=== PATIENT | male | born 1960 | race Caucasian/White ===

== ENCOUNTER → 2017-12-19 | Outpatient (CLI) | payer BC ==
[~2017-12-19] MED LIST: CATHETER FLUSH 10 ML SYR IV PRN; CEPH500C PO; GLIM4TAB; IBUP-1780; LOSA100T28; METF1000; OMEP20CA12; SITA100T12; TEST90SO
[2017-12-19 08:06] VITALS: BP 162/72
--- NOTE | 2017-12-19 20:28 | STRESS TEST ---
DATE OF SERVICE: 12/19/2017 NUCLEAR MYOVIEW REPORT REFERRING PHYSICIAN: Dr. Del Rosario. In summary, patient was injected with 10.34 mCi of technetium-99 Myoview and the resting images were obtained. Then, the patient received a stress dose of 31.3 mCi of technetium-99 Myoview. The test was supervised by Dr. Del Rosario. The resting and stressed images were reviewed and compared in the short axis, horizontal long axis, and vertical long axis views. Review of the images showed fixed defect involving the whole inferior wall and inferolateral wall with mild cosme-infarct ischemia. SSS is 21. SDS 3, TID value 0.89. On the gated images, the left ventricle appeared to be prominent with end diastolic volume 142 mL, end systolic volume 79 mL, hypokinesia at the inferior wall and inferolateral wall with calculated ejection fraction 44%. CONCLUSION: 1. Fixed defect involving the whole inferior wall and inferolateral wall with cosme-infarct ischemia. 2. Prominent left ventricle with hypokinesia at the inferior wall still some contractility reserved in the inferior wall. Calculated ejection fraction 44%. Job ID: [id number] DocumentID: [id number] Dictated Date: 12/19/2017 15:55:26 Fish Egg Packer Date: 12/19/2017 20:27:50 Dictated By: RADHA ERAZO MD
== END ==
LOC: CARD 06:40
PROVIDERS: ATTEND Internal Medicine
DX: R07.9 Chest pain, unspecified (principal)
CPT/HCPCS: 78452; 93017

== ENCOUNTER 2018-01-09 12:07 | Day surgery (SDC) | payer BC ==
[~2018-01-09] VITALS: Ht 180.3 cm; Wt 93.0 kg
[~2018-01-09 12:07] MED LIST changes: -CATHETER FLUSH 10 ML SYR IV PRN; -GLIM4TAB; +GLIM4TAB PO; -IBUP-1780; +IBUP-1780 PO; -LOSA100T28; +LOSA100T28 PO; -METF1000; +METF1000 PO; -OMEP20CA12; +OMEP20CA12 PO; -SITA100T12; +SITA100T12 PO
[2018-01-09 12:10] VITALS: BP 100/75
[2018-01-09] MEDS ORDERED: CATHETER FLUSH 10 ML SYR IV PRN (13:00)
[2018-01-09] MEDS: LACTATED RINGERS 1,000 ML IV SCH ×2 (13:52→20:51)
--- NOTE | 2018-01-09 14:13 | History & Physicial ---
History of Present Illness History of Present Illness Reason for visit/HPI To undergo incision and drainage of right gluteal abscess. 1 week history of pain and redness and swelling over the right gluteal region with clinical examination confirming the abscess. Date of Admission 01/09/18 Date Seen by Provider: Jan 09, 2018 Time Seen by Provider: 13:00 I consulted on this patient on 01/09/18 14:11 Attending Physician Bebeto Mills MD Admitting Physician Zeus Del Rosario DO Consult Allergies and Home Medications Allergies Coded Allergies: No Known Drug Allergies (Unverified , 12/12/15) Patient Home Medication List Home Medication List Reviewed: Yes Past Gbjxtzz-Soisks-Qxygux Hx Patient Social History Marrital Status: Employed/Student: employed Smoking Status: Never a Smoker Recent Foreign Travel: No Contact w/other who traveled: No Recent Infectious Disease Expo: No Immunizations Up To Date Tetanus Booster (TDap): More than 5yrs Cardiovascular Yes Hypertension Gastrointestinal No Musculoskeletal No Endocrine History of Endocrine Disorders: Yes Endocrine Disorders: Diabetes, Non-Insulin dep Family Medical History Significant Family History: No Pertinent Family Hx Constitutional: fever, malaise EENTM: no symptoms reported Respiratory: no symptoms reported Cardiovascular: no symptoms reported Gastrointestinal: see HPI Genitourinary: no symptoms reported Musculoskeletal: no symptoms reported Skin: no symptoms reported Psychiatric/Neurological: No Symptoms Reported Physical Exam Vital Signs Capillary Refill : General Appearance: Mild Distress Neck: Normal Inspection Respiratory: Lungs Clear Cardiovascular: Regular Rate, Rhythm Gastrointestinal: Soft, Other Rectal: Deferred Neurologic/Psychiatric: Alert, Oriented x3 Comments Abscess over the right gluteal region. Assessment/Plan Assessment and Plan Gentleman with a right gluteal abscess. Diabetes, controlled with medications. 4 formal incision and drainage under general anesthetic. Details of the procedure, requirement for managing the wound with an open technique with the drain etc. discussed. Seems to be in agreement to proceed Problems: Admission Diagnosis Admission Status: Other (Same Day Surgery) BEBETO MILLS MD Jan 09, 2018 2:13 pm
--- NOTE | 2018-01-09 14:14 | Progress Note-Pre Operative ---
Pre-Operative Progress Note H&P Reviewed The H&P was reviewed, patient examined and no changes noted. Date Seen by Provider: Jan 09, 2018 Time Seen by Provider: 13:00 Date H&P Reviewed: Jan 09, 2018 Time H&P Reviewed: 14:14 Pre-Operative Diagnosis: Right gluteal abscess BEBETO MILLS MD Jan 09, 2018 2:14 pm
[2018-01-09] MEDS ORDERED: ROCURONIUM 10 MG/ML 5 ML SYRINGE IV ONE (14:53)
[2018-01-09] MEDS ORDERED: proPOfol 200 MG/20 ML (DIPRIVAN) VIAL IV ONE (14:53)
[2018-01-09] MEDS ORDERED: ONDANSETRON 4 MG/2 ML (SDV) Z0FRAN ONE (14:53)
[2018-01-09] MEDS ORDERED: LIDOCAINE PF 2% 5 ML (XYLOCAINE) VIAL ONE (14:53)
[2018-01-09] MEDS ORDERED: SUCCINYLCHOLINE INJ 100 MG/5 ML SYR ONE (14:54)
[2018-01-09] MEDS ORDERED: fentaNYL INJECTION 100 MCG/2 ML AMP ONE ×2 (14:54→15:46)
[2018-01-09] MEDS ORDERED: MIDAZOLAM 2 MG/2 ML (VERSED) VIAL ONE (14:54)
[2018-01-09] MEDS ORDERED: ceFAZolin 2 GM IV Premixed 50 ML IV ONE (15:15)
[2018-01-09] MEDS ORDERED: metroNIDAZOLE 500MG/100ML IVPB 100 ML ONE (15:49)
[2018-01-09] MEDS ORDERED: SEVOFLURANE (ULTANE) 15 ML INHAL SOLN ONE (15:53)
[2018-01-09] MEDS ORDERED: morphine INJ 10 MG/ML 1ML (SYR OR VIAL) ONE (15:58)
[2018-01-09] MEDS ORDERED: fentaNYL INJECTION 100 MCG/2 ML AMP IVP PRN (16:00)
[2018-01-09] MEDS ORDERED: LACTATED RINGERS 1,000 ML IV SCH (16:00)
[2018-01-09] MEDS ORDERED: ONDANSETRON 4 MG/2 ML (SDV) Z0FRAN IVP PRN ×2 (16:00→16:30)
[2018-01-09] MEDS ORDERED: PIPERACILLIN SODIUM/TAZOBACTAM 4.5 GM in NS (IVPB) 100 ML IV SCH (16:00)
--- NOTE | 2018-01-09 16:04 | Operative Report ---
Operative Report Date of Procedure/Surgery Jan 09, 2018 Surgeon (s) BEBETO MILLS MD Farm Implement Mechanic (s): N/A Post-Operative Diagnosis Right ischiorectal abscess Procedure Performed Incision and drainage Description of Procedure Anesthesia Type: General Estimated blood loss (mL): Minimal Specimen(s) collected/removed Pus for culture Description of the Procedure Indication for the procedure: This gentleman, who is a diabetic, presented with what appeared to be a simple right gluteal abscess requiring drainage. However , as would be described under the operative report, it turned out to be an ischiorectal abscess. He was offered formal incision and drainage under general anesthetic. Informed consent was obtained after reviewing the operative details and highlighting increased complications due to diabetes and the potential for recurrence. Description of the procedure: He was initially placed supine on the operating table and general anesthesia induced. Subsequently, he was placed in left lateral decubitus position and his pressure areas were padded and protected. 2 g of Ancef were administered intravenously at the commencement of the operation. Once ischiorectal abscesses confirmed, we had the SENIOR FINANCE MANAGER administer 500 mg of Flagyl as well. An elliptical incision about 5 cm long was made over the right gluteal region, encountering pus and necrotic tissue. The former was sent for culture. Necrotic tissue was excised, leading to the confirmation of an ischiorectal abscess with a nqbbp-[id number]-[id number] extension, anteriorly. Once healthy tissue was encountered, hemostasis was achieved using cautery and the cavity irrigated with saline. A Carley drain was left along the anterior extension of the abscess cavity, being secured with a 2-0 silk suture. A nonadherent dressing was then applied. He tolerated the procedure well and was turned supine before being extubated and taken to the recovery room in stable condition. Findings of the Procedure See op report Allergies and Home Medications Allergies Coded Allergies: No Known Drug Allergies (Unverified , 12/12/15) Patient Home Medication List Home Medication List Reviewed: Yes BEBETO MILLS MD Jan 09, 2018 16:04
[2018-01-09] MEDS ORDERED: morphine INJ 10 MG/ML 1ML (SYR OR VIAL) IVP PRN (16:30)
[2018-01-09] MEDS ORDERED: MEPERIDINE (DEMEROL) INJ 50 MG/ML IVP PRN (16:30)
[2018-01-09] MEDS ORDERED: HYDROmorphone (DILAUDID) 2 MG/ML VIAL IVP PRN (16:30)
[2018-01-09 17:10] VITALS: BP 140/66
[2018-01-09] MEDS ORDERED: PIPERACILLIN SODIUM/TAZOBACTAM 4.5 GM in NS (IVPB) 100 ML IV NR (17:30)
[2018-01-09] MEDS: inSUlin ASPART (NovoLOG) 1 UNIT/0.01 ML (CHARGE PER UNIT) SC SCH ×2 (17:38→20:52)
[2018-01-09] MEDS ORDERED: FENO145T20 PO (17:57)
[2018-01-09] MEDS ORDERED: ERGO50006 PO (17:57)
[2018-01-09] MEDS ORDERED: ASPI-983 PO (17:58)
[2018-01-09 19:24] VITALS: BP 138/73
[2018-01-09] MEDS ORDERED: VANCOMYCIN 1500 MG/NS 500 ML IVPB IV SCH ×2 (20:00)
[2018-01-09] MEDS: HYDROcodone/APAP 5 MG/325 MG (LORTAB) TAB PO PRN (20:15)
[2018-01-09 20:43] LABS: BUN/CREATININE RATIO 18; CARBON DIOXIDE 25 MMOL/L (21-32); CHLORIDE 101 MMOL/L (98-107); CREATININE SERUM 1.23 MG/DL (0.60-1.30); GFR ESTIMATED > 60; GLUCOSE 298 MG/DL (70-105); POTASSIUM 4.2 MMOL/L (3.6-5.0); SODIUM 133 MMOL/L (135-145)
[2018-01-09] MEDS ORDERED: VANCOMYCIN INJECTION 1,000 MG in NS (IVPB) 250 ML IV ONE (21:00)
[2018-01-10] VITALS: BP 122/73
[2018-01-10] MEDS: PIPERACILLIN SODIUM/TAZOBACTAM 4.5 GM in NS (IVPB) 100 ML IV SCH ×3 (00:27→14:00)
[2018-01-10 04:00] VITALS: BP 128/60
[2018-01-10] MEDS: LACTATED RINGERS 1,000 ML IV SCH (05:01)
[2018-01-10] MEDS: HYDROcodone/APAP 5 MG/325 MG (LORTAB) TAB PO PRN ×2 (06:00→14:47)
[2018-01-10] MEDS: inSUlin ASPART (NovoLOG) 1 UNIT/0.01 ML (CHARGE PER UNIT) SC SCH ×3 (06:01→16:32)
[2018-01-10] MEDS ORDERED: VANCOMYCIN 1500 MG/NS 500 ML IVPB IV SCH ×2 (07:00)
[2018-01-10] MEDS ORDERED: PANTOPRAZOLE 20 MG TABLET (PROTONIX) PO SCH (07:00)
[2018-01-10 08:00] VITALS: BP_SYST 72
--- NOTE | 2018-01-10 08:06 | Anesthesia-General Post-Op ---
General Patient Condition Mental Status/LOC: Same as Preop Cardiovascular: Satisfactory Nausea/Vomiting: Absent Respiratory: Satisfactory Pain: Controlled Complications: Absent Post Op Complications Complications None Follow Up Care/Instructions Patient Instructions None needed. Anesthesia/Patient Condition Patient Condition Patient is doing well, no complaints, stable vital signs, no apparent adverse anesthesia problems. No complications reported per nursing. [place] [facility] [place] No DOREEN CALLAHAN CRNA Jan 10, 2018 08:06
[2018-01-10] MEDS ORDERED: OMEPRAZOLE 20 MG (PriLOSEC) CAP NON-FORMULARY PO SCH (09:00)
[2018-01-10] MEDS ORDERED: LOSARTAN 100 MG (COZAAR) TABLET PO SCH (09:00)
[2018-01-10] MEDS ORDERED: VANCOMYCIN INJECTION 0.1 MG in NS (IVPB) 250 ML IV SCH (09:00)
--- NOTE | 2018-01-10 10:26 | Progress Note-Standard ---
Standard Progress Note Progress Notes/Assess & Plan Date Seen by Provider: Jan 10, 2018 Time Seen by Provider: 08:15 Progress/Assessment & Plan Pain control much better. Afebrile. Vegetations on the aortic valve reported by his manager risk management. He moderate Streptococcus on culture from the abscess. Could be discharged on Augmentin. Patient confirms having a follow-up with his manager risk management in 36 hours. Final Diagnosis Ischiorectal abscess. Bacterial endocarditis involving the aortic valve BEBETO MILLS MD Jan 10, 2018 10:26
[2018-01-10] MEDS ORDERED: INFLUENZA TRIvalent 2017-2018 0.5 ML/45 MCG SYR IM ONE (11:15)
[2018-01-10 12:00] VITALS: BP 143/76
[2018-01-10] MEDS ORDERED: ACHD5005 PO (13:22)
[2018-01-10] MEDS ORDERED: AMOX-358 PO (13:26)
--- NOTE | 2018-01-10 13:26 | Discharge Inst-Simple/Standard ---
Discharge Inst-Standard Discharge Medications New, Converted or Re-Newed RX: RX on Chart Patient Instructions/Follow Up Plan of Care/Instructions/FU: May shower. ABD pad to the wound. Follow up with his milling supervisor as scheduled. Follow-up with me in 1 week. Please educate on the awareness about a [place] drain being there. Activity as Tolerated: No Goal: Off work until seen by his milling supervisor Discharge Diet: ADA Diet Planned Outpatient Orders/Ref. Pneu Vac Indicated: Yes BEBETO MILLS MD Jan 10, 2018 1:26 pm
[2018-01-10 16:20] VITALS: BP 138/76
[2018-01-10 18:28] VITALS: BP 138/76
[2018-01-11] MEDS ORDERED: TROUGH ORDER-PHARMACY XX NR (06:00)
== END 2018-01-10 18:25 ==
LOC: SDC 12:07 → 4TH 17:04 → SDC 01-10 18:25
PROVIDERS: ATTEND Surgery
DX: K61.3 Ischiorectal abscess (principal); E11.9 Type 2 diabetes mellitus without complications; I10 Essential (primary) hypertension; I35.8 Other nonrheumatic aortic valve disorders; Z79.899 Other long term (current) drug therapy; Z79.84 Long term (current) use of oral hypoglycemic drugs; Z11.2 Encounter for screening for other bacterial diseases
CPT/HCPCS: 36415; 80048; 82962; 87070; 87075; 87081; 87205

== ENCOUNTER 2018-06-22 10:00 | Inpatient (IN) | payer BC ==
[~2018-06-22] VITALS: Ht 180.3 cm; Wt 70.6 kg
[~2018-06-22 10:00] MED LIST changes: +ACHD5005 PO; +AMOX-358 PO; +ASPI-983 PO; +ERGO50006 PO; +FENO145T37 PO; -LOSA100T28 PO; +LOSA100T8 PO; +METF-399 PO; -METF1000 PO
[2018-06-22 10:15] VITALS: BP 106/70
--- NOTE | 2018-06-22 11:27 | Physical Therapy Evaluation ---
PT Evaluation-General Medical Diagnosis Admission Date Jun 22, 2018 at 10:00 Medical Diagnosis: disuse myopathy Onset Date: Jun 22, 2018 Therapy Diagnosis Therapy Diagnosis: impaired strength, mobility, and endurance Height/Weight Height (Feet): 5 Height (Inches): 11.00 Weight (Pounds): 205 Weight (Ounces): 0.0 Precautions Precautions/Isolations: Standard Precautions Weight Bear Status Right Lower Extremity: Right Full Weight Bearing Left Lower Extremity: Left Full Weight Bearing Referral Physician: Venancio Reason for Referral: Evaluation/Treatment Medical History Pertinent Medical History: Atrial Fib, CAD, DM, HTN, MS, Renal Insufficiency Additional Medical History Ulcer on sacrum Current History Pt was initially admitteed to [facility] in late December with endocarditis of the aortic valve. He was started on antibiotic therapy. Shortly after, he presented with SOA and was found to have fluid overload and A fib with RVR. This was followed by an MS which resulted in Cardiac cath with 3 vessel disease with a valve replacement. Since the MS, he ended up with ESRD and on dialysis. He was also on a vent during the course of this stay and now has a tracheostomy. Also found to have severe protein calorie malnutrition. vocal cord paralysis, aortic endocarditis s/p valve repair, respiratory failure w/ tracheostomy placement, severe protein calorie malnutrition. 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 PT Evaluation-Current Subjective Pt comes to rehab unit in W/C, transferred to bed prior to treatment, pt reports pain only when sitting due to wound in sacral area. Pt/Family Goals to be independent at home Objective Patient Orientation: Person, Place, Time, Situation Problem Solving: Fair Attachments: PEG Tube, Other-See Comments, IV Tracheostomy ROM/Strength ROM Lower Extremities ROM B LE is grossly WFL Strenght Lower Extremities RLE (hip flexion 3-/5, knee extension 3/5, knee flexion 3+/5, dorsiflexion 0/5, plantarflexion 3/5) LLE ((hip flexion 3+/5, knee extension 4/5, knee flexion 4/5, dorsiflexion 2/5, plantarflexion 3/5) Integumentary/Posture Integumentary Refer to nursing notes. Bowel Incontinence: Yes Bladder Incontinence: Yes Posture In standing, forward flexed at the hips, rounded shoulders and head down. Has difficulty with full knee extension in standing. Neuromuscular (Tone, Coordination, Reflexes) Tone is WFL; impaired functional coordination likely due to weakness of the LE' s. Sensory Vision: Functional Hearing: Functional Hand Dominance: Right (for writing and eating but reports he is ambidextrous) Sensation Right Lower Extremit: Intact Sensation Left Lower Extremity: Intact Transfers Functional [place] Measure 0=Not Assessed/NA 4=Minimal Assistance 1=Total Assistance 5=Supervision or Setup 2=Maximal Assistance 6=Modified [place] 3=Moderate Assistance 7=Complete IndependenceIRFPAI Quality Coding Scale 6 Independent with activity with or without an assistive device 5 Patient requires set up or clean up by helper. Patient completes activity by themselves 4 Supervision or touching assist (CGA). [place] provide cues , steadying assist 3 The helper provides less than half the effort to complete the activity 2 The helper provides more than half the effort to complete the activity 1 Dependent. The helper does all the effort to complete an activity 7 Patient refused to complete or attempt activity 9 The patient did not perform the activity before the current illness or injury 88 Not attempted due to Medical conditions or safety concerns Transfers (B, C, W/C) (FIM): 4 Scootin Rollin Roll Left to Right (QC): 4 Supine to/from Sit: 5 Sit to/from Stand: 4 bed t/f WC(FIM only if WC use): 5 Sit to Lying (QC): 4 Lying to Sitting/Side of Bed(Q: 4 Sit to Stand (QC): 4 Chair/Fdr-hk-Dnowk Xfer(QC): 4 Car Transfer (QC): 4 Pt is able to transfer supine <->sit w/ SBA, sit<->stand Cate, chair<->bed SBA, and car transfers SBA. Gait Does the Patient Walk?: Yes Mode of Locomotion: Walk Anticipated Mode of Locomotion: Walk Gait (FIM): 4 Distance (FIM): 3=150 ft Walk 10 feet (QC): 5 Walk 50 ft with 2 Turns(QC): 4 Walk 150 ft (QC): 4 Walking 10ft/uneven surface-QC: 4 Distance: 150' Gait Level of Assist: 4 Gait Persons Needed: 1 Gait Assistive Device: FWW Comments/Gait Description Pt ambulates 150' w/ CGA, pt demonstrates foot drop on RLE, occasional scissoring gait w/ cues needed for standing up straight and keeping the walker close Wheelchair Training Does the Pt Use a Wheelchair?: No Stairs Stairs (FIM): 2 #of Steps: 1 Level of Assist: 4 1 Step (curb) (QC): 3 4 Steps (QC): 88 Assistive Device: Walker 12 Steps (QC): 88 Pt able to step up/down 1 step w/ Cate when ascending and CGA for descent Balance Sitting Static: Normal Sitting Dynamic: Fair Standing Static: Fair Standing Dynamic: Fair Picking up an Object (QC): 88 Treatment Pt educated on differences between OT and PT, treatment requirements for this facility, and various aspects/features of the rehab unit. Co treat with OT to address functional transfers and mobility. Pt required the skill of 2 disciplines to accomplish the tasks due to the high level of care, cues and sequences necessary. OT addressed UE use and positioning as PT addressed safety with gross motor tasks. Assessment/Needs Pt demonstrates impaired mobility, strength, balance, and endurance due to lengthy hospital stay and multiple medical conditions. He present with severe weight loss and loss of muscle tissue B LE's. He will benefit from skilled PT intervention to address these deficits to allow him to return home and care for himself. Rehab Potential: Fair PT Short Term Goals Short Term Goals Time Frame: Jun 29, 2018 Transfers (B,C,W/C) (FIM): 5 Gait (FIM): 5 Distance (FIM): 3=150 ft Gait Distance Comment: 200' Gait Level of Assist: 5 Gait Assistive Device: FWW PT Diesel Locomotive Engineer Goals Residential Goals PT Diesel Locomotive Engineer Goals Time Frame: Jul 13, 2018 Transfers (B,C,W/C) (FIM): 6 Sit to Lying (QC): 6 Lying-Sitting on Side/Bed(QC): 6 Sit to Stand (QC): 6 Rollin Roll Left to Right (QC): 6 Chair/Hal-yd-Ieaxz Xfer(QC): 6 Car Transfer (QC): 6 Does the Patient Walk: Yes Gait (FIM): 6 Distance: 500' Walk 10 feet (QC): 6 Walk 10ft-Uneven Surface(QC): 6 Walk 50ft with 2 Turns (QC): 6 Walk 150 ft (QC): 6 Gait Level of Assist: 6 Gait Assistive Device: FWW Stairs (FIM): 5 (household exception) # of Steps: 4 1 Step (curb) (QC): 6 4 Steps (QC): 6 12 Steps (QC): 0 Picking up an Object (QC): 4 PT Plan Problem List Problem List: Activity Tolerance, Functional Strength, Safety, Balance, Gait, Transfer, Bed Mobility, ROM Treatment/Plan Treatment Plan: Continue Plan of Care Treatment Plan: Bed Mobility, Education, Functional Activity Camryn, Functional Strength, Group Therapy, Gait, Safety, Therapeutic Exercise, Transfers Treatment Duration: Jul 13, 2018 Frequency: Modified Program (IRF) (due to dialysis) Estimated Hrs Per Day: 1.5 hours per day Patient and/or Family Agrees t: Yes Safety Risks/Education Patient Education: Gait Training, Transfer Techniques, Steps, Correct Positioning, Safety Issues Teaching Recipient: Patient Teaching Methods: Demonstration, Discussion Response to Teaching: Reinforcement Needed Discharge Recommendations Plan Pt will perform gait and mobility training, balance exercises, transfer training , functional strengthening/AROM, endurance training, and education to improve mobility and independence at home. Time/GCodes Time In: 1015 Time Out: 1120 (OT eval [id number]) Total Billed Treatment Time: 55 Total Billed Treatment 1 visit EVM 10 FA 45 (co treat with OT [id number]) VIPUL SHI PT Jun 22, 2018 11:27
[2018-06-22] MEDS: ENOXAPARIN 40 MG/0.4 ML (LOVENOX) SYR SC SCH (11:35)
[2018-06-22] MEDS: inSUlin ASPART (NovoLOG) 1 UNIT/0.01 ML (CHARGE PER UNIT) SC SCH ×2 (11:39→18:00)
[2018-06-22] MEDS: SUCRALFATE 1 GM (CARAFATE) TAB PEG SCH ×2 (11:40→17:05)
[2018-06-22] MEDS: PANTOPRAZOLE 40 MG (PROTONIX) VIAL IV SCH ×2 (11:48→20:43)
[2018-06-22] MEDS: SCOPOLAMINE 1.5 MG (TRANSDERM-SCOP) PATCH TOP SCH (11:48)
--- NOTE | 2018-06-22 12:30 | Wound Care Assessment ---
Wound Care Assessment Date Seen by Provider: Jun 22, 2018 Time Seen by Provider: 12:10 Chief Complaint Sacral pressure ulcer. HPI The patient is a 57 year old male diabetic with a 6 month history of grave illness, arising from rectal abscess --> endocarditis --> sepsis --> multiple organ failure syndrome, end stage renal disease on dialysis, Stage 4 sacral pressure ulcer, which is healing. There has been NPWT used in the past. The patient has minimal pain in the wound. Past Medical History: Admits Diabetes Type II, Admits Heart Disease (S/P aortic valve replacement.), Admits Myocardial Infarction End stage renal disease, on dialysis. Smoking Status: Unknown if Ever Smoked Review of Systems General: No Chills Pulmonary: No Dyspnea (has tracheostomy.) Cardiovascular: No: Chest Pain Gastrointestinal: Other (Incontinent of stool.) Neurological: Weakness (Right leg, ambulates with walker.) Exam Capillary Refill : General Appearance: no apparent distress, thin (Cachectic.) Neck: normal inspection Cardiovascular: regular rate, rhythm Respiratory: normal breath sounds, no respiratory distress Gastrointestinal: non tender Back: other (sacral pressure ulcer -- 2.8 x 1.2 x 0.9 cm, base 100% slough, mod. s.s. drainage. Tunnel at 12 o'clock, 2.7 cm deep.) Results Laboratory Tests 06/22/18 11:34: Glucometer 91 Assessment/Plan/Dx 1. Pressure ulcer, sacral, stage 4, with apparent healing present. 2. Diabetes mellitus, with ulcer of skin. 3. End stage renal disease, on dialysis. 4. Malnutrition. 5. Debility. Plan: Continue low air loss mattress, Hydrofera Blue dressings, frequent repositioning, careful toilet. DARIO QUIROZ MD Jun 22, 2018 12:30
--- NOTE | 2018-06-22 13:27 | HISTORY AND PHYSICAL ---
DATE OF SERVICE: 06/22/2018 CHIEF COMPLAINT: Difficulty with walking. HISTORY OF PRESENT ILLNESS: The patient is a 57-year-old male who has been healthy and working for the [employer] and living with his spouse in [place], [place], who developed a rectal abscess, requiring surgery. He subsequently developed a sepsis, respiratory failure. He had endocarditis of the aortic valve. He was treated at [facility], started on antibiotic therapy. He developed atrial fibrillation. He was discharged to home for a brief time, readmitted and had a cardiac arrest, felt to be due to ST elevation OR. After resuscitation, he underwent cardiac cath with 3-vessel disease. He ultimately did have his valve replaced. The patient became anuric post-cardiac arrest and subsequently was seen by renal service. He is now on dialysis 3 times a week. The patient went on to LTAC in [place] where he was weaned off his ventilator. He remained n.p.o. and on tube feeds due to vocal cord paralysis and has a trach. He is at high risk of aspiration, felt to be secondary to bilateral vocal cord paralysis. On 03/27/2018, the patient was evaluated by [facility]. He developed unstageable sacral wound. This was provided with care. He was transferred to [facility] on 04/27/2018. The patient continued to have a trach, peg and a stage IV sacral wound care. He is now referred to inpatient rehabilitation at [facility] so as to be close to the home with the approval of his commercial insurance for a 2-week trial to enhance his level of functional independence prior to hopefully discharge home with spouse. He will have dialysis 3 times a week at local dialysis center. Currently, he requires assistance for his ADLs and mobility skills. He is n.p.o. and dependent for tube feeding. PAST MEDICAL HISTORY: Diabetes mellitus. PCP, Dr. Del Rosario. Hypertension. He also has lost quite a bit of weight and has severe protein calorie malnutrition and is on continuous tube feeds. PAST SURGICAL HISTORY: PTCA with stent placement, mediastinal exploration with hematoma evacuation, aortic valve replacement, tracheostomy, PEG, tunneled hemodialysis catheter, hernia repair. ALLERGIES: No known medication allergies. FAMILY HISTORY: Noncontributory. SOCIAL HISTORY: Essentially as per above. REVIEW OF SYSTEMS: A 10-point review of systems significant for weakness, easy fatigue, pain in a sacral area due to pressure sore with sitting. MEDICATIONS: Aranesp 100 mcg on Mondays, folic acid 1 mg per PEG daily, Levemir 30 units per PEG subQ daily, prednisone 50 mg per PEG daily, Wellbutrin 150 mg b.i.d. per PEG, Coreg 12.5 mg per PEG b.i.d., Lactinex one tablet per PEG b.i.d., melatonin 3 mg per PEG at bedtime, MiraLax 17 gram per PEG at bedtime, Ambien 5 mg per PEG at bedtime, NovoLog sliding scale insulin regimen A q.6 hour, Accu-Cheks q.6 hours, Carafate 1 gram q.6 hours per PEG, Lovenox 40 mg subQ daily, Protonix 40 mg IV b.i.d., scopolamine patch 1.5 mg q.72 hours topically for nausea, Nephro Tube reeds at 55 mL per hour continuous. PHYSICAL EXAMINATION: GENERAL: Significant for a debilitated, thin male, alert and oriented, lying in bed, no acute distress. Glucometer is 91. HEENT: Vision, speech, hearing is grossly intact. No oral lesions noted. NECK: Tracheostomy in place. No drainage noted. CHEST: Has a tunneled hemodialysis line in place, clear. HEART: Regular rhythm. ABDOMEN: PEG tube in place. Soft, nontender, bowel sounds present. EXTREMITIES: No lower leg edema, no calf tenderness. MUSCULOSKELETAL: The patient has functional active range of motion in all 4 limbs. SKIN: The patient has a sacral pressure sore. NEUROLOGIC: Cognition appears grossly intact. Sensation grossly intact to touch. Strength, generalized weakness. Right lower extremity hip flexion 3-/5, knee extension 3/5, knee flexion 3+/5 dorsiflexion 0/5, plantar flexion 3/5. Left lower extremity hip flexion 3+/5, knee extension 4/5 knee flexion 4/5, dorsiflexion 2/5, plantar flexion 3/5. IMPRESSION: 1. Critical illness myopathy, status post endocarditis due to rectal abscess with aortic valve replacement. 2. Status post tracheostomy. 3. Status post percutaneous endoscopic gastrostomy. 4. Coronary artery disease status post ST elevation myocardial infarction. 5. Status post cardiac arrest. 6. End-stage renal disease, on dialysis 3 times a week. 7. Atrial fibrillation, controlled with medication. 8. Bilateral vocal cord paralysis, n.p.o. on tube feedings. 9. Severe protein calorie malnutrition, on tube feeds. 10. Respiratory failure with trach. 11. Sacral pressure sore stage 4 PLAN: The patient is admitted for a comprehensive program of inpatient rehabilitation with goal of maximizing level of functional independence prior to discharge home with spouse. The patient will have PT, OT 90 minutes per day each discipline 5 days a week for 2 weeks with the above goals in mind. Please see post-admission physician evaluation, which is separate document for details of plan of care. Speech therapy to do speech, swallow, cognitive assessment and treat as indicated. Rehabilitation nursing assist with bowel, bladder, skin, wound care, medication administration and trach care, tube feed administration, PEG tube care. Respiratory therapy to assist with trach care, monitoring O2 sat. Wound care consult with Dr. Echols for a pressure sore. Continue current medications. Consult hospitalist service in lieu of Dr. Del Rosario for medical management. environmental services associate to assist with discharge planning, community reentry.Please see NELSON for admission vital signs. ESTIMATED LENGTH OF STAY: The patient has been approved for 2 weeks by his commercial insurance. We will reassess at team conference next week --18. DIET: Tube feedings as per above. CODE STATUS: Full code. Job ID: [id number] DocumentID: [id number] Dictated Date: 06/22/2018 11:48:43 Pharmaceutical Representative Date: 06/22/2018 13:26:57 Dictated By: FISH MACIAS MD MTDD
[2018-06-22] MEDS ORDERED: BUPR-168 PEG (13:39)
--- NOTE | 2018-06-22 14:11 | PM&R Post Admission Assessment ---
Post Admission Physician Asses Date seen by provider: Jun 22, 2018 Time seen by provider: 14:00 The preadmission screen agrees with the post admission assessment that the patient is a good candidate for inpatient rehabilitation. The patient will have a comprehensive program of inpatient rehabilitation with a goal of maximizing level of functional independence prior to discharge home with spouse. The patient will have PT/OT ninety minutes per day, each discipline, five days a week for 2 weeks for gait, strengthening, conditioning , balance, ADLs, any patient/family/caregiver training as necessary. Speech therapy to do cognitive assessment and treat as indicated. Rehabilitation nursing to assist with bowel, bladder, skin, wound care, medication administration, pain management. Unleavened Dough Mixer to assist with discharge planning, community reentry. SCD's and lovenox subcut for DVT prophylaxis. He appears to be well motivated to participate in three hours of therapy a day. He should be able to tolerate three hours of therapy a day from a medical and surgical standpoint. He should benefit from the three hours of therapy a day. He has a reasonable discharge plan, reasonable discharge rehabilitation goals and a supportive family. He has various comorbidities that need to be closely monitored with medications and treatments adjusted on a daily basis as needed. These include: ESRD A FIB Dysphagia on Tube feeds Protein calorie malnutrition CAD S/P trach Bilateral vocal core Paralysis IDDM IGC code 03.8 Etiologic DX Disuse myopathy Barriers to discharge for this patient who had been independent prior to this are for him to be modified independent to supervision for ADLs and mobility skills prior to discharge home with [family], so as to lessen the burden of the caregivers. Risks for this patient include: 1. Fall 2. Fracture 3. DVT 4. Pulmonary embolism 5. Wound infection 6. Skin breakdown 7. Contractures 8. Poorly controlled pain 9. Urinary retention 10. UTI 11. Respiratory infection 12. Aspiration [] Estimated Length of Stay: []days Prognosis: Rehab prognosis appears good for goal of discharge home with [family ] modified independent to supervision for ADLs and mobility skills. General: Alert, Oriented X3, Cooperative, No Acute Distress, Other (Afebrile P =89 RR 16 BP 106/76 02 sats 100%% RA) HEENT: PERRLA, EOMI, Mucous Memb Moist/[place]: Supple, No JVD, Other (Trach functioning) Lungs: Clear to Auscultation Heart: Regular Rate Abdomen: Normal Bowel Sounds, Soft, No Tenderness, Other (Peg tube in place HD catheter in left anterior chest) Extremities: No Edema Skin: Other (Stage 4 pressure sore sacrum) Neuro: Other (Generalized weakness Lower limbs >Upper and RT lower limb >left) Psych/Mental Status: Mental Status NL FISH MACIAS MD Jun 22, 2018 14:11
[2018-06-22] MEDS ORDERED: INSU100V16 SQ (14:40)
[2018-06-22] MEDS ORDERED: ACET325T38 PO (14:40)
[2018-06-22] MEDS ORDERED: ZOLP5TAB7 PO (14:40)
[2018-06-22] MEDS ORDERED: METO10TA3 PO (14:40)
[2018-06-22] MEDS ORDERED: PRED5TAB PO (14:40)
[2018-06-22] MEDS ORDERED: FOLI1TAB24 PO (14:40)
[2018-06-22] MEDS ORDERED: NITR0.4T42 SL (14:40)
[2018-06-22] MEDS ORDERED: ENOX30DI4 SQ (14:40)
[2018-06-22] MEDS ORDERED: CARV12.52 PO (14:40)
[2018-06-22] MEDS ORDERED: BALS60OI TP (14:40)
[2018-06-22] MEDS ORDERED: PROM25VI IVP (14:40)
[2018-06-22] MEDS ORDERED: INSU100V6 SQ (14:40)
[2018-06-22] MEDS ORDERED: CHLO473M4 MM (14:40)
[2018-06-22] MEDS ORDERED: POLY17PO6 PO (14:40)
[2018-06-22] MEDS ORDERED: ALBU2.5V4 NEB (14:40)
[2018-06-22] MEDS ORDERED: L.AC1CAP6 PEG (14:40)
[2018-06-22] MEDS ORDERED: MELA3TAB PO (14:40)
[2018-06-22] MEDS ORDERED: PROT1PAC2 PEG (14:40)
[2018-06-22] MEDS ORDERED: SCOP1PAT17 TD (14:40)
[2018-06-22] MEDS ORDERED: ONDA4TAB8 PEG (14:40)
[2018-06-22] MEDS ORDERED: LORA0.5T PO (14:40)
[2018-06-22] MEDS ORDERED: PANT40VI IV (14:40)
[2018-06-22] MEDS ORDERED: SUCR1ORA PEG (14:40)
--- NOTE | 2018-06-22 15:21 | Occupational Therapy Eval ---
OT Evaluation-General/PLF Medical Diagnosis Admission Date Jun 22, 2018 at 10:00 Medical Diagnosis: disuse myopathy Onset Date: Jun 22, 2018 Therapy Diagnosis Therapy Diagnosis: Weakness/Decreased ADL skills Height/Weight Height (Feet): 5 Height (Inches): 11.00 Weight (Pounds): 143 Weight (Ounces): 1.0 Precautions Precautions/Isolations: Standard Precautions Weight Bear Status Weight Bearing Restriction: Weight Bearing/Tolerated Referral Physician: Venancio Referral Reason: Activity Tolerance, Self Care, Evaluation/Treatment, Strengthening/ROM Medical History Pertinent Medical History: Atrial Fib, CAD, DM, HTN, [place], Renal Insufficiency Additional Medical History Aortic endocarditis s/p valve repair, weight loss, respiratory failure. Current History Pt. developed infection in coccyx area. Infection spread. Pt. has been in hospital setting since December. Pt. has trach and PEG tube. Pt's vocal chords are paralyzed. Reviewed History: Yes Social History Home: Single Level Current Living Status: Spouse Entry Into Home: Stairs Without Railing Steps Into Home: 2 Steps Inside Home: 0 ADL-Prior Level of Function ADL PLOF Comments Previous to hospitalization, pt. was independent with all ADL tasks. DME/Equipment: Shower Occupation: Works for [employer] Drive Self: Yes OT Current Status Subjective Pt. does not report pain. Appearance Pt. alert. Comes to this facility via wheelchair transport. Mental Status/Objective Patient Orientation: Person, Place, Time, Situation Attachments: IV, PEG Tube Current Hand Dominance: Right (for writing and eating but reports he is ambidextrous) Upper Extremity ROM Pt. is able to flex bilateral shoulders to approximately 90 degrees. Upper Extremity Strength 3/5 strength in left UE distally 2+/5 strength in right UE distally ADL-Treatment Functional [place] Measure 0=Not Assessed/NA 4=Minimal Assistance 1=Total Assistance 5=Supervision or Setup 2=Maximal Assistance 6=Modified [place] 3=Moderate Assistance 7=Complete IndependenceIRFPAI Quality Coding Scale 6 Independent with activity with or without an assistive device 5 Patient requires set up or clean up by helper. Patient completes activity by themselves 4 Supervision or touching assist (CGA). [place] provide cues , steadying assist 3 The helper provides less than half the effort to complete the activity 2 The helper provides more than half the effort to complete the activity 1 Dependent. The helper does all the effort to complete an activity 7 Patient refused to complete or attempt activity 9 The patient did not perform the activity before the current illness or injury 88 Not attempted due to Medical conditions or safety concerns Eating (QC): 88 Lower Body Dressing (FIM): 2 Lower Body Dressing (QC): 2 On/Off Footwear (QC): 2 Toileting (FIM): 1 (Pt. incontinent and has colostomy bag.) Toileting Hygiene (QC): 1 Transfers (B, C, W/C) (FIM): 3 (Min assist supine-sit. Mod assist sit-stand.) Other Treatments Pt. states that he had a bed bath at prior facility. Completed co-treatment with PT due to pt's fatigue level, and need for skilled care. OT focused on UE strength testing, ADL assessment, and education for safety and positioning. PT focused on transfers and mobility. Required multiple rest breaks. All needs met back in room after ambulation, (please see PT note for distance), as well as overall assessment for endurance. Pt. has trach placement and PEG tube. Pt. educated about OT goals and rehab goals in general. Pt. verbalizes understanding. Education OT Patient Education: Correct positioning, Modified ADL techniques, Progress toward Goal/Update tx plan, Purpose of tx/functional activities, Reviewed precautions, Rehab process, Transfer techniques Teaching Recipient: Patient Teaching Methods: Demonstration, Discussion Response to Teaching: Verbalize Understanding, Return Demonstration OT Short Term Goals Short Term Goals Time Frame: Jul 06, 2018 Grooming(FIM): 5 Bathing(FIM): 4 Upper Body Dressing(FIM): 4 Lower Body Dressing(FIM): 4 Toileting(FIM): 4 Transfers (B,C,W/C) (FIM): 5 Toilet/Commode Transfer(FIM): 5 Shower Transfer(FIM): 4 Additional Short Term Goals: 1-Demonstrate ADL Tasks, 2-Verbalize Understanding , 3-ImproveStrength/[place] 1=Demonstrate adherence to instructed precautions during ADL tasks. 2=Patient will verbalize/demonstrate understanding of assistive devices/ modifications for ADL. 3=Patient will improve strength/tolerance for activity to enable patient to perform ADL's. OT Intermediate Goals Supreme [address] Justice Goals Time Frame: Jul 20, 2018 Groomin Oral Hygiene (QC): 4 Bathing(FIM): 5 Shower/Bathe Self (QC): 4 Upper Body Dressing(FIM): 5 Upper Body Dressing (QC): 4 Lower Body Dressing(FIM): 5 Lower Body Dressing (QC): 4 On/Off Footwear (QC): 4 Toileting(FIM): 5 Toileting Hygiene (QC): 4 Transfers (B,C,W/C) (FIM): 6 Toilet/Commode Transfer(FIM): 6 Toilet/Commode Transfer (QC): 6 Shower Transfer(FIM): 5 Additional Goals: 1-Demonstrate ADL Tasks, 2-Verbalize Understanding, 3- ImproveStrength/Camryn 1=Demonstrate adherence to instructed precautions during ADL tasks. 2=Patient will verbalize/demonstrate understanding of assistive devices/ modifications for ADL. 3=Patient will improve strength/tolerance for activity to enable patient to perform ADL's. OT Education/Plan Problem List/Assessment Assessment: Decreased Activ Tolerance, Decreased UE Strength, Dependent Transfers, Impaired Bed Mobility, Impaired Funct Balance, Impaired I ADL's, Impaired Self-Care Skills, Restricted Funct UE ROM Discharge Recommendations Plan/Recommendations: Continue POC Therapy D/C Recommendations: Home w/ Family Support, Occupational Therapy Home Care, Scheduled Assistance Comment Discharge goals and equipment to be determined. Treatment Plan/Plan of Care Treatment,Training & Education: Yes Patient would benefit from OT for education, treatment and training to promote independence in ADL's, mobility, safety and/or upper extremity function for ADL' s. Plan of Care: ADL Retraining, Functional Mobility, Group Exercise/Act as Ind, UE Funct Exercise/Act Treatment Duration: Jul 20, 2018 Frequency: At least 5 of 7 days/Wk (IRF) Estimated Hrs Per Day: 1.5 hours per day Agreement: Yes Rehab Potential: Fair Time/GCodes Start Time: 10:25 Stop Time: 11:05 Total Time Billed (hr/min): 40 Billed Treatment Time 5431-5594 OT eval x 10minutes [id number] FA x 30minutes. PT co-treat. Please see above for designated roles. JOSE EMERSON OT Jun 22, 2018 15:21
--- NOTE | 2018-06-22 15:27 | Physical Therapy Daily Note ---
PT Daily Note-Current Subjective Pt in bed pre tx, agrees to PT, pain in sacrum when sitting too long, Pt needs assistance donning brief and shorts Appearance pt in bed post tx w/ phone, call light, tray, all needs met Mental Status Patient Orientation: Person, Place, Time Transfers Functional [place] Measure 0=Not Assessed/NA 4=Minimal Assistance 1=Total Assistance 5=Supervision or Setup 2=Maximal Assistance 6=Modified [place] 3=Moderate Assistance 7=Complete IndependenceIRFPAI Quality Coding Scale 6 Independent with activity with or without an assistive device 5 Patient requires set up or clean up by helper. Patient completes activity by themselves 4 Supervision or touching assist (CGA). [place] provide cues , steadying assist 3 The helper provides less than half the effort to complete the activity 2 The helper provides more than half the effort to complete the activity 1 Dependent. The helper does all the effort to complete an activity 7 Patient refused to complete or attempt activity 9 The patient did not perform the activity before the current illness or injury 88 Not attempted due to Medical conditions or safety concerns Transfers (B, C, W/C) (FIM): 4 Supine to/from Sit: 5 Sit to/from Stand: 4 supine<->sit SBA, sit<->stand pt requires multiple attempts, but is able to stand w/ Cate, cues needed for foot positioning Weight Bearing Right Lower Extremity: Right Full Weight Bearing Left Lower Extremity: Left Full Weight Bearing Gait Training Does the Patient Walk?: Yes Gait (FIM): 3 Distance (FIM): 3=150 ft Distance: 150x3 Gait Level of Assist: 4 Gait Persons Needed: 1 Gait Assistive Device: FWW Pt ambulates around rehab unit 150' before needing rest break, using FWW and CGA , pt demonstrates scissoring when fatigued w/ R foot drop and flexed LEs Exercises Seated Therapy Exercises: Ankle pumps, Long arc quads, Hip flexion Seated Reps: 20 Treatments gait and mobility training, functional strengthening Assessment Current Status: Fair Progress improved endurance and bed mobility, pt occasionally demonstrates LOB when turning and positioning FWW PT Short Term Goals Short Term Goals Time Frame: Jun 29, 2018 Transfers (B,C,W/C) (FIM): 5 Gait (FIM): 5 Distance (FIM): 3=150 ft Gait Distance Comment: 200' Gait Level of Assist: 5 Gait Assistive Device: FWW PT Alf Goals Alf Goals PT [employer] Lineman Goals Time Frame: Jul 13, 2018 Transfers (B,C,W/C) (FIM): 6 Sit to Lying (QC): 6 Lying-Sitting on Side/Bed(QC): 6 Sit to Stand (QC): 6 Rollin Roll Left to Right (QC): 6 Chair/Oap-jf-Allzg Xfer(QC): 6 Car Transfer (QC): 6 Does the Patient Walk: Yes Gait (FIM): 6 Distance: 500' Walk 10 feet (QC): 6 Walk 10ft-Uneven Surface(QC): 6 Walk 50ft with 2 Turns (QC): 6 Walk 150 ft (QC): 6 Gait Level of Assist: 6 Gait Assistive Device: FWW Stairs (FIM): 5 (household exception) # of Steps: 4 1 Step (curb) (QC): 6 4 Steps (QC): 6 12 Steps (QC): 0 Picking up an Object (QC): 4 PT Plan Problem List Problem List: Activity Tolerance, Functional Strength, Safety, Balance, Gait, Transfer, Bed Mobility Treatment/Plan Treatment Plan: Continue Plan of Care Treatment Plan: Bed Mobility, Education, Functional Activity [place], Functional Strength, Group Therapy, Gait, Safety, Therapeutic Exercise, Transfers Treatment Duration: Jul 13, 2018 Frequency: Modified Program (IRF) (due to dialysis) Estimated Hrs Per Day: 1.5 hours per day Patient and/or Family Agrees t: Yes Safety Risks/Education Patient Education: Gait Training, Transfer Techniques, Correct Positioning, Safety Issues Teaching Recipient: Patient Teaching Methods: Demonstration, Discussion Response to Teaching: Reinforcement Needed Time/GCodes Time In: 1430 Time Out: 1500 Total Billed Treatment Time: 30 Total Billed Treatment 1 visit GT x2 VIPUL SHI PT Jun 22, 2018 15:27
--- NOTE | 2018-06-22 15:41 | Occupational Ther Daily Note ---
OT Current Status-Daily Note Subjective No pain reported. Appearance Pt. in bed asleep. Getting tube feed. Pt. wakes up and agrees to work with OT. Mental Status/Objective Patient Orientation: Person, Place, Time, Situation Functional [place] Measure 0=Not Assessed/NA 4=Minimal Assistance 1=Total Assistance 5=Supervision or Setup 2=Maximal Assistance 6=Modified [place] 3=Moderate Assistance 7=Complete [place] Attachments: Colostomy/Ileostomy, PEG Tube ADL-Treatment Functional [place] Measure 0=Not Assessed/NA 4=Minimal Assistance 1=Total Assistance 5=Supervision or Setup 2=Maximal Assistance 6=Modified [place] 3=Moderate Assistance 7=Complete IndependenceIRFPAI Quality Coding Scale 6 Independent with activity with or without an assistive device 5 Patient requires set up or clean up by helper. Patient completes activity by themselves 4 Supervision or touching assist (CGA). [place] provide cues , steadying assist 3 The helper provides less than half the effort to complete the activity 2 The helper provides more than half the effort to complete the activity 1 Dependent. The helper does all the effort to complete an activity 7 Patient refused to complete or attempt activity 9 The patient did not perform the activity before the current illness or injury 88 Not attempted due to Medical conditions or safety concerns Other Treatment Pt. completed 4 bilateral UE exercises, with red sponge for hand strength x 20 reps, and then with red theraband x 15 reps x 3 exercises in all planes. Pt. also educated on AE for LE bathing and dressing. Pt. issued equipment for room. Verbalizes understanding. Pt. able to roll self in bed to comfort level. All needs met. Education OT Patient Education: Correct positioning, Exercise program, Modified ADL techniques, Progress toward Goal/Update tx plan, Purpose of tx/functional activities, Reviewed precautions, Rehab process, Transfer techniques, Use of adapted equipment Teaching Recipient: Patient Teaching Methods: Demonstration, Discussion Response to Teaching: Verbalize Understanding, Return Demonstration OT Short Term Goals Short Term Goals Time Frame: Jul 06, 2018 Grooming(FIM): 5 Bathing(FIM): 4 Upper Body Dressing(FIM): 4 Lower Body Dressing(FIM): 4 Toileting(FIM): 4 Transfers (B,C,W/C) (FIM): 5 Toilet/Commode Transfer(FIM): 5 Shower Transfer(FIM): 4 Additional Short Term Goals: 1-Demonstrate ADL Tasks, 2-Verbalize Understanding , 3-ImproveStrength/[place] 1=Demonstrate adherence to instructed precautions during ADL tasks. 2=Patient will verbalize/demonstrate understanding of assistive devices/ modifications for ADL. 3=Patient will improve strength/tolerance for activity to enable patient to perform ADL's. OT Mcc Goals Mcc Goals Time Frame: Jul 20, 2018 Groomin Oral Hygiene (QC): 4 Bathing(FIM): 5 Shower/Bathe Self (QC): 4 Upper Body Dressing(FIM): 5 Upper Body Dressing (QC): 4 Lower Body Dressing(FIM): 5 Lower Body Dressing (QC): 4 On/Off Footwear (QC): 4 Toileting(FIM): 5 Toileting Hygiene (QC): 4 Transfers (B,C,W/C) (FIM): 6 Toilet/Commode Transfer(FIM): 6 Toilet/Commode Transfer (QC): 6 Shower Transfer(FIM): 5 Additional Goals: 1-Demonstrate ADL Tasks, 2-Verbalize Understanding, 3- ImproveStrength/[place] 1=Demonstrate adherence to instructed precautions during ADL tasks. 2=Patient will verbalize/demonstrate understanding of assistive devices/ modifications for ADL. 3=Patient will improve strength/tolerance for activity to enable patient to perform ADL's. OT Education/Plan Problem List/Assessment Assessment: Decreased Activ Tolerance, Decreased UE Strength, Dependent Transfers, Impaired Funct Balance, Impaired I ADL's, Impaired Self-Care Skills, Restricted Funct UE ROM Discharge Recommendations Plan/Recommendations: Continue POC Therapy D/C Recommendations: Home w/ Family Support, Occupational Therapy Home Care, Scheduled Assistance Equpiment Recommendations-D/C: Hip Kit Treatment Plan/Plan of Care Treatment,Training & Education: Yes Patient would benefit from OT for education, treatment and training to promote independence in ADL's, mobility, safety and/or upper extremity function for ADL' s. Plan of Care: ADL Retraining, Functional Mobility, Group Exercise/Act as Ind, UE Funct Exercise/Act Treatment Duration: Jul 20, 2018 Frequency: At least 5 of 7 days/Wk (IRF) Estimated Hrs Per Day: 1.5 hours per day Agreement: Yes Rehab Potential: Fair Time/GCodes Start Time: 12:55 Stop Time: 13:30 Total Time Billed (hr/min): 35 Billed Treatment Time 1, Ex x 2 JOSE EMERSON OT Jun 22, 2018 15:41
--- NOTE | 2018-06-22 15:50 | ST Cognitive Linguistic Eval ---
Speech Evaluation-General Medical Diagnosis disuse myopathy Onset Date: Jun 22, 2018 Therapy Diagnosis Therapy Diagnosis: Cognition Precautions Precautions/Isolations: Standard Precautions Referral Referring Physician: Dr. Craft Reason for Referral: Evaluation/Treatment Medical History Pertinent Medical History: Atrial Fib, CAD, DM, HTN, OR, Renal Insufficiency Reviewed History: Yes Social History Current Living Status: Spouse Speech PLF-Current Status Prior Level of Function pt was independent Subjective pt cooperative. Pain Numeric Pain Scale: 0-No Pain Language Eval: Auditory Comprehends Simple Yes/No Ques: Functional Follows 1-Step Commands: Functional Follows Complex Directions: Functional Follows General Conversations: Functional Language Eval: Verbal Language Completes Spontaneous Greeting: Functional Produces Auto, Serial Info: Functional Word Finding: Functional Requests Basic Needs: Functional States Basic Personal Info: Functional Expresses Complex Ideas: Functional Language Evaluation: Reading NT Cognitive Patient Orientation oriented x 3 Objective Cognitive Domain Attention: WNL Memory: WNL Problem Solving: Functional Objective Results [facility] was administered to assess cognitive-linguistic functioning. Results are as follows: Memory - 3 word recall was 3/3 for immediate, delayed and remotely delayed. Sequencing - 4/4 Problem Solving - Simple 3/4; Abstract 2/2; Comparisons 4/5 Yes/no questions 9/10 Speech/language WFL Oral Motor/Speech Production WFL Impression Functional cognitive-linguistic skills. No skilled ST needed for cognitive- linguistic functioning. Communication/Social Cognition Comprehension: 6 Expression: 7 Social Interaction: 7 Problem Solvin Memory: 7 Speech Patient Assess Expression of Ideas/Wants: Expression (4) Understanding Verbal Content: Understands (4) Brief Interview-Mental Status: Yes Repetition of Three Words: Three (3) Temporal Orientation: Year: Correct (3) Temporal Orientation: Month: Accurate within 5 days(2) Temporal Orientation: Day: Correct (1) Recall : Wear to say "Sock": Yes, no cue required (2) Recall : Color: Yes, no cue required (2) Recall : Bed: Yes, no cue required (2) Speech Short Term Goals Short Term Goals Short Term Goals No goals established as skilled ST not indicated. Speech Thermal Cutter Hand Goals Alf Goals No goals established as skilled ST not indicated. Speech-Plan Patient/Family Goals Patient/Family Goals: to return home. Treatment Plan Speech Therapy Treatment Plan: Modify Plan, See Comments (No skilled ST indicated) No skilled speech tx indicated Frequency: Modified Program (IRF) (0) Estimated Hrs Per Day: Other (0) Rehab Potential: Fair Pt/Family Agrees to Plan: Yes Safety Risks/Education Teaching Recipient: Patient Teaching Methods: Discussion Response to Teaching: Verbalize Understanding Time Speech Therapy Time In: 15:00 Speech Therapy Time Out: 15:35 Total Billed Time: 35 Billed Treatment Time 1, SPSNDCOMP LINA French Jun 22, 2018 15:50
[2018-06-22 16:26] VITALS: BP 135/86
[2018-06-22] MEDS: NYSTATIN ORAL SUSP 5 ML UDC PO SCH (17:05)
[2018-06-22] MEDS: ALPRAZolam 0.5 MG (XANAX) TAB PEG PRN (17:05)
[2018-06-22] MEDS: POLYETHYLENE GLYCOL 17 GM (MIRALAX) PACK PEG SCH (19:49)
[2018-06-22] MEDS: MELATONIN 3 MG TABLET PEG SCH (20:43)
[2018-06-22] MEDS: ZOLPIDEM 5 MG (AMBIEN) TAB PEG SCH (20:43)
[2018-06-22] MEDS: CARVEDILOL 12.5 MG (COREG) TABLET PEG SCH (20:43)
[2018-06-22] MEDS: LACTOBACILLUS Acidoph/Bulgar (LACTINEX/FLORANEX) TAB PEG SCH (20:43)
[2018-06-22] MEDS: buPROPion 100 MG (WELLBUTRIN) TAB PEG SCH (20:43)
[2018-06-23] MEDS: SUCRALFATE 1 GM (CARAFATE) TAB PEG SCH ×4 (00:35→17:25)
[2018-06-23] MEDS: ALPRAZolam 0.5 MG (XANAX) TAB PEG PRN ×2 (00:35→20:13)
[2018-06-23] MEDS: NYSTATIN ORAL SUSP 5 ML UDC PO SCH ×4 (00:35→17:25)
[2018-06-23] MEDS: inSUlin ASPART (NovoLOG) 1 UNIT/0.01 ML (CHARGE PER UNIT) SC SCH ×4 (00:36→18:04)
[2018-06-23] MEDS: ACETAMINOPHEN 325 MG TABLET PO PRN (01:58)
[2018-06-23] MEDS: predniSONE 10 MG TAB PEG SCH (06:17)
[2018-06-23 06:26] VITALS: BP 132/82
--- NOTE | 2018-06-23 07:54 | PM & R (SOAP) Progress Note ---
Subjective This was a face to face visit with the patient. Date Seen by Provider: Jun 23, 2018 Time Seen by Provider: 07:35 Subjective/Events-last exam Patient was seen in his room this AM Patient Min assist for transfers Discussed case with RN from evenings Patient didnt sleep well due to pressure sore pain Discussed with RN last night meds adjusted ST asks about NPO status and swallow sssssstudy Indicatee to faisal that vocal cords reported to be paralyzed and that he may need to f/u with PULM/ENT re further recs Patient remains NPO for now and on Tube feeds continuous.Otherwise adjusting well to unit Review of Systems Neurological: Weakness Objective Physician Exam Last Set of Vital Signs Vital Signs Date Time Temp Pulse Resp B/P (MAP) Pulse Ox O2 Delivery O2 Flow Rate FiO2 06/23/18 06:26 98.2 75 16 132/82 (99) 99 Room Air Capillary Refill : I&O Intake and Output 06/23/18 00:00 Intake Total 358 ml Output Total 325 ml Balance 33 ml Intake Oral 0 ml Tube Feeding 358 ml Output Urine Total 325 ml # Bowel Movements 2 Daily Weight Change Yes, Unsure # of pounds General: Alert, Oriented X3, Cooperative, No Acute Distress, Other (Afebrile P =89 RR 16 BP 106/76 02 sats 100%% RA) HEENT: PERRLA, EOMI, Mucous Memb Moist/[place] Neck: Supple, No JVD, Other (Trach functioning) Lungs: Clear to Auscultation Heart: Regular Rate Abdomen: Normal Bowel Sounds, Soft, No Tenderness, Other (Peg tube in place HD catheter in left anterior chest) Extremities: No Edema Skin: Other (Stage 4 pressure sore sacrum) Neuro: Other (Generalized weakness Lower limbs >Upper and RT lower limb >left) Psych/Mental Status: Mental Status NL Results Lab Data Laboratory Tests 06/22/18 11:34: Glucometer 91 06/22/18 18:49: Glucometer 153H 06/23/18 00:34: Glucometer 136H 06/23/18 06:29: Glucometer 101 Assessment/Plan Assessment and Plan 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
[2018-06-23 09:00] LABS: ABG BASE EXCESS 3.1 MMOL/L (-2.5-2.5); ABG OXYGEN SATURATION 98 % (94-100); ABG PCO2 43 MMHG (35-45); ABG PH 7.42 (7.37-7.43); ABG PO2 79 MMHG (79-93); ABG TCO2 29.1 MMOL/L (21.0-31.0)
[2018-06-23 09:04] LABS: ALLENS TEST YES-POS; INSPIRED O2 ROOM AIR; PATIENT TEMP 95.5; VENTILATOR NO
[2018-06-23] MEDS: LACTOBACILLUS Acidoph/Bulgar (LACTINEX/FLORANEX) TAB PEG SCH (09:24)
[2018-06-23] MEDS: buPROPion 100 MG (WELLBUTRIN) TAB PEG SCH ×2 (09:24→20:13)
[2018-06-23] MEDS: PANTOPRAZOLE 40 MG (PROTONIX) VIAL IV SCH ×2 (09:24→20:14)
[2018-06-23] MEDS: FOLIC ACID 1 MG TAB PEG SCH (09:24)
[2018-06-23] MEDS: CARVEDILOL 12.5 MG (COREG) TABLET PEG SCH ×2 (09:24→20:13)
[2018-06-23 09:25] LABS: BASOPHILS % (AUTO) 0 % (0-10); EOSINOPHILS # (AUTO) 0.1 10^3/uL (0.0-0.3); EOSINOPHILS % (AUTO) 2 % (0-10); HEMATOCRIT 29 % (40-54); HEMOGLOBIN 9.8 G/DL (13.3-17.7); LYMPHOCYTES # (AUTO) 0.7 X 10^3 (1.0-4.0); LYMPHOCYTES % (AUTO) 12 % (12-44); MEAN CORPUSCULAR HEMOGLOBIN 32 PG (25-34); MEAN CORPUSCULAR HGB CONC 34 G/DL (32-36); MEAN CORPUSCULAR VOLUME 93 FL (80-99); MEAN PLATELET VOLUME 10.3 FL (7.4-10.4); MONOCYTES # (AUTO) 0.5 X 10^3 (0.0-1.0); MONOCYTES % (AUTO) 9 % (0-12); NEUTROPHILS # (AUTO) 4.5 X 10^3 (1.8-7.8); NEUTROPHILS % (AUTO) 77 % (42-75); PLATELET COUNT 88 10^3/uL (130-400); RED BLOOD COUNT 3.08 10^6/uL (4.35-5.85); RED CELL DISTRIBUTION WIDTH 15.9 % (10.0-14.5); WHITE BLOOD COUNT 5.8 10^3/uL (4.3-11.0)
[2018-06-23] MEDS: inSUlin DETERMIR 1 UNIT/0.01 ML (LEVEMIR) CHARGE PER UNIT SQ SCH (09:25)
--- NOTE | 2018-06-23 10:19 | Pulmonary Consultation ---
History of Present Illness History of Present Illness Date of Consultation 06/23/18 10:16 Time Seen by Provider: 10:55 Date of Admission History of Present Illness 57yo patient developed rectal abscess that required surgery while at [facility] in [place]. Post surgery patient went into severe sepsis and respiratory failure. Pt had endocarditis of aortic valve. He was initially sent home from [facility] and was readmitted to hospital when he went into cardiac arrest. Pt was on the ventilator for an extended period of time. After cardiac arrest pt underwent heart cath and was found to have 3 vessel disease. During extendended hospitalization pt did have renal failure and required HD. PT did also have his aortic valve replaced. He was transferred to [facility] where he was weaned off ventilator. Currently he is in our rehab unit undergoing PT/OT. I am consulted secondary to patients tracheostomy. Pt would like to have it removed. Allergies and Home Medications Allergies Coded Allergies: No Known Drug Allergies (Unverified , 12/12/15) Home Medications No Active Prescriptions or Reported Meds Past Iqlacji-Epovzk-Qyqmwx Hx Patient Social History Alcohol Use: Denies Use Recreational Drug Use: No Smoking Status: Unknown if Ever Smoked Type Used: Cigarettes Former Smoker, Quit: Dec 19, 2017 Recent Foreign Travel: No Contact w/Someone Who Travel: No Recent Infectious Disease Expo: No Recent Hopitalizations: Yes Immunizations Up To Date Tetanus Booster (TDap): More than 5yrs Seasonal Allergies Seasonal Allergies: No Past Medical History Surgeries: Yes (LEFT INGUINAL HERNIA REPAIR, APPROX 2002) Tonsillectomy Respiratory: Yes (CAPPED MAGGIE TRACH) Cardiac: Yes Heart Murmur, Hypertension Neurological: No Genitourinary: Yes (DIALYSIS PATIENT) Renal Failure Gastrointestinal: Yes (PEG) Musculoskeletal: Yes (RLE BRACE) Foot Drop Endocrine: Yes Diabetes, Non-Insulin dep HEENT: No Cancer: No Psychosocial: Yes Depression Integumentary: Yes (SACRAL PRESSURE ULCER) Family Medical History Alzheimer's disease 19 MOTHER Diabetes mellitus 19 FATHER No Pertinent Family Hx Review of Systems Time Seen by Provider: 11:17 Constitutional: Fever, Chills, Sweats, Weakness, Malaise, Other Eyes: No: Pain, Vision change, Conjunctivae inflammation, Eyelid inflammation, Other, Redness ENT: No: Ear pain, Ear discharge, Nose pain, Nose discharge, Nose congestion, Mouth pain, Mouth swelling, Throat pain, Throat swelling, Other Respiratory: No: Cough, Dry, Shortness of breath, SOB with excertion, Wheezing , Hemoptysis, Pleuritic Pain, Sputum, Wheezing, Other Sepsis Event Evaluation Height, Weight, BMI Height: 5'11.00" Weight: 147lbs. 7.2oz. [id number]; 20.0 BMI Method:Stated Exam Exam Vital Signs Date Time Temp Pulse Resp B/P (MAP) Pulse Ox O2 Delivery O2 Flow Rate FiO2 06/23/18 06:26 98.2 75 16 132/82 (99) 99 Room Air 06/22/18 21:24 Room Air 06/22/18 20:07 94 Room Air 06/22/18 16:26 96.4 89 14 135/86 (102) 100 Room Air I & O 06/23/18 07:00 Intake Total 1103 ml Output Total 675 ml Balance 428 ml Height & Weight Height: 5'11.00" Weight: 147lbs. 7.2oz. 66.520249br; 20.0 BMI Method:Stated General Appearance: No Apparent Distress, WD/WN, Chronically ill, Cachetic HEENT: PERRL/EOMI, Normal ENT Inspection, Pharynx Normal Neck: Full Range of Motion, Supple, Other (tracheostomy tube in place.) Respiratory: Chest Non Tender, Lungs Clear, Normal Breath Sounds, No Accessory Muscle Use, No Respiratory Distress Cardiovascular: No Edema, No Gallop, No JVD, No Murmur, Normal Peripheral Pulses Capillary Refill: Less Than 3 Seconds Gastrointestinal: non tender Extremity: Normal Capillary Refill, Normal Inspection, Normal Range of Motion Neurologic/Psychiatric: Alert, Oriented x3 Skin: Normal Color, Warm/Dry Lymphatic: No Adenopathy Results Lab Laboratory Tests 06/23/18 09:15 Assessment/Plan Assessment/Plan S/p cardiac arrest with extended ventilator dependance and s/p tracheostomy -Check CXR -Check Labs s/p tracheostomy from prolonged ventilator dependance - ? of vocal chord paralysis per previous hospital records -Discussed with Dr. Morales. He will evaluate patient tomorrow and give further recommendations. -Tracheostomy has been capped since rehab admission. Pt is not requiring oxygen. No mucous production. -Possible d/c tracheostomy tube on Tuesday if patient is still doing well. -Speech eval pending. Currently patient in NPO CAD s/p ID S/P severe sepsis and endocarditis S/p PEG tube ESRD with HD severe protein kwan malnutrition CRISTÓBAL MCKINNON DO Jun 23, 2018 10:19
[2018-06-23] MEDS: ENOXAPARIN 40 MG/0.4 ML (LOVENOX) SYR SC SCH (10:28)
--- NOTE | 2018-06-23 10:34 | Physical Therapy Daily Note ---
PT Daily Note-Current Subjective Pt in bed pre tx, agrees to PT, no pain to report, pt needs assistance radha swanson and grady. Will be co-treating with OT for 60 min. Appearance Pt in bed post tx, w/ phone, call light, and tray, all needs met Mental Status Patient Orientation: Person, Place, Time Attachments: PEG Tube Transfers Functional Person Measure 0=Not Assessed/NA 4=Minimal Assistance 1=Total Assistance 5=Supervision or Setup 2=Maximal Assistance 6=Modified Person 3=Moderate Assistance 7=Complete IndependenceIRFPAI Quality Coding Scale 6 Independent with activity with or without an assistive device 5 Patient requires set up or clean up by helper. Patient completes activity by themselves 4 Supervision or touching assist (CGA). [place] provide cues , steadying assist 3 The helper provides less than half the effort to complete the activity 2 The helper provides more than half the effort to complete the activity 1 Dependent. The helper does all the effort to complete an activity 7 Patient refused to complete or attempt activity 9 The patient did not perform the activity before the current illness or injury 88 Not attempted due to Medical conditions or safety concerns Transfers (B, C, W/C) (FIM): 4 Scootin Rollin Supine to/from Sit: 5 Sit to/from Stand: 4 Bed to/from Chair: 5 sit<->stand Cate w/ cues to lean forward and push off bed/chair, supine<->sit SBA Weight Bearing Right Lower Extremity: Right Full Weight Bearing Left Lower Extremity: Left Full Weight Bearing Gait Training Does the Patient Walk?: Yes Gait (FIM): 4 Distance: 100',150'x2 Gait Level of Assist: 4 Gait Persons Needed: 1 Gait Assistive Device: FWW Pt ambulates to shower room, then to/from gym using FWW w/ CGA, Cate needed for turns, pt ambulates slow, unsteady w/ turns but no LOB, w/ scissoring gate, R foot drop and flexed knees Exercises Seated Therapy Exercises: Ankle pumps (x10), Sit to stand (x5), Long arc quads (x10), Hip flexion (x10) Treatments gait training and mobility, functional strengthening, transfer training, Patient was also showered. Assessment Current Status: Fair Progress improved endurance and improved transfers, fewer cues needed and better stability upon standing pt tends to ignore lines and tubes when positioning for transfers PT Short Term Goals Short Term Goals Time Frame: Jun 29, 2018 Transfers (B,C,W/C) (FIM): 5 Gait (FIM): 5 Distance (FIM): 3=150 ft Gait Distance Comment: 200' Gait Level of Assist: 5 Gait Assistive Device: FWW Wheelchair Distance: SEE PT GOALS PT Correction Goals Correction Goals PT Correction Goals Time Frame: Jul 13, 2018 Transfers (B,C,W/C) (FIM): 6 Sit to Lying (QC): 6 Lying-Sitting on Side/Bed(QC): 6 Sit to Stand (QC): 6 Rollin Roll Left to Right (QC): 6 Chair/Azx-fx-Snmno Xfer(QC): 6 Car Transfer (QC): 6 Does the Patient Walk: Yes Gait (FIM): 6 Distance: SEE PT GOALS Walk 10 feet (QC): 6 Walk 10ft-Uneven Surface(QC): 6 Walk 50ft with 2 Turns (QC): 6 Walk 150 ft (QC): 6 Gait Level of Assist: 6 Gait Assistive Device: FWW Stairs (FIM): 5 (household exception) # of Steps: 4 1 Step (curb) (QC): 6 4 Steps (QC): 6 12 Steps (QC): 0 Picking up an Object (QC): 4 PT Plan Problem List Problem List: Activity Tolerance, Functional Strength, Safety, Balance, Gait, Transfer, Bed Mobility, ROM Treatment/Plan Treatment Plan: Continue Plan of Care Treatment Plan: Bed Mobility, Concurrent Therapy, Education, Functional Activity Camryn, Functional Strength, Group Therapy, Gait, Safety, Therapeutic Exercise, Transfers Treatment Duration: Jul 13, 2018 Frequency: Modified Program (IRF) (due to dialysis) Estimated Hrs Per Day: 1.5 hours per day Patient and/or Family Agrees t: Yes Safety Risks/Education Patient Education: Gait Training, Transfer Techniques, Correct Positioning, Safety Issues Teaching Recipient: Patient Teaching Methods: Demonstration, Discussion Response to Teaching: Reinforcement Needed Time/GCodes Time In: 0900 Time Out: 1000 Total Billed Treatment Time: 60 Total Billed Treatment 1 visit GT 20' EX10' FA 30' Co-treat w/ OT 60'. OT showered patient, functional transfers and mobility and UE positioning and strengthening. Pt required the skill of 2 disciplines to accomplish the tasks due to the high level of care, cues and sequences necessary. OT addressed UE use and positioning, and showering as PT addressed gait training, LE functional strengthening and safety. DONNELL MA PT Jun 23, 2018 10:34
--- NOTE | 2018-06-23 10:45 | Occupational Ther Daily Note ---
OT Current Status-Daily Note Subjective Pt alert, lying in bed. Pt agrees to therapy. No c/o pain at this time. Pt was nauseous earlier this morning. Mental Status/Objective Patient Orientation: Person, Place, Time, Situation Functional [place] Measure 0=Not Assessed/NA 4=Minimal Assistance 1=Total Assistance 5=Supervision or Setup 2=Maximal Assistance 6=Modified [place] 3=Moderate Assistance 7=Complete [place] Attachments: PEG Tube, Other-See Comments (PICC) ADL-Treatment Completed co-treatment with PT due to pt's decreased activity tolerance and need for skilled care. OT focused on UE strength and ADL's , and education for safety and positioning. PT focused on transfers, LE strengthening and mobility. Functional [place] Measure 0=Not Assessed/NA 4=Minimal Assistance 1=Total Assistance 5=Supervision or Setup 2=Maximal Assistance 6=Modified [place] 3=Moderate Assistance 7=Complete IndependenceIRFPAI Quality Coding Scale 6 Independent with activity with or without an assistive device 5 Patient requires set up or clean up by helper. Patient completes activity by themselves 4 Supervision or touching assist (CGA). [place] provide cues , steadying assist 3 The helper provides less than half the effort to complete the activity 2 The helper provides more than half the effort to complete the activity 1 Dependent. The helper does all the effort to complete an activity 7 Patient refused to complete or attempt activity 9 The patient did not perform the activity before the current illness or injury 88 Not attempted due to Medical conditions or safety concerns Eating (FIM): 88 Eating (QC): 88 Grooming (FIM): 5 (Set up. Pt able to complete while sitting up in bed. ) Oral Hygiene (QC): 5 Bathing (FIM): 3 Bathing Location: L Arm, R Arm, L Upper Leg, R Upper Leg, Chest, Abdomen, Perineal Area Shower/Bathe Self (QC): 2 Upper Body (FIM): 4 (Min A, pt able to manipulate and get arms into button down shirt, pt attempted but unable to button shirt. ) Upper Body Dressing (QC): 3 Lower Body Dressing (FIM): 2 (Max A, pt unable to reach LE. ) Lower Body Dressing (QC): 2 On/Off Footwear (QC): 2 Toileting (FIM): 1 (Incontinent of bowel) Toileting Hygiene (QC): 1 Shower Transfer(FIM): 4 (Using FWW and shower chair with cutout pt able to complete, min A. Assist needed for lines on tube feeding.) OT Short Term Goals Short Term Goals Time Frame: Jul 06, 2018 Grooming(FIM): 5 Bathing(FIM): 4 Upper Body Dressing(FIM): 4 Lower Body Dressing(FIM): 4 Toileting(FIM): 4 Transfers (B,C,W/C) (FIM): 5 Toilet/Commode Transfer(FIM): 5 Shower Transfer(FIM): 4 Additional Short Term Goals: 1-Demonstrate ADL Tasks, 2-Verbalize Understanding , 3-ImproveStrength/Camryn 1=Demonstrate adherence to instructed precautions during ADL tasks. 2=Patient will verbalize/demonstrate understanding of assistive devices/ modifications for ADL. 3=Patient will improve strength/tolerance for activity to enable patient to perform ADL's. OT Sap Payroll Consultant Goals Group Home Goals Time Frame: Jul 20, 2018 Groomin Oral Hygiene (QC): 4 Bathing(FIM): 5 Shower/Bathe Self (QC): 4 Upper Body Dressing(FIM): 5 Upper Body Dressing (QC): 4 Lower Body Dressing(FIM): 5 Lower Body Dressing (QC): 4 On/Off Footwear (QC): 4 Toileting(FIM): 5 Toileting Hygiene (QC): 4 Transfers (B,C,W/C) (FIM): 6 Toilet/Commode Transfer(FIM): 6 Toilet/Commode Transfer (QC): 6 Shower Transfer(FIM): 5 Additional Goals: 1-Demonstrate ADL Tasks, 2-Verbalize Understanding, 3- ImproveStrength/Camryn 1=Demonstrate adherence to instructed precautions during ADL tasks. 2=Patient will verbalize/demonstrate understanding of assistive devices/ modifications for ADL. 3=Patient will improve strength/tolerance for activity to enable patient to perform ADL's. OT Education/Plan Discharge Recommendations Plan/Recommendations: Continue POC Treatment Plan/Plan of Care Patient would benefit from OT for education, treatment and training to promote independence in ADL's, mobility, safety and/or upper extremity function for ADL' s. Plan of Care: ADL Retraining, Functional Mobility, Group Exercise/Act as Ind, UE Funct Exercise/Act Treatment Duration: Jul 20, 2018 Frequency: At least 5 of 7 days/Wk (IRF) Estimated Hrs Per Day: 1.5 hours per day Agreement: Yes Rehab Potential: Fair Time/GCodes Start Time: 09:00 Stop Time: 10:00 Total Time Billed (hr/min): 60 Billed Treatment Time 1 visit- ADL 4 (60 min) VIPUL KIRK Jun 23, 2018 10:45
--- NOTE | 2018-06-23 14:46 | Therapy Group Daily Note ---
Therapy Daily Group Note Patient Education Topic Other List Below (ARU description/expectations, nutrition, neuropathy, oral health) Exercises UE Exercise Other/Notes Pt transported via w/c to OT/PT group. Group consisted of introductions (name, place, worst food eaten), socialization, ARU description/expectation, education on nutrition/oral health/neuropathy and fine motor activity. Pt introduced self appropriately and actively listened to peers. Pt quiet throughout group though attentive with educational topics. Pt c/o back hurting, repositioned to ease pain. Pt focused on each speaker and nodded affirmatives or negations when asked questions. Pt unable to participate in fine motor activities due to medical issues. Pt left early from group due to decreased activity tolerance. After group, pt transported via w/c to room and laid down in bed with call light/phone in reach. All needs met. Start Time: 13:00 Stop Time: 14:00 Total Billed Treatment Time: 60 Total Billed Treatment 1-GRP VIPUL KIRK Jun 23, 2018 14:45
--- NOTE | 2018-06-23 15:04 | ST Dysphagia Evaluation ---
Speech Evaluation-General Medical Diagnosis disuse myopathy Onset Date: Jun 22, 2018 Therapy Diagnosis Therapy Diagnosis: Dysphagia Precautions Precautions/Isolations: Aspiration, Fall Prevention, Standard Precautions, Pressure Ulcer Referral Referring Physician: Dr. Craft Reason for Referral: Evaluation/Treatment Medical History Pertinent Medical History: Atrial Fib, CAD, DM, HTN, [place], Renal Insufficiency Reviewed History: Yes Social History Current Living Status: Spouse Speech PLF/Current-Dysphagia Prior Level of Function Independent Subjective Pt in bed. Cooperative. Cognitive Status Patient Orientation: Person, Place, Time Oral Motor Skills Dentition: Natural Ability to Follow Directions: Good Oral Expression Ability: No Impairment Tracheostomy Type: Plugged Face Facial Symmetry: Symmetrical Oral-Facial Assessment Oral-Facial Dentition: Normal Labial Seal Description: Normal Lingual Protrusion: Normal Lingual ROM: Normal Lingual Strength: Normal Can Clear Throat Volitionally: Yes Dysphagia Evaluation Consistencies Presented: Thin Liquid, Pureed appeared WFL Pharyngeal Phase: Reduced Laryngeal Elevation (due to trach) Funct. Velo/Pharyngeal Symptom: Cough After Swallow (for applesauce) Dietary Recommendations: NPO Liquid Recommendations: ice chips Continued NPO except for ice chips. Speech Short Term Goals Short Term Goals Short Term Goals 1. Obtain information from [place] to facilitate goal planning for pt. 2. Trials by Speech only for safety of food texture. 3. Pt will complete dysphagia exercises with min assist. Time Frame-ST-2 weeks Speech Nursing Home Goals Solution Analyst Goals Pt will tolerate least restrictive diet without signs/symptoms of aspiration. Time Frame: 3-4 weeks Speech-Plan Patient/Family Goals Patient/Family Goals: to eat and drink again. Treatment Plan Speech Therapy Treatment Plan: Modify Plan, See Comments (skilled ST to address dysphagia issues) Dysphagia tx indicated. Treatment Duration: Jun 23, 2018 Frequency: 5 times per week Estimated Hrs Per Day: .5 hour per day Rehab Potential: Fair Pt/Family Agrees to Plan: Yes Safety Risks/Education Teaching Recipient: Patient Teaching Methods: Discussion Response to Teaching: Verbalize Understanding Time Speech Therapy Time In: 11:30 Speech Therapy Time Out: 12:00 Total Billed Time: 30 Billed Treatment Time 1COY RANDY ST Jun 23, 2018 15:04
--- NOTE | 2018-06-23 15:53 | Diagnostic Imaging Report ---
INDICATION: Shortness of breath. No prior examinations are available for comparison. FINDINGS: The heart size is normal. There has been a previous median sternotomy. There is a right upper extremity PICC line which has its tip at the cavoatrial junction. There is a left internal jugular hemodialysis catheter in place with its tip at the cavoatrial junction. Tracheostomy tube is in satisfactory position. There is no pleural effusion, pneumothorax, or pneumonia. IMPRESSION: No acute cardiopulmonary abnormality. Dictated by: Dictated on workstation # [id number]
[2018-06-23 16:45] VITALS: BP 128/75
[2018-06-23] MEDS: LACTOBACILLUS ACIDOPHILUS (PROBIOTIC) CAPSULE PEG SCH (20:13)
[2018-06-23] MEDS: ZOLPIDEM 5 MG (AMBIEN) TAB PEG SCH (20:13)
[2018-06-23] MEDS: MELATONIN 3 MG TABLET PEG SCH (20:13)
[2018-06-23] MEDS: POLYETHYLENE GLYCOL 17 GM (MIRALAX) PACK PEG SCH (20:16)
[2018-06-24] MEDS: NYSTATIN ORAL SUSP 5 ML UDC PO SCH ×5 (00:08→23:51)
[2018-06-24] MEDS: inSUlin ASPART (NovoLOG) 1 UNIT/0.01 ML (CHARGE PER UNIT) SC SCH ×5 (00:08→23:44)
[2018-06-24] MEDS: SUCRALFATE 1 GM (CARAFATE) TAB PEG SCH ×5 (00:08→23:51)
[2018-06-24] MEDS: predniSONE 10 MG TAB PEG SCH (04:52)
[2018-06-24] MEDS: ONDANSETRON 4 MG/2 ML (SDV) Z0FRAN IVP PRN (05:17)
[2018-06-24 06:09] VITALS: BP 132/78
[2018-06-24 06:44] LABS: CALCIUM 11.5 MG/DL (8.5-10.1); CREATININE SERUM 4.16 MG/DL (0.60-1.30); POTASSIUM 3.6 MMOL/L (3.6-5.0)
--- NOTE | 2018-06-24 07:49 | PM & R (SOAP) Progress Note ---
Subjective This was a face to face visit with the patient. Date Seen by Provider: Jun 24, 2018 Time Seen by Provider: 07:20 Subjective/Events-last exam Patient was seen in his room this AM.Patient Min assist for transfers RN reports nausea refractory to Zofran Promethazine ordered Appreciate DR Rain note ENT has seen today DR Morales Trach to remain in. Review of Systems Gastrointestinal: Nausea, Vomiting Objective Physician Exam Last Set of Vital Signs Vital Signs Date Time Temp Pulse Resp B/P (MAP) Pulse Ox O2 Delivery O2 Flow Rate FiO2 06/24/18 06:09 97.9 79 20 132/78 (96) 100 Room Air 06/24/18 01:40 6.00 21 Capillary Refill : Less Than 3 Seconds I&O Intake and Output 06/24/18 00:00 Intake Total 1635 ml Output Total 950 ml Balance 685 ml Intake Oral 0 ml Tube Feeding 1455 ml Other 180 ml Output Urine Total 950 ml # Bowel Movements 2 General: Alert, Oriented X3, Cooperative, No Acute Distress, Other (Afebrile P =89 RR 16 BP 106/76 02 sats 100%% RA) HEENT: PERRLA, EOMI, Mucous Memb Moist/[place] Neck: Supple, No JVD, Other (Trach functioning) Lungs: Clear to Auscultation Heart: Regular Rate Abdomen: Normal Bowel Sounds, Soft, No Tenderness, Other (Peg tube in place HD catheter in left anterior chest) Extremities: No Edema Skin: Other (Stage 4 pressure sore sacrum) Neuro: Other (Generalized weakness Lower limbs >Upper and RT lower limb >left) Psych/Mental Status: Mental Status NL Results Lab Data Laboratory Tests 06/22/18 11:34: Glucometer 91 06/22/18 18:49: Glucometer 153H 06/23/18 00:34: Glucometer 136H 06/23/18 06:29: Glucometer 101 06/23/18 08:50: Blood Gas Puncture Site RIGHT RADIAL, Blood Gas Patient Temperature 95.5, Arterial Blood pH 7.42, Arterial Blood Partial Pressure CO2 43, Arterial Blood Partial Pressure O2 79, Arterial Blood HCO3 28H, Arterial Blood Total CO2 29.1, Arterial Blood Oxygen Saturation 98, Arterial Blood Base Excess 3.1H, González Test YES-POS, Blood Gas Ventilator Setting NO, Blood Gas Inspired Oxygen ROOM AIR 06/23/18 09:15: White Blood Count 5.8, Red Blood Count 3.08L, Hemoglobin 9.8L, Hematocrit 29L, Mean Corpuscular Volume 93, Mean Corpuscular Hemoglobin 32, Mean Corpuscular Hemoglobin Concent 34, Red Cell Distribution Width 15.9H, Platelet Count 88L, Mean Platelet Volume 10.3, Neutrophils (%) (Auto) 77H, Lymphocytes (%) (Auto) 12 , Monocytes (%) (Auto) 9, Eosinophils (%) (Auto) 2, Basophils (%) (Auto) 0, Neutrophils # (Auto) 4.5, Lymphocytes # (Auto) 0.7L, Monocytes # (Auto) 0.5, Eosinophils # (Auto) 0.1, Basophils # (Auto) 0.0, B-Type Natriuretic Peptide 323.8H 06/23/18 11:25: Glucometer 273H 06/23/18 18:03: Glucometer 144H 06/23/18 23:54: Glucometer 165H 06/24/18 06:06: Glucometer 103 06/24/18 06:10: Sodium Level 135, Potassium Level 3.6, Chloride Level 97L, Carbon Dioxide Level 25, Anion Gap 13, Blood Urea Nitrogen 91H, Creatinine 4.16H, Estimat Glomerular Filtration Rate 15, BUN/Creatinine Ratio 22, Glucose Level 103, Calcium Level 11.5H Assessment/Plan Assessment and Plan 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
[2018-06-24] MEDS: PANTOPRAZOLE 40 MG (PROTONIX) VIAL IV SCH ×2 (08:29→19:52)
[2018-06-24] MEDS: buPROPion 100 MG (WELLBUTRIN) TAB PEG SCH ×2 (08:30→19:52)
[2018-06-24] MEDS: LACTOBACILLUS ACIDOPHILUS (PROBIOTIC) CAPSULE PEG SCH ×2 (08:30→19:52)
[2018-06-24] MEDS: CARVEDILOL 12.5 MG (COREG) TABLET PEG SCH ×2 (08:30→19:52)
[2018-06-24] MEDS: FOLIC ACID 1 MG TAB PEG SCH (08:30)
[2018-06-24] MEDS: inSUlin DETERMIR 1 UNIT/0.01 ML (LEVEMIR) CHARGE PER UNIT SQ SCH (08:30)
--- NOTE | 2018-06-24 08:50 | Occupational Ther Daily Note ---
OT Current Status-Daily Note Subjective Pt alert, lying in bed. Pt agrees to therapy. C/o nausea and then vomited. Notified nrsg. Pt incontinent of bowel. Mental Status/Objective Patient Orientation: Person, Place, Time, Situation Functional [place] Measure 0=Not Assessed/NA 4=Minimal Assistance 1=Total Assistance 5=Supervision or Setup 2=Maximal Assistance 6=Modified [place] 3=Moderate Assistance 7=Complete [place] ADL-Treatment Pt agreed to sponge bath. Prior to pt getting out of bed, pt was incontinent. Supine to sitting EOB SBA using HOB slightly raised and bedrails. [place] [facility] [place] with [place]BA. Pt able to sponge bathe all areas except feet and buttocks. Due to pt's bowel incontinence donned hospital gown instead of clothing at this time. After therapy, pt lying in bed with call light/phone in reach. All needs met in room. Nrsg notified of nausea/vomiting, BM, need to apply dressing to coccyx area. Functional [place] Measure 0=Not Assessed/NA 4=Minimal Assistance 1=Total Assistance 5=Supervision or Setup 2=Maximal Assistance 6=Modified [place] 3=Moderate Assistance 7=Complete IndependenceIRFPAI Quality Coding Scale 6 Independent with activity with or without an assistive device 5 Patient requires set up or clean up by helper. Patient completes activity by themselves 4 Supervision or touching assist (CGA). [place] provide cues , steadying assist 3 The helper provides less than half the effort to complete the activity 2 The helper provides more than half the effort to complete the activity 1 Dependent. The helper does all the effort to complete an activity 7 Patient refused to complete or attempt activity 9 The patient did not perform the activity before the current illness or injury 88 Not attempted due to Medical conditions or safety concerns Bathing (FIM): 3 Toileting (FIM): 1 Toileting Hygiene (QC): 1 Toilet/Commode Transfer (FIM): 5 Toilet Transfer (QC): 5 OT Short Term Goals Short Term Goals Time Frame: Jul 06, 2018 Grooming(FIM): 5 Bathing(FIM): 4 Upper Body Dressing(FIM): 4 Lower Body Dressing(FIM): 4 Toileting(FIM): 4 Transfers (B,C,W/C) (FIM): 5 Toilet/Commode Transfer(FIM): 5 Shower Transfer(FIM): 4 Additional Short Term Goals: 1-Demonstrate ADL Tasks, 2-Verbalize Understanding , 3-ImproveStrength/Camryn 1=Demonstrate adherence to instructed precautions during ADL tasks. 2=Patient will verbalize/demonstrate understanding of assistive devices/ modifications for ADL. 3=Patient will improve strength/tolerance for activity to enable patient to perform ADL's. OT Charge Auditor Goals Charge Auditor Goals Time Frame: Jul 20, 2018 Groomin Oral Hygiene (QC): 4 Bathing(FIM): 5 Shower/Bathe Self (QC): 4 Upper Body Dressing(FIM): 5 Upper Body Dressing (QC): 4 Lower Body Dressing(FIM): 5 Lower Body Dressing (QC): 4 On/Off Footwear (QC): 4 Toileting(FIM): 5 Toileting Hygiene (QC): 4 Transfers (B,C,W/C) (FIM): 6 Toilet/Commode Transfer(FIM): 6 Toilet/Commode Transfer (QC): 6 Shower Transfer(FIM): 5 Additional Goals: 1-Demonstrate ADL Tasks, 2-Verbalize Understanding, 3- ImproveStrength/Camryn 1=Demonstrate adherence to instructed precautions during ADL tasks. 2=Patient will verbalize/demonstrate understanding of assistive devices/ modifications for ADL. 3=Patient will improve strength/tolerance for activity to enable patient to perform ADL's. OT Education/Plan Discharge Recommendations Plan/Recommendations: Continue POC Equpiment Recommendations-D/C: Extended Shower Sprayer Treatment Plan/Plan of Care Patient would benefit from OT for education, treatment and training to promote independence in ADL's, mobility, safety and/or upper extremity function for ADL' s. Plan of Care: ADL Retraining, Functional Mobility, Group Exercise/Act as Ind, UE Funct Exercise/Act Treatment Duration: Jul 20, 2018 Frequency: At least 5 of 7 days/Wk (IRF) Estimated Hrs Per Day: 1.5 hours per day Agreement: Yes Rehab Potential: Fair Time/GCodes Start Time: 06:52 Stop Time: 07:30 Total Time Billed (hr/min): 38 Billed Treatment Time 1 visit-ADL 3 (38 min) VIPUL KIRK Jun 24, 2018 08:50
--- NOTE | 2018-06-24 08:51 | Physical Therapy Daily Note ---
PT Daily Note-Current Subjective Pt. in bed. States he slept well, no pain. Agrees to Ex, wants to lay in bed until getting ready to go to dialysis. States dialysis wears him out Pain Numeric Pain Scale: 0-No Pain Mental Status Patient Orientation: Person, Place, Time, Situation Attachments: PEG Tube, IV Transfers Functional [place] Measure 0=Not Assessed/NA 4=Minimal Assistance 1=Total Assistance 5=Supervision or Setup 2=Maximal Assistance 6=Modified [place] 3=Moderate Assistance 7=Complete IndependenceIRFPAI Quality Coding Scale 6 Independent with activity with or without an assistive device 5 Patient requires set up or clean up by helper. Patient completes activity by themselves 4 Supervision or touching assist (CGA). [place] provide cues , steadying assist 3 The helper provides less than half the effort to complete the activity 2 The helper provides more than half the effort to complete the activity 1 Dependent. The helper does all the effort to complete an activity 7 Patient refused to complete or attempt activity 9 The patient did not perform the activity before the current illness or injury 88 Not attempted due to Medical conditions or safety concerns Rollin Weight Bearing Right Lower Extremity: Right Full Weight Bearing Left Lower Extremity: Left Full Weight Bearing Exercises Supine Ex: Bridging, Ankle pumps (bilat HC stretches 3x20s), Quad Set, Rolling , Glut sets, Heel Slides, Short Arc Quads, Scooting, Straight leg raise, Hip abd /add Supine Reps: 12 Assessment Current Status: Good Progress PT Short Term Goals Short Term Goals Time Frame: Jun 29, 2018 Transfers (B,C,W/C) (FIM): 5 Gait (FIM): 5 Distance (FIM): 3=150 ft Gait Distance Comment: 200' Gait Level of Assist: 5 Gait Assistive Device: FWW Wheelchair Distance: SEE PT GOALS PT Banking Consultant Goals Retirement Goals PT Banking Consultant Goals Time Frame: Jul 13, 2018 Transfers (B,C,W/C) (FIM): 6 Sit to Lying (QC): 6 Lying-Sitting on Side/Bed(QC): 6 Sit to Stand (QC): 6 Rollin Roll Left to Right (QC): 6 Chair/Dhd-mt-Bryvz Xfer(QC): 6 Car Transfer (QC): 6 Does the Patient Walk: Yes Gait (FIM): 6 Distance: SEE PT GOALS Walk 10 feet (QC): 6 Walk 10ft-Uneven Surface(QC): 6 Walk 50ft with 2 Turns (QC): 6 Walk 150 ft (QC): 6 Gait Level of Assist: 6 Gait Assistive Device: FWW Stairs (FIM): 5 (household exception) # of Steps: 4 1 Step (curb) (QC): 6 4 Steps (QC): 6 12 Steps (QC): 0 Picking up an Object (QC): 4 PT Plan Treatment/Plan Treatment Plan: Continue Plan of Care Treatment Plan: Bed Mobility, Concurrent Therapy, Education, Functional Activity Camryn, Functional Strength, Group Therapy, Gait, Safety, Therapeutic Exercise, Transfers Treatment Duration: Jul 13, 2018 Frequency: Modified Program (IRF) (due to dialysis) Estimated Hrs Per Day: 1.5 hours per day Patient and/or Family Agrees t: Yes Safety Risks/Education Patient Education: Correct Positioning, Disease Process, Safety Issues Teaching Recipient: Patient Teaching Methods: Demonstration, Discussion Response to Teaching: Verbalize Understanding, Return Demonstration, Reinforcement Needed Time/GCodes Time In: 750 Time Out: 810 Total Billed Treatment Time: 20 Total Billed Treatment 1,EX20m G Codes Necessary: DARYL Cain SIGNAL INTELLIGENCE/ELECTRONIC WARFARE Jun 24, 2018 08:50
--- NOTE | 2018-06-24 14:04 | CONSULTATION REPORT ---
DATE OF SERVICE: ENT CONSULTATION ROOM NUMBER: [id number] REFERRING PHYSICIAN: Celestino Rosen DO. REASON FOR CONSULTATION: Upper airway evaluation. HISTORY OF PRESENT ILLNESS: The patient is currently in acute rehab for strengthening. He has a long complicated history. He had respiratory failure and subsequently had a tracheostomy done. He was at [facility] in [place] for quite some time. He has been here in [facility] for 48 to 72 hours. He has an indwelling metal #[address] He did have it plugged, but according to him, he lost the plug yesterday. There is a question of a history of a bilateral vocal cord paralysis. He would like to have the trach removed if possible. PHYSICAL EXAMINATOIN: ENT: A directed physical exam was done. The nose was decongested with 0.25% Nir-Synephrine and 4% Xylocaine and nasopharynx was examined with a flexible scope. On evaluation, there was no mass or lesion seen in the nasopharynx. Hypopharynx and larynx were likewise examined. On evaluation of the larynx, he has minimal airway present. Both vocal cords are paralyzed in the paramedian position. There is no marked swelling or abnormal mass seen. He has a 2-mm airway at the level of the cords at best. NECK: The #6 metal Todd, Nelsyjyoti is in place. There was no evidence of infection of the trach site. IMPRESSION: 1. Upper airway obstruction, bilateral vocal cord paralysis. 2. Indwelling #6 metal Todd. RECOMMENDATIONS: Findings were discussed with the patient. Unfortunately, he is not going to be able to be decannulated as he has minimal to no airway secondary to the bilateral vocal cord paralysis. I will need to see him back in the office in approximately 3 months to recheck the cords and see if they are regaining movement. Until that time, he needs to maintain his trach. I believe I do have another plug for a 6 metal Todd in the office; and if so, we will make arrangements for it be picked up so he could use it and that way he can have an easier time speaking. Job ID: [id number] DocumentID: [id number] Dictated Date: 06/24/2018 12:21:20 Laboratory Chief Date: 06/24/2018 14:02:57 Dictated By: DARIO PUCKETT MD
[2018-06-24] MEDS: ENOXAPARIN 40 MG/0.4 ML (LOVENOX) SYR SC SCH (15:34)
[2018-06-24] MEDS: ALPRAZolam 0.5 MG (XANAX) TAB PEG PRN ×2 (16:13→23:51)
[2018-06-24 18:32] VITALS: BP 126/74
[2018-06-24] MEDS: POLYETHYLENE GLYCOL 17 GM (MIRALAX) PACK PEG SCH (19:25)
[2018-06-24] MEDS: MELATONIN 3 MG TABLET PEG SCH (19:52)
[2018-06-24] MEDS: ZOLPIDEM 5 MG (AMBIEN) TAB PEG SCH (19:52)
[2018-06-25] MEDS: SUCRALFATE 1 GM (CARAFATE) TAB PEG SCH ×4 (05:46→23:50)
[2018-06-25] MEDS: inSUlin ASPART (NovoLOG) 1 UNIT/0.01 ML (CHARGE PER UNIT) SC SCH ×4 (05:47→23:50)
[2018-06-25] MEDS: predniSONE 10 MG TAB PEG SCH (05:47)
[2018-06-25] MEDS: NYSTATIN ORAL SUSP 5 ML UDC PO SCH ×4 (05:48→23:50)
[2018-06-25 06:00] VITALS: BP 111/70
[2018-06-25 06:37] LABS: CALCIUM 10.1 MG/DL (8.5-10.1); CREATININE SERUM 2.76 MG/DL (0.60-1.30); POTASSIUM 3.2 MMOL/L (3.6-5.0)
[2018-06-25] MEDS ORDERED: BENEFIBER (FROM DIETARY) DOCUMENTATION PURPOSE ONLY PO SCH (09:00)
[2018-06-25] MEDS: PANTOPRAZOLE 40 MG (PROTONIX) VIAL IV SCH ×2 (09:10→21:22)
[2018-06-25] MEDS: LACTOBACILLUS ACIDOPHILUS (PROBIOTIC) CAPSULE PEG SCH ×2 (09:10→21:23)
[2018-06-25] MEDS: buPROPion 100 MG (WELLBUTRIN) TAB PEG SCH ×2 (09:10→21:23)
[2018-06-25] MEDS: inSUlin DETERMIR 1 UNIT/0.01 ML (LEVEMIR) CHARGE PER UNIT SQ SCH (09:10)
[2018-06-25] MEDS: FOLIC ACID 1 MG TAB PEG SCH (09:10)
[2018-06-25] MEDS: CARVEDILOL 12.5 MG (COREG) TABLET PEG SCH ×2 (09:10→21:23)
[2018-06-25] MEDS ORDERED: SOTALOL 80 MG (BETAPACE) TAB ONE (09:53)
[2018-06-25] MEDS: SCOPOLAMINE 1.5 MG (TRANSDERM-SCOP) PATCH TOP SCH (11:19)
[2018-06-25] MEDS: ENOXAPARIN 40 MG/0.4 ML (LOVENOX) SYR SC SCH (11:20)
[2018-06-25] MEDS: ALPRAZolam 0.5 MG (XANAX) TAB PEG PRN ×2 (11:50→23:50)
[2018-06-25 17:55] VITALS: BP 124/80
[2018-06-25] MEDS: ZOLPIDEM 5 MG (AMBIEN) TAB PEG SCH (21:23)
[2018-06-25] MEDS: POLYETHYLENE GLYCOL 17 GM (MIRALAX) PACK PEG SCH (21:23)
[2018-06-25] MEDS: MELATONIN 3 MG TABLET PEG SCH (21:23)
[2018-06-25] MEDS: ONDANSETRON 4 MG/2 ML (SDV) Z0FRAN IVP PRN (22:01)
[2018-06-26 04:44] LABS: CALCIUM 10.3 MG/DL (8.5-10.1); CREATININE SERUM 3.41 MG/DL (0.60-1.30); POTASSIUM 3.6 MMOL/L (3.6-5.0)
[2018-06-26] MEDS: inSUlin ASPART (NovoLOG) 1 UNIT/0.01 ML (CHARGE PER UNIT) SC SCH ×3 (05:02→18:18)
[2018-06-26 05:08] VITALS: BP 134/63
[2018-06-26] MEDS: SUCRALFATE 1 GM (CARAFATE) TAB PEG SCH ×3 (06:02→17:45)
[2018-06-26] MEDS: predniSONE 10 MG TAB PEG SCH (06:02)
[2018-06-26] MEDS: NYSTATIN ORAL SUSP 5 ML UDC PO SCH ×3 (06:02→17:45)
--- NOTE | 2018-06-26 08:56 | Physical Therapy Daily Note ---
PT Daily Note-Current Subjective pt in bed pre tx, agrees to PT, pain /10 today in sacrum area. Appearance pt in bed post tx, w/ phone, call light, tray, all needs met Mental Status Patient Orientation: Person, Place, Time Attachments: PEG Tube Transfers Functional [place] Measure 0=Not Assessed/NA 4=Minimal Assistance 1=Total Assistance 5=Supervision or Setup 2=Maximal Assistance 6=Modified [place] 3=Moderate Assistance 7=Complete IndependenceIRFPAI Quality Coding Scale 6 Independent with activity with or without an assistive device 5 Patient requires set up or clean up by helper. Patient completes activity by themselves 4 Supervision or touching assist (CGA). [place] provide cues , steadying assist 3 The helper provides less than half the effort to complete the activity 2 The helper provides more than half the effort to complete the activity 1 Dependent. The helper does all the effort to complete an activity 7 Patient refused to complete or attempt activity 9 The patient did not perform the activity before the current illness or injury 88 Not attempted due to Medical conditions or safety concerns Transfers (B, C, W/C) (FIM): 4 Rollin Supine to/from Sit: 5 Sit to/from Stand: 4 supine<->sit SBA, sit <->stand CGA Weight Bearing Right Lower Extremity: Right Full Weight Bearing Left Lower Extremity: Left Full Weight Bearing Gait Training Does the Patient Walk?: Yes Gait (FIM): 4 Distance: 150'x2 Gait Level of Assist: 4 Gait Persons Needed: 1 Gait Assistive Device: FWW Pt ambulates to/from gym using FWW w/ CGA, gait is slow but steady, pt demonstrates R foot drop and flexed knees, improved stability w/ turns and decreased scissoring Exercises Supine Ex: Bridging, Heel Slides Supine Reps: 20 Seated Therapy Exercises: Sit to stand (20 reps), Long arc quads, Hip flexion Seated Reps: 40 NuStep Minutes: 10 NuStep Workload: 3 Treatments gait training, functional strengthening, endurance training Assessment Current Status: Fair Progress improved gait w/ increased stability during turns, decreased scissoring, and increased distance/endurance, improved awareness of lines/tubes during transfers PT Short Term Goals Short Term Goals Time Frame: Jun 29, 2018 Transfers (B,C,W/C) (FIM): 5 Gait (FIM): 5 Distance (FIM): 3=150 ft Gait Distance Comment: 200' Gait Level of Assist: 5 Gait Assistive Device: FWW Wheelchair Distance: SEE PT GOALS PT Group Home Goals Group Home Goals PT Group Home Goals Time Frame: Jul 13, 2018 Transfers (B,C,W/C) (FIM): 6 Sit to Lying (QC): 6 Lying-Sitting on Side/Bed(QC): 6 Sit to Stand (QC): 6 Rollin Roll Left to Right (QC): 6 Chair/Uzi-pe-Jziyh Xfer(QC): 6 Car Transfer (QC): 6 Does the Patient Walk: Yes Gait (FIM): 6 Distance: SEE PT GOALS Walk 10 feet (QC): 6 Walk 10ft-Uneven Surface(QC): 6 Walk 50ft with 2 Turns (QC): 6 Walk 150 ft (QC): 6 Gait Level of Assist: 6 Gait Assistive Device: FWW Stairs (FIM): 5 (household exception) # of Steps: 4 1 Step (curb) (QC): 6 4 Steps (QC): 6 12 Steps (QC): 0 Picking up an Object (QC): 4 PT Plan Problem List Problem List: Activity Tolerance, Functional Strength, Safety, Balance, Gait, Transfer, Bed Mobility Treatment/Plan Treatment Plan: Continue Plan of Care Treatment Plan: Bed Mobility, Concurrent Therapy, Education, Functional Activity Camryn, Functional Strength, Group Therapy, Gait, Safety, Therapeutic Exercise, Transfers Treatment Duration: Jul 13, 2018 Frequency: Modified Program (IRF) (due to dialysis) Estimated Hrs Per Day: 1.5 hours per day Patient and/or Family Agrees t: Yes Safety Risks/Education Patient Education: Gait Training, Transfer Techniques, Correct Positioning, Safety Issues Teaching Recipient: Patient Teaching Methods: Demonstration, Discussion Response to Teaching: Reinforcement Needed Time/GCodes Time In: 0800 Time Out: 0900 Total Billed Treatment Time: 60 Total Billed Treatment 1 visit GT 25' EX 35' DONNELL MA PT Jun 26, 2018 08:56
[2018-06-26] MEDS: LACTOBACILLUS ACIDOPHILUS (PROBIOTIC) CAPSULE PEG SCH ×2 (09:01→20:37)
[2018-06-26] MEDS: PANTOPRAZOLE 40 MG (PROTONIX) VIAL IV SCH ×2 (09:01→20:36)
[2018-06-26] MEDS: FOLIC ACID 1 MG TAB PEG SCH (09:01)
[2018-06-26] MEDS: CARVEDILOL 12.5 MG (COREG) TABLET PEG SCH ×2 (09:01→20:37)
[2018-06-26] MEDS: buPROPion 100 MG (WELLBUTRIN) TAB PEG SCH ×2 (09:01→20:37)
--- NOTE | 2018-06-26 10:05 | Occupational Ther Daily Note ---
OT Current Status-Daily Note Subjective Pt alert, lying in bed. Nsrg in room. No c/o pain. Pt agrees to therapy and wanting to shower. Mental Status/Objective Patient Orientation: Person, Place, Time, Situation Functional [place] Measure 0=Not Assessed/NA 4=Minimal Assistance 1=Total Assistance 5=Supervision or Setup 2=Maximal Assistance 6=Modified [place] 3=Moderate Assistance 7=Complete [place] ADL-Treatment Functional [place] Measure 0=Not Assessed/NA 4=Minimal Assistance 1=Total Assistance 5=Supervision or Setup 2=Maximal Assistance 6=Modified [place] 3=Moderate Assistance 7=Complete IndependenceIRFPAI Quality Coding Scale 6 Independent with activity with or without an assistive device 5 Patient requires set up or clean up by helper. Patient completes activity by themselves 4 Supervision or touching assist (CGA). [place] provide cues , steadying assist 3 The helper provides less than half the effort to complete the activity 2 The helper provides more than half the effort to complete the activity 1 Dependent. The helper does all the effort to complete an activity 7 Patient refused to complete or attempt activity 9 The patient did not perform the activity before the current illness or injury 88 Not attempted due to Medical conditions or safety concerns Grooming (FIM): 5 (SBA, pt able to complete at sitting position in front of sink. ) Oral Hygiene (QC): 5 Bathing (FIM): 5 (Pt able to complete using hand held shower, shower bench long handled sponge and grabbars for stability, SBA. ) Bathing Location: L Arm, R Arm, L Upper Leg, R Upper Leg, L Lower Leg ( including foot), R Lower Leg (including foot), Chest, Abdomen, Buttocks, Perineal Area Shower/Bathe Self (QC): 4 Upper Body (FIM): 5 (Set up, pt able to complete by self at sitting position. ) Upper Body Dressing (QC): 5 Lower Body Dressing (FIM): 3 (Education for lower body dressing equipment. Pt demonstrated understanding of equipment needing minimal verbal cue on technique. CGA for stability while standing to hike pants over hips. Assist with sock aid due to pt's inability to plantar flexion and decreased strength. ) Lower Body Dressing (QC): 3 On/Off Footwear (QC): 2 Transfers (B, C, W/C) (FIM): 4 (Pt able to go from supine to EOB by self. CGA from sit to stand using FWW and arm rail for stability. ) Shower Transfer(FIM): 4 (CGA, pt able to complete using grabbars, FWW, and shower bench for stability. ) After therapy, pt lying in bed. Nsrg in room doing treatment with pt. Call light /phone within reach. All needs met in room. Education OT Patient Education: Use of adapted equipment Teaching Recipient: Patient Teaching Methods: Demonstration, Discussion Response to Teaching: Verbalize Understanding, Return Demonstration OT Short Term Goals Short Term Goals Time Frame: Jul 06, 2018 Grooming(FIM): 5 Bathing(FIM): 4 Upper Body Dressing(FIM): 4 Lower Body Dressing(FIM): 4 Toileting(FIM): 4 Transfers (B,C,W/C) (FIM): 5 Toilet/Commode Transfer(FIM): 5 Shower Transfer(FIM): 4 Additional Short Term Goals: 1-Demonstrate ADL Tasks, 2-Verbalize Understanding , 3-ImproveStrength/Camryn 1=Demonstrate adherence to instructed precautions during ADL tasks. 2=Patient will verbalize/demonstrate understanding of assistive devices/ modifications for ADL. 3=Patient will improve strength/tolerance for activity to enable patient to perform ADL's. OT Gis Engineer Goals Mcfp Goals Time Frame: Jul 20, 2018 Groomin Oral Hygiene (QC): 4 Bathing(FIM): 5 Shower/Bathe Self (QC): 4 Upper Body Dressing(FIM): 5 Upper Body Dressing (QC): 4 Lower Body Dressing(FIM): 5 Lower Body Dressing (QC): 4 On/Off Footwear (QC): 4 Toileting(FIM): 5 Toileting Hygiene (QC): 4 Transfers (B,C,W/C) (FIM): 6 Toilet/Commode Transfer(FIM): 6 Toilet/Commode Transfer (QC): 6 Shower Transfer(FIM): 5 Additional Goals: 1-Demonstrate ADL Tasks, 2-Verbalize Understanding, 3- ImproveStrength/Camryn 1=Demonstrate adherence to instructed precautions during ADL tasks. 2=Patient will verbalize/demonstrate understanding of assistive devices/ modifications for ADL. 3=Patient will improve strength/tolerance for activity to enable patient to perform ADL's. OT Education/Plan Discharge Recommendations Plan/Recommendations: Continue POC Treatment Plan/Plan of Care Patient would benefit from OT for education, treatment and training to promote independence in ADL's, mobility, safety and/or upper extremity function for ADL' s. Plan of Care: ADL Retraining, Functional Mobility, Group Exercise/Act as Ind, UE Funct Exercise/Act Treatment Duration: Jul 20, 2018 Frequency: At least 5 of 7 days/Wk (IRF) Estimated Hrs Per Day: 1.5 hours per day Agreement: Yes Rehab Potential: Fair Time/GCodes Start Time: 09:00 Stop Time: 10:00 Total Time Billed (hr/min): 60 Billed Treatment Time 1 visit- ADL 4 (60 min) VIPUL KIRK Jun 26, 2018 10:05
[2018-06-26] MEDS: ALPRAZolam 0.5 MG (XANAX) TAB PEG PRN ×2 (10:38→20:37)
--- NOTE | 2018-06-26 10:45 | Speech Therapy Daily Note ---
Speech Daily Progress Note Subjective Date Seen by Provider: Jun 26, 2018 Time Seen by Provider: 10:00 Pt in bed. Cooperative. Pain Numeric Pain Scale: 0-No Pain Objective Spoke with [employer] MAKER at [facility] today. She filled in this [employer] MAKER on what she had been working on with pt there at that facility. She recommended another MBS to determine swallow safety and vocal fold function. Provided pt with handout of dysphagia exercises. Reviewed with pt. Assessment Assessment Current Status: Fair Progress Treatment Plan Continue Plan of Care Communication Comprehension: 6 Expression: 7 Social Cognition Social Interaction: 7 Problem Solvin Memory: 7 Speech Short Term Goals Short Term Goals Short Term Goals 1. Obtain information from [facility] to facilitate goal planning for pt. 2. Trials by Speech only for safety of food texture. 3. Pt will complete dysphagia exercises with min assist. Time Frame-ST-2 weeks Speech Clinical Counselor Goals Clinical Counselor Goals Pt will tolerate least restrictive diet without signs/symptoms of aspiration. Time Frame: 3-4 weeks Speech-Plan Patient/Family Goals Patient/Family Goals: to be able to eat and drink Treatment Plan Speech Therapy Treatment Plan: Continue Plan of Care pt cooperative. Treatment Duration: Jun 23, 2018 Frequency: 5 times per week Estimated Hrs Per Day: .5 hour per day Rehab Potential: Fair Pt/Family Agrees to Plan: Yes Safety Risks/Education Teaching Recipient: Patient Teaching Methods: Demonstration, Handout Response to Teaching: Return Demonstration Time Speech Therapy Time In: 10:00 Speech Therapy Time Out: 10:35 Total Billed Time: 35 Billed Treatment Time 1, DYST No ABELARDOKEISHAErin CALHOUN Jun 26, 2018 10:45
[2018-06-26] MEDS ORDERED: ENOXAPARIN 30 MG/0.3 ML (LOVENOX) SYR SC SCH (12:00)
[2018-06-26] MEDS: DARBEPOETIN 100 MCG/ML (ARANESP) 1 ML VIAL SC SCH (12:50)
[2018-06-26] MEDS: ONDANSETRON 4 MG/2 ML (SDV) Z0FRAN IVP PRN (13:57)
--- NOTE | 2018-06-26 14:17 | Occupational Ther Daily Note ---
OT Current Status-Daily Note Subjective Took over care from PT in therapy gym. Pt agrees to therapy. No c/o pain. Mental Status/Objective Patient Orientation: Person, Place, Time, Situation Functional [place] Measure 0=Not Assessed/NA 4=Minimal Assistance 1=Total Assistance 5=Supervision or Setup 2=Maximal Assistance 6=Modified [place] 3=Moderate Assistance 7=Complete [place] ADL-Treatment Functional [place] Measure 0=Not Assessed/NA 4=Minimal Assistance 1=Total Assistance 5=Supervision or Setup 2=Maximal Assistance 6=Modified [place] 3=Moderate Assistance 7=Complete IndependenceIRFPAI Quality Coding Scale 6 Independent with activity with or without an assistive device 5 Patient requires set up or clean up by helper. Patient completes activity by themselves 4 Supervision or touching assist (CGA). [place] provide cues , steadying assist 3 The helper provides less than half the effort to complete the activity 2 The helper provides more than half the effort to complete the activity 1 Dependent. The helper does all the effort to complete an activity 7 Patient refused to complete or attempt activity 9 The patient did not perform the activity before the current illness or injury 88 Not attempted due to Medical conditions or safety concerns Pt completing resistive pegs using R/L UE 30x each then removing beads from theraputty increasing fine motor and finger dexterity needed for daily functional tasks. Pt took increased time due to decreased activity tolerance. Pt ambulated back to room using FWW needing no rest breaks. After therapy, pt lying in bed with call light/phone within reach. All needs met in room. Nsrg in room. OT Short Term Goals Short Term Goals Time Frame: Jul 06, 2018 Grooming(FIM): 5 Bathing(FIM): 4 Upper Body Dressing(FIM): 4 Lower Body Dressing(FIM): 4 Toileting(FIM): 4 Transfers (B,C,W/C) (FIM): 5 Toilet/Commode Transfer(FIM): 5 Shower Transfer(FIM): 4 Additional Short Term Goals: 1-Demonstrate ADL Tasks, 2-Verbalize Understanding , 3-ImproveStrength/Camryn 1=Demonstrate adherence to instructed precautions during ADL tasks. 2=Patient will verbalize/demonstrate understanding of assistive devices/ modifications for ADL. 3=Patient will improve strength/tolerance for activity to enable patient to perform ADL's. OT Fci Goals Fci Goals Time Frame: Jul 20, 2018 Groomin Oral Hygiene (QC): 4 Bathing(FIM): 5 Shower/Bathe Self (QC): 4 Upper Body Dressing(FIM): 5 Upper Body Dressing (QC): 4 Lower Body Dressing(FIM): 5 Lower Body Dressing (QC): 4 On/Off Footwear (QC): 4 Toileting(FIM): 5 Toileting Hygiene (QC): 4 Transfers (B,C,W/C) (FIM): 6 Toilet/Commode Transfer(FIM): 6 Toilet/Commode Transfer (QC): 6 Shower Transfer(FIM): 5 Additional Goals: 1-Demonstrate ADL Tasks, 2-Verbalize Understanding, 3- ImproveStrength/Camryn 1=Demonstrate adherence to instructed precautions during ADL tasks. 2=Patient will verbalize/demonstrate understanding of assistive devices/ modifications for ADL. 3=Patient will improve strength/tolerance for activity to enable patient to perform ADL's. OT Education/Plan Discharge Recommendations Plan/Recommendations: Continue POC Treatment Plan/Plan of Care Patient would benefit from OT for education, treatment and training to promote independence in ADL's, mobility, safety and/or upper extremity function for ADL' s. Plan of Care: ADL Retraining, Functional Mobility, Group Exercise/Act as Ind, UE Funct Exercise/Act Treatment Duration: Jul 20, 2018 Frequency: At least 5 of 7 days/Wk (IRF) Estimated Hrs Per Day: 1.5 hours per day Agreement: Yes Rehab Potential: Fair Time/GCodes Start Time: 13:30 Stop Time: 14:00 Total Time Billed (hr/min): 30 Billed Treatment Time 1 visit- Ex 2 (30 min) VIPUL KIRK Jun 26, 2018 14:17
[2018-06-26] MEDS: inSUlin DETERMIR 1 UNIT/0.01 ML (LEVEMIR) CHARGE PER UNIT SQ SCH ×2 (14:18→14:26)
[2018-06-26] MEDS ORDERED: inSUlin DETERMIR 1 UNIT/0.01 ML (LEVEMIR) CHARGE PER UNIT SQ ONE (14:20)
--- NOTE | 2018-06-26 14:45 | Physical Therapy Daily Note ---
PT Daily Note-Current Subjective pt in bed pre tx, agrees to PT, no pain to report Appearance pt in bed post tx, w/ phone, call light, tray, all needs met Mental Status Attachments: PEG Tube Transfers Functional [place] Measure 0=Not Assessed/NA 4=Minimal Assistance 1=Total Assistance 5=Supervision or Setup 2=Maximal Assistance 6=Modified [place] 3=Moderate Assistance 7=Complete IndependenceIRFPAI Quality Coding Scale 6 Independent with activity with or without an assistive device 5 Patient requires set up or clean up by helper. Patient completes activity by themselves 4 Supervision or touching assist (CGA). [place] provide cues , steadying assist 3 The helper provides less than half the effort to complete the activity 2 The helper provides more than half the effort to complete the activity 1 Dependent. The helper does all the effort to complete an activity 7 Patient refused to complete or attempt activity 9 The patient did not perform the activity before the current illness or injury 88 Not attempted due to Medical conditions or safety concerns Transfers (B, C, W/C) (FIM): 5 Scootin Rollin Supine to/from Sit: 5 supine<->sit SBA, sit<->stand SBA Weight Bearing Right Lower Extremity: Right Full Weight Bearing Left Lower Extremity: Left Full Weight Bearing Gait Training Does the Patient Walk?: Yes Gait (FIM): 4 Distance (FIM): 3=150 ft Distance: 150'x3 Gait Level of Assist: 4 Gait Assistive Device: FWW pt ambulates around unit w/ FWW and CGA, pt wore shoes w/ AFO which improved R foot drop and gait speed, improved turns and decreased scissoring Exercises Standing: Step-ups (3 sets of 10) Assessment Current Status: Fair Progress improved mobility, gait, and endurance PT Short Term Goals Short Term Goals Time Frame: Jun 29, 2018 Transfers (B,C,W/C) (FIM): 5 Gait (FIM): 5 Distance (FIM): 3=150 ft Gait Distance Comment: 200' Gait Level of Assist: 5 Gait Assistive Device: FWW Wheelchair Distance: SEE PT GOALS PT Buck Swamper Goals Prison Goals PT [place] Swamper Goals Time Frame: Jul 13, 2018 Transfers (B,C,W/C) (FIM): 6 Sit to Lying (QC): 6 Lying-Sitting on Side/Bed(QC): 6 Sit to Stand (QC): 6 Rollin Roll Left to Right (QC): 6 Chair/[id number] Xfer(QC): 6 Car Transfer (QC): 6 Does the Patient Walk: Yes Gait (FIM): 6 Distance: SEE PT GOALS Walk 10 feet (QC): 6 Walk 10ft-Uneven Surface(QC): 6 Walk 50ft with 2 Turns (QC): 6 Walk 150 ft (QC): 6 Gait Level of Assist: 6 Gait Assistive Device: FWW Stairs (FIM): 5 (household exception) # of Steps: 4 1 Step (curb) (QC): 6 4 Steps (QC): 6 12 Steps (QC): 0 Picking up an Object (QC): 4 PT Plan Problem List Problem List: Activity Tolerance, Functional Strength, Safety, Balance, Gait, Transfer, Bed Mobility Treatment/Plan Treatment Plan: Continue Plan of Care Treatment Plan: Bed Mobility, Concurrent Therapy, Education, Functional Activity Camryn, Functional Strength, Group Therapy, Gait, Safety, Therapeutic Exercise, Transfers Treatment Duration: Jul 13, 2018 Frequency: Modified Program (IRF) (due to dialysis) Estimated Hrs Per Day: 1.5 hours per day Patient and/or Family Agrees t: Yes Safety Risks/Education Patient Education: Gait Training, Transfer Techniques, Correct Positioning, Safety Issues Teaching Recipient: Patient Teaching Methods: Demonstration, Discussion Response to Teaching: Reinforcement Needed Time/GCodes Time In: 1300 Time Out: 1330 Total Billed Treatment Time: 30 Total Billed Treatment 1 visit GT 15' EX 15' VIPUL SHI PT Jun 26, 2018 14:45
--- NOTE | 2018-06-26 15:49 | Pulmonary Progress Note ---
Subjective Time Seen by Provider: 13:07 Subjective/Events-last exam No complications noted. Sepsis Event Evaluation Height, Weight, BMI Height: 5'11.00" Weight: 153lbs. 0.0oz. 69.728516tx; 20.0 BMI Method:Stated Exam Exam Vital Signs Date Time Temp Pulse Resp B/P (MAP) Pulse Ox O2 Delivery O2 Flow Rate FiO2 06/26/18 09:40 Room Air 06/26/18 05:08 97.5 81 16 134/63 (86) 97 Room Air 06/25/18 21:27 98 21 06/25/18 21:00 Room Air 06/25/18 17:55 97.7 86 18 124/80 (95) 97 Room Air I & O 06/26/18 07:00 Intake Total 3272 ml Output Total 1200 ml Balance 2072 ml Height & Weight Height: 5'11.00" Weight: 153lbs. 0.0oz. 69.072433yw; 20.0 BMI Method:Stated General Appearance: No Apparent Distress, WD/WN, Chronically ill, Cachetic HEENT: PERRL/EOMI, Normal ENT Inspection, Pharynx Normal Neck: Full Range of Motion, Supple, Other (tracheostomy tube in place.) Respiratory: Chest Non Tender, Lungs Clear, Normal Breath Sounds, No Accessory Muscle Use, No Respiratory Distress Cardiovascular: No Edema, No Gallop, No JVD, No Murmur, Normal Peripheral Pulses Capillary Refill: Less Than 3 Seconds Gastrointestinal: non tender Extremity: Normal Capillary Refill, Normal Inspection, Normal Range of Motion Neurologic/Psychiatric: Alert, Oriented x3 Skin: Normal Color, Warm/Dry Lymphatic: No Adenopathy Results Lab Laboratory Tests 06/25/18 06:12 06/26/18 04:25 Assessment/Plan Assessment/Plan S/p cardiac arrest with extended ventilator dependance and s/p tracheostomy s/p tracheostomy from prolonged ventilator dependance - ? of vocal chord paralysis per previous hospital records -Discussed with Dr. Morales. PT does have bilateral vocal cord paralysis. Pt will not tolerate not having tracheostomy. CAD s/p [place] S/P severe sepsis and endocarditis S/p PEG tube ESRD with HD severe protein kwan malnutrition CRISTÓBAL MCKINNON DO Jun 26, 2018 15:49
[2018-06-26 15:50] VITALS: BP 118/69
--- NOTE | 2018-06-26 19:43 | PM & R (SOAP) Progress Note ---
Subjective This was a face to face visit with the patient. Date Seen by Provider: Jun 26, 2018 Time Seen by Provider: 19:25 Subjective/Events-last exam Patient was seen in his room this evening C/o gereralized weakness med helps but wears off and patient c/o drowsiness Will ask [facility] to see Appreciate therapy and DR Messina and Briseyda notes and recs.PaTient SBA for transfers Review of Systems General: Other (anxiety) Objective Physician Exam Last Set of Vital Signs Vital Signs Date Time Temp Pulse Resp B/P (MAP) Pulse Ox O2 Delivery O2 Flow Rate FiO2 06/26/18 18:22 Room Air 06/26/18 15:50 96.9 81 14 118/69 (85) 99 06/25/18 21:27 21 06/24/18 01:40 6.00 Capillary Refill : Less Than 3 Seconds I&O Intake and Output 06/26/18 00:00 Intake Total 780 ml Output Total 550 ml Balance 230 ml Intake Oral 0 ml Tube Feeding 780 ml Output Urine Total 550 ml General: Alert, Oriented X3, Cooperative, No Acute Distress, Other (Afebrile P =89 RR 16 BP 106/76 02 sats 100%% RA) HEENT: PERRLA, EOMI, Mucous Memb Moist/[place] Neck: Supple, No JVD, Other (Trach functioning) Lungs: Clear to Auscultation Heart: Regular Rate Abdomen: Normal Bowel Sounds, Soft, No Tenderness, Other (Peg tube in place HD catheter in left anterior chest) Extremities: No Edema Skin: Other (Stage 4 pressure sore sacrum) Neuro: Other (Generalized weakness Lower limbs >Upper and RT lower limb >left) Psych/Mental Status: Mental Status NL Results Lab Data Laboratory Tests 06/23/18 23:54: Glucometer 165H 06/24/18 06:06: Glucometer 103 06/24/18 06:10: Sodium Level 135, Potassium Level 3.6, Chloride Level 97L, Carbon Dioxide Level 25, Anion Gap 13, Blood Urea Nitrogen 91H, Creatinine 4.16H, Estimat Glomerular Filtration Rate 15, BUN/Creatinine Ratio 22, Glucose Level 103, Calcium Level 11.5H 06/24/18 18:31: Glucometer 68L 06/24/18 23:43: Glucometer 78 06/25/18 05:45: Glucometer 104 06/25/18 06:12: Sodium Level 137, Potassium Level 3.2L, Chloride Level 96L, Carbon Dioxide Level 29, Anion Gap 12, Blood Urea Nitrogen 41H, Creatinine 2.76#H, Estimat Glomerular Filtration Rate 24, BUN/Creatinine Ratio 15, Glucose Level 105, Calcium Level 10.1 06/25/18 12:03: Glucometer 180H 06/25/18 18:04: Glucometer 118H 06/25/18 23:47: Glucometer 69L 06/26/18 01:15: Glucometer 77 06/26/18 04:25: Sodium Level 136, Potassium Level 3.6, Chloride Level 96L, Carbon Dioxide Level 30, Anion Gap 10, Blood Urea Nitrogen 53H, Creatinine 3.41#H, Estimat Glomerular Filtration Rate 19, BUN/Creatinine Ratio 16, Glucose Level 94, Calcium Level 10.3H 06/26/18 11:35: Glucometer 164H 06/26/18 18:08: Glucometer 221H Assessment/Plan Assessment and Plan 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
--- NOTE | 2018-06-26 19:49 | Individualized Plan of Care ---
Individualized Plan of Care Rehab Nursing IPOC Order Admission Date Jun 22, 2018 at 10:00 Current Orders Orders Admission Order(Inpt,Obs,Sdc) (06/22/18 10:37) Vital Signs: Routine (Order) 08,16,00 (06/22/18 10:37) Cafeteria Counter Attendant-Inpt Rehab Con (06/22/18 10:37) Rehab Nursing Orders-Ipoc (06/22/18 10:37) Physical Therapy Rehab Orders (06/22/18 10:37) Occupational Therapy Rehab Ord (06/22/18 10:37) Speech Therapy Rehab Orders (06/22/18 10:37) Intake & Output 06,14,22 (06/22/18 10:37) Accucheck Daily Q6HR (06/22/18 10:37) Precautions (Aru) (06/22/18 10:37) Code/Resuscitation (06/22/18 10:37) Consult Physician (06/22/18 10:42) Dietary Consult (06/22/18 10:44) Diet Order UD (06/22/18 10:45) Communication For Respiratory (06/22/18 10:46) Consult Wound Care Physician (06/22/18 10:48) Bupropion Tablet (Wellbutrin Tablet) (06/22/18 21:00) Darbepoetin [place] Injection (Aranesp Non (06/26/18 09:00) Folic Acid Tablet (Folic Acid Tablet) (06/23/18 09:00) Insulin Aspart (Novolog) (Novolog (Charg (06/22/18 12:00) Insulin Determir (Per Unit) (Levemir (Pe (06/23/18 09:00) Lactobacillus/[place] Tab (Lactinex (06/22/18 21:00) Melatonin Tablet (Melatonin Tablet) (06/22/18 21:00) Polyethylene Glycol Powder Pkt (Miralax (06/22/18 21:00) Prednisone Tablet (Deltasone Tablet) (06/23/18 07:00) Scopolamine Patch (Transderm-Scop Patch) (06/22/18 11:00) Sucralfate Tablet (Carafate Tablet) (06/22/18 12:00) Zolpidem Tablet (Ambien Tablet) (06/22/18 21:00) Carvedilol Tablet (Coreg Tablet) (06/22/18 21:00) Weekly Weight (Lbs) WEEK (06/22/18 11:05) Enoxaparin Injection (Lovenox Injection) (06/22/18 11:30) Pantoprazole Injection (Protonix Injecti (06/22/18 11:30) Advanced Wound Care Dressing O BID PRN (06/22/18 12:30) Rt Request For Service (06/22/18 12:47) Patient Visit (06/22/18 ) Pt Eval Moderate Complexity (06/22/18 ) Functional Activities, Ea 15 (06/22/18 ) Gait Training, Ea 15 Min (06/22/18 ) Consult Physician (06/22/18 15:27) Nystatin Oral Suspension (Mycostatin O (06/22/18 18:00) Alprazolam Tablet (Xanax Tablet) (06/22/18 16:00) Patient Visit (06/22/18 ) Speech Sound Lang Comp (06/22/18 ) Acetaminophen Tablet/Caplet (Tylenol T (06/23/18 02:00) Tramadol Tablet (Ultram Tablet) (06/23/18 02:00) Request For Dysphagia Services (06/23/18 07:46) Chest 1 View, Ap/Pa Only (06/23/18 07:50) Arterial Blood Gas (06/23/18 07:51) BNP (06/23/18 07:51) Basic Metabolic Panel (06/24/18 05:00) Cbc With Automated Diff (06/23/18 07:51) Lactobacillus Acidophilus Cap (Acidophil (06/23/18 21:00) Consult Physician (06/23/18 11:18) Tube Feeding (06/23/18 Dinner) Patient Visit (06/23/18 ) Functional Activities, Ea 15 (06/23/18 ) Exercise Therap, Ea 15 Min (06/23/18 ) Gait Training, Ea 15 Min (06/23/18 ) Patient Visit (06/23/18 ) Dysphagia Evaluation Std (06/23/18 ) Ondansetron Injection (Zofran Injectio (06/24/18 05:15) Promethazine Injection (Phenergan Injec (06/24/18 07:45) Patient Visit (06/24/18 ) Exercise Therap, Ea 15 Min (06/24/18 ) Basic Metabolic Panel (06/25/18 05:00) Guar Gum (Benefiber (From Dietary) Docum (06/25/18 09:00) Sotalol Tablet (Betapace Tablet) (06/25/18 09:53) Basic Metabolic Panel (06/26/18 05:00) Enoxaparin Injection (Lovenox Injection) (06/26/18 12:00) Insulin Determir (Per Unit) (Levemir (Pe (06/27/18 09:00) Insulin Determir (Per Unit) (Levemir (Pe (06/26/18 14:20) Insulin Determir (Per Unit) (Levemir (Pe (06/26/18 14:20) Patient Visit (06/26/18 ) Exercise Therap, Ea 15 Min (06/26/18 ) Gait Training, Ea 15 Min (06/26/18 ) Patient Visit (06/26/18 ) Dysphagia Therapy (06/26/18 ) Rehab Nursing Orders: Ongoing Assess. of Cognitive Status, Ongoing Assess. of Function Status, Disease Management & Educaiton, DVT Prophylaxis, Fall Prevention, Fluid/Electrolyte/Nutrition Mgmt, Infection Prevention, Medication Management & Education, Management of Risks & Complications, Management of Skin Intergrity, Nutrition Management, Pain Management, Patient/Family Support, Swallow Precautions PT IPOC Problem List: Activity Tolerance, Functional Strength, Safety, Balance, Gait, Transfer, Bed Mobility Treatment Plan: Continue Plan of Care Bed Mobility, Concurrent Therapy, Education, Functional Activity Camryn, Functional Strength, Group Therapy, Gait, Safety, Therapeutic Exercise, Transfers Treatment Duration: Jul 13, 2018 Frequency: Modified Program (IRF) (due to dialysis) Estimated Hrs Per Day: 1.5 hours per day OT IPOC Problems: Decreased Activ Tolerance, Decreased UE Strength, Dependent Transfers , Impaired Funct Balance, Impaired I ADL's, Impaired Self-Care Skills, Restricted Funct UE ROM OT Treatment, Training and Edu: Yes Plan of Care: ADL Retraining, Functional Mobility, Group Exercise/Act as Ind, UE Funct Exercise/Act Treatment Duration: Jul 20, 2018 Frequency: At least 5 of 7 days/Wk (IRF) Estimated Hrs Per Day: 1.[address] IPOC Speech Therapy Treatment Plan: Continue Plan of Care Treatment Duration: Jun 23, 2018 Frequency: 5 times per week Estimated Hrs Per Day: .5 hour per day Cafeteria Counter Attendant/Case Mgmt Cafeteria Counter Attendant/Case Managemen: Discharge Planning, Patient/Family Counseling Dietitian/Photoengraving Supervisor Dietitian/Photoengraving Supervisor to monitor nutritional status and make changes and/or recommendations as needed and work with speech pathology on dietary upgrades as the occur. Neuropsychology/Psychology Re anxiety Physician IPOC Medical Issues being managed closely and that require the 24 hour availability of a physician Sacral pressure sore stage 4 Vocal cord paralysis on TUBe feeds and NPO CAD s/p [place] ESRD on dialysis TIW A FIB controlled with med Severe proptein calorie malnutrition on TUBe feeds and Regional Cra following [facility] code 03.6 Etiologic Diagnosis Disuse myopathy: Medical Issues: Bowel/Bladder Function, DVT Prophylaxis, Falls Precautions, Fluid/Electrolyte/Nutrition Balance, Infection Protection, Pain Management, Swallowing Precautions, Wound Care, Other (List) (as per above) Brief Synthesis of Preadmission Screen, Post-Admission Evaluation, and Therapy Evaluations:57 yo male who had been Independent prior to developing endocarditis as a complication of rectal abscees who has been hospitalized for several months with a resulting decline in Functional [place],Currently NPO and on Tube feeds Has Vocal cord paralysis and is NPO Medical Prognosis: Fair Anticipated Length of Stay: 07-13-18 Modified Independent to supervision for adls and mobility skills as well as for tube feeds with family training as needed Anticipated d/c Destination: Home with spouse and [facility] FISH MACIAS MD Jun 26, 2018 19:49
[2018-06-26] MEDS: MELATONIN 3 MG TABLET PEG SCH (20:37)
[2018-06-26] MEDS: POLYETHYLENE GLYCOL 17 GM (MIRALAX) PACK PEG SCH (21:00)
[2018-06-27] MEDS: ZOLPIDEM 5 MG (AMBIEN) TAB PEG SCH ×2 (00:06→20:35)
[2018-06-27] MEDS: SUCRALFATE 1 GM (CARAFATE) TAB PEG SCH ×5 (00:07→23:58)
[2018-06-27] MEDS: NYSTATIN ORAL SUSP 5 ML UDC PO SCH ×5 (00:07→23:58)
[2018-06-27 06:00] VITALS: BP 144/74
[2018-06-27] MEDS: inSUlin ASPART (NovoLOG) 1 UNIT/0.01 ML (CHARGE PER UNIT) SC SCH ×5 (06:00→23:58)
[2018-06-27 06:12] LABS: CALCIUM 10.8 MG/DL (8.5-10.1); CREATININE SERUM 3.79 MG/DL (0.60-1.30); POTASSIUM 3.8 MMOL/L (3.6-5.0)
[2018-06-27] MEDS: predniSONE 10 MG TAB PEG SCH (06:21)
[2018-06-27] MEDS: ONDANSETRON 4 MG/2 ML (SDV) Z0FRAN IVP PRN (07:28)
--- NOTE | 2018-06-27 08:03 | Occupational Ther Daily Note ---
OT Current Status-Daily Note Subjective Pt alert, lying in bed. Upon arrival, pt states that he had an accident and would like cleaned up. Pt complains of nausea, reported to nsrg and medication given. Pt agrees to shower. Mental Status/Objective Patient Orientation: Person, Place, Time, Situation Functional [place] Measure 0=Not Assessed/NA 4=Minimal Assistance 1=Total Assistance 5=Supervision or Setup 2=Maximal Assistance 6=Modified [place] 3=Moderate Assistance 7=Complete [place] Attachments: PEG Tube, Other-See Comments (PICC tube) ADL-Treatment Functional [place] Measure 0=Not Assessed/NA 4=Minimal Assistance 1=Total Assistance 5=Supervision or Setup 2=Maximal Assistance 6=Modified [place] 3=Moderate Assistance 7=Complete IndependenceIRFPAI Quality Coding Scale 6 Independent with activity with or without an assistive device 5 Patient requires set up or clean up by helper. Patient completes activity by themselves 4 Supervision or touching assist (CGA). [place] provide cues , steadying assist 3 The helper provides less than half the effort to complete the activity 2 The helper provides more than half the effort to complete the activity 1 Dependent. The helper does all the effort to complete an activity 7 Patient refused to complete or attempt activity 9 The patient did not perform the activity before the current illness or injury 88 Not attempted due to Medical conditions or safety concerns Bathing (FIM): 3 (Min A, pt inefficient in cleansing LE due to dried substance on feet, assist was needed. Assist given to cleanse buttocks due to nauseasness. Pt typically does not attempt to cleanse buttocks or LE unless prompted. ) Bathing Location: L Arm, R Arm, L Upper Leg, R Upper Leg, Chest, Abdomen, Perineal Area Shower/Bathe Self (QC): 3 Upper Body (FIM): 5 (SBA, pt able to complete by self at sitting position. Pt able to manipulate shirt and button shirt by self. ) Upper Body Dressing (QC): 4 Lower Body Dressing (FIM): 3 (Pt able to don brief by self using AE. Assist, pt unable to get feet through shorts due to inability to plantar flex. Pt able to stand to manipulate clothing and hike pants over hips using FWW for stability , SBA. ) Lower Body Dressing (QC): 3 On/Off Footwear (QC): 5 (Set up, pt able to don socks by self using AE, assist with stretching socks over AE. ) Toileting (FIM): 1 (Pt was incontinent.) Toileting Hygiene (QC): 1 Transfers (B, C, W/C) (FIM): 4 (CGA, pt able to to complete using FWW and arm rails for stability. ) Shower Transfer(FIM): 4 (CGA, pt completes using grabbars and shower bench for stability. ) Pt began vomiting while in shower, nrsg notified and brought medication for nausea. After therapy, pt lying in bed with call light/phone within reach. All needs met in room. Nrsg in room. OT Short Term Goals Short Term Goals Time Frame: Jul 06, 2018 Grooming(FIM): 5 Bathing(FIM): 4 Upper Body Dressing(FIM): 4 Lower Body Dressing(FIM): 4 Toileting(FIM): 4 Transfers (B,C,W/C) (FIM): 5 Toilet/Commode Transfer(FIM): 5 Shower Transfer(FIM): 4 Additional Short Term Goals: 1-Demonstrate ADL Tasks, 2-Verbalize Understanding , 3-ImproveStrength/Camryn 1=Demonstrate adherence to instructed precautions during ADL tasks. 2=Patient will verbalize/demonstrate understanding of assistive devices/ modifications for ADL. 3=Patient will improve strength/tolerance for activity to enable patient to perform ADL's. OT Fci Goals Fci Goals Time Frame: Jul 20, 2018 Groomin Oral Hygiene (QC): 4 Bathing(FIM): 5 Shower/Bathe Self (QC): 4 Upper Body Dressing(FIM): 5 Upper Body Dressing (QC): 4 Lower Body Dressing(FIM): 5 Lower Body Dressing (QC): 4 On/Off Footwear (QC): 4 Toileting(FIM): 5 Toileting Hygiene (QC): 4 Transfers (B,C,W/C) (FIM): 6 Toilet/Commode Transfer(FIM): 6 Toilet/Commode Transfer (QC): 6 Shower Transfer(FIM): 5 Additional Goals: 1-Demonstrate ADL Tasks, 2-Verbalize Understanding, 3- ImproveStrength/Camryn 1=Demonstrate adherence to instructed precautions during ADL tasks. 2=Patient will verbalize/demonstrate understanding of assistive devices/ modifications for ADL. 3=Patient will improve strength/tolerance for activity to enable patient to perform ADL's. OT Education/Plan Discharge Recommendations Plan/Recommendations: Continue POC Treatment Plan/Plan of Care Patient would benefit from OT for education, treatment and training to promote independence in ADL's, mobility, safety and/or upper extremity function for ADL' s. Plan of Care: ADL Retraining, Functional Mobility, Group Exercise/Act as Ind, UE Funct Exercise/Act Treatment Duration: Jul 20, 2018 Frequency: At least 5 of 7 days/Wk (IRF) Estimated Hrs Per Day: 1.5 hours per day Agreement: Yes Rehab Potential: Fair Time/GCodes Start Time: 06:56 Stop Time: 07:56 Total Time Billed (hr/min): 60 Billed Treatment Time 1 visit- ADL 4 (60 min) VIPUL KIRK Jun 27, 2018 08:03
[2018-06-27] MEDS ORDERED: inSUlin DETERMIR 1 UNIT/0.01 ML (LEVEMIR) CHARGE PER UNIT SQ SCH (09:00)
--- NOTE | 2018-06-27 09:03 | Physical Therapy Daily Note ---
PT Daily Note-Current Subjective pt in bed pre tx, agrees to PT, pain 2/10 in sacrum, pt states he feels nauseous , pt vomits upon reaching therapy gym but is able to complete therapy Appearance pt in bed post tx, w/ phone, call light, and tray, all needs met Mental Status Patient Orientation: Normal For Age Attachments: PEG Tube Transfers Functional [place] Measure 0=Not Assessed/NA 4=Minimal Assistance 1=Total Assistance 5=Supervision or Setup 2=Maximal Assistance 6=Modified [place] 3=Moderate Assistance 7=Complete IndependenceIRFPAI Quality Coding Scale 6 Independent with activity with or without an assistive device 5 Patient requires set up or clean up by helper. Patient completes activity by themselves 4 Supervision or touching assist (CGA). [place] provide cues , steadying assist 3 The helper provides less than half the effort to complete the activity 2 The helper provides more than half the effort to complete the activity 1 Dependent. The helper does all the effort to complete an activity 7 Patient refused to complete or attempt activity 9 The patient did not perform the activity before the current illness or injury 88 Not attempted due to Medical conditions or safety concerns Transfers (B, C, W/C) (FIM): 5 Scootin Rollin Supine to/from Sit: 5 Sit to/from Stand: 5 SBA w/ all transfers, pt requires occasional cues to scoot to EOB to improve sit <->stand Weight Bearing Right Lower Extremity: Right Full Weight Bearing Left Lower Extremity: Left Full Weight Bearing Gait Training Does the Patient Walk?: Yes Gait (FIM): 4 Distance (FIM): 3=150 ft Distance: 200',120' Gait Level of Assist: 4 Gait Persons Needed: 1 Gait Assistive Device: FWW Pt ambulates to/from gym w/ CGA using FWW, pt wears AFO on R foot, which improves foot drop, pt demonstrates increased stability and decreased scissoring during gait and turning Exercises Seated Therapy Exercises: Sit to stand (20), Long arc quads (2# wt), Hip flexion (2# wt) Seated Reps: 40 NuStep Minutes: 16 NuStep Workload: 3 Treatments gait training, functional strengthening, endurance training Assessment Current Status: Fair Progress improved mobility and ambulation distance, decreased scissoring and more steady w/ AFO and shoes on. Patient needed extra rest time due to nausea and vomiting. PT Short Term Goals Short Term Goals Time Frame: Jun 29, 2018 Transfers (B,C,W/C) (FIM): 5 Gait (FIM): 5 Distance (FIM): 3=150 ft Gait Distance Comment: 200' Gait Level of Assist: 5 Gait Assistive Device: FWW Wheelchair Distance: SEE PT GOALS PT Bus Cleaner Goals Halfway Goals PT Bus Cleaner Goals Time Frame: Jul 13, 2018 Transfers (B,C,W/C) (FIM): 6 Sit to Lying (QC): 6 Lying-Sitting on Side/Bed(QC): 6 Sit to Stand (QC): 6 Rollin Roll Left to Right (QC): 6 Chair/Avf-sk-Zdhxl Xfer(QC): 6 Car Transfer (QC): 6 Does the Patient Walk: Yes Gait (FIM): 6 Distance: SEE PT GOALS Walk 10 feet (QC): 6 Walk 10ft-Uneven Surface(QC): 6 Walk 50ft with 2 Turns (QC): 6 Walk 150 ft (QC): 6 Gait Level of Assist: 6 Gait Assistive Device: FWW Stairs (FIM): 5 (household exception) # of Steps: 4 1 Step (curb) (QC): 6 4 Steps (QC): 6 12 Steps (QC): 0 Picking up an Object (QC): 4 PT Plan Problem List Problem List: Activity Tolerance, Functional Strength, Safety, Balance, Gait, Transfer, Bed Mobility Treatment/Plan Treatment Plan: Continue Plan of Care Treatment Plan: Bed Mobility, Concurrent Therapy, Education, Functional Activity Camryn, Functional Strength, Group Therapy, Gait, Safety, Therapeutic Exercise, Transfers Treatment Duration: Jul 13, 2018 Frequency: Modified Program (IRF) (due to dialysis) Estimated Hrs Per Day: 1.5 hours per day Patient and/or Family Agrees t: Yes Safety Risks/Education Patient Education: Gait Training, Transfer Techniques, Correct Positioning, Safety Issues Teaching Recipient: Patient Teaching Methods: Demonstration, Discussion Response to Teaching: Reinforcement Needed Time/GCodes Time In: 0800 Time Out: 0900 Total Billed Treatment Time: 60 Total Billed Treatment 1 visit GT 20 EX 40' DONNELL MA PT Jun 27, 2018 09:03
[2018-06-27] MEDS: PANTOPRAZOLE 40 MG (PROTONIX) VIAL IV SCH ×2 (09:07→20:35)
[2018-06-27] MEDS: PROMETHAZINE INJ 25 MG/ML (PHENERGAN) AMP IVP PRN (09:07)
--- NOTE | 2018-06-27 09:09 | PM & R (SOAP) Progress Note ---
Subjective This was a face to face visit with the patient. Date Seen by Provider: Jun 27, 2018 Time Seen by Provider: 08:15 Subjective/Events-last exam Patient was seen in his room this AM Discusse case with RN Patient had nausea and loose stools while doing Morning adls with OT Patient to go for Dialysis today Will check with renal re any rx for nausea not tired at this time will ccheck re addressing diarrhea-may be due to tube feeds.Patient SBA for transfers , Review of Systems Gastrointestinal: Nausea, Diarrhea Objective Physician Exam Last Set of Vital Signs Vital Signs Date Time Temp Pulse Resp B/P (MAP) Pulse Ox O2 Delivery O2 Flow Rate FiO2 06/27/18 06:00 97.6 85 20 144/74 (97) 100 Room Air 06/25/18 21:27 21 06/24/18 01:40 6.00 Capillary Refill : Less Than 3 Seconds I&O Intake and Output 06/27/18 00:00 Intake Total 3036 ml Output Total 1075 ml Balance 1961 ml Intake Oral 0 ml Tube Feeding 2505 ml Other 531 ml Output Urine Total 825 ml Emesis 250 ml General: Alert, Oriented X3, Cooperative, No Acute Distress, Other (Afebrile P =89 RR 16 BP 106/76 02 sats 100%% RA) HEENT: PERRLA, EOMI, Mucous Memb Moist/[place] Neck: Supple, No JVD, Other (Trach functioning) Lungs: Clear to Auscultation Heart: Regular Rate Abdomen: Normal Bowel Sounds, Soft, No Tenderness, Other (Peg tube in place HD catheter in left anterior chest) Extremities: No Edema Skin: Other (Stage 4 pressure sore sacrum) Neuro: Other (Generalized weakness Lower limbs >Upper and RT lower limb >left) Psych/Mental Status: Mental Status NL Results Lab Data Laboratory Tests 06/24/18 18:31: Glucometer 68L 06/24/18 23:43: Glucometer 78 06/25/18 05:45: Glucometer 104 06/25/18 06:12: Sodium Level 137, Potassium Level 3.2L, Chloride Level 96L, Carbon Dioxide Level 29, Anion Gap 12, Blood Urea Nitrogen 41H, Creatinine 2.76#H, Estimat Glomerular Filtration Rate 24, BUN/Creatinine Ratio 15, Glucose Level 105, Calcium Level 10.1 06/25/18 12:03: Glucometer 180H 06/25/18 18:04: Glucometer 118H 06/25/18 23:47: Glucometer 69L 06/26/18 01:15: Glucometer 77 06/26/18 04:25: Sodium Level 136, Potassium Level 3.6, Chloride Level 96L, Carbon Dioxide Level 30, Anion Gap 10, Blood Urea Nitrogen 53H, Creatinine 3.41#H, Estimat Glomerular Filtration Rate 19, BUN/Creatinine Ratio 16, Glucose Level 94, Calcium Level 10.3H 06/26/18 11:35: Glucometer 164H 06/26/18 18:08: Glucometer 221H 06/27/18 00:04: Glucometer 157H 06/27/18 05:39: Glucometer 169H 06/27/18 05:40: Sodium Level 134L, Potassium Level 3.8, Chloride Level 94L, Carbon Dioxide Level 27, Anion Gap 13, Blood Urea Nitrogen 69H, Creatinine 3.79H, Estimat Glomerular Filtration Rate 17, BUN/Creatinine Ratio 18, Glucose Level 165H, Calcium Level 10.8H Assessment/Plan Assessment and Plan 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 Nausea adjust meds further and f/u with renal re recs Diarrhea F/u re adjusting tube feeds and meds Vocal cord paralysis remains NPO ENT has seen Anxiety on meds [place] to see CAD s/p FL S/P cardiac arrest Severe protein calorie malnutrition with WT loss on Tube feeds ESRD on Dialysis TIW A FIB controlled with med Resp failure s/p trach Sacral pressure sore DR kellogg following with topical care and pressure relief Plan Continue PT/Ot/Wound care Team Conference tomorrow 06-28-18 F/U re recurrent nausea and diarrhea Co-Morbidities that are continuing to impact the rehab process: (include details ) FISH MACIAS MD Jun 27, 2018 09:09
[2018-06-27] MEDS: CARVEDILOL 12.5 MG (COREG) TABLET PEG SCH ×2 (09:14→20:35)
[2018-06-27] MEDS: FOLIC ACID 1 MG TAB PEG SCH (09:14)
[2018-06-27] MEDS: buPROPion 100 MG (WELLBUTRIN) TAB PEG SCH ×2 (09:14→20:35)
[2018-06-27] MEDS: LACTOBACILLUS ACIDOPHILUS (PROBIOTIC) CAPSULE PEG SCH ×2 (09:14→20:35)
[2018-06-27] MEDS: inSUlin DETERMIR 1 UNIT/0.01 ML (LEVEMIR) CHARGE PER UNIT SQ SCH (09:23)
[2018-06-27 15:38] VITALS: BP 115/70
--- NOTE | 2018-06-27 15:44 | Physical Therapy Daily Note ---
PT Daily Note-Current Subjective pt in w/c pre tx, agrees to PT, pain 2/10 in sacrum, pt has just returned from dialysis Appearance pt in bed post tx, w/ phone, call light, tray, all needs met, nurse in room to check blood sugar Mental Status Patient Orientation: Person, Place, Time Attachments: PEG Tube (disconnected at time of treatment) Transfers Functional [place] Measure 0=Not Assessed/NA 4=Minimal Assistance 1=Total Assistance 5=Supervision or Setup 2=Maximal Assistance 6=Modified [place] 3=Moderate Assistance 7=Complete IndependenceIRFPAI Quality Coding Scale 6 Independent with activity with or without an assistive device 5 Patient requires set up or clean up by helper. Patient completes activity by themselves 4 Supervision or touching assist (CGA). [place] provide cues , steadying assist 3 The helper provides less than half the effort to complete the activity 2 The helper provides more than half the effort to complete the activity 1 Dependent. The helper does all the effort to complete an activity 7 Patient refused to complete or attempt activity 9 The patient did not perform the activity before the current illness or injury 88 Not attempted due to Medical conditions or safety concerns Transfers (B, C, W/C) (FIM): 4 Supine to/from Sit: 5 Sit to/from Stand: 4 sit<->stand CGA, supine<->sit SBA, Weight Bearing Right Lower Extremity: Right Full Weight Bearing Left Lower Extremity: Left Full Weight Bearing Gait Training Does the Patient Walk?: Yes Gait (FIM): 4 Distance: 200',150' Gait Level of Assist: 4 Gait Persons Needed: 1 Gait Assistive Device: FWW pt ambulates to/from gym w/ FWW and CGA, gait is steady w/ flexed knees and trunk, improved step length and stability w/ turns Exercises Seated Therapy Exercises: Ankle pumps, Long arc quads, Hip flexion Seated Reps: 20 Standing: Step-ups Standing Reps: 40 Treatments gait training, functional strengthening Assessment Current Status: Fair Progress improved endurance and stability during ambulation, increased step length and speed PT Short Term Goals Short Term Goals Time Frame: Jun 29, 2018 Transfers (B,C,W/C) (FIM): 5 Gait (FIM): 5 Distance (FIM): 3=150 ft Gait Distance Comment: 200' Gait Level of Assist: 5 Gait Assistive Device: FWW Wheelchair Distance: SEE PT GOALS PT Cocktail Lounge Manager Goals Cocktail Lounge Manager Goals PT Half-Way Goals Time Frame: Jul 13, 2018 Transfers (B,C,W/C) (FIM): 6 Sit to Lying (QC): 6 Lying-Sitting on Side/Bed(QC): 6 Sit to Stand (QC): 6 Rollin Roll Left to Right (QC): 6 Chair/Ixv-jh-Iccge Xfer(QC): 6 Car Transfer (QC): 6 Does the Patient Walk: Yes Gait (FIM): 6 Distance: SEE PT GOALS Walk 10 feet (QC): 6 Walk 10ft-Uneven Surface(QC): 6 Walk 50ft with 2 Turns (QC): 6 Walk 150 ft (QC): 6 Gait Level of Assist: 6 Gait Assistive Device: FWW Stairs (FIM): 5 (household exception) # of Steps: 4 1 Step (curb) (QC): 6 4 Steps (QC): 6 12 Steps (QC): 0 Picking up an Object (QC): 4 PT Plan Problem List Problem List: Activity Tolerance, Functional Strength, Safety, Balance, Gait, Transfer, Bed Mobility Treatment/Plan Treatment Plan: Continue Plan of Care Treatment Plan: Bed Mobility, Concurrent Therapy, Education, Functional Activity [place], Functional Strength, Group Therapy, Gait, Safety, Therapeutic Exercise, Transfers Treatment Duration: Jul 13, 2018 Frequency: Modified Program (IRF) (due to dialysis) Estimated Hrs Per Day: 1.5 hours per day Patient and/or Family Agrees t: Yes Safety Risks/Education Patient Education: Gait Training, Transfer Techniques, Correct Positioning, Safety Issues Teaching Recipient: Patient Teaching Methods: Demonstration, Discussion Response to Teaching: Reinforcement Needed Time/GCodes Time In: 1505 Time Out: 1535 Total Billed Treatment Time: 30 Total Billed Treatment 1 visit GT 15' EX 15' DONNELL MA PT Jun 27, 2018 15:44
[2018-06-27] MEDS: ALPRAZolam 0.5 MG (XANAX) TAB PEG PRN ×2 (15:53→23:58)
[2018-06-27] MEDS: ENOXAPARIN 30 MG/0.3 ML (LOVENOX) SYR SC SCH (15:54)
--- NOTE | 2018-06-27 16:04 | Speech Therapy Daily Note ---
Speech Daily Progress Note Subjective Date Seen by Provider: Jun 27, 2018 Time Seen by Provider: 15:45 Pt in bed. Pain Numeric Pain Scale: 0-No Pain Objective Educated pt regarding ENT's report of why does not want to remove trach. Education about vocal fold paralysis and what position they are paralyzed in which is paramedian position. Reviewed dysphagia exercises, pt required min assist. Treatment Plan Continue Plan of Care Communication Comprehension: 6 Expression: 7 Social Cognition Social Interaction: 7 Problem Solvin Memory: 7 Speech Short Term Goals Short Term Goals Short Term Goals 1. Obtain information from [place] to facilitate goal planning for pt. 2. Trials by Speech only for safety of food texture. 3. Pt will complete dysphagia exercises with min assist. Time Frame-ST-2 weeks Speech Line Mover Goals Skilled Nursing Goals Pt will tolerate least restrictive diet without signs/symptoms of aspiration. Time Frame: 3-4 weeks Speech-Plan Patient/Family Goals Patient/Family Goals: to be able to eat and drink. Treatment Plan Speech Therapy Treatment Plan: Continue Plan of Care Education regarding ENT's report. Treatment Duration: Jun 23, 2018 Frequency: 5 times per week Estimated Hrs Per Day: .5 hour per day Rehab Potential: Fair Pt/Family Agrees to Plan: Yes Safety Risks/Education Teaching Recipient: Patient Teaching Methods: Demonstration, Discussion Response to Teaching: Verbalize Understanding Education Topics Provided: ENT's report. Time Speech Therapy Time In: 15:45 Speech Therapy Time Out: 16:00 Total Billed Time: 15 Billed Treatment Time 1, NAVEEN LINA Frnech Jun 27, 2018 16:04
--- NOTE | 2018-06-27 17:19 | Wound Care Assessment ---
Wound Care Assessment Date Seen by Provider: Jun 27, 2018 Time Seen by Provider: 17:12 Chief Complaint Sacral pressure ulcer. HPI The patient is a 57 year old male diabetic with Stage 4 sacral pressure ulcer, which is healing. The wound is macerated and there is a new area of moisture injury inferior to existing ulcer. Tunneling at 12 o'clock is reduced. We will change to silver alginate dressings bid to dry the area out The patient has minimal pain in the wound. Past Medical History: Admits Diabetes Type II, Admits Heart Disease (S/P aortic valve replacement.), Admits Myocardial Infarction Smoking Status: Unknown if Ever Smoked Recreational Drug Use: No Alcohol Use: Denies Use Review of Systems Pulmonary: No Dyspnea Cardiovascular: No: Chest Pain Gastrointestinal: Other (dysphagia with aspiration.) Exam Vital Signs Date Time Temp Pulse Resp B/P (MAP) Pulse Ox O2 Delivery O2 Flow Rate FiO2 06/27/18 17:02 Room Air 06/27/18 15:38 97.7 82 16 115/70 (85) 100 06/25/18 21:27 21 06/24/18 01:40 6.00 Capillary Refill : Less Than 3 Seconds General Appearance: thin Respiratory: no respiratory distress Skin: other (Sacral ulcer -- 5.3 x 1.5 x 1.0 cm, base 75% granulation, 25% slough, tunneling at 12 o'clock 1.5 cm) Results Laboratory Tests 06/26/18 18:08: Glucometer 221H 06/27/18 00:04: Glucometer 157H 06/27/18 05:39: Glucometer 169H 06/27/18 05:40: Sodium Level 134L, Potassium Level 3.8, Chloride Level 94L, Carbon Dioxide Level 27, Anion Gap 13, Blood Urea Nitrogen 69H, Creatinine 3.79H, Estimat Glomerular Filtration Rate 17, BUN/Creatinine Ratio 18, Glucose Level 165H, Calcium Level 10.8H 06/27/18 09:06: Glucometer 126H 06/27/18 15:34: Glucometer 89 Assessment/Plan/Dx 1. Pressure ulcer, sacral, stage 4, with apparent healing present. Currently macerated. 2. Diabetes mellitus, with ulcer of skin. 3. End stage renal disease, on dialysis. 4. Malnutrition. 5. Debility. Plan: Continue low air loss mattress, change to silver alginate dressings, frequent repositioning, careful toilet. DARIO QUIROZ MD Jun 27, 2018 17:19
[2018-06-27] MEDS: POLYETHYLENE GLYCOL 17 GM (MIRALAX) PACK PEG SCH (20:35)
[2018-06-27] MEDS: MELATONIN 3 MG TABLET PEG SCH (20:35)
[2018-06-28] MEDS: ONDANSETRON 4 MG/2 ML (SDV) Z0FRAN IVP PRN ×2 (00:03→13:26)
[2018-06-28 04:29] LABS: CALCIUM 9.8 MG/DL (8.5-10.1); CREATININE SERUM 2.43 MG/DL (0.60-1.30); POTASSIUM 3.1 MMOL/L (3.6-5.0)
[2018-06-28 05:44] VITALS: BP 153/83
[2018-06-28] MEDS: SUCRALFATE 1 GM (CARAFATE) TAB PEG SCH ×3 (06:44→18:21)
[2018-06-28] MEDS: predniSONE 10 MG TAB PEG SCH (06:44)
[2018-06-28] MEDS: inSUlin ASPART (NovoLOG) 1 UNIT/0.01 ML (CHARGE PER UNIT) SC SCH ×3 (06:44→18:16)
[2018-06-28] MEDS: NYSTATIN ORAL SUSP 5 ML UDC PO SCH ×3 (06:44→18:21)
[2018-06-28] MEDS: FOLIC ACID 1 MG TAB PEG SCH (08:48)
[2018-06-28] MEDS: buPROPion 100 MG (WELLBUTRIN) TAB PEG SCH ×2 (08:48→21:12)
[2018-06-28] MEDS: CARVEDILOL 12.5 MG (COREG) TABLET PEG SCH ×2 (08:48→21:12)
[2018-06-28] MEDS: LACTOBACILLUS ACIDOPHILUS (PROBIOTIC) CAPSULE PEG SCH ×2 (08:48→21:12)
[2018-06-28] MEDS: PANTOPRAZOLE 40 MG (PROTONIX) VIAL IV SCH ×2 (08:50→21:11)
[2018-06-28] MEDS: inSUlin DETERMIR 1 UNIT/0.01 ML (LEVEMIR) CHARGE PER UNIT SQ SCH (08:50)
--- NOTE | 2018-06-28 08:58 | Physical Therapy Daily Note ---
PT Daily Note-Current Subjective pt in bed pre tx, agrees to PT, no pain to report today, has just completed OT, pt states he feels quite nauseous this morning Appearance pt in bed post tx, w/ phone, call light, tray, all needs met Mental Status Patient Orientation: Person, Place, Time Attachments: PEG Tube Transfers Functional [place] Measure 0=Not Assessed/NA 4=Minimal Assistance 1=Total Assistance 5=Supervision or Setup 2=Maximal Assistance 6=Modified [place] 3=Moderate Assistance 7=Complete IndependenceIRFPAI Quality Coding Scale 6 Independent with activity with or without an assistive device 5 Patient requires set up or clean up by helper. Patient completes activity by themselves 4 Supervision or touching assist (CGA). [place] provide cues , steadying assist 3 The helper provides less than half the effort to complete the activity 2 The helper provides more than half the effort to complete the activity 1 Dependent. The helper does all the effort to complete an activity 7 Patient refused to complete or attempt activity 9 The patient did not perform the activity before the current illness or injury 88 Not attempted due to Medical conditions or safety concerns Transfers (B, C, W/C) (FIM): 5 Scootin Rollin Supine to/from Sit: 5 Sit to/from Stand: 5 SBA w/ all transfers, pt tends to forget about PEG tube management, Weight Bearing Right Lower Extremity: Right Full Weight Bearing Left Lower Extremity: Left Full Weight Bearing Gait Training Does the Patient Walk?: Yes Gait (FIM): 4 Distance: 150'x2 Gait Level of Assist: 4 Gait Persons Needed: 1 Gait Assistive Device: FWW pt ambulates to/from gym w/ FWW and CGA, steady w/ no LOB, gait speed is improving and pt demonstrates increased knee extension, uses right AFO Exercises Seated Therapy Exercises: Ankle pumps, Long arc quads (2#), Hip flexion (2#), Hamstring Curls (red band) Seated Reps: 40 Standing: Sit to Stand Standing Reps: 20 NuStep Minutes: 15 NuStep Workload: 3 Treatments gait and mobility training, functional strengthening, endurance training Assessment Current Status: Fair Progress improved knee extension and overall speed during ambulation, exercises taken slowly due to pt consistent nausea PT Short Term Goals Short Term Goals Time Frame: Jun 29, 2018 Transfers (B,C,W/C) (FIM): 5 Gait (FIM): 5 Distance (FIM): 3=150 ft Gait Distance Comment: 200' Gait Level of Assist: 5 Gait Assistive Device: FWW Wheelchair Distance: SEE PT GOALS PT Director Of Collections And Archives Goals Director Of Collections And Archives Goals PT Longterm Goals Time Frame: Jul 13, 2018 Transfers (B,C,W/C) (FIM): 6 Sit to Lying (QC): 6 Lying-Sitting on Side/Bed(QC): 6 Sit to Stand (QC): 6 Rollin Roll Left to Right (QC): 6 Chair/Iay-pd-Hcmyb Xfer(QC): 6 Car Transfer (QC): 6 Does the Patient Walk: Yes Gait (FIM): 6 Distance: SEE PT GOALS Walk 10 feet (QC): 6 Walk 10ft-Uneven Surface(QC): 6 Walk 50ft with 2 Turns (QC): 6 Walk 150 ft (QC): 6 Gait Level of Assist: 6 Gait Assistive Device: FWW Stairs (FIM): 5 (household exception) # of Steps: 4 1 Step (curb) (QC): 6 4 Steps (QC): 6 12 Steps (QC): 0 Picking up an Object (QC): 4 PT Plan Problem List Problem List: Activity Tolerance, Functional Strength, Safety, Balance, Gait, Transfer, Bed Mobility Treatment/Plan Treatment Plan: Continue Plan of Care Treatment Plan: Bed Mobility, Concurrent Therapy, Education, Functional Activity Camryn, Functional Strength, Group Therapy, Gait, Safety, Therapeutic Exercise, Transfers Treatment Duration: Jul 13, 2018 Frequency: Modified Program (IRF) (due to dialysis) Estimated Hrs Per Day: 1.5 hours per day Patient and/or Family Agrees t: Yes Safety Risks/Education Patient Education: Gait Training, Transfer Techniques, Correct Positioning, Safety Issues Teaching Recipient: Patient Teaching Methods: Demonstration, Discussion Response to Teaching: Reinforcement Needed Time/GCodes Time In: 0800 Time Out: 0900 Total Billed Treatment Time: 60 Total Billed Treatment 1 visit GT 15' EX 45' DONNELL MA PT Jun 28, 2018 08:58
[2018-06-28] MEDS: ALPRAZolam 0.5 MG (XANAX) TAB PEG PRN (09:43)
--- NOTE | 2018-06-28 10:00 | PM & R (SOAP) Progress Note ---
Subjective This was a face to face visit with the patient. Date Seen by Provider: Jun 28, 2018 Time Seen by Provider: 08:10 Subjective/Events-last exam Patient was seen in GYM with OT this AM Still having N/V Diarrhea improving Labs noted K low replace.patient SBA for transfers Review of Systems Gastrointestinal: Nausea, Vomiting Objective Physician Exam Last Set of Vital Signs Vital Signs Date Time Temp Pulse Resp B/P (MAP) Pulse Ox O2 Delivery O2 Flow Rate FiO2 06/28/18 09:00 Room Air 06/28/18 05:44 97.6 76 16 153/83 (106) 100 06/25/18 21:27 21 06/24/18 01:40 6.00 Capillary Refill : Less Than 3 Seconds I&O Intake and Output 06/28/18 00:00 Intake Total 1305 ml Output Total 100 ml Balance 1205 ml Intake Oral 0 ml Tube Feeding 955 ml Other 350 ml Output Urine Total 100 ml # Bowel Movements 1 # [place] 3 General: Alert, Oriented X3, Cooperative, No Acute Distress, Other (Afebrile P =89 RR 16 BP 106/76 02 sats 100%% RA) HEENT: PERRLA, EOMI, Mucous Memb Moist/[place] Neck: Supple, No JVD, Other (Trach functioning) Lungs: Clear to Auscultation Heart: Regular Rate Abdomen: Normal Bowel Sounds, Soft, No Tenderness, Other (Peg tube in place HD catheter in left anterior chest) Extremities: No Edema Skin: Other (Stage 4 pressure sore sacrum) Neuro: Other (Generalized weakness Lower limbs >Upper and RT lower limb >left) Psych/Mental Status: Mental Status NL Results Lab Data Laboratory Tests 06/25/18 12:03: Glucometer 180H 06/25/18 18:04: Glucometer 118H 06/25/18 23:47: Glucometer 69L 06/26/18 01:15: Glucometer 77 06/26/18 04:25: Sodium Level 136, Potassium Level 3.6, Chloride Level 96L, Carbon Dioxide Level 30, Anion Gap 10, Blood Urea Nitrogen 53H, Creatinine 3.41#H, Estimat Glomerular Filtration Rate 19, BUN/Creatinine Ratio 16, Glucose Level 94, Calcium Level 10.3H 06/26/18 11:35: Glucometer 164H 06/26/18 18:08: Glucometer 221H 06/27/18 00:04: Glucometer 157H 06/27/18 05:39: Glucometer 169H 06/27/18 05:40: Sodium Level 134L, Potassium Level 3.8, Chloride Level 94L, Carbon Dioxide Level 27, Anion Gap 13, Blood Urea Nitrogen 69H, Creatinine 3.79H, Estimat Glomerular Filtration Rate 17, BUN/Creatinine Ratio 18, Glucose Level 165H, Calcium Level 10.8H 06/27/18 09:06: Glucometer 126H 06/27/18 15:34: Glucometer 89 06/27/18 17:56: Glucometer 111H 06/27/18 23:42: Glucometer 99 06/28/18 04:10: Sodium Level 136, Potassium Level 3.1L, Chloride Level 94L, Carbon Dioxide Level 33H, Anion Gap 9, Blood Urea Nitrogen 32H, Creatinine 2.43H, Estimat Glomerular Filtration Rate 28, BUN/Creatinine Ratio 13, Glucose Level 96, Calcium Level 9.8 Assessment/Plan Assessment and Plan 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 Persistent N/V adjust meds Diarrhea improving Hypokalemia replace Vocal cord paralysis npoand on Tube feeds Anxiety on meds Severe protein cal[place] malnutrition on Tube feeds CAD s/p IA S/P cardiac arrest ESRD on Dialysis TIW A FIB controlled with med Resp faiulure s/p trach Sacral pressure sore-pressure relief and topical care DR Russell Plan Continue PT/OT/Tube feeds Adjust meds and tube feeds as needed for persistent N/V Replace K Team Conference to be held later today-see report for full functional update and POC and ELOS Co-Morbidities that are continuing to impact the rehab process: (include details ) FISH MACIAS MD Jun 28, 2018 10:00
[2018-06-28] MEDS ORDERED: KCL 20 MEQ POWDER FOR ORAL SOLUTION PEG NR (10:09)
--- NOTE | 2018-06-28 10:24 | Occupational Ther Daily Note ---
OT Current Status-Daily Note Subjective Pt sleeping, woke to name. Pt agrees to therapy. Pt stated that he had gotten back to rehab around 1500 yesterday from dialysis. No c/o pain at this time. Pt had nausea and vomiting throughout therapy after movement. Physician and nrsg notified. Mental Status/Objective Patient Orientation: Person, Place, Time, Situation Functional [place] Measure 0=Not Assessed/NA 4=Minimal Assistance 1=Total Assistance 5=Supervision or Setup 2=Maximal Assistance 6=Modified [place] 3=Moderate Assistance 7=Complete [place] Attachments: IV, PEG Tube, Other-See Comments (PIC) ADL-Treatment Pt declined taking shower. Agrees to change clothing and complete sponge bath. Mod I supine to sitting EOB using HOB slightly raised and bed rails. Pt incontinent of bowel. Standing with SBA using FWW beside bed, pt was able to cleanse self after incontinence. Using AE pt able to don pants/briefs, min A to manipulate clothing to be able place foot into pant leg. Pt ambulated to bathroom using FWW with CGA to sit at sink and completed grooming and rest of sponge bath. Functional [place] Measure 0=Not Assessed/NA 4=Minimal Assistance 1=Total Assistance 5=Supervision or Setup 2=Maximal Assistance 6=Modified [place] 3=Moderate Assistance 7=Complete IndependenceIRFPAI Quality Coding Scale 6 Independent with activity with or without an assistive device 5 Patient requires set up or clean up by helper. Patient completes activity by themselves 4 Supervision or touching assist (CGA). [place] provide cues , steadying assist 3 The helper provides less than half the effort to complete the activity 2 The helper provides more than half the effort to complete the activity 1 Dependent. The helper does all the effort to complete an activity 7 Patient refused to complete or attempt activity 9 The patient did not perform the activity before the current illness or injury 88 Not attempted due to Medical conditions or safety concerns Grooming (FIM): 6 Oral Hygiene (QC): 6 Upper Body (FIM): 5 Upper Body Dressing (QC): 5 Lower Body Dressing (FIM): 4 Lower Body Dressing (QC): 3 Toileting (FIM): 1 Toileting Hygiene (QC): 1 Other Treatment Pt ambulated to therapy gym using FWW and close SBA. Completed arm bike 10 min no resistance to increase strength and activity tolerance. Pt took multiple recovery breaks to rest and vomit throughout exercises. Resistive pegs completed with B hands to increase beef breaker/pinch strength for daily tasks. After therapy, pt lying in bed with call light/phone in reach. All needs met in room. OT Short Term Goals Short Term Goals Time Frame: Jul 06, 2018 Grooming(FIM): 5 Bathing(FIM): 4 Upper Body Dressing(FIM): 4 Lower Body Dressing(FIM): 4 Toileting(FIM): 4 Transfers (B,C,W/C) (FIM): 5 Toilet/Commode Transfer(FIM): 5 Shower Transfer(FIM): 4 Additional Short Term Goals: 1-Demonstrate ADL Tasks, 2-Verbalize Understanding , 3-ImproveStrength/[place] 1=Demonstrate adherence to instructed precautions during ADL tasks. 2=Patient will verbalize/demonstrate understanding of assistive devices/ modifications for ADL. 3=Patient will improve strength/tolerance for activity to enable patient to perform ADL's. OT Nut Dehydrator Operator Goals Skilled Nursing Goals Time Frame: Jul 20, 2018 Groomin Oral Hygiene (QC): 4 Bathing(FIM): 5 Shower/Bathe Self (QC): 4 Upper Body Dressing(FIM): 5 Upper Body Dressing (QC): 4 Lower Body Dressing(FIM): 5 Lower Body Dressing (QC): 4 On/Off Footwear (QC): 4 Toileting(FIM): 5 Toileting Hygiene (QC): 4 Transfers (B,C,W/C) (FIM): 6 Toilet/Commode Transfer(FIM): 6 Toilet/Commode Transfer (QC): 6 Shower Transfer(FIM): 5 Additional Goals: 1-Demonstrate ADL Tasks, 2-Verbalize Understanding, 3- ImproveStrength/[place] 1=Demonstrate adherence to instructed precautions during ADL tasks. 2=Patient will verbalize/demonstrate understanding of assistive devices/ modifications for ADL. 3=Patient will improve strength/tolerance for activity to enable patient to perform ADL's. OT Education/Plan Discharge Recommendations Plan/Recommendations: Continue POC Treatment Plan/Plan of Care Patient would benefit from OT for education, treatment and training to promote independence in ADL's, mobility, safety and/or upper extremity function for ADL' s. Plan of Care: ADL Retraining, Functional Mobility, Group Exercise/Act as Ind, UE Funct Exercise/Act Treatment Duration: Jul 20, 2018 Frequency: At least 5 of 7 days/Wk (IRF) Estimated Hrs Per Day: 1.5 hours per day Agreement: Yes Rehab Potential: Fair Time/GCodes Start Time: 07:00 Stop Time: 08:00 Total Time Billed (hr/min): 60 Billed Treatment Time 1 visit-ADL 3 (40 min) EX 1 (20 min) VIPUL KIRK Jun 28, 2018 10:24
--- NOTE | 2018-06-28 10:36 | Occupational Ther Daily Note ---
OT Current Status-Daily Note Subjective Pt alert, lying in bed. No c/o of pain. Pt agrees to therapy. Mental Status/Objective Patient Orientation: Person, Place, Time, Situation Functional [place] Measure 0=Not Assessed/NA 4=Minimal Assistance 1=Total Assistance 5=Supervision or Setup 2=Maximal Assistance 6=Modified [place] 3=Moderate Assistance 7=Complete [place] Attachments: PEG Tube, Other-See Comments (PICC) ADL-Treatment Functional [place] Measure 0=Not Assessed/NA 4=Minimal Assistance 1=Total Assistance 5=Supervision or Setup 2=Maximal Assistance 6=Modified [place] 3=Moderate Assistance 7=Complete IndependenceIRFPAI Quality Coding Scale 6 Independent with activity with or without an assistive device 5 Patient requires set up or clean up by helper. Patient completes activity by themselves 4 Supervision or touching assist (CGA). [place] provide cues , steadying assist 3 The helper provides less than half the effort to complete the activity 2 The helper provides more than half the effort to complete the activity 1 Dependent. The helper does all the effort to complete an activity 7 Patient refused to complete or attempt activity 9 The patient did not perform the activity before the current illness or injury 88 Not attempted due to Medical conditions or safety concerns While lying in supine position, pt completed 3 sets/3 UE dowel [place] exercises/10 reps increasing UE strength and activity tolerance needed for daily functional tasks and transfers. Pt completed resistive clothes pins 2x alternating R/L increasing fine motor grasp needed for functional activities. Pt had no complaint of nausea during session. After therapy, pt lying in bed with call light/phone within reach. All needs met in room. OT Short Term Goals Short Term Goals Time Frame: Jul 06, 2018 Grooming(FIM): 5 Bathing(FIM): 4 Upper Body Dressing(FIM): 4 Lower Body Dressing(FIM): 4 Toileting(FIM): 4 Transfers (B,C,W/C) (FIM): 5 Toilet/Commode Transfer(FIM): 5 Shower Transfer(FIM): 4 Additional Short Term Goals: 1-Demonstrate ADL Tasks, 2-Verbalize Understanding , 3-ImproveStrength/[place] 1=Demonstrate adherence to instructed precautions during ADL tasks. 2=Patient will verbalize/demonstrate understanding of assistive devices/ modifications for ADL. 3=Patient will improve strength/tolerance for activity to enable patient to perform ADL's. OT Vaccine Customer Representative Goals [facility] Goals Time Frame: Jul 20, 2018 Groomin Oral Hygiene (QC): 4 Bathing(FIM): 5 Shower/Bathe Self (QC): 4 Upper Body Dressing(FIM): 5 Upper Body Dressing (QC): 4 Lower Body Dressing(FIM): 5 Lower Body Dressing (QC): 4 On/Off Footwear (QC): 4 Toileting(FIM): 5 Toileting Hygiene (QC): 4 Transfers (B,C,W/C) (FIM): 6 Toilet/Commode Transfer(FIM): 6 Toilet/Commode Transfer (QC): 6 Shower Transfer(FIM): 5 Additional Goals: 1-Demonstrate ADL Tasks, 2-Verbalize Understanding, 3- ImproveStrength/[place] 1=Demonstrate adherence to instructed precautions during ADL tasks. 2=Patient will verbalize/demonstrate understanding of assistive devices/ modifications for ADL. 3=Patient will improve strength/tolerance for activity to enable patient to perform ADL's. OT Education/Plan Discharge Recommendations Plan/Recommendations: Continue POC Treatment Plan/Plan of Care Patient would benefit from OT for education, treatment and training to promote independence in ADL's, mobility, safety and/or upper extremity function for ADL' s. Plan of Care: ADL Retraining, Functional Mobility, Group Exercise/Act as Ind, UE Funct Exercise/Act Treatment Duration: Jul 20, 2018 Frequency: At least 5 of 7 days/Wk (IRF) Estimated Hrs Per Day: 1.5 hours per day Agreement: Yes Rehab Potential: Fair Time/GCodes Start Time: 10:00 Stop Time: 10:30 Total Time Billed (hr/min): 30 Billed Treatment Time 1 visit- Ex 2 (30 min) VIPUL KIRK Jun 28, 2018 10:36
[2018-06-28] MEDS: SCOPOLAMINE 1.5 MG (TRANSDERM-SCOP) PATCH TOP SCH (12:51)
--- NOTE | 2018-06-28 15:19 | Physical Therapy Daily Note ---
PT Daily Note-Current Subjective pt in bed pre tx, agrees to PT, no pain to report, Appearance pt in bed post tx, w/ phone, call light, tray, all needs met Mental Status Patient Orientation: Person, Place, Time Attachments: PEG Tube Transfers Functional [place] Measure 0=Not Assessed/NA 4=Minimal Assistance 1=Total Assistance 5=Supervision or Setup 2=Maximal Assistance 6=Modified [place] 3=Moderate Assistance 7=Complete IndependenceIRFPAI Quality Coding Scale 6 Independent with activity with or without an assistive device 5 Patient requires set up or clean up by helper. Patient completes activity by themselves 4 Supervision or touching assist (CGA). [place] provide cues , steadying assist 3 The helper provides less than half the effort to complete the activity 2 The helper provides more than half the effort to complete the activity 1 Dependent. The helper does all the effort to complete an activity 7 Patient refused to complete or attempt activity 9 The patient did not perform the activity before the current illness or injury 88 Not attempted due to Medical conditions or safety concerns Transfers (B, C, W/C) (FIM): 5 Scootin Rollin Supine to/from Sit: 5 Sit to/from Stand: 5 SBA w/ all transfers, pt occasionally needs a second attempt during sit->stand out of bed, but is able to stand w/ SBA Weight Bearing Right Lower Extremity: Right Full Weight Bearing Left Lower Extremity: Left Full Weight Bearing Gait Training Does the Patient Walk?: Yes Gait (FIM): 5 Distance: 200'x150' Gait Level of Assist: 5 Gait Persons Needed: 1 Gait Assistive Device: FWW pt ambulates to/from gym w/ FWW and SBA, pt show improvements w/ turning and knee extension, pt wears R AFO Neuromuscular standing balance in parallel bars 3x2min unsupported, pt able to grab bars if he feels LOB walking in parallel bars forward/backwards 2x8' pt is unsteady but able to complete activity w/ Cate Treatments gait training, balance training Assessment Current Status: Fair Progress improved gait speed and assistance level, increased standing balance PT Short Term Goals Short Term Goals Time Frame: Jun 29, 2018 Transfers (B,C,W/C) (FIM): 5 Gait (FIM): 5 Distance (FIM): 3=150 ft Gait Distance Comment: 200' Gait Level of Assist: 5 Gait Assistive Device: FWW Wheelchair Distance: SEE PT GOALS PT Ship Pilot Goals Ship Pilot Goals PT Shelter Goals Time Frame: Jul 13, 2018 Transfers (B,C,W/C) (FIM): 6 Sit to Lying (QC): 6 Lying-Sitting on Side/Bed(QC): 6 Sit to Stand (QC): 6 Rollin Roll Left to Right (QC): 6 Chair/Ksr-ck-Djozb Xfer(QC): 6 Car Transfer (QC): 6 Does the Patient Walk: Yes Gait (FIM): 6 Distance: SEE PT GOALS Walk 10 feet (QC): 6 Walk 10ft-Uneven Surface(QC): 6 Walk 50ft with 2 Turns (QC): 6 Walk 150 ft (QC): 6 Gait Level of Assist: 6 Gait Assistive Device: FWW Stairs (FIM): 5 (household exception) # of Steps: 4 1 Step (curb) (QC): 6 4 Steps (QC): 6 12 Steps (QC): 0 Picking up an Object (QC): 4 PT Plan Problem List Problem List: Activity Tolerance, Functional Strength, Safety, Balance, Gait, Transfer, Bed Mobility, ROM Treatment/Plan Treatment Plan: Continue Plan of Care Treatment Plan: Bed Mobility, Concurrent Therapy, Education, Functional Activity Camryn, Functional Strength, Group Therapy, Gait, Safety, Therapeutic Exercise, Transfers Treatment Duration: Jul 13, 2018 Frequency: Modified Program (IRF) (due to dialysis) Estimated Hrs Per Day: 1.5 hours per day Patient and/or Family Agrees t: Yes Safety Risks/Education Patient Education: Gait Training, Transfer Techniques, Correct Positioning, Safety Issues Teaching Recipient: Patient Teaching Methods: Demonstration, Discussion Response to Teaching: Reinforcement Needed Time/GCodes Time In: 1430 Time Out: 1500 Total Billed Treatment Time: 30 Total Billed Treatment 1 visit GT 15' NM 15' DONNELL MA PT Jun 28, 2018 15:19
--- NOTE | 2018-06-28 15:26 | Speech Therapy Daily Note ---
Speech Daily Progress Note Subjective Date Seen by Provider: Jun 28, 2018 Time Seen by Provider: 15:15 Pt in bed and alert. Pain Numeric Pain Scale: 0-No Pain Objective Reviewed dysphagia exercises. Pt independent. Pt asked if he was ever going to be able to eat again. Educated that the position that his vocal folds are paralyzed in and that he is young that there is a chance. Assessment Assessment Current Status: Fair Progress Treatment Plan Continue Plan of Care Communication Comprehension: 6 Expression: 7 Social Cognition Social Interaction: 7 Problem Solvin Memory: 7 Speech Short Term Goals Short Term Goals Short Term Goals 1. Obtain information from [place] to facilitate goal planning for pt. 2. Trials by Speech only for safety of food texture. 3. Pt will complete dysphagia exercises with min assist. Time Frame-ST-2 weeks Speech Cubing Machine Tender Goals Cubing Machine Tender Goals Pt will tolerate least restrictive diet without signs/symptoms of aspiration. Time Frame: 3-4 weeks Speech-Plan Patient/Family Goals Patient/Family Goals: to eat and drink again. Treatment Plan Speech Therapy Treatment Plan: Continue Plan of Care pt cooperative. Treatment Duration: Jun 23, 2018 Frequency: 5 times per week Estimated Hrs Per Day: .25 hour per day Rehab Potential: Fair Pt/Family Agrees to Plan: Yes Safety Risks/Education Teaching Recipient: Patient Teaching Methods: Discussion Response to Teaching: Verbalize Understanding Time Speech Therapy Time In: 15:15 Speech Therapy Time Out: 15:30 Total Billed Time: 15 Billed Treatment Time 1NAVEEN RANDY ST Jun 28, 2018 15:26
[2018-06-28] MEDS: ENOXAPARIN 30 MG/0.3 ML (LOVENOX) SYR SC SCH (16:56)
[2018-06-28 17:40] VITALS: BP 199/96
[2018-06-28 19:00] VITALS: BP 119/78
[2018-06-28] MEDS: POLYETHYLENE GLYCOL 17 GM (MIRALAX) PACK PEG SCH (20:00)
[2018-06-28] MEDS: METOCLOPRAMIDE 10MG/10ML ORAL SOL(REGLAN) UDC PEG SCH (21:12)
[2018-06-28] MEDS: MELATONIN 3 MG TABLET PEG SCH (21:12)
[2018-06-28] MEDS: ZOLPIDEM 5 MG (AMBIEN) TAB PEG SCH (21:13)
[2018-06-29] MEDS: NYSTATIN ORAL SUSP 5 ML UDC PO SCH ×4 (00:55→18:37)
[2018-06-29] MEDS: SUCRALFATE 1 GM (CARAFATE) TAB PEG SCH ×4 (00:56→18:37)
[2018-06-29] MEDS: inSUlin ASPART (NovoLOG) 1 UNIT/0.01 ML (CHARGE PER UNIT) SC SCH ×5 (00:56→23:03)
[2018-06-29] MEDS: ONDANSETRON 4 MG/2 ML (SDV) Z0FRAN IVP PRN ×2 (04:04→22:28)
[2018-06-29] MEDS: predniSONE 10 MG TAB PEG SCH (04:44)
[2018-06-29] MEDS: ALPRAZolam 0.5 MG (XANAX) TAB PEG PRN ×3 (04:44→21:00)
[2018-06-29 04:55] VITALS: BP 143/84
--- NOTE | 2018-06-29 05:47 | Pulmonary Progress Note ---
Subjective Time Seen by Provider: 05:47 Subjective/Events-last exam No complications noted. Sepsis Event Evaluation Height, Weight, BMI Height: 5'11.00" Weight: 155lbs. 0.0oz. 70.837756mn; 20.0 BMI Method:Stated Exam Exam Vital Signs Date Time Temp Pulse Resp B/P (MAP) Pulse Ox O2 Delivery O2 Flow Rate FiO2 06/29/18 04:55 98.3 75 18 143/84 (103) 98 Room Air 06/28/18 20:45 Room Air 06/28/18 19:57 98 Room Air 06/28/18 19:00 81 16 119/78 (92) 06/28/18 17:40 97.9 75 16 () 100 Room Air 06/28/18 15:27 Room Air 06/28/18 09:00 Room Air I & O 06/29/18 07:00 Intake Total 1638 ml Output Total 950 ml Balance 688 ml Height & Weight Height: 5'11.00" Weight: 155lbs. 0.0oz. 70.938143fx; 20.0 BMI Method:Stated General Appearance: No Apparent Distress, WD/WN, Chronically ill, Cachetic HEENT: PERRL/EOMI, Normal ENT Inspection, Pharynx Normal Neck: Full Range of Motion, Supple, Other (tracheostomy tube in place.) Respiratory: Chest Non Tender, Lungs Clear, Normal Breath Sounds, No Accessory Muscle Use, No Respiratory Distress Cardiovascular: No Edema, No Gallop, No JVD, No Murmur, Normal Peripheral Pulses Capillary Refill: Less Than 3 Seconds Gastrointestinal: non tender Extremity: Normal Capillary Refill, Normal Inspection, Normal Range of Motion Neurologic/Psychiatric: Alert, Oriented x3 Skin: Normal Color, Warm/Dry Lymphatic: No Adenopathy Results Lab Laboratory Tests 06/28/18 04:10 Assessment/Plan Assessment/Plan S/p cardiac arrest with extended ventilator dependance and s/p tracheostomy s/p tracheostomy from prolonged ventilator dependance - ? of vocal chord paralysis per previous hospital records -Discussed with Dr. Morales. PT does have bilateral vocal cord paralysis. Pt will not tolerate not having tracheostomy. CAD s/p IA S/P severe sepsis and endocarditis S/p PEG tube ESRD with HD severe protein kwan malnutrition CRISTÓBAL MCKINNON DO Jun 29, 2018 05:47
[2018-06-29 07:07] LABS: CALCIUM 10.1 MG/DL (8.5-10.1); CREATININE SERUM 3.2 MG/DL (0.60-1.30); POTASSIUM 3.9 MMOL/L (3.6-5.0)
--- NOTE | 2018-06-29 09:26 | Behavioral Health Consult ---
Consult- Consult Date Seen by Provider: Jun 28, 2018 Time Seen by Provider: 11:00 Date: 06-28-18 Referral: [facility]. [facility]#: [id number] CPT Code: 41982 Psychodiagnostic Examination 08895 Interactive Complexity, 1 unit(s) Start Time: 11:00 am Stop Time: 1:00 pm Chief Complaint: anxiety Referral: Connor Edmonds is a 57-year-old, , male referred by Dr. Craft for a clinical diagnostic assessment. Information for this evaluation was gathered from self-report, clinical observation, and medical records. Presenting Problem: Connor reported he has been hospitalized since the end of December. He reported he had a sore on his rear, went to a surgeon, and it was found that he had a heart murmur. He reported he then had open heart surgery and then got very sick after his surgery. He reported he had to have heart surgery again and has had many problems since that surgery. Connor reported he does not remember the dates of everything, but stated he has been primarily in the hospital since the end of December. He reported sometime in January he had to have a tracheotomy put in and he has struggled with that. He reported a drastic weight loss of 60 pounds after it was put in and has had a loss of appetite. Connor reported he has had anxiety for the past month. He denied specific worries, but stated he feels jumpy. To try and manage his anxiety, he reported he will take deep breaths and sleep. He was told the deep breathing will actually help decrease his anxiety; the other will only help him avoid dealing with his anxiety. He reported he worries about being able to swallow, eat and drink due to having to have a trachea in right now, but denied any other worries. He rated his current anxiety is at a 5 due to having to lay in bed and if he tries to sit up he feels nauseous. He reported about a month ago it was a 3. Connor reported some feelings of sadness and stated he needed to have some progress before he would start to feel happiness. He reported hypersomnia the past few months. He reported a weight and appetite change, but stated that was due to the trachea. He denied loss of pleasure, worthlessness, guilt, or problems concentrating. He denied thoughts of or suicide or any past suicide attempts. Observations/Mental Status: Connor was seen on the rehab floor and was alone. Overall appearance was disheveled. Connor appeared to be a fair historian. Observed gait and gross motor movements indicated no clinically significant difficulties. Alva general approach to the evaluation indicated interest. Orientation was intact for person, place, time, and situation. Connor evidenced fair understanding of the reason for the appointment. Alva in- session behavior was cooperative. The predominant mood was depressed with affect appropriate to expressed concerns and presenting problem. Immediate attention and concentration was unremarkable clinically during the interview. Memory functioning appeared to be intact. Level of intellectual functioning compared to same age peers was estimated to be in the average range. Thought processes were found to be generally logical, coherent and goal directed. Thought content appeared normal. Psychomotor functioning was within normal limits. Tone of voice was normal and controlled. Expressive speech was marked by fluent speech and language. Eye contact was fair. Insight was fair. Overall, style of interacting during the appointment was appropriate and motivated. Current/Previous Mental Health Treatment: Past psychiatric history was denied. History of self or other harm was denied. Current destructive behavior patterns : none indicated or reported. Family psychiatric history was reported as unremarkable. Medical History: Current physician is Dr. Del Rosario. Relevant family medical history was not assessed. Recreational Drug Usage: Substance abuse history was denied any current or history of abuse but reported he will occasionally use alcohol. Family history of alcohol or drug abuse was not assessed. Educational and Vocational Histories: Current vocational status: not currently working. 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 He reported he does not think he will be able to return to work. Family and Social Histories: Connor reported he currently lives with his and daughter in [place]. He reported he has a son and daughter who live in [place]. He reported he has good support and is able to see his family often. Summary of Assessment Information/Prognosis: Connor is a 57-year-old male. Following current assessment, presenting problem and symptoms appear consistent with a preliminary diagnosis of F43.23 Adjustment Disorder with mixed anxiety and depressed mood. Overall, prognosis is estimated to be guarded. Strengths/Weaknesses: Strengths/Resources: accepts feedback, good personal care habits, stable living environment, and supportive family Liabilities/Barriers: health problems Diagnostic Impressions: F43.23 Adjustment Disorder with mixed anxiety and depressed mood Initial Treatment Plan/Recommendations: The recommendations at this time include the following: individual outpatient psychotherapy and medical/ medication consultation with family physician. It is requested that the hospital staff assist patient in scheduling an outpatient therapy appointment once they know when he will be discharged. Connor is recommended to return once he is discharged from the hospital. Further disposition will be made at that time. Connor verbalized understanding of these recommendations and an intention to comply with the proposed treatment plan and course of treatment. JASMINE ABDALLA [facility] Jun 29, 2018 09:26
--- NOTE | 2018-06-29 09:37 | Occ Therapy Progress Note ---
Therapy Progress Note Pt was taken for dialysis early this morning and is out of the building at this time SKYE LEE OT Jun 29, 2018 09:37
--- NOTE | 2018-06-29 12:13 | Occupational Ther Daily Note ---
OT Current Status-Daily Note Subjective Pt back from dialysis. OT/PT co-treat for skilled care and decreased activity tolerance. Pt agrees to therapy. No c/o pain at this time. Mental Status/Objective Patient Orientation: Person, Place, Time, Situation Functional [place] Measure 0=Not Assessed/NA 4=Minimal Assistance 1=Total Assistance 5=Supervision or Setup 2=Maximal Assistance 6=Modified [place] 3=Moderate Assistance 7=Complete [place] Attachments: IV, PEG Tube, Other-See Comments ADL-Treatment Functional [place] Measure 0=Not Assessed/NA 4=Minimal Assistance 1=Total Assistance 5=Supervision or Setup 2=Maximal Assistance 6=Modified [place] 3=Moderate Assistance 7=Complete IndependenceIRFPAI Quality Coding Scale 6 Independent with activity with or without an assistive device 5 Patient requires set up or clean up by helper. Patient completes activity by themselves 4 Supervision or touching assist (CGA). [place] provide cues , steadying assist 3 The helper provides less than half the effort to complete the activity 2 The helper provides more than half the effort to complete the activity 1 Dependent. The helper does all the effort to complete an activity 7 Patient refused to complete or attempt activity 9 The patient did not perform the activity before the current illness or injury 88 Not attempted due to Medical conditions or safety concerns Transfers (B, C, W/C) (FIM): 5 (SBA, pt uses FWW for stability. Pt able to go from EOB to supine position by self using arm rail.) Other Treatment PT worked on car transfers, transfers, ambulation, balance and LE strengthening. OT worked on UE strengthening, reaching grasping for daily functional tasks and fine motor tasks. Pt completed alternating arm exercises for 20 min/no resistance increasing UE strength needed for functional daily activities. Simulated kitchen tasks in standing reaching up and placing down at lower level increasing activity tolerance and dynamic standing balance. Fine motor activity completed to increase pinch/industrial boilermaker strength. Pt took increased time to complete tasks, taking multiple rest breaks. Pt had no complaints of nausea during session. After therapy, pt ambulated back to room using FWW, therapists offered to take pt to restroom, pt declined. Pt lying in bed with call light/phone within reach. All needs met in room. OT Short Term Goals Short Term Goals Time Frame: Jul 06, 2018 Grooming(FIM): 5 Bathing(FIM): 4 Upper Body Dressing(FIM): 4 Lower Body Dressing(FIM): 4 Toileting(FIM): 4 Transfers (B,C,W/C) (FIM): 5 Toilet/Commode Transfer(FIM): 5 Shower Transfer(FIM): 4 Additional Short Term Goals: 1-Demonstrate ADL Tasks, 2-Verbalize Understanding , 3-ImproveStrength/Camryn 1=Demonstrate adherence to instructed precautions during ADL tasks. 2=Patient will verbalize/demonstrate understanding of assistive devices/ modifications for ADL. 3=Patient will improve strength/tolerance for activity to enable patient to perform ADL's. OT Intermediate Goals Intermediate Goals Time Frame: Jul 20, 2018 Groomin Oral Hygiene (QC): 4 Bathing(FIM): 5 Shower/Bathe Self (QC): 4 Upper Body Dressing(FIM): 5 Upper Body Dressing (QC): 4 Lower Body Dressing(FIM): 5 Lower Body Dressing (QC): 4 On/Off Footwear (QC): 4 Toileting(FIM): 5 Toileting Hygiene (QC): 4 Transfers (B,C,W/C) (FIM): 6 Toilet/Commode Transfer(FIM): 6 Toilet/Commode Transfer (QC): 6 Shower Transfer(FIM): 5 Additional Goals: 1-Demonstrate ADL Tasks, 2-Verbalize Understanding, 3- ImproveStrength/Camryn 1=Demonstrate adherence to instructed precautions during ADL tasks. 2=Patient will verbalize/demonstrate understanding of assistive devices/ modifications for ADL. 3=Patient will improve strength/tolerance for activity to enable patient to perform ADL's. OT Education/Plan Discharge Recommendations Plan/Recommendations: Continue POC Treatment Plan/Plan of Care Patient would benefit from OT for education, treatment and training to promote independence in ADL's, mobility, safety and/or upper extremity function for ADL' s. Plan of Care: ADL Retraining, Functional Mobility, Group Exercise/Act as Ind, UE Funct Exercise/Act Treatment Duration: Jul 20, 2018 Frequency: At least 5 of 7 days/Wk (IRF) Estimated Hrs Per Day: 1.5 hours per day Agreement: Yes Rehab Potential: Fair Time/GCodes Start Time: 11:00 Stop Time: 12:30 Total Time Billed (hr/min): 90 Billed Treatment Time 1 visit- EX 4 (60 min) FA 2 (30 min)- co-treat 90 min VIPUL KIRK Jun 29, 2018 12:13
[2018-06-29] MEDS: PANTOPRAZOLE 40 MG (PROTONIX) VIAL IV SCH ×2 (12:41→21:00)
[2018-06-29] MEDS: METOCLOPRAMIDE 10MG/10ML ORAL SOL(REGLAN) UDC PEG SCH ×2 (12:41→21:00)
[2018-06-29] MEDS: FOLIC ACID 1 MG TAB PEG SCH (12:42)
[2018-06-29] MEDS: LACTOBACILLUS ACIDOPHILUS (PROBIOTIC) CAPSULE PEG SCH ×2 (12:42→20:59)
[2018-06-29] MEDS: CARVEDILOL 12.5 MG (COREG) TABLET PEG SCH ×2 (12:42→20:59)
[2018-06-29] MEDS: buPROPion 100 MG (WELLBUTRIN) TAB PEG SCH ×2 (12:42→20:59)
--- NOTE | 2018-06-29 13:21 | Physical Therapy Daily Note ---
PT Daily Note-Current Subjective Pt back from dialysis. OT/PT co-treat for skilled care and decreased activity tolerance. Pt agrees to therapy. No c/o pain at this time. Pain Location: No Pain Reported Mental Status Patient Orientation: Person, Place, Time, Situation Attachments: PEG Tube Transfers Functional [place] Measure 0=Not Assessed/NA 4=Minimal Assistance 1=Total Assistance 5=Supervision or Setup 2=Maximal Assistance 6=Modified [place] 3=Moderate Assistance 7=Complete IndependenceIRFPAI Quality Coding Scale 6 Independent with activity with or without an assistive device 5 Patient requires set up or clean up by helper. Patient completes activity by themselves 4 Supervision or touching assist (CGA). [place] provide cues , steadying assist 3 The helper provides less than half the effort to complete the activity 2 The helper provides more than half the effort to complete the activity 1 Dependent. The helper does all the effort to complete an activity 7 Patient refused to complete or attempt activity 9 The patient did not perform the activity before the current illness or injury 88 Not attempted due to Medical conditions or safety concerns Scootin Rollin Roll Left to Right (QC): 5 Supine to/from Sit: 5 Sit to/from Stand: 5 Sit to Lying (QC): 5 Sit to Stand (QC): 5 Weight Bearing Right Lower Extremity: Right Full Weight Bearing Left Lower Extremity: Left Full Weight Bearing Gait Training Does the Patient Walk?: Yes Distance (FIM): 3=150 ft Distance: 200' Walk 10 feet (QC): 5 Walk 50 ft with 2 Turns(QC): 5 Walk 150 ft (QC): 5 Gait Level of Assist: 5 Gait Persons Needed: 1 Gait Assistive Device: FWW Pt walks with slow zurdo but steady, no LOB. Wheelchair Training Does the Pt Use a Wheelchair?: No Exercises Seated Therapy Exercises: Ankle pumps (L side only), Long arc quads, Hip flexion, Kicking activity Seated Reps: 20 Standing: Hamstring curls, Heel/toe raises, Marching, Sit to Stand, Side steps , Weight shifts Standing Reps: 20 NuStep Minutes: 20 NuStep Workload: 4 Treatments PT worked on car transfers, transfers, ambulation, balance and LE strengthening. OT worked on UE strengthening, reaching grasping for daily functional tasks and fine motor tasks. Pt completed alternating arm exercises for 20 min/no resistance increasing UE strength needed for functional daily activities. Simulated kitchen tasks in standing reaching up and placing down at lower level increasing activity tolerance and dynamic standing balance. Fine motor activity completed to increase pinch/datapower developer strength. Pt took increased time to complete tasks, taking multiple rest breaks. Pt had no complaints of nausea during session. After therapy, pt ambulated back to room using FWW, therapists offered to take pt to restroom, pt declined. Pt lying in bed with call light/phone within reach. All needs met in room. Assessment Current Status: Good Progress Pt took rest breaks as needed for fatigue. 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 Goals Time Frame: Jul 13, 2018 Transfers (B,C,W/C) (FIM): 6 Sit to Lying (QC): 6 Lying-Sitting on Side/Bed(QC): 6 Sit to Stand (QC): 6 Rollin Roll Left to Right (QC): 6 Chair/[id number] Xfer(QC): 6 Car Transfer (QC): 6 Does the Patient Walk: Yes Gait (FIM): 6 Distance: SEE PT GOALS Walk 10 feet (QC): 6 Walk 10ft-Uneven Surface(QC): 6 Walk 50ft with 2 Turns (QC): 6 Walk 150 ft (QC): 6 Gait Level of Assist: 6 Gait Assistive Device: FWW Stairs (FIM): 5 (household exception) # of Steps: 4 1 Step (curb) (QC): 6 4 Steps (QC): 6 12 Steps (QC): 0 Picking up an Object (QC): 4 PT Plan Problem List Problem List: Activity Tolerance, Functional Strength, Safety, Balance, Gait Treatment/Plan Treatment Plan: Continue Plan of Care Treatment Plan: Bed Mobility, Concurrent Therapy, Education, Functional Activity Camryn, Functional Strength, Group Therapy, Gait, Safety, Therapeutic Exercise, Transfers Treatment Duration: Jul 13, 2018 Frequency: Modified Program (IRF) (due to dialysis) Estimated Hrs Per Day: 1.5 hours per day Patient and/or Family Agrees t: Yes Safety Risks/Education Patient Education: Gait Training, Transfer Techniques, Correct Positioning, Safety Issues Teaching Recipient: Patient Teaching Methods: Discussion Response to Teaching: Verbalize Understanding Time/GCodes Time In: 1100 Time Out: 1230 Total Billed Treatment Time: 90 Total Billed Treatment 1, GT (20m), EX x3 (45m) & FA x2 (25m) Co-treat for 90m ([id number]) G Codes Necessary: No CONTRERAS ECHEVARRIA SAUSAGE SMOKER Jun 29, 2018 13:21
[2018-06-29] MEDS: inSUlin DETERMIR 1 UNIT/0.01 ML (LEVEMIR) CHARGE PER UNIT SQ SCH (13:22)
--- NOTE | 2018-06-29 15:41 | Speech Therapy Daily Note ---
Speech Daily Progress Note Subjective Date Seen by Provider: Jun 29, 2018 Time Seen by Provider: 15:15 Pt in bed. Pain Numeric Pain Scale: 0-No Pain Objective Reviewed new dysphagia exercises. Min assist provided for correct was to perform exercises. Will see pt tomorrow, 06/30 and then discharge due to goals achieved. Assessment Assessment Current Status: Good Progress Treatment Plan Continue Plan of Care Communication Comprehension: 6 Expression: 7 Social Cognition Social Interaction: 7 Problem Solvin Memory: 7 Speech Short Term Goals Short Term Goals Short Term Goals 1. Obtain information from [place] to facilitate goal planning for pt. 2. Trials by Speech only for safety of food texture. 3. Pt will complete dysphagia exercises with min assist. Time Frame-ST-2 weeks Speech Scaling Machine Operator Goals Assisted Goals Pt will tolerate least restrictive diet without signs/symptoms of aspiration. Time Frame: 3-4 weeks Speech-Plan Patient/Family Goals Patient/Family Goals: to eat and drink. Treatment Plan Speech Therapy Treatment Plan: Continue Plan of Care Plan to dc pt after Tuesday's session. Treatment Duration: Jun 23, 2018 Frequency: 5 times per week Estimated Hrs Per Day: .25 hour per day Rehab Potential: Fair Pt/Family Agrees to Plan: Yes Safety Risks/Education Teaching Recipient: Patient Teaching Methods: Discussion Response to Teaching: Verbalize Understanding Time Speech Therapy Time In: 15:15 Speech Therapy Time Out: 15:30 Total Billed Time: 15 Billed Treatment Time 1, NAVEEN LINA French Jun 29, 2018 15:41
[2018-06-29] MEDS: ENOXAPARIN 30 MG/0.3 ML (LOVENOX) SYR SC SCH (15:48)
[2018-06-29 16:22] VITALS: BP 111/70
--- NOTE | 2018-06-29 19:36 | PM & R (SOAP) Progress Note ---
Subjective This was a face to face visit with the patient. Date Seen by Provider: Jun 29, 2018 Time Seen by Provider: 19:20 Subjective/Events-last exam Patient was seen in his room this evening Discussed case with RN Insulin being adjusted for DM Patient without N/V with fausto on board.Patient SBA for transfers Objective Physician Exam Last Set of Vital Signs Vital Signs Date Time Temp Pulse Resp B/P (MAP) Pulse Ox O2 Delivery O2 Flow Rate FiO2 06/29/18 16:22 98.1 70 14 111/70 (84) 99 Room Air 06/25/18 21:27 21 06/24/18 01:40 6.00 Capillary Refill : Less Than 3 Seconds I&O Intake and Output 06/29/18 00:00 Intake Total 2136 ml Output Total 675 ml Balance 1461 ml Intake Oral 0 ml Tube Feeding 1785 ml Other 351 ml Output Urine Total 675 ml # Voids 1 # Bowel Movements 1 General: Alert, Oriented X3, Cooperative, No Acute Distress, Other (Afebrile P =89 RR 16 BP 106/76 02 sats 100%% RA) HEENT: PERRLA, EOMI, Mucous Memb Moist/[place] Neck: Supple, No JVD, Other (Trach functioning) Lungs: Clear to Auscultation Heart: Regular Rate Abdomen: Normal Bowel Sounds, Soft, No Tenderness, Other (Peg tube in place HD catheter in left anterior chest) Extremities: No Edema Skin: Other (Stage 4 pressure sore sacrum) Neuro: Other (Generalized weakness Lower limbs >Upper and RT lower limb >left) Psych/Mental Status: Mental Status NL Results Lab Data Laboratory Tests 06/27/18 00:04: Glucometer 157H 06/27/18 05:39: Glucometer 169H 06/27/18 05:40: Sodium Level 134L, Potassium Level 3.8, Chloride Level 94L, Carbon Dioxide Level 27, Anion Gap 13, Blood Urea Nitrogen 69H, Creatinine 3.79H, Estimat Glomerular Filtration Rate 17, BUN/Creatinine Ratio 18, Glucose Level 165H, Calcium Level 10.8H 06/27/18 09:06: Glucometer 126H 06/27/18 15:34: Glucometer 89 06/27/18 17:56: Glucometer 111H 06/27/18 23:42: Glucometer 99 06/28/18 04:10: Sodium Level 136, Potassium Level 3.1L, Chloride Level 94L, Carbon Dioxide Level 33H, Anion Gap 9, Blood Urea Nitrogen 32H, Creatinine 2.43H, Estimat Glomerular Filtration Rate 28, BUN/Creatinine Ratio 13, Glucose Level 96, Calcium Level 9.8 06/28/18 11:38: Glucometer 205H 06/28/18 17:41: Glucometer 49*L 06/28/18 18:07: Glucometer 58*L 06/28/18 18:36: Glucometer 79 06/29/18 00:53: Glucometer 111H 06/29/18 06:20: Sodium Level 134L, Potassium Level 3.9, Chloride Level 94L, Carbon Dioxide Level 28, Anion Gap 12, Blood Urea Nitrogen 44H, Creatinine 3.20#H, Estimat Glomerular Filtration Rate 20, BUN/Creatinine Ratio 14, Glucose Level 146H, Calcium Level 10.1 06/29/18 06:22: Glucometer 117H 06/29/18 13:15: Glucometer 181H 06/29/18 18:03: Glucometer 164H Assessment/Plan Assessment and Plan 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
[2018-06-29] MEDS: POLYETHYLENE GLYCOL 17 GM (MIRALAX) PACK PEG SCH (19:41)
[2018-06-29] MEDS: ZOLPIDEM 5 MG (AMBIEN) TAB PEG SCH (20:59)
[2018-06-29] MEDS: MELATONIN 3 MG TABLET PEG SCH (21:00)
[2018-06-30] MEDS: NYSTATIN ORAL SUSP 5 ML UDC PO SCH ×5 (00:36→23:31)
[2018-06-30] MEDS: SUCRALFATE 1 GM (CARAFATE) TAB PEG SCH ×5 (00:37→23:30)
[2018-06-30] MEDS: predniSONE 10 MG TAB PEG SCH (05:44)
[2018-06-30] MEDS: ONDANSETRON 4 MG/2 ML (SDV) Z0FRAN IVP PRN ×3 (06:12→23:30)
[2018-06-30 06:16] VITALS: BP 130/70
[2018-06-30 06:27] LABS: CALCIUM 9.6 MG/DL (8.5-10.1); CREATININE SERUM 2.47 MG/DL (0.60-1.30); POTASSIUM 3.4 MMOL/L (3.6-5.0)
[2018-06-30] MEDS: inSUlin ASPART (NovoLOG) 1 UNIT/0.01 ML (CHARGE PER UNIT) SC SCH ×4 (06:35→23:34)
--- NOTE | 2018-06-30 07:32 | Pulmonary Progress Note ---
Subjective Time Seen by Provider: 07:31 Subjective/Events-last exam No complications noted. Pt is 100% on RA. Sepsis Event Evaluation Height, Weight, BMI Height: 5'11.00" Weight: 153lbs. 1.6oz. [id number]; 20.0 BMI Method:Stated Exam Exam Vital Signs Date Time Temp Pulse Resp B/P (MAP) Pulse Ox O2 Delivery O2 Flow Rate FiO2 06/30/18 06:16 97.8 81 18 130/70 (90) 100 Room Air 06/29/18 20:45 Room Air 06/29/18 20:17 97 Room Air 06/29/18 16:22 98.1 70 14 111/70 (84) 99 Room Air 06/29/18 11:00 Room Air I & O 06/30/18 07:00 Intake Total 1478 ml Output Total 250 ml Balance 1228 ml Height & Weight Height: 5'11.00" Weight: 153lbs. 1.6oz. [id number]; 20.0 BMI Method:Stated General Appearance: No Apparent Distress, WD/WN, Chronically ill, Cachetic HEENT: PERRL/EOMI, Normal ENT Inspection, Pharynx Normal Neck: Full Range of Motion, Supple, Other (tracheostomy tube in place.) Respiratory: Chest Non Tender, Lungs Clear, Normal Breath Sounds, No Accessory Muscle Use, No Respiratory Distress Cardiovascular: No Edema, No Gallop, No JVD, No Murmur, Normal Peripheral Pulses Capillary Refill: Less Than 3 Seconds Gastrointestinal: non tender Extremity: Normal Capillary Refill, Normal Inspection, Normal Range of Motion Neurologic/Psychiatric: Alert, Oriented x3 Skin: Normal Color, Warm/Dry Lymphatic: No Adenopathy Results Lab Laboratory Tests 06/29/18 06:20 06/30/18 05:45 Assessment/Plan Assessment/Plan S/p cardiac arrest with extended ventilator dependance and s/p tracheostomy s/p tracheostomy from prolonged ventilator dependance - ? of vocal chord paralysis per previous hospital records -Discussed with Dr. Morales. PT does have bilateral vocal cord paralysis. Pt will not tolerate not having tracheostomy. CAD s/p NE S/P severe sepsis and endocarditis S/p PEG tube ESRD with HD severe protein kwan malnutrition CRISTÓBAL MCKINNON DO Jun 30, 2018 07:32
[2018-06-30] MEDS: PANTOPRAZOLE 40 MG (PROTONIX) VIAL IV SCH ×2 (08:07→20:42)
[2018-06-30] MEDS: LACTOBACILLUS ACIDOPHILUS (PROBIOTIC) CAPSULE PEG SCH ×2 (08:08→20:47)
[2018-06-30] MEDS: METOCLOPRAMIDE 10MG/10ML ORAL SOL(REGLAN) UDC PEG SCH ×2 (08:08→20:57)
[2018-06-30] MEDS: buPROPion 100 MG (WELLBUTRIN) TAB PEG SCH ×2 (08:08→20:43)
[2018-06-30] MEDS: CARVEDILOL 12.5 MG (COREG) TABLET PEG SCH ×2 (08:08→20:46)
[2018-06-30] MEDS: FOLIC ACID 1 MG TAB PEG SCH (08:08)
--- NOTE | 2018-06-30 08:54 | Occupational Ther Daily Note ---
OT Current Status-Daily Note Subjective Pt sleeping in bed, woke to name. No c/o pain. Pt agreed to therapy. Mental Status/Objective Patient Orientation: Person, Place, Time, Situation Functional Becker Measure 0=Not Assessed/NA 4=Minimal Assistance 1=Total Assistance 5=Supervision or Setup 2=Maximal Assistance 6=Modified Becker 3=Moderate Assistance 7=Complete Becker Attachments: IV, PEG Tube, Other-See Comments (PICC) ADL-Treatment Pt ambulated using FWW with SBA to the toilet. Pt able to doff brief over hips needing Min A to remove brief from feet. Pt completes toilet hygiene in sitting. CGA, sit to stand for stability. Pt transferred to shower bench using FWW and grabbars for stability, SBA. Pt completes shower, SBA using AE to reach LE. Using grabbars pt SPT to chair, SBA. Clothing set up, at sitting position pt dons LE clothing using AE to reach LE's, SBA using FWW to hike pants over hips. Pt dons UE clothing, SBA . Pt dons L sock by self using AE. CGA, to help R LE heel over AE. Pt began feeling nauseas when leaning forward/backward for LE dressing, took rest break. In front of sink in sitting position, pt completes grooming and oral care, SBA. Pt takes increased time to complete ADLs. Functional Becker Measure 0=Not Assessed/NA 4=Minimal Assistance 1=Total Assistance 5=Supervision or Setup 2=Maximal Assistance 6=Modified [place] 3=Moderate Assistance 7=Complete IndependenceIRFPAI Quality Coding Scale 6 Independent with activity with or without an assistive device 5 Patient requires set up or clean up by helper. Patient completes activity by themselves 4 Supervision or touching assist (CGA). [place] provide cues , steadying assist 3 The helper provides less than half the effort to complete the activity 2 The helper provides more than half the effort to complete the activity 1 Dependent. The helper does all the effort to complete an activity 7 Patient refused to complete or attempt activity 9 The patient did not perform the activity before the current illness or injury 88 Not attempted due to Medical conditions or safety concerns Grooming (FIM): 6 Oral Hygiene (QC): 6 Bathing (FIM): 5 Bathing Location: L Arm, R Arm, L Upper Leg, R Upper Leg, L Lower Leg ( including foot), R Lower Leg (including foot), Chest, Abdomen, Buttocks, Perineal Area Shower/Bathe Self (QC): 5 Upper Body (FIM): 5 Upper Body Dressing (QC): 5 Lower Body Dressing (FIM): 4 Lower Body Dressing (QC): 4 On/Off Footwear (QC): 4 Toileting (FIM): 5 Toileting Hygiene (QC): 5 Transfers (B, C, W/C) (FIM): 5 Toilet/Commode Transfer (FIM): 4 Toilet Transfer (QC): 4 Shower Transfer(FIM): 5 Pt ambulates to therapy gym using FWW, SBA. Pt completed arm bike 15 min/ 15 berkowitz resistance increasing UE strength for activity tolerance and functional activities. Pt completed fine motor task with 1# wt attached to R/L UE increasing pinch strength and finger dexterity needed for daily functional tasks. Pt ambulated back to room using FWW, SBA. Sitting EOB going to supine position with SBA, pt experiences nausea. Pt took increased time due to decreased activity tolerance and rest breaks due to nausea. After therapy, pt lying in bed with call light/phone within reach. All needs met in room. OT Short Term Goals Short Term Goals Time Frame: Jul 06, 2018 Grooming(FIM): 5 Bathing(FIM): 4 Upper Body Dressing(FIM): 4 Lower Body Dressing(FIM): 4 Toileting(FIM): 4 Transfers (B,C,W/C) (FIM): 5 Toilet/Commode Transfer(FIM): 5 Shower Transfer(FIM): 4 Additional Short Term Goals: 1-Demonstrate ADL Tasks, 2-Verbalize Understanding , 3-ImproveStrength/Camryn 1=Demonstrate adherence to instructed precautions during ADL tasks. 2=Patient will verbalize/demonstrate understanding of assistive devices/ modifications for ADL. 3=Patient will improve strength/tolerance for activity to enable patient to perform ADL's. OT Open Soaper Tender Goals Mcc Goals Time Frame: Jul 20, 2018 Groomin Oral Hygiene (QC): 4 Bathing(FIM): 5 Shower/Bathe Self (QC): 4 Upper Body Dressing(FIM): 5 Upper Body Dressing (QC): 4 Lower Body Dressing(FIM): 5 Lower Body Dressing (QC): 4 On/Off Footwear (QC): 4 Toileting(FIM): 5 Toileting Hygiene (QC): 4 Transfers (B,C,W/C) (FIM): 6 Toilet/Commode Transfer(FIM): 6 Toilet/Commode Transfer (QC): 6 Shower Transfer(FIM): 5 Additional Goals: 1-Demonstrate ADL Tasks, 2-Verbalize Understanding, 3- ImproveStrength/Camryn 1=Demonstrate adherence to instructed precautions during ADL tasks. 2=Patient will verbalize/demonstrate understanding of assistive devices/ modifications for ADL. 3=Patient will improve strength/tolerance for activity to enable patient to perform ADL's. OT Education/Plan Discharge Recommendations Plan/Recommendations: Continue POC Treatment Plan/Plan of Care Patient would benefit from OT for education, treatment and training to promote independence in ADL's, mobility, safety and/or upper extremity function for ADL' s. Plan of Care: ADL Retraining, Functional Mobility, Group Exercise/Act as Ind, UE Funct Exercise/Act Treatment Duration: Jul 20, 2018 Frequency: At least 5 of 7 days/Wk (IRF) Estimated Hrs Per Day: 1.5 hours per day Agreement: Yes Rehab Potential: Fair Time/GCodes Start Time: 06:55 Stop Time: 08:30 Total Time Billed (hr/min): 95 Billed Treatment Time 1 visit- ADL 4 (50 min) EX 3 (45 min) VIPUL KIRK Jun 30, 2018 08:54
--- NOTE | 2018-06-30 09:25 | PM & R (SOAP) Progress Note ---
Subjective This was a face to face visit with the patient. Date Seen by Provider: Jun 30, 2018 Time Seen by Provider: 08:10 Subjective/Events-last exam Patient was seen in GYM this AM Patient SBA for trasfers Had one small emesis this am but in general doing better Accuchecks show better control and less episodes of Hypoglycemia K 3.4 will replace Review of Systems Gastrointestinal: Nausea, Vomiting Neurological: Weakness Objective Physician Exam Last Set of Vital Signs Vital Signs Date Time Temp Pulse Resp B/P (MAP) Pulse Ox O2 Delivery O2 Flow Rate FiO2 06/30/18 06:16 97.8 81 18 130/70 (90) 100 Room Air 06/25/18 21:27 21 06/24/18 01:40 6.00 Capillary Refill : Less Than 3 Seconds I&O Intake and Output 06/30/18 00:00 Intake Total 1503 ml Output Total 275 ml Balance 1228 ml Intake Oral 0 ml Tube Feeding 1263 ml Other 240 ml Output Urine Total 275 ml # Voids 1 # Bowel Movements 2 General: Alert, Oriented X3, Cooperative, No Acute Distress, Other (Afebrile P =89 RR 16 BP 106/76 02 sats 100%% RA) HEENT: PERRLA, EOMI, Mucous Memb Moist/[place] Neck: Supple, No JVD, Other (Trach functioning) Lungs: Clear to Auscultation Heart: Regular Rate Abdomen: Normal Bowel Sounds, Soft, No Tenderness, Other (Peg tube in place HD catheter in left anterior chest) Extremities: No Edema Skin: Other (Stage 4 pressure sore sacrum) Neuro: Other (Generalized weakness Lower limbs >Upper and RT lower limb >left) Psych/Mental Status: Mental Status NL Results Lab Data Laboratory Tests 06/27/18 15:34: Glucometer 89 06/27/18 17:56: Glucometer 111H 06/27/18 23:42: Glucometer 99 06/28/18 04:10: Sodium Level 136, Potassium Level 3.1L, Chloride Level 94L, Carbon Dioxide Level 33H, Anion Gap 9, Blood Urea Nitrogen 32H, Creatinine 2.43H, Estimat Glomerular Filtration Rate 28, BUN/Creatinine Ratio 13, Glucose Level 96, Calcium Level 9.8 06/28/18 11:38: Glucometer 205H 06/28/18 17:41: Glucometer 49*L 06/28/18 18:07: Glucometer 58*L 06/28/18 18:36: Glucometer 79 06/29/18 00:53: Glucometer 111H 06/29/18 06:20: Sodium Level 134L, Potassium Level 3.9, Chloride Level 94L, Carbon Dioxide Level 28, Anion Gap 12, Blood Urea Nitrogen 44H, Creatinine 3.20#H, Estimat Glomerular Filtration Rate 20, BUN/Creatinine Ratio 14, Glucose Level 146H, Calcium Level 10.1 06/29/18 06:22: Glucometer 117H 06/29/18 13:15: Glucometer 181H 06/29/18 18:03: Glucometer 164H 06/29/18 23:02: Glucometer 123H 06/30/18 05:45: Sodium Level 134L, Potassium Level 3.4L, Chloride Level 93L, Carbon Dioxide Level 33H, Anion Gap 8, Blood Urea Nitrogen 25H, Creatinine 2.47H, Estimat Glomerular Filtration Rate 27, BUN/Creatinine Ratio 10, Glucose Level 113H, Calcium Level 9.6 Assessment/Plan Assessment and Plan 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 Nausea/emesis improving DM better controlled with adjustment in meds Diarrhea improved Hypokalemia improving give another dose of K Vocal cord paralysis NPO on tube feeds Severe protein calorie malnutrition on Tube feeds Scaral pressure sore continue current care and f/u with DR Russell CAD s/p LA Anxiety improving Appreciate Behav health note ESRD on Dialysis TIW A FIB controlled with med Resp failure s/p trach Plan Continue PT/OT Replace K F/U with DR her prn appreciate his note F/U with DR russell wound care Next Team Conference 07-05-18 Adjst meds for N/V as needed Co-Morbidities that are continuing to impact the rehab process: (include details ) FISH MACIAS MD Jun 30, 2018 09:25
[2018-06-30] MEDS ORDERED: KCL 20 MEQ POWDER FOR ORAL SOLUTION PEG NR (09:30)
[2018-06-30] MEDS: ALPRAZolam 0.5 MG (XANAX) TAB PEG PRN (10:01)
[2018-06-30] MEDS: inSUlin DETERMIR 1 UNIT/0.01 ML (LEVEMIR) CHARGE PER UNIT SQ SCH (10:01)
--- NOTE | 2018-06-30 10:01 | Physical Therapy Daily Note ---
PT Daily Note-Current Subjective Pt. agrees to Rx. States he hasnt been home since December and has lost over 50 lbs. Pain Numeric Pain Scale: 4 Location: Medial Location Body Site: Sacrum Pain Description: Throbbing Comment: flat affect, low voice quality Mental Status Patient Orientation: Normal For Age Transfers Functional [place] Measure 0=Not Assessed/NA 4=Minimal Assistance 1=Total Assistance 5=Supervision or Setup 2=Maximal Assistance 6=Modified [place] 3=Moderate Assistance 7=Complete IndependenceIRFPAI Quality Coding Scale 6 Independent with activity with or without an assistive device 5 Patient requires set up or clean up by helper. Patient completes activity by themselves 4 Supervision or touching assist (CGA). [place] provide cues , steadying assist 3 The helper provides less than half the effort to complete the activity 2 The helper provides more than half the effort to complete the activity 1 Dependent. The helper does all the effort to complete an activity 7 Patient refused to complete or attempt activity 9 The patient did not perform the activity before the current illness or injury 88 Not attempted due to Medical conditions or safety concerns Transfers (B, C, W/C) (FIM): 6 Scootin Rollin Supine to/from Sit: 6 Sit to/from Stand: 6 Bed to/from Chair: 6 flat bed left and right approach all mod I Weight Bearing Right Lower Extremity: Right Full Weight Bearing Left Lower Extremity: Left Full Weight Bearing Gait Training Does the Patient Walk?: Yes Gait (FIM): 5 Distance (FIM): 3=150 ft (200x2) Gait Level of Assist: 5 Gait Persons Needed: 1 Gait Assistive Device: FWW assist for IV only, instructed in wider HELGA as pt. noted to crossover multiple times zulma with turns Exercises Supine Ex: Bridging, Ankle pumps (bilat HC stretches x 5 20s ea), Pelvic tilt, Rolling, Glut sets, Heel Slides, Short Arc Quads, Scooting, Straight leg raise, Hip abd/add Supine Reps: 20 Seated Therapy Exercises: Ankle pumps, Sit to stand, Long arc quads, Hip flexion Seated Reps: 15 side lying clam shells and hip abd with some assist x 12 NuStep Minutes: 10 NuStep Workload: 4 Assessment Current Status: Good Progress PT Short Term Goals Short Term Goals Time Frame: Jun 29, 2018 Transfers (B,C,W/C) (FIM): 5 Gait (FIM): 5 Distance (FIM): 3=150 ft Gait Distance Comment: 200' Gait Level of Assist: 5 Gait Assistive Device: FWW Wheelchair Distance: SEE PT GOALS PT Mcc Goals Apiculturist Goals PT Mcc Goals Time Frame: Jul 13, 2018 Transfers (B,C,W/C) (FIM): 6 Sit to Lying (QC): 6 Lying-Sitting on Side/Bed(QC): 6 Sit to Stand (QC): 6 Rollin Roll Left to Right (QC): 6 Chair/Ccx-lo-Zefaz Xfer(QC): 6 Car Transfer (QC): 6 Does the Patient Walk: Yes Gait (FIM): 6 Distance: SEE PT GOALS Walk 10 feet (QC): 6 Walk 10ft-Uneven Surface(QC): 6 Walk 50ft with 2 Turns (QC): 6 Walk 150 ft (QC): 6 Gait Level of Assist: 6 Gait Assistive Device: FWW Stairs (FIM): 5 (household exception) # of Steps: 4 1 Step (curb) (QC): 6 4 Steps (QC): 6 12 Steps (QC): 0 Picking up an Object (QC): 4 PT Plan Treatment/Plan Treatment Plan: Continue Plan of Care Treatment Plan: Bed Mobility, Concurrent Therapy, Education, Functional Activity Camryn, Functional Strength, Group Therapy, Gait, Safety, Therapeutic Exercise, Transfers Treatment Duration: Jul 13, 2018 Frequency: Modified Program (IRF) (due to dialysis) Estimated Hrs Per Day: 1.5 hours per day Patient and/or Family Agrees t: Yes Safety Risks/Education Patient Education: Gait Training, Transfer Techniques, Correct Positioning, Disease Process, Safety Issues Teaching Recipient: Patient Teaching Methods: Demonstration, Discussion Response to Teaching: Verbalize Understanding, Return Demonstration, Reinforcement Needed Time/GCodes Time In: 900 Time Out: 1000 Total Billed Treatment Time: 60 Total Billed Treatment 1,EX30m,GT15m,FA15m G Codes Necessary: DARYL Cain FISHING GUIDE Jun 30, 2018 10:01
--- NOTE | 2018-06-30 13:41 | Physical Therapy Daily Note ---
PT Daily Note-Current Subjective Pt. agrees to Rx. States he is slightly nauseous and needs rest breaks Pain Numeric Pain Scale: 0-No Pain Mental Status Patient Orientation: Normal For Age Attachments: IV Transfers Functional [place] Measure 0=Not Assessed/NA 4=Minimal Assistance 1=Total Assistance 5=Supervision or Setup 2=Maximal Assistance 6=Modified [place] 3=Moderate Assistance 7=Complete IndependenceIRFPAI Quality Coding Scale 6 Independent with activity with or without an assistive device 5 Patient requires set up or clean up by helper. Patient completes activity by themselves 4 Supervision or touching assist (CGA). [place] provide cues , steadying assist 3 The helper provides less than half the effort to complete the activity 2 The helper provides more than half the effort to complete the activity 1 Dependent. The helper does all the effort to complete an activity 7 Patient refused to complete or attempt activity 9 The patient did not perform the activity before the current illness or injury 88 Not attempted due to Medical conditions or safety concerns all SBA to Mod I Weight Bearing Right Lower Extremity: Right Full Weight Bearing Left Lower Extremity: Left Full Weight Bearing Gait Training FWW SBA, assist for IV, [id number], wanted to try to walk without his AFO, did well needed cues for foot clearance Exercises Standing: Hip Abduction, Hamstring curls, Heel/toe raises, Marching, Mini squats Standing Reps: 12 Assessment Current Status: Good Progress PT Short Term Goals Short Term Goals Time Frame: Jun 29, 2018 Transfers (B,C,W/C) (FIM): 5 Gait (FIM): 5 Distance (FIM): 3=150 ft Gait Distance Comment: 200' Gait Level of Assist: 5 Gait Assistive Device: FWW Wheelchair Distance: SEE PT GOALS PT Detention Goals Detention Goals PT Detention Goals Time Frame: Jul 13, 2018 Transfers (B,C,W/C) (FIM): 6 Sit to Lying (QC): 6 Lying-Sitting on Side/Bed(QC): 6 Sit to Stand (QC): 6 Rollin Roll Left to Right (QC): 6 Chair/Qqt-jt-Rrtlp Xfer(QC): 6 Car Transfer (QC): 6 Does the Patient Walk: Yes Gait (FIM): 6 Distance: SEE PT GOALS Walk 10 feet (QC): 6 Walk 10ft-Uneven Surface(QC): 6 Walk 50ft with 2 Turns (QC): 6 Walk 150 ft (QC): 6 Gait Level of Assist: 6 Gait Assistive Device: FWW Stairs (FIM): 5 (household exception) # of Steps: 4 1 Step (curb) (QC): 6 4 Steps (QC): 6 12 Steps (QC): 0 Picking up an Object (QC): 4 PT Plan Treatment/Plan Treatment Plan: Continue Plan of Care Treatment Plan: Bed Mobility, Concurrent Therapy, Education, Functional Activity Camryn, Functional Strength, Group Therapy, Gait, Safety, Therapeutic Exercise, Transfers Treatment Duration: Jul 13, 2018 Frequency: Modified Program (IRF) (due to dialysis) Estimated Hrs Per Day: 1.5 hours per day Patient and/or Family Agrees t: Yes Safety Risks/Education Patient Education: Gait Training, Transfer Techniques Time/GCodes Time In: 1300 Time Out: 1330 Total Billed Treatment Time: 30 Total Billed Treatment 1,GT15m,EX15m G Codes Necessary: DARYL Cain BRINE MAKER Jun 30, 2018 13:41
--- NOTE | 2018-06-30 13:54 | Speech Therapy Daily Note ---
Speech Daily Progress Note Subjective Date Seen by Provider: Jun 30, 2018 Time Seen by Provider: 13:40 Pt in bed. Pain Numeric Pain Scale: 0-No Pain Objective Reviewed the 2 new exercises. Pt able to perform independently. Pt has met his goal of being independent with his dysphagia. Was unable to get pt to be able to eat due to paralyzed vocal folds. Pt is dc'd from skilled ST. Assessment Assessment Current Status: Fair Progress Treatment Plan Discontinue ST (Pt met one of his goals.) Communication Comprehension: 6 Expression: 7 Social Cognition Social Interaction: 7 Problem Solvin Memory: 7 Speech Short Term Goals Short Term Goals Short Term Goals 1. Obtain information from [place] to facilitate goal planning for pt. 2. Trials by Speech only for safety of food texture. 3. Pt will complete dysphagia exercises with min assist. Time Frame-ST-2 weeks Speech Shelter Goals Electrical Engineering Professor Goals Pt will tolerate least restrictive diet without signs/symptoms of aspiration. Time Frame: 3-4 weeks Speech-Plan Patient/Family Goals Patient/Family Goals: to be able to eat and drink Treatment Plan Speech Therapy Treatment Plan: Discontinue ST Provided dc recommendations to pt. He acknowledged understanding and had questions which CAD APPLICATION SUPPORT SPECIALIST answered. Provided pt with another copy of his exercises. Treatment Duration: Jun 23, 2018 Frequency: Modified Program (IRF) (0) Estimated Hrs Per Day: Other (0) Rehab Potential: Fair Pt/Family Agrees to Plan: Yes Safety Risks/Education Teaching Recipient: Patient Teaching Methods: Handout, Discussion Response to Teaching: Verbalize Understanding Time Speech Therapy Time In: 13:40 Speech Therapy Time Out: 13:50 Total Billed Time: 10 Billed Treatment Time 1, DYST No LINA ZHOU Jun 30, 2018 13:54
--- NOTE | 2018-06-30 14:46 | Therapy Team Discharge Summary ---
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 Pt had a Todd trach and was eating ice chips. Upon evaluation pt's vocal folds are paralyzed despite having voicing. Attempts at thin liquids and pureed were tried. Pt demonstrated no signs/symptoms of aspiration for thin liquids but did on 2nd attempt of pureed (applesauce) with coughing. Further attempts were not attempted. Pt instructed in dysphagia exercises to attempt to get the vocal folds moving since they are paralyzed in the paramedian position. Pt is independent with his exercises and that is all ST could do for now. He is to return to see ENT in a few months to determine if there is any movement with his VFs. Pt is dc'd from skilled ST at this time. PT Senior Living Goals Student Specialist Goals PT Student Specialist Goals Time Frame: Jul 13, 2018 Transfers (B,C,W/C) (FIM): 6 Roll Left to Right (QC): 6 Sit to Lying (QC): 6 Lying-Sitting on Side/Bed(QC): 6 Sit to Stand (QC): 6 Chair/Std-rx-Dmlyd Xfer(QC): 6 Car Transfer (QC): 6 Does the Patient Walk: Yes Gait (FIM): 6 Distance: SEE PT GOALS Walk 10 feet (QC): 6 Walk 10ft-Uneven Surface(QC): 6 Walk 50ft with 2 Turns (QC): 6 Walk 150 ft (QC): 6 Gait Level of Assist: 6 Gait Assistive Device: FWW Stairs (FIM): 5 (household exception) # of Steps: 4 1 Step (curb) (QC): 6 4 Steps (QC): 6 12 Steps (QC): 0 Picking up an Object (QC): 4 OT Senior Living Goals Student Specialist Goals Time Frame: Jul 20, 2018 Oral Hygiene (QC): 4 Grooming(FIM): 5 Bathing(FIM): 5 Shower/Bathe Self (QC): 4 Upper Body Dressing(FIM): 5 Upper Body Dressing (QC): 4 Lower Body Dressing(FIM): 5 Lower Body Dressing (QC): 4 On/Off Footwear (QC): 4 Toileting(FIM): 5 Toileting Hygiene (QC): 4 Transfers (B,C,W/C) (FIM): 6 Toilet/Commode Transfer(FIM): 6 Toilet/Commode Transfer (QC): 6 Shower Transfer(FIM): 5 Additional Goals: 1-Demonstrate ADL Tasks, 2-Verbalize Understanding, 3- ImproveStrength/Camryn 1=Demonstrate adherence to instructed precautions during ADL tasks. 2=Patient will verbalize/demonstrate understanding of assistive devices/ modifications for ADL. 3=Patient will improve strength/tolerance for activity to enable patient to perform ADL's. Speech Student Specialist Goals Senior Living Goals Pt will tolerate least restrictive diet without signs/symptoms of aspiration. Time Frame: 3-4 weeks LINA ZHOU Jun 30, 2018 14:46
[2018-06-30] MEDS: ENOXAPARIN 30 MG/0.3 ML (LOVENOX) SYR SC SCH (16:30)
[2018-06-30] MEDS: PROMETHAZINE INJ 25 MG/ML (PHENERGAN) AMP IVP PRN (17:29)
[2018-06-30 18:28] VITALS: BP 165/83
[2018-06-30] MEDS: POLYETHYLENE GLYCOL 17 GM (MIRALAX) PACK PEG SCH (19:08)
[2018-06-30] MEDS: ZOLPIDEM 5 MG (AMBIEN) TAB PEG SCH (20:46)
[2018-06-30] MEDS: MELATONIN 3 MG TABLET PEG SCH (20:46)
[2018-07-01] MEDS: inSUlin ASPART (NovoLOG) 1 UNIT/0.01 ML (CHARGE PER UNIT) SC SCH ×4 (05:20→23:07)
[2018-07-01] MEDS: NYSTATIN ORAL SUSP 5 ML UDC PO SCH ×4 (05:22→23:00)
[2018-07-01] MEDS: predniSONE 10 MG TAB PEG SCH (05:22)
[2018-07-01] MEDS: SUCRALFATE 1 GM (CARAFATE) TAB PEG SCH ×4 (05:22→22:59)
[2018-07-01 05:55] LABS: CALCIUM 10.3 MG/DL (8.5-10.1); CREATININE SERUM 3.19 MG/DL (0.60-1.30); POTASSIUM 3.7 MMOL/L (3.6-5.0)
[2018-07-01 05:59] VITALS: BP 142/84
[2018-07-01] MEDS: ALPRAZolam 0.5 MG (XANAX) TAB PEG PRN ×3 (06:58→22:59)
[2018-07-01] MEDS: ONDANSETRON 4 MG/2 ML (SDV) Z0FRAN IVP PRN ×2 (06:58→23:00)
[2018-07-01] MEDS: inSUlin DETERMIR 1 UNIT/0.01 ML (LEVEMIR) CHARGE PER UNIT SQ SCH ×2 (07:42→09:16)
[2018-07-01] MEDS: LACTOBACILLUS ACIDOPHILUS (PROBIOTIC) CAPSULE PEG SCH ×2 (07:48→20:23)
[2018-07-01] MEDS: PANTOPRAZOLE 40 MG (PROTONIX) VIAL IV SCH ×2 (07:48→20:23)
[2018-07-01] MEDS: METOCLOPRAMIDE 10MG/10ML ORAL SOL(REGLAN) UDC PEG SCH ×2 (07:49→20:23)
[2018-07-01] MEDS: buPROPion 100 MG (WELLBUTRIN) TAB PEG SCH ×2 (07:49→20:23)
[2018-07-01] MEDS: CARVEDILOL 12.5 MG (COREG) TABLET PEG SCH ×2 (07:49→20:23)
[2018-07-01] MEDS: FOLIC ACID 1 MG TAB PEG SCH (07:49)
--- NOTE | 2018-07-01 08:29 | PM & R (SOAP) Progress Note ---
Subjective This was a face to face visit with the patient. Date Seen by Provider: Jul 01, 2018 Time Seen by Provider: 07:35 Subjective/Events-last exam Patient was seen in his room this AM Off for Diaylisis later today Discussed with RN Patient still with some diarrhea-will order Questran Accucheks continue to be low -will decrease Insulin see ordere Patiewnt SBA to Modified Independent for transfer patient lying on side off of pressure sore Date Identified: Jul 01, 2018 Time Identified: 07:35 Medication Intervention: Questran for diarrhea Decrease Insulin as per above Review of Systems Gastrointestinal: Nausea, Diarrhea Musculoskeletal: back pain Neurological: Weakness Objective Physician Exam Last Set of Vital Signs Vital Signs Date Time Temp Pulse Resp B/P (MAP) Pulse Ox O2 Delivery O2 Flow Rate FiO2 07/01/18 05:59 97.0 80 14 142/84 (103) 100 Room Air 06/30/18 18:28 6.00 6.00 06/25/18 21:27 21 Capillary Refill : Less Than 3 Seconds I&O Intake and Output 07/01/18 00:00 Intake Total 1526 ml Output Total 350 ml Balance 1176 ml Intake Oral 0 ml Tube Feeding 1206 ml Other 320 ml Output Urine Total 250 ml Emesis 100 ml # Bowel Movements 6 # Emeses 5 General: Alert, Oriented X3, Cooperative, No Acute Distress, Other (Afebrile P =89 RR 16 BP 106/76 02 sats 100%% RA) HEENT: PERRLA, EOMI, Mucous Memb Moist/[place] Neck: Supple, No JVD, Other (Trach functioning) Lungs: Clear to Auscultation Heart: Regular Rate Abdomen: Normal Bowel Sounds, Soft, No Tenderness, Other (Peg tube in place HD catheter in left anterior chest) Extremities: No Edema Skin: Other (Stage 4 pressure sore sacrum) Neuro: Other (Generalized weakness Lower limbs >Upper and RT lower limb >left) Psych/Mental Status: Mental Status NL Results Lab Data Laboratory Tests 06/28/18 11:38: Glucometer 205H 06/28/18 17:41: Glucometer 49*L 06/28/18 18:07: Glucometer 58*L 06/28/18 18:36: Glucometer 79 06/29/18 00:53: Glucometer 111H 06/29/18 06:20: Sodium Level 134L, Potassium Level 3.9, Chloride Level 94L, Carbon Dioxide Level 28, Anion Gap 12, Blood Urea Nitrogen 44H, Creatinine 3.20#H, Estimat Glomerular Filtration Rate 20, BUN/Creatinine Ratio 14, Glucose Level 146H, Calcium Level 10.1 06/29/18 06:22: Glucometer 117H 06/29/18 13:15: Glucometer 181H 06/29/18 18:03: Glucometer 164H 06/29/18 23:02: Glucometer 123H 06/30/18 05:45: Sodium Level 134L, Potassium Level 3.4L, Chloride Level 93L, Carbon Dioxide Level 33H, Anion Gap 8, Blood Urea Nitrogen 25H, Creatinine 2.47H, Estimat Glomerular Filtration Rate 27, BUN/Creatinine Ratio 10, Glucose Level 113H, Calcium Level 9.6 06/30/18 11:49: Glucometer 218H 06/30/18 17:52: Glucometer 60*L 06/30/18 18:52: Glucometer 74 06/30/18 20:56: Glucometer 83 06/30/18 23:34: Glucometer 90 07/01/18 05:18: Glucometer 148H 07/01/18 05:20: Sodium Level 134L, Potassium Level 3.7, Chloride Level 94L, Carbon Dioxide Level 30, Anion Gap 10, Blood Urea Nitrogen 29H, Creatinine 3.19#H, Estimat Glomerular Filtration Rate 20, BUN/Creatinine Ratio 9, Glucose Level 136H, Calcium Level 10.3H Assessment/Plan Assessment and Plan 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
--- NOTE | 2018-07-01 09:44 | Physical Therapy Progress Note ---
Therapy Progress Note Pt off the unit this date for dialysis. Pt left unit around 800. No treatment rendered. VIPUL SHI PT Jul 01, 2018 09:44
[2018-07-01] MEDS: SCOPOLAMINE 1.5 MG (TRANSDERM-SCOP) PATCH TOP SCH (13:38)
[2018-07-01] MEDS: CHOLESTYRAMINE 4 GM (QUESTRAN LITE, PREVALITE) PKT PEG SCH (13:38)
[2018-07-01] MEDS: ENOXAPARIN 30 MG/0.3 ML (LOVENOX) SYR SC SCH (15:01)
[2018-07-01 18:16] VITALS: BP 109/66
[2018-07-01] MEDS: POLYETHYLENE GLYCOL 17 GM (MIRALAX) PACK PEG SCH (19:49)
[2018-07-01] MEDS: MELATONIN 3 MG TABLET PEG SCH (20:23)
[2018-07-01] MEDS: ZOLPIDEM 5 MG (AMBIEN) TAB PEG SCH (20:23)
[2018-07-02 05:05] VITALS: BP 165/82
[2018-07-02] MEDS: inSUlin ASPART (NovoLOG) 1 UNIT/0.01 ML (CHARGE PER UNIT) SC SCH ×4 (05:07→23:23)
[2018-07-02 06:18] LABS: CALCIUM 9.8 MG/DL (8.5-10.1); CREATININE SERUM 2.5 MG/DL (0.60-1.30); POTASSIUM 3.7 MMOL/L (3.6-5.0)
[2018-07-02] MEDS: NYSTATIN ORAL SUSP 5 ML UDC PO SCH ×4 (06:27→23:13)
[2018-07-02] MEDS: SUCRALFATE 1 GM (CARAFATE) TAB PEG SCH ×4 (06:27→23:13)
[2018-07-02] MEDS: predniSONE 10 MG TAB PEG SCH (06:27)
[2018-07-02] MEDS: ALPRAZolam 0.5 MG (XANAX) TAB PEG PRN ×2 (06:27→17:08)
[2018-07-02] MEDS: FOLIC ACID 1 MG TAB PEG SCH (08:56)
[2018-07-02] MEDS: PANTOPRAZOLE 40 MG (PROTONIX) VIAL IV SCH ×2 (08:56→21:10)
[2018-07-02] MEDS: CARVEDILOL 12.5 MG (COREG) TABLET PEG SCH ×2 (08:56→21:10)
[2018-07-02] MEDS: buPROPion 100 MG (WELLBUTRIN) TAB PEG SCH ×2 (08:56→21:10)
[2018-07-02] MEDS: CHOLESTYRAMINE 4 GM (QUESTRAN LITE, PREVALITE) PKT PEG SCH ×3 (08:56→21:10)
[2018-07-02] MEDS: METOCLOPRAMIDE 10MG/10ML ORAL SOL(REGLAN) UDC PEG SCH ×2 (08:56→21:11)
[2018-07-02] MEDS: LACTOBACILLUS ACIDOPHILUS (PROBIOTIC) CAPSULE PEG SCH ×2 (08:57→21:11)
[2018-07-02] MEDS: inSUlin DETERMIR 1 UNIT/0.01 ML (LEVEMIR) CHARGE PER UNIT SQ SCH (08:57)
--- NOTE | 2018-07-02 12:05 | Consultation-Hospitalist ---
HPI History of Present Illness: HPI/Chief Complaint CC: Debility following critical illness HPI: This is a 57-year-old white male who presented to inpatient rehabilitation for severe debility following the critical illness that started out with a rectal abscess and cellulitis and turned into a significant critical illness including now renal failure on hemodialysis and trach placed due to recent ventilator dependent respiratory failure. He currently has a PEG tube and feedings are being tolerated the loose stools persist the Questran dosed once daily yesterday has help so I will increase that to 3 times a day today. He is asking when his trach can be removed and Dr. Morales resorting on consultation since that will be deferred to Dr. Morales. Patient denies any pain currently. I checked his meds and current labs and hospital course records. Source: patient Exam Limitations: no limitations Date Seen 07/02/18 Attending Physician Luis M Craft MD PCP Zeus Del Rosario DO Referring Physician Date of Admission Jun 22, 2018 at 10:00 Home Medications & Allergies Home Medications Reviewed patient Home Medication Reconciliation performed by pharmacy medication reconciliations electrician technician and/or nursing. Patients Allergies have been reviewed. Allergies Allergies Coded Allergies No Known Drug Allergies (Unverified12/12/15) Past Fpiugjs-Qufnmr-Tzvlmm Hx Past Med/Social Hx: Reviewed Nursing Past Med/Soc Hx, Reviewed and Corrections made Patient Social History Employed/Student: employed Alcohol Use: Denies Use Recreational Drug Use: No Smoking Status: Unknown if Ever Smoked Former Smoker, Quit: Dec 19, 2017 Type Used: Cigarettes Physical Abuse Screen: No Sexual Abuse: No Recent Foreign Travel: No Contact w/other who traveled: No Recent Hopitalizations: Yes Recent Infectious Disease Expo: No Immunizations Up To Date Tetanus Booster (TDap): More than 5yrs Seasonal Allergies Seasonal Allergies: No Past Medical History Surgeries: Tonsillectomy Cardiac: Heart Murmur, Hypertension Genitourinary: Renal Failure Musculoskeletal: Foot Drop Endocrine: Diabetes, Non-Insulin dep Psychosocial: Depression Family History Alzheimer's disease 19 MOTHER Diabetes mellitus 19 FATHER No Pertinent Family Hx, Hypertension Review of Systems Constitutional: see HPI, malaise, weakness EENTM: no symptoms reported Respiratory: no symptoms reported Cardiovascular: no symptoms reported Gastrointestinal: no symptoms reported Genitourinary: no symptoms reported Musculoskeletal: back pain Skin: see HPI Psychiatric/Neurological: Depressed All Other Systems Reviewed Negative Unless Noted: Yes Physical Exam Physical Exam Vital Signs Vital Signs - First Documented 06/26/18 05:08 Temp 97.5 Pulse 81 Resp 16 B/P (MAP) 134/63 (86) Pulse Ox 97 O2 Delivery Room Air Capillary Refill : Less Than 3 Seconds Height, Weight, BMI Height: 5'11.00" Weight: 152lbs. 4.8oz. 69.182980ys; 20.0 BMI Method:Stated General Appearance: No Apparent Distress, WD/WN, Chronically ill, Thin Eyes: Bilateral Eye Normal Inspection, Bilateral Eye PERRL HEENT: PERRL/EOMI, Normal ENT Inspection, Pharynx Normal Neck: Full Range of Motion, Normal Inspection, Non Tender, Supple, Carotid Bruit, Other (trach in place) Respiratory: Chest Non Tender, Lungs Clear, Normal Breath Sounds, No Accessory Muscle Use, No Respiratory Distress Cardiovascular: Regular Rate, Rhythm, No Edema, No Gallop, No JVD, No Murmur, Normal Peripheral Pulses Gastrointestinal: Normal Bowel Sounds, No Organomegaly, No Pulsatile Mass, Non Tender, Soft Back: Normal Inspection, No CVA Tenderness, No Vertebral Tenderness Extremity: Normal Capillary Refill, Normal Inspection, Normal Range of Motion, Non Tender, No Calf Tenderness, No Pedal Edema Neurologic/Psychiatric: Alert, Oriented x3, No Motor/Sensory Deficits, Depressed Affect Skin: Normal Color, Warm/Dry Lymphatic: No Adenopathy Results Results/Procedures Labs Laboratory Tests 07/01/18 05:20 07/02/18 05:50 Patient resulted labs reviewed. 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 transplanted heart: [place] heart Associated angina: without angina Qualified Codes: I25.10 - Atherosclerotic heart disease of [place] coronary artery without angina pectoris (5) Hx of CABG Status: Chronic (6) History of heart valve replacement Status: Chronic (7) Diabetes Status: Chronic Qualifiers: Diabetes mellitus type: type 2 Diabetes mellitus jail insulin use: with shearing machine tender use Diabetes mellitus complication status: with circulatory complication Diabetes mellitus complication detail: with other circulatory complications Qualified Codes: E11.59 - Type 2 diabetes mellitus with other circulatory complications; Z79.4 - slip filler (current) use of insulin (8) Acute renal failure on dialysis Status: Chronic (9) Anemia Status: Chronic Qualifiers: Anemia type: due to chronic kidney disease Chronic kidney disease stage: on chronic dialysis Qualified Codes: N18.6 - End stage renal disease; D63.1 - Anemia in chronic kidney disease; Z99.2 - Dependence on renal dialysis (10) Depression Status: Chronic Qualifiers: Depression Type: unspecified Qualified Codes: F32.9 - Major depressive disorder, single episode, unspecified (11) Ischiorectal abscess Status: Resolved (12) Endocarditis Status: Resolved Qualifiers: Endocarditis type: infective Infective endocarditis organism: bacterial Chronicity: unspecified Qualified Codes: I33.0 - Acute and subacute infective endocarditis Clinical Quality Measures DVT/VTE Risk/Contraindication: Risk Factor Score Per Nursin RFS Level Per Nursing on Admit: 1=Low/No VTE PPX MARTHA MADDEN DO Jul 02, 2018 12:05
[2018-07-02] MEDS: ENOXAPARIN 30 MG/0.3 ML (LOVENOX) SYR SC SCH (16:30)
[2018-07-02] MEDS: PROMETHAZINE INJ 25 MG/ML (PHENERGAN) AMP IVP PRN (17:12)
[2018-07-02 18:41] VITALS: BP 133/80
[2018-07-02] MEDS: MELATONIN 3 MG TABLET PEG SCH (21:10)
[2018-07-02] MEDS: ZOLPIDEM 5 MG (AMBIEN) TAB PEG SCH (21:10)
[2018-07-02] MEDS: POLYETHYLENE GLYCOL 17 GM (MIRALAX) PACK PEG SCH (21:11)
[2018-07-02 21:15] VITALS: BP 143/75
[2018-07-03 05:02] VITALS: BP 129/70
[2018-07-03] MEDS: SUCRALFATE 1 GM (CARAFATE) TAB PEG SCH ×3 (05:44→17:49)
[2018-07-03] MEDS: NYSTATIN ORAL SUSP 5 ML UDC PO SCH ×3 (05:44→17:49)
[2018-07-03] MEDS: predniSONE 10 MG TAB PEG SCH (06:02)
[2018-07-03 06:28] LABS: CALCIUM 10.1 MG/DL (8.5-10.1); CREATININE SERUM 2.96 MG/DL (0.60-1.30); POTASSIUM 3.4 MMOL/L (3.6-5.0)
[2018-07-03] MEDS: inSUlin ASPART (NovoLOG) 1 UNIT/0.01 ML (CHARGE PER UNIT) SC SCH ×3 (06:37→17:53)
[2018-07-03] MEDS: buPROPion 100 MG (WELLBUTRIN) TAB PEG SCH ×2 (08:10→21:10)
[2018-07-03] MEDS: CHOLESTYRAMINE 4 GM (QUESTRAN LITE, PREVALITE) PKT PEG SCH ×3 (08:10→21:10)
[2018-07-03] MEDS: CARVEDILOL 12.5 MG (COREG) TABLET PEG SCH ×2 (08:10→21:12)
[2018-07-03] MEDS: LACTOBACILLUS ACIDOPHILUS (PROBIOTIC) CAPSULE PEG SCH ×2 (08:10→21:10)
[2018-07-03] MEDS: PANTOPRAZOLE 40 MG (PROTONIX) VIAL IV SCH ×2 (08:10→21:11)
[2018-07-03] MEDS: FOLIC ACID 1 MG TAB PEG SCH (08:10)
[2018-07-03] MEDS: METOCLOPRAMIDE 10MG/10ML ORAL SOL(REGLAN) UDC PEG SCH ×2 (08:11→21:10)
[2018-07-03] MEDS: inSUlin DETERMIR 1 UNIT/0.01 ML (LEVEMIR) CHARGE PER UNIT SQ SCH (08:25)
--- NOTE | 2018-07-03 08:57 | Physical Therapy Daily Note ---
PT Daily Note-Current Subjective pt in bed pre tx, agrees to PT, no pain to report, Appearance pt in bed post tx, w/ phone, call light, tray, all needs met Mental Status Patient Orientation: Person, Place, Time Attachments: PEG Tube Transfers Functional [place] Measure 0=Not Assessed/NA 4=Minimal Assistance 1=Total Assistance 5=Supervision or Setup 2=Maximal Assistance 6=Modified [place] 3=Moderate Assistance 7=Complete IndependenceIRFPAI Quality Coding Scale 6 Independent with activity with or without an assistive device 5 Patient requires set up or clean up by helper. Patient completes activity by themselves 4 Supervision or touching assist (CGA). [place] provide cues , steadying assist 3 The helper provides less than half the effort to complete the activity 2 The helper provides more than half the effort to complete the activity 1 Dependent. The helper does all the effort to complete an activity 7 Patient refused to complete or attempt activity 9 The patient did not perform the activity before the current illness or injury 88 Not attempted due to Medical conditions or safety concerns Transfers (B, C, W/C) (FIM): 5 Rollin Supine to/from Sit: 5 Sit to/from Stand: 5 SBA w/ all transfers, pt does well pushing off/reaching for chair/bed during sit <->stand Weight Bearing Right Lower Extremity: Right Full Weight Bearing Left Lower Extremity: Left Full Weight Bearing Gait Training Does the Patient Walk?: Yes Gait (FIM): 5 Distance: 200',150',250' Gait Level of Assist: 5 Gait Persons Needed: 1 Gait Assistive Device: FWW pt ambulates to/from gym w/ SBA using FWW, gait is steady, pt demonstrates wider HELGA w/ better stability during turns and improved knee extension, uses right AFO Exercises Seated Therapy Exercises: Sit to stand Seated Reps: 10 NuStep Minutes: 15 NuStep Workload: 4 Treatments bed mobility and transfer training, gait training, endurance training Assessment Current Status: Fair Progress improved stability and distance during ambulation, increased independence w/ transfers pt given medication during treatment requiring bed mobility and transfers so pt could receive medication in supine. Patient is still nauseated and vomited in basin in the therapy gym but was able to continue therapy. PT Short Term Goals Short Term Goals Time Frame: Jun 29, 2018 Transfers (B,C,W/C) (FIM): 5 Gait (FIM): 5 Distance (FIM): 3=150 ft Gait Distance Comment: 200' Gait Level of Assist: 5 Gait Assistive Device: FWW Wheelchair Distance: SEE PT GOALS PT Strap Cutter Goals Strap Cutter Goals PT Nursing Home Goals Time Frame: Jul 13, 2018 Transfers (B,C,W/C) (FIM): 6 Sit to Lying (QC): 6 Lying-Sitting on Side/Bed(QC): 6 Sit to Stand (QC): 6 Rollin Roll Left to Right (QC): 6 Chair/Tex-lc-Cgiwl Xfer(QC): 6 Car Transfer (QC): 6 Does the Patient Walk: Yes Gait (FIM): 6 Distance: SEE PT GOALS Walk 10 feet (QC): 6 Walk 10ft-Uneven Surface(QC): 6 Walk 50ft with 2 Turns (QC): 6 Walk 150 ft (QC): 6 Gait Level of Assist: 6 Gait Assistive Device: FWW Stairs (FIM): 5 (household exception) # of Steps: 4 1 Step (curb) (QC): 6 4 Steps (QC): 6 12 Steps (QC): 0 Picking up an Object (QC): 4 PT Plan Problem List Problem List: Activity Tolerance, Functional Strength, Safety, Balance, Gait, Transfer, Bed Mobility Treatment/Plan Treatment Plan: Continue Plan of Care Treatment Plan: Bed Mobility, Concurrent Therapy, Education, Functional Activity [place], Functional Strength, Group Therapy, Gait, Safety, Therapeutic Exercise, Transfers Treatment Duration: Jul 13, 2018 Frequency: Modified Program (IRF) (due to dialysis) Estimated Hrs Per Day: 1.5 hours per day Patient and/or Family Agrees t: Yes Safety Risks/Education Patient Education: Gait Training, Transfer Techniques, Correct Positioning, Safety Issues Teaching Recipient: Patient Teaching Methods: Demonstration, Discussion Response to Teaching: Reinforcement Needed Time/GCodes Time In: 0800 Time Out: 0900 Total Billed Treatment Time: 60 Total Billed Treatment 1 visit GT 30' EX 15' FA 15' DONNELL MA PT Jul 03, 2018 08:57
[2018-07-03] MEDS: DARBEPOETIN 100 MCG/ML (ARANESP) 1 ML VIAL SC SCH (09:31)
--- NOTE | 2018-07-03 09:37 | Occupational Ther Daily Note ---
OT Current Status-Daily Note Subjective Pt lying in bed, sleeping. Awoke to name. No c/o pain. Pt agreed to therapy. Mental Status/Objective Patient Orientation: Person, Place, Time, Situation Functional [place] Measure 0=Not Assessed/NA 4=Minimal Assistance 1=Total Assistance 5=Supervision or Setup 2=Maximal Assistance 6=Modified [place] 3=Moderate Assistance 7=Complete [place] Attachments: IV, PEG Tube, Other-See Comments (PICC) ADL-Treatment Pt able to go supine to EOB with HOB raised using arm rails for leverage. Pt ambulated using FWW, SBA to bathroom. Pt completes shower using grabbars, shower bench, long handled sponge and hand held shower, SBA. Pt transfers to chair using grabbars, SBA. Clothing set up, pt able to don LE clothing using AE in sitting position, SBA to hike pants over hips using FWW. Pt able to don socks using AE. Mod A to don shoes due to pt's inability to reach LE. Set up, pt able to don UE clothing at sitting position. Sitting in front of sink, pt completes grooming/oral hygiene. Assist needed to manipulate IV pole and tubing. Pt needed no rest breaks and had no complaints of nausea throughout ADLs but takes increased time due to low activity tolerance. Functional [place] Measure 0=Not Assessed/NA 4=Minimal Assistance 1=Total Assistance 5=Supervision or Setup 2=Maximal Assistance 6=Modified [place] 3=Moderate Assistance 7=Complete IndependenceIRFPAI Quality Coding Scale 6 Independent with activity with or without an assistive device 5 Patient requires set up or clean up by helper. Patient completes activity by themselves 4 Supervision or touching assist (CGA). [place] provide cues , steadying assist 3 The helper provides less than half the effort to complete the activity 2 The helper provides more than half the effort to complete the activity 1 Dependent. The helper does all the effort to complete an activity 7 Patient refused to complete or attempt activity 9 The patient did not perform the activity before the current illness or injury 88 Not attempted due to Medical conditions or safety concerns Bathing (FIM): 5 Bathing Location: L Arm, R Arm, L Upper Leg, R Upper Leg, L Lower Leg ( including foot), R Lower Leg (including foot), Chest, Abdomen, Buttocks, Perineal Area Shower/Bathe Self (QC): 4 Upper Body (FIM): 5 Upper Body Dressing (QC): 5 Lower Body Dressing (FIM): 4 Lower Body Dressing (QC): 3 On/Off Footwear (QC): 3 Toileting (FIM): 5 Toileting Hygiene (QC): 4 Transfers (B, C, W/C) (FIM): 5 Toilet/Commode Transfer (FIM): 5 Toilet Transfer (QC): 4 Shower Transfer(FIM): 5 Other Treatment Pt ambulated to therapy gym using FWW, SBA. Pt completed arm bike 15 min/ 20 berkowitz resistance increasing activity tolerance and UE strength needed for daily functional activity, no rest breaks needed and no complaints of nausea. Pt ambulated back to room using FWW. After therapy, pt lying in bed with call light /phone within reach. All needs met in room. OT Short Term Goals Short Term Goals Time Frame: Jul 06, 2018 Grooming(FIM): 5 Bathing(FIM): 4 Upper Body Dressing(FIM): 4 Lower Body Dressing(FIM): 4 Toileting(FIM): 4 Transfers (B,C,W/C) (FIM): 5 Toilet/Commode Transfer(FIM): 5 Shower Transfer(FIM): 4 Additional Short Term Goals: 1-Demonstrate ADL Tasks, 2-Verbalize Understanding , 3-ImproveStrength/[place] 1=Demonstrate adherence to instructed precautions during ADL tasks. 2=Patient will verbalize/demonstrate understanding of assistive devices/ modifications for ADL. 3=Patient will improve strength/tolerance for activity to enable patient to perform ADL's. OT Halfway Goals Ancient Art Curator Goals Time Frame: Jul 20, 2018 Groomin Oral Hygiene (QC): 4 Bathing(FIM): 5 Shower/Bathe Self (QC): 4 Upper Body Dressing(FIM): 5 Upper Body Dressing (QC): 4 Lower Body Dressing(FIM): 5 Lower Body Dressing (QC): 4 On/Off Footwear (QC): 4 Toileting(FIM): 5 Toileting Hygiene (QC): 4 Transfers (B,C,W/C) (FIM): 6 Toilet/Commode Transfer(FIM): 6 Toilet/Commode Transfer (QC): 6 Shower Transfer(FIM): 5 Additional Goals: 1-Demonstrate ADL Tasks, 2-Verbalize Understanding, 3- ImproveStrength/[place] 1=Demonstrate adherence to instructed precautions during ADL tasks. 2=Patient will verbalize/demonstrate understanding of assistive devices/ modifications for ADL. 3=Patient will improve strength/tolerance for activity to enable patient to perform ADL's. OT Education/Plan Discharge Recommendations Plan/Recommendations: Continue POC Treatment Plan/Plan of Care Patient would benefit from OT for education, treatment and training to promote independence in ADL's, mobility, safety and/or upper extremity function for ADL' s. Plan of Care: ADL Retraining, Functional Mobility, Group Exercise/Act as Ind, UE Funct Exercise/Act Treatment Duration: Jul 20, 2018 Frequency: At least 5 of 7 days/Wk (IRF) Estimated Hrs Per Day: 1.5 hours per day Agreement: Yes Rehab Potential: Fair Time/GCodes Start Time: 07:00 Stop Time: 08:00 Total Time Billed (hr/min): 60 Billed Treatment Time 1 visit- ADL 3 (40 min) Ex 1 (20 min) VIPUL KIRK Jul 03, 2018 09:37
--- NOTE | 2018-07-03 13:29 | PM & R (SOAP) Progress Note ---
Subjective This was a face to face visit with the patient. Date Seen by Provider: Jul 03, 2018 Time Seen by Provider: 13:00 Subjective/Events-last exam Patient was seen in his rrom this AM Patient SBA for transfers Patient reports that Nausea and emesis still present but only in AM Diarrheas improved with Questran added to Tube feeds Date Identified: Jul 03, 2018 Time Identified: 13:00 Medication Intervention: Patient doing better with meds adjusted for darrhea and N/V.Accucheks better with Insulin decreased Review of Systems Gastrointestinal: Nausea, Vomiting, Diarrhea Musculoskeletal: back pain Neurological: Weakness Objective Physician Exam Last Set of Vital Signs Vital Signs Date Time Temp Pulse Resp B/P (MAP) Pulse Ox O2 Delivery O2 Flow Rate FiO2 07/03/18 09:00 Room Air 07/03/18 05:02 98.1 76 18 129/70 (89) 98 06/30/18 18:28 Capillary Refill : Less Than 3 Seconds I&O Intake and Output 07/03/18 00:00 Intake Total 1569 ml Output Total 100 ml Balance 1469 ml Intake Oral 0 ml Tube Feeding 1249 ml Other 320 ml Output Urine Total 100 ml # Bowel Movements 5 General: Alert, Oriented X3, Cooperative, No Acute Distress, Other (Afebrile P =89 RR 16 BP 106/76 02 sats 100%% RA) HEENT: PERRLA, EOMI, Mucous Memb Moist/[place] Neck: Supple, No JVD, Other (Trach functioning) Lungs: Clear to Auscultation Heart: Regular Rate Abdomen: Normal Bowel Sounds, Soft, No Tenderness, Other (Peg tube in place HD catheter in left anterior chest) Extremities: No Edema Skin: Other (Stage 4 pressure sore sacrum) Neuro: Other (Generalized weakness Lower limbs >Upper and RT lower limb >left) Psych/Mental Status: Mental Status NL Results Lab Data Laboratory Tests 06/30/18 17:52: Glucometer 60*L 06/30/18 18:52: Glucometer 74 06/30/18 20:56: Glucometer 83 06/30/18 23:34: Glucometer 90 07/01/18 05:18: Glucometer 148H 07/01/18 05:20: Sodium Level 134L, Potassium Level 3.7, Chloride Level 94L, Carbon Dioxide Level 30, Anion Gap 10, Blood Urea Nitrogen 29H, Creatinine 3.19#H, Estimat Glomerular Filtration Rate 20, BUN/Creatinine Ratio 9, Glucose Level 136H, Calcium Level 10.3H 07/01/18 13:22: Glucometer 150H 07/01/18 17:57: Glucometer 142H 07/01/18 23:05: Glucometer 99 07/02/18 04:58: Glucometer 130H 07/02/18 05:50: Sodium Level 134L, Potassium Level 3.7, Chloride Level 93L, Carbon Dioxide Level 31, Anion Gap 10, Blood Urea Nitrogen 16, Creatinine 2.50#H, Estimat Glomerular Filtration Rate 27, BUN/Creatinine Ratio 6, Glucose Level 121H, Calcium Level 9.8 07/02/18 12:22: Glucometer 270H 07/02/18 17:18: Glucometer 110 07/02/18 23:22: Glucometer 128H 07/03/18 05:45: Sodium Level 135, Potassium Level 3.4L, Chloride Level 96L, Carbon Dioxide Level 31, Anion Gap 8, Blood Urea Nitrogen 21H, Creatinine 2.96#H, Estimat Glomerular Filtration Rate 22, BUN/Creatinine Ratio 7, Glucose Level 98, Calcium Level 10.1 07/03/18 12:18: Glucometer 201H Assessment/Plan Assessment and Plan 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
[2018-07-03] MEDS: ONDANSETRON 4 MG/2 ML (SDV) Z0FRAN IVP PRN ×2 (13:38→17:48)
[2018-07-03] MEDS: ALPRAZolam 0.5 MG (XANAX) TAB PEG PRN ×2 (13:40→22:18)
--- NOTE | 2018-07-03 14:18 | Occupational Ther Daily Note ---
OT Current Status-Daily Note Subjective Pt alert, lying in bed. No c/o pain. Pt agrees to therapy. Mental Status/Objective Patient Orientation: Person, Place, Time, Situation Functional [place] Measure 0=Not Assessed/NA 4=Minimal Assistance 1=Total Assistance 5=Supervision or Setup 2=Maximal Assistance 6=Modified [place] 3=Moderate Assistance 7=Complete [place] Attachments: IV, PEG Tube, Other-See Comments (PICC) ADL-Treatment Functional [place] Measure 0=Not Assessed/NA 4=Minimal Assistance 1=Total Assistance 5=Supervision or Setup 2=Maximal Assistance 6=Modified [place] 3=Moderate Assistance 7=Complete IndependenceIRFPAI Quality Coding Scale 6 Independent with activity with or without an assistive device 5 Patient requires set up or clean up by helper. Patient completes activity by themselves 4 Supervision or touching assist (CGA). [place] provide cues , steadying assist 3 The helper provides less than half the effort to complete the activity 2 The helper provides more than half the effort to complete the activity 1 Dependent. The helper does all the effort to complete an activity 7 Patient refused to complete or attempt activity 9 The patient did not perform the activity before the current illness or injury 88 Not attempted due to Medical conditions or safety concerns Transfers (B, C, W/C) (FIM): 5 Other Treatment Pt able to go from supine to EOB with HOB raised using arm rails for leverage. Pt transfers to w/c using FWW for stability, SBA. Pt maneuvered w/c throughout hospital working on a variety of surfaces and inclines to increase activity tolerance and UE strength needed for daily functional tasks. Pt required multiple recovery breaks. After therapy, pt lying in bed with call light/phone within reach. All needs met in room. OT Short Term Goals Short Term Goals Time Frame: Jul 06, 2018 Grooming(FIM): 5 Bathing(FIM): 4 Upper Body Dressing(FIM): 4 Lower Body Dressing(FIM): 4 Toileting(FIM): 4 Transfers (B,C,W/C) (FIM): 5 Toilet/Commode Transfer(FIM): 5 Shower Transfer(FIM): 4 Additional Short Term Goals: 1-Demonstrate ADL Tasks, 2-Verbalize Understanding , 3-ImproveStrength/[place] 1=Demonstrate adherence to instructed precautions during ADL tasks. 2=Patient will verbalize/demonstrate understanding of assistive devices/ modifications for ADL. 3=Patient will improve strength/tolerance for activity to enable patient to perform ADL's. OT Meat Washer Goals Custodial Goals Time Frame: Jul 20, 2018 Groomin Oral Hygiene (QC): 4 Bathing(FIM): 5 Shower/Bathe Self (QC): 4 Upper Body Dressing(FIM): 5 Upper Body Dressing (QC): 4 Lower Body Dressing(FIM): 5 Lower Body Dressing (QC): 4 On/Off Footwear (QC): 4 Toileting(FIM): 5 Toileting Hygiene (QC): 4 Transfers (B,C,W/C) (FIM): 6 Toilet/Commode Transfer(FIM): 6 Toilet/Commode Transfer (QC): 6 Shower Transfer(FIM): 5 Additional Goals: 1-Demonstrate ADL Tasks, 2-Verbalize Understanding, 3- ImproveStrength/Camryn 1=Demonstrate adherence to instructed precautions during ADL tasks. 2=Patient will verbalize/demonstrate understanding of assistive devices/ modifications for ADL. 3=Patient will improve strength/tolerance for activity to enable patient to perform ADL's. OT Education/Plan Discharge Recommendations Plan/Recommendations: Continue POC Treatment Plan/Plan of Care Patient would benefit from OT for education, treatment and training to promote independence in ADL's, mobility, safety and/or upper extremity function for ADL' s. Plan of Care: ADL Retraining, Functional Mobility, Group Exercise/Act as Ind, UE Funct Exercise/Act Treatment Duration: Jul 20, 2018 Frequency: At least 5 of 7 days/Wk (IRF) Estimated Hrs Per Day: 1.5 hours per day Agreement: Yes Rehab Potential: Fair Time/GCodes Start Time: 11:15 Stop Time: 12:00 Total Time Billed (hr/min): 45 Billed Treatment Time 1 visit- FA 3 (45 min) VIPUL KIRK Jul 03, 2018 14:18
--- NOTE | 2018-07-03 14:52 | Physical Therapy Daily Note ---
PT Daily Note-Current Subjective pt in bed pre tx, agrees to PT, no pain to report Appearance pt in bed post tx, w/ phone, call light, tray, all needs met Mental Status Patient Orientation: Normal For Age Attachments: PEG Tube Transfers Functional [place] Measure 0=Not Assessed/NA 4=Minimal Assistance 1=Total Assistance 5=Supervision or Setup 2=Maximal Assistance 6=Modified [place] 3=Moderate Assistance 7=Complete IndependenceIRFPAI Quality Coding Scale 6 Independent with activity with or without an assistive device 5 Patient requires set up or clean up by helper. Patient completes activity by themselves 4 Supervision or touching assist (CGA). [place] provide cues , steadying assist 3 The helper provides less than half the effort to complete the activity 2 The helper provides more than half the effort to complete the activity 1 Dependent. The helper does all the effort to complete an activity 7 Patient refused to complete or attempt activity 9 The patient did not perform the activity before the current illness or injury 88 Not attempted due to Medical conditions or safety concerns Transfers (B, C, W/C) (FIM): 5 Rollin Supine to/from Sit: 5 Sit to/from Stand: 5 SBA for all transfers Weight Bearing Right Lower Extremity: Right Full Weight Bearing Left Lower Extremity: Left Full Weight Bearing Gait Training Does the Patient Walk?: Yes Gait (FIM): 5 Distance: 150'x2 Gait Level of Assist: 5 Gait Persons Needed: 1 Gait Assistive Device: FWW pt ambulates to/from gym w/ FWW and SBA, pt wears R AFO Exercises Standing: Side steps, Step-ups Standing Reps: 20 step ups and side steps on airex pad in parallel bars Treatments gait training, balance training, functional strengthening Assessment Current Status: Fair Progress improved endurance and balance, pt very nauseous and vomited during treatment, but was able to continue PT Short Term Goals Short Term Goals Time Frame: Jun 29, 2018 Transfers (B,C,W/C) (FIM): 5 Gait (FIM): 5 Distance (FIM): 3=150 ft Gait Distance Comment: 200' Gait Level of Assist: 5 Gait Assistive Device: FWW Wheelchair Distance: SEE PT GOALS PT Software Build Engineer Goals Senior Care Goals PT Software Build Engineer Goals Time Frame: Jul 13, 2018 Transfers (B,C,W/C) (FIM): 6 Sit to Lying (QC): 6 Lying-Sitting on Side/Bed(QC): 6 Sit to Stand (QC): 6 Rollin Roll Left to Right (QC): 6 Chair/Azv-nd-Biggi Xfer(QC): 6 Car Transfer (QC): 6 Does the Patient Walk: Yes Gait (FIM): 6 Distance: SEE PT GOALS Walk 10 feet (QC): 6 Walk 10ft-Uneven Surface(QC): 6 Walk 50ft with 2 Turns (QC): 6 Walk 150 ft (QC): 6 Gait Level of Assist: 6 Gait Assistive Device: FWW Stairs (FIM): 5 (household exception) # of Steps: 4 1 Step (curb) (QC): 6 4 Steps (QC): 6 12 Steps (QC): 0 Picking up an Object (QC): 4 PT Plan Problem List Problem List: Activity Tolerance, Functional Strength, Safety, Balance, Gait, Transfer, Bed Mobility Treatment/Plan Treatment Plan: Continue Plan of Care Treatment Plan: Bed Mobility, Concurrent Therapy, Education, Functional Activity Camryn, Functional Strength, Group Therapy, Gait, Safety, Therapeutic Exercise, Transfers Treatment Duration: Jul 13, 2018 Frequency: Modified Program (IRF) (due to dialysis) Estimated Hrs Per Day: 1.5 hours per day Patient and/or Family Agrees t: Yes Safety Risks/Education Patient Education: Gait Training, Transfer Techniques, Correct Positioning, Safety Issues Teaching Recipient: Patient Teaching Methods: Demonstration, Discussion Response to Teaching: Reinforcement Needed Time/GCodes Time In: 1300 Time Out: 1330 Total Billed Treatment Time: 30 Total Billed Treatment 1 visit GT 15' NM 15' JOHN MOYER PT Jul 03, 2018 14:52
[2018-07-03] MEDS: ENOXAPARIN 30 MG/0.3 ML (LOVENOX) SYR SC SCH (16:07)
[2018-07-03 17:07] VITALS: BP 133/76
[2018-07-03] MEDS: ZOLPIDEM 5 MG (AMBIEN) TAB PEG SCH (21:11)
[2018-07-03] MEDS: POLYETHYLENE GLYCOL 17 GM (MIRALAX) PACK PEG SCH (21:11)
[2018-07-03] MEDS: MELATONIN 3 MG TABLET PEG SCH (21:11)
[2018-07-04] MEDS: SUCRALFATE 1 GM (CARAFATE) TAB PEG SCH ×5 (00:10→23:49)
[2018-07-04] MEDS: inSUlin ASPART (NovoLOG) 1 UNIT/0.01 ML (CHARGE PER UNIT) SC SCH ×5 (00:10→23:49)
[2018-07-04] MEDS: NYSTATIN ORAL SUSP 5 ML UDC PO SCH ×5 (00:10→23:49)
[2018-07-04 04:50] LABS: CREATININE SERUM 3.26 MG/DL (0.60-1.30); POTASSIUM 4.4 MMOL/L (3.6-5.0)
[2018-07-04 06:00] VITALS: BP 138/80
[2018-07-04] MEDS: predniSONE 10 MG TAB PEG SCH (07:03)
[2018-07-04] MEDS: ONDANSETRON 4 MG/2 ML (SDV) Z0FRAN IVP PRN ×2 (07:04→15:26)
[2018-07-04] MEDS: inSUlin DETERMIR 1 UNIT/0.01 ML (LEVEMIR) CHARGE PER UNIT SQ SCH (09:00)
[2018-07-04] MEDS: CHOLESTYRAMINE 4 GM (QUESTRAN LITE, PREVALITE) PKT PEG SCH ×3 (09:00→21:47)
[2018-07-04 11:55] VITALS: BP 129/91
[2018-07-04] MEDS: PANTOPRAZOLE 40 MG (PROTONIX) VIAL IV SCH ×2 (12:09→22:04)
[2018-07-04] MEDS: SCOPOLAMINE 1.5 MG (TRANSDERM-SCOP) PATCH TOP SCH (12:09)
[2018-07-04] MEDS: buPROPion 100 MG (WELLBUTRIN) TAB PEG SCH ×2 (12:10→21:46)
[2018-07-04] MEDS: LACTOBACILLUS ACIDOPHILUS (PROBIOTIC) CAPSULE PEG SCH ×2 (12:10→21:46)
[2018-07-04] MEDS: FOLIC ACID 1 MG TAB PEG SCH (12:11)
[2018-07-04] MEDS: METOCLOPRAMIDE 10MG/10ML ORAL SOL(REGLAN) UDC PEG SCH ×2 (12:11→21:47)
[2018-07-04] MEDS: CARVEDILOL 12.5 MG (COREG) TABLET PEG SCH ×2 (12:12→21:46)
[2018-07-04] MEDS: ALPRAZolam 0.5 MG (XANAX) TAB PEG PRN ×2 (12:13→21:46)
--- NOTE | 2018-07-04 13:04 | Occupational Ther Daily Note ---
OT Current Status-Daily Note Subjective Pt back from dialysis. OT/PT co-treat for skilled care and decreased activity tolerance. Pt agrees to therapy. No c/o pain at this time. Pt states that he feels anxious, nrsg notified, Xanex given per nrsg. Mental Status/Objective Patient Orientation: Person, Place, Time, Situation Functional [place] Measure 0=Not Assessed/NA 4=Minimal Assistance 1=Total Assistance 5=Supervision or Setup 2=Maximal Assistance 6=Modified [place] 3=Moderate Assistance 7=Complete [place] Attachments: IV, PEG Tube, Other-See Comments (PICC) ADL-Treatment Pt ambulated using FWW to bathroom, SBA. Using FWW for stability in transfers with SBA, pt able to cleanse self and manipulate clothing with SBA. Pt ambulated back to therapy gym using FWW with SBA. Functional [place] Measure 0=Not Assessed/NA 4=Minimal Assistance 1=Total Assistance 5=Supervision or Setup 2=Maximal Assistance 6=Modified [place] 3=Moderate Assistance 7=Complete IndependenceIRFPAI Quality Coding Scale 6 Independent with activity with or without an assistive device 5 Patient requires set up or clean up by helper. Patient completes activity by themselves 4 Supervision or touching assist (CGA). [place] provide cues , steadying assist 3 The helper provides less than half the effort to complete the activity 2 The helper provides more than half the effort to complete the activity 1 Dependent. The helper does all the effort to complete an activity 7 Patient refused to complete or attempt activity 9 The patient did not perform the activity before the current illness or injury 88 Not attempted due to Medical conditions or safety concerns Toileting (FIM): 5 Toileting Hygiene (QC): 4 Transfers (B, C, W/C) (FIM): 5 Toilet/Commode Transfer (FIM): 5 Toilet Transfer (QC): 4 Other Treatment PT worked on car transfers, transfers, ambulation, balance and LE strengthening. OT worked on UE strengthening, reaching grasping for daily functional tasks and fine motor tasks. Pt maneuvered w/c around hospital practicing with different surfaces and incline/declines increasing activity tolerance and UE strength. Pt completed alternating arm exercises for 15 min/no resistance and 2 UE exercises/10x/3sets increasing UE strength needed for functional daily activities. Simulated kitchen tasks in standing reaching up and at placing in designated areas increasing activity tolerance and dynamic standing balance. Fine motor activity completed to increase pinch/field attendant strength. Pt took increased time to complete tasks, taking multiple rest breaks. Pt complained of nausea 3x, though never vomiting. After therapy, pt ambulated back to room using FWW, therapists offered to take pt to restroom, pt declined. Pt lying in bed with call light/phone within reach. All needs met in room. OT Short Term Goals Short Term Goals Time Frame: Jul 06, 2018 Grooming(FIM): 5 Bathing(FIM): 4 Upper Body Dressing(FIM): 4 Lower Body Dressing(FIM): 4 Toileting(FIM): 4 Transfers (B,C,W/C) (FIM): 5 Toilet/Commode Transfer(FIM): 5 Shower Transfer(FIM): 4 Additional Short Term Goals: 1-Demonstrate ADL Tasks, 2-Verbalize Understanding , 3-ImproveStrength/[place] 1=Demonstrate adherence to instructed precautions during ADL tasks. 2=Patient will verbalize/demonstrate understanding of assistive devices/ modifications for ADL. 3=Patient will improve strength/tolerance for activity to enable patient to perform ADL's. OT Distance Learning Program Coordinator Goals Care Home Goals Time Frame: Jul 20, 2018 Groomin Oral Hygiene (QC): 4 Bathing(FIM): 5 Shower/Bathe Self (QC): 4 Upper Body Dressing(FIM): 5 Upper Body Dressing (QC): 4 Lower Body Dressing(FIM): 5 Lower Body Dressing (QC): 4 On/Off Footwear (QC): 4 Toileting(FIM): 5 Toileting Hygiene (QC): 4 Transfers (B,C,W/C) (FIM): 6 Toilet/Commode Transfer(FIM): 6 Toilet/Commode Transfer (QC): 6 Shower Transfer(FIM): 5 Additional Goals: 1-Demonstrate ADL Tasks, 2-Verbalize Understanding, 3- ImproveStrength/Camryn 1=Demonstrate adherence to instructed precautions during ADL tasks. 2=Patient will verbalize/demonstrate understanding of assistive devices/ modifications for ADL. 3=Patient will improve strength/tolerance for activity to enable patient to perform ADL's. OT Education/Plan Discharge Recommendations Plan/Recommendations: Continue POC Treatment Plan/Plan of Care Patient would benefit from OT for education, treatment and training to promote independence in ADL's, mobility, safety and/or upper extremity function for ADL' s. Plan of Care: ADL Retraining, Functional Mobility, Group Exercise/Act as Ind, UE Funct Exercise/Act Treatment Duration: Jul 20, 2018 Frequency: At least 5 of 7 days/Wk (IRF) Estimated Hrs Per Day: 1.5 hours per day Agreement: Yes Rehab Potential: Fair Time/GCodes Start Time: 11:40 Stop Time: 13:10 Total Time Billed (hr/min): 90 Billed Treatment Time 1 visit- EX 6 (90min)- co-treat all time VIPUL KIRK Jul 04, 2018 13:04
--- NOTE | 2018-07-04 13:07 | Physical Therapy Daily Note ---
PT Daily Note-Current Subjective pt returning from dialysis pre tx, agrees to PT, no pain to report, OT to co- treat Appearance pt in bed post tx, w/ phone, call light, tray, all needs met Mental Status Patient Orientation: Normal For Age Attachments: PEG Tube Transfers Functional [place] Measure 0=Not Assessed/NA 4=Minimal Assistance 1=Total Assistance 5=Supervision or Setup 2=Maximal Assistance 6=Modified [place] 3=Moderate Assistance 7=Complete IndependenceIRFPAI Quality Coding Scale 6 Independent with activity with or without an assistive device 5 Patient requires set up or clean up by helper. Patient completes activity by themselves 4 Supervision or touching assist (CGA). [place] provide cues , steadying assist 3 The helper provides less than half the effort to complete the activity 2 The helper provides more than half the effort to complete the activity 1 Dependent. The helper does all the effort to complete an activity 7 Patient refused to complete or attempt activity 9 The patient did not perform the activity before the current illness or injury 88 Not attempted due to Medical conditions or safety concerns Transfers (B, C, W/C) (FIM): 5 Supine to/from Sit: 5 Sit to/from Stand: 5 SBA w/ all transfers, pt has improved w/ tube/line management Weight Bearing Right Lower Extremity: Right Full Weight Bearing Left Lower Extremity: Left Full Weight Bearing Gait Training Does the Patient Walk?: Yes Gait (FIM): 5 Distance: 150'x3, 60' Gait Level of Assist: 5 Gait Persons Needed: 1 Gait Assistive Device: FWW pt ambulates to/from gym w/ FWW and SBA, gait is steady and pt demonstrates increased distance and stride length Wheelchair Training Does the Pt Use a Wheelchair?: Yes Wheelchair (FIM): 4 Distance: 250',150'x2 Wheelchair Level of Assist: 4 Type of Wheelchair: Manual pt used w/c from car up/down incline and to gym w/ CGA Exercises Seated Therapy Exercises: Ankle pumps, Long arc quads, Hip flexion Seated Reps: 20 Standing: Step-ups Standing Reps: 10 step ups onto pink step x10 NuStep Minutes: 15 NuStep Workload: 3 Assessment Current Status: Fair Progress improved mobility and endurance PT Short Term Goals Short Term Goals Time Frame: Jun 29, 2018 Transfers (B,C,W/C) (FIM): 5 Gait (FIM): 5 Distance (FIM): 3=150 ft Gait Distance Comment: 200' Gait Level of Assist: 5 Gait Assistive Device: FWW Wheelchair Distance: SEE PT GOALS PT Fpc Goals Fpc Goals PT Studio Operations Manager Goals Time Frame: Jul 13, 2018 Transfers (B,C,W/C) (FIM): 6 Sit to Lying (QC): 6 Lying-Sitting on Side/Bed(QC): 6 Sit to Stand (QC): 6 Rollin Roll Left to Right (QC): 6 Chair/[place] Xfer(QC): 6 Car Transfer (QC): 6 Does the Patient Walk: Yes Gait (FIM): 6 Distance: SEE PT GOALS Walk 10 feet (QC): 6 Walk 10ft-Uneven Surface(QC): 6 Walk 50ft with 2 Turns (QC): 6 Walk 150 ft (QC): 6 Gait Level of Assist: 6 Gait Assistive Device: FWW Stairs (FIM): 5 (household exception) # of Steps: 4 1 Step (curb) (QC): 6 4 Steps (QC): 6 12 Steps (QC): 0 Picking up an Object (QC): 4 PT Plan Problem List Problem List: Activity Tolerance, Functional Strength, Safety, Balance, Gait, Transfer, Bed Mobility Treatment/Plan Treatment Plan: Continue Plan of Care Treatment Plan: Bed Mobility, Concurrent Therapy, Education, Functional Activity [place], Functional Strength, Group Therapy, Gait, Safety, Therapeutic Exercise, Transfers Treatment Duration: Jul 13, 2018 Frequency: Modified Program (IRF) (due to dialysis) Estimated Hrs Per Day: 1.5 hours per day Patient and/or Family Agrees t: Yes Safety Risks/Education Patient Education: Gait Training, Correct Positioning, W/C Management, Safety Issues Teaching Recipient: Patient Teaching Methods: Demonstration, Discussion Response to Teaching: Reinforcement Needed Time/GCodes Time In: 1140 Time Out: 1310 Total Billed Treatment Time: 90 Total Billed Treatment 1 visit GT 25' WCH 15' EX 50' Co-treat w/ OT 90'. OT worked on UE strength and coordination, PT worked on LE strengthening and mobility. OT and PT worked together due to increased pt fatigue after dialysis, and overall decreased in functional mobility. PT and OT co-treated for the whole 90 min. DONNELL MA PT Jul 04, 2018 13:07
--- NOTE | 2018-07-04 13:15 | PM & R (SOAP) Progress Note ---
Subjective This was a face to face visit with the patient. Date Seen by Provider: Jul 04, 2018 Time Seen by Provider: 12:50 Subjective/Events-last exam Patient was seen in GYM this afternoon Tolerated dialysis well but AM Insulin held Discussed with RN Patient SBA for transfers Date Identified: Jul 04, 2018 Time Identified: 12:45 Medication Intervention: AM insulin to be held on Dialysis days Review of Systems General: Other (anxiety) Neurological: Weakness Objective Physician Exam Last Set of Vital Signs Vital Signs Date Time Temp Pulse Resp B/P (MAP) Pulse Ox O2 Delivery O2 Flow Rate FiO2 07/04/18 06:00 97.2 67 16 138/80 (99) 100 Room Air 06/30/18 18:28 Capillary Refill : Less Than 3 Seconds I&O Intake and Output 07/04/18 00:00 Intake Total 2020 ml Output Total 750 ml Balance 1270 ml Intake Oral 0 ml Tube Feeding 1265 ml Other 755 ml Output Urine Total 750 ml # Voids 2 # Bowel Movements 5 # [place] 2 General: Alert, Oriented X3, Cooperative, No Acute Distress, Other (Afebrile P =89 RR 16 BP 106/76 02 sats 100%% RA) HEENT: PERRLA, EOMI, Mucous Memb Moist/[place] Neck: Supple, No JVD, Other (Trach functioning) Lungs: Clear to Auscultation Heart: Regular Rate Abdomen: Normal Bowel Sounds, Soft, No Tenderness, Other (Peg tube in place HD catheter in left anterior chest) Extremities: No Edema Skin: Other (Stage 4 pressure sore sacrum) Neuro: Other (Generalized weakness Lower limbs >Upper and RT lower limb >left) Psych/Mental Status: Mental Status NL Results Lab Data Laboratory Tests 07/01/18 13:22: Glucometer 150H 07/01/18 17:57: Glucometer 142H 07/01/18 23:05: Glucometer 99 07/02/18 04:58: Glucometer 130H 07/02/18 05:50: Sodium Level 134L, Potassium Level 3.7, Chloride Level 93L, Carbon Dioxide Level 31, Anion Gap 10, Blood Urea Nitrogen 16, Creatinine 2.50#H, Estimat Glomerular Filtration Rate 27, BUN/Creatinine Ratio 6, Glucose Level 121H, Calcium Level 9.8 07/02/18 12:22: Glucometer 270H 07/02/18 17:18: Glucometer 110 07/02/18 23:22: Glucometer 128H 07/03/18 05:45: Sodium Level 135, Potassium Level 3.4L, Chloride Level 96L, Carbon Dioxide Level 31, Anion Gap 8, Blood Urea Nitrogen 21H, Creatinine 2.96#H, Estimat Glomerular Filtration Rate 22, BUN/Creatinine Ratio 7, Glucose Level 98, Calcium Level 10.1 07/03/18 12:18: Glucometer 201H 07/03/18 17:53: Glucometer 96 07/03/18 23:55: Glucometer 95 07/04/18 04:25: Sodium Level 136, Potassium Level 4.4, Chloride Level 97L, Carbon Dioxide Level 31, Anion Gap 8, Blood Urea Nitrogen 31H, Creatinine 3.26H, Estimat Glomerular Filtration Rate 20, BUN/Creatinine Ratio 10, Glucose Level 102, Calcium Level 10.0 07/04/18 11:57: Glucometer 148H Assessment/Plan Assessment and Plan 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
[2018-07-04] MEDS: ENOXAPARIN 30 MG/0.3 ML (LOVENOX) SYR SC SCH (15:26)
[2018-07-04 16:50] VITALS: BP 119/73
[2018-07-04] MEDS: ZOLPIDEM 5 MG (AMBIEN) TAB PEG SCH (21:46)
[2018-07-04] MEDS: MELATONIN 3 MG TABLET PEG SCH (21:47)
[2018-07-04] MEDS: POLYETHYLENE GLYCOL 17 GM (MIRALAX) PACK PEG SCH (21:58)
[2018-07-05 05:07] VITALS: BP 111/71
[2018-07-05] MEDS: inSUlin ASPART (NovoLOG) 1 UNIT/0.01 ML (CHARGE PER UNIT) SC SCH ×3 (05:43→18:16)
[2018-07-05 06:00] VITALS: BP 127/73
[2018-07-05] MEDS: NYSTATIN ORAL SUSP 5 ML UDC PO SCH ×3 (06:29→17:47)
[2018-07-05] MEDS: predniSONE 10 MG TAB PEG SCH (06:29)
[2018-07-05] MEDS: SUCRALFATE 1 GM (CARAFATE) TAB PEG SCH ×3 (06:29→17:47)
--- NOTE | 2018-07-05 08:31 | PM & R (SOAP) Progress Note ---
Subjective This was a face to face visit with the patient. Date Seen by Provider: Jul 05, 2018 Time Seen by Provider: 07:55 Subjective/Events-last exam Patient was seen in his room this AM Patient SBA for transfers N/V and diarrheas improved with adjustment of meds AM Insulin being held on Dialysis days Date Identified: Jul 05, 2018 Time Identified: 07:55 Medication Intervention: N/V diarrhea and DM all better with adjustmet in fredy ss per above Review of Systems Neurological: Weakness Objective Physician Exam Last Set of Vital Signs Vital Signs Date Time Temp Pulse Resp B/P (MAP) Pulse Ox O2 Delivery O2 Flow Rate FiO2 07/05/18 05:07 97.9 84 16 111/71 (84) 100 Room Air 06/30/18 18:28 Capillary Refill : Less Than 3 Seconds I&O Intake and Output 07/05/18 00:00 Intake Total 2063 ml Output Total 100 ml Balance 1963 ml Intake Oral 0 ml Tube Feeding 1678 ml Other 385 ml Output Urine Total 100 ml # Voids 3 # Bowel Movements 4 General: Alert, Oriented X3, Cooperative, No Acute Distress, Other (Afebrile P =89 RR 16 BP 106/76 02 sats 100%% RA) HEENT: PERRLA, EOMI, Mucous Memb Moist/[place] Neck: Supple, No JVD, Other (Trach functioning) Lungs: Clear to Auscultation Heart: Regular Rate Abdomen: Normal Bowel Sounds, Soft, No Tenderness, Other (Peg tube in place HD catheter in left anterior chest) Extremities: No Edema Skin: Other (Stage 4 pressure sore sacrum) Neuro: Other (Generalized weakness Lower limbs >Upper and RT lower limb >left) Psych/Mental Status: Mental Status NL Results Lab Data Laboratory Tests 07/02/18 12:22: Glucometer 270H 07/02/18 17:18: Glucometer 110 07/02/18 23:22: Glucometer 128H 07/03/18 05:45: Sodium Level 135, Potassium Level 3.4L, Chloride Level 96L, Carbon Dioxide Level 31, Anion Gap 8, Blood Urea Nitrogen 21H, Creatinine 2.96#H, Estimat Glomerular Filtration Rate 22, BUN/Creatinine Ratio 7, Glucose Level 98, Calcium Level 10.1 07/03/18 12:18: Glucometer 201H 07/03/18 17:53: Glucometer 96 07/03/18 23:55: Glucometer 95 07/04/18 04:25: Sodium Level 136, Potassium Level 4.4, Chloride Level 97L, Carbon Dioxide Level 31, Anion Gap 8, Blood Urea Nitrogen 31H, Creatinine 3.26H, Estimat Glomerular Filtration Rate 20, BUN/Creatinine Ratio 10, Glucose Level 102, Calcium Level 10.0 07/04/18 11:57: Glucometer 148H 07/04/18 18:36: Glucometer 102 07/04/18 23:47: Glucometer 129H 07/05/18 05:27: Glucometer 118H Assessment/Plan Assessment and Plan 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 N/V improved with adjustment in meds Diarrhea improved with addition of Questran to Tube feeds DM with hypoglycemia improved with adjustment in dosing of Insulin Hypokalemia improved Vocal cord paralysis NPO on tube feeds Severe protein malnutrition on tube feeds Scaral pressure sore Topical care and and pressure relief CAD s/p DC Anxiety meds adjusted A FIB controlled with med ESRD on Dialysis TIW Plan Continue PT/OT/Wound care and Tube feeds Team Conference later today see report for full functional update and POC and ELOS Adjust meds for N/V/Diarrhea and DM as needed Co-Morbidities that are continuing to impact the rehab process: (include details ) FISH MACIAS MD Jul 05, 2018 08:31
--- NOTE | 2018-07-05 08:59 | Physical Therapy Daily Note ---
PT Daily Note-Current Subjective pt in bed pre tx, agrees to PT, no pain to report, pt needs assistance getting dressed Appearance pt in bed post tx, w/ phone, call light, tray, all needs met Mental Status Patient Orientation: Normal For Age Attachments: PEG Tube Transfers Functional [place] Measure 0=Not Assessed/NA 4=Minimal Assistance 1=Total Assistance 5=Supervision or Setup 2=Maximal Assistance 6=Modified [place] 3=Moderate Assistance 7=Complete IndependenceIRFPAI Quality Coding Scale 6 Independent with activity with or without an assistive device 5 Patient requires set up or clean up by helper. Patient completes activity by themselves 4 Supervision or touching assist (CGA). [place] provide cues , steadying assist 3 The helper provides less than half the effort to complete the activity 2 The helper provides more than half the effort to complete the activity 1 Dependent. The helper does all the effort to complete an activity 7 Patient refused to complete or attempt activity 9 The patient did not perform the activity before the current illness or injury 88 Not attempted due to Medical conditions or safety concerns Transfers (B, C, W/C) (FIM): 5 Scootin Rollin Supine to/from Sit: 6 Sit to/from Stand: 5 Bed to/from Chair: 5 SBA w/ all transfers, bed mobility mod I Weight Bearing Right Lower Extremity: Right Full Weight Bearing Left Lower Extremity: Left Full Weight Bearing Gait Training Does the Patient Walk?: Yes Gait (FIM): 5 Distance: 150'x2 Gait Level of Assist: 5 Gait Persons Needed: 1 Gait Assistive Device: FWW pt ambulates to/from gym w/ FWW and SBA, pt demonstrates flexed posture due to fatigue Stair Training Stair Training: Handrails/: 2 handrails Stairs (FIM): 2 #of Steps: 4 Stairs: Pattern: Step to Level of Assist: 3 pt ascends/descends 4 stairs w/ modA using 2 handrails and a step-to pattern, pt states his legs feel very weak and had slight LOB after ascending second step , but was able to complete the exercise Exercises squats to touch chair in parallel bars x20 Treatments gait training, functional strengthening, endurance training Assessment Current Status: Fair Progress improved mobility and strength, pt able to ascend/descend stairs and perform higher level of exercises, less nausea PT Short Term Goals Short Term Goals Time Frame: Jun 29, 2018 Transfers (B,C,W/C) (FIM): 5 Gait (FIM): 5 Distance (FIM): 3=150 ft Gait Distance Comment: 200' Gait Level of Assist: 5 Gait Assistive Device: FWW Wheelchair Distance: 250',150'x2 PT [employer]te[employer] Goals [employer] Filterer Goals [facility] Goals Time Frame: Jul 13, 2018 Transfers (B,C,W/C) (FIM): 6 Sit to Lying (QC): 6 Lying-Sitting on Side/Bed(QC): 6 Sit to Stand (QC): 6 Rollin Roll Left to Right (QC): 6 Chair/Msm-yo-Nqirp Xfer(QC): 6 Car Transfer (QC): 6 Does the Patient Walk: Yes Gait (FIM): 6 Distance: SEE PT GOALS Walk 10 feet (QC): 6 Walk 10ft-Uneven Surface(QC): 6 Walk 50ft with 2 Turns (QC): 6 Walk 150 ft (QC): 6 Gait Level of Assist: 6 Gait Assistive Device: FWW Stairs (FIM): 5 (household exception) # of Steps: 4 1 Step (curb) (QC): 6 4 Steps (QC): 6 12 Steps (QC): 0 Picking up an Object (QC): 4 PT Plan Problem List Problem List: Activity Tolerance, Functional Strength, Safety, Balance, Gait, Transfer, Bed Mobility Treatment/Plan Treatment Plan: Continue Plan of Care Treatment Plan: Bed Mobility, Concurrent Therapy, Education, Functional Activity Camryn, Functional Strength, Group Therapy, Gait, Safety, Therapeutic Exercise, Transfers Treatment Duration: Jul 13, 2018 Frequency: Modified Program (IRF) (due to dialysis) Estimated Hrs Per Day: 1.5 hours per day Patient and/or Family Agrees t: Yes Safety Risks/Education Patient Education: Gait Training, Transfer Techniques, Correct Positioning, Safety Issues Teaching Recipient: Patient Teaching Methods: Demonstration, Discussion Response to Teaching: Reinforcement Needed Time/GCodes Time In: 0800 Time Out: 0900 Total Billed Treatment Time: 60 Total Billed Treatment 1 visit GT 15' FA 15' EX 30' DONNELL MA PT Jul 05, 2018 08:59
[2018-07-05] MEDS: PANTOPRAZOLE 40 MG (PROTONIX) VIAL IV SCH ×2 (09:26→20:54)
[2018-07-05] MEDS: buPROPion 100 MG (WELLBUTRIN) TAB PEG SCH ×2 (09:26→20:55)
[2018-07-05] MEDS: ALPRAZolam 0.5 MG (XANAX) TAB PEG PRN ×2 (09:26→17:47)
[2018-07-05] MEDS: CARVEDILOL 12.5 MG (COREG) TABLET PEG SCH ×2 (09:26→20:55)
[2018-07-05] MEDS: CHOLESTYRAMINE 4 GM (QUESTRAN LITE, PREVALITE) PKT PEG SCH ×3 (09:26→21:55)
[2018-07-05] MEDS: FOLIC ACID 1 MG TAB PEG SCH (09:26)
[2018-07-05] MEDS: LACTOBACILLUS ACIDOPHILUS (PROBIOTIC) CAPSULE PEG SCH ×2 (09:26→20:55)
[2018-07-05] MEDS: METOCLOPRAMIDE 10MG/10ML ORAL SOL(REGLAN) UDC PEG SCH ×2 (09:27→20:55)
[2018-07-05] MEDS: inSUlin DETERMIR 1 UNIT/0.01 ML (LEVEMIR) CHARGE PER UNIT SQ SCH (09:27)
--- NOTE | 2018-07-05 11:10 | Occupational Ther Daily Note ---
OT Current Status-Daily Note Subjective Pt alert, lying in bed. Pt states that his legs feel like noodles and his back feels tight due to his prior PT session. Pt agrees to therapy. Mental Status/Objective Patient Orientation: Person, Place, Time, Situation Functional [place] Measure 0=Not Assessed/NA 4=Minimal Assistance 1=Total Assistance 5=Supervision or Setup 2=Maximal Assistance 6=Modified [place] 3=Moderate Assistance 7=Complete [place] Attachments: IV, PEG Tube, Other-See Comments (PICC) ADL-Treatment Using EOB slightly raised and bed rails pt is able to go from supine to EOB by self. Using FWW with SBA pt transferred from EOB and ambulated to the bathroom. Pt transferred to/from shower using shower bench, grab bars and FWW for stability, SBA. Pt completed bathing with Mod I using long handled sponge, grab bars, shower bench, and hand held shower. Pt sat in chair to complete upper/lower body dressing. After set up, pt completed upper body dressing by self. Using AE pt able to don/doff lower body clothing. Pt uses FWW in standing to hike pants over hips, SBA. Using AE pt dons/doffs socks by self. Min A with don/doff shoes with right AFO. Completed grooming in sitting at sink , mod I. Pt took increased time to complete ADLs. Functional [place] Measure 0=Not Assessed/NA 4=Minimal Assistance 1=Total Assistance 5=Supervision or Setup 2=Maximal Assistance 6=Modified [place] 3=Moderate Assistance 7=Complete IndependenceIRFPAI Quality Coding Scale 6 Independent with activity with or without an assistive device 5 Patient requires set up or clean up by helper. Patient completes activity by themselves 4 Supervision or touching assist (CGA). [place] provide cues , steadying assist 3 The helper provides less than half the effort to complete the activity 2 The helper provides more than half the effort to complete the activity 1 Dependent. The helper does all the effort to complete an activity 7 Patient refused to complete or attempt activity 9 The patient did not perform the activity before the current illness or injury 88 Not attempted due to Medical conditions or safety concerns Grooming (FIM): 6 Oral Hygiene (QC): 6 Bathing (FIM): 6 Bathing Location: L Arm, R Arm, L Upper Leg, R Upper Leg, L Lower Leg ( including foot), R Lower Leg (including foot), Chest, Abdomen, Buttocks, Perineal Area Shower/Bathe Self (QC): 6 Upper Body (FIM): 5 Upper Body Dressing (QC): 5 Lower Body Dressing (FIM): 4 Lower Body Dressing (QC): 4 On/Off Footwear (QC): 4 Transfers (B, C, W/C) (FIM): 5 Shower Transfer(FIM): 5 Other Treatment Pt ambulated to therapy gym, [facility]. Pt completed arm bike 15 min/ 15 berkowitz resistance needing few rest breaks, increasing activity tolerance and UE strength needed for daily functional activity. Pt completed dowel mercedez exercises with 2# wt, 4 exercises/15x/3 sets increasing UE strength needed for daily functional tasks. Pt took increased time, needing rest breaks between activities. Pt had no complaints of nausea during session. After therapy, pt lying in bed with call light/phone within reach. All needs met in room. OT Short Term Goals Short Term Goals Time Frame: Jul 06, 2018 Grooming(FIM): 5 Bathing(FIM): 4 Upper Body Dressing(FIM): 4 Lower Body Dressing(FIM): 4 Toileting(FIM): 4 Transfers (B,C,W/C) (FIM): 5 Toilet/Commode Transfer(FIM): 5 Shower Transfer(FIM): 4 Additional Short Term Goals: 1-Demonstrate ADL Tasks, 2-Verbalize Understanding , 3-ImproveStrength/Camryn 1=Demonstrate adherence to instructed precautions during ADL tasks. 2=Patient will verbalize/demonstrate understanding of assistive devices/ modifications for ADL. 3=Patient will improve strength/tolerance for activity to enable patient to perform ADL's. OT Supervisor [employer] Goals Skilled Nursing Goals Time Frame: Jul 20, 2018 Groomin Oral Hygiene (QC): 4 Bathing(FIM): 5 Shower/Bathe Self (QC): 4 Upper Body Dressing(FIM): 5 Upper Body Dressing (QC): 4 Lower Body Dressing(FIM): 5 Lower Body Dressing (QC): 4 On/Off Footwear (QC): 4 Toileting(FIM): 5 Toileting Hygiene (QC): 4 Transfers (B,C,W/C) (FIM): 6 Toilet/Commode Transfer(FIM): 6 Toilet/Commode Transfer (QC): 6 Shower Transfer(FIM): 5 Additional Goals: 1-Demonstrate ADL Tasks, 2-Verbalize Understanding, 3- ImproveStrength/Camryn 1=Demonstrate adherence to instructed precautions during ADL tasks. 2=Patient will verbalize/demonstrate understanding of assistive devices/ modifications for ADL. 3=Patient will improve strength/tolerance for activity to enable patient to perform ADL's. OT Education/Plan Discharge Recommendations Plan/Recommendations: Continue POC Treatment Plan/Plan of Care Patient would benefit from OT for education, treatment and training to promote independence in ADL's, mobility, safety and/or upper extremity function for ADL' s. Plan of Care: ADL Retraining, Functional Mobility, Group Exercise/Act as Ind, UE Funct Exercise/Act Treatment Duration: Jul 20, 2018 Frequency: At least 5 of 7 days/Wk (IRF) Estimated Hrs Per Day: 1.5 hours per day Agreement: Yes Rehab Potential: Fair Time/GCodes Start Time: 09:30 Stop Time: 11:00 Total Time Billed (hr/min): 90 Billed Treatment Time 1 visit- ADL 3 (45 min) Ex 3 (45 min) PRICILA CARTER OT Jul 05, 2018 11:10
--- NOTE | 2018-07-05 14:20 | Physical Therapy Daily Note ---
PT Daily Note-Current Subjective pt in bed pre tx, agrees to PT, no pain to report, but states his legs feel weak from this morning's session Appearance pt in bed post tx, w/ phone, call light, tray, all needs met Mental Status Patient Orientation: Normal For Age Attachments: PEG Tube Transfers Functional [place] Measure 0=Not Assessed/NA 4=Minimal Assistance 1=Total Assistance 5=Supervision or Setup 2=Maximal Assistance 6=Modified [place] 3=Moderate Assistance 7=Complete IndependenceIRFPAI Quality Coding Scale 6 Independent with activity with or without an assistive device 5 Patient requires set up or clean up by helper. Patient completes activity by themselves 4 Supervision or touching assist (CGA). [place] provide cues , steadying assist 3 The helper provides less than half the effort to complete the activity 2 The helper provides more than half the effort to complete the activity 1 Dependent. The helper does all the effort to complete an activity 7 Patient refused to complete or attempt activity 9 The patient did not perform the activity before the current illness or injury 88 Not attempted due to Medical conditions or safety concerns Transfers (B, C, W/C) (FIM): 5 Scootin Rollin Supine to/from Sit: 6 Sit to/from Stand: 5 SBA for all transfers Weight Bearing Right Lower Extremity: Right Full Weight Bearing Left Lower Extremity: Left Full Weight Bearing Gait Training Does the Patient Walk?: Yes Gait (FIM): 5 Distance: 200',150', 20'x5 Gait Level of Assist: 5 Gait Persons Needed: 1 Gait Assistive Device: FWW pt ambulates to/from gym w/ FWW and SBA, pt demonstrates flexed posture and flexed knees walking w/o AD in parallel bars w/ Cate 3x3 laps tic-tac-toe w/ GT w/ FWW SBA, pt walks 10', makes his play, returns to chair 10' , performs sit<->stand, repeat Exercises Standing: Sit to Stand Standing Reps: 5 Treatments gait training, endurance training Assessment Current Status: Fair Progress improved endurance and mobility PT Short Term Goals Short Term Goals Time Frame: Jun 29, 2018 Transfers (B,C,W/C) (FIM): 5 Gait (FIM): 5 Distance (FIM): 3=150 ft Gait Distance Comment: 200' Gait Level of Assist: 5 Gait Assistive Device: FWW Wheelchair Distance: 250',150'x2 PT [facility] Goals [facility] Goals PT Global Program Manager Goals Time Frame: Jul 13, 2018 Transfers (B,C,W/C) (FIM): 6 Sit to Lying (QC): 6 Lying-Sitting on Side/Bed(QC): 6 Sit to Stand (QC): 6 Rollin Roll Left to Right (QC): 6 Chair/Dmk-be-Wasbf Xfer(QC): 6 Car Transfer (QC): 6 Does the Patient Walk: Yes Gait (FIM): 6 Distance: SEE PT GOALS Walk 10 feet (QC): 6 Walk 10ft-Uneven Surface(QC): 6 Walk 50ft with 2 Turns (QC): 6 Walk 150 ft (QC): 6 Gait Level of Assist: 6 Gait Assistive Device: FWW Stairs (FIM): 5 (household exception) # of Steps: 4 1 Step (curb) (QC): 6 4 Steps (QC): 6 12 Steps (QC): 0 Picking up an Object (QC): 4 PT Plan Problem List Problem List: Activity Tolerance, Functional Strength, Safety, Balance, Gait, Transfer, Bed Mobility Treatment/Plan Treatment Plan: Continue Plan of Care Treatment Plan: Bed Mobility, Concurrent Therapy, Education, Functional Activity Camryn, Functional Strength, Group Therapy, Gait, Safety, Therapeutic Exercise, Transfers Treatment Duration: Jul 13, 2018 Frequency: Modified Program (IRF) (due to dialysis) Estimated Hrs Per Day: 1.5 hours per day Patient and/or Family Agrees t: Yes Safety Risks/Education Patient Education: Gait Training, Transfer Techniques, Correct Positioning, Safety Issues Teaching Recipient: Patient Teaching Methods: Demonstration, Discussion Response to Teaching: Reinforcement Needed Time/GCodes Time In: 1330 Time Out: 1400 Total Billed Treatment Time: 30 Total Billed Treatment 1 visit GT 30' DONNELL MA PT Jul 05, 2018 14:20
[2018-07-05] MEDS: ENOXAPARIN 30 MG/0.3 ML (LOVENOX) SYR SC SCH (16:17)
[2018-07-05 18:17] VITALS: BP 158/83
[2018-07-05] MEDS: ZOLPIDEM 5 MG (AMBIEN) TAB PEG SCH (20:55)
[2018-07-05] MEDS: MELATONIN 3 MG TABLET PEG SCH (20:56)
[2018-07-05] MEDS: POLYETHYLENE GLYCOL 17 GM (MIRALAX) PACK PEG SCH (21:00)
[2018-07-06] MEDS: NYSTATIN ORAL SUSP 5 ML UDC PO SCH ×5 (00:45→23:46)
[2018-07-06] MEDS: inSUlin ASPART (NovoLOG) 1 UNIT/0.01 ML (CHARGE PER UNIT) SC SCH ×5 (00:45→23:46)
[2018-07-06] MEDS: SUCRALFATE 1 GM (CARAFATE) TAB PEG SCH ×5 (00:45→23:46)
[2018-07-06] MEDS: ONDANSETRON 4 MG/2 ML (SDV) Z0FRAN IVP PRN (05:36)
[2018-07-06] MEDS: ALPRAZolam 0.5 MG (XANAX) TAB PEG PRN ×3 (05:36→20:29)
[2018-07-06 06:00] VITALS: BP 127/73
[2018-07-06] MEDS: predniSONE 10 MG TAB PEG SCH (06:36)
[2018-07-06] MEDS: CHOLESTYRAMINE 4 GM (QUESTRAN LITE, PREVALITE) PKT PEG SCH ×3 (09:25→20:30)
--- NOTE | 2018-07-06 11:56 | Physical Therapy Daily Note ---
PT Daily Note-Current Subjective Pt in w/c pre tx, agrees to PT, no pain to report, pt has just returned from dialysis, will be co-treating with OT Appearance pt in bed post tx, w/ phone, call light, tray, all needs met Mental Status Patient Orientation: Normal For Age Attachments: PEG Tube Transfers Functional [place] Measure 0=Not Assessed/NA 4=Minimal Assistance 1=Total Assistance 5=Supervision or Setup 2=Maximal Assistance 6=Modified [place] 3=Moderate Assistance 7=Complete IndependenceIRFPAI Quality Coding Scale 6 Independent with activity with or without an assistive device 5 Patient requires set up or clean up by helper. Patient completes activity by themselves 4 Supervision or touching assist (CGA). [place] provide cues , steadying assist 3 The helper provides less than half the effort to complete the activity 2 The helper provides more than half the effort to complete the activity 1 Dependent. The helper does all the effort to complete an activity 7 Patient refused to complete or attempt activity 9 The patient did not perform the activity before the current illness or injury 88 Not attempted due to Medical conditions or safety concerns Transfers (B, C, W/C) (FIM): 5 Scootin Rollin Supine to/from Sit: 6 Sit to/from Stand: 5 supine<->sit mod I, bed mobility mod I, sit<->stand SBA Weight Bearing Right Lower Extremity: Right Full Weight Bearing Left Lower Extremity: Left Full Weight Bearing Gait Training Does the Patient Walk?: Yes Gait (FIM): 5 Distance: 150' Gait Level of Assist: 5 Gait Persons Needed: 1 Gait Assistive Device: FWW Pt ambulates 150' w/ SBA using FWW, improved gait speed and stride length GT in parallel bars, walking unsupported 3x3 laps forward/backward, Cate Exercises Standing: Heel/toe raises (20), Marching (20), Sit to Stand (10), Side steps ( 10) Neuromuscular standing balance while tossing object 15min Treatments gait training, endurance training, balance training, functional strengthening Assessment Current Status: Fair Progress improved activity tolerance, balance, and gait speed PT Short Term Goals Short Term Goals Time Frame: Jun 29, 2018 Transfers (B,C,W/C) (FIM): 5 Gait (FIM): 5 Distance (FIM): 3=150 ft Gait Distance Comment: 200' Gait Level of Assist: 5 Gait Assistive Device: FWW Wheelchair Distance: 250',150'x2 PT [facility] Goals [facility] Goals PT Fleet Technician Goals Time Frame: Jul 13, 2018 Transfers (B,C,W/C) (FIM): 6 Sit to Lying (QC): 6 Lying-Sitting on Side/Bed(QC): 6 Sit to Stand (QC): 6 Rollin Roll Left to Right (QC): 6 Chair/Wjw-vm-Zceiz Xfer(QC): 6 Car Transfer (QC): 6 Does the Patient Walk: Yes Gait (FIM): 6 Distance: SEE PT GOALS Walk 10 feet (QC): 6 Walk 10ft-Uneven Surface(QC): 6 Walk 50ft with 2 Turns (QC): 6 Walk 150 ft (QC): 6 Gait Level of Assist: 6 Gait Assistive Device: FWW Stairs (FIM): 5 (household exception) # of Steps: 4 1 Step (curb) (QC): 6 4 Steps (QC): 6 12 Steps (QC): 0 Picking up an Object (QC): 4 PT Plan Problem List Problem List: Activity Tolerance, Functional Strength, Safety, Balance, Gait, Transfer, Bed Mobility Treatment/Plan Treatment Plan: Continue Plan of Care Treatment Plan: Bed Mobility, Concurrent Therapy, Education, Functional Activity Camryn, Functional Strength, Group Therapy, Gait, Safety, Therapeutic Exercise, Transfers Treatment Duration: Jul 13, 2018 Frequency: Modified Program (IRF) (due to dialysis) Estimated Hrs Per Day: 1.5 hours per day Patient and/or Family Agrees t: Yes Safety Risks/Education Patient Education: Gait Training, Transfer Techniques, Correct Positioning, Safety Issues Teaching Recipient: Patient Teaching Methods: Demonstration, Discussion Response to Teaching: Reinforcement Needed Time/GCodes Time In: 1105 Time Out: 1200 Total Billed Treatment Time: 55 Total Billed Treatment 1 visit GT 15' EX 25' NM 15' Co-treat w/ OT 55'. OT worked on UE strength and coordination, PT worked on LE strengthening, balance, and mobility. OT and PT worked together due to increased pt fatigue after dialysis, and overall decreased in functional mobility. PT and OT co-treated for the whole 55 min. DONNELL MA PT Jul 06, 2018 11:56
--- NOTE | 2018-07-06 12:02 | Occupational Ther Daily Note ---
OT Current Status-Daily Note Subjective Pt back from dialysis. OT/PT co-treat for skilled care and decreased activity tolerance. Pt agrees to therapy. No c/o pain at this time. Mental Status/Objective Patient Orientation: Person, Place, Time, Situation Functional [place] Measure 0=Not Assessed/NA 4=Minimal Assistance 1=Total Assistance 5=Supervision or Setup 2=Maximal Assistance 6=Modified [place] 3=Moderate Assistance 7=Complete [place] Attachments: IV, PEG Tube, Other-See Comments (PICC) ADL-Treatment Functional [place] Measure 0=Not Assessed/NA 4=Minimal Assistance 1=Total Assistance 5=Supervision or Setup 2=Maximal Assistance 6=Modified [place] 3=Moderate Assistance 7=Complete IndependenceIRFPAI Quality Coding Scale 6 Independent with activity with or without an assistive device 5 Patient requires set up or clean up by helper. Patient completes activity by themselves 4 Supervision or touching assist (CGA). [place] provide cues , steadying assist 3 The helper provides less than half the effort to complete the activity 2 The helper provides more than half the effort to complete the activity 1 Dependent. The helper does all the effort to complete an activity 7 Patient refused to complete or attempt activity 9 The patient did not perform the activity before the current illness or injury 88 Not attempted due to Medical conditions or safety concerns Transfers (B, C, W/C) (FIM): 5 (SBA using FWW for stability) Other Treatment PT worked on car transfers, transfers, ambulation, balance and LE strengthening. OT worked on UE strengthening, reaching grasping for daily functional tasks and fine motor tasks. Pt maneuvered w/c around hospital practicing with different surfaces and incline/declines increasing activity tolerance and UE strength. Pt increased dynamic standing, balance, fine motor pinch/grasp and UE strength with task in standing using FWW for stability, SBA. Pt simulated reaching/bending tasks increasing dynamic sitting balance needed for daily functional activity. Pt ambulated back to room using FWW with SBA, therapists offered to take pt to restroom, pt declined. Pt lying in bed with call light/phone within reach. All needs met in room. OT Short Term Goals Short Term Goals Time Frame: Jul 06, 2018 Grooming(FIM): 5 Bathing(FIM): 4 Upper Body Dressing(FIM): 4 Lower Body Dressing(FIM): 4 Toileting(FIM): 4 Transfers (B,C,W/C) (FIM): 5 Toilet/Commode Transfer(FIM): 5 Shower Transfer(FIM): 4 Additional Short Term Goals: 1-Demonstrate ADL Tasks, 2-Verbalize Understanding , 3-ImproveStrength/Camryn 1=Demonstrate adherence to instructed precautions during ADL tasks. 2=Patient will verbalize/demonstrate understanding of assistive devices/ modifications for ADL. 3=Patient will improve strength/tolerance for activity to enable patient to perform ADL's. OT Professor Of Education Goals [facility] Goals Time Frame: Jul 20, 2018 Groomin Oral Hygiene (QC): 4 Bathing(FIM): 5 Shower/Bathe Self (QC): 4 Upper Body Dressing(FIM): 5 Upper Body Dressing (QC): 4 Lower Body Dressing(FIM): 5 Lower Body Dressing (QC): 4 On/Off Footwear (QC): 4 Toileting(FIM): 5 Toileting Hygiene (QC): 4 Transfers (B,C,W/C) (FIM): 6 Toilet/Commode Transfer(FIM): 6 Toilet/Commode Transfer (QC): 6 Shower Transfer(FIM): 5 Additional Goals: 1-Demonstrate ADL Tasks, 2-Verbalize Understanding, 3- ImproveStrength/Camryn 1=Demonstrate adherence to instructed precautions during ADL tasks. 2=Patient will verbalize/demonstrate understanding of assistive devices/ modifications for ADL. 3=Patient will improve strength/tolerance for activity to enable patient to perform ADL's. OT Education/Plan Discharge Recommendations Plan/Recommendations: Continue POC Treatment Plan/Plan of Care Patient would benefit from OT for education, treatment and training to promote independence in ADL's, mobility, safety and/or upper extremity function for ADL' s. Plan of Care: ADL Retraining, Functional Mobility, Group Exercise/Act as Ind, UE Funct Exercise/Act Treatment Duration: Jul 20, 2018 Frequency: At least 5 of 7 days/Wk (IRF) Estimated Hrs Per Day: 1.5 hours per day Agreement: Yes Rehab Potential: Fair Time/GCodes Start Time: 11:05 Stop Time: 11:55 Total Time Billed (hr/min): 50 Billed Treatment Time 1 visit- EX 4 (55 min) -co-treat 55 min. VIPUL KIRK Jul 06, 2018 12:02
[2018-07-06] MEDS: METOCLOPRAMIDE 10MG/10ML ORAL SOL(REGLAN) UDC PEG SCH ×2 (12:34→20:30)
[2018-07-06] MEDS: CARVEDILOL 12.5 MG (COREG) TABLET PEG SCH ×2 (12:35→20:30)
[2018-07-06] MEDS: buPROPion 100 MG (WELLBUTRIN) TAB PEG SCH ×2 (12:35→20:30)
[2018-07-06] MEDS: FOLIC ACID 1 MG TAB PEG SCH (12:35)
[2018-07-06] MEDS: LACTOBACILLUS ACIDOPHILUS (PROBIOTIC) CAPSULE PEG SCH ×2 (12:35→20:29)
[2018-07-06] MEDS: PANTOPRAZOLE 40 MG (PROTONIX) VIAL IV SCH ×2 (12:36→20:30)
[2018-07-06] MEDS: inSUlin DETERMIR 1 UNIT/0.01 ML (LEVEMIR) CHARGE PER UNIT SQ SCH (12:58)
--- NOTE | 2018-07-06 13:08 | PM & R (SOAP) Progress Note ---
Subjective This was a face to face visit with the patient. Date Seen by Provider: Jul 06, 2018 Time Seen by Provider: 12:55 Subjective/Events-last exam Patient was seen in his room this afternoon Patient SBA for transfers.Less N/V this AM Diarrhea improved Date Identified: Jul 06, 2018 Time Identified: 13:00 Medication Intervention: N/V Diarrhea/DMdoing better with adjustment in meds Tolerated Dialysis OK today Review of Systems Gastrointestinal: Nausea, Vomiting Musculoskeletal: other (pressure sore pain) Neurological: Weakness Objective Physician Exam Last Set of Vital Signs Vital Signs Date Time Temp Pulse Resp B/P (MAP) Pulse Ox O2 Delivery O2 Flow Rate FiO2 07/06/18 06:00 97.2 74 20 127/73 (91) 99 Room Air 06/30/18 18:28 Capillary Refill : Less Than 3 Seconds I&O Intake and Output 07/06/18 00:00 Intake Total 1750 ml Output Total 400 ml Balance 1350 ml Intake Oral 0 ml Tube Feeding 1310 ml Other 440 ml Output Urine Total 400 ml # Bowel Movements 1 General: Alert, Oriented X3, Cooperative, No Acute Distress, Other (Afebrile P =89 RR 16 BP 106/76 02 sats 100%% RA) HEENT: PERRLA, EOMI, Mucous Memb Moist/[place] Neck: Supple, No JVD, Other (Trach functioning) Lungs: Clear to Auscultation Heart: Regular Rate Abdomen: Normal Bowel Sounds, Soft, No Tenderness, Other (Peg tube in place HD catheter in left anterior chest) Extremities: No Edema Skin: Other (Stage 4 pressure sore sacrum) Neuro: Other (Generalized weakness Lower limbs >Upper and RT lower limb >left) Psych/Mental Status: Mental Status NL Results Lab Data Laboratory Tests 07/03/18 17:53: Glucometer 96 07/03/18 23:55: Glucometer 95 07/04/18 04:25: Sodium Level 136, Potassium Level 4.4, Chloride Level 97L, Carbon Dioxide Level 31, Anion Gap 8, Blood Urea Nitrogen 31H, Creatinine 3.26H, Estimat Glomerular Filtration Rate 20, BUN/Creatinine Ratio 10, Glucose Level 102, Calcium Level 10.0 07/04/18 11:57: Glucometer 148H 07/04/18 18:36: Glucometer 102 07/04/18 23:47: Glucometer 129H 07/05/18 05:27: Glucometer 118H 07/05/18 12:13: Glucometer 206H 07/05/18 17:56: Glucometer 100 07/06/18 00:44: Glucometer 100 07/06/18 05:22: Glucometer 129H 07/06/18 12:14: Glucometer 128H Assessment/Plan Assessment and Plan 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
--- NOTE | 2018-07-06 13:36 | Occupational Ther Daily Note ---
OT Current Status-Daily Note Subjective Pt alert, lying in bed. No c/o pain at this time. Pt agrees to therapy. Mental Status/Objective Patient Orientation: Person, Place, Time, Situation Functional [place] Measure 0=Not Assessed/NA 4=Minimal Assistance 1=Total Assistance 5=Supervision or Setup 2=Maximal Assistance 6=Modified [place] 3=Moderate Assistance 7=Complete [place] ADL-Treatment Functional [place] Measure 0=Not Assessed/NA 4=Minimal Assistance 1=Total Assistance 5=Supervision or Setup 2=Maximal Assistance 6=Modified [place] 3=Moderate Assistance 7=Complete IndependenceIRFPAI Quality Coding Scale 6 Independent with activity with or without an assistive device 5 Patient requires set up or clean up by helper. Patient completes activity by themselves 4 Supervision or touching assist (CGA). [place] provide cues , steadying assist 3 The helper provides less than half the effort to complete the activity 2 The helper provides more than half the effort to complete the activity 1 Dependent. The helper does all the effort to complete an activity 7 Patient refused to complete or attempt activity 9 The patient did not perform the activity before the current illness or injury 88 Not attempted due to Medical conditions or safety concerns Transfers (B, C, W/C) (FIM): 6 ( ) Other Treatment Pt ambulated to therapy gym with SBA using FWW. Pt completed arm bike 15 min/15 berkowitz resistance needing few rest breaks increasing UE strength and activity tolerance needed for daily functional living. Pt completed bead removal from resistive theraputty increasing fine motor strength needed for daily functional tasks. Pt ambulated back to therapy room using FWW with SBA. Pt had no complaints of nausea throughout therapy session. After therapy, pt lying in bed with call light/phone within reach. All needs met in room. OT Short Term Goals Short Term Goals Time Frame: Jul 06, 2018 Grooming(FIM): 5 Bathing(FIM): 4 Upper Body Dressing(FIM): 4 Lower Body Dressing(FIM): 4 Toileting(FIM): 4 Transfers (B,C,W/C) (FIM): 5 Toilet/Commode Transfer(FIM): 5 Shower Transfer(FIM): 4 Additional Short Term Goals: 1-Demonstrate ADL Tasks, 2-Verbalize Understanding , 3-ImproveStrength/Camryn 1=Demonstrate adherence to instructed precautions during ADL tasks. 2=Patient will verbalize/demonstrate understanding of assistive devices/ modifications for ADL. 3=Patient will improve strength/tolerance for activity to enable patient to perform ADL's. OT Lens Blocker Goals Lens Blocker Goals Time Frame: Jul 20, 2018 Groomin Oral Hygiene (QC): 4 Bathing(FIM): 5 Shower/Bathe Self (QC): 4 Upper Body Dressing(FIM): 5 Upper Body Dressing (QC): 4 Lower Body Dressing(FIM): 5 Lower Body Dressing (QC): 4 On/Off Footwear (QC): 4 Toileting(FIM): 5 Toileting Hygiene (QC): 4 Transfers (B,C,W/C) (FIM): 6 Toilet/Commode Transfer(FIM): 6 Toilet/Commode Transfer (QC): 6 Shower Transfer(FIM): 5 Additional Goals: 1-Demonstrate ADL Tasks, 2-Verbalize Understanding, 3- ImproveStrength/Camryn 1=Demonstrate adherence to instructed precautions during ADL tasks. 2=Patient will verbalize/demonstrate understanding of assistive devices/ modifications for ADL. 3=Patient will improve strength/tolerance for activity to enable patient to perform ADL's. OT Education/Plan Discharge Recommendations Plan/Recommendations: Continue POC Treatment Plan/Plan of Care Patient would benefit from OT for education, treatment and training to promote independence in ADL's, mobility, safety and/or upper extremity function for ADL' s. Plan of Care: ADL Retraining, Functional Mobility, Group Exercise/Act as Ind, UE Funct Exercise/Act Treatment Duration: Jul 20, 2018 Frequency: At least 5 of 7 days/Wk (IRF) Estimated Hrs Per Day: 1.5 hours per day Agreement: Yes Rehab Potential: Fair Time/GCodes Start Time: 12:55 Stop Time: 13:30 Total Time Billed (hr/min): 35 Billed Treatment Time 1 visit- EX 2 (35 min) VIPUL KIRK Jul 06, 2018 13:36
--- NOTE | 2018-07-06 14:36 | Physical Therapy Daily Note ---
PT Daily Note-Current Subjective pt in bed pre tx, agrees to PT, no pain to report, pt has just finished OT Appearance pt in bed post tx, w/ phone, call light, tray, all needs met Mental Status Attachments: PEG Tube Transfers Functional [place] Measure 0=Not Assessed/NA 4=Minimal Assistance 1=Total Assistance 5=Supervision or Setup 2=Maximal Assistance 6=Modified [place] 3=Moderate Assistance 7=Complete IndependenceIRFPAI Quality Coding Scale 6 Independent with activity with or without an assistive device 5 Patient requires set up or clean up by helper. Patient completes activity by themselves 4 Supervision or touching assist (CGA). [place] provide cues , steadying assist 3 The helper provides less than half the effort to complete the activity 2 The helper provides more than half the effort to complete the activity 1 Dependent. The helper does all the effort to complete an activity 7 Patient refused to complete or attempt activity 9 The patient did not perform the activity before the current illness or injury 88 Not attempted due to Medical conditions or safety concerns Transfers (B, C, W/C) (FIM): 5 Rollin Supine to/from Sit: 5 Sit to/from Stand: 5 supine<->sit SBA, sit<->stand SBA Weight Bearing Right Lower Extremity: Right Full Weight Bearing Left Lower Extremity: Left Full Weight Bearing Gait Training Does the Patient Walk?: Yes Gait (FIM): 5 Distance: 150',100' Gait Level of Assist: 5 Gait Persons Needed: 1 Gait Assistive Device: FWW Pt ambulates to/from gym w/ FWW and SBA, slight scissoring and unsteadiness w/ gait this afternoon, pt pushes walker far out in front w/ cues to stand up straight and keep walker close. Pt very fatigued after 150' and needs Cate final 10'. Pt much more stable on walk returning to room w/ no LOB, better posture and speed Exercises NuStep Minutes: 15 NuStep Workload: 3 Treatments gait training, endurance training Assessment Current Status: Fair Progress pt very fatigued after dialysis and morning tx sessions, w/ decreased stability during gait and decreased activity tolerance PT Short Term Goals Short Term Goals Time Frame: Jun 29, 2018 Transfers (B,C,W/C) (FIM): 5 Gait (FIM): 5 Distance (FIM): 3=150 ft Gait Distance Comment: 200' Gait Level of Assist: 5 Gait Assistive Device: FWW Wheelchair Distance: 250',150'x2 PT Retirement Goals Gas Adjuster Goals PT Retirement Goals Time Frame: Jul 13, 2018 Transfers (B,C,W/C) (FIM): 6 Sit to Lying (QC): 6 Lying-Sitting on Side/Bed(QC): 6 Sit to Stand (QC): 6 Rollin Roll Left to Right (QC): 6 Chair/Lbo-ni-Wbfkg Xfer(QC): 6 Car Transfer (QC): 6 Does the Patient Walk: Yes Gait (FIM): 6 Distance: SEE PT GOALS Walk 10 feet (QC): 6 Walk 10ft-Uneven Surface(QC): 6 Walk 50ft with 2 Turns (QC): 6 Walk 150 ft (QC): 6 Gait Level of Assist: 6 Gait Assistive Device: FWW Stairs (FIM): 5 (household exception) # of Steps: 4 1 Step (curb) (QC): 6 4 Steps (QC): 6 12 Steps (QC): 0 Picking up an Object (QC): 4 PT Plan Problem List Problem List: Activity Tolerance, Functional Strength, Safety, Balance, Gait, Transfer, Bed Mobility Treatment/Plan Treatment Plan: Continue Plan of Care Treatment Plan: Bed Mobility, Concurrent Therapy, Education, Functional Activity Camryn, Functional Strength, Group Therapy, Gait, Safety, Therapeutic Exercise, Transfers Treatment Duration: Jul 13, 2018 Frequency: Modified Program (IRF) (due to dialysis) Estimated Hrs Per Day: 1.5 hours per day Patient and/or Family Agrees t: Yes Safety Risks/Education Patient Education: Gait Training, Transfer Techniques, Correct Positioning, Safety Issues Teaching Recipient: Patient Teaching Methods: Demonstration, Discussion Response to Teaching: Reinforcement Needed Time/GCodes Time In: 1400 Time Out: 1430 Total Billed Treatment Time: 30 Total Billed Treatment 1 visit GT 15' EX 15' VIPUL SHI PT Jul 06, 2018 14:36
[2018-07-06 15:33] VITALS: BP 104/60
--- NOTE | 2018-07-06 16:02 | Physical Therapy Daily Note ---
PT Daily Note-Current Subjective Wants to reposition in bed. Transfers Functional [place] Measure 0=Not Assessed/NA 4=Minimal Assistance 1=Total Assistance 5=Supervision or Setup 2=Maximal Assistance 6=Modified [place] 3=Moderate Assistance 7=Complete IndependenceIRFPAI Quality Coding Scale 6 Independent with activity with or without an assistive device 5 Patient requires set up or clean up by helper. Patient completes activity by themselves 4 Supervision or touching assist (CGA). [place] provide cues , steadying assist 3 The helper provides less than half the effort to complete the activity 2 The helper provides more than half the effort to complete the activity 1 Dependent. The helper does all the effort to complete an activity 7 Patient refused to complete or attempt activity 9 The patient did not perform the activity before the current illness or injury 88 Not attempted due to Medical conditions or safety concerns Weight Bearing Right Lower Extremity: Right Full Weight Bearing Left Lower Extremity: Left Full Weight Bearing Treatments Assisted pt with scooting and rolling to reposition in bed. Skilled cues for techniques to complete. Education on importance of frequent mobility to continue to gain strength. Assessment Current Status: Good Progress PT Short Term Goals Short Term Goals Time Frame: Jun 29, 2018 Transfers (B,C,W/C) (FIM): 5 Gait (FIM): 5 Distance (FIM): 3=150 ft Gait Distance Comment: 200' Gait Level of Assist: 5 Gait Assistive Device: FWW Wheelchair Distance: 250',150'x2 PT Jail Goals Pesticide Chemist Goals PT Jail Goals Time Frame: Jul 13, 2018 Transfers (B,C,W/C) (FIM): 6 Sit to Lying (QC): 6 Lying-Sitting on Side/Bed(QC): 6 Sit to Stand (QC): 6 Rollin Roll Left to Right (QC): 6 Chair/Jtp-kx-Faixp Xfer(QC): 6 Car Transfer (QC): 6 Does the Patient Walk: Yes Gait (FIM): 6 Distance: SEE PT GOALS Walk 10 feet (QC): 6 Walk 10ft-Uneven Surface(QC): 6 Walk 50ft with 2 Turns (QC): 6 Walk 150 ft (QC): 6 Gait Level of Assist: 6 Gait Assistive Device: FWW Stairs (FIM): 5 (household exception) # of Steps: 4 1 Step (curb) (QC): 6 4 Steps (QC): 6 12 Steps (QC): 0 Picking up an Object (QC): 4 PT Plan Problem List Problem List: Activity Tolerance, Functional Strength, Safety Treatment/Plan Treatment Plan: Continue Plan of Care Treatment Plan: Bed Mobility, Concurrent Therapy, Education, Functional Activity Camryn, Functional Strength, Group Therapy, Gait, Safety, Therapeutic Exercise, Transfers Treatment Duration: Jul 13, 2018 Frequency: Modified Program (IRF) (due to dialysis) Estimated Hrs Per Day: 1.5 hours per day Patient and/or Family Agrees t: Yes Time/GCodes Time In: 1450 Time Out: 1500 Total Billed Treatment Time: 10 Total Billed Treatment visit FA 10 VIPUL SHI PT Jul 06, 2018 16:02
[2018-07-06] MEDS: ENOXAPARIN 30 MG/0.3 ML (LOVENOX) SYR SC SCH (16:46)
--- NOTE | 2018-07-06 18:05 | Wound Care Assessment ---
Wound Care Assessment Date Seen by Provider: Jul 06, 2018 Time Seen by Provider: 16:30 Chief Complaint Sacral pressure ulcer. HPI The patient is a 57 year old male diabetic with Stage 4 sacral pressure ulcer, which is smaller. The wound is less macerated. Continue silver alginate dressings bid. Past Medical History: Admits Diabetes Type II, Admits Heart Disease (S/P aortic valve replacement.), Admits Myocardial Infarction Smoking Status: Unknown if Ever Smoked Recreational Drug Use: No Alcohol Use: Denies Use Review of Systems Pulmonary: No Dyspnea Cardiovascular: No: Chest Pain Exam Vital Signs Date Time Temp Pulse Resp B/P (MAP) Pulse Ox O2 Delivery O2 Flow Rate FiO2 07/06/18 15:33 98.1 77 14 104/60 (75) 99 Room Air 06/30/18 18:28 Capillary Refill : Less Than 3 Seconds General Appearance: no apparent distress, cachetic Respiratory: no respiratory distress Gastrointestinal: soft Skin: other (Sacral ulcer -- 4.2 x 2.1 x 0.9 cm, base 75% slough, 255 granulation, mod. s.s. drainage.) Results Laboratory Tests 07/06/18 00:44: Glucometer 100 07/06/18 05:22: Glucometer 129H 07/06/18 12:14: Glucometer 128H Assessment/Plan/Dx 1. Pressure ulcer, sacral, stage 4, with apparent healing present. Currently macerated. 2. Diabetes mellitus, with ulcer of skin. 3. End stage renal disease, on dialysis. 4. Malnutrition. 5. Debility. Plan: Continue low air loss mattress, change to silver alginate dressings, frequent repositioning, careful toilet. DAROI QUIROZ MD Jul 06, 2018 18:05
[2018-07-06] MEDS: POLYETHYLENE GLYCOL 17 GM (MIRALAX) PACK PEG SCH (19:52)
[2018-07-06] MEDS: ZOLPIDEM 5 MG (AMBIEN) TAB PEG SCH (20:30)
[2018-07-06] MEDS: MELATONIN 3 MG TABLET PEG SCH (20:30)
[2018-07-07] MEDS: SUCRALFATE 1 GM (CARAFATE) TAB PEG SCH ×4 (05:14→23:47)
[2018-07-07] MEDS: predniSONE 10 MG TAB PEG SCH (05:14)
[2018-07-07] MEDS: ALPRAZolam 0.5 MG (XANAX) TAB PEG PRN ×2 (05:14→22:35)
[2018-07-07] MEDS: NYSTATIN ORAL SUSP 5 ML UDC PO SCH ×4 (05:14→23:47)
[2018-07-07 05:26] VITALS: BP 143/85
[2018-07-07] MEDS: inSUlin ASPART (NovoLOG) 1 UNIT/0.01 ML (CHARGE PER UNIT) SC SCH ×4 (05:29→23:53)
--- NOTE | 2018-07-07 07:59 | Occupational Ther Daily Note ---
OT Current Status-Daily Note Subjective Pt asleep, lying in bed. Awoke to name. No c/o pain. Pt agreed to therapy. Mental Status/Objective Patient Orientation: Person, Place, Time, Situation Functional [place] Measure 0=Not Assessed/NA 4=Minimal Assistance 1=Total Assistance 5=Supervision or Setup 2=Maximal Assistance 6=Modified [place] 3=Moderate Assistance 7=Complete [place] Attachments: IV, PEG Tube, Other-See Comments (PICC) ADL-Treatment Functional [place] Measure 0=Not Assessed/NA 4=Minimal Assistance 1=Total Assistance 5=Supervision or Setup 2=Maximal Assistance 6=Modified [place] 3=Moderate Assistance 7=Complete IndependenceIRFPAI Quality Coding Scale 6 Independent with activity with or without an assistive device 5 Patient requires set up or clean up by helper. Patient completes activity by themselves 4 Supervision or touching assist (CGA). [place] provide cues , steadying assist 3 The helper provides less than half the effort to complete the activity 2 The helper provides more than half the effort to complete the activity 1 Dependent. The helper does all the effort to complete an activity 7 Patient refused to complete or attempt activity 9 The patient did not perform the activity before the current illness or injury 88 Not attempted due to Medical conditions or safety concerns Grooming (FIM): 6 (In sitting, pt completes in front of sink. ) Oral Hygiene (QC): 6 Bathing (FIM): 5 (Pt completes using long handled sponge, hand held shower, shower bench and grabbars for stability. Assist to cover IV and PEG tub sites. ) Bathing Location: L Arm, R Arm, L Upper Leg, R Upper Leg, L Lower Leg ( including foot), R Lower Leg (including foot), Chest, Abdomen, Buttocks, Perineal Area Shower/Bathe Self (QC): 5 Upper Body (FIM): 5 (Set up, pt completes in sitting position. ) Upper Body Dressing (QC): 5 Lower Body Dressing (FIM): 5 (Set up. Pt completes using AE to manipulate clothing over feet. FWW for stability in standing to hike pants over hips, supervision.) Lower Body Dressing (QC): 5 On/Off Footwear (QC): 3 (Assist with manipulating sock aid and don shoes. ) Toileting (FIM): 5 (Pt completes in sitting using FWW and grabbars for stability. ) Toileting Hygiene (QC): 5 Transfers (B, C, W/C) (FIM): 6 (HOB raised and using arm rail for leverage pt able to go from supine to EOB. Pt uses FWW for stability on sit to stand. ) Toilet/Commode Transfer (FIM): 6 (Pt uses grabbars and FWW for stability.) Toilet Transfer (QC): 6 Shower Transfer(FIM): 6 (Pt uses grabbars and FWW for stability. ) Other Treatment Pt ambulated to therapy gym using FWW with SBA. Pt completed dynamic sitting, UE strengthening, and hand eye coordination task with 1# wt attached to R/L UE 15 reps, 4 sets (recovery breaks needed) increasing activity tolerance and UE gross motor needed for daily functional tasks. Pt ambulated back to room using FWW for stability, SBA. Pt had no complaints of nausea during session. After therapy, pt lying in bed with call light/phone within reach. All needs met in room. OT Short Term Goals Short Term Goals Time Frame: Jul 06, 2018 Grooming(FIM): 5 Bathing(FIM): 4 Upper Body Dressing(FIM): 4 Lower Body Dressing(FIM): 4 Toileting(FIM): 4 Transfers (B,C,W/C) (FIM): 5 Toilet/Commode Transfer(FIM): 5 Shower Transfer(FIM): 4 Additional Short Term Goals: 1-Demonstrate ADL Tasks, 2-Verbalize Understanding , 3-ImproveStrength/Camryn 1=Demonstrate adherence to instructed precautions during ADL tasks. 2=Patient will verbalize/demonstrate understanding of assistive devices/ modifications for ADL. 3=Patient will improve strength/tolerance for activity to enable patient to perform ADL's. OT Fuel Cell Builder Goals Fuel Cell Builder Goals Time Frame: Jul 20, 2018 Groomin Oral Hygiene (QC): 4 Bathing(FIM): 5 Shower/Bathe Self (QC): 4 Upper Body Dressing(FIM): 5 Upper Body Dressing (QC): 4 Lower Body Dressing(FIM): 5 Lower Body Dressing (QC): 4 On/Off Footwear (QC): 4 Toileting(FIM): 5 Toileting Hygiene (QC): 4 Transfers (B,C,W/C) (FIM): 6 Toilet/Commode Transfer(FIM): 6 Toilet/Commode Transfer (QC): 6 Shower Transfer(FIM): 5 Additional Goals: 1-Demonstrate ADL Tasks, 2-Verbalize Understanding, 3- ImproveStrength/Camryn 1=Demonstrate adherence to instructed precautions during ADL tasks. 2=Patient will verbalize/demonstrate understanding of assistive devices/ modifications for ADL. 3=Patient will improve strength/tolerance for activity to enable patient to perform ADL's. OT Education/Plan Discharge Recommendations Plan/Recommendations: Continue POC Treatment Plan/Plan of Care Patient would benefit from OT for education, treatment and training to promote independence in ADL's, mobility, safety and/or upper extremity function for ADL' s. Plan of Care: ADL Retraining, Functional Mobility, Group Exercise/Act as Ind, UE Funct Exercise/Act Treatment Duration: Jul 20, 2018 Frequency: At least 5 of 7 days/Wk (IRF) Estimated Hrs Per Day: 1.5 hours per day Agreement: Yes Rehab Potential: Fair Time/GCodes Start Time: 06:57 Stop Time: 08:00 Total Time Billed (hr/min): 63 Billed Treatment Time 1 visit- ADL 2 (35min) EX 2 (28min) VIPUL KIRK Jul 07, 2018 07:59
--- NOTE | 2018-07-07 08:24 | PM & R (SOAP) Progress Note ---
Subjective This was a face to face visit with the patient. Date Seen by Provider: Jul 07, 2018 Time Seen by Provider: 07:50 Subjective/Events-last exam Patient was seen in Gym this AM Continues to improve Patient SBA for transfers and gait with WW.No N/V duarrhea this AM Tolerating Dialysis well Date Identified: Jul 07, 2018 Time Identified: 07:30 Medication Intervention: Doing well with adjustment in Insulin for DM and meds for N?V Diarrhea Objective Physician Exam Last Set of Vital Signs Vital Signs Date Time Temp Pulse Resp B/P (MAP) Pulse Ox O2 Delivery O2 Flow Rate FiO2 07/07/18 05:26 98.6 93 20 143/85 (104) 99 Room Air Capillary Refill : Less Than 3 Seconds I&O Intake and Output 07/07/18 00:00 Intake Total 2103 ml Output Total 850 ml Balance 1253 ml Intake Oral 0 ml Tube Feeding 1683 ml Other 420 ml Output Urine Total 850 ml # Bowel Movements 2 General: Alert, Oriented X3, Cooperative, No Acute Distress, Other (Afebrile P =89 RR 16 BP 106/76 02 sats 100%% RA) HEENT: PERRLA, EOMI, Mucous Memb Moist/[place] Neck: Supple, No JVD, Other (Trach functioning) Lungs: Clear to Auscultation Heart: Regular Rate Abdomen: Normal Bowel Sounds, Soft, No Tenderness, Other (Peg tube in place HD catheter in left anterior chest) Extremities: No Edema Skin: Other (Stage 4 pressure sore sacrum) Neuro: Other (Generalized weakness Lower limbs >Upper and RT lower limb >left) Psych/Mental Status: Mental Status NL Results Lab Data Laboratory Tests 07/04/18 11:57: Glucometer 148H 07/04/18 18:36: Glucometer 102 07/04/18 23:47: Glucometer 129H 07/05/18 05:27: Glucometer 118H 07/05/18 12:13: Glucometer 206H 07/05/18 17:56: Glucometer 100 07/06/18 00:44: Glucometer 100 07/06/18 05:22: Glucometer 129H 07/06/18 12:14: Glucometer 128H 07/06/18 18:02: Glucometer 103 07/06/18 23:45: Glucometer 121H 07/07/18 05:10: Glucometer 140H Assessment/Plan Assessment and Plan 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; abscees with AVR resulting N/V imroved with meds Diarrhea improved with meds DM with hypoglycemia improved with adjustment in Insulin Hypokaaaalemia replaced Vocal cord paralysis NPO on Tube feeds Severe protein calorie malnutrition on Tube feeds Sacral pressure sore DR Russell following CAD s./p VT Anxiety meds [id number] A FIB controlled with med ESRD on Diaylisis TIW Plan Continue PT/OT ST has signed off Patient remaains NPO for now Team Conference next week F/U with DR Russell and Renal Co-Morbidities that are continuing to impact the rehab process: (include details ) FISH MACIAS MD Jul 07, 2018 08:24
--- NOTE | 2018-07-07 09:02 | Physical Therapy Daily Note ---
PT Daily Note-Current Subjective Pt in bed post tx, agrees to PT, no pain to report, but he is sore in his legs from yesterday's session Appearance pt in bed post tx, w/ phone, call light, tray, all needs met Mental Status Patient Orientation: Normal For Age Attachments: PEG Tube Transfers Functional [place] Measure 0=Not Assessed/NA 4=Minimal Assistance 1=Total Assistance 5=Supervision or Setup 2=Maximal Assistance 6=Modified [place] 3=Moderate Assistance 7=Complete IndependenceIRFPAI Quality Coding Scale 6 Independent with activity with or without an assistive device 5 Patient requires set up or clean up by helper. Patient completes activity by themselves 4 Supervision or touching assist (CGA). [place] provide cues , steadying assist 3 The helper provides less than half the effort to complete the activity 2 The helper provides more than half the effort to complete the activity 1 Dependent. The helper does all the effort to complete an activity 7 Patient refused to complete or attempt activity 9 The patient did not perform the activity before the current illness or injury 88 Not attempted due to Medical conditions or safety concerns Transfers (B, C, W/C) (FIM): 5 Rollin Supine to/from Sit: 6 Sit to/from Stand: 5 sit<->stand SBA, supine<->sit mod I, uses bed rail Weight Bearing Right Lower Extremity: Right Full Weight Bearing Left Lower Extremity: Left Full Weight Bearing Gait Training Does the Patient Walk?: Yes Gait (FIM): 5 Distance: 150'x3 Gait Level of Assist: 5 Gait Persons Needed: 1 Gait Assistive Device: FWW pt ambulates to/from gym w/ FWW and SBA, gait is steady, but pt shows slight LOB during turns, due to soreness from yesterday's tx // bar GT, 3x 2 laps unsupported Cate Exercises Supine Ex: Short Arc Quads, Straight leg raise Supine Reps: 30 Seated Therapy Exercises: Hamstring Curls (red band) Seated Reps: 30 NuStep Minutes: 15 NuStep Workload: 4 Treatments gait training, endurance training, functional strengthening Assessment Current Status: Fair Progress pt very tired and sore from yesterday's session, but able to complete tx today w / lower intensity exercise PT Short Term Goals Short Term Goals Time Frame: Jun 29, 2018 Transfers (B,C,W/C) (FIM): 5 Gait (FIM): 5 Distance (FIM): 3=150 ft Gait Distance Comment: 200' Gait Level of Assist: 5 Gait Assistive Device: FWW Wheelchair Distance: 250',150'x2 PT Knitted Goods Shaper Goals Half-Way Goals PT Knitted Goods Shaper Goals Time Frame: Jul 13, 2018 Transfers (B,C,W/C) (FIM): 6 Sit to Lying (QC): 6 Lying-Sitting on Side/Bed(QC): 6 Sit to Stand (QC): 6 Rollin Roll Left to Right (QC): 6 Chair/Pzp-xf-Vhhow Xfer(QC): 6 Car Transfer (QC): 6 Does the Patient Walk: Yes Gait (FIM): 6 Distance: SEE PT GOALS Walk 10 feet (QC): 6 Walk 10ft-Uneven Surface(QC): 6 Walk 50ft with 2 Turns (QC): 6 Walk 150 ft (QC): 6 Gait Level of Assist: 6 Gait Assistive Device: FWW Stairs (FIM): 5 (household exception) # of Steps: 4 1 Step (curb) (QC): 6 4 Steps (QC): 6 12 Steps (QC): 0 Picking up an Object (QC): 4 PT Plan Problem List Problem List: Activity Tolerance, Functional Strength, Safety, Balance, Gait, Transfer, Bed Mobility Treatment/Plan Treatment Plan: Continue Plan of Care Treatment Plan: Bed Mobility, Concurrent Therapy, Education, Functional Activity Camryn, Functional Strength, Group Therapy, Gait, Safety, Therapeutic Exercise, Transfers Treatment Duration: Jul 13, 2018 Frequency: Modified Program (IRF) (due to dialysis) Estimated Hrs Per Day: 1.5 hours per day Patient and/or Family Agrees t: Yes Safety Risks/Education Patient Education: Gait Training, Transfer Techniques, Correct Positioning, Safety Issues Teaching Recipient: Patient Teaching Methods: Demonstration, Discussion Response to Teaching: Reinforcement Needed Time/GCodes Time In: 0800 Time Out: 0900 Total Billed Treatment Time: 60 Total Billed Treatment 1 visit GT 30' EX 30' DONNELL MA PT Jul 07, 2018 09:02
[2018-07-07] MEDS: LACTOBACILLUS ACIDOPHILUS (PROBIOTIC) CAPSULE PEG SCH ×2 (09:50→21:37)
[2018-07-07] MEDS: FOLIC ACID 1 MG TAB PEG SCH (09:51)
[2018-07-07] MEDS: SCOPOLAMINE 1.5 MG (TRANSDERM-SCOP) PATCH TOP SCH (09:51)
[2018-07-07] MEDS: CHOLESTYRAMINE 4 GM (QUESTRAN LITE, PREVALITE) PKT PEG SCH ×3 (09:51→21:37)
[2018-07-07] MEDS: inSUlin DETERMIR 1 UNIT/0.01 ML (LEVEMIR) CHARGE PER UNIT SQ SCH (09:51)
[2018-07-07] MEDS: CARVEDILOL 12.5 MG (COREG) TABLET PEG SCH ×2 (09:51→21:37)
[2018-07-07] MEDS: buPROPion 100 MG (WELLBUTRIN) TAB PEG SCH ×2 (09:51→21:37)
[2018-07-07] MEDS: METOCLOPRAMIDE 10MG/10ML ORAL SOL(REGLAN) UDC PEG SCH ×2 (09:51→21:37)
[2018-07-07] MEDS: PANTOPRAZOLE 40 MG (PROTONIX) VIAL IV SCH ×2 (09:58→21:37)
--- NOTE | 2018-07-07 11:30 | Occupational Ther Daily Note ---
OT Current Status-Daily Note Subjective Pt alert, lying in bed. No c/o pain. pt agrees to therapy. Mental Status/Objective Patient Orientation: Person, Place, Time, Situation Functional [place] Measure 0=Not Assessed/NA 4=Minimal Assistance 1=Total Assistance 5=Supervision or Setup 2=Maximal Assistance 6=Modified [place] 3=Moderate Assistance 7=Complete [place] Attachments: IV, PEG Tube, Other-See Comments (PICC) ADL-Treatment Functional [place] Measure 0=Not Assessed/NA 4=Minimal Assistance 1=Total Assistance 5=Supervision or Setup 2=Maximal Assistance 6=Modified [place] 3=Moderate Assistance 7=Complete IndependenceIRFPAI Quality Coding Scale 6 Independent with activity with or without an assistive device 5 Patient requires set up or clean up by helper. Patient completes activity by themselves 4 Supervision or touching assist (CGA). [place] provide cues , steadying assist 3 The helper provides less than half the effort to complete the activity 2 The helper provides more than half the effort to complete the activity 1 Dependent. The helper does all the effort to complete an activity 7 Patient refused to complete or attempt activity 9 The patient did not perform the activity before the current illness or injury 88 Not attempted due to Medical conditions or safety concerns Transfers (B, C, W/C) (FIM): 6 (HOB raised, using arm rail pt able to go from supine to EOB. Pt uses FWW for stability in sit to stand. ) Other Treatment Pt maneuvered w/c around hospital practicing on different inclines/declines and surfaces increasing UE strength and activity tolerance needed for daily functional activity (multiple recovery breaks needed). Pt completed bilateral wrist exercise 3 ex/15x increasing wrist strength needed for transfers and daily functional tasks. After therapy pt lying in bed with call light/phone within reach. All needs met in room. OT Short Term Goals Short Term Goals Time Frame: Jul 06, 2018 Grooming(FIM): 5 Bathing(FIM): 4 Upper Body Dressing(FIM): 4 Lower Body Dressing(FIM): 4 Toileting(FIM): 4 Transfers (B,C,W/C) (FIM): 5 Toilet/Commode Transfer(FIM): 5 Shower Transfer(FIM): 4 Additional Short Term Goals: 1-Demonstrate ADL Tasks, 2-Verbalize Understanding , 3-ImproveStrength/Camryn 1=Demonstrate adherence to instructed precautions during ADL tasks. 2=Patient will verbalize/demonstrate understanding of assistive devices/ modifications for ADL. 3=Patient will improve strength/tolerance for activity to enable patient to perform ADL's. OT Prison Goals Prison Goals Time Frame: Jul 20, 2018 Groomin Oral Hygiene (QC): 4 Bathing(FIM): 5 Shower/Bathe Self (QC): 4 Upper Body Dressing(FIM): 5 Upper Body Dressing (QC): 4 Lower Body Dressing(FIM): 5 Lower Body Dressing (QC): 4 On/Off Footwear (QC): 4 Toileting(FIM): 5 Toileting Hygiene (QC): 4 Transfers (B,C,W/C) (FIM): 6 Toilet/Commode Transfer(FIM): 6 Toilet/Commode Transfer (QC): 6 Shower Transfer(FIM): 5 Additional Goals: 1-Demonstrate ADL Tasks, 2-Verbalize Understanding, 3- ImproveStrength/Camryn 1=Demonstrate adherence to instructed precautions during ADL tasks. 2=Patient will verbalize/demonstrate understanding of assistive devices/ modifications for ADL. 3=Patient will improve strength/tolerance for activity to enable patient to perform ADL's. OT Education/Plan Discharge Recommendations Plan/Recommendations: Continue POC Treatment Plan/Plan of Care Patient would benefit from OT for education, treatment and training to promote independence in ADL's, mobility, safety and/or upper extremity function for ADL' s. Plan of Care: ADL Retraining, Functional Mobility, Group Exercise/Act as Ind, UE Funct Exercise/Act Treatment Duration: Jul 20, 2018 Frequency: At least 5 of 7 days/Wk (IRF) Estimated Hrs Per Day: 1.5 hours per day Agreement: Yes Rehab Potential: Fair Time/GCodes Start Time: 11:00 Stop Time: 11:30 Total Time Billed (hr/min): 30 Billed Treatment Time 1 visit- EX 2 (30 min) VIPUL KIRK Jul 07, 2018 11:29
--- NOTE | 2018-07-07 14:51 | Physical Therapy Daily Note ---
PT Daily Note-Current Subjective pt in bed pre tx, agrees to PT, no pain to report, states his legs are sore and stiff Appearance pt in bed post tx, w/ phone, call light, tray, all needs met Mental Status Patient Orientation: Normal For Age Transfers Functional [place] Measure 0=Not Assessed/NA 4=Minimal Assistance 1=Total Assistance 5=Supervision or Setup 2=Maximal Assistance 6=Modified [place] 3=Moderate Assistance 7=Complete IndependenceIRFPAI Quality Coding Scale 6 Independent with activity with or without an assistive device 5 Patient requires set up or clean up by helper. Patient completes activity by themselves 4 Supervision or touching assist (CGA). [place] provide cues , steadying assist 3 The helper provides less than half the effort to complete the activity 2 The helper provides more than half the effort to complete the activity 1 Dependent. The helper does all the effort to complete an activity 7 Patient refused to complete or attempt activity 9 The patient did not perform the activity before the current illness or injury 88 Not attempted due to Medical conditions or safety concerns Transfers (B, C, W/C) (FIM): 5 Rollin Supine to/from Sit: 6 Sit to/from Stand: 5 supine<->sit mod I, pt relies on bed rail, sit<->stand SBA Weight Bearing Right Lower Extremity: Right Full Weight Bearing Left Lower Extremity: Left Full Weight Bearing Gait Training Does the Patient Walk?: Yes Gait (FIM): 5 Distance: 150'x2 Gait Level of Assist: 5 Gait Persons Needed: 1 Gait Assistive Device: FWW pt ambulates to/from gym w/ FWW and SBA, pt shows flexed posture and hips and flexed knees, wears R AFO Exercises Standing: Hip Abduction, Side steps, Step-ups Standing Reps: 20 side steps onto pink step x20 bilaterally Neuromuscular airex standing balance 2 min in // bars CGA Treatments gait training, functional strengthening, standing balance training Assessment Current Status: Fair Progress improving balance and endurance, pt nauseous and vomited during treatment, nurse notified PT Short Term Goals Short Term Goals Time Frame: Jun 29, 2018 Transfers (B,C,W/C) (FIM): 5 Gait (FIM): 5 Distance (FIM): 3=150 ft Gait Distance Comment: 200' Gait Level of Assist: 5 Gait Assistive Device: FWW Wheelchair Distance: 250',150'x2 PT Leather Staker Goals Leather Staker Goals PT Leather Staker Goals Time Frame: Jul 13, 2018 Transfers (B,C,W/C) (FIM): 6 Sit to Lying (QC): 6 Lying-Sitting on Side/Bed(QC): 6 Sit to Stand (QC): 6 Rollin Roll Left to Right (QC): 6 Chair/Nrf-kg-Hpyld Xfer(QC): 6 Car Transfer (QC): 6 Does the Patient Walk: Yes Gait (FIM): 6 Distance: SEE PT GOALS Walk 10 feet (QC): 6 Walk 10ft-Uneven Surface(QC): 6 Walk 50ft with 2 Turns (QC): 6 Walk 150 ft (QC): 6 Gait Level of Assist: 6 Gait Assistive Device: FWW Stairs (FIM): 5 (household exception) # of Steps: 4 1 Step (curb) (QC): 6 4 Steps (QC): 6 12 Steps (QC): 0 Picking up an Object (QC): 4 PT Plan Problem List Problem List: Activity Tolerance, Functional Strength, Safety, Balance, Gait, Transfer, Bed Mobility Treatment/Plan Treatment Plan: Continue Plan of Care Treatment Plan: Bed Mobility, Concurrent Therapy, Education, Functional Activity Camryn, Functional Strength, Group Therapy, Gait, Safety, Therapeutic Exercise, Transfers Treatment Duration: Jul 13, 2018 Frequency: Modified Program (IRF) (due to dialysis) Estimated Hrs Per Day: 1.5 hours per day Patient and/or Family Agrees t: Yes Safety Risks/Education Patient Education: Gait Training, Transfer Techniques, Correct Positioning, Disease Process, Safety Issues Teaching Recipient: Patient Teaching Methods: Demonstration, Discussion Response to Teaching: Reinforcement Needed Time/GCodes Time In: 1400 Time Out: 1430 Total Billed Treatment Time: 30 Total Billed Treatment 1 visit GT 10' EX 20' DONNELL MA PT Jul 07, 2018 14:51
--- NOTE | 2018-07-07 14:53 | Behavioral Health ProgressNote ---
Standard Progress Note HPI/CC on Admission Patient: Connor Edmonds Age: 57 Gender: male : 1960 CPT Code: 26972 Psychotherapy (Session length 45 min.) Date: 07/07/2018 Start Time: 1310 End Time: 1400 Duration: 50 min. Subjective: Connor, a 57 year old male, is seen today for individual psychotherapy to address concerns and symptoms associated with F43.23 Adjustment Disorder with Mixed Anxiety and Depressed Mood. The primary clinical theme and problem discussed during the appointment was Connor was consulted by VIANCA Espitia in this office one week ago. Please view her consultation report for initial clinical findings. Connor is being seen today to address his continued symptoms of anxiety. He reports that his anxiety does not seem any worse, but also not any better. He does have anticipation of being discharged home next week and this has increased some fears for him. He worries about being able to do things at home and having to rely on others to take care of him. Connor becomes emotional while speaking of these things and states he does not know why his voice does that because he is not emotional. He was also tearful and this was pointed out to him. He was given a great deal of reassurance and validation that his emotions are expected for everything he has been through. His abilities have changed a great deal and he is adjusting. Connor was provided with several strategies to help cope with his anxiety and fears. He provided some of his fears and we were able to challenge these and gain confidence to reduce these. Connor does not feel worthy due his limitations and that he watches television all day. We explored possible hobbies and interests to try new things. He enjoyed gambling in the past and will have his bring a deck of cards to play. He will also see if he can download some gambling/card apps on his smart phone. Connor was encouraged to journal his feelings and talk to his and staff when he has a fear or a concern so they can help him problem solve. He was encouraged to try some adult coloring to help him relax and have a project he can be working on. He states that his had suggested this and he will tell her he will try it. Connor was open to several different suggestions and gained insight with cognitive restructuring of his condition and his progress. He is a good psychotherapy candidate and was encouraged to follow up with services when he does return home. Symptoms observed or reported requiring current level of care include anxiety, depressed mood, fatigue/low energy, frequent tearfulness, medical problems, weight loss, and worry. Relevant changes in medical status: none reported, observed, or indicated. Current self-destructive behavior patterns/risk factors reported or indicated during session: none indicated. Level of functioning was average. Objective: Connor was seen in his hospital room at [facility]. Connor was oriented to person, place, time, and situation. Overall appearance was unremarkable clinically. Alva approach to the session was cooperative. Mood was depressed with full range affect. Eye contact was good. Tone of voice was normal and controlled. Speech was of normal rate and flow. Thought processes were found to be appropriate and focused during the appointment. Thought content appeared normal. Psychomotor functioning was within normal limits. Insight was average. Concentration was good. Alva style of interacting during the appointment was appropriate and motivated. Assessment: Interventions utilized during todays appointment included active listening, anxiety management training, cognitive restructuring, confrontation of self-defeating attitudes, feedback, problem solving training, and supportive maintenance. Connor appeared to have some deterioration in anxiety/tension since the last appointment one week ago. Overall, an average level of motivation was displayed towards treatment goals. Alva capacity to make changes/decisions is fair. Diagnostic Impressions: ICD-10: F43.23 Adjustment Disorder with Mixed Anxiety and Depressed Mood Plan: The appointment ended on time. The current treatment/therapy plan will continue for the present time without significant modification. Connor is recommended to reschedule for outpatient psychotherapy when he is dismissed from the hospital. Progress Notes/Assess & Plan Date Seen 07/07/18 Time Seen by Provider: 13:10 Assess & Plan/Chief Complaint Connor is recommended to reschedule for outpatient psychotherapy when he is dismissed from the hospital. GALI PLASCENCIA Jul 07, 2018 14:53
[2018-07-07] MEDS: ENOXAPARIN 30 MG/0.3 ML (LOVENOX) SYR SC SCH (14:57)
[2018-07-07 18:00] VITALS: BP 142/75
[2018-07-07] MEDS: POLYETHYLENE GLYCOL 17 GM (MIRALAX) PACK PEG SCH (19:38)
[2018-07-07] MEDS: MELATONIN 3 MG TABLET PEG SCH (21:37)
[2018-07-07] MEDS: ZOLPIDEM 5 MG (AMBIEN) TAB PEG SCH (21:37)
[2018-07-08 06:07] VITALS: BP 160/87
[2018-07-08] MEDS: SUCRALFATE 1 GM (CARAFATE) TAB PEG SCH ×3 (06:16→17:45)
[2018-07-08] MEDS: NYSTATIN ORAL SUSP 5 ML UDC PO SCH ×3 (06:16→17:45)
[2018-07-08] MEDS: predniSONE 10 MG TAB PEG SCH (06:19)
[2018-07-08] MEDS: inSUlin ASPART (NovoLOG) 1 UNIT/0.01 ML (CHARGE PER UNIT) SC SCH ×3 (06:30→18:00)
[2018-07-08] MEDS: PANTOPRAZOLE 40 MG (PROTONIX) VIAL IV SCH ×2 (07:50→20:58)
[2018-07-08] MEDS: buPROPion 100 MG (WELLBUTRIN) TAB PEG SCH ×2 (07:53→20:58)
[2018-07-08] MEDS: ALPRAZolam 0.5 MG (XANAX) TAB PEG PRN ×2 (07:53→16:22)
[2018-07-08] MEDS: METOCLOPRAMIDE 10MG/10ML ORAL SOL(REGLAN) UDC PEG SCH ×2 (07:53→20:58)
[2018-07-08] MEDS: FOLIC ACID 1 MG TAB PEG SCH (07:53)
[2018-07-08] MEDS: inSUlin DETERMIR 1 UNIT/0.01 ML (LEVEMIR) CHARGE PER UNIT SQ SCH (08:07)
[2018-07-08] MEDS: CHOLESTYRAMINE 4 GM (QUESTRAN LITE, PREVALITE) PKT PEG SCH ×3 (09:00→20:58)
--- NOTE | 2018-07-08 10:36 | Occ Therapy Progress Note ---
Therapy Progress Note Pt currently out of facility at dialysis. Pt not seen for OT services this date. MAIKEL SORENSON OT Jul 08, 2018 10:36
[2018-07-08] MEDS ORDERED: FLUCONAZOLE 200 MG/100 ML 100 ML IV NR (13:30)
[2018-07-08] MEDS: CARVEDILOL 12.5 MG (COREG) TABLET PEG SCH ×2 (13:32→20:58)
[2018-07-08] MEDS: LACTOBACILLUS ACIDOPHILUS (PROBIOTIC) CAPSULE PEG SCH ×2 (13:32→20:58)
[2018-07-08 13:34] VITALS: BP 119/77
[2018-07-08] MEDS: ENOXAPARIN 30 MG/0.3 ML (LOVENOX) SYR SC SCH (16:22)
[2018-07-08 17:40] VITALS: BP 93/59
[2018-07-08] MEDS: POLYETHYLENE GLYCOL 17 GM (MIRALAX) PACK PEG SCH (20:46)
[2018-07-08] MEDS: ZOLPIDEM 5 MG (AMBIEN) TAB PEG SCH (20:58)
[2018-07-08] MEDS: MELATONIN 3 MG TABLET PEG SCH (20:58)
[2018-07-09] MEDS: SUCRALFATE 1 GM (CARAFATE) TAB PEG SCH ×4 (00:14→17:33)
[2018-07-09] MEDS: NYSTATIN ORAL SUSP 5 ML UDC PO SCH ×4 (00:14→17:33)
[2018-07-09] MEDS: ALPRAZolam 0.5 MG (XANAX) TAB PEG PRN ×3 (00:15→17:33)
[2018-07-09] MEDS: inSUlin ASPART (NovoLOG) 1 UNIT/0.01 ML (CHARGE PER UNIT) SC SCH ×4 (00:24→18:00)
[2018-07-09] MEDS: predniSONE 10 MG TAB PEG SCH (05:18)
[2018-07-09 05:27] VITALS: BP 148/79
[2018-07-09] MEDS: inSUlin DETERMIR 1 UNIT/0.01 ML (LEVEMIR) CHARGE PER UNIT SQ SCH (08:07)
[2018-07-09] MEDS: PANTOPRAZOLE 40 MG (PROTONIX) VIAL IV SCH ×2 (08:07→20:26)
[2018-07-09] MEDS: FLUCONAZOLE 200 MG/100 ML 50 ML, EMPTY IV BAG (PVC) 1 EA IV SCH ×2 (08:09)
[2018-07-09] MEDS: LACTOBACILLUS ACIDOPHILUS (PROBIOTIC) CAPSULE PEG SCH ×2 (08:41→20:27)
[2018-07-09] MEDS: FOLIC ACID 1 MG TAB PEG SCH (08:42)
[2018-07-09] MEDS: buPROPion 100 MG (WELLBUTRIN) TAB PEG SCH ×2 (08:42→20:27)
[2018-07-09] MEDS: CHOLESTYRAMINE 4 GM (QUESTRAN LITE, PREVALITE) PKT PEG SCH ×3 (08:42→20:27)
[2018-07-09] MEDS: CARVEDILOL 12.5 MG (COREG) TABLET PEG SCH ×2 (08:42→20:27)
[2018-07-09] MEDS: METOCLOPRAMIDE 10MG/10ML ORAL SOL(REGLAN) UDC PEG SCH ×2 (08:42→20:27)
[2018-07-09] MEDS: CATHETER FLUSH 10 ML SYR IV SCH ×2 (14:15→20:28)
[2018-07-09] MEDS: ENOXAPARIN 30 MG/0.3 ML (LOVENOX) SYR SC SCH (16:10)
[2018-07-09 18:00] VITALS: BP 168/91
--- NOTE | 2018-07-09 18:21 | PM & R (SOAP) Progress Note ---
Subjective This was a face to face visit with the patient. Date Seen by Provider: Jul 09, 2018 Time Seen by Provider: 17:55 Subjective/Events-last exam Patient was seen in his room this evening Patient SBA for transfers Discussed case with RN Patient with tonque coated white Diflucan ordered for presumed oral thrush refractory to Mycostatin swish and spit Date Identified: Jul 09, 2018 Time Identified: 18:00 Medication Intervention: Diflucan for oral thrush Review of Systems Neurological: Weakness Objective Physician Exam Last Set of Vital Signs Vital Signs Date Time Temp Pulse Resp B/P (MAP) Pulse Ox O2 Delivery O2 Flow Rate FiO2 07/09/18 09:00 Room Air 07/09/18 05:27 97.9 73 18 148/79 (102) 99 Capillary Refill : Less Than 3 Seconds I&O Intake and Output 07/09/18 00:00 Intake Total 1656 ml Output Total 625 ml Balance 1031 ml Intake Oral 0 ml IV Total 100 ml Tube Feeding 1056 ml Other 500 ml Output Urine Total 625 ml # Voids 1 # Bowel Movements 2 General: Alert, Oriented X3, Cooperative, No Acute Distress, Other (Afebrile P =89 RR 16 BP 106/76 02 sats 100%% RA) HEENT: PERRLA, EOMI, Mucous Memb Moist/[place] Neck: Supple, No JVD, Other (Trach functioning) Lungs: Clear to Auscultation Heart: Regular Rate Abdomen: Normal Bowel Sounds, Soft, No Tenderness, Other (Peg tube in place HD catheter in left anterior chest) Extremities: No Edema Skin: Other (Stage 4 pressure sore sacrum) Neuro: Other (Generalized weakness Lower limbs >Upper and RT lower limb >left) Psych/Mental Status: Mental Status NL Results Lab Data Laboratory Tests 07/06/18 23:45: Glucometer 121H 07/07/18 05:10: Glucometer 140H 07/07/18 12:25: Glucometer 214H 07/07/18 17:46: Glucometer 106 07/07/18 23:49: Glucometer 101 07/08/18 06:07: Glucometer 141H 07/08/18 13:27: Glucometer 124H 07/08/18 18:37: Glucometer 122H 07/09/18 00:14: Glucometer 104 07/09/18 05:21: Glucometer 119H 07/09/18 11:55: Glucometer 214H Assessment/Plan Assessment and Plan 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 resulting Oral Trhrush Diflucan ordered ESRD on Dialysis TIW N/V improved with meds Diarrhea improved with meds DM with hypoglycemia improved with adjustment in Insulin Hypokalemia replaced Vocal cord paralysis NPO on tube feeds Severe protein calorie malnutrition on tube feeds Sacral pressure sore DR Russell following CAD s/p PR Anxiety meds adjusted A FIB controlled with meds Plan Continue PT/OT/Wound care Next Team Conference 07-12-18 See if tube feeds can be changed to bolus Co-Morbidities that are continuing to impact the rehab process: (include details ) FISH MACIAS MD Jul 09, 2018 18:21
[2018-07-09] MEDS: ZOLPIDEM 5 MG (AMBIEN) TAB PEG SCH (20:27)
[2018-07-09] MEDS: MELATONIN 3 MG TABLET PEG SCH (20:27)
[2018-07-09] MEDS: POLYETHYLENE GLYCOL 17 GM (MIRALAX) PACK PEG SCH (20:27)
[2018-07-10] MEDS: SUCRALFATE 1 GM (CARAFATE) TAB PEG SCH ×4 (00:13→17:01)
[2018-07-10] MEDS: inSUlin ASPART (NovoLOG) 1 UNIT/0.01 ML (CHARGE PER UNIT) SC SCH ×4 (00:19→19:15)
[2018-07-10] MEDS: ALPRAZolam 0.5 MG (XANAX) TAB PEG PRN ×3 (01:33→19:37)
[2018-07-10 05:02] VITALS: BP 170/86
[2018-07-10] MEDS: predniSONE 10 MG TAB PEG SCH (06:45)
[2018-07-10] MEDS: CATHETER FLUSH 10 ML SYR IV SCH ×3 (06:46→21:53)
[2018-07-10] MEDS: FLUCONAZOLE 200 MG/100 ML 50 ML, EMPTY IV BAG (PVC) 1 EA IV SCH ×2 (08:03)
[2018-07-10] MEDS: PANTOPRAZOLE 40 MG (PROTONIX) VIAL IV SCH ×2 (08:03→20:18)
[2018-07-10] MEDS: METOCLOPRAMIDE 10MG/10ML ORAL SOL(REGLAN) UDC PEG SCH ×2 (08:04→20:19)
[2018-07-10] MEDS: buPROPion 100 MG (WELLBUTRIN) TAB PEG SCH ×2 (08:04→20:19)
[2018-07-10] MEDS: CARVEDILOL 12.5 MG (COREG) TABLET PEG SCH ×2 (08:04→20:19)
[2018-07-10] MEDS: FOLIC ACID 1 MG TAB PEG SCH (08:04)
[2018-07-10] MEDS: CHOLESTYRAMINE 4 GM (QUESTRAN LITE, PREVALITE) PKT PEG SCH ×3 (08:04→21:52)
[2018-07-10] MEDS: LACTOBACILLUS ACIDOPHILUS (PROBIOTIC) CAPSULE PEG SCH ×2 (08:04→20:19)
[2018-07-10] MEDS: inSUlin DETERMIR 1 UNIT/0.01 ML (LEVEMIR) CHARGE PER UNIT SQ SCH (08:05)
[2018-07-10] MEDS: DARBEPOETIN 100 MCG/ML (ARANESP) 1 ML VIAL SC SCH (10:14)
--- NOTE | 2018-07-10 11:04 | Physical Therapy Daily Note ---
PT Daily Note-Current Subjective Pt. agreeable to Rx, states he feels he is making gradual progress. Has 2 steps at home at one entrance and no steps at the other. Pain Numeric Pain Scale: 0-No Pain Mental Status Patient Orientation: Normal For Age Attachments: PEG Tube, Other-See Comments (AFO ) Transfers Functional [place] Measure 0=Not Assessed/NA 4=Minimal Assistance 1=Total Assistance 5=Supervision or Setup 2=Maximal Assistance 6=Modified [place] 3=Moderate Assistance 7=Complete IndependenceIRFPAI Quality Coding Scale 6 Independent with activity with or without an assistive device 5 Patient requires set up or clean up by helper. Patient completes activity by themselves 4 Supervision or touching assist (CGA). [place] provide cues , steadying assist 3 The helper provides less than half the effort to complete the activity 2 The helper provides more than half the effort to complete the activity 1 Dependent. The helper does all the effort to complete an activity 7 Patient refused to complete or attempt activity 9 The patient did not perform the activity before the current illness or injury 88 Not attempted due to Medical conditions or safety concerns Transfers (B, C, W/C) (FIM): 5 Scootin Rollin Supine to/from Sit: 5 Sit to/from Stand: 5 Bed to/from Chair: 5 Weight Bearing Right Lower Extremity: Right Full Weight Bearing Left Lower Extremity: Left Full Weight Bearing Gait Training Does the Patient Walk?: Yes Gait (FIM): 5 Distance (FIM): 3=150 ft (150x2, 75 x2) Gait Level of Assist: 5 Gait Persons Needed: 1 Gait Assistive Device: FWW Stair Training Stair Training: Handrails/: 2 handrails Stairs (FIM): 2 #of Steps: 4 Stairs: Pattern: Step to Level of Assist: 4 instruction for sequence Exercises Supine Ex: Bridging, Ankle pumps, Quad Set, Rolling, Glut sets, Heel Slides, Short Arc Quads, Scooting, Straight leg raise, Hip abd/add Supine Reps: 15 NuStep Minutes: 12 NuStep Workload: 2 Treatments leg presses on nustep x 12 Assessment Current Status: Good Progress improving steadily PT Short Term Goals Short Term Goals Time Frame: Jun 29, 2018 Transfers (B,C,W/C) (FIM): 5 Gait (FIM): 5 Distance (FIM): 3=150 ft Gait Distance Comment: 200' Gait Level of Assist: 5 Gait Assistive Device: FWW Wheelchair Distance: 250',150'x2 PT Fabrication Mig Welder Goals Skilled Nursing Goals PT Skilled Nursing Goals Time Frame: Jul 13, 2018 Transfers (B,C,W/C) (FIM): 6 Sit to Lying (QC): 6 Lying-Sitting on Side/Bed(QC): 6 Sit to Stand (QC): 6 Rollin Roll Left to Right (QC): 6 Chair/Mro-lk-Mzydt Xfer(QC): 6 Car Transfer (QC): 6 Does the Patient Walk: Yes Gait (FIM): 6 Distance: SEE PT GOALS Walk 10 feet (QC): 6 Walk 10ft-Uneven Surface(QC): 6 Walk 50ft with 2 Turns (QC): 6 Walk 150 ft (QC): 6 Gait Level of Assist: 6 Gait Assistive Device: FWW Stairs (FIM): 5 (household exception) # of Steps: 4 1 Step (curb) (QC): 6 4 Steps (QC): 6 12 Steps (QC): 0 Picking up an Object (QC): 4 PT Plan Treatment/Plan Treatment Plan: Continue Plan of Care Treatment Plan: Bed Mobility, Concurrent Therapy, Education, Functional Activity Camryn, Functional Strength, Group Therapy, Gait, Safety, Therapeutic Exercise, Transfers Treatment Duration: Jul 13, 2018 Frequency: Modified Program (IRF) (due to dialysis) Estimated Hrs Per Day: 1.5 hours per day Patient and/or Family Agrees t: Yes Safety Risks/Education Patient Education: Gait Training, Transfer Techniques, Steps, Correct Positioning, Safety Issues Teaching Recipient: Patient Teaching Methods: Demonstration, Discussion Response to Teaching: Verbalize Understanding, Return Demonstration, Reinforcement Needed Time/GCodes Time In: 1000 Time Out: 1100 Total Billed Treatment Time: 60 Total Billed Treatment 1,GT20m,EX25m,FA15m G Codes Necessary: DARYL Cain VICTORIAN LITERATURE PROFESSOR Jul 10, 2018 11:04
[2018-07-10] MEDS: SCOPOLAMINE 1.5 MG (TRANSDERM-SCOP) PATCH TOP SCH (11:10)
--- NOTE | 2018-07-10 12:47 | Occupational Ther Daily Note ---
OT Current Status-Daily Note Subjective Pt alert, lying in bed. No c/o pain at this time. Pt agrees to therapy. Mental Status/Objective Patient Orientation: Person, Place, Time, Situation Functional [place] Measure 0=Not Assessed/NA 4=Minimal Assistance 1=Total Assistance 5=Supervision or Setup 2=Maximal Assistance 6=Modified [place] 3=Moderate Assistance 7=Complete [place] ADL-Treatment Functional [place] Measure 0=Not Assessed/NA 4=Minimal Assistance 1=Total Assistance 5=Supervision or Setup 2=Maximal Assistance 6=Modified [place] 3=Moderate Assistance 7=Complete IndependenceIRFPAI Quality Coding Scale 6 Independent with activity with or without an assistive device 5 Patient requires set up or clean up by helper. Patient completes activity by themselves 4 Supervision or touching assist (CGA). [place] provide cues , steadying assist 3 The helper provides less than half the effort to complete the activity 2 The helper provides more than half the effort to complete the activity 1 Dependent. The helper does all the effort to complete an activity 7 Patient refused to complete or attempt activity 9 The patient did not perform the activity before the current illness or injury 88 Not attempted due to Medical conditions or safety concerns Grooming (FIM): 6 (Pt completes in sitting position in front of sink. ) Oral Hygiene (QC): 6 Lower Body Dressing (FIM): 4 (Assist to adjust AE around toes when donning socks. Verbal cue needed on technique using AE to don shoes. Assist in donning shoes over heels. ) Lower Body Dressing (QC): 4 On/Off Footwear (QC): 4 Transfers (B, C, W/C) (FIM): 6 (Supervision, HOB raised pt able to go EOB by self using side rail for leverage. Pt uses FWW for stability on sit to stand. ) Pt took increased time due to length of orte[place] using electric razor first and then safety razor to finish. After therapy, pt laying in bed with call light/ phone within reach. All needs met in room. Education OT Patient Education: Correct positioning, Use of adapted equipment Teaching Recipient: Patient Teaching Methods: Demonstration, Discussion Response to Teaching: Verbalize Understanding, Return Demonstration, Reinforcement Needed OT Short Term Goals Short Term Goals Time Frame: Jul 06, 2018 Grooming(FIM): 5 Bathing(FIM): 4 Upper Body Dressing(FIM): 4 Lower Body Dressing(FIM): 4 Toileting(FIM): 4 Transfers (B,C,W/C) (FIM): 5 Toilet/Commode Transfer(FIM): 5 Shower Transfer(FIM): 4 Additional Short Term Goals: 1-Demonstrate ADL Tasks, 2-Verbalize Understanding , 3-ImproveStrength/Camryn 1=Demonstrate adherence to instructed precautions during ADL tasks. 2=Patient will verbalize/demonstrate understanding of assistive devices/ modifications for ADL. 3=Patient will improve strength/tolerance for activity to enable patient to perform ADL's. OT Cash Accountant Goals Cash Accountant Goals Time Frame: Jul 20, 2018 Groomin Oral Hygiene (QC): 4 Bathing(FIM): 5 Shower/Bathe Self (QC): 4 Upper Body Dressing(FIM): 5 Upper Body Dressing (QC): 4 Lower Body Dressing(FIM): 5 Lower Body Dressing (QC): 4 On/Off Footwear (QC): 4 Toileting(FIM): 5 Toileting Hygiene (QC): 4 Transfers (B,C,W/C) (FIM): 6 Toilet/Commode Transfer(FIM): 6 Toilet/Commode Transfer (QC): 6 Shower Transfer(FIM): 5 Additional Goals: 1-Demonstrate ADL Tasks, 2-Verbalize Understanding, 3- ImproveStrength/Camryn 1=Demonstrate adherence to instructed precautions during ADL tasks. 2=Patient will verbalize/demonstrate understanding of assistive devices/ modifications for ADL. 3=Patient will improve strength/tolerance for activity to enable patient to perform ADL's. OT Education/Plan Discharge Recommendations Plan/Recommendations: Continue POC Treatment Plan/Plan of Care Patient would benefit from OT for education, treatment and training to promote independence in ADL's, mobility, safety and/or upper extremity function for ADL' s. Plan of Care: ADL Retraining, Functional Mobility, Group Exercise/Act as Ind, UE Funct Exercise/Act Treatment Duration: Jul 20, 2018 Frequency: At least 5 of 7 days/Wk (IRF) Estimated Hrs Per Day: 1.5 hours per day Agreement: Yes Rehab Potential: Fair Time/GCodes Start Time: 09:08 Stop Time: 10:00 Total Time Billed (hr/min): 52 Billed Treatment Time 1 visit- ADL 3 (52 min) VIPUL KIRK Jul 10, 2018 12:47
--- NOTE | 2018-07-10 13:08 | Occupational Ther Daily Note ---
OT Current Status-Daily Note Subjective Pt alert, lying in bed. No c/o pain. Nrsg present in room. Pt agrees to therapy and states "can we go out and get some fresh air?" Mental Status/Objective Patient Orientation: Person, Place, Time, Situation Functional [place] Measure 0=Not Assessed/NA 4=Minimal Assistance 1=Total Assistance 5=Supervision or Setup 2=Maximal Assistance 6=Modified [place] 3=Moderate Assistance 7=Complete [place] ADL-Treatment Functional [place] Measure 0=Not Assessed/NA 4=Minimal Assistance 1=Total Assistance 5=Supervision or Setup 2=Maximal Assistance 6=Modified [place] 3=Moderate Assistance 7=Complete IndependenceIRFPAI Quality Coding Scale 6 Independent with activity with or without an assistive device 5 Patient requires set up or clean up by helper. Patient completes activity by themselves 4 Supervision or touching assist (CGA). [place] provide cues , steadying assist 3 The helper provides less than half the effort to complete the activity 2 The helper provides more than half the effort to complete the activity 1 Dependent. The helper does all the effort to complete an activity 7 Patient refused to complete or attempt activity 9 The patient did not perform the activity before the current illness or injury 88 Not attempted due to Medical conditions or safety concerns Transfers (B, C, W/C) (FIM): 6 (HOB rasied, pt able to use side rail for leverage to go from supine to EOB. Pt uses FWW for stability on SPT to w/c. ) Other Treatment Pt maneuver self at w/c level around hospital practicing on different inclines/ declines and surfaces increasing UE strength and activity tolerance needed for daily functional tasks. ZEPEDA assisted in manipulating IV pole around facility. Pt had no complaints of nausea and needed fewer rest breaks throughout therapy session. After therapy, pt lying in bed with call light/phone within reach. All needs met in room. OT Short Term Goals Short Term Goals Time Frame: Jul 06, 2018 Grooming(FIM): 5 Bathing(FIM): 4 Upper Body Dressing(FIM): 4 Lower Body Dressing(FIM): 4 Toileting(FIM): 4 Transfers (B,C,W/C) (FIM): 5 Toilet/Commode Transfer(FIM): 5 Shower Transfer(FIM): 4 Additional Short Term Goals: 1-Demonstrate ADL Tasks, 2-Verbalize Understanding , 3-ImproveStrength/Camryn 1=Demonstrate adherence to instructed precautions during ADL tasks. 2=Patient will verbalize/demonstrate understanding of assistive devices/ modifications for ADL. 3=Patient will improve strength/tolerance for activity to enable patient to perform ADL's. OT Halfway Goals Public Area Supervisor Goals Time Frame: Jul 20, 2018 Groomin Oral Hygiene (QC): 4 Bathing(FIM): 5 Shower/Bathe Self (QC): 4 Upper Body Dressing(FIM): 5 Upper Body Dressing (QC): 4 Lower Body Dressing(FIM): 5 Lower Body Dressing (QC): 4 On/Off Footwear (QC): 4 Toileting(FIM): 5 Toileting Hygiene (QC): 4 Transfers (B,C,W/C) (FIM): 6 Toilet/Commode Transfer(FIM): 6 Toilet/Commode Transfer (QC): 6 Shower Transfer(FIM): 5 Additional Goals: 1-Demonstrate ADL Tasks, 2-Verbalize Understanding, 3- ImproveStrength/Camryn 1=Demonstrate adherence to instructed precautions during ADL tasks. 2=Patient will verbalize/demonstrate understanding of assistive devices/ modifications for ADL. 3=Patient will improve strength/tolerance for activity to enable patient to perform ADL's. OT Education/Plan Discharge Recommendations Plan/Recommendations: Continue POC Treatment Plan/Plan of Care Patient would benefit from OT for education, treatment and training to promote independence in ADL's, mobility, safety and/or upper extremity function for ADL' s. Plan of Care: ADL Retraining, Functional Mobility, Group Exercise/Act as Ind, UE Funct Exercise/Act Treatment Duration: Jul 20, 2018 Frequency: At least 5 of 7 days/Wk (IRF) Estimated Hrs Per Day: 1.5 hours per day Agreement: Yes Rehab Potential: Fair Time/GCodes Start Time: 11:22 Stop Time: 12:00 Total Time Billed (hr/min): 38 Billed Treatment Time 1 visit- EX 3 (38 min) VIPUL KIRK Jul 10, 2018 13:08
[2018-07-10] MEDS: ONDANSETRON 4 MG/2 ML (SDV) Z0FRAN IVP PRN ×2 (13:54→22:39)
--- NOTE | 2018-07-10 14:53 | Physical Therapy Daily Note ---
PT Daily Note-Current Subjective pt in bed pre tx, agrees to PT, no pain to report Appearance pt in bed post tx, w/ phone, call light, tray, all needs met Mental Status Patient Orientation: Normal For Age Attachments: PEG Tube Transfers Functional [place] Measure 0=Not Assessed/NA 4=Minimal Assistance 1=Total Assistance 5=Supervision or Setup 2=Maximal Assistance 6=Modified [place] 3=Moderate Assistance 7=Complete IndependenceIRFPAI Quality Coding Scale 6 Independent with activity with or without an assistive device 5 Patient requires set up or clean up by helper. Patient completes activity by themselves 4 Supervision or touching assist (CGA). [place] provide cues , steadying assist 3 The helper provides less than half the effort to complete the activity 2 The helper provides more than half the effort to complete the activity 1 Dependent. The helper does all the effort to complete an activity 7 Patient refused to complete or attempt activity 9 The patient did not perform the activity before the current illness or injury 88 Not attempted due to Medical conditions or safety concerns Transfers (B, C, W/C) (FIM): 5 Scootin Rollin Supine to/from Sit: 5 Sit to/from Stand: 5 SBA for all transfers Weight Bearing Right Lower Extremity: Right Full Weight Bearing Left Lower Extremity: Left Full Weight Bearing Gait Training Does the Patient Walk?: Yes Gait (FIM): 5 Distance: 200', 150' Gait Level of Assist: 5 Gait Persons Needed: 1 Gait Assistive Device: FWW pt ambulates to/from gym w/ SBA using FWW, gait is steady w/ no LOB, pt demonstrates flexed posture and needs cues to stand straight GT in // bars unsupported Cate 10' Exercises Standing: Mini squats, Stepping over objects Standing Reps: 30 step over airex pad in // bars Treatments gait training, functional strengthening Assessment Current Status: Fair Progress improved gait distance, endurance, and balance PT Short Term Goals Short Term Goals Time Frame: Jun 29, 2018 Transfers (B,C,W/C) (FIM): 5 Gait (FIM): 5 Distance (FIM): 3=150 ft Gait Distance Comment: 200' Gait Level of Assist: 5 Gait Assistive Device: FWW Wheelchair Distance: 250',150'x2 PT Senior Care Goals Senior Care Goals PT Senior Care Goals Time Frame: Jul 13, 2018 Transfers (B,C,W/C) (FIM): 6 Sit to Lying (QC): 6 Lying-Sitting on Side/Bed(QC): 6 Sit to Stand (QC): 6 Rollin Roll Left to Right (QC): 6 Chair/[id number]-Xcqwn Xfer(QC): 6 Car Transfer (QC): 6 Does the Patient Walk: Yes Gait (FIM): 6 Distance: SEE PT GOALS Walk 10 feet (QC): 6 Walk 10ft-Uneven Surface(QC): 6 Walk 50ft with 2 Turns (QC): 6 Walk 150 ft (QC): 6 Gait Level of Assist: 6 Gait Assistive Device: FWW Stairs (FIM): 5 (household exception) # of Steps: 4 1 Step (curb) (QC): 6 4 Steps (QC): 6 12 Steps (QC): 0 Picking up an Object (QC): 4 PT Plan Problem List Problem List: Activity Tolerance, Functional Strength, Safety, Balance, Gait, Transfer, Bed Mobility Treatment/Plan Treatment Plan: Continue Plan of Care Treatment Plan: Bed Mobility, Concurrent Therapy, Education, Functional Activity Camryn, Functional Strength, Group Therapy, Gait, Safety, Therapeutic Exercise, Transfers Treatment Duration: Jul 13, 2018 Frequency: Modified [place] (IRF) (due to dialysis) Estimated Hrs Per Day: 1.5 hours per day Patient and/or Family Agrees t: Yes Safety Risks/Education Patient Education: Gait Training, Transfer Techniques, Correct Positioning, Safety Issues Teaching Recipient: Patient Teaching Methods: Demonstration, Discussion Response to Teaching: Reinforcement Needed Time/GCodes Time In: 1300 Time Out: 1330 Total Billed Treatment Time: 30 Total Billed Treatment 1 visit GT 15' EX 15' JOHN MOYER PT Jul 10, 2018 14:53
[2018-07-10 16:30] VITALS: BP 153/92
[2018-07-10] MEDS: ENOXAPARIN 30 MG/0.3 ML (LOVENOX) SYR SC SCH (16:44)
[2018-07-10] MEDS: MELATONIN 3 MG TABLET PEG SCH (20:19)
[2018-07-10] MEDS: ZOLPIDEM 5 MG (AMBIEN) TAB PEG SCH (20:19)
[2018-07-10] MEDS: POLYETHYLENE GLYCOL 17 GM (MIRALAX) PACK PEG SCH (20:20)
--- NOTE | 2018-07-10 21:49 | PM & R (SOAP) Progress Note ---
Subjective This was a face to face visit with the patient. Date Seen by Provider: Jul 10, 2018 Time Seen by Provider: 20:50 Subjective/Events-last exam Patient was seen in his room this evening Patient SBA for transfers.SW has requested a letter of medical necessity for various DME in anticipation of discharge to home.Will se if General Helper can make recs re converting Tube feeds to bolus-see orders Date Identified: Jul 10, 2018 Time Identified: 20:50 Medication Intervention: Adjust Tube feeds to bolus as able Objective Physician Exam Last Set of Vital Signs Vital Signs Date Time Temp Pulse Resp B/P (MAP) Pulse Ox O2 Delivery O2 Flow Rate FiO2 07/10/18 20:44 Room Air 07/10/18 16:30 98.7 79 16 153/92 (112) 99 Capillary Refill : Less Than 3 Seconds I&O Intake and Output 07/10/18 00:00 Intake Total 2173 ml Output Total 800 ml Balance 1373 ml Intake Oral 0 ml IV Total 50 ml Tube Feeding 1573 ml Other 550 ml Output Urine Total 800 ml # Bowel Movements 4 General: Alert, Oriented X3, Cooperative, No Acute Distress, Other (Afebrile P =89 RR 16 BP 106/76 02 sats 100%% RA) HEENT: PERRLA, EOMI, Mucous Memb Moist/[place] Neck: Supple, No JVD, Other (Trach functioning) Lungs: Clear to Auscultation Heart: Regular Rate Abdomen: Normal Bowel Sounds, Soft, No Tenderness, Other (Peg tube in place HD catheter in left anterior chest) Extremities: No Edema Skin: Other (Stage 4 pressure sore sacrum) Neuro: Other (Generalized weakness Lower limbs >Upper and RT lower limb >left) Psych/Mental Status: Mental Status NL Results Lab Data Laboratory Tests 07/07/18 23:49: Glucometer 101 07/08/18 06:07: Glucometer 141H 07/08/18 13:27: Glucometer 124H 07/08/18 18:37: Glucometer 122H 07/09/18 00:14: Glucometer 104 07/09/18 05:21: Glucometer 119H 07/09/18 11:55: Glucometer 214H 07/09/18 18:09: Glucometer 132H 07/10/18 00:19: Glucometer 123H 07/10/18 05:07: Glucometer 128H 07/10/18 11:09: Glucometer 160H 07/10/18 19:02: Glucometer 118H Assessment/Plan Assessment and Plan 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 Oral Thrush placed on Diflucan ESRD on Dialysis TIW N/V improved with meds Diarrhea improved with meds DM with hypoglycemia improved with adjustment in meds Hypokalemia treated Vocal cord paralysis NPO on Tube feeds Severe Protein caloire malnutrition on Tube feeds Sacral pressure sore DR Russell following CAD s/p stent Anxiety meds adjusted A FIB controlled with meds Plan Continue PT/OT/Wound care Team Conference 07-12-18 Discusse discharge date with SW /Team Arrange for variety of DME that patient will require upon discharge Note re DME requirements Due to possible airway obstruction with trach and risk for aspiration due to Tube feedings this patient would benefit from a reclining Wheelchair.Due to the patients height and lack of upper body trunk support ,he would also benefit from a tall back W/C. Due to Stage IV Coccyx wound,patient would benefit from a low air loss mattress Due to continuous tube feedings and the need for the head of the bed to be elevated more than 30 degrees due to aspiration risks,patient would benefit from a hospital bed Patient has difficulties raising and clearing secretions and requires occasional suction via Perm Trach. Co-Morbidities that are continuing to impact the rehab process: (include details ) FISH MACIAS MD Jul 10, 2018 21:49
[2018-07-10] MEDS: PROMETHAZINE INJ 25 MG/ML (PHENERGAN) AMP IVP PRN (23:57)
[2018-07-11] MEDS: ALPRAZolam 0.5 MG (XANAX) TAB PEG PRN ×3 (03:24→22:01)
[2018-07-11 05:48] VITALS: BP 165/85
[2018-07-11] MEDS: inSUlin ASPART (NovoLOG) 1 UNIT/0.01 ML (CHARGE PER UNIT) SC SCH ×4 (06:00→18:17)
[2018-07-11] MEDS: SUCRALFATE 1 GM (CARAFATE) TAB PEG SCH ×3 (06:27→14:02)
[2018-07-11] MEDS: CATHETER FLUSH 10 ML SYR IV SCH ×3 (06:27→22:01)
[2018-07-11] MEDS: predniSONE 10 MG TAB PEG SCH (06:27)
--- NOTE | 2018-07-11 07:59 | Occupational Ther Daily Note ---
OT Current Status-Daily Note Subjective Pt alert, lying in bed. Nrsg present in room. Nrsg stated that the pt did not have a very good night. Mental Status/Objective Patient Orientation: Person, Place, Time, Situation Functional [place] Measure 0=Not Assessed/NA 4=Minimal Assistance 1=Total Assistance 5=Supervision or Setup 2=Maximal Assistance 6=Modified [place] 3=Moderate Assistance 7=Complete [place] Attachments: PEG Tube, Other-See Comments (PICC) ADL-Treatment Functional [place] Measure 0=Not Assessed/NA 4=Minimal Assistance 1=Total Assistance 5=Supervision or Setup 2=Maximal Assistance 6=Modified [place] 3=Moderate Assistance 7=Complete IndependenceIRFPAI Quality Coding Scale 6 Independent with activity with or without an assistive device 5 Patient requires set up or clean up by helper. Patient completes activity by themselves 4 Supervision or touching assist (CGA). [place] provide cues , steadying assist 3 The helper provides less than half the effort to complete the activity 2 The helper provides more than half the effort to complete the activity 1 Dependent. The helper does all the effort to complete an activity 7 Patient refused to complete or attempt activity 9 The patient did not perform the activity before the current illness or injury 88 Not attempted due to Medical conditions or safety concerns Grooming (FIM): 6 (Mod I, pt completes in sitting position in front of sink. ) Oral Hygiene (QC): 6 Bathing (FIM): 6 (Pt completes using long handled sponge, shower bench, hand held shower and grabbars. ) Bathing Location: L Arm, R Arm, L Upper Leg, R Upper Leg, L Lower Leg ( including foot), R Lower Leg (including foot), Chest, Abdomen, Buttocks, Perineal Area Shower/Bathe Self (QC): 6 Upper Body (FIM): 5 (Set up. Pt able to don shirt by self in sitting position. ) Upper Body Dressing (QC): 5 Lower Body Dressing (FIM): 4 (Using AE pt able to don LE dressing, using FWW for stability in standing to hike pants over hips. Pt able to don socks using AE. Pt able to don L shoes by self using AE, assist on getting R shoe over heel due to AFO. ) Lower Body Dressing (QC): 4 On/Off Footwear (QC): 4 Transfers (B, C, W/C) (FIM): 6 (HOB raised, pt able to go from supine to EOB using bed rails for leverage. Pt uses FWW for stability on sit to stand.) Shower Transfer(FIM): 6 (Pt completes using grabbars, FWW, and shower bench for stability. ) Other Treatment Pt ambulated to therapy gym using FWW for stability. Pt completed fine motor tasks with 1# arm wts attached to B UE increasing fine motor skills and UE strength needed for daily functional tasks. Pt ambulated back to room using FWW for stability. Pt takes increased time to completed ADLs and had complaints of feeling nauseas during session. After therapy, pt lying in bed with call light/ phone within reach. All needs met in room. OT Short Term Goals Short Term Goals Time Frame: Jul 06, 2018 Grooming(FIM): 5 Bathing(FIM): 4 Upper Body Dressing(FIM): 4 Lower Body Dressing(FIM): 4 Toileting(FIM): 4 Transfers (B,C,W/C) (FIM): 5 Toilet/Commode Transfer(FIM): 5 Shower Transfer(FIM): 4 Additional Short Term Goals: 1-Demonstrate ADL Tasks, 2-Verbalize Understanding , 3-ImproveStrength/Camryn 1=Demonstrate adherence to instructed precautions during ADL tasks. 2=Patient will verbalize/demonstrate understanding of assistive devices/ modifications for ADL. 3=Patient will improve strength/tolerance for activity to enable patient to perform ADL's. OT Mcfp Goals Rn Examiner Goals Time Frame: Jul 20, 2018 Groomin Oral Hygiene (QC): 4 Bathing(FIM): 5 Shower/Bathe Self (QC): 4 Upper Body Dressing(FIM): 5 Upper Body Dressing (QC): 4 Lower Body Dressing(FIM): 5 Lower Body Dressing (QC): 4 On/Off Footwear (QC): 4 Toileting(FIM): 5 Toileting Hygiene (QC): 4 Transfers (B,C,W/C) (FIM): 6 Toilet/Commode Transfer(FIM): 6 Toilet/Commode Transfer (QC): 6 Shower Transfer(FIM): 5 Additional Goals: 1-Demonstrate ADL Tasks, 2-Verbalize Understanding, 3- ImproveStrength/Camryn 1=Demonstrate adherence to instructed precautions during ADL tasks. 2=Patient will verbalize/demonstrate understanding of assistive devices/ modifications for ADL. 3=Patient will improve strength/tolerance for activity to enable patient to perform ADL's. OT Education/Plan Discharge Recommendations Plan/Recommendations: Continue POC Treatment Plan/Plan of Care Patient would benefit from OT for education, treatment and training to promote independence in ADL's, mobility, safety and/or upper extremity function for ADL' s. Plan of Care: ADL Retraining, Functional Mobility, Group Exercise/Act as Ind, UE Funct Exercise/Act Treatment Duration: Jul 20, 2018 Frequency: At least 5 of 7 days/Wk (IRF) Estimated Hrs Per Day: 1.5 hours per day Agreement: Yes Rehab Potential: Fair Time/GCodes Start Time: 06:30 Stop Time: 08:00 Total Time Billed (hr/min): 90 Billed Treatment Time 1 visit- ADL 4 (60 min) EX 2 (30 min) VIPUL KIRK Jul 11, 2018 07:59
[2018-07-11] MEDS: FOLIC ACID 1 MG TAB PEG SCH (08:16)
[2018-07-11] MEDS: CARVEDILOL 12.5 MG (COREG) TABLET PEG SCH ×2 (08:16→20:14)
[2018-07-11] MEDS: PANTOPRAZOLE 40 MG (PROTONIX) VIAL IV SCH ×2 (08:16→20:14)
[2018-07-11] MEDS: CHOLESTYRAMINE 4 GM (QUESTRAN LITE, PREVALITE) PKT PEG SCH ×3 (08:16→23:05)
[2018-07-11] MEDS: LACTOBACILLUS ACIDOPHILUS (PROBIOTIC) CAPSULE PEG SCH ×2 (08:16→20:13)
[2018-07-11] MEDS: buPROPion 100 MG (WELLBUTRIN) TAB PEG SCH ×2 (08:16→20:13)
[2018-07-11] MEDS: inSUlin DETERMIR 1 UNIT/0.01 ML (LEVEMIR) CHARGE PER UNIT SQ SCH (08:16)
[2018-07-11] MEDS: METOCLOPRAMIDE 10MG/10ML ORAL SOL(REGLAN) UDC PEG SCH ×2 (08:16→20:13)
--- NOTE | 2018-07-11 08:48 | Physical Therapy Daily Note ---
PT Daily Note-Current Subjective Pt laying Supine in bed upon arrival. Pt agrees to PT although reports not sleeping well the last couple of nights so pt is tired. Dialysis calls during tx to move pt's appointment up so PT will work with pt this morning until leaving for Dialysis. Pain Location: No Pain Reported Mental Status Patient Orientation: Person, Place, Time, Situation Attachments: PEG Tube Transfers Functional [place] Measure 0=Not Assessed/NA 4=Minimal Assistance 1=Total Assistance 5=Supervision or Setup 2=Maximal Assistance 6=Modified [place] 3=Moderate Assistance 7=Complete IndependenceIRFPAI Quality Coding Scale 6 Independent with activity with or without an assistive device 5 Patient requires set up or clean up by helper. Patient completes activity by themselves 4 Supervision or touching assist (CGA). [place] provide cues , steadying assist 3 The helper provides less than half the effort to complete the activity 2 The helper provides more than half the effort to complete the activity 1 Dependent. The helper does all the effort to complete an activity 7 Patient refused to complete or attempt activity 9 The patient did not perform the activity before the current illness or injury 88 Not attempted due to Medical conditions or safety concerns Scootin Rollin Supine to/from Sit: 5 Sit to/from Stand: 5 Sit to Lying (QC): 5 Sit to Stand (QC): 5 Chair/Xkm-xk-Qxmqz Xfer(QC): 4 Bed to/from Chair: 4 Car Transfer (QC): 4 Weight Bearing Right Lower Extremity: Right Full Weight Bearing Left Lower Extremity: Left Full Weight Bearing Exercises Supine Ex: Ankle pumps, Quad Set, Glut sets, Straight leg raise, Hip abd/add Treatments Pt completes Supine Ex in bed with a couple short rest breaks. Pt gets notified that Dialysis appt being moved up. Nurse crushes meds & gives through PEG tube. Pt completes transfer from Supine to EOB at SBA, then EOB to [facility] [place] using SPT at CGA. Pt is propelled in [facility] to car for transportation to Dialysis. Pt completes car transfer w/o FWW at [facility]. Pt has all needs met at end of tx. PT will continue after pt returns from Dialysis. Assessment Current Status: Good Progress Pt completes Ex and transfers well. Pt is tired during tx though due to lack of sleep. PT Short Term Goals Short Term Goals Time Frame: Jun 29, 2018 Transfers (B,C,W/C) (FIM): 5 Gait (FIM): 5 Distance (FIM): 3=150 ft Gait Distance Comment: 200' Gait Level of Assist: 5 Gait Assistive Device: FWW Wheelchair Distance: 250',150'x2 PT Referral Management Liaison Goals Residential Goals PT Referral Management Liaison Goals Time Frame: Jul 13, 2018 Transfers (B,C,W/C) (FIM): 6 Sit to Lying (QC): 6 Lying-Sitting on Side/Bed(QC): 6 Sit to Stand (QC): 6 Rollin Roll Left to Right (QC): 6 Chair/Evt-vo-Gysyg Xfer(QC): 6 Car Transfer (QC): 6 Does the Patient Walk: Yes Gait (FIM): 6 Distance: SEE PT GOALS Walk 10 feet (QC): 6 Walk 10ft-Uneven Surface(QC): 6 Walk 50ft with 2 Turns (QC): 6 Walk 150 ft (QC): 6 Gait Level of Assist: 6 Gait Assistive Device: FWW Stairs (FIM): 5 (household exception) # of Steps: 4 1 Step (curb) (QC): 6 4 Steps (QC): 6 12 Steps (QC): 0 Picking up an Object (QC): 4 PT Plan Problem List Problem List: Activity Tolerance, Functional Strength, Gait Treatment/Plan Treatment Plan: Continue Plan of Care Treatment Plan: Bed Mobility, Concurrent Therapy, Education, Functional Activity Camryn, Functional Strength, Group Therapy, Gait, Safety, Therapeutic Exercise, Transfers Treatment Duration: Jul 13, 2018 Frequency: Modified Program (IRF) (due to dialysis) Estimated Hrs Per Day: 1.5 hours per day Patient and/or Family Agrees t: Yes Safety Risks/Education Patient Education: Transfer Techniques, Correct Positioning, Safety Issues Teaching Recipient: Patient Teaching Methods: Discussion Response to Teaching: Verbalize Understanding Time/GCodes Time In: 800 Time Out: 840 Total Billed Treatment Time: 40 Total Billed Treatment 1, EX x2 (25m) & FA (15m) G Codes Necessary: CONTRERAS Farris PTA Jul 11, 2018 08:48
[2018-07-11] MEDS: FLUCONAZOLE 200 MG/100 ML 50 ML, EMPTY IV BAG (PVC) 1 EA IV SCH ×2 (14:02)
--- NOTE | 2018-07-11 14:52 | PM & R (SOAP) Progress Note ---
Subjective This was a face to face visit with the patient. Date Seen by Provider: Jul 11, 2018 Time Seen by Provider: 14:35 Subjective/Events-last exam Patient was seen in his room this afternoon Discussed case with RN Patient tolerated Dialysis well Renal wants Carafate d/cd.Patient SBA for transfers.Nurse Receptionist feels patient needs to remain on Continuous feeds due to Fluctuating Accucheks and N/V in past Date Identified: Jul 11, 2018 Time Identified: 14:35 Medication Intervention: Renal requests d/c carafate will so order and monitor for any adverse actions Objective Physician Exam Last Set of Vital Signs Vital Signs Date Time Temp Pulse Resp B/P (MAP) Pulse Ox O2 Delivery O2 Flow Rate FiO2 07/11/18 09:00 Room Air 07/11/18 05:48 98.2 80 18 165/85 (111) 99 Capillary Refill : Less Than 3 Seconds I&O Intake and Output 07/11/18 00:00 Intake Total 1870 ml Output Total 1375 ml Balance 495 ml Intake Oral 0 ml IV Total 50 ml Tube Feeding 1320 ml Other 500 ml Output Urine Total 1375 ml # Bowel Movements 5 General: Alert, Oriented X3, Cooperative, No Acute Distress, Other (Afebrile P =89 RR 16 BP 106/76 02 sats 100%% RA) HEENT: PERRLA, EOMI, Mucous Memb Moist/[place] Neck: Supple, No JVD, Other (Trach functioning) Lungs: Clear to Auscultation Heart: Regular Rate Abdomen: Normal Bowel Sounds, Soft, No Tenderness, Other (Peg tube in place HD catheter in left anterior chest) Extremities: No Edema Skin: Other (Stage 4 pressure sore sacrum) Neuro: Other (Generalized weakness Lower limbs >Upper and RT lower limb >left) Psych/Mental Status: Mental Status NL Results Lab Data Laboratory Tests 07/08/18 18:37: Glucometer 122H 07/09/18 00:14: Glucometer 104 07/09/18 05:21: Glucometer 119H 07/09/18 11:55: Glucometer 214H 07/09/18 18:09: Glucometer 132H 07/10/18 00:19: Glucometer 123H 07/10/18 05:07: Glucometer 128H 07/10/18 11:09: Glucometer 160H 9/24/18 19:02: Glucometer 118H 07/11/18 00:02: Glucometer 83 07/11/18 06:24: Glucometer 128H 07/11/18 14:12: Glucometer 145H Assessment/Plan Assessment and Plan 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 Oral Thrush treated with diflucan ESRD on dialysis TIW OS Facility N/V improved Diarrhea improved Dm with hypoglycemia improved with adjustment in Insulin Hypokalemia resolved Vocal cord paralysis NPO on Tube feeds Severe proptein malnutrition on Tube feeds Sacral pressure sore DR Russell following CAD s/p stent Anxiety on med A FIB controlled with med Plan Continue PT/OT/Wound care D/c Carafate as per renal request OS facility Team Conference tomorrow Completing extensive letter of medical necessity for DME for pending discharge to home Co-Morbidities that are continuing to impact the rehab process: (include details ) FISH MACIAS MD Jul 11, 2018 14:52
--- NOTE | 2018-07-11 15:02 | Physical Therapy Daily Note ---
PT Daily Note-Current Subjective Pt sitting in recliner upon arrival. Pt agrees to PT but reports feeling a little tired since coming back from Dialysis. Pain Location: No Pain Reported Mental Status Patient Orientation: Person, Place, Time, Situation Attachments: PEG Tube, IV Transfers Functional [place] Measure 0=Not Assessed/NA 4=Minimal Assistance 1=Total Assistance 5=Supervision or Setup 2=Maximal Assistance 6=Modified [place] 3=Moderate Assistance 7=Complete IndependenceIRFPAI Quality Coding Scale 6 Independent with activity with or without an assistive device 5 Patient requires set up or clean up by helper. Patient completes activity by themselves 4 Supervision or touching assist (CGA). [place] provide cues , steadying assist 3 The helper provides less than half the effort to complete the activity 2 The helper provides more than half the effort to complete the activity 1 Dependent. The helper does all the effort to complete an activity 7 Patient refused to complete or attempt activity 9 The patient did not perform the activity before the current illness or injury 88 Not attempted due to Medical conditions or safety concerns Scootin Supine to/from Sit: 5 Sit to/from Stand: 5 Sit to Lying (QC): 5 Sit to Stand (QC): 5 Weight Bearing Right Lower Extremity: Right Full Weight Bearing Left Lower Extremity: Left Full Weight Bearing Gait Training Does the Patient Walk?: Yes Distance (FIM): 1=up to 49 ft Distance: 35' Walk 10 feet (QC): 5 Gait Level of Assist: 5 Gait Persons Needed: 1 Gait Assistive Device: FWW Wheelchair Training Does the Pt Use a Wheelchair?: No Exercises Supine Ex: Ankle pumps, Quad Set, Glut sets, Heel Slides, Straight leg raise, Hip abd/add Supine Reps: 20 Seated Therapy Exercises: Sit to stand Treatments Pt transfers from recliner to standing using FWW at SBA and ambulates to restroom. Pt needs some assistance with pericare due to loose BM. ASSISTANT TENNIS PROFESSIONAL assists pt with brief change and Nurse reapplies wound dressing. Pt transfers to supine in bed then completes Supine Ex with a couple of short rest breaks. ASSISTANT TENNIS PROFESSIONAL answers pt's questions regarding Weekly Mtg tomorrow and possible upcoming discharge. Pt wants to utilize Home Therapy option upon discharge. Pt has all needs met at end of tx. Assessment Current Status: Good Progress Pt is motivated to get stronger but at times struggles with sleeping and weakness especially after Dialysis. PT Short Term Goals Short Term Goals Time Frame: Jun 29, 2018 Transfers (B,C,W/C) (FIM): 5 Gait (FIM): 5 Distance (FIM): 3=150 ft Gait Distance Comment: 200' Gait Level of Assist: 5 Gait Assistive Device: FWW Wheelchair Distance: 250',150'x2 PT Snf Goals Book Publisher Goals PT Snf Goals Time Frame: Jul 13, 2018 Transfers (B,C,W/C) (FIM): 6 Sit to Lying (QC): 6 Lying-Sitting on Side/Bed(QC): 6 Sit to Stand (QC): 6 Rollin Roll Left to Right (QC): 6 Chair/Mre-yt-Pqqjp Xfer(QC): 6 Car Transfer (QC): 6 Does the Patient Walk: Yes Gait (FIM): 6 Distance: SEE PT GOALS Walk 10 feet (QC): 6 Walk 10ft-Uneven Surface(QC): 6 Walk 50ft with 2 Turns (QC): 6 Walk 150 ft (QC): 6 Gait Level of Assist: 6 Gait Assistive Device: FWW Stairs (FIM): 5 (household exception) # of Steps: 4 1 Step (curb) (QC): 6 4 Steps (QC): 6 12 Steps (QC): 0 Picking up an Object (QC): 4 PT Plan Problem List Problem List: Activity Tolerance, Functional Strength, Balance, Gait Treatment/Plan Treatment Plan: Continue Plan of Care Treatment Plan: Bed Mobility, Concurrent Therapy, Education, Functional Activity Camryn, Functional Strength, Group Therapy, Gait, Safety, Therapeutic Exercise, Transfers Treatment Duration: Jul 13, 2018 Frequency: Modified Program (IRF) (due to dialysis) Estimated Hrs Per Day: 1.5 hours per day Patient and/or Family Agrees t: Yes Safety Risks/Education Patient Education: Gait Training, Transfer Techniques, Correct Positioning, Safety Issues Teaching Recipient: Patient Teaching Methods: Discussion Response to Teaching: Verbalize Understanding Time/GCodes Time In: 1345 Time Out: 1435 Total Billed Treatment Time: 50 Total Billed Treatment 1, EX x2 (30m) & FA (20m) G Codes Necessary: CONTRERAS Farris ASSISTANT TENNIS PROFESSIONAL Jul 11, 2018 15:02
[2018-07-11 18:00] VITALS: BP 115/48
[2018-07-11] MEDS: ENOXAPARIN 30 MG/0.3 ML (LOVENOX) SYR SC SCH (18:24)
[2018-07-11] MEDS: MELATONIN 3 MG TABLET PEG SCH (20:14)
[2018-07-11] MEDS: ZOLPIDEM 5 MG (AMBIEN) TAB PEG SCH (20:14)
[2018-07-11] MEDS: POLYETHYLENE GLYCOL 17 GM (MIRALAX) PACK PEG SCH (21:00)
[2018-07-12 05:58] VITALS: BP 162/80
[2018-07-12] MEDS: inSUlin ASPART (NovoLOG) 1 UNIT/0.01 ML (CHARGE PER UNIT) SC SCH ×4 (06:00→17:49)
[2018-07-12] MEDS: CATHETER FLUSH 10 ML SYR IV SCH ×3 (06:00→21:51)
[2018-07-12] MEDS: CATHETER FLUSH 10 ML SYR IV PRN (06:23)
[2018-07-12] MEDS: predniSONE 10 MG TAB PEG SCH (06:24)
--- NOTE | 2018-07-12 07:57 | PM & R (SOAP) Progress Note ---
Subjective This was a face to face visit with the patient. Date Seen by Provider: Jul 12, 2018 Time Seen by Provider: 07:45 Subjective/Events-last exam Patient was seen in his room this AM Explained to patient that switch to Bolus feeds may best be done on an outpatient basis.Patient SBA to min assist for transfers. Objective Physician Exam Last Set of Vital Signs Vital Signs Date Time Temp Pulse Resp B/P (MAP) Pulse Ox O2 Delivery O2 Flow Rate FiO2 07/12/18 05:58 97.9 81 16 162/80 (107) 100 Room Air Capillary Refill : Less Than 3 Seconds I&O Intake and Output 07/12/18 00:00 Intake Total 1970 ml Output Total 1150 ml Balance 820 ml Intake Oral 0 ml IV Total 50 ml Tube Feeding 1320 ml Other 600 ml Output Urine Total 1050 ml Emesis 100 ml # Bowel Movements 2 General: Alert, Oriented X3, Cooperative, No Acute Distress, Other (Afebrile P =89 RR 16 BP 106/76 02 sats 100%% RA) HEENT: PERRLA, EOMI, Mucous Memb Moist/[place] Neck: Supple, No JVD, Other (Trach functioning) Lungs: Clear to Auscultation Heart: Regular Rate Abdomen: Normal Bowel Sounds, Soft, No Tenderness, Other (Peg tube in place HD catheter in left anterior chest) Extremities: No Edema Skin: Other (Stage 4 pressure sore sacrum) Neuro: Other (Generalized weakness Lower limbs >Upper and RT lower limb >left) Psych/Mental Status: Mental Status NL Results Lab Data Laboratory Tests 07/09/18 11:55: Glucometer 214H 07/09/18 18:09: Glucometer 132H 07/10/18 00:19: Glucometer 123H 07/10/18 05:07: Glucometer 128H 07/10/18 11:09: Glucometer 160H 07/10/18 19:02: Glucometer 118H 07/11/18 00:02: Glucometer 83 07/11/18 06:24: Glucometer 128H 07/11/18 14:12: Glucometer 145H 07/11/18 17:50: Glucometer 127H 07/12/18 00:05: Glucometer 114H 07/12/18 05:46: Glucometer 124H Assessment/Plan Assessment and Plan 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 Oral Thrush treated ESRD on Dialysisi TIW N/V improved Diarrhea improved DM with hypoglycemia improved Hypokalemia resolved Vocal cord paralysis NPO on Tube feeds Severe protein malnutrition on Tube feeds Sacral prsssure sore DR Russell managing CAD s/p Stent Anxiety on med A FIB controlled with med Plan Continue PT/OT Note re need for home DME completed in Progress note 9-24-18 Team Conference later today-see report for full functional update and POC and ELOS F/U re any family training that is still outstanding Co-Morbidities that are continuing to impact the rehab process: (include details ) FISH MACIAS MD Jul 12, 2018 07:57
[2018-07-12] MEDS: METOCLOPRAMIDE 10MG/10ML ORAL SOL(REGLAN) UDC PEG SCH ×2 (09:22→20:12)
[2018-07-12] MEDS: FLUCONAZOLE 200 MG/100 ML 50 ML, EMPTY IV BAG (PVC) 1 EA IV SCH ×2 (09:22)
[2018-07-12] MEDS: PANTOPRAZOLE 40 MG (PROTONIX) VIAL IV SCH ×2 (09:22→20:10)
[2018-07-12] MEDS: CHOLESTYRAMINE 4 GM (QUESTRAN LITE, PREVALITE) PKT PEG SCH ×3 (09:22→21:51)
[2018-07-12] MEDS: LACTOBACILLUS ACIDOPHILUS (PROBIOTIC) CAPSULE PEG SCH ×2 (09:22→20:11)
[2018-07-12] MEDS: buPROPion 100 MG (WELLBUTRIN) TAB PEG SCH ×2 (09:22→20:11)
[2018-07-12] MEDS: ALPRAZolam 0.5 MG (XANAX) TAB PEG PRN (09:22)
[2018-07-12] MEDS: FOLIC ACID 1 MG TAB PEG SCH (09:22)
[2018-07-12] MEDS: CARVEDILOL 12.5 MG (COREG) TABLET PEG SCH ×2 (09:22→20:11)
[2018-07-12] MEDS: inSUlin DETERMIR 1 UNIT/0.01 ML (LEVEMIR) CHARGE PER UNIT SQ SCH (09:23)
--- NOTE | 2018-07-12 10:04 | Occupational Ther Daily Note ---
OT Current Status-Daily Note Subjective Pt alert, lying in bed. Pt stated that "he needed to go to the rest room." No c/ o pain. Pt agrees to therapy. Mental Status/Objective Patient Orientation: Person, Place, Time, Situation Functional [place] Measure 0=Not Assessed/NA 4=Minimal Assistance 1=Total Assistance 5=Supervision or Setup 2=Maximal Assistance 6=Modified [place] 3=Moderate Assistance 7=Complete [place] Attachments: IV, PEG Tube ADL-Treatment Functional [place] Measure 0=Not Assessed/NA 4=Minimal Assistance 1=Total Assistance 5=Supervision or Setup 2=Maximal Assistance 6=Modified [place] 3=Moderate Assistance 7=Complete IndependenceIRFPAI Quality Coding Scale 6 Independent with activity with or without an assistive device 5 Patient requires set up or clean up by helper. Patient completes activity by themselves 4 Supervision or touching assist (CGA). [place] provide cues , steadying assist 3 The helper provides less than half the effort to complete the activity 2 The helper provides more than half the effort to complete the activity 1 Dependent. The helper does all the effort to complete an activity 7 Patient refused to complete or attempt activity 9 The patient did not perform the activity before the current illness or injury 88 Not attempted due to Medical conditions or safety concerns Grooming (FIM): 6 (Mod I, pt completes in sitting position in front of sink. ) Oral Hygiene (QC): 6 Bathing (FIM): 6 (Pt completes using shower bench, hand held shower, grabbars and FWW for stability. Concerns for safety. ) Bathing Location: L Arm, R Arm, L Upper Leg, R Upper Leg, L Lower Leg ( including foot), R Lower Leg (including foot), Chest, Abdomen, Buttocks, Perineal Area Shower/Bathe Self (QC): 6 Upper Body (FIM): 5 (Set up. Pt completes in sitting position. ) Upper Body Dressing (QC): 5 Lower Body Dressing (FIM): 4 (Set up. Pt completes in sitting position using AE. Using FWW for stability to hike pants over hips. Pt able to don/doff socks using AE and able to don L shoe using AE. Assist on R shoe due to AFO. ) Lower Body Dressing (QC): 4 On/Off Footwear (QC): 4 Toileting (FIM): 6 (Pt able to cleanse self in sitting using grabbars for stability. Pt uses FWW in standing to hike pants over hips. Concerns for safety. ) Toileting Hygiene (QC): 6 Transfers (B, C, W/C) (FIM): 6 (HOB raised, pt able to go from supine to EOB by self. using FWW for stability on sit to stand. Concerns for safety. ) Toilet/Commode Transfer (FIM): 6 (Pt uses grabbars and FWW for stability. Concerns for safety. ) Toilet Transfer (QC): 6 Shower Transfer(FIM): 6 (Pt completes using grabbars, shower bench, and FWW for stability. Concerns for safety. ) Other Treatment Pt ambulated throughout room using FWW simulating floor clean up in a home environment. Pt and CONTINUOUS IMPROVEMENT ENGINEER/s discussed different home modifications for safety. Pt takes increased time to complete ADLs. Pt had no complaints of nausea throughout session. After therapy, pt lying in bed with call light/phone within reach. All needs met in room. Education OT Patient Education: Energy conservation, Safety issues, Use of adapted equipment Teaching Recipient: Patient Teaching Methods: Discussion Response to Teaching: Verbalize Understanding, Return Demonstration OT Short Term Goals Short Term Goals Time Frame: Jul 06, 2018 Grooming(FIM): 5 Bathing(FIM): 4 Upper Body Dressing(FIM): 4 Lower Body Dressing(FIM): 4 Toileting(FIM): 4 Transfers (B,C,W/C) (FIM): 5 Toilet/Commode Transfer(FIM): 5 Shower Transfer(FIM): 4 Additional Short Term Goals: 1-Demonstrate ADL Tasks, 2-Verbalize Understanding , 3-ImproveStrength/[place] 1=Demonstrate adherence to instructed precautions during ADL tasks. 2=Patient will verbalize/demonstrate understanding of assistive devices/ modifications for ADL. 3=Patient will improve strength/tolerance for activity to enable patient to perform ADL's. OT Senior Living Goals Senior Living Goals Time Frame: Jul 20, 2018 Groomin Oral Hygiene (QC): 4 Bathing(FIM): 5 Shower/Bathe Self (QC): 4 Upper Body Dressing(FIM): 5 Upper Body Dressing (QC): 4 Lower Body Dressing(FIM): 5 Lower Body Dressing (QC): 4 On/Off Footwear (QC): 4 Toileting(FIM): 5 Toileting Hygiene (QC): 4 Transfers (B,C,W/C) (FIM): 6 Toilet/Commode Transfer(FIM): 6 Toilet/Commode Transfer (QC): 6 Shower Transfer(FIM): 5 Additional Goals: 1-Demonstrate ADL Tasks, 2-Verbalize Understanding, 3- ImproveStrength/Cam[place] 1=Demonstrate adherence to instructed precautions during ADL tasks. 2=Patient will verbalize/demonstrate understanding of assistive devices/ modifications for ADL. 3=Patient will improve strength/tolerance for activity to enable patient to perform ADL's. OT Education/Plan Discharge Recommendations Plan/Recommendations: Continue POC Treatment Plan/Plan of Care Patient would benefit from OT for education, treatment and training to promote independence in ADL's, mobility, safety and/or upper extremity function for ADL' s. Plan of Care: ADL Retraining, Functional Mobility, Group Exercise/Act as Ind, UE Funct Exercise/Act Treatment Duration: Jul 20, 2018 Frequency: At least 5 of 7 days/Wk (IRF) Estimated Hrs Per Day: 1.5 hours per day Agreement: Yes Rehab Potential: Fair Time/GCodes Start Time: 08:30 Stop Time: 10:00 Total Time Billed (hr/min): 90 Billed Treatment Time 1 visit- ADL 4 (60 min) FA 2 (30 min) VIPUL KIRK Jul 12, 2018 10:04
--- NOTE | 2018-07-12 11:47 | Occupational Ther Daily Note ---
OT Current Status-Daily Note Subjective Pt in bathroom. No c/o pain. Pt agrees to therapy. Mental Status/Objective Patient Orientation: Person, Place, Time, Situation Functional [place] Measure 0=Not Assessed/NA 4=Minimal Assistance 1=Total Assistance 5=Supervision or Setup 2=Maximal Assistance 6=Modified [place] 3=Moderate Assistance 7=Complete [place] ADL-Treatment Functional [place] Measure 0=Not Assessed/NA 4=Minimal Assistance 1=Total Assistance 5=Supervision or Setup 2=Maximal Assistance 6=Modified [place] 3=Moderate Assistance 7=Complete IndependenceIRFPAI Quality Coding Scale 6 Independent with activity with or without an assistive device 5 Patient requires set up or clean up by helper. Patient completes activity by themselves 4 Supervision or touching assist (CGA). [place] provide cues , steadying assist 3 The helper provides less than half the effort to complete the activity 2 The helper provides more than half the effort to complete the activity 1 Dependent. The helper does all the effort to complete an activity 7 Patient refused to complete or attempt activity 9 The patient did not perform the activity before the current illness or injury 88 Not attempted due to Medical conditions or safety concerns Toileting (FIM): 6 (Pt completes using grabbars and FWW for stability while cleansing self in sitting position. Concern for safety.) Toileting Hygiene (QC): 6 Transfers (B, C, W/C) (FIM): 6 (Pt completes using FWW for stability. Concern for safety. ) Toilet/Commode Transfer (FIM): 6 (Pt completes using FWW and grabbars for stability. ) Toilet Transfer (QC): 6 Other Treatment Pt ambulated to therapy gym using FWW for stability. Pt completes 4 UE strengthening exercises/15x/3 sets using dowel mercedez with 2# wt increasing UE strength and activity tolerance needed for transfers and daily functional activities. Pt ambulated to room using FWW for stability. After therapy, pt lying in bed with call light/phone within reach. All needs met in room. OT Short Term Goals Short Term Goals Time Frame: Jul 06, 2018 Grooming(FIM): 5 Bathing(FIM): 4 Upper Body Dressing(FIM): 4 Lower Body Dressing(FIM): 4 Toileting(FIM): 4 Transfers (B,C,W/C) (FIM): 5 Toilet/Commode Transfer(FIM): 5 Shower Transfer(FIM): 4 Additional Short Term Goals: 1-Demonstrate ADL Tasks, 2-Verbalize Understanding , 3-ImproveStrength/[place] 1=Demonstrate adherence to instructed precautions during ADL tasks. 2=Patient will verbalize/demonstrate understanding of assistive devices/ modifications for ADL. 3=Patient will improve strength/tolerance for activity to enable patient to perform ADL's. OT Carpenter'S Assistant Goals Detention Goals Time Frame: Jul 20, 2018 Groomin Oral Hygiene (QC): 4 Bathing(FIM): 5 Shower/Bathe Self (QC): 4 Upper Body Dressing(FIM): 5 Upper Body Dressing (QC): 4 Lower Body Dressing(FIM): 5 Lower Body Dressing (QC): 4 On/Off Footwear (QC): 4 Toileting(FIM): 5 Toileting Hygiene (QC): 4 Transfers (B,C,W/C) (FIM): 6 Toilet/Commode Transfer(FIM): 6 Toilet/Commode Transfer (QC): 6 Shower Transfer(FIM): 5 Additional Goals: 1-Demonstrate ADL Tasks, 2-Verbalize Understanding, 3- ImproveStrength/[place] 1=Demonstrate adherence to instructed precautions during ADL tasks. 2=Patient will verbalize/demonstrate understanding of assistive devices/ modifications for ADL. 3=Patient will improve strength/tolerance for activity to enable patient to perform ADL's. OT Education/Plan Discharge Recommendations Plan/Recommendations: Continue POC Treatment Plan/Plan of Care Patient would benefit from OT for education, treatment and training to promote independence in ADL's, mobility, safety and/or upper extremity function for ADL' s. Plan of Care: ADL Retraining, Functional Mobility, Group Exercise/Act as Ind, UE Funct Exercise/Act Treatment Duration: Jul 20, 2018 Frequency: At least 5 of 7 days/Wk (IRF) Estimated Hrs Per Day: 1.5 hours per day Agreement: Yes Rehab Potential: Fair Time/GCodes Start Time: 11:11 Stop Time: 11:41 Total Time Billed (hr/min): 30 Billed Treatment Time 1 visit- ADL 1 (15 min), EX 1 (15 min) VIPUL KIRK Jul 12, 2018 11:47
--- NOTE | 2018-07-12 12:19 | Physical Therapy Daily Note ---
PT Daily Note-Current Subjective Pt laying Supine in bed upon arrival. Pt agrees to PT. Pt reports sleeping better last night & feeling better today. Pain Location: No Pain Reported Mental Status Patient Orientation: Person, Place, Time, Situation Attachments: PEG Tube, IV Transfers Functional [place] Measure 0=Not Assessed/NA 4=Minimal Assistance 1=Total Assistance 5=Supervision or Setup 2=Maximal Assistance 6=Modified [place] 3=Moderate Assistance 7=Complete IndependenceIRFPAI Quality Coding Scale 6 Independent with activity with or without an assistive device 5 Patient requires set up or clean up by helper. Patient completes activity by themselves 4 Supervision or touching assist (CGA). [place] provide cues , steadying assist 3 The helper provides less than half the effort to complete the activity 2 The helper provides more than half the effort to complete the activity 1 Dependent. The helper does all the effort to complete an activity 7 Patient refused to complete or attempt activity 9 The patient did not perform the activity before the current illness or injury 88 Not attempted due to Medical conditions or safety concerns Scootin Rollin Supine to/from Sit: 6 Sit to/from Stand: 6 Sit to Lying (QC): 6 Sit to Stand (QC): 6 Weight Bearing Right Lower Extremity: Right Full Weight Bearing Left Lower Extremity: Left Full Weight Bearing Gait Training Does the Patient Walk?: Yes Distance (FIM): 3=150 ft Distance: 200' Walk 10 feet (QC): 5 Walk 50 ft with 2 Turns(QC): 5 Walk 150 ft (QC): 5 Gait Level of Assist: 5 Gait Persons Needed: 1 Gait Assistive Device: FWW Pt needs assistance managing IV pole but walks SBA. Pt does not strong enough to progress to Quad cane or other less restrictive device. Wheelchair Training Does the Pt Use a Wheelchair?: No Stair Training Stair Training: Handrails/: 2 handrails #of Steps: 8 1 Step (curb) (QC): 5 4 Steps (QC): 5 Stairs: Pattern: Step to Level of Assist: 5 Pt takes rest break after each set of 4 steps due to fatigue. Exercises Seated Therapy Exercises: Ankle pumps, Long arc quads, Hip flexion, Kicking activity Seated Reps: 20 NuStep Minutes: 15 NuStep Workload: 5 Treatments Pt transfers from bed to standing using FWW at Mod I then ambulates to restroom. Pt ambulates in hallway using FWW at SBA. Pt uses NuStep for 15m at WL 5, followed by Seated Ex in chair. After short rest, pt completes 2 sets of 4 steps with seated rest break between them. Pt returns to room to rest Supine at end of tx with all needs met. Assessment Current Status: Good Progress Pt continues to make progress with transfers, ambulation and stairs although still demonstrates some fatigue & weakness. PT Short Term Goals Short Term Goals Time Frame: Jun 29, 2018 Transfers (B,C,W/C) (FIM): 5 Gait (FIM): 5 Distance (FIM): 3=150 ft Gait Distance Comment: 200' Gait Level of Assist: 5 Gait Assistive Device: FWW Wheelchair Distance: 250',150'x2 PT Group Home Goals Group Home Goals PT Group Home Goals Time Frame: Jul 13, 2018 Transfers (B,C,W/C) (FIM): 6 Sit to Lying (QC): 6 Lying-Sitting on Side/Bed(QC): 6 Sit to Stand (QC): 6 Rollin Roll Left to Right (QC): 6 Chair/Ykz-ye-Cibrs Xfer(QC): 6 Car Transfer (QC): 6 Does the Patient Walk: Yes Gait (FIM): 6 Distance: SEE PT GOALS Walk 10 feet (QC): 6 Walk 10ft-Uneven Surface(QC): 6 Walk 50ft with 2 Turns (QC): 6 Walk 150 ft (QC): 6 Gait Level of Assist: 6 Gait Assistive Device: FWW Stairs (FIM): 5 (household exception) # of Steps: 4 1 Step (curb) (QC): 6 4 Steps (QC): 6 12 Steps (QC): 0 Picking up an Object (QC): 4 PT Plan Problem List Problem List: Activity Tolerance, Functional Strength, Gait Treatment/Plan Treatment Plan: Continue Plan of Care Treatment Plan: Bed Mobility, Concurrent Therapy, Education, Functional Activity Camryn, Functional Strength, Group Therapy, Gait, Safety, Therapeutic Exercise, Transfers Treatment Duration: Jul 13, 2018 Frequency: Modified Program (IRF) (due to dialysis) Estimated Hrs Per Day: 1.5 hours per day Patient and/or Family Agrees t: Yes Safety Risks/Education Patient Education: Gait Training, Transfer Techniques, Correct Positioning, Safety Issues Teaching Recipient: Patient Teaching Methods: Discussion Response to Teaching: Verbalize Understanding Time/GCodes Time In: 1000 Time Out: 1100 Total Billed Treatment Time: 60 Total Billed Treatment 1, GT (15m), FA (15m) & EX x2 (30m) G Codes Necessary: CONTRERAS Farris CUSTOMER CARE COORDINATOR Jul 12, 2018 12:19
--- NOTE | 2018-07-12 14:23 | Physical Therapy Daily Note ---
PT Daily Note-Current Subjective Pt laying Supine in bed upon arrival. Pt agrees to PT. Pain Location: No Pain Reported Mental Status Patient Orientation: Person, Place, Time, Situation Attachments: PEG Tube, IV Transfers Functional [place] Measure 0=Not Assessed/NA 4=Minimal Assistance 1=Total Assistance 5=Supervision or Setup 2=Maximal Assistance 6=Modified [place] 3=Moderate Assistance 7=Complete IndependenceIRFPAI Quality Coding Scale 6 Independent with activity with or without an assistive device 5 Patient requires set up or clean up by helper. Patient completes activity by themselves 4 Supervision or touching assist (CGA). [place] provide cues , steadying assist 3 The helper provides less than half the effort to complete the activity 2 The helper provides more than half the effort to complete the activity 1 Dependent. The helper does all the effort to complete an activity 7 Patient refused to complete or attempt activity 9 The patient did not perform the activity before the current illness or injury 88 Not attempted due to Medical conditions or safety concerns Scootin Rollin Supine to/from Sit: 6 Sit to/from Stand: 6 Sit to Stand (QC): 6 Weight Bearing Right Lower Extremity: Right Full Weight Bearing Left Lower Extremity: Left Full Weight Bearing Gait Training Does the Patient Walk?: Yes Distance (FIM): 3=150 ft Distance: 350' Walk 10 feet (QC): 5 Walk 50 ft with 2 Turns(QC): 5 Walk 150 ft (QC): 5 Gait Level of Assist: 5 Gait Persons Needed: 1 Gait Assistive Device: FWW Pt fatigues after distance walk. Pt needs short seated rest break to recover. Wheelchair Training Does the Pt Use a Wheelchair?: No Exercises Standing: Hamstring curls, 3 way Ex=Flex, Abd, Ext, Marching Standing Reps: 20 Treatments Pt transfers from bed at Mod I then ambulates in hallway using FWW at A. Pt fatigues and rests then completes Standing Ex at //bars in Therapy Gym. Pt takes rest breaks as needed. Pt returns to room to rest Supine in bed at end of tx with all needs met. Assessment Current Status: Good Progress Pt continues to make improvements with strength and activity tolerance but still occasionally fatigues and needs short rest break to recover. PT Short Term Goals Short Term Goals Time Frame: Jun 29, 2018 Transfers (B,C,W/C) (FIM): 5 Gait (FIM): 5 Distance (FIM): 3=150 ft Gait Distance Comment: 200' Gait Level of Assist: 5 Gait Assistive Device: FWW Wheelchair Distance: 250',150'x2 PT Chcf Goals Chcf Goals PT Case Technician Goals Time Frame: Jul 13, 2018 Transfers (B,C,W/C) (FIM): 6 Sit to Lying (QC): 6 Lying-Sitting on Side/Bed(QC): 6 Sit to Stand (QC): 6 Rollin Roll Left to Right (QC): 6 Chair/Wwo-hd-Wrwnl Xfer(QC): 6 Car Transfer (QC): 6 Does the Patient Walk: Yes Gait (FIM): 6 Distance: SEE PT GOALS Walk 10 feet (QC): 6 Walk 10ft-Uneven Surface(QC): 6 Walk 50ft with 2 Turns (QC): 6 Walk 150 ft (QC): 6 Gait Level of Assist: 6 Gait Assistive Device: FWW Stairs (FIM): 5 (household exception) # of Steps: 4 1 Step (curb) (QC): 6 4 Steps (QC): 6 12 Steps (QC): 0 Picking up an Object (QC): 4 PT Plan Problem List Problem List: Activity Tolerance, Functional Strength, Gait Treatment/Plan Treatment Plan: Continue Plan of Care Treatment Plan: Bed Mobility, Concurrent Therapy, Education, Functional Activity Camryn, Functional Strength, Group Therapy, Gait, Safety, Therapeutic Exercise, Transfers Treatment Duration: Jul 13, 2018 Frequency: Modified Program (IRF) (due to dialysis) Estimated Hrs Per Day: 1.5 hours per day Patient and/or Family Agrees t: Yes Safety Risks/Education Patient Education: Gait Training, Transfer Techniques, Correct Positioning, Safety Issues Teaching Recipient: Patient Teaching Methods: Discussion Response to Teaching: Verbalize Understanding Time/GCodes Time In: 1300 Time Out: 1330 Total Billed Treatment Time: 30 Total Billed Treatment 1, GT (15m) & EX (15m) G Codes Necessary: CONTRERAS Farris NURSING PROGRAM CHAIR Jul 12, 2018 14:23
[2018-07-12] MEDS: ENOXAPARIN 30 MG/0.3 ML (LOVENOX) SYR SC SCH (15:30)
[2018-07-12 17:33] VITALS: BP 150/70
[2018-07-12] MEDS: ZOLPIDEM 5 MG (AMBIEN) TAB PEG SCH (20:11)
[2018-07-12] MEDS: MELATONIN 3 MG TABLET PEG SCH (20:11)
[2018-07-12] MEDS: POLYETHYLENE GLYCOL 17 GM (MIRALAX) PACK PEG SCH (20:31)
[2018-07-13] MEDS: inSUlin ASPART (NovoLOG) 1 UNIT/0.01 ML (CHARGE PER UNIT) SC SCH ×4 (06:00→17:45)
[2018-07-13 06:06] VITALS: BP 158/83
[2018-07-13] MEDS: predniSONE 10 MG TAB PEG SCH (06:29)
[2018-07-13] MEDS: CATHETER FLUSH 10 ML SYR IV SCH ×3 (06:29→21:19)
[2018-07-13] MEDS: CATHETER FLUSH 10 ML SYR IV PRN (07:10)
[2018-07-13] MEDS: ONDANSETRON 4 MG/2 ML (SDV) Z0FRAN IVP PRN (07:10)
--- NOTE | 2018-07-13 08:00 | Occupational Ther Daily Note ---
OT Current Status-Daily Note Subjective Pt alert, lying in bed. Nrsg present in room. No c/o pain. Pt agrees to therapy. Mental Status/Objective Patient Orientation: Person, Place, Time, Situation Functional [place] Measure 0=Not Assessed/NA 4=Minimal Assistance 1=Total Assistance 5=Supervision or Setup 2=Maximal Assistance 6=Modified [place] 3=Moderate Assistance 7=Complete [place] Attachments: IV, PEG Tube, Other-See Comments (PICC) ADL-Treatment Functional [place] Measure 0=Not Assessed/NA 4=Minimal Assistance 1=Total Assistance 5=Supervision or Setup 2=Maximal Assistance 6=Modified [place] 3=Moderate Assistance 7=Complete IndependenceIRFPAI Quality Coding Scale 6 Independent with activity with or without an assistive device 5 Patient requires set up or clean up by helper. Patient completes activity by themselves 4 Supervision or touching assist (CGA). [place] provide cues , steadying assist 3 The helper provides less than half the effort to complete the activity 2 The helper provides more than half the effort to complete the activity 1 Dependent. The helper does all the effort to complete an activity 7 Patient refused to complete or attempt activity 9 The patient did not perform the activity before the current illness or injury 88 Not attempted due to Medical conditions or safety concerns Grooming (FIM): 6 (Mod I, pt completes in sitting in front of sink.) Oral Hygiene (QC): 6 Upper Body (FIM): 5 (Set up, Pt able to don/doff UE dressing in sitting position. ) Upper Body Dressing (QC): 5 Lower Body Dressing (FIM): 5 (Set up, pt completes in sitting position using AE to reach LE. Pt able to don/doff socks using AE. Pt able to don L Shoe, Assist on R shoe due to AFO. ) Lower Body Dressing (QC): 5 On/Off Footwear (QC): 4 Toileting (FIM): 6 (Pt cleanses self in sitting using grabbars for stability. Pt uses FWW and grabbars for stability in stand to hike pants over hips. Concerns for safety. ) Toileting Hygiene (QC): 6 Transfers (B, C, W/C) (FIM): 6 (HOB raised, pt able to go from supine to EOB. Pt uses FWW for stability in sit to stand. Concerns for safety. ) Toilet/Commode Transfer (FIM): 6 Toilet Transfer (QC): 6 Pt took increased time on ADLs needing rest breaks throughout due to complaints of nausea/vomiting. Nursing notified, nausea medication given. Other Treatment Pt ambulated to therapy gym using FWW for stability. Pt completed nuts and bolts tasks increasing finger dexterity and fine motor needed for daily functional tasks. Pt completed resistive pegs with 1# wt attached alternating R /L increasing pincer wiring technician and fine motor needed for daily functional tasks. Pt ambulated back to room using FWW for stability. After therapy, pt lying in bed with call light/phone within reach. All needs met in room. OT Short Term Goals Short Term Goals Time Frame: Jul 06, 2018 Grooming(FIM): 5 Bathing(FIM): 4 Upper Body Dressing(FIM): 4 Lower Body Dressing(FIM): 4 Toileting(FIM): 4 Transfers (B,C,W/C) (FIM): 5 Toilet/Commode Transfer(FIM): 5 Shower Transfer(FIM): 4 Additional Short Term Goals: 1-Demonstrate ADL Tasks, 2-Verbalize Understanding , 3-ImproveStrength/Cam[place] 1=Demonstrate adherence to instructed precautions during ADL tasks. 2=Patient will verbalize/demonstrate understanding of assistive devices/ modifications for ADL. 3=Patient will improve strength/tolerance for activity to enable patient to perform ADL's. OT Pusher Runner Goals Pusher Runner Goals Time Frame: Jul 20, 2018 Groomin Oral Hygiene (QC): 4 Bathing(FIM): 5 Shower/Bathe Self (QC): 4 Upper Body Dressing(FIM): 5 Upper Body Dressing (QC): 4 Lower Body Dressing(FIM): 5 Lower Body Dressing (QC): 4 On/Off Footwear (QC): 4 Toileting(FIM): 5 Toileting Hygiene (QC): 4 Transfers (B,C,W/C) (FIM): 6 Toilet/Commode Transfer(FIM): 6 Toilet/Commode Transfer (QC): 6 Shower Transfer(FIM): 5 Additional Goals: 1-Demonstrate ADL Tasks, 2-Verbalize Understanding, 3- ImproveStrength/Camryn 1=Demonstrate adherence to instructed precautions during ADL tasks. 2=Patient will verbalize/demonstrate understanding of assistive devices/ modifications for ADL. 3=Patient will improve strength/tolerance for activity to enable patient to perform ADL's. OT Education/Plan Discharge Recommendations Plan/Recommendations: Continue POC Treatment Plan/Plan of Care Patient would benefit from OT for education, treatment and training to promote independence in ADL's, mobility, safety and/or upper extremity function for ADL' s. Plan of Care: ADL Retraining, Functional Mobility, Group Exercise/Act as Ind, UE Funct Exercise/Act Treatment Duration: Jul 20, 2018 Frequency: At least 5 of 7 days/Wk (IRF) Estimated Hrs Per Day: 1.5 hours per day Agreement: Yes Rehab Potential: Fair Time/GCodes Start Time: 06:37 Stop Time: 08:00 Total Time Billed (hr/min): 83 Billed Treatment Time 1 visit- ADL 4 (53 min) Ex 2 (30 min) VIPUL KIRK Jul 13, 2018 08:00
[2018-07-13] MEDS: PANTOPRAZOLE 40 MG (PROTONIX) VIAL IV SCH ×2 (08:02→21:18)
[2018-07-13] MEDS: FLUCONAZOLE 200 MG/100 ML 50 ML, EMPTY IV BAG (PVC) 1 EA IV SCH ×2 (09:01)
[2018-07-13] MEDS: FOLIC ACID 1 MG TAB PEG SCH (09:02)
[2018-07-13] MEDS: LACTOBACILLUS ACIDOPHILUS (PROBIOTIC) CAPSULE PEG SCH ×2 (09:02→21:19)
[2018-07-13] MEDS: CARVEDILOL 12.5 MG (COREG) TABLET PEG SCH ×2 (09:02→21:19)
[2018-07-13] MEDS: ALPRAZolam 0.5 MG (XANAX) TAB PEG PRN ×2 (09:02→18:32)
[2018-07-13] MEDS: CHOLESTYRAMINE 4 GM (QUESTRAN LITE, PREVALITE) PKT PEG SCH ×3 (09:02→21:18)
[2018-07-13] MEDS: buPROPion 100 MG (WELLBUTRIN) TAB PEG SCH ×2 (09:02→21:19)
[2018-07-13] MEDS: METOCLOPRAMIDE 10MG/10ML ORAL SOL(REGLAN) UDC PEG SCH ×2 (09:03→21:18)
[2018-07-13] MEDS: inSUlin DETERMIR 1 UNIT/0.01 ML (LEVEMIR) CHARGE PER UNIT SQ SCH (09:03)
--- NOTE | 2018-07-13 09:26 | Physical Therapy Daily Note ---
PT Daily Note-Current Subjective Pt laying in bed upon arrival. Pt agrees to PT but reports very nauseated this morning. Nursing holding morning meds until after Dialysis. Mental Status Patient Orientation: Person, Place, Time, Situation Attachments: Other-See Comments (AFO on RLE) Transfers Functional [place] Measure 0=Not Assessed/NA 4=Minimal Assistance 1=Total Assistance 5=Supervision or Setup 2=Maximal Assistance 6=Modified [place] 3=Moderate Assistance 7=Complete IndependenceIRFPAI Quality Coding Scale 6 Independent with activity with or without an assistive device 5 Patient requires set up or clean up by helper. Patient completes activity by themselves 4 Supervision or touching assist (CGA). [place] provide cues , steadying assist 3 The helper provides less than half the effort to complete the activity 2 The helper provides more than half the effort to complete the activity 1 Dependent. The helper does all the effort to complete an activity 7 Patient refused to complete or attempt activity 9 The patient did not perform the activity before the current illness or injury 88 Not attempted due to Medical conditions or safety concerns Scootin Rollin Supine to/from Sit: 6 Sit to/from Stand: 6 Sit to Lying (QC): 6 Sit to Stand (QC): 6 Weight Bearing Right Lower Extremity: Right Full Weight Bearing Left Lower Extremity: Left Full Weight Bearing Gait Training Gait Assistive Device: FWW Exercises Supine Ex: Bridging, Ankle pumps, Quad Set, Glut sets, Heel Slides, Scooting, Straight leg raise, Hip abd/add Supine Reps: 20 Treatments Pt feeling nauseated so we complete tx as pt can tolerate. Pt completes Supine Ex in bed with several rest breaks. Pt works on bridging and scooting in bed. Pt transfers to EOB and sits for monitoring for a few minutes then transfers to standing using FWW next to bed but after a couple of minutes felt very nauseated and asked to lay back down. GUEST ADVISOR & pt completes pt education over HEP GUEST ADVISOR issued and home & day to day life and what pt expects or needs to be able to complete upon discharge. At this time, Kier Operator to trying to work with [employer] for additional week on ARU. Pt resting in bed at end of tx with all needs met. Nurse present to administer Zantac. Assessment Current Status: Fair Progress Pt's nausea limits tx today but pt tries to complete what he can so he is not losing momentum he has gained. PT Short Term Goals Short Term Goals Time Frame: Jun 29, 2018 Transfers (B,C,W/C) (FIM): 5 Gait (FIM): 5 Distance (FIM): 3=150 ft Gait Distance Comment: 200' Gait Level of Assist: 5 Gait Assistive Device: FWW Wheelchair Distance: 250',150'x2 PT Care Home Goals [place]cer Goals PT Care Home Goals Time Frame: Jul 13, 2018 Transfers (B,C,W/C) (FIM): 6 Sit to Lying (QC): 6 Lying-Sitting on Side/Bed(QC): 6 Sit to Stand (QC): 6 Rollin Roll Left to Right (QC): 6 Chair/Yfx-jl-Ebmpy Xfer(QC): 6 Car Transfer (QC): 6 Does the Patient Walk: Yes Gait (FIM): 6 Distance: SEE PT GOALS Walk 10 feet (QC): 6 Walk 10ft-Uneven Surface(QC): 6 Walk 50ft with 2 Turns (QC): 6 Walk 150 ft (QC): 6 Gait Level of Assist: 6 Gait Assistive Device: FWW Stairs (FIM): 5 (household exception) # of Steps: 4 1 Step (curb) (QC): 6 4 Steps (QC): 6 12 Steps (QC): 0 Picking up an Object (QC): 4 PT Plan Problem List Problem List: Activity Tolerance, Functional Strength, Balance, Gait Treatment/Plan Treatment Plan: Continue Plan of Care Treatment Plan: Bed Mobility, Concurrent Therapy, Education, Functional Activity Camryn, Functional Strength, Group Therapy, Gait, Safety, Therapeutic Exercise, Transfers Treatment Duration: Jul 13, 2018 Frequency: Modified Program (IRF) (due to dialysis) Estimated Hrs Per Day: 1.5 hours per day Patient and/or Family Agrees t: Yes Safety Risks/Education Patient Education: Transfer Techniques, Issued Written HEP, Correct Positioning , Safety Issues Teaching Recipient: Patient Teaching Methods: Discussion Response to Teaching: Verbalize Understanding Time/GCodes Time In: 800 Time Out: 915 Total Billed Treatment Time: 75 Total Billed Treatment 1, Ex x2 (30m) & FA x3 (45m) G Codes Necessary: CONTRERAS Farris GUEST ADVISOR Jul 13, 2018 09:26
--- NOTE | 2018-07-13 10:11 | Occupational Ther Daily Note ---
OT Current Status-Daily Note Subjective Pt lying in bed. Agrees to therapy. Continues to not feel well and is nauseous with movement. Pt to go to dialysis this am. Mental Status/Objective Patient Orientation: Person, Place, Time, Situation Functional [place] Measure 0=Not Assessed/NA 4=Minimal Assistance 1=Total Assistance 5=Supervision or Setup 2=Maximal Assistance 6=Modified [place] 3=Moderate Assistance 7=Complete [place] Attachments: PEG Tube, Other-See Comments (PICC) ADL-Treatment Functional [place] Measure 0=Not Assessed/NA 4=Minimal Assistance 1=Total Assistance 5=Supervision or Setup 2=Maximal Assistance 6=Modified [place] 3=Moderate Assistance 7=Complete IndependenceIRFPAI Quality Coding Scale 6 Independent with activity with or without an assistive device 5 Patient requires set up or clean up by helper. Patient completes activity by themselves 4 Supervision or touching assist (CGA). [place] provide cues , steadying assist 3 The helper provides less than half the effort to complete the activity 2 The helper provides more than half the effort to complete the activity 1 Dependent. The helper does all the effort to complete an activity 7 Patient refused to complete or attempt activity 9 The patient did not perform the activity before the current illness or injury 88 Not attempted due to Medical conditions or safety concerns Other Treatment Pt working on transfers from surface to surface with and without FWW. Supine to sitting with HOB slightly raised using bedrail, mod I. Transferred using FWW from EOB to w/c mod I. Pt stated he felt nauseous after transfer to w/c. Assist to vehicle for transportation to dialysis. Pt able to transfer from w/c to vehicle with SBA using car door to balance self. After therapy, pt going to dialysis with family member. All needs met. OT Short Term Goals Short Term Goals Time Frame: Jul 06, 2018 Grooming(FIM): 5 Bathing(FIM): 4 Upper Body Dressing(FIM): 4 Lower Body Dressing(FIM): 4 Toileting(FIM): 4 Transfers (B,C,W/C) (FIM): 5 Toilet/Commode Transfer(FIM): 5 Shower Transfer(FIM): 4 Additional Short Term Goals: 1-Demonstrate ADL Tasks, 2-Verbalize Understanding , 3-ImproveStrength/[place] 1=Demonstrate adherence to instructed precautions during ADL tasks. 2=Patient will verbalize/demonstrate understanding of assistive devices/ modifications for ADL. 3=Patient will improve strength/tolerance for activity to enable patient to perform ADL's. OT Assisted Goals Upper Cutter Goals Time Frame: Jul 20, 2018 Groomin Oral Hygiene (QC): 4 Bathing(FIM): 5 Shower/Bathe Self (QC): 4 Upper Body Dressing(FIM): 5 Upper Body Dressing (QC): 4 Lower Body Dressing(FIM): 5 Lower Body Dressing (QC): 4 On/Off Footwear (QC): 4 Toileting(FIM): 5 Toileting Hygiene (QC): 4 Transfers (B,C,W/C) (FIM): 6 Toilet/Commode Transfer(FIM): 6 Toilet/Commode Transfer (QC): 6 Shower Transfer(FIM): 5 Additional Goals: 1-Demonstrate ADL Tasks, 2-Verbalize Understanding, 3- ImproveStrength/[place] 1=Demonstrate adherence to instructed precautions during ADL tasks. 2=Patient will verbalize/demonstrate understanding of assistive devices/ modifications for ADL. 3=Patient will improve strength/tolerance for activity to enable patient to perform ADL's. OT Education/Plan Discharge Recommendations Plan/Recommendations: Continue POC Treatment Plan/Plan of Care Patient would benefit from OT for education, treatment and training to promote independence in ADL's, mobility, safety and/or upper extremity function for ADL' s. Plan of Care: ADL Retraining, Functional Mobility, Group Exercise/Act as Ind, UE Funct Exercise/Act Treatment Duration: Jul 20, 2018 Frequency: At least 5 of 7 days/Wk (IRF) Estimated Hrs Per Day: 1.5 hours per day Agreement: Yes Rehab Potential: Fair Time/GCodes Start Time: 09:30 Stop Time: 09:40 Total Time Billed (hr/min): 10 Billed Treatment Time 1 visit-FA 1 (10 min) VIPUL KIRK Jul 13, 2018 10:11
--- NOTE | 2018-07-13 14:53 | Physical Therapy Daily Note ---
PT Daily Note-Current Subjective pt outside pre tx, returning from dialysis, no pain to report, agrees to PT Appearance pt in bed post tx, w/ phone, call light, tray, all needs met, nurse in room Mental Status Patient Orientation: Normal For Age Transfers Functional [place] Measure 0=Not Assessed/NA 4=Minimal Assistance 1=Total Assistance 5=Supervision or Setup 2=Maximal Assistance 6=Modified [place] 3=Moderate Assistance 7=Complete IndependenceIRFPAI Quality Coding Scale 6 Independent with activity with or without an assistive device 5 Patient requires set up or clean up by helper. Patient completes activity by themselves 4 Supervision or touching assist (CGA). [place] provide cues , steadying assist 3 The helper provides less than half the effort to complete the activity 2 The helper provides more than half the effort to complete the activity 1 Dependent. The helper does all the effort to complete an activity 7 Patient refused to complete or attempt activity 9 The patient did not perform the activity before the current illness or injury 88 Not attempted due to Medical conditions or safety concerns Transfers (B, C, W/C) (FIM): 5 Supine to/from Sit: 5 Sit to/from Stand: 5 Car Transfer (QC): 5 (SBA WITH TRANSFER OUT OF CAR. ) SBA for all transfers Weight Bearing Right Lower Extremity: Right Full Weight Bearing Left Lower Extremity: Left Full Weight Bearing Gait Training Does the Patient Walk?: Yes Gait (FIM): 5 Distance: 200',150' Gait Level of Assist: 5 Gait Persons Needed: 1 Gait Assistive Device: FWW pt ambulates from parking lot to room w/ FWW and SBA, gait is slow but steady, no LOB, pt demonstrates flexed knees and posture Treatments gait training Assessment Current Status: Fair Progress improving gait distance and endurance PT Short Term Goals Short Term Goals Time Frame: Jun 29, 2018 Transfers (B,C,W/C) (FIM): 5 (MET) Gait (FIM): 5 (MET) Distance (FIM): 3=150 ft Gait Distance Comment: 200' Gait Level of Assist: 5 Gait Assistive Device: FWW Wheelchair Distance: 250',150'x2 PT Custodial Goals Paper Tube Cutter Goals PT Custodial Goals Time Frame: Jul 13, 2018 Transfers (B,C,W/C) (FIM): 6 Sit to Lying (QC): 6 Lying-Sitting on Side/Bed(QC): 6 Sit to Stand (QC): 6 Rollin Roll Left to Right (QC): 6 Chair/Twi-eb-Lqlfc Xfer(QC): 6 Car Transfer (QC): 6 Does the Patient Walk: Yes Gait (FIM): 6 Distance: SEE PT GOALS Walk 10 feet (QC): 6 Walk 10ft-Uneven Surface(QC): 6 Walk 50ft with 2 Turns (QC): 6 Walk 150 ft (QC): 6 Gait Level of Assist: 6 Gait Assistive Device: FWW Stairs (FIM): 5 (household exception) # of Steps: 4 1 Step (curb) (QC): 6 4 Steps (QC): 6 12 Steps (QC): 0 Picking up an Object (QC): 4 PT Plan Problem List Problem List: Activity Tolerance, Functional Strength, Safety, Balance, Gait, Transfer, Bed Mobility Treatment/Plan Treatment Plan: Continue Plan of Care Treatment Plan: Bed Mobility, Concurrent Therapy, Education, Functional Activity Camryn, Functional Strength, Group Therapy, Gait, Safety, Therapeutic Exercise, Transfers Treatment Duration: Jul 13, 2018 Frequency: Modified Program (IRF) (due to dialysis) Estimated Hrs Per Day: 1.5 hours per day Patient and/or Family Agrees t: Yes Safety Risks/Education Patient Education: Gait Training, Correct Positioning Teaching Recipient: Patient Teaching Methods: Demonstration, Discussion Response to Teaching: Reinforcement Needed Time/GCodes Time In: 1430 Time Out: 1445 Total Billed Treatment Time: 15 Total Billed Treatment 1 visit GT 15' VIPUL HSI PT Jul 13, 2018 14:53
[2018-07-13] MEDS: SCOPOLAMINE 1.5 MG (TRANSDERM-SCOP) PATCH TOP SCH (14:56)
[2018-07-13] MEDS: ENOXAPARIN 30 MG/0.3 ML (LOVENOX) SYR SC SCH (14:57)
[2018-07-13 15:57] VITALS: BP 130/74
--- NOTE | 2018-07-13 19:26 | PM & R (SOAP) Progress Note ---
Subjective This was a face to face visit with the patient. Date Seen by Provider: Jul 13, 2018 Time Seen by Provider: 19:00 Subjective/Events-last exam Patient was seen in his room this evening Patient SBA for transfers Patient had nausea this AM and now agreeable to continuous TUBE feeds for now Objective Physician Exam Last Set of Vital Signs Vital Signs Date Time Temp Pulse Resp B/P (MAP) Pulse Ox O2 Delivery O2 Flow Rate FiO2 07/13/18 15:57 98.0 73 16 130/74 (92) 99 Room Air Capillary Refill : Less Than 3 Seconds I&O Intake and Output 07/13/18 00:00 Intake Total 1890 ml Output Total 525 ml Balance 1365 ml Intake Oral 0 ml IV Total 50 ml Tube Feeding 1320 ml Other 520 ml Output Urine Total 525 ml # Voids 2 # Bowel Movements 1 # Emes[place] 1 General: Alert, Oriented X3, Cooperative, No Acute Distress, Other (Afebrile P =89 RR 16 BP 106/76 02 sats 100%% RA) HEENT: PERRLA, EOMI, Mucous Memb Moist/[place] Neck: Supple, No JVD, Other (Trach functioning) Lungs: Clear to Auscultation Heart: Regular Rate Abdomen: Normal Bowel Sounds, Soft, No Tenderness, Other (Peg tube in place HD catheter in left anterior chest) Extremities: No Edema Skin: Other (Stage 4 pressure sore sacrum) Neuro: Other (Generalized weakness Lower limbs >Upper and RT lower limb >left) Psych/Mental Status: Mental Status NL Results Lab Data Laboratory Tests 07/11/18 00:02: Glucometer 83 07/11/18 06:24: Glucometer 128H 07/11/18 14:12: Glucometer 145H 07/11/18 17:50: Glucometer 127H 07/12/18 00:05: Glucometer 114H 07/12/18 05:46: Glucometer 124H 07/12/18 11:46: Glucometer 117H 07/12/18 17:47: Glucometer 107 07/13/18 00:12: Glucometer 101 07/13/18 06:00: Glucometer 134H 07/13/18 14:48: Glucometer 95 Assessment/Plan Assessment and Plan 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
[2018-07-13] MEDS: POLYETHYLENE GLYCOL 17 GM (MIRALAX) PACK PEG SCH (21:18)
[2018-07-13] MEDS: ZOLPIDEM 5 MG (AMBIEN) TAB PEG SCH (21:19)
[2018-07-13] MEDS: MELATONIN 3 MG TABLET PEG SCH (21:19)
[2018-07-14] MEDS: inSUlin ASPART (NovoLOG) 1 UNIT/0.01 ML (CHARGE PER UNIT) SC SCH ×5 (00:41→23:58)
[2018-07-14 05:00] VITALS: BP 162/79
[2018-07-14] MEDS: CATHETER FLUSH 10 ML SYR IV SCH ×3 (05:41→20:31)
[2018-07-14] MEDS: predniSONE 10 MG TAB PEG SCH (05:41)
[2018-07-14] MEDS: ALPRAZolam 0.5 MG (XANAX) TAB PEG PRN ×2 (06:15→16:00)
[2018-07-14] MEDS: PANTOPRAZOLE 40 MG (PROTONIX) VIAL IV SCH ×2 (07:43→20:30)
[2018-07-14] MEDS: METOCLOPRAMIDE 10MG/10ML ORAL SOL(REGLAN) UDC PEG SCH ×2 (07:44→20:30)
[2018-07-14] MEDS: CHOLESTYRAMINE 4 GM (QUESTRAN LITE, PREVALITE) PKT PEG SCH ×3 (07:44→20:30)
[2018-07-14] MEDS: LACTOBACILLUS ACIDOPHILUS (PROBIOTIC) CAPSULE PEG SCH ×2 (07:44→20:29)
[2018-07-14] MEDS: CARVEDILOL 12.5 MG (COREG) TABLET PEG SCH ×2 (07:44→20:30)
[2018-07-14] MEDS: FOLIC ACID 1 MG TAB PEG SCH (07:44)
[2018-07-14] MEDS: inSUlin DETERMIR 1 UNIT/0.01 ML (LEVEMIR) CHARGE PER UNIT SQ SCH (07:45)
[2018-07-14] MEDS: buPROPion 100 MG (WELLBUTRIN) TAB PEG SCH ×2 (07:45→20:34)
[2018-07-14] MEDS: ACETAMINOPHEN 325 MG TABLET PO PRN ×2 (07:45→16:06)
--- NOTE | 2018-07-14 08:58 | Physical Therapy Daily Note ---
PT Daily Note-Current Subjective pt in bed pre tx, agrees to PT, no pain to report, pt needs assistance getting dressed and putting on shoes Appearance pt in bed post tx w/ phone, call light, tray, all needs met Mental Status Patient Orientation: Normal For Age Transfers Functional [place] Measure 0=Not Assessed/NA 4=Minimal Assistance 1=Total Assistance 5=Supervision or Setup 2=Maximal Assistance 6=Modified [place] 3=Moderate Assistance 7=Complete IndependenceIRFPAI Quality Coding Scale 6 Independent with activity with or without an assistive device 5 Patient requires set up or clean up by helper. Patient completes activity by themselves 4 Supervision or touching assist (CGA). [place] provide cues , steadying assist 3 The helper provides less than half the effort to complete the activity 2 The helper provides more than half the effort to complete the activity 1 Dependent. The helper does all the effort to complete an activity 7 Patient refused to complete or attempt activity 9 The patient did not perform the activity before the current illness or injury 88 Not attempted due to Medical conditions or safety concerns Transfers (B, C, W/C) (FIM): 6 Scootin Rollin Supine to/from Sit: 6 Sit to/from Stand: 6 mod I for all transfers Weight Bearing Right Lower Extremity: Right Full Weight Bearing Left Lower Extremity: Left Full Weight Bearing Gait Training Does the Patient Walk?: Yes Gait (FIM): 6 Distance: 200', 40'x2, 100' Gait Level of Assist: 6 Gait Assistive Device: FWW pt ambulates to/from gym using FWW w/ mod I, gait is steady w/ flexed posture and flexed knees, pt ambulates 40'x2 w/ SPC w/ CGA, cues needed for sequencing, gait w/ SPC is unsteady and pt uses very narrow HELGA, feet nearly touch each other w/ step-to pattern Stair Training Stair Training: Handrails/: 2 handrails Stairs (FIM): 2 #of Steps: 4 Stairs: Pattern: Step to Level of Assist: 5 pt ascends/descends 3x4 steps w/ SBA using two handrails w/ step-to pattern Exercises Supine Ex: Bridging, Hip abd/add (clams in sidelying) Supine Reps: 20 Seated Therapy Exercises: Sit to stand Seated Reps: 20 Treatments gait training, stair training, functional strengthening Assessment Current Status: Fair Progress patient has steadily improving general mobility and endurance PT Short Term Goals Short Term Goals Time Frame: Jun 29, 2018 Transfers (B,C,W/C) (FIM): 5 (MET) Gait (FIM): 5 (MET) Distance (FIM): 3=150 ft Gait Distance Comment: 200' Gait Level of Assist: 5 Gait Assistive Device: FWW Wheelchair Distance: 250',150'x2 PT Mason Liner Goals Custodial Goals PT Mason Liner Goals Time Frame: Jul 13, 2018 Transfers (B,C,W/C) (FIM): 6 Sit to Lying (QC): 6 Lying-Sitting on Side/Bed(QC): 6 Sit to Stand (QC): 6 Rollin Roll Left to Right (QC): 6 Chair/Shr-er-Zosbc Xfer(QC): 6 Car Transfer (QC): 6 Does the Patient Walk: Yes Gait (FIM): 6 Distance: SEE PT GOALS Walk 10 feet (QC): 6 Walk 10ft-Uneven Surface(QC): 6 Walk 50ft with 2 Turns (QC): 6 Walk 150 ft (QC): 6 Gait Level of Assist: 6 Gait Assistive Device: FWW Stairs (FIM): 5 (household exception) # of Steps: 4 1 Step (curb) (QC): 6 4 Steps (QC): 6 12 Steps (QC): 0 Picking up an Object (QC): 4 PT Plan Problem List Problem List: Activity Tolerance, Functional Strength, Safety, Balance, Gait, Transfer Treatment/Plan Treatment Plan: Continue Plan of Care Treatment Plan: Bed Mobility, Concurrent Therapy, Education, Functional Activity Camryn, Functional Strength, Group Therapy, Gait, Safety, Therapeutic Exercise, Transfers Treatment Duration: Jul 13, 2018 Frequency: Modified Program (IRF) (due to dialysis) Estimated Hrs Per Day: 1.5 hours per day Patient and/or Family Agrees t: Yes Safety Risks/Education Patient Education: Gait Training, Transfer Techniques, Steps, Correct Positioning, Safety Issues Teaching Recipient: Patient Teaching Methods: Demonstration, Discussion Response to Teaching: Reinforcement Needed Time/GCodes Time In: 0800 Time Out: 0900 Total Billed Treatment Time: 60 Total Billed Treatment 1 visit GT 20' EX 25' FA 15' DONNELL MA PT Jul 14, 2018 08:58
--- NOTE | 2018-07-14 12:02 | Occupational Ther Daily Note ---
OT Current Status-Daily Note Subjective Pt alert, lying in bed. No c/o pain. Pt agrees to therapy. Pt states that "his legs feel like noodles from PT." Mental Status/Objective Patient Orientation: Person, Place, Time, Situation Functional [place] Measure 0=Not Assessed/NA 4=Minimal Assistance 1=Total Assistance 5=Supervision or Setup 2=Maximal Assistance 6=Modified [place] 3=Moderate Assistance 7=Complete [place] Attachments: IV, PEG Tube, Other-See Comments (PICC) ADL-Treatment Functional [place] Measure 0=Not Assessed/NA 4=Minimal Assistance 1=Total Assistance 5=Supervision or Setup 2=Maximal Assistance 6=Modified [place] 3=Moderate Assistance 7=Complete IndependenceIRFPAI Quality Coding Scale 6 Independent with activity with or without an assistive device 5 Patient requires set up or clean up by helper. Patient completes activity by themselves 4 Supervision or touching assist (CGA). [place] provide cues , steadying assist 3 The helper provides less than half the effort to complete the activity 2 The helper provides more than half the effort to complete the activity 1 Dependent. The helper does all the effort to complete an activity 7 Patient refused to complete or attempt activity 9 The patient did not perform the activity before the current illness or injury 88 Not attempted due to Medical conditions or safety concerns Grooming (FIM): 6 (Mod I, pt completes in sitting in front of sink.) Oral Hygiene (QC): 6 Toileting (FIM): 4 (pt cleanses self in sitting using grabbars for stability. Required CGA for balance during clothing management) Toileting Hygiene (QC): 4 Transfers (B, C, W/C) (FIM): 6 (HOB raised, pt able to go from supine to EOB using arm rail for leverage. Pt uses EOB and FWW for stability on sit to stand. Concern for safety. ) Toilet/Commode Transfer (FIM): 4 (Pt uses grabbars and FWW for stability, CGA for stability on sit to stand) Toilet Transfer (QC): 4 Other Treatment Pt ambulated to therapy gym using FWW for stability. Pt completes fine motor task with 1# wt attached alternating R/L increasing fine motor, finger dexterity and UE strength needed for daily functional tasks. Pt completed 4 UE strengthening exercises/15x/3 sets increasing UE strength needed for transfers and daily functional activity. Pt ambulated back to room using FWW for stability. Pt takes increased time to complete ADLs. Pt had no complaints of nausea throughout session. BLANCO/s helped with maneuvering IV pole throughout session. After therapy, pt lying in bed with call light/phone within reach. All needs met in room. OT Short Term Goals Short Term Goals Time Frame: Jul 06, 2018 Grooming(FIM): 5 Bathing(FIM): 4 Upper Body Dressing(FIM): 4 Lower Body Dressing(FIM): 4 Toileting(FIM): 4 Transfers (B,C,W/C) (FIM): 5 (MET) Toilet/Commode Transfer(FIM): 5 Shower Transfer(FIM): 4 Additional Short Term Goals: 1-Demonstrate ADL Tasks, 2-Verbalize Understanding , 3-ImproveStrength/[place] 1=Demonstrate adherence to instructed precautions during ADL tasks. 2=Patient will verbalize/demonstrate understanding of assistive devices/ modifications for ADL. 3=Patient will improve strength/tolerance for activity to enable patient to perform ADL's. OT Signal Inspector Goals Signal Inspector Goals Time Frame: Jul 20, 2018 Groomin Oral Hygiene (QC): 4 Bathing(FIM): 5 Shower/Bathe Self (QC): 4 Upper Body Dressing(FIM): 5 Upper Body Dressing (QC): 4 Lower Body Dressing(FIM): 5 Lower Body Dressing (QC): 4 On/Off Footwear (QC): 4 Toileting(FIM): 5 Toileting Hygiene (QC): 4 Transfers (B,C,W/C) (FIM): 6 Toilet/Commode Transfer(FIM): 6 Toilet/Commode Transfer (QC): 6 Shower Transfer(FIM): 5 Additional Goals: 1-Demonstrate ADL Tasks, 2-Verbalize Understanding, 3- ImproveStrength/Camryn 1=Demonstrate adherence to instructed precautions during ADL tasks. 2=Patient will verbalize/demonstrate understanding of assistive devices/ modifications for ADL. 3=Patient will improve strength/tolerance for activity to enable patient to perform ADL's. OT Education/Plan Discharge Recommendations Plan/Recommendations: Continue POC Treatment Plan/Plan of Care Patient would benefit from OT for education, treatment and training to promote independence in ADL's, mobility, safety and/or upper extremity function for ADL' s. Plan of Care: ADL Retraining, Functional Mobility, Group Exercise/Act as Ind, UE Funct Exercise/Act Treatment Duration: Jul 20, 2018 Frequency: At least 5 of 7 days/Wk (IRF) Estimated Hrs Per Day: 1.5 hours per day Agreement: Yes Rehab Potential: Fair Time/GCodes Start Time: 10:00 Stop Time: 11:00 Total Time Billed (hr/min): 60 Billed Treatment Time 1 visit- ADL 2 (30 min) EX 2 (30 min) PRICILA CARTER OT Jul 14, 2018 12:02
--- NOTE | 2018-07-14 12:22 | PM & R (SOAP) Progress Note ---
Subjective This was a face to face visit with the patient. Date Seen by Provider: Jul 14, 2018 Time Seen by Provider: 08:00 Subjective/Events-last exam Patient was seen in his room this AM No N/V this AM Patient Modified Independent for transfers Labs including Accucheks reviewed Tolerating Dialyisis TIW Objective Physician Exam Last Set of Vital Signs Vital Signs Date Time Temp Pulse Resp B/P (MAP) Pulse Ox O2 Delivery O2 Flow Rate FiO2 07/14/18 09:00 Room Air 07/14/18 05:00 97.8 80 20 162/79 (106) 100 Capillary Refill : Less Than 3 Seconds I&O Intake and Output 07/14/18 00:00 Intake Total 1310 ml Output Total 825 ml Balance 485 ml Intake Oral 0 ml IV Total 50 ml Tube Feeding 720 ml Other 540 ml Output Urine Total 825 ml # Voids 2 # Bowel Movements 1 # Emes[place] 1 General: Alert, Oriented X3, Cooperative, No Acute Distress, Other (Afebrile P =89 RR 16 BP 106/76 02 sats 100%% RA) HEENT: PERRLA, EOMI, Mucous Memb Moist/[place] Neck: Supple, No JVD, Other (Trach functioning) Lungs: Clear to Auscultation Heart: Regular Rate Abdomen: Normal Bowel Sounds, Soft, No Tenderness, Other (Peg tube in place HD catheter in left anterior chest) Extremities: No Edema Skin: Other (Stage 4 pressure sore sacrum) Neuro: Other (Generalized weakness Lower limbs >Upper and RT lower limb >left) Psych/Mental Status: Mental Status NL Results Lab Data Laboratory Tests 07/11/18 14:12: Glucometer 145H 07/11/18 17:50: Glucometer 127H 07/12/18 00:05: Glucometer 114H 07/12/18 05:46: Glucometer 124H 07/12/18 11:46: Glucometer 117H 07/12/18 17:47: Glucometer 107 07/13/18 00:12: Glucometer 101 07/13/18 06:00: Glucometer 134H 07/13/18 14:48: Glucometer 95 07/14/18 00:40: Glucometer 93 07/14/18 05:40: Glucometer 110 07/14/18 10:58: Glucometer 154H Assessment/Plan Assessment and Plan 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
--- NOTE | 2018-07-14 14:38 | Therapy Group Daily Note ---
Therapy Daily Group Note Patient Education Topic Home Safety, Fall Prevention Exercises LE Seated Exercise, UE Exercise Other/Notes Pt was an active participant in OT/PT group. He introduced himself and shared his favorite thing about janay. He contributed to education/discussion on falls and fall prevention and identified ways to make his environment safer. He also led the group in a seated UE or LE exercise. He walked back to his room with assistance and was left up in bed, all needs met. Start Time: 13:00 Stop Time: 14:15 Total Billed Treatment Time: 75 Total Billed Treatment visit, 75 minutes group SKYE LEE OT Jul 14, 2018 14:38
[2018-07-14] MEDS: ENOXAPARIN 30 MG/0.3 ML (LOVENOX) SYR SC SCH (16:00)
[2018-07-14 17:59] VITALS: BP 153/79
[2018-07-14] MEDS: ZOLPIDEM 5 MG (AMBIEN) TAB PEG SCH (20:30)
[2018-07-14] MEDS: POLYETHYLENE GLYCOL 17 GM (MIRALAX) PACK PEG SCH (20:30)
[2018-07-14] MEDS: MELATONIN 3 MG TABLET PEG SCH (20:34)
[2018-07-15] MEDS: inSUlin ASPART (NovoLOG) 1 UNIT/0.01 ML (CHARGE PER UNIT) SC SCH ×4 (05:17→23:58)
[2018-07-15] MEDS: predniSONE 10 MG TAB PEG SCH (05:23)
[2018-07-15] MEDS: CATHETER FLUSH 10 ML SYR IV SCH ×3 (05:23→20:39)
[2018-07-15 05:29] VITALS: BP 164/81
--- NOTE | 2018-07-15 07:42 | PM & R (SOAP) Progress Note ---
Subjective This was a face to face visit with the patient. Date Seen by Provider: Jul 15, 2018 Time Seen by Provider: 07:10 Subjective/Events-last exam Patient was seen in his room this AM Patient min assist for toileting hygiene No N/V this AM Tolerating Tube feeds well Objective Physician Exam Last Set of Vital Signs Vital Signs Date Time Temp Pulse Resp B/P (MAP) Pulse Ox O2 Delivery O2 Flow Rate FiO2 07/15/18 05:29 97.8 80 16 164/81 (108) 100 Room Air Capillary Refill : Less Than 3 Seconds I&O Intake and Output 07/15/18 00:00 Intake Total 560 ml Output Total 125 ml Balance 435 ml Intake Oral 0 ml Tube Feeding 500 ml Other 60 ml Output Urine Total 125 ml # Voids 4 # Bowel Movements 5 General: Alert, Oriented X3, Cooperative, No Acute Distress, Other (Afebrile P =89 RR 16 BP 106/76 02 sats 100%% RA) HEENT: PERRLA, EOMI, Mucous Memb Moist/[place] Neck: Supple, No JVD, Other (Trach functioning) Lungs: Clear to Auscultation Heart: Regular Rate Abdomen: Normal Bowel Sounds, Soft, No Tenderness, Other (Peg tube in place HD catheter in left anterior chest) Extremities: No Edema Skin: Other (Stage 4 pressure sore sacrum) Neuro: Other (Generalized weakness Lower limbs >Upper and RT lower limb >left) Psych/Mental Status: Mental Status NL Results Lab Data Laboratory Tests 07/12/18 11:46: Glucometer 117H 07/12/18 17:47: Glucometer 107 07/13/18 00:12: Glucometer 101 07/13/18 06:00: Glucometer 134H 07/13/18 14:48: Glucometer 95 07/14/18 00:40: Glucometer 93 07/14/18 05:40: Glucometer 110 07/14/18 10:58: Glucometer 154H 07/14/18 17:45: Glucometer 111H 07/14/18 23:54: Glucometer 81 07/15/18 05:15: Glucometer 165H Assessment/Plan Assessment and Plan 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
[2018-07-15] MEDS: FOLIC ACID 1 MG TAB PEG SCH (08:04)
[2018-07-15] MEDS: CARVEDILOL 12.5 MG (COREG) TABLET PEG SCH ×2 (08:04→20:39)
[2018-07-15] MEDS: ALPRAZolam 0.5 MG (XANAX) TAB PEG PRN ×2 (08:04→16:05)
[2018-07-15] MEDS: LACTOBACILLUS ACIDOPHILUS (PROBIOTIC) CAPSULE PEG SCH ×2 (08:04→20:39)
[2018-07-15] MEDS: CHOLESTYRAMINE 4 GM (QUESTRAN LITE, PREVALITE) PKT PEG SCH ×3 (08:04→20:39)
[2018-07-15] MEDS: METOCLOPRAMIDE 10MG/10ML ORAL SOL(REGLAN) UDC PEG SCH ×2 (08:04→20:39)
[2018-07-15] MEDS: PANTOPRAZOLE 40 MG (PROTONIX) VIAL IV SCH ×2 (08:04→20:39)
[2018-07-15] MEDS: inSUlin DETERMIR 1 UNIT/0.01 ML (LEVEMIR) CHARGE PER UNIT SQ SCH (08:05)
[2018-07-15] MEDS: buPROPion 100 MG (WELLBUTRIN) TAB PEG SCH ×2 (08:05→20:39)
--- NOTE | 2018-07-15 09:40 | Physical Therapy Daily Note ---
PT Daily Note-Current Subjective Pt. quiet and solemn today. Agrees to short Rx, states that dialysis wears him out Pain Numeric Pain Scale: 0-No Pain Mental Status Patient Orientation: Normal For Age Attachments: PEG Tube, IV Transfers Functional [place] Measure 0=Not Assessed/NA 4=Minimal Assistance 1=Total Assistance 5=Supervision or Setup 2=Maximal Assistance 6=Modified [place] 3=Moderate Assistance 7=Complete IndependenceIRFPAI Quality Coding Scale 6 Independent with activity with or without an assistive device 5 Patient requires set up or clean up by helper. Patient completes activity by themselves 4 Supervision or touching assist (CGA). [place] provide cues , steadying assist 3 The helper provides less than half the effort to complete the activity 2 The helper provides more than half the effort to complete the activity 1 Dependent. The helper does all the effort to complete an activity 7 Patient refused to complete or attempt activity 9 The patient did not perform the activity before the current illness or injury 88 Not attempted due to Medical conditions or safety concerns Transfers (B, C, W/C) (FIM): 6 Scootin Rollin Supine to/from Sit: 6 Sit to/from Stand: 6 Bed to/from Chair: 6 Weight Bearing Right Lower Extremity: Right Full Weight Bearing Left Lower Extremity: Left Full Weight Bearing Gait Training Does the Patient Walk?: Yes Gait (FIM): 5 Distance (FIM): 3=150 ft (200x2) Gait Level of Assist: 5 Gait Persons Needed: 1 Gait Assistive Device: FWW assist IV etc. flexed over FWW, AFO not on per pt. request today so he high steps right Exercises Seated Therapy Exercises: Ankle pumps, Sit to stand, Long arc quads, Hip flexion, Hip abd/add, Glut set Seated Reps: 15 Treatments needed to toilet urgently, wanted to sit on toilet. incont of BM, mod assist for clean up Assessment Current Status: Good Progress appears depressed this date PT Short Term Goals Short Term Goals Time Frame: Jun 29, 2018 Transfers (B,C,W/C) (FIM): 5 (MET) Gait (FIM): 5 (MET) Distance (FIM): 3=150 ft Gait Distance Comment: 200' Gait Level of Assist: 5 Gait Assistive Device: FWW Wheelchair Distance: 250',150'x2 PT Snf Goals Snf Goals PT Snf Goals Time Frame: Jul 13, 2018 Transfers (B,C,W/C) (FIM): 6 Sit to Lying (QC): 6 Lying-Sitting on Side/Bed(QC): 6 Sit to Stand (QC): 6 Rollin Roll Left to Right (QC): 6 Chair/Grb-en-Dzzet Xfer(QC): 6 Car Transfer (QC): 6 Does the Patient Walk: Yes Gait (FIM): 6 Distance: SEE PT GOALS Walk 10 feet (QC): 6 Walk 10ft-Uneven Surface(QC): 6 Walk 50ft with 2 Turns (QC): 6 Walk 150 ft (QC): 6 Gait Level of Assist: 6 Gait Assistive Device: FWW Stairs (FIM): 5 (household exception) # of Steps: 4 1 Step (curb) (QC): 6 4 Steps (QC): 6 12 Steps (QC): 0 Picking up an Object (QC): 4 PT Plan Treatment/Plan Treatment Plan: Continue Plan of Care Treatment Plan: Bed Mobility, Concurrent Therapy, Education, Functional Activity Camryn, Functional Strength, Group Therapy, Gait, Safety, Therapeutic Exercise, Transfers Treatment Duration: Jul 13, 2018 Frequency: Modified Program (IRF) (due to dialysis) Estimated Hrs Per Day: 1.5 hours per day Patient and/or Family Agrees t: Yes Safety Risks/Education Patient Education: Gait Training, Transfer Techniques Teaching Recipient: Patient Teaching Methods: Demonstration, Discussion Response to Teaching: Verbalize Understanding, Return Demonstration, Reinforcement Needed Time/GCodes Time In: 820 Time Out: 845 Total Billed Treatment Time: 25 Total Billed Treatment 1,EX10m,GT15m G Codes Necessary: DARYL Cain AITCHBONE BREAKER Jul 15, 2018 09:40
[2018-07-15 15:54] VITALS: BP 96/57
[2018-07-15] MEDS: ENOXAPARIN 30 MG/0.3 ML (LOVENOX) SYR SC SCH (16:04)
[2018-07-15] MEDS: ZOLPIDEM 5 MG (AMBIEN) TAB PEG SCH (20:39)
[2018-07-15] MEDS: MELATONIN 3 MG TABLET PEG SCH (20:39)
[2018-07-15 20:43] VITALS: BP 153/71
[2018-07-16] MEDS: ALPRAZolam 0.5 MG (XANAX) TAB PEG PRN ×3 (02:50→20:22)
[2018-07-16] MEDS: inSUlin ASPART (NovoLOG) 1 UNIT/0.01 ML (CHARGE PER UNIT) SC SCH ×3 (05:11→18:31)
[2018-07-16 06:06] VITALS: BP 151/75
[2018-07-16] MEDS: predniSONE 10 MG TAB PEG SCH (06:29)
[2018-07-16] MEDS: CATHETER FLUSH 10 ML SYR IV SCH ×3 (06:29→22:27)
[2018-07-16] MEDS: PANTOPRAZOLE 40 MG (PROTONIX) VIAL IV SCH ×2 (08:52→20:23)
[2018-07-16] MEDS: CHOLESTYRAMINE 4 GM (QUESTRAN LITE, PREVALITE) PKT PEG SCH ×3 (08:52→22:26)
[2018-07-16] MEDS: LACTOBACILLUS ACIDOPHILUS (PROBIOTIC) CAPSULE PEG SCH ×2 (08:53→20:19)
[2018-07-16] MEDS: buPROPion 100 MG (WELLBUTRIN) TAB PEG SCH ×2 (08:53→20:19)
[2018-07-16] MEDS: FOLIC ACID 1 MG TAB PEG SCH (08:53)
[2018-07-16] MEDS: CARVEDILOL 12.5 MG (COREG) TABLET PEG SCH ×2 (08:53→20:19)
[2018-07-16] MEDS: inSUlin DETERMIR 1 UNIT/0.01 ML (LEVEMIR) CHARGE PER UNIT SQ SCH (08:53)
[2018-07-16] MEDS: METOCLOPRAMIDE 10MG/10ML ORAL SOL(REGLAN) UDC PEG SCH ×2 (09:07→20:19)
[2018-07-16] MEDS: SCOPOLAMINE 1.5 MG (TRANSDERM-SCOP) PATCH TOP SCH (12:34)
[2018-07-16] MEDS: ENOXAPARIN 30 MG/0.3 ML (LOVENOX) SYR SC SCH (15:39)
[2018-07-16 16:10] VITALS: BP 161/83
[2018-07-16] MEDS: ZOLPIDEM 5 MG (AMBIEN) TAB PEG SCH (20:19)
[2018-07-16] MEDS: MELATONIN 3 MG TABLET PEG SCH (20:19)
[2018-07-17 05:53] VITALS: BP 177/84
[2018-07-17] MEDS: inSUlin ASPART (NovoLOG) 1 UNIT/0.01 ML (CHARGE PER UNIT) SC SCH ×4 (06:00→17:51)
[2018-07-17] MEDS: CATHETER FLUSH 10 ML SYR IV SCH ×3 (06:02→22:47)
[2018-07-17] MEDS: predniSONE 10 MG TAB PEG SCH (06:03)
--- NOTE | 2018-07-17 08:59 | Physical Therapy Daily Note ---
PT Daily Note-Current Subjective pt in bed pre tx, agrees to PT, no pain to report Appearance pt in bed post tx w/ phone, call light, tray, all needs met Mental Status Patient Orientation: Normal For Age Attachments: PEG Tube Transfers Functional [place] Measure 0=Not Assessed/NA 4=Minimal Assistance 1=Total Assistance 5=Supervision or Setup 2=Maximal Assistance 6=Modified [place] 3=Moderate Assistance 7=Complete IndependenceIRFPAI Quality Coding Scale 6 Independent with activity with or without an assistive device 5 Patient requires set up or clean up by helper. Patient completes activity by themselves 4 Supervision or touching assist (CGA). [place] provide cues , steadying assist 3 The helper provides less than half the effort to complete the activity 2 The helper provides more than half the effort to complete the activity 1 Dependent. The helper does all the effort to complete an activity 7 Patient refused to complete or attempt activity 9 The patient did not perform the activity before the current illness or injury 88 Not attempted due to Medical conditions or safety concerns Transfers (B, C, W/C) (FIM): 5 Scootin Rollin Supine to/from Sit: 6 Sit to/from Stand: 5 bed mobility mod I, sit<->stand SBA Weight Bearing Right Lower Extremity: Right Full Weight Bearing Left Lower Extremity: Left Full Weight Bearing Gait Training Does the Patient Walk?: Yes Gait (FIM): 5 Distance: 150'x2, 30'x2 Gait Level of Assist: 5 Gait Persons Needed: 1 Gait Assistive Device: FWW pt ambulates to/from gym w/ SBA using FWW, gait is steady, no LOB, GT w/ SPC 30'x2 w/ CGA, occasional LOB, but pt is able to catch himself, improved overall balance and stability w/ turns, decreased cues needed for sequencing Stair Training Stair Training: Handrails/: 2 handrails Stairs (FIM): 2 #of Steps: 4 Stairs: Pattern: Step to Level of Assist: 5 pt ascends/descends 2x4 steps and 1x8 steps w/ SBA using both handrails and step -to pattern, cues needed for leaning forward and hand placement while descending to increase stability Exercises Seated Therapy Exercises: Long arc quads, Hip flexion Seated Reps: 20 NuStep Minutes: 10 NuStep Workload: 4 Treatments gait training, functional strengthening, stair training, endurance training Assessment Current Status: Fair Progress improved stability and balance while ambulating w/ SPC, increased number of stairs, patient vomited during treatment but was able to continue PT Short Term Goals Short Term Goals Time Frame: Jun 29, 2018 Transfers (B,C,W/C) (FIM): 5 (MET) Gait (FIM): 5 (MET) Distance (FIM): 3=150 ft Gait Distance Comment: 200' Gait Level of Assist: 5 Gait Assistive Device: FWW Wheelchair Distance: 250',150'x2 PT Perfect Binder Feeder Offbearer Goals Perfect Binder Feeder Offbearer Goals PT Usp Goals Time Frame: Jul 13, 2018 Transfers (B,C,W/C) (FIM): 6 Sit to Lying (QC): 6 Lying-Sitting on Side/Bed(QC): 6 Sit to Stand (QC): 6 Rollin Roll Left to Right (QC): 6 Chair/Uvd-nu-Qwmip Xfer(QC): 6 Car Transfer (QC): 6 Does the Patient Walk: Yes Gait (FIM): 6 Distance: SEE PT GOALS Walk 10 feet (QC): 6 Walk 10ft-Uneven Surface(QC): 6 Walk 50ft with 2 Turns (QC): 6 Walk 150 ft (QC): 6 Gait Level of Assist: 6 Gait Assistive Device: FWW Stairs (FIM): 5 (household exception) # of Steps: 4 1 Step (curb) (QC): 6 4 Steps (QC): 6 12 Steps (QC): 0 Picking up an Object (QC): 4 PT Plan Problem List Problem List: Activity Tolerance, Functional Strength, Safety, Balance, Gait, Transfer, Bed Mobility Treatment/Plan Treatment Plan: Continue Plan of Care Treatment Plan: Bed Mobility, Concurrent Therapy, Education, Functional Activity Camryn, Functional Strength, Group Therapy, Gait, Safety, Therapeutic Exercise, Transfers Treatment Duration: Jul 13, 2018 Frequency: Modified Program (IRF) (due to dialysis) Estimated Hrs Per Day: 1.5 hours per day Patient and/or Family Agrees t: Yes Safety Risks/Education Patient Education: Gait Training, Transfer Techniques, Steps, Correct Positioning, Safety Issues Teaching Recipient: Patient Teaching Methods: Demonstration, Discussion Response to Teaching: Reinforcement Needed Time/GCodes Time In: 0800 Time Out: 0900 Total Billed Treatment Time: 60 Total Billed Treatment 1 visit GT 30' EX 30' DONNELL MA PT Jul 17, 2018 08:59
[2018-07-17] MEDS: PANTOPRAZOLE 40 MG (PROTONIX) VIAL IV SCH ×2 (09:25→20:07)
[2018-07-17] MEDS: LACTOBACILLUS ACIDOPHILUS (PROBIOTIC) CAPSULE PEG SCH ×2 (09:25→20:07)
[2018-07-17] MEDS: ALPRAZolam 0.5 MG (XANAX) TAB PEG PRN ×2 (09:26→17:48)
[2018-07-17] MEDS: FOLIC ACID 1 MG TAB PEG SCH (09:26)
[2018-07-17] MEDS: buPROPion 100 MG (WELLBUTRIN) TAB PEG SCH ×2 (09:26→20:07)
[2018-07-17] MEDS: CARVEDILOL 12.5 MG (COREG) TABLET PEG SCH ×2 (09:26→20:08)
[2018-07-17] MEDS: CHOLESTYRAMINE 4 GM (QUESTRAN LITE, PREVALITE) PKT PEG SCH ×3 (09:27→22:47)
[2018-07-17] MEDS: METOCLOPRAMIDE 10MG/10ML ORAL SOL(REGLAN) UDC PEG SCH ×2 (09:27→20:08)
[2018-07-17] MEDS: inSUlin DETERMIR 1 UNIT/0.01 ML (LEVEMIR) CHARGE PER UNIT SQ SCH (09:27)
[2018-07-17] MEDS: DARBEPOETIN 100 MCG/ML (ARANESP) 1 ML VIAL SC SCH (09:49)
--- NOTE | 2018-07-17 11:22 | Occupational Ther Daily Note ---
OT Current Status-Daily Note Subjective Pt alert, lying in bed. No c/o pain. Pt agrees to therapy. Mental Status/Objective Patient Orientation: Person, Place, Time, Situation Functional [place] Measure 0=Not Assessed/NA 4=Minimal Assistance 1=Total Assistance 5=Supervision or Setup 2=Maximal Assistance 6=Modified [place] 3=Moderate Assistance 7=Complete [place] Attachments: IV, PEG Tube, Other-See Comments (PICC) ADL-Treatment Functional [place] Measure 0=Not Assessed/NA 4=Minimal Assistance 1=Total Assistance 5=Supervision or Setup 2=Maximal Assistance 6=Modified [place] 3=Moderate Assistance 7=Complete IndependenceIRFPAI Quality Coding Scale 6 Independent with activity with or without an assistive device 5 Patient requires set up or clean up by helper. Patient completes activity by themselves 4 Supervision or touching assist (CGA). [place] provide cues , steadying assist 3 The helper provides less than half the effort to complete the activity 2 The helper provides more than half the effort to complete the activity 1 Dependent. The helper does all the effort to complete an activity 7 Patient refused to complete or attempt activity 9 The patient did not perform the activity before the current illness or injury 88 Not attempted due to Medical conditions or safety concerns Grooming (FIM): 6 (Mod I, pt completes in sitting position in front of sink. ) Oral Hygiene (QC): 6 Bathing (FIM): 6 (Mod I, pt completes using grabbars, shower bench, long handled sponge and hand held shower. ) Bathing Location: L Arm, R Arm, L Upper Leg, R Upper Leg, L Lower Leg ( including foot), R Lower Leg (including foot), Chest, Abdomen, Buttocks, Perineal Area Shower/Bathe Self (QC): 6 Upper Body (FIM): 5 (Set up. Pt able to don/doff UE dressing in sitting position.) Upper Body Dressing (QC): 5 Lower Body Dressing (FIM): 4 (Set up. Pt able to don/doff LE dressing and socks using AE. Pt able to don/doff L shoe using AE, assist on R shoe due to AFO. Able to don/doff R shoe without AFO.) Lower Body Dressing (QC): 4 On/Off Footwear (QC): 4 Transfers (B, C, W/C) (FIM): 6 (Pt went from supine to EOB using bed rail for leverage. Pt used EOB and FWW for stability in sit to stand.) Shower Transfer(FIM): 6 (Pt completes using grabbars, shower bench and FWW for stability.) Pt requires assist with IV/feeding pole during ambulation. Other Treatment Pt ambulated to therapy gym using FWW for stability. Pt completed resistive pegs and clothespins bilaterally with 1# wt attached increasing UE strength and fine motor skills needed for daily functional tasks. Pt completed 3 wrist strengthening exercises/15x/3 sets increasing wrist strength needed for transfers and daily functional tasks. Pt ambulated to room using FWW for stability, assist with IV/feeding pole and tubing. Pt takes increased amount of time to complete tasks needing rest breaks between tasks. Pt had some complaints of nausea stating "he's not sure if he'd nauseas or not." After therapy, pt lying in bed with call light/phone within reach. All needs met in room. OT Short Term Goals Short Term Goals Time Frame: Jul 06, 2018 Grooming(FIM): 5 Bathing(FIM): 4 Upper Body Dressing(FIM): 4 Lower Body Dressing(FIM): 4 Toileting(FIM): 4 Transfers (B,C,W/C) (FIM): 5 (MET) Toilet/Commode Transfer(FIM): 5 Shower Transfer(FIM): 4 Additional Short Term Goals: 1-Demonstrate ADL Tasks, 2-Verbalize Understanding , 3-ImproveStrength/Camryn 1=Demonstrate adherence to instructed precautions during ADL tasks. 2=Patient will verbalize/demonstrate understanding of assistive devices/ modifications for ADL. 3=Patient will improve strength/tolerance for activity to enable patient to perform ADL's. OT Yardage Caller Goals Yardage Caller Goals Time Frame: Jul 20, 2018 Groomin Oral Hygiene (QC): 4 Bathing(FIM): 5 Shower/Bathe Self (QC): 4 Upper Body Dressing(FIM): 5 Upper Body Dressing (QC): 4 Lower Body Dressing(FIM): 5 Lower Body Dressing (QC): 4 On/Off Footwear (QC): 4 Toileting(FIM): 5 Toileting Hygiene (QC): 4 Transfers (B,C,W/C) (FIM): 6 Toilet/Commode Transfer(FIM): 6 Toilet/Commode Transfer (QC): 6 Shower Transfer(FIM): 5 Additional Goals: 1-Demonstrate ADL Tasks, 2-Verbalize Understanding, 3- ImproveStrength/Camryn 1=Demonstrate adherence to instructed precautions during ADL tasks. 2=Patient will verbalize/demonstrate understanding of assistive devices/ modifications for ADL. 3=Patient will improve strength/tolerance for activity to enable patient to perform ADL's. OT Education/Plan Discharge Recommendations Plan/Recommendations: Continue POC Treatment Plan/Plan of Care Patient would benefit from OT for education, treatment and training to promote independence in ADL's, mobility, safety and/or upper extremity function for ADL' s. Plan of Care: ADL Retraining, Functional Mobility, Group Exercise/Act as Ind, UE Funct Exercise/Act Treatment Duration: Jul 20, 2018 Frequency: At least 5 of 7 days/Wk (IRF) Estimated Hrs Per Day: 1.5 hours per day Agreement: Yes Rehab Potential: Fair Time/GCodes Start Time: 10:00 Stop Time: 11:30 Total Time Billed (hr/min): 90 Billed Treatment Time 1 visit- ADL 3 (45 min) EX 3 (45 min) VIPUL KIRK Jul 17, 2018 11:22
--- NOTE | 2018-07-17 14:14 | Occupational Ther Daily Note ---
OT Current Status-Daily Note Subjective Pt alert, lying in bed. No c/o pain. Pt agrees to therapy. Mental Status/Objective Patient Orientation: Person, Place, Time, Situation Functional [place] Measure 0=Not Assessed/NA 4=Minimal Assistance 1=Total Assistance 5=Supervision or Setup 2=Maximal Assistance 6=Modified [place] 3=Moderate Assistance 7=Complete [place] Attachments: IV, PEG Tube, Other-See Comments (PICC) ADL-Treatment Functional [place] Measure 0=Not Assessed/NA 4=Minimal Assistance 1=Total Assistance 5=Supervision or Setup 2=Maximal Assistance 6=Modified [place] 3=Moderate Assistance 7=Complete IndependenceIRFPAI Quality Coding Scale 6 Independent with activity with or without an assistive device 5 Patient requires set up or clean up by helper. Patient completes activity by themselves 4 Supervision or touching assist (CGA). [place] provide cues , steadying assist 3 The helper provides less than half the effort to complete the activity 2 The helper provides more than half the effort to complete the activity 1 Dependent. The helper does all the effort to complete an activity 7 Patient refused to complete or attempt activity 9 The patient did not perform the activity before the current illness or injury 88 Not attempted due to Medical conditions or safety concerns Transfers (B, C, W/C) (FIM): 6 (Pt able to go from supine to EOB using bed rail for leverage. Pt uses EOB and FWW for stability on sit to stand. ) Other Treatment Pt maneuvered around hospital at w/c level practicing on different surfaces and incline/declines increasing activity tolerance and UE strength needed for daily functional activity. After therapy, pt lying in bed with call light/phone within reach. All needs met in room. Family and nrsg present in room. OT Short Term Goals Short Term Goals Time Frame: Jul 06, 2018 Grooming(FIM): 5 Bathing(FIM): 4 Upper Body Dressing(FIM): 4 Lower Body Dressing(FIM): 4 Toileting(FIM): 4 Transfers (B,C,W/C) (FIM): 5 (MET) Toilet/Commode Transfer(FIM): 5 Shower Transfer(FIM): 4 Additional Short Term Goals: 1-Demonstrate ADL Tasks, 2-Verbalize Understanding , 3-ImproveStrength/[place] 1=Demonstrate adherence to instructed precautions during ADL tasks. 2=Patient will verbalize/demonstrate understanding of assistive devices/ modifications for ADL. 3=Patient will improve strength/tolerance for activity to enable patient to perform ADL's. OT Nursing Home Goals Nursing Home Goals Time Frame: Jul 20, 2018 Groomin Oral Hygiene (QC): 4 Bathing(FIM): 5 Shower/Bathe Self (QC): 4 Upper Body Dressing(FIM): 5 Upper Body Dressing (QC): 4 Lower Body Dressing(FIM): 5 Lower Body Dressing (QC): 4 On/Off Footwear (QC): 4 Toileting(FIM): 5 Toileting Hygiene (QC): 4 Transfers (B,C,W/C) (FIM): 6 Toilet/Commode Transfer(FIM): 6 Toilet/Commode Transfer (QC): 6 Shower Transfer(FIM): 5 Additional Goals: 1-Demonstrate ADL Tasks, 2-Verbalize Understanding, 3- ImproveStrength/Camryn 1=Demonstrate adherence to instructed precautions during ADL tasks. 2=Patient will verbalize/demonstrate understanding of assistive devices/ modifications for ADL. 3=Patient will improve strength/tolerance for activity to enable patient to perform ADL's. OT Education/Plan Discharge Recommendations Plan/Recommendations: Continue POC Treatment Plan/Plan of Care Patient would benefit from OT for education, treatment and training to promote independence in ADL's, mobility, safety and/or upper extremity function for ADL' s. Plan of Care: ADL Retraining, Functional Mobility, Group Exercise/Act as Ind, UE Funct Exercise/Act Treatment Duration: Jul 20, 2018 Frequency: At least 5 of 7 days/Wk (IRF) Estimated Hrs Per Day: 1.5 hours per day Agreement: Yes Rehab Potential: Fair Time/GCodes Start Time: 13:30 Stop Time: 14:05 Total Time Billed (hr/min): 35 Billed Treatment Time 1 visit- FA 2 (35 min) VIPUL KIRK Jul 17, 2018 14:14
--- NOTE | 2018-07-17 14:42 | Occ Therapy Rehab Re-Cert ---
OT Re-Certification Form Plan of Care: ADL Retraining, Functional Mobility, Group Exercise/Act as Ind, UE Funct Exercise/Act Pt. continues to be seen by occupational therapy to increase independence in all functional areas of daily living. Pt. has met many goals but does continue toward full independence. Pt. demonstrates fatigue and weakness at times with increased activity. Would benefit from skilled treatment to increase overall endurance and activity level with ADLs. Treatment Duration: -15-18 Frequency: At least 5 of 7 days/Wk (IRF) Estimated Hrs Per Day: 1.5 hours per day Agreement: Yes Rehab Potential: Good OT Short Term Goals Short Term Goals Time Frame: Jul 06, 2018 Grooming(FIM): 5 Bathing(FIM): 4 Upper Body Dressing(FIM): 4 Lower Body Dressing(FIM): 4 Toileting(FIM): 4 Transfers (B,C,W/C) (FIM): 5 (MET) Toilet/Commode Transfer(FIM): 5 Shower Transfer(FIM): 4 Additional Short Term Goals: 1-Demonstrate ADL Tasks, 2-Verbalize Understanding , 3-ImproveStrength/[place] 1=Demonstrate adherence to instructed precautions during ADL tasks. 2=Patient will verbalize/demonstrate understanding of assistive devices/ modifications for ADL. 3=Patient will improve strength/tolerance for activity to enable patient to perform ADL's. OT Nurse Private Duty Goals Nurse Private Duty Goals Time Frame: Jul 20, 2018 Grooming(FIM): 5 (met) Bathing(FIM): 5 (met) Upper Body Dressing(FIM): 5 (met) Lower Body Dressing(FIM): 5 (ongoing) Toileting(FIM): 5 (met) Transfers (B,C,W/C) (FIM): 6 (met) Toilet/Commode Transfer(FIM): 6 (met) Shower Transfer(FIM): 5 (met) Additional Goals: 1-Demonstrate ADL Tasks, 2-Verbalize Understanding, 3- ImproveStrength/Camryn 1=Demonstrate adherence to instructed precautions during ADL tasks. 2=Patient will verbalize/demonstrate understanding of assistive devices/ modifications for ADL. 3=Patient will improve strength/tolerance for activity to enable patient to perform ADL's. JOSE EMERSON OT Jul 17, 2018 14:42
[2018-07-17] MEDS: ONDANSETRON 4 MG/2 ML (SDV) Z0FRAN IVP PRN ×2 (15:06→20:30)
--- NOTE | 2018-07-17 15:12 | Physical Therapy Daily Note ---
PT Daily Note-Current Subjective pt in bed pre tx, agrees to PT, no pain to report Mental Status Patient Orientation: Normal For Age Attachments: PEG Tube pt in bed post tx w/ phone, call light, tray, all needs met Transfers Functional [place] Measure 0=Not Assessed/NA 4=Minimal Assistance 1=Total Assistance 5=Supervision or Setup 2=Maximal Assistance 6=Modified [place] 3=Moderate Assistance 7=Complete IndependenceIRFPAI Quality Coding Scale 6 Independent with activity with or without an assistive device 5 Patient requires set up or clean up by helper. Patient completes activity by themselves 4 Supervision or touching assist (CGA). [place] provide cues , steadying assist 3 The helper provides less than half the effort to complete the activity 2 The helper provides more than half the effort to complete the activity 1 Dependent. The helper does all the effort to complete an activity 7 Patient refused to complete or attempt activity 9 The patient did not perform the activity before the current illness or injury 88 Not attempted due to Medical conditions or safety concerns Transfers (B, C, W/C) (FIM): 5 Rollin Supine to/from Sit: 6 Sit to/from Stand: 5 sit->stand SBA, supine<->sit mod I Weight Bearing Right Lower Extremity: Right Full Weight Bearing Left Lower Extremity: Left Full Weight Bearing Gait Training Does the Patient Walk?: Yes Gait (FIM): 5 Distance: 60',100', 150' Gait Level of Assist: 5 Gait Persons Needed: 1 Gait Assistive Device: FWW pt ambulates to gym 60', 100' w/ SPC, CGA, step-to pattern, flexed posture w/ flexed knees w/ slight LOB occasionally, but is able to correct himself pt ambulates from gym 150' w/ FWW due to fatigue, SBA, no LOB Exercises Standing: Hamstring curls, Heel/toe raises, 3 way Ex=Flex, Abd, Ext, Sit to Stand (5) Standing Reps: 30 pt nauseous and vomited after finishing standing exercises Treatments functional strengthening, gait training Assessment Current Status: Fair Progress improved gait distance and stability w/ SPC PT Short Term Goals Short Term Goals Time Frame: Jun 29, 2018 Transfers (B,C,W/C) (FIM): 5 (MET) Gait (FIM): 5 (MET) Distance (FIM): 3=150 ft Gait Distance Comment: 200' Gait Level of Assist: 5 Gait Assistive Device: FWW Wheelchair Distance: 250',150'x2 PT Shelter Goals Shelter Goals PT Shelter Goals Time Frame: Jul 13, 2018 Transfers (B,C,W/C) (FIM): 6 Sit to Lying (QC): 6 Lying-Sitting on Side/Bed(QC): 6 Sit to Stand (QC): 6 Rollin Roll Left to Right (QC): 6 Chair/Ygx-sj-Oupcl Xfer(QC): 6 Car Transfer (QC): 6 Does the Patient Walk: Yes Gait (FIM): 6 Distance: SEE PT GOALS Walk 10 feet (QC): 6 Walk 10ft-Uneven Surface(QC): 6 Walk 50ft with 2 Turns (QC): 6 Walk 150 ft (QC): 6 Gait Level of Assist: 6 Gait Assistive Device: FWW Stairs (FIM): 5 (household exception) # of Steps: 4 1 Step (curb) (QC): 6 4 Steps (QC): 6 12 Steps (QC): 0 Picking up an Object (QC): 4 PT Plan Problem List Problem List: Activity Tolerance, Functional Strength, Safety, Balance, Gait, Transfer, Bed Mobility Treatment/Plan Treatment Plan: Continue Plan of Care Treatment Plan: Bed Mobility, Concurrent Therapy, Education, Functional Activity Camryn, Functional Strength, Group Therapy, Gait, Safety, Therapeutic Exercise, Transfers Treatment Duration: Jul 13, 2018 Frequency: Modified Program (IRF) (due to dialysis) Estimated Hrs Per Day: 1.5 hours per day Patient and/or Family Agrees t: Yes Safety Risks/Education Patient Education: Gait Training, Transfer Techniques, Correct Positioning, Safety Issues Teaching Recipient: Patient Teaching Methods: Demonstration, Discussion Response to Teaching: Reinforcement Needed Time/GCodes Time In: 1430 Time Out: 1500 Total Billed Treatment Time: 30 Total Billed Treatment 1 visit GT 15' EX 15' JOHN MOYER PT Jul 17, 2018 15:12
[2018-07-17 16:35] VITALS: BP 183/87
[2018-07-17] MEDS: ENOXAPARIN 30 MG/0.3 ML (LOVENOX) SYR SC SCH (16:35)
--- NOTE | 2018-07-17 19:22 | PM & R (SOAP) Progress Note ---
Subjective This was a face to face visit with the patient. Date Seen by Provider: Jul 17, 2018 Time Seen by Provider: 18:30 Subjective/Events-last exam Patient was seen in his rrom this evening Discussed case with DR Russell who feels wounds are on track for healing Discussed case with RN who notes Eleeeeevated SBP Asdked her to inform Dialysis center in AM re any adjustment in Dialysis.Patient stll c/o loose stools will increase Med se orders.Patient Modified Independent to supervision for transfers Date Identified: Jul 17, 2018 Time Identified: 18:30 Medication Intervention: Increase uestran for loose stools Renal to f/u re Elevated SBP Review of Systems Gastrointestinal: Other (loose stools Patient on T Feeds) Objective Physician Exam Last Set of Vital Signs Vital Signs Date Time Temp Pulse Resp B/P (MAP) Pulse Ox O2 Delivery O2 Flow Rate FiO2 07/17/18 16:35 98.3 77 16 183/87 (119) 99 Room Air Capillary Refill : Less Than 3 Seconds I&O Intake and Output 07/17/18 00:00 Intake Total 1840 ml Output Total 300 ml Balance 1540 ml Intake Oral 0 ml Tube Feeding 1320 ml Other 520 ml Output Urine Total 300 ml # Voids 1 # Bowel Movements 3 General: Alert, Oriented X3, Cooperative, No Acute Distress, Other (Afebrile P =89 RR 16 BP 106/76 02 sats 100%% RA) HEENT: PERRLA, EOMI, Mucous Memb Moist/[place] Neck: Supple, No JVD, Other (Trach functioning) Lungs: Clear to Auscultation Heart: Regular Rate Abdomen: Normal Bowel Sounds, Soft, No Tenderness, Other (Peg tube in place HD catheter in left anterior chest) Extremities: No Edema Skin: Other (Stage 4 pressure sore sacrum) Neuro: Other (Generalized weakness Lower limbs >Upper and RT lower limb >left) Psych/Mental Status: Mental Status NL Results Lab Data Laboratory Tests 07/14/18 23:54: Glucometer 81 07/15/18 05:15: Glucometer 165H 07/15/18 15:51: Glucometer 106 07/15/18 18:18: Glucometer 113H 07/15/18 23:57: Glucometer 86 07/16/18 05:08: Glucometer 139H 07/16/18 12:15: Glucometer 155H 07/16/18 18:21: Glucometer 128H 07/16/18 23:46: Glucometer 95 07/17/18 05:14: Glucometer 120H 07/17/18 11:52: Glucometer 142H 07/17/18 17:28: Glucometer 103 Assessment/Plan Assessment and Plan 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 Oral Thrush treated ESRD on Dialysis TIW N/V improved loose stools Increase Questran DM with hypoglymemia improved with adjustment in meds Hypokaelmia resolved Vocal cord paralysis NPO on Tube feeds Severe proptein malnutrition on Tiube feeds Sacral Pressure sore DR Drew cook HTN with Elevated SBP Renal to assess tomorrow at [facility] Plan Continue PT/OT/Wound care F/U with Renal as per above re Elevated SBP Increase Questran see orders Team Conference 07-19-18 Co-Morbidities that are continuing to impact the rehab process: (include details ) FISH MACIAS MD Jul 17, 2018 19:22
[2018-07-17] MEDS: ZOLPIDEM 5 MG (AMBIEN) TAB PEG SCH (20:07)
--- NOTE | 2018-07-17 20:07 | Wound Care Assessment ---
Wound Care Assessment Date Seen by Provider: Jul 17, 2018 Time Seen by Provider: 17:15 Chief Complaint Sacral pressure ulcer. HPI The patient is a 57 year old male diabetic with Stage 4 sacral pressure ulcer. It is stable with present dressing. He is scheduled to be discharged home later this week. The wound can be well managed in a home environment, and we will follow him as an out-patient. The wound is macerated. We will plan to continue silver alginate dressings bid. Past Medical History: Admits Diabetes Type II, Admits Heart Disease (S/P aortic valve replacement.), Admits Myocardial Infarction Smoking Status: Unknown if Ever Smoked Recreational Drug Use: No Alcohol Use: Denies Use Review of Systems Pulmonary: No Dyspnea Cardiovascular: No: Chest Pain Exam Vital Signs Date Time Temp Pulse Resp B/P (MAP) Pulse Ox O2 Delivery O2 Flow Rate FiO2 07/17/18 16:35 98.3 77 16 183/87 (119) 99 Room Air Capillary Refill : Less Than 3 Seconds General Appearance: no apparent distress Skin: other (sacral wound clean but macerated.) Results Laboratory Tests 07/16/18 23:46: Glucometer 95 07/17/18 05:14: Glucometer 120H 07/17/18 11:52: Glucometer 142H 07/17/18 17:28: Glucometer 103 Assessment/Plan/Dx 1. Pressure ulcer, sacral, stage 4, with apparent healing present. Currently macerated. 2. Diabetes mellitus, with ulcer of skin. 3. End stage renal disease, on dialysis. 4. Debility. Plan: Continue low air loss mattress, change silver alginate dressings BID, frequent repositioning, careful toilet. DARIO QUIROZ MD Jul 17, 2018 20:06
[2018-07-17] MEDS: MELATONIN 3 MG TABLET PEG SCH (20:08)
[2018-07-18] MEDS: PROMETHAZINE INJ 25 MG/ML (PHENERGAN) AMP IVP PRN (00:27)
[2018-07-18] MEDS: CATHETER FLUSH 10 ML SYR IV PRN (00:28)
[2018-07-18] MEDS: ALPRAZolam 0.5 MG (XANAX) TAB PEG PRN ×3 (01:42→22:10)
[2018-07-18 05:20] VITALS: BP 164/84
[2018-07-18] MEDS: CATHETER FLUSH 10 ML SYR IV SCH ×3 (06:00→22:09)
[2018-07-18] MEDS: inSUlin ASPART (NovoLOG) 1 UNIT/0.01 ML (CHARGE PER UNIT) SC SCH ×4 (06:00→18:16)
[2018-07-18] MEDS: predniSONE 10 MG TAB PEG SCH (06:38)
[2018-07-18] MEDS: ONDANSETRON 4 MG/2 ML (SDV) Z0FRAN IVP PRN (07:23)
[2018-07-18] MEDS: PANTOPRAZOLE 40 MG (PROTONIX) VIAL IV SCH ×2 (07:24→20:26)
[2018-07-18] MEDS: LACTOBACILLUS ACIDOPHILUS (PROBIOTIC) CAPSULE PEG SCH ×2 (07:26→20:26)
[2018-07-18] MEDS: buPROPion 100 MG (WELLBUTRIN) TAB PEG SCH ×2 (07:26→20:26)
[2018-07-18] MEDS: FOLIC ACID 1 MG TAB PEG SCH (07:27)
[2018-07-18] MEDS: CARVEDILOL 12.5 MG (COREG) TABLET PEG SCH ×2 (07:27→20:27)
[2018-07-18] MEDS: inSUlin DETERMIR 1 UNIT/0.01 ML (LEVEMIR) CHARGE PER UNIT SQ SCH (07:29)
[2018-07-18] MEDS: METOCLOPRAMIDE 10MG/10ML ORAL SOL(REGLAN) UDC PEG SCH ×2 (07:29→20:26)
--- NOTE | 2018-07-18 07:59 | Occupational Ther Daily Note ---
OT Current Status-Daily Note Subjective Pt lying in bed asleep, awoke to name. Nrsg stated that pt had a rough night due to nausea and diarrhea and did not get much sleep. Pt agrees to therapy. Mental Status/Objective Patient Orientation: Person, MR, Time, Situation Functional [place] Measure 0=Not Assessed/NA 4=Minimal Assistance 1=Total Assistance 5=Supervision or Setup 2=Maximal Assistance 6=Modified [place] 3=Moderate Assistance 7=Complete [place] Attachments: IV, PEG Tube, Other-See Comments (PICC) ADL-Treatment Pt was able to complete all ADL tasks prior to becoming nauseas. Functional [place] Measure 0=Not Assessed/NA 4=Minimal Assistance 1=Total Assistance 5=Supervision or Setup 2=Maximal Assistance 6=Modified [place] 3=Moderate Assistance 7=Complete IndependenceIRFPAI Quality Coding Scale 6 Independent with activity with or without an assistive device 5 Patient requires set up or clean up by helper. Patient completes activity by themselves 4 Supervision or touching assist (CGA). [place] provide cues , steadying assist 3 The helper provides less than half the effort to complete the activity 2 The helper provides more than half the effort to complete the activity 1 Dependent. The helper does all the effort to complete an activity 7 Patient refused to complete or attempt activity 9 The patient did not perform the activity before the current illness or injury 88 Not attempted due to Medical conditions or safety concerns Grooming (FIM): 6 (Mod I, Pt completes in sitting in front of sink. ) Oral Hygiene (QC): 6 Upper Body (FIM): 5 (Pt retrieved and transported clothing using FWW for stability. Assist to maneuver IV pole during retrieval of clothing. In sitting, pt completed UE dressing. ) Upper Body Dressing (QC): 5 Lower Body Dressing (FIM): 4 (Pt retrieved and transported clothing using FWW for stability. Assist to maneuver IV pole during retrieval of clothing. In sitting, pt completed LE dressing using AE to reach LE. Pt able to don/doff socks using AE. Pt able to don L shoe using AE. Assist with R shoes due to AFO. Pt able to don R shoe when AFO not on. ) Lower Body Dressing (QC): 3 On/Off Footwear (QC): 3 (Assist to don R shoe with AFO.) Transfers (B, C, W/C) (FIM): 6 (Pt goes from supine to EOB with HOB raised, using bed rails for leverage. Pt uses EOB and FWW for stability in sit to stand. ) Other Treatment Pt ambulated to therapy gym using FWW for stability. Pt completed 4 UE strengthening exercises/15x/3 sets using dowel mercedez with 2# wt increasing UE strength and activity tolerance needed for daily functional activity. Pt completed dynamic sitting task increasing hand eye coordination, UE strength, and balance needed for daily functional tasks. Pt ambulated back to room using FWW for stability. Pt took increased amount of time to complete ADLs and tasks due to feeling nauseas and needing rest breaks. After therapy, pt lying in bed with call light/phone within reach. All needs met in room. OT Short Term Goals Short Term Goals Time Frame: Jul 06, 2018 Grooming(FIM): 5 Bathing(FIM): 4 Upper Body Dressing(FIM): 4 Lower Body Dressing(FIM): 4 Toileting(FIM): 4 Transfers (B,C,W/C) (FIM): 5 (MET) Toilet/Commode Transfer(FIM): 5 Shower Transfer(FIM): 4 Additional Short Term Goals: 1-Demonstrate ADL Tasks, 2-Verbalize Understanding , 3-ImproveStrength/Camryn 1=Demonstrate adherence to instructed precautions during ADL tasks. 2=Patient will verbalize/demonstrate understanding of assistive devices/ modifications for ADL. 3=Patient will improve strength/tolerance for activity to enable patient to perform ADL's. OT Penitentiary Goals Penitentiary Goals Time Frame: Jul 20, 2018 Groomin (met) Oral Hygiene (QC): 4 Bathing(FIM): 5 (met) Shower/Bathe Self (QC): 4 Upper Body Dressing(FIM): 5 (met) Upper Body Dressing (QC): 4 Lower Body Dressing(FIM): 5 (ongoing) Lower Body Dressing (QC): 4 On/Off Footwear (QC): 4 Toileting(FIM): 5 (met) Toileting Hygiene (QC): 4 Transfers (B,C,W/C) (FIM): 6 (met) Toilet/Commode Transfer(FIM): 6 (met) Toilet/Commode Transfer (QC): 6 Shower Transfer(FIM): 5 (met) Additional Goals: 1-Demonstrate ADL Tasks, 2-Verbalize Understanding, 3- ImproveStrength/Camryn 1=Demonstrate adherence to instructed precautions during ADL tasks. 2=Patient will verbalize/demonstrate understanding of assistive devices/ modifications for ADL. 3=Patient will improve strength/tolerance for activity to enable patient to perform ADL's. OT Education/Plan Discharge Recommendations Plan/Recommendations: Continue POC Treatment Plan/Plan of Care Patient would benefit from OT for education, treatment and training to promote independence in ADL's, mobility, safety and/or upper extremity function for ADL' s. Plan of Care: ADL Retraining, Functional Mobility, Group Exercise/Act as Ind, UE Funct Exercise/Act Treatment Duration: Jul 20, 2018 Frequency: At least 5 of 7 days/Wk (IRF) Estimated Hrs Per Day: 1.5 hours per day Agreement: Yes Rehab Potential: Good Time/GCodes Start Time: 06:30 Stop Time: 08:00 Total Time Billed (hr/min): 90 Billed Treatment Time 1 visit- ADL 3 (45 min), EX 3 (45 min) VIPUL KIRK Jul 18, 2018 07:59
--- NOTE | 2018-07-18 08:14 | PM & R (SOAP) Progress Note ---
Subjective This was a face to face visit with the patient. Date Seen by Provider: Jul 18, 2018 Time Seen by Provider: 07:25 Subjective/Events-last exam Patient was seen in his room this AM Patient SBA for transfers Questran increased to QID to help form stools Date Identified: Jul 18, 2018 Time Identified: 07:00 Medication Intervention: Questran increased as per above Objective Physician Exam Last Set of Vital Signs Vital Signs Date Time Temp Pulse Resp B/P (MAP) Pulse Ox O2 Delivery O2 Flow Rate FiO2 07/18/18 05:20 97.8 75 18 164/84 (110) 99 Room Air Capillary Refill : Less Than 3 Seconds I&O Intake and Output 07/18/18 00:00 Intake Total 1980 ml Output Total 1100 ml Balance 880 ml Intake Oral 0 ml Tube Feeding 1320 ml Other 660 ml Output Urine Total 1100 ml # Voids 1 # Bowel Movements 6 # Emeses 2 General: Alert, Oriented X3, Cooperative, No Acute Distress, Other (Afebrile P =89 RR 16 BP 106/76 02 sats 100%% RA) HEENT: PERRLA, EOMI, Mucous Memb Moist/[place] Neck: Supple, No JVD, Other (Trach functioning) Lungs: Clear to Auscultation Heart: Regular Rate Abdomen: Normal Bowel Sounds, Soft, No Tenderness, Other (Peg tube in place HD catheter in left anterior chest) Extremities: No Edema Skin: Other (Stage 4 pressure sore sacrum) Neuro: Other (Generalized weakness Lower limbs >Upper and RT lower limb >left) Psych/Mental Status: Mental Status NL Results Lab Data Laboratory Tests 07/15/18 15:51: Glucometer 106 07/15/18 18:18: Glucometer 113H 07/15/18 23:57: Glucometer 86 07/16/18 05:08: Glucometer 139H 07/16/18 12:15: Glucometer 155H 07/16/18 18:21: Glucometer 128H 07/16/18 23:46: Glucometer 95 07/17/18 05:14: Glucometer 120H 07/17/18 11:52: Glucometer 142H 07/17/18 17:28: Glucometer 103 07/18/18 00:17: Glucometer 101 07/18/18 06:37: Glucometer 128H Assessment/Plan Assessment and Plan 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 Oral thrush treated ESRD on Dialysis TIW N/V resolved Loose stolls questran increased DM with hypoglycemia improved with adjustment in Insulin Hypokalemia resolved Vocal cord paralysis NPO on Tube feeds Severe protein malnutrition on Tube feeds Sacral pressure sore DR Russell following HTN with elevated SBP Renal to assees today at Dialysis-May be best SBP that can be accomplished for this patient Plan Continue PT/OT/Wound care F/U with REnal as per above Team Conference tomorrow Probable discharge soon Co-Morbidities that are continuing to impact the rehab process: (include details ) FISH MACIAS MD Jul 18, 2018 08:13
--- NOTE | 2018-07-18 08:58 | Physical Therapy Daily Note ---
PT Daily Note-Current Subjective pt in bed pre tx, agrees to PT, no pain to report, pt states he is very tired from getting little sleep last night Appearance pt in bed post tx w/ phone, call light, tray, all needs met Mental Status Patient Orientation: Person, Place, Time Attachments: PEG Tube Transfers Functional [place] Measure 0=Not Assessed/NA 4=Minimal Assistance 1=Total Assistance 5=Supervision or Setup 2=Maximal Assistance 6=Modified [place] 3=Moderate Assistance 7=Complete IndependenceIRFPAI Quality Coding Scale 6 Independent with activity with or without an assistive device 5 Patient requires set up or clean up by helper. Patient completes activity by themselves 4 Supervision or touching assist (CGA). [place] provide cues , steadying assist 3 The helper provides less than half the effort to complete the activity 2 The helper provides more than half the effort to complete the activity 1 Dependent. The helper does all the effort to complete an activity 7 Patient refused to complete or attempt activity 9 The patient did not perform the activity before the current illness or injury 88 Not attempted due to Medical conditions or safety concerns Transfers (B, C, W/C) (FIM): 5 Scootin Rollin Supine to/from Sit: 6 Sit to/from Stand: 5 supine<->sit mod I, sit->stand SBA Weight Bearing Right Lower Extremity: Right Full Weight Bearing Left Lower Extremity: Left Full Weight Bearing Gait Training Does the Patient Walk?: Yes Gait (FIM): 5 Distance: 150',100' Gait Level of Assist: 5 Gait Persons Needed: 1 Gait Assistive Device: FWW pt ambulates to/from gym w/ FWW, SBA, pt attempted to use SPC, but was too tired /unsteady to continue safely, gait is steady, but slow w/ flexed knees and pt demonstrates bilaterally toe drag, which was not present previously, likely due to fatigue Exercises Seated Therapy Exercises: Long arc quads, Hip flexion Seated Reps: 40 Standing: Hamstring curls, Heel/toe raises, 3 way Ex=Flex, Abd, Ext Standing Reps: 10 NuStep Minutes: 15 NuStep Workload: 4 Treatments gait training, functional strengthening, endurance training Assessment Current Status: Fair Progress pt very fatigued today, took therapy very slow w/ decreased activities and long rest breaks PT Short Term Goals Short Term Goals Time Frame: Jun 29, 2018 Transfers (B,C,W/C) (FIM): 5 (MET) Gait (FIM): 5 (MET) Distance (FIM): 3=150 ft Gait Distance Comment: 200' Gait Level of Assist: 5 Gait Assistive Device: FWW Wheelchair Distance: 250',150'x2 PT Fpc Goals Fpc Goals PT Workday Director Goals Time Frame: Jul 13, 2018 Transfers (B,C,W/C) (FIM): 6 Sit to Lying (QC): 6 Lying-Sitting on Side/Bed(QC): 6 Sit to Stand (QC): 6 Rollin Roll Left to Right (QC): 6 Chair/Fnu-yr-Rhzdr Xfer(QC): 6 Car Transfer (QC): 6 Does the Patient Walk: Yes Gait (FIM): 6 Distance: SEE PT GOALS Walk 10 feet (QC): 6 Walk 10ft-Uneven Surface(QC): 6 Walk 50ft with 2 Turns (QC): 6 Walk 150 ft (QC): 6 Gait Level of Assist: 6 Gait Assistive Device: FWW Stairs (FIM): 5 (household exception) # of Steps: 4 1 Step (curb) (QC): 6 4 Steps (QC): 6 12 Steps (QC): 0 Picking up an Object (QC): 4 PT Plan Problem List Problem List: Activity Tolerance, Functional Strength, Safety, Balance, Gait, Transfer, Bed Mobility Treatment/Plan Treatment Plan: Continue Plan of Care Treatment Plan: Bed Mobility, Concurrent Therapy, Education, Functional Activity Camryn, Functional Strength, Group Therapy, Gait, Safety, Therapeutic Exercise, Transfers Treatment Duration: Jul 13, 2018 Frequency: Modified Program (IRF) (due to dialysis) Estimated Hrs Per Day: 1.5 hours per day Patient and/or Family Agrees t: Yes Safety Risks/Education Patient Education: Gait Training, Transfer Techniques, Correct Positioning, Safety Issues Teaching Recipient: Patient Teaching Methods: Demonstration, Discussion Response to Teaching: Reinforcement Needed Time/GCodes Time In: 0800 Time Out: 0900 Total Billed Treatment Time: 60 Total Billed Treatment 1 visit GT 20' EX 40' DONNELL MA PT Jul 18, 2018 08:58
[2018-07-18] MEDS: CHOLESTYRAMINE 4 GM (QUESTRAN LITE, PREVALITE) PKT PEG SCH ×4 (09:10→23:15)
[2018-07-18 09:14] VITALS: BP 161/88
--- NOTE | 2018-07-18 10:09 | Physical Therapy Daily Note ---
PT Daily Note-Current Subjective Ready to go to dialysis. no complaints. Transfers Functional [place] Measure 0=Not Assessed/NA 4=Minimal Assistance 1=Total Assistance 5=Supervision or Setup 2=Maximal Assistance 6=Modified [place] 3=Moderate Assistance 7=Complete IndependenceIRFPAI Quality Coding Scale 6 Independent with activity with or without an assistive device 5 Patient requires set up or clean up by helper. Patient completes activity by themselves 4 Supervision or touching assist (CGA). [place] provide cues , steadying assist 3 The helper provides less than half the effort to complete the activity 2 The helper provides more than half the effort to complete the activity 1 Dependent. The helper does all the effort to complete an activity 7 Patient refused to complete or attempt activity 9 The patient did not perform the activity before the current illness or injury 88 Not attempted due to Medical conditions or safety concerns Weight Bearing Right Lower Extremity: Right Full Weight Bearing Left Lower Extremity: Left Full Weight Bearing Treatments Pt transferred sup to sit EOB with SBA and skilled cues for sequencing and safety. Transfer bed to wheelchair with CGA. Pt taken downstairs. Transfer wc to car with CGA without using AD with cues for safety and sequencing. Pt able to lift both feet into car but with difficulty. Assessment Current Status: Good Progress Requires intermittent cues to sequence or initiate task. PT Short Term Goals Short Term Goals Time Frame: Jun 29, 2018 Transfers (B,C,W/C) (FIM): 5 (MET) Gait (FIM): 5 (MET) Distance (FIM): 3=150 ft Gait Distance Comment: 200' Gait Level of Assist: 5 Gait Assistive Device: FWW Wheelchair Distance: 250',150'x2 PT Compliance Auditor Goals Compliance Auditor Goals PT Senior Living Goals Time Frame: Jul 13, 2018 Transfers (B,C,W/C) (FIM): 6 Sit to Lying (QC): 6 Lying-Sitting on Side/Bed(QC): 6 Sit to Stand (QC): 6 Rollin Roll Left to Right (QC): 6 Chair/Bop-mw-[place] Xfer(QC): 6 Car Transfer (QC): 6 Does the Patient Walk: Yes Gait (FIM): 6 Distance: SEE PT GOALS Walk 10 feet (QC): 6 Walk 10ft-Uneven Surface(QC): 6 Walk 50ft with 2 Turns (QC): 6 Walk 150 ft (QC): 6 Gait Level of Assist: 6 Gait Assistive Device: FWW Stairs (FIM): 5 (household exception) # of Steps: 4 1 Step (curb) (QC): 6 4 Steps (QC): 6 12 Steps (QC): 0 Picking up an Object (QC): 4 PT Plan Problem List Problem List: Activity Tolerance, Functional Strength, Safety, Balance, Gait, Transfer Treatment/Plan Treatment Plan: Continue Plan of Care Treatment Plan: Bed Mobility, Concurrent Therapy, Education, Functional Activity [place], Functional Strength, Group Therapy, Gait, Safety, Therapeutic Exercise, Transfers Treatment Duration: Jul 13, 2018 Frequency: Modified Program (IRF) (due to dialysis) Estimated Hrs Per Day: 1.5 hours per day Patient and/or Family Agrees t: Yes Safety Risks/Education Patient Education: Transfer Techniques, Safety Issues Teaching Recipient: Patient Teaching Methods: Demonstration, Discussion Response to Teaching: Reinforcement Needed Time/GCodes Time In: 945 Time Out: 1000 Total Billed Treatment Time: 15 Total Billed Treatment visit FA 15 VIPUL SHI PT Jul 18, 2018 10:09
--- NOTE | 2018-07-18 10:20 | Physical Therapy Rehab Re-Cert ---
PT Re-Certification Form Physical Therapy Treatment Plan: Continue Plan of Care Bed Mobility, Concurrent Therapy, Education, Functional Activity [place], Functional Strength, Group Therapy, Gait, Safety, Therapeutic Exercise, Transfers Patient has been making progress with mobility and strength. He can now perform bed mobility with mod I and transfers and ambulation with SBA using a rolling walker. Patient still has weakness in both lower extremities. He would benefit from continued strengthening and mobility training to continue to improve functional mobility and independence at home. Treatment Duration: 4 weeks Frequency: Modified Program (IRF) (due to dialysis) Estimated Hrs Per Day: 1.5 hours per day Patient and/or Family Agrees t: Yes Rehab Potential: Fair PT Short Term Goals Short Term Goals Time Frame: Jun 29, 2018 Transfers (B,C,W/C) (FIM): 5 (MET) Gait (FIM): 5 (MET) Distance (FIM): 3=150 ft Gait Distance Comment: 200' Gait Level of Assist: 5 Gait Assistive Device: FWW Wheelchair Distance: 250',150'x2 PT Cash Teller Goals Cash Teller Goals PT Cash Teller Goals Time Frame: Jul 13, 2018 Transfers (B,C,W/C) (FIM): 6 Gait (FIM): 6 Distance: SEE PT GOALS Gait Level of Assist: 6 Gait Assistive Device: FWW Stairs (FIM): 5 (household exception) # of Steps: 4 DONNELL MA PT Jul 18, 2018 10:20
[2018-07-18] MEDS: ENOXAPARIN 30 MG/0.3 ML (LOVENOX) SYR SC SCH (15:18)
[2018-07-18 15:22] VITALS: BP 132/86
[2018-07-18 17:12] VITALS: BP 121/73
[2018-07-18] MEDS: MELATONIN 3 MG TABLET PEG SCH (20:26)
[2018-07-18] MEDS: ZOLPIDEM 5 MG (AMBIEN) TAB PEG SCH (20:27)
[2018-07-19 06:00] VITALS: BP 115/72
[2018-07-19] MEDS: inSUlin ASPART (NovoLOG) 1 UNIT/0.01 ML (CHARGE PER UNIT) SC SCH ×2 (06:00→18:02)
[2018-07-19] MEDS: CATHETER FLUSH 10 ML SYR IV SCH ×3 (06:41→21:12)
[2018-07-19] MEDS: predniSONE 10 MG TAB PEG SCH (06:47)
--- NOTE | 2018-07-19 07:58 | Occupational Ther Daily Note ---
OT Current Status-Daily Note Subjective Pt lying in bed sleeping, awoke to name. No c/o pain. Pt agrees to therapy. Mental Status/Objective Patient Orientation: Person, Place, Time, Situation Functional [place] Measure 0=Not Assessed/NA 4=Minimal Assistance 1=Total Assistance 5=Supervision or Setup 2=Maximal Assistance 6=Modified [place] 3=Moderate Assistance 7=Complete [place] Attachments: IV, PEG Tube, Other-See Comments (PICC) ADL-Treatment Functional [place] Measure 0=Not Assessed/NA 4=Minimal Assistance 1=Total Assistance 5=Supervision or Setup 2=Maximal Assistance 6=Modified [place] 3=Moderate Assistance 7=Complete IndependenceIRFPAI Quality Coding Scale 6 Independent with activity with or without an assistive device 5 Patient requires set up or clean up by helper. Patient completes activity by themselves 4 Supervision or touching assist (CGA). [place] provide cues , steadying assist 3 The helper provides less than half the effort to complete the activity 2 The helper provides more than half the effort to complete the activity 1 Dependent. The helper does all the effort to complete an activity 7 Patient refused to complete or attempt activity 9 The patient did not perform the activity before the current illness or injury 88 Not attempted due to Medical conditions or safety concerns Grooming (FIM): 6 (Mod I, pt completes in sitting position in front of sink. ) Oral Hygiene (QC): 6 Bathing (FIM): 6 (Mod I, pt completes using hand held shower, long handled sponge, shower bench, and grabbars for stability. ) Bathing Location: L Arm, R Arm, L Upper Leg, R Upper Leg, L Lower Leg ( including foot), R Lower Leg (including foot), Chest, Abdomen, Buttocks, Perineal Area Shower/Bathe Self (QC): 6 Upper Body (FIM): 5 (Pt retrieved and transported clothing using FWW for stability. Assist to maneuver IV pole during retrieval of clothing. In sitting, pt completed UE dressing.) Upper Body Dressing (QC): 5 Lower Body Dressing (FIM): 4 (Pt retrieved and transported clothing using FWW for stability. Assist to maneuver IV pole during retrieval of clothing. In sitting, pt completed LE dressing using AE to reach LE. Pt able to don/doff socks using AE. Pt able to don L shoe using AE. Assist with R shoes due to AFO. Pt able to don R shoe when AFO not on.) Lower Body Dressing (QC): 3 On/Off Footwear (QC): 3 Toileting (FIM): 0 (Due to incontinent bowel episode, unable to score pt. Pt ambulated to toilet then pt able to cleanse self in sitting using grabbars for stability. Pt able to doff clothing in sitting. ) Transfers (B, C, W/C) (FIM): 6 (Mod I, Pt able to go from supine to EOB with HOB raised. Pt use EOB and FWW for stability in sit to stand. ) Toilet/Commode Transfer (FIM): 6 (Mod I, pt uses grabbars and FWW for stability.) Toilet Transfer (QC): 6 Shower Transfer(FIM): 6 (Mod I, pt uses shower bench, FWW and grabbars for stability. ) Pt takes increased time to complete ADLs. [place] TEACHER ASSISTANT/s assist in tubing and IV pole manipulation throughout session. After therapy, pt lying in bed with call light/ phone within reach. All needs met in room. OT Short Term Goals Short Term Goals Time Frame: Jul 06, 2018 Grooming(FIM): 5 Bathing(FIM): 4 Upper Body Dressing(FIM): 4 Lower Body Dressing(FIM): 4 Toileting(FIM): 4 Transfers (B,C,W/C) (FIM): 5 (MET) Toilet/Commode Transfer(FIM): 5 Shower Transfer(FIM): 4 Additional Short Term Goals: 1-Demonstrate ADL Tasks, 2-Verbalize Understanding , 3-ImproveStrength/[place] 1=Demonstrate adherence to instructed precautions during ADL tasks. 2=Patient will verbalize/demonstrate understanding of assistive devices/ modifications for ADL. 3=Patient will improve strength/tolerance for activity to enable patient to perform ADL's. OT Equipment Man Goals Custodial Goals Time Frame: Jul 20, 2018 Groomin (met) Oral Hygiene (QC): 4 Bathing(FIM): 5 (met) Shower/Bathe Self (QC): 4 Upper Body Dressing(FIM): 5 (met) Upper Body Dressing (QC): 4 Lower Body Dressing(FIM): 5 (ongoing) Lower Body Dressing (QC): 4 On/Off Footwear (QC): 4 Toileting(FIM): 5 (met) Toileting Hygiene (QC): 4 Transfers (B,C,W/C) (FIM): 6 (met) Toilet/Commode Transfer(FIM): 6 (met) Toilet/Commode Transfer (QC): 6 Shower Transfer(FIM): 5 (met) Additional Goals: 1-Demonstrate ADL Tasks, 2-Verbalize Understanding, 3- ImproveStrength/Cmaryn 1=Demonstrate adherence to instructed precautions during ADL tasks. 2=Patient will verbalize/demonstrate understanding of assistive devices/ modifications for ADL. 3=Patient will improve strength/tolerance for activity to enable patient to perform ADL's. OT Education/Plan Discharge Recommendations Plan/Recommendations: Continue POC Treatment Plan/Plan of Care Patient would benefit from OT for education, treatment and training to promote independence in ADL's, mobility, safety and/or upper extremity function for ADL' s. Plan of Care: ADL Retraining, Functional Mobility, Group Exercise/Act as Ind, UE Funct Exercise/Act Treatment Duration: Jul 20, 2018 Frequency: At least 5 of 7 days/Wk (IRF) Estimated Hrs Per Day: 1.5 hours per day Agreement: Yes Rehab Potential: Fair Time/GCodes Start Time: 07:00 Stop Time: 08:00 Total Time Billed (hr/min): 60 Billed Treatment Time 1 visit- ADL 4 (60 min) VIPUL KIRK Jul 19, 2018 07:58
[2018-07-19] MEDS: CARVEDILOL 12.5 MG (COREG) TABLET PEG SCH ×2 (08:29→21:13)
[2018-07-19] MEDS: ONDANSETRON 4 MG/2 ML (SDV) Z0FRAN IVP PRN (08:29)
[2018-07-19] MEDS: FOLIC ACID 1 MG TAB PEG SCH (08:29)
[2018-07-19] MEDS: METOCLOPRAMIDE 10MG/10ML ORAL SOL(REGLAN) UDC PEG SCH ×2 (08:29→21:12)
[2018-07-19] MEDS: PANTOPRAZOLE 40 MG (PROTONIX) VIAL IV SCH ×2 (08:29→21:12)
[2018-07-19] MEDS: ALPRAZolam 0.5 MG (XANAX) TAB PEG PRN ×2 (08:29→21:12)
[2018-07-19] MEDS: CHOLESTYRAMINE 4 GM (QUESTRAN LITE, PREVALITE) PKT PEG SCH ×4 (08:30→21:11)
[2018-07-19] MEDS: buPROPion 100 MG (WELLBUTRIN) TAB PEG SCH ×2 (08:30→21:12)
[2018-07-19] MEDS: LACTOBACILLUS ACIDOPHILUS (PROBIOTIC) CAPSULE PEG SCH ×2 (08:30→21:12)
[2018-07-19] MEDS: inSUlin DETERMIR 1 UNIT/0.01 ML (LEVEMIR) CHARGE PER UNIT SQ SCH (08:31)
--- NOTE | 2018-07-19 08:37 | PM & R (SOAP) Progress Note ---
Subjective This was a face to face visit with the patient. Date Seen by Provider: Jul 19, 2018 Time Seen by Provider: 08:00 Subjective/Events-last exam Patient was seen in his room this AM Patient SBA for transfers and Gait with WW N/V and Loose stools improved Endurance and strength improving Date Identified: Jul 19, 2018 Time Identified: 07:30 Medication Intervention: Accuccccccccccccheks staaable Accucheks decreased to BID Objective Physician Exam Last Set of Vital Signs Vital Signs Date Time Temp Pulse Resp B/P (MAP) Pulse Ox O2 Delivery O2 Flow Rate FiO2 07/19/18 06:00 98.0 83 16 115/72 (86) 99 Room Air Capillary Refill : Less Than 3 Seconds I&O Intake and Output 07/19/18 00:00 Intake Total 1945 ml Output Total 800 ml Balance 1145 ml Intake Oral 0 ml Tube Feeding 1320 ml Other 625 ml Output Urine Total 800 ml # Voids 2 # Bowel Movements 2 # Emeses 1 General: Alert, Oriented X3, Cooperative, No Acute Distress, Other (Afebrile P =89 RR 16 BP 106/76 02 sats 100%% RA) HEENT: PERRLA, EOMI, Mucous Memb Moist/Burnt [place]ck: Supple, No JVD, Other (Trach functioning) Lungs: Clear to Auscultation Heart: Regular Rate Abdomen: Normal Bowel Sounds, Soft, No Tenderness, Other (Peg tube in place HD catheter in left anterior chest) Extremities: No Edema Skin: Other (Stage 4 pressure sore sacrum) Neuro: Other (Generalized weakness Lower limbs >Upper and RT lower limb >left) Psych/Mental Status: Mental Status NL Results Lab Data Laboratory Tests 07/16/18 12:15: Glucometer 155H 07/16/18 18:21: Glucometer 128H 07/16/18 23:46: Glucometer 95 07/17/18 05:14: Glucometer 120H 07/17/18 11:52: Glucometer 142H 07/17/18 17:28: Glucometer 103 07/18/18 00:17: Glucometer 101 07/18/18 06:37: Glucometer 128H 07/18/18 14:47: Glucometer 94 07/18/18 18:15: Glucometer 111H 07/19/18 06:05: Glucometer 134H Assessment/Plan Assessment and Plan 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
--- NOTE | 2018-07-19 10:44 | Physical Therapy Daily Note ---
PT Daily Note-Current Subjective Pt. states he wants arrangements made to go home on Tue. Hopes to have HC PT and maybe HC dialysis. Pain Numeric Pain Scale: 0-No Pain Appearance somber, flat affect Mental Status Patient Orientation: Normal For Age Attachments: PEG Tube, IV Transfers Functional [place] Measure 0=Not Assessed/NA 4=Minimal Assistance 1=Total Assistance 5=Supervision or Setup 2=Maximal Assistance 6=Modified [place] 3=Moderate Assistance 7=Complete IndependenceIRFPAI Quality Coding Scale 6 Independent with activity with or without an assistive device 5 Patient requires set up or clean up by helper. Patient completes activity by themselves 4 Supervision or touching assist (CGA). [place] provide cues , steadying assist 3 The helper provides less than half the effort to complete the activity 2 The helper provides more than half the effort to complete the activity 1 Dependent. The helper does all the effort to complete an activity 7 Patient refused to complete or attempt activity 9 The patient did not perform the activity before the current illness or injury 88 Not attempted due to Medical conditions or safety concerns Transfers (B, C, W/C) (FIM): 5 Scootin Rollin Supine to/from Sit: 5 Sit to/from Stand: 5 (higher surface is helpful) Weight Bearing Right Lower Extremity: Right Full Weight Bearing Left Lower Extremity: Left Full Weight Bearing Gait Training Does the Patient Walk?: Yes Gait (FIM): 5 Distance (FIM): 3=150 ft (2256x2, 50) Gait Level of Assist: 5 Gait Persons Needed: 1 Gait Assistive Device: FWW assist for IV, instruction and demonstration for safe gait and safe HELGA Exercises Supine Ex: Bridging, Ankle pumps (assist HC stretches), Quad Set, Rolling, Glut sets, Lower trunk rotation, Heel Slides, Short Arc Quads, Scooting, Straight leg raise, Hip abd/add Supine Reps: 10 (x2) NuStep Minutes: 12 NuStep Workload: 2 (6min without arms for more LE work) Treatments leg presses on NUstep x 12 Assessment Current Status: Fair Progress fatigue and nausea limit function PT Short Term Goals Short Term Goals Time Frame: Jun 29, 2018 Transfers (B,C,W/C) (FIM): 5 (MET) Gait (FIM): 5 (MET) Distance (FIM): 3=150 ft Gait Distance Comment: 200' Gait Level of Assist: 5 Gait Assistive Device: FWW Wheelchair Distance: 250',150'x2 PT Personal Banking Assistant Goals Personal Banking Assistant Goals PT Personal Banking Assistant Goals Time Frame: Jul 13, 2018 Transfers (B,C,W/C) (FIM): 6 Sit to Lying (QC): 6 Lying-Sitting on Side/Bed(QC): 6 Sit to Stand (QC): 6 Rollin Roll Left to Right (QC): 6 Chair/Pbp-ij-Lamgr Xfer(QC): 6 Car Transfer (QC): 6 Does the Patient Walk: Yes Gait (FIM): 6 Distance: SEE PT GOALS Walk 10 feet (QC): 6 Walk 10ft-Uneven Surface(QC): 6 Walk 50ft with 2 Turns (QC): 6 Walk 150 ft (QC): 6 Gait Level of Assist: 6 Gait Assistive Device: FWW Stairs (FIM): 5 (household exception) # of Steps: 4 1 Step (curb) (QC): 6 4 Steps (QC): 6 12 Steps (QC): 0 Picking up an Object (QC): 4 PT Plan Treatment/Plan Treatment Plan: Continue Plan of Care Treatment Plan: Bed Mobility, Concurrent Therapy, Education, Functional Activity Camryn, Functional Strength, Group Therapy, Gait, Safety, Therapeutic Exercise, Transfers Treatment Duration: Jul 13, 2018 Frequency: Modified Program (IRF) (due to dialysis) Estimated Hrs Per Day: 1.5 hours per day Patient and/or Family Agrees t: Yes Safety Risks/Education Patient Education: Gait Training, Transfer Techniques, Correct Positioning, Disease Process, Safety Issues Teaching Recipient: Patient Teaching Methods: Demonstration, Discussion Response to Teaching: Verbalize Understanding, Return Demonstration, Reinforcement Needed Time/GCodes Time In: 930 Time Out: 1030 Total Billed Treatment Time: 60 Total Billed Treatment 1,GT15m,FA15m,EX30m G Codes Necessary: DRAYL Cain EXTERMINATOR HELPER TERMITE Jul 19, 2018 10:44
[2018-07-19] MEDS: SCOPOLAMINE 1.5 MG (TRANSDERM-SCOP) PATCH TOP SCH (11:27)
--- NOTE | 2018-07-19 11:47 | Occupational Ther Daily Note ---
OT Current Status-Daily Note Subjective Pt alert, lying in bed. No c/o pain. Pt agrees to therapy. Mental Status/Objective Patient Orientation: Person, Place, Time, Situation Functional [place] Measure 0=Not Assessed/NA 4=Minimal Assistance 1=Total Assistance 5=Supervision or Setup 2=Maximal Assistance 6=Modified [place] 3=Moderate Assistance 7=Complete [place] Attachments: IV, PEG Tube, Other-See Comments ADL-Treatment Functional [place] Measure 0=Not Assessed/NA 4=Minimal Assistance 1=Total Assistance 5=Supervision or Setup 2=Maximal Assistance 6=Modified [place] 3=Moderate Assistance 7=Complete IndependenceIRFPAI Quality Coding Scale 6 Independent with activity with or without an assistive device 5 Patient requires set up or clean up by helper. Patient completes activity by themselves 4 Supervision or touching assist (CGA). [place] provide cues , steadying assist 3 The helper provides less than half the effort to complete the activity 2 The helper provides more than half the effort to complete the activity 1 Dependent. The helper does all the effort to complete an activity 7 Patient refused to complete or attempt activity 9 The patient did not perform the activity before the current illness or injury 88 Not attempted due to Medical conditions or safety concerns Transfers (B, C, W/C) (FIM): 6 (HOB raised, pt able to go from supine to EOB. Pt uses EOB and FWW for stability in sit to stand. ) Other Treatment Pt ambulated to therapy gym using FWW for stability. Pt completed resistive peg task bilaterally with 1# wts attached increasing UE strength and fine motor skills needed for daily functional tasks. Pt completed 4 UE strengthening exercises/15x/3 sets using a dowel [place] with 2# wt increasing activity tolerance and UE strength needed for transfers and daily functional tasks. Pt takes increased amount of time to complete tasks. Pt ambulated to room using FWW for stability. BLANCO/s assist with IV pole and tubing manipulation throughout session. After therapy, pt lying in bed with call light/phone within reach. All needs met in room. OT Short Term Goals Short Term Goals Time Frame: Jul 06, 2018 Grooming(FIM): 5 Bathing(FIM): 4 Upper Body Dressing(FIM): 4 Lower Body Dressing(FIM): 4 Toileting(FIM): 4 Transfers (B,C,W/C) (FIM): 5 (MET) Toilet/Commode Transfer(FIM): 5 Shower Transfer(FIM): 4 Additional Short Term Goals: 1-Demonstrate ADL Tasks, 2-Verbalize Understanding , 3-ImproveStrength/Camryn 1=Demonstrate adherence to instructed precautions during ADL tasks. 2=Patient will verbalize/demonstrate understanding of assistive devices/ modifications for ADL. 3=Patient will improve strength/tolerance for activity to enable patient to perform ADL's. OT Resource Conservationist Goals Senior Living Goals Time Frame: Jul 20, 2018 Groomin (met) Oral Hygiene (QC): 4 Bathing(FIM): 5 (met) Shower/Bathe Self (QC): 4 Upper Body Dressing(FIM): 5 (met) Upper Body Dressing (QC): 4 Lower Body Dressing(FIM): 5 (ongoing) Lower Body Dressing (QC): 4 On/Off Footwear (QC): 4 Toileting(FIM): 5 (met) Toileting Hygiene (QC): 4 Transfers (B,C,W/C) (FIM): 6 (met) Toilet/Commode Transfer(FIM): 6 (met) Toilet/Commode Transfer (QC): 6 Shower Transfer(FIM): 5 (met) Additional Goals: 1-Demonstrate ADL Tasks, 2-Verbalize Understanding, 3- ImproveStrength/Camryn 1=Demonstrate adherence to instructed precautions during ADL tasks. 2=Patient will verbalize/demonstrate understanding of assistive devices/ modifications for ADL. 3=Patient will improve strength/tolerance for activity to enable patient to perform ADL's. OT Education/Plan Discharge Recommendations Plan/Recommendations: Continue POC Treatment Plan/Plan of Care Patient would benefit from OT for education, treatment and training to promote independence in ADL's, mobility, safety and/or upper extremity function for ADL' s. Plan of Care: ADL Retraining, Functional Mobility, Group Exercise/Act as Ind, UE Funct Exercise/Act Treatment Duration: Jul 20, 2018 Frequency: At least 5 of 7 days/Wk (IRF) Estimated Hrs Per Day: 1.5 hours per day Agreement: Yes Rehab Potential: Fair Time/GCodes Start Time: 11:00 Stop Time: 11:30 Total Time Billed (hr/min): 30 Billed Treatment Time 1 visit- EX 2 (30 min) VIPUL KIRK Jul 19, 2018 11:47
--- NOTE | 2018-07-19 13:04 | Physical Therapy Daily Note ---
PT Daily Note-Current Subjective Pt. agrees to Rx. Asks if he can have the PEG tube disconnected to go up down steps during rx. Nurse agrees. Pain Numeric Pain Scale: 0-No Pain Mental Status Patient Orientation: Normal For Age Attachments: Other-See Comments (AFO R foot) Transfers Functional [place] Measure 0=Not Assessed/NA 4=Minimal Assistance 1=Total Assistance 5=Supervision or Setup 2=Maximal Assistance 6=Modified [place] 3=Moderate Assistance 7=Complete IndependenceIRFPAI Quality Coding Scale 6 Independent with activity with or without an assistive device 5 Patient requires set up or clean up by helper. Patient completes activity by themselves 4 Supervision or touching assist (CGA). [place] provide cues , steadying assist 3 The helper provides less than half the effort to complete the activity 2 The helper provides more than half the effort to complete the activity 1 Dependent. The helper does all the effort to complete an activity 7 Patient refused to complete or attempt activity 9 The patient did not perform the activity before the current illness or injury 88 Not attempted due to Medical conditions or safety concerns all sit to stands SBA to Mod I, sit to sup SBA to Mod I Weight Bearing Right Lower Extremity: Right Full Weight Bearing Left Lower Extremity: Left Full Weight Bearing Gait Training Gait Assistive Device: FWW 75x2, 50x1 no LOB, slow, flexed at trunk over FWW Stair Training Stair Training: Handrails/: 2 handrails Stairs (FIM): 5 #of Steps: 4 Stairs: Pattern: Step to Level of Assist: 5 household exception Assessment Current Status: Good Progress pt. makes statements indicating he is ready for home and tired of the restrictions on him PT Short Term Goals Short Term Goals Time Frame: Jun 29, 2018 Transfers (B,C,W/C) (FIM): 5 (MET) Gait (FIM): 5 (MET) Distance (FIM): 3=150 ft Gait Distance Comment: 200' Gait Level of Assist: 5 Gait Assistive Device: FWW Wheelchair Distance: 250',150'x2 PT Stereoplotter Operator Goals Mcfp Goals PT Stereoplotter Operator Goals Time Frame: Jul 13, 2018 Transfers (B,C,W/C) (FIM): 6 Sit to Lying (QC): 6 Lying-Sitting on Side/Bed(QC): 6 Sit to Stand (QC): 6 Rollin Roll Left to Right (QC): 6 Chair/Vtl-mt-[place] Xfer(QC): 6 Car Transfer (QC): 6 Does the Patient Walk: Yes Gait (FIM): 6 Distance: SEE PT GOALS Walk 10 feet (QC): 6 Walk 10ft-Uneven Surface(QC): 6 Walk 50ft with 2 Turns (QC): 6 Walk 150 ft (QC): 6 Gait Level of Assist: 6 Gait Assistive Device: FWW Stairs (FIM): 5 (household exception) # of Steps: 4 1 Step (curb) (QC): 6 4 Steps (QC): 6 12 Steps (QC): 0 Picking up an Object (QC): 4 PT Plan Treatment/Plan Treatment Plan: Continue Plan of Care Treatment Plan: Bed Mobility, Concurrent Therapy, Education, Functional Activity Camryn, Functional Strength, Group Therapy, Gait, Safety, Therapeutic Exercise, Transfers Treatment Duration: Jul 13, 2018 Frequency: Modified Program (IRF) (due to dialysis) Estimated Hrs Per Day: 1.5 hours per day Patient and/or Family Agrees t: Yes Safety Risks/Education Patient Education: Gait Training, Transfer Techniques, Steps, Correct Positioning, Disease Process, Safety Issues Teaching Recipient: Patient Teaching Methods: Demonstration, Discussion Response to Teaching: Verbalize Understanding, Return Demonstration, Reinforcement Needed Time/GCodes Time In: 1230 Time Out: 1300 Total Billed Treatment Time: 30 Total Billed Treatment 1,FA15m,GT15m G Codes Necessary: DARYL Cain PTA Jul 19, 2018 13:04
[2018-07-19] MEDS: ENOXAPARIN 30 MG/0.3 ML (LOVENOX) SYR SC SCH (17:26)
[2018-07-19 17:56] VITALS: BP 156/90
[2018-07-19] MEDS: MELATONIN 3 MG TABLET PEG SCH (21:12)
[2018-07-19] MEDS: ZOLPIDEM 5 MG (AMBIEN) TAB PEG SCH (21:12)
[2018-07-20 05:18] VITALS: BP 160/77
[2018-07-20] MEDS: inSUlin ASPART (NovoLOG) 1 UNIT/0.01 ML (CHARGE PER UNIT) SC SCH ×2 (05:39→19:03)
[2018-07-20] MEDS: predniSONE 10 MG TAB PEG SCH (06:12)
[2018-07-20] MEDS: CATHETER FLUSH 10 ML SYR IV SCH ×3 (06:20→20:33)
--- NOTE | 2018-07-20 07:35 | Occupational Ther Daily Note ---
OT Current Status-Daily Note Subjective Pt lying in bed asleep, awoke to name. No c/o pain. Pt agrees to therapy. Mental Status/Objective Patient Orientation: Person, Place, Time, Situation Functional [place] Measure 0=Not Assessed/NA 4=Minimal Assistance 1=Total Assistance 5=Supervision or Setup 2=Maximal Assistance 6=Modified [place] 3=Moderate Assistance 7=Complete [place] Attachments: IV, PEG Tube, Other-See Comments (PICC) ADL-Treatment Functional [place] Measure 0=Not Assessed/NA 4=Minimal Assistance 1=Total Assistance 5=Supervision or Setup 2=Maximal Assistance 6=Modified [place] 3=Moderate Assistance 7=Complete IndependenceIRFPAI Quality Coding Scale 6 Independent with activity with or without an assistive device 5 Patient requires set up or clean up by helper. Patient completes activity by themselves 4 Supervision or touching assist (CGA). [place] provide cues , steadying assist 3 The helper provides less than half the effort to complete the activity 2 The helper provides more than half the effort to complete the activity 1 Dependent. The helper does all the effort to complete an activity 7 Patient refused to complete or attempt activity 9 The patient did not perform the activity before the current illness or injury 88 Not attempted due to Medical conditions or safety concerns Grooming (FIM): 6 (Mod I, pt completes in sitting in front of sink.) Oral Hygiene (QC): 6 Bathing (FIM): 6 (Mod I, pt completes using shower bench, long handled sponge, hand held shower, and grabbars for stability. ) Bathing Location: L Arm, R Arm, L Upper Leg, R Upper Leg, L Lower Leg ( including foot), R Lower Leg (including foot), Chest, Abdomen, Buttocks, Perineal Area Shower/Bathe Self (QC): 6 Upper Body (FIM): 4 (CGA due to LOB when pt retrieved and transported clothing using FWW for stability. Assist to maneuver IV pole during retrieval of clothing. In sitting, pt completed UE dressing.) Upper Body Dressing (QC): 4 Lower Body Dressing (FIM): 4 (CGA, due to LOB when pt retrieved and transported clothing using FWW for stability. Assist to maneuver IV pole during retrieval of clothing. In sitting, pt completed LE dressing using AE to reach LE. Pt able to don/doff socks using AE. Pt able to don L shoe using AE. Assist with R shoes due to AFO. Pt able to don R shoe when AFO not on) Lower Body Dressing (QC): 3 On/Off Footwear (QC): 3 Transfers (B, C, W/C) (FIM): 5 (HOB raised, pt able to go from supine to EOB using arm rails for leverage. Pt uses FWW for stability in sit to stand. Assist in manipulation of IV pole. ) Shower Transfer(FIM): 5 (Pt uses shower bench, grabbars and FWW for stability. ) Pt rushes through tasks, verbal cues are needed to instruct him to slow down for safety. Other Treatment Pt ambulated to therapy gym using FWW for stability. Pt completed 3 step nuts and bolt task bilaterally with 1# wt attached increasing UE strength and fine motor skills needed for daily functional tasks. Pt ambulated back to room using FWW for stability. BLANCO/s assists in IV pole manipulation throughout therapy session. Pt had complaints of nausea prior to completing ADLs, reported to nrsg. After therapy, pt lying in bed with call light/phone within reach. All needs met in room. OT Short Term Goals Short Term Goals Time Frame: Jul 06, 2018 Grooming(FIM): 5 Bathing(FIM): 4 Upper Body Dressing(FIM): 4 Lower Body Dressing(FIM): 4 Toileting(FIM): 4 Transfers (B,C,W/C) (FIM): 5 (MET) Toilet/Commode Transfer(FIM): 5 Shower Transfer(FIM): 4 Additional Short Term Goals: 1-Demonstrate ADL Tasks, 2-Verbalize Understanding , 3-ImproveStrength/Camryn 1=Demonstrate adherence to instructed precautions during ADL tasks. 2=Patient will verbalize/demonstrate understanding of assistive devices/ modifications for ADL. 3=Patient will improve strength/tolerance for activity to enable patient to perform ADL's. OT Half-Way Goals Holistic Health Practitioner Goals Time Frame: Jul 20, 2018 Groomin (met) Oral Hygiene (QC): 4 Bathing(FIM): 5 (met) Shower/Bathe Self (QC): 4 Upper Body Dressing(FIM): 5 (met) Upper Body Dressing (QC): 4 Lower Body Dressing(FIM): 5 (ongoing) Lower Body Dressing (QC): 4 On/Off Footwear (QC): 4 Toileting(FIM): 5 (met) Toileting Hygiene (QC): 4 Transfers (B,C,W/C) (FIM): 6 (met) Toilet/Commode Transfer(FIM): 6 (met) Toilet/Commode Transfer (QC): 6 Shower Transfer(FIM): 5 (met) Additional Goals: 1-Demonstrate ADL Tasks, 2-Verbalize Understanding, 3- ImproveStrength/Camryn 1=Demonstrate adherence to instructed precautions during ADL tasks. 2=Patient will verbalize/demonstrate understanding of assistive devices/ modifications for ADL. 3=Patient will improve strength/tolerance for activity to enable patient to perform ADL's. OT Education/Plan Discharge Recommendations Plan/Recommendations: Continue POC Treatment Plan/Plan of Care Patient would benefit from OT for education, treatment and training to promote independence in ADL's, mobility, safety and/or upper extremity function for ADL' s. Plan of Care: ADL Retraining, Functional Mobility, Group Exercise/Act as Ind, UE Funct Exercise/Act Treatment Duration: Jul 20, 2018 Frequency: At least 5 of 7 days/Wk (IRF) Estimated Hrs Per Day: 1.5 hours per day Agreement: Yes Rehab Potential: Fair Time/GCodes Start Time: 06:30 Stop Time: 08:00 Total Time Billed (hr/min): 90 Billed Treatment Time 1 visit- ADL 4 (60 min) Ex 2 (30 min) VIPUL KIRK Jul 20, 2018 07:34
[2018-07-20] MEDS: METOCLOPRAMIDE 10MG/10ML ORAL SOL(REGLAN) UDC PEG SCH ×2 (08:15→20:34)
[2018-07-20] MEDS: buPROPion 100 MG (WELLBUTRIN) TAB PEG SCH ×2 (08:16→20:34)
[2018-07-20] MEDS: FOLIC ACID 1 MG TAB PEG SCH (08:16)
[2018-07-20] MEDS: CARVEDILOL 12.5 MG (COREG) TABLET PEG SCH ×2 (08:16→20:34)
[2018-07-20] MEDS: LACTOBACILLUS ACIDOPHILUS (PROBIOTIC) CAPSULE PEG SCH ×2 (08:16→20:33)
[2018-07-20] MEDS: PANTOPRAZOLE 40 MG (PROTONIX) VIAL IV SCH ×2 (08:16→20:33)
[2018-07-20] MEDS: ONDANSETRON 4 MG/2 ML (SDV) Z0FRAN IVP PRN ×2 (08:16→14:38)
[2018-07-20] MEDS: ALPRAZolam 0.5 MG (XANAX) TAB PEG PRN ×2 (08:16→20:34)
[2018-07-20] MEDS: inSUlin DETERMIR 1 UNIT/0.01 ML (LEVEMIR) CHARGE PER UNIT SQ SCH (08:17)
--- NOTE | 2018-07-20 09:27 | Physical Therapy Daily Note ---
PT Daily Note-Current Subjective pt in bed pre tx, agrees to PT, no pain to report, pt uses toilet during treatment, nurse admin nausea and anxiety medication during treatment Appearance pt in bed post tx w/ phone, call light, tray, all needs met Mental Status Patient Orientation: Normal For Age Attachments: PEG Tube Transfers Functional [place] Measure 0=Not Assessed/NA 4=Minimal Assistance 1=Total Assistance 5=Supervision or Setup 2=Maximal Assistance 6=Modified [place] 3=Moderate Assistance 7=Complete IndependenceIRFPAI Quality Coding Scale 6 Independent with activity with or without an assistive device 5 Patient requires set up or clean up by helper. Patient completes activity by themselves 4 Supervision or touching assist (CGA). [place] provide cues , steadying assist 3 The helper provides less than half the effort to complete the activity 2 The helper provides more than half the effort to complete the activity 1 Dependent. The helper does all the effort to complete an activity 7 Patient refused to complete or attempt activity 9 The patient did not perform the activity before the current illness or injury 88 Not attempted due to Medical conditions or safety concerns Transfers (B, C, W/C) (FIM): 5 Supine to/from Sit: 6 Sit to/from Stand: 5 mod I supine<->sit, uses bed rails, SBA sit<->stand for safety Weight Bearing Right Lower Extremity: Right Full Weight Bearing Left Lower Extremity: Left Full Weight Bearing Gait Training Does the Patient Walk?: Yes Gait (FIM): 5 Distance: 150'x2, 20'x3 Gait Level of Assist: 5 Gait Persons Needed: 1 Gait Assistive Device: FWW pt ambulates to/from gym using FWW, SBA, gait is slow w/ flexed posture and flexed knees, pt fatigues towards end of 150' w/ increased toe drag and decreased stride length GT w/ SPC 20'x3 CGA, occasional unsteadiness but no LOB, uses step-to pattern Stair Training Stair Training: Handrails/: 2 handrails Stairs (FIM): 2 #of Steps: 4 Stairs: Pattern: Step to Level of Assist: 4 ascends/descends 4 steps w/ min A w/ step-to pattern using 2 handrails, pt needs cues for hand placement in front of body and sequencing while going down stairs. Patient had an episode going up the stairs where his knees buckled and needed min assist to recover. Exercises Supine Ex: Bridging, Ankle pumps, Knee to chest Supine Reps: 30 Seated Therapy Exercises: Long arc quads, Hip flexion Seated Reps: [address] Ex=Flex, Abd, Ext, Sit to Stand Standing Reps: 10 Treatments gait training, functional strengthening, stair training, patient was also toileted once Assessment Current Status: Fair Progress pt very fatigued today, unable to ambulate as far w/ SPC as he had previously, decreased activity tolerance overall PT Short Term Goals Short Term Goals Time Frame: Jun 29, 2018 Transfers (B,C,W/C) (FIM): 5 (MET) Gait (FIM): 5 (MET) Distance (FIM): 3=150 ft Gait Distance Comment: 200' Gait Level of Assist: 5 Gait Assistive Device: FWW Wheelchair Distance: 250',150'x2 PT Halfway Goals Halfway Goals PT Rehab Technician Goals Time Frame: Jul 13, 2018 Transfers (B,C,W/C) (FIM): 6 Sit to Lying (QC): 6 Lying-Sitting on Side/Bed(QC): 6 Sit to Stand (QC): 6 Rollin Roll Left to Right (QC): 6 Chair/Tzx-mm-Tysmp Xfer(QC): 6 Car Transfer (QC): 6 Does the Patient Walk: Yes Gait (FIM): 6 Distance: SEE PT GOALS Walk 10 feet (QC): 6 Walk 10ft-Uneven Surface(QC): 6 Walk 50ft with 2 Turns (QC): 6 Walk 150 ft (QC): 6 Gait Level of Assist: 6 Gait Assistive Device: FWW Stairs (FIM): 5 (household exception) # of Steps: 4 1 Step (curb) (QC): 6 4 Steps (QC): 6 12 Steps (QC): 0 Picking up an Object (QC): 4 PT Plan Problem List Problem List: Activity Tolerance, Functional Strength, Safety, Balance, Gait, Transfer, Bed Mobility Treatment/Plan Treatment Plan: Continue Plan of Care Treatment Plan: Bed Mobility, Concurrent Therapy, Education, Functional Activity [place], Functional Strength, Group Therapy, Gait, Safety, Therapeutic Exercise, Transfers Treatment Duration: Jul 13, 2018 Frequency: Modified Program (IRF) (due to dialysis) Estimated Hrs Per Day: 1.5 hours per day Patient and/or Family Agrees t: Yes Safety Risks/Education Patient Education: Gait Training, Transfer Techniques, Steps, Correct Positioning, Safety Issues Teaching Recipient: Patient Teaching Methods: Demonstration, Discussion Response to Teaching: Reinforcement Needed Time/GCodes Time In: 0800 Time Out: 929 Total Billed Treatment Time: 90 Total Billed Treatment 1 visit GT 30' FA 15' EX 45' DONNELL MA PT Jul 20, 2018 09:27
[2018-07-20] MEDS: CHOLESTYRAMINE 4 GM (QUESTRAN LITE, PREVALITE) PKT PEG SCH ×4 (14:14→18:09)
[2018-07-20] MEDS: ENOXAPARIN 30 MG/0.3 ML (LOVENOX) SYR SC SCH (16:15)
[2018-07-20 20:30] VITALS: BP 121/68
[2018-07-20] MEDS: MELATONIN 3 MG TABLET PEG SCH (20:34)
[2018-07-20] MEDS: ZOLPIDEM 5 MG (AMBIEN) TAB PEG SCH (20:34)
[2018-07-21 05:09] VITALS: BP 132/76
[2018-07-21] MEDS: inSUlin ASPART (NovoLOG) 1 UNIT/0.01 ML (CHARGE PER UNIT) SC SCH ×2 (05:20→17:05)
[2018-07-21] MEDS: CATHETER FLUSH 10 ML SYR IV SCH ×3 (06:12→21:07)
[2018-07-21] MEDS: predniSONE 10 MG TAB PEG SCH (06:12)
[2018-07-21] MEDS: PANTOPRAZOLE 40 MG (PROTONIX) VIAL IV SCH ×2 (07:56→21:47)
[2018-07-21] MEDS: buPROPion 100 MG (WELLBUTRIN) TAB PEG SCH ×2 (07:56→21:48)
[2018-07-21] MEDS: LACTOBACILLUS ACIDOPHILUS (PROBIOTIC) CAPSULE PEG SCH ×2 (07:56→21:47)
[2018-07-21] MEDS: inSUlin DETERMIR 1 UNIT/0.01 ML (LEVEMIR) CHARGE PER UNIT SQ SCH (07:56)
[2018-07-21] MEDS: METOCLOPRAMIDE 10MG/10ML ORAL SOL(REGLAN) UDC PEG SCH ×2 (07:57→21:48)
[2018-07-21] MEDS: CARVEDILOL 12.5 MG (COREG) TABLET PEG SCH ×2 (07:57→21:47)
[2018-07-21] MEDS: ALPRAZolam 0.5 MG (XANAX) TAB PEG PRN ×2 (07:57→21:47)
[2018-07-21] MEDS: FOLIC ACID 1 MG TAB PEG SCH (07:57)
--- NOTE | 2018-07-21 09:01 | Physical Therapy Daily Note ---
PT Daily Note-Current Subjective pt in bed pre tx, agrees to PT, no pain to report Appearance pt in bed post tx w/ phone, call light, tray, all needs met Mental Status Patient Orientation: Normal For Age Attachments: PEG Tube Transfers Functional [place] Measure 0=Not Assessed/NA 4=Minimal Assistance 1=Total Assistance 5=Supervision or Setup 2=Maximal Assistance 6=Modified [place] 3=Moderate Assistance 7=Complete IndependenceIRFPAI Quality Coding Scale 6 Independent with activity with or without an assistive device 5 Patient requires set up or clean up by helper. Patient completes activity by themselves 4 Supervision or touching assist (CGA). [place] provide cues , steadying assist 3 The helper provides less than half the effort to complete the activity 2 The helper provides more than half the effort to complete the activity 1 Dependent. The helper does all the effort to complete an activity 7 Patient refused to complete or attempt activity 9 The patient did not perform the activity before the current illness or injury 88 Not attempted due to Medical conditions or safety concerns Transfers (B, C, W/C) (FIM): 6 Supine to/from Sit: 6 Sit to/from Stand: 6 Weight Bearing Right Lower Extremity: Right Full Weight Bearing Left Lower Extremity: Left Full Weight Bearing Gait Training Does the Patient Walk?: Yes Gait (FIM): 2 Distance (FIM): 7=631-48 ft Distance: 60'x4 Gait Level of Assist: 4 Gait Persons Needed: 1 Gait Assistive Device: FWW GT w/ SPC 60'x2 w/ Cate, pt needs cues to put weight through cane, step-to pattern w/ occasional unsteadiness GT w/ FWW 60'x2 SBA, slow but steady w/ flexed posture When ambulating with SPC as patient fatigues he has more of a flexed posture and has much more difficulty advancing his right leg. Exercises Supine Ex: Bridging, Knee to chest (w/ sammarinese ball), Straight leg raise, Hip abd /add Supine Reps: 40 Seated Therapy Exercises: Long arc quads (3# wt) Standing: Marching Standing Reps: 10 Neuromuscular airex pad standing balance w/o support Cate 3x2 min Treatments functional strengthening, gait training, balance training Assessment Current Status: Fair Progress improving distance and coordination w/ SPC, increased reps and difficulty for functional strengthening PT Short Term Goals Short Term Goals Time Frame: Jun 29, 2018 Transfers (B,C,W/C) (FIM): 5 (MET) Gait (FIM): 5 (MET) Distance (FIM): 3=150 ft Gait Distance Comment: 200' Gait Level of Assist: 5 Gait Assistive Device: FWW Wheelchair Distance: 250',150'x2 PT Adaptive Physical Education Specialist Goals Adaptive Physical Education Specialist Goals PT Half-Way Goals Time Frame: Jul 13, 2018 Transfers (B,C,W/C) (FIM): 6 Sit to Lying (QC): 6 Lying-Sitting on Side/Bed(QC): 6 Sit to Stand (QC): 6 Rollin Roll Left to Right (QC): 6 Chair/Bfo-xo-Rbxzx Xfer(QC): 6 Car Transfer (QC): 6 Does the Patient Walk: Yes Gait (FIM): 6 Distance: SEE PT GOALS Walk 10 feet (QC): 6 Walk 10ft-Uneven Surface(QC): 6 Walk 50ft with 2 Turns (QC): 6 Walk 150 ft (QC): 6 Gait Level of Assist: 6 Gait Assistive Device: FWW Stairs (FIM): 5 (household exception) # of Steps: 4 1 Step (curb) (QC): 6 4 Steps (QC): 6 12 Steps (QC): 0 Picking up an Object (QC): 4 PT Plan Problem List Problem List: Activity Tolerance, Functional Strength, Safety, Balance, Gait, Transfer, Bed Mobility, ROM Treatment/Plan Treatment Plan: Continue Plan of Care Treatment Plan: Bed Mobility, Concurrent Therapy, Education, Functional Activity [place], Functional Strength, Group Therapy, Gait, Safety, Therapeutic Exercise, Transfers Treatment Duration: Jul 13, 2018 Frequency: Modified Program (IRF) (due to dialysis) Estimated Hrs Per Day: 1.5 hours per day Patient and/or Family Agrees t: Yes Safety Risks/Education Patient Education: Gait Training, Transfer Techniques, Correct Positioning, Safety Issues Teaching Recipient: Patient Teaching Methods: Demonstration, Discussion Response to Teaching: Reinforcement Needed Time/GCodes Time In: 0800 Time Out: 0900 Total Billed Treatment Time: 60 Total Billed Treatment 1 visit GT 20' EX 25' FA 15' DONNELL MA PT Jul 21, 2018 09:01
--- NOTE | 2018-07-21 10:32 | Occupational Ther Daily Note ---
OT Current Status-Daily Note Subjective Pt alert, lying in bed. No c/o pain, and pt states that he feels much better today. Pt agrees to therapy. Pt began bolus feeding, therefore was not attached to IV pole throughout OT session. Mental Status/Objective Patient Orientation: Person, Place, Time, Situation Functional [place] Measure 0=Not Assessed/NA 4=Minimal Assistance 1=Total Assistance 5=Supervision or Setup 2=Maximal Assistance 6=Modified [place] 3=Moderate Assistance 7=Complete [place] Attachments: IV, PEG Tube, Other-See Comments (PICC) ADL-Treatment Functional [place] Measure 0=Not Assessed/NA 4=Minimal Assistance 1=Total Assistance 5=Supervision or Setup 2=Maximal Assistance 6=Modified [place] 3=Moderate Assistance 7=Complete IndependenceIRFPAI Quality Coding Scale 6 Independent with activity with or without an assistive device 5 Patient requires set up or clean up by helper. Patient completes activity by themselves 4 Supervision or touching assist (CGA). [place] provide cues , steadying assist 3 The helper provides less than half the effort to complete the activity 2 The helper provides more than half the effort to complete the activity 1 Dependent. The helper does all the effort to complete an activity 7 Patient refused to complete or attempt activity 9 The patient did not perform the activity before the current illness or injury 88 Not attempted due to Medical conditions or safety concerns Grooming (FIM): 6 (Mod I, pt completes in sitting in front of sink. ) Oral Hygiene (QC): 6 Transfers (B, C, W/C) (FIM): 6 (HOB raised, pt goes from supine to EOB using bed rail for leverage. Pt uses EOB and FWW for stability in sit to stand. ) Other Treatment Pt ambulated around dinning area using FWW for stability, retrieving cones from higher/lower levels simulating picking up objects around his home. Pt ambulated to therapy gym using FWW completing 2 fine motor tasks bilaterally with 1# wt increasing UE strength and fine motor needed for daily functional tasks. Pt completed dynamic sitting task with 1# wt attached increasing hand eye coordination, sitting balance, and UE strength needed for daily functional activities. Pt completed resistive clothes pins and pegs bilaterally with 1# wt increasing pincher corn sheller operator, fine motor and UE strength needed for daily functional tasks. Pt ambulated back to room using FWW for stability. Pt had no complaints of nausea throughout session and needed fewer rest breaks. After therapy, pt lying in bed with call light/phone within reach. All needs met in room. OT Short Term Goals Short Term Goals Time Frame: Jul 06, 2018 Grooming(FIM): 5 Bathing(FIM): 4 Upper Body Dressing(FIM): 4 Lower Body Dressing(FIM): 4 Toileting(FIM): 4 Transfers (B,C,W/C) (FIM): 5 (MET) Toilet/Commode Transfer(FIM): 5 Shower Transfer(FIM): 4 Additional Short Term Goals: 1-Demonstrate ADL Tasks, 2-Verbalize Understanding , 3-ImproveStrength/[place] 1=Demonstrate adherence to instructed precautions during ADL tasks. 2=Patient will verbalize/demonstrate understanding of assistive devices/ modifications for ADL. 3=Patient will improve strength/tolerance for activity to enable patient to perform ADL's. OT Hydro Operator Goals [facility] Goals Time Frame: Jul 20, 2018 Groomin (met) Oral Hygiene (QC): 4 Bathing(FIM): 5 (met) Shower/Bathe Self (QC): 4 Upper Body Dressing(FIM): 5 (met) Upper Body Dressing (QC): 4 Lower Body Dressing(FIM): 5 (ongoing) Lower Body Dressing (QC): 4 On/Off Footwear (QC): 4 Toileting(FIM): 5 (met) Toileting Hygiene (QC): 4 Transfers (B,C,W/C) (FIM): 6 (met) Toilet/Commode Transfer(FIM): 6 (met) Toilet/Commode Transfer (QC): 6 Shower Transfer(FIM): 5 (met) Additional Goals: 1-Demonstrate ADL Tasks, 2-Verbalize Understanding, 3- ImproveStrength/[place] 1=Demonstrate adherence to instructed precautions during ADL tasks. 2=Patient will verbalize/demonstrate understanding of assistive devices/ modifications for ADL. 3=Patient will improve strength/tolerance for activity to enable patient to perform ADL's. OT Education/Plan Discharge Recommendations Plan/Recommendations: Continue POC Treatment Plan/Plan of Care Patient would benefit from OT for education, treatment and training to promote independence in ADL's, mobility, safety and/or upper extremity function for ADL' s. Plan of Care: ADL Retraining, Functional Mobility, Group Exercise/Act as Ind, UE Funct Exercise/Act Treatment Duration: Jul 20, 2018 Frequency: At least 5 of 7 days/Wk (IRF) Estimated Hrs Per Day: 1.5 hours per day Agreement: Yes Rehab Potential: Fair Time/GCodes Start Time: 09:00 Stop Time: 10:30 Total Time Billed (hr/min): 90 Billed Treatment Time 1 visit- ADL 1 (10 min), FA 1 (20 min), EX 4 (60 min) VIPUL KIRK Jul 21, 2018 10:32
[2018-07-21] MEDS: CHOLESTYRAMINE 4 GM (QUESTRAN LITE, PREVALITE) PKT PEG SCH ×4 (11:10→22:46)
--- NOTE | 2018-07-21 12:05 | Physical Therapy Daily Note ---
PT Daily Note-Current Subjective pt in bed pre tx, agrees to PT, no pain to report Appearance pt on toilet for BM post tx, nurse notified Mental Status Patient Orientation: Normal For Age Attachments: PEG Tube Transfers Functional [place] Measure 0=Not Assessed/NA 4=Minimal Assistance 1=Total Assistance 5=Supervision or Setup 2=Maximal Assistance 6=Modified [place] 3=Moderate Assistance 7=Complete IndependenceIRFPAI Quality Coding Scale 6 Independent with activity with or without an assistive device 5 Patient requires set up or clean up by helper. Patient completes activity by themselves 4 Supervision or touching assist (CGA). [place] provide cues , steadying assist 3 The helper provides less than half the effort to complete the activity 2 The helper provides more than half the effort to complete the activity 1 Dependent. The helper does all the effort to complete an activity 7 Patient refused to complete or attempt activity 9 The patient did not perform the activity before the current illness or injury 88 Not attempted due to Medical conditions or safety concerns Transfers (B, C, W/C) (FIM): 6 Supine to/from Sit: 6 Sit to/from Stand: 4 supine<->sit mod I, sit<->stand CGA when using SPC, SBA when using FWW Weight Bearing Right Lower Extremity: Right Full Weight Bearing Left Lower Extremity: Left Full Weight Bearing Gait Training Does the Patient Walk?: Yes Gait (FIM): 2 Distance (FIM): 9=243-48 ft Distance: 60'x4 Gait Level of Assist: 4 Gait Persons Needed: 1 Gait Assistive Device: Cane Single Point pt ambulates 60'x2 w/ SPC, CGA, step-to pattern, occasional unsteadiness, short strides w/ crouched posture pt ambulates 60'x2 w/ FWW SBA, steady, no LOB Exercises NuStep Minutes: 15 NuStep Workload: 5 Treatments gait training, endurance training Assessment Current Status: Fair Progress pt shows good motivation to use SPC for ambulation, wants to use SPC first before using FWW, switches to FWW when he is fatigued, PT Short Term Goals Short Term Goals Time Frame: Jun 29, 2018 Transfers (B,C,W/C) (FIM): 5 (MET) Gait (FIM): 5 (MET) Distance (FIM): 3=150 ft Gait Distance Comment: 200' Gait Level of Assist: 5 Gait Assistive Device: FWW Wheelchair Distance: 250',150'x2 PT Jail Goals Jail Goals PT [place] Helper Goals Time Frame: Jul 13, 2018 Transfers (B,C,W/C) (FIM): 6 Sit to Lying (QC): 6 Lying-Sitting on Side/Bed(QC): 6 Sit to Stand (QC): 6 Rollin Roll Left to Right (QC): 6 Chair/Mdy-wy-Errbu Xfer(QC): 6 Car Transfer (QC): 6 Does the Patient Walk: Yes Gait (FIM): 6 Distance: SEE PT GOALS Walk 10 feet (QC): 6 Walk 10ft-Uneven Surface(QC): 6 Walk 50ft with 2 Turns (QC): 6 Walk 150 ft (QC): 6 Gait Level of Assist: 6 Gait Assistive Device: FWW Stairs (FIM): 5 (household exception) # of Steps: 4 1 Step (curb) (QC): 6 4 Steps (QC): 6 12 Steps (QC): 0 Picking up an Object (QC): 4 PT Plan Problem List Problem List: Activity Tolerance, Functional Strength, Safety, Balance, Gait, Transfer, Bed Mobility Treatment/Plan Treatment Plan: Continue Plan of Care Treatment Plan: Bed Mobility, Concurrent Therapy, Education, Functional Activity [place], Functional Strength, Group Therapy, Gait, Safety, Therapeutic Exercise, Transfers Treatment Duration: Jul 13, 2018 Frequency: Modified Program (IRF) (due to dialysis) Estimated Hrs Per Day: 1.5 hours per day Patient and/or Family Agrees t: Yes Safety Risks/Education Patient Education: Gait Training, Transfer Techniques, Correct Positioning, Disease Process, Safety Issues Teaching Recipient: Patient Teaching Methods: Demonstration, Discussion Response to Teaching: Reinforcement Needed Time/GCodes Time In: 1130 Time Out: 1200 Total Billed Treatment Time: 30 Total Billed Treatment 1 visit GT 15' EX 15' DONNELL MA PT Jul 21, 2018 12:05
[2018-07-21] MEDS: ENOXAPARIN 30 MG/0.3 ML (LOVENOX) SYR SC SCH (14:28)
[2018-07-21 16:22] VITALS: BP 136/77
[2018-07-21] MEDS: ONDANSETRON 4 MG/2 ML (SDV) Z0FRAN IVP PRN (21:05)
[2018-07-21] MEDS: ZOLPIDEM 5 MG (AMBIEN) TAB PEG SCH (21:47)
[2018-07-21] MEDS: MELATONIN 3 MG TABLET PEG SCH (21:47)
[2018-07-22 05:29] VITALS: BP 148/81
[2018-07-22] MEDS: inSUlin ASPART (NovoLOG) 1 UNIT/0.01 ML (CHARGE PER UNIT) SC SCH ×2 (06:14→17:31)
[2018-07-22] MEDS: CATHETER FLUSH 10 ML SYR IV SCH ×3 (06:26→20:59)
[2018-07-22] MEDS: predniSONE 10 MG TAB PEG SCH (06:26)
[2018-07-22] MEDS: ONDANSETRON 4 MG/2 ML (SDV) Z0FRAN IVP PRN ×2 (07:32→21:29)
[2018-07-22] MEDS: CARVEDILOL 12.5 MG (COREG) TABLET PEG SCH ×2 (07:56→20:58)
[2018-07-22] MEDS: LACTOBACILLUS ACIDOPHILUS (PROBIOTIC) CAPSULE PEG SCH ×2 (07:57→20:58)
[2018-07-22] MEDS: FOLIC ACID 1 MG TAB PEG SCH (07:57)
[2018-07-22] MEDS: buPROPion 100 MG (WELLBUTRIN) TAB PEG SCH ×2 (07:57→20:57)
[2018-07-22] MEDS: METOCLOPRAMIDE 10MG/10ML ORAL SOL(REGLAN) UDC PEG SCH ×2 (07:59→20:58)
[2018-07-22] MEDS: inSUlin DETERMIR 1 UNIT/0.01 ML (LEVEMIR) CHARGE PER UNIT SQ SCH (08:00)
[2018-07-22] MEDS: ALPRAZolam 0.5 MG (XANAX) TAB PEG PRN ×2 (08:02→20:58)
[2018-07-22] MEDS: SCOPOLAMINE 1.5 MG (TRANSDERM-SCOP) PATCH TOP SCH (08:03)
[2018-07-22] MEDS: PANTOPRAZOLE 40 MG (PROTONIX) VIAL IV SCH ×2 (08:04→20:57)
[2018-07-22] MEDS: ENOXAPARIN 30 MG/0.3 ML (LOVENOX) SYR SC SCH (08:06)
[2018-07-22] MEDS: CHOLESTYRAMINE 4 GM (QUESTRAN LITE, PREVALITE) PKT PEG SCH ×4 (09:15→17:30)
[2018-07-22 20:56] VITALS: BP 145/83
[2018-07-22] MEDS: MELATONIN 3 MG TABLET PEG SCH (20:58)
[2018-07-22] MEDS: ZOLPIDEM 5 MG (AMBIEN) TAB PEG SCH (20:58)
[2018-07-23 06:00] VITALS: BP 145/78
[2018-07-23] MEDS: predniSONE 10 MG TAB PEG SCH (06:14)
[2018-07-23] MEDS: inSUlin ASPART (NovoLOG) 1 UNIT/0.01 ML (CHARGE PER UNIT) SC SCH ×2 (06:27→16:04)
[2018-07-23] MEDS: CATHETER FLUSH 10 ML SYR IV SCH ×3 (06:36→21:20)
[2018-07-23] MEDS: ONDANSETRON 4 MG/2 ML (SDV) Z0FRAN IVP PRN ×3 (07:10→20:18)
[2018-07-23 09:13] VITALS: BP 147/82
[2018-07-23] MEDS: METOCLOPRAMIDE 10MG/10ML ORAL SOL(REGLAN) UDC PEG SCH ×2 (10:15→21:22)
[2018-07-23] MEDS: PANTOPRAZOLE 40 MG (PROTONIX) VIAL IV SCH ×2 (10:15→21:20)
[2018-07-23] MEDS: inSUlin DETERMIR 1 UNIT/0.01 ML (LEVEMIR) CHARGE PER UNIT SQ SCH (10:16)
[2018-07-23] MEDS: ALPRAZolam 0.5 MG (XANAX) TAB PEG PRN ×2 (10:16→18:16)
[2018-07-23] MEDS: LACTOBACILLUS ACIDOPHILUS (PROBIOTIC) CAPSULE PEG SCH ×2 (10:16→21:21)
[2018-07-23] MEDS: buPROPion 100 MG (WELLBUTRIN) TAB PEG SCH ×2 (10:16→21:21)
[2018-07-23] MEDS: FOLIC ACID 1 MG TAB PEG SCH (10:16)
[2018-07-23] MEDS: CARVEDILOL 12.5 MG (COREG) TABLET PEG SCH ×2 (10:16→21:21)
[2018-07-23] MEDS: CHOLESTYRAMINE 4 GM (QUESTRAN LITE, PREVALITE) PKT PEG SCH ×4 (12:51→19:15)
[2018-07-23] MEDS: ENOXAPARIN 30 MG/0.3 ML (LOVENOX) SYR SC SCH (15:18)
[2018-07-23 16:50] VITALS: BP 155/77
[2018-07-23] MEDS: CATHETER FLUSH 10 ML SYR IV PRN (20:19)
[2018-07-23] MEDS: MELATONIN 3 MG TABLET PEG SCH (21:21)
[2018-07-23] MEDS: ZOLPIDEM 5 MG (AMBIEN) TAB PEG SCH (21:22)
[2018-07-24] MEDS: CATHETER FLUSH 10 ML SYR IV SCH ×3 (04:33→20:00)
[2018-07-24] MEDS: ONDANSETRON 4 MG/2 ML (SDV) Z0FRAN IVP PRN ×3 (04:33→15:18)
[2018-07-24 05:34] VITALS: BP 147/74
[2018-07-24] MEDS: inSUlin ASPART (NovoLOG) 1 UNIT/0.01 ML (CHARGE PER UNIT) SC SCH ×2 (06:00→17:01)
[2018-07-24] MEDS: predniSONE 10 MG TAB PEG SCH (06:55)
[2018-07-24] MEDS: PANTOPRAZOLE 40 MG (PROTONIX) VIAL IV SCH ×2 (07:58→19:59)
[2018-07-24 08:50] VITALS: BP 179/99
[2018-07-24] MEDS: inSUlin DETERMIR 1 UNIT/0.01 ML (LEVEMIR) CHARGE PER UNIT SQ SCH (08:52)
[2018-07-24] MEDS: FOLIC ACID 1 MG TAB PEG SCH (08:52)
[2018-07-24] MEDS: CARVEDILOL 12.5 MG (COREG) TABLET PEG SCH ×2 (08:52→20:00)
[2018-07-24] MEDS: buPROPion 100 MG (WELLBUTRIN) TAB PEG SCH ×2 (08:52→20:00)
[2018-07-24] MEDS: ALPRAZolam 0.5 MG (XANAX) TAB PEG PRN ×2 (08:52→17:51)
[2018-07-24] MEDS: LACTOBACILLUS ACIDOPHILUS (PROBIOTIC) CAPSULE PEG SCH ×2 (08:53→20:00)
[2018-07-24] MEDS: METOCLOPRAMIDE 10MG/10ML ORAL SOL(REGLAN) UDC PEG SCH ×2 (08:53→20:00)
--- NOTE | 2018-07-24 09:00 | Physical Therapy Daily Note ---
PT Daily Note-Current Subjective pt in bed pre tx, agrees to PT, no pain to report Appearance pt in bed post tx, all needs met, nurse in room Mental Status Patient Orientation: Normal For Age Attachments: PEG Tube Transfers Functional [place] Measure 0=Not Assessed/NA 4=Minimal Assistance 1=Total Assistance 5=Supervision or Setup 2=Maximal Assistance 6=Modified [place] 3=Moderate Assistance 7=Complete IndependenceIRFPAI Quality Coding Scale 6 Independent with activity with or without an assistive device 5 Patient requires set up or clean up by helper. Patient completes activity by themselves 4 Supervision or touching assist (CGA). [place] provide cues , steadying assist 3 The helper provides less than half the effort to complete the activity 2 The helper provides more than half the effort to complete the activity 1 Dependent. The helper does all the effort to complete an activity 7 Patient refused to complete or attempt activity 9 The patient did not perform the activity before the current illness or injury 88 Not attempted due to Medical conditions or safety concerns Transfers (B, C, W/C) (FIM): 6 Scootin Rollin Roll Left to Right (QC): 6 Supine to/from Sit: 6 Sit to/from Stand: 6 Sit to Lying (QC): 6 Sit to Stand (QC): 6 Chair/Avl-hv-Ihrdz Xfer(QC): 6 Bed to/from Chair: 6 Car Transfer (QC): 6 mod I w/ all transfers, sit<->stand mod I when using FWW, SBA for SPC Weight Bearing Right Lower Extremity: Right Full Weight Bearing Left Lower Extremity: Left Full Weight Bearing Gait Training Does the Patient Walk?: Yes Gait (FIM): 6 Distance: 200',150', 20'x3 Walk 10 feet (QC): 6 Walk 50 ft with 2 Turns(QC): 6 Walk 150 ft (QC): 6 Walking 10ft/uneven surface-QC: 6 Gait Level of Assist: 6 Gait Assistive Device: FWW pt ambulates to/from gym using FWW mod I, gait is slow but steady, no LOB, flexed trunk and knees GT in gym w/ SPC 20'x3 CGA, pt occasionally loses his balance, mostly posteriorly, but is able to steady himself, step-to pattern w/ short steps, narrow HELGA Wheelchair Training Does the Pt Use a Wheelchair?: No Stair Training Stair Training: Handrails/: 2 handrails Stairs (FIM): 2 #of Steps: 4 1 Step (curb) (QC): 4 4 Steps (QC): 88 12 Steps (QC): 88 Stairs: Pattern: Step to Level of Assist: 5 ascends/descends 4 stairs x2 using both handrails, step-to pattern w/ SBA Balance Picking up an Object (QC): 88 Neuromuscular standing balance in // bars 3x60s, CGA, cues needed for pt to stand up straight , tends to lean to L w/ flexed posture and flexed RLE Treatments gait training, stair training, balance training Assessment Current Status: Fair Progress improving balance and righting reactions when losing balance w/ SPC PT Short Term Goals Short Term Goals Time Frame: Jun 29, 2018 Transfers (B,C,W/C) (FIM): 5 (MET) Gait (FIM): 5 (MET) Distance (FIM): 3=150 ft Gait Distance Comment: 200' Gait Level of Assist: 5 Gait Assistive Device: FWW Wheelchair Distance: 250',150'x2 PT Fdc Goals Sugar Cane Planting 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 Goals PT Fdc Goals Time Frame: Jul 13, 2018 Transfers (B,C,W/C) (FIM): 6 (MET) Sit to Lying (QC): 6 (MET) Lying-Sitting on Side/Bed(QC): 6 (MET) Sit to Stand (QC): 6 (MET) Rollin (MET) Roll Left to Right (QC): 6 (MET) Chair/Hgy-kh-Zfkmi Xfer(QC): 6 (MET) Car Transfer (QC): 6 (MET) Does the Patient Walk: Yes Gait (FIM): 6 (MT) Distance: SEE PT GOALS Walk 10 feet (QC): 6 (MET) Walk 10ft-Uneven Surface(QC): 6 (MET) Walk 50ft with 2 Turns (QC): 6 (MET) Walk 150 ft (QC): 6 (MET) Gait Level of Assist: 6 (MET) Gait Assistive Device: FWW Stairs (FIM): 5 (household exception) # of Steps: 4 1 Step (curb) (QC): 6 4 Steps (QC): 6 12 Steps (QC): 0 Picking up an Object (QC): 4 PT Plan Problem List Problem List: Activity Tolerance, Functional Strength, Safety, Balance, Gait, Transfer, Bed Mobility Treatment/Plan Treatment Plan: Continue Plan of Care Treatment Plan: Bed Mobility, Concurrent Therapy, Education, Functional Activity [place], Functional Strength, Group Therapy, Gait, Safety, Therapeutic Exercise, Transfers Treatment Duration: Jul 13, 2018 Frequency: Modified Program (IRF) (due to dialysis) Estimated Hrs Per Day: 1.5 hours per day Patient and/or Family Agrees t: Yes Safety Risks/Education Patient Education: Gait Training, Transfer Techniques, Steps, Correct Positioning, Safety Issues Teaching Recipient: Patient Teaching Methods: Demonstration, Discussion Response to Teaching: Reinforcement Needed Time/GCodes Time In: 0800 Time Out: 0900 Total Billed Treatment Time: 60 Total Billed Treatment 1 visit GT 30' FA 15' NM 15' DONNELL MA PT Jul 24, 2018 09:00
--- NOTE | 2018-07-24 09:55 | Occupational Ther Daily Note ---
OT Current Status-Daily Note Subjective Pt alert, lying in bed. Nrsg completing bolus feeding. Pt agrees to therapy. No c/o pain at this time. Mental Status/Objective Patient Orientation: Person, Place, Time, Situation Functional [place] Measure 0=Not Assessed/NA 4=Minimal Assistance 1=Total Assistance 5=Supervision or Setup 2=Maximal Assistance 6=Modified [place] 3=Moderate Assistance 7=Complete [place] ADL-Treatment Functional [place] Measure 0=Not Assessed/NA 4=Minimal Assistance 1=Total Assistance 5=Supervision or Setup 2=Maximal Assistance 6=Modified [place] 3=Moderate Assistance 7=Complete IndependenceIRFPAI Quality Coding Scale 6 Independent with activity with or without an assistive device 5 Patient requires set up or clean up by helper. Patient completes activity by themselves 4 Supervision or touching assist (CGA). [place] provide cues , steadying assist 3 The helper provides less than half the effort to complete the activity 2 The helper provides more than half the effort to complete the activity 1 Dependent. The helper does all the effort to complete an activity 7 Patient refused to complete or attempt activity 9 The patient did not perform the activity before the current illness or injury 88 Not attempted due to Medical conditions or safety concerns Eating (QC): 88 Grooming (FIM): 6 (Sitting at sink, pt able to complete by self.) Oral Hygiene (QC): 6 Bathing (FIM): 6 (Using grabbar, hand held shower, shower bench and long handle sponge pt able to complete by self.) Bathing Location: L Arm, R Arm, L Upper Leg, R Upper Leg, L Lower Leg ( including foot), R Lower Leg (including foot), Chest, Abdomen, Buttocks, Perineal Area Shower/Bathe Self (QC): 6 Upper Body (FIM): 6 (Using FWW to retrieve clothing from closet and drawer, pt able to complete upper body dressing by self.) Upper Body Dressing (QC): 6 Lower Body Dressing (QC): 6 (Using FWW to retrieve clothing from closet and drawer, pt able to complete upper body dressing by self.) Toileting (FIM): 6 (Using grabbar and FWW to complete by self.) Toileting Hygiene (QC): 6 Transfers (B, C, W/C) (FIM): 6 (Using FWW and surfaces to push up from, pt able to complete.) Toilet/Commode Transfer (FIM): 6 (Using FWW and grabbars, pt completes by self. ) Toilet Transfer (QC): 6 Shower Transfer(FIM): 6 (Using shower bench, grabbar and FWW to complete transfer.) After therapy, pt lying in bed with call light/phone in reach. All needs met in room. OT Short Term Goals Short Term Goals Time Frame: Jul 06, 2018 Grooming(FIM): 5 Bathing(FIM): 4 Upper Body Dressing(FIM): 4 Lower Body Dressing(FIM): 4 Toileting(FIM): 4 Transfers (B,C,W/C) (FIM): 5 (MET) Toilet/Commode Transfer(FIM): 5 Shower Transfer(FIM): 4 Additional Short Term Goals: 1-Demonstrate ADL Tasks, 2-Verbalize Understanding , 3-ImproveStrength/Camryn 1=Demonstrate adherence to instructed precautions during ADL tasks. 2=Patient will verbalize/demonstrate understanding of assistive devices/ modifications for ADL. 3=Patient will improve strength/tolerance for activity to enable patient to perform ADL's. OT Demonstrator Sewing Techniques Goals Demonstrator Sewing Techniques Goals Time Frame: Jul 20, 2018 Groomin (met) Oral Hygiene (QC): 4 (met) Bathing(FIM): 5 (met) Shower/Bathe Self (QC): 4 (met) Upper Body Dressing(FIM): 5 (met) Upper Body Dressing (QC): 4 (met) Lower Body Dressing(FIM): 5 (ongoing) Lower Body Dressing (QC): 4 (met) On/Off Footwear (QC): 4 (met) Toileting(FIM): 5 (met) Toileting Hygiene (QC): 4 (met) Transfers (B,C,W/C) (FIM): 6 (met) Toilet/Commode Transfer(FIM): 6 (met) Toilet/Commode Transfer (QC): 6 (met) Shower Transfer(FIM): 5 (met) Additional Goals: 1-Demonstrate ADL Tasks, 2-Verbalize Understanding, 3- ImproveStrength/Camryn 1=Demonstrate adherence to instructed precautions during ADL tasks. 2=Patient will verbalize/demonstrate understanding of assistive devices/ modifications for ADL. 3=Patient will improve strength/tolerance for activity to enable patient to perform ADL's. OT Education/Plan Discharge Recommendations Plan/Recommendations: Continue POC Treatment Plan/Plan of Care Patient would benefit from OT for education, treatment and training to promote independence in ADL's, mobility, safety and/or upper extremity function for ADL' s. Plan of Care: ADL Retraining, Functional Mobility, Group Exercise/Act as Ind, UE Funct Exercise/Act Treatment Duration: Jul 20, 2018 Frequency: At least 5 of 7 days/Wk (IRF) Estimated Hrs Per Day: 1.5 hours per day Agreement: Yes Rehab Potential: Fair Time/GCodes Start Time: 09:00 Stop Time: 10:00 Total Time Billed (hr/min): 60 Billed Treatment Time 1 visit-ADL 4 (60 min) VIPUL KIRK Jul 24, 2018 09:55
[2018-07-24] MEDS: DARBEPOETIN 100 MCG/ML (ARANESP) 1 ML VIAL SC SCH (10:01)
--- NOTE | 2018-07-24 11:40 | Physical Therapy Daily Note ---
PT Daily Note-Current Subjective pt in bed pre tx, agrees to PT, no pain to report Appearance pt seated at EOB post tx, OT in the room to begin tx, all needs met Mental Status Patient Orientation: Normal For Age Transfers Functional [place] Measure 0=Not Assessed/NA 4=Minimal Assistance 1=Total Assistance 5=Supervision or Setup 2=Maximal Assistance 6=Modified [place] 3=Moderate Assistance 7=Complete IndependenceIRFPAI Quality Coding Scale 6 Independent with activity with or without an assistive device 5 Patient requires set up or clean up by helper. Patient completes activity by themselves 4 Supervision or touching assist (CGA). [place] provide cues , steadying assist 3 The helper provides less than half the effort to complete the activity 2 The helper provides more than half the effort to complete the activity 1 Dependent. The helper does all the effort to complete an activity 7 Patient refused to complete or attempt activity 9 The patient did not perform the activity before the current illness or injury 88 Not attempted due to Medical conditions or safety concerns Transfers (B, C, W/C) (FIM): 6 Supine to/from Sit: 6 Sit to/from Stand: 6 mod I for transfers Weight Bearing Right Lower Extremity: Right Full Weight Bearing Left Lower Extremity: Left Full Weight Bearing Gait Training Does the Patient Walk?: Yes Gait (FIM): 6 Distance: 150'x2 Gait Level of Assist: 6 Gait Assistive Device: FWW pt ambulates to/from gym using FWW mod I, slow, no LOB, pt leans forward on walker w/ flexed posture Exercises Standing: Sit to Stand Standing Reps: 25 airex pad in chair: sit<->stand x10 slow sit<->stand x10 sit<->stand w/o using arms x5 Cate Treatments gait training, functional strengthening Assessment Current Status: Fair Progress improved endurance and sit<->stand control, pt states he's very nauseated, no vomiting episodes, treatment taken slowly PT Short Term Goals Short Term Goals Time Frame: Jun 29, 2018 Transfers (B,C,W/C) (FIM): 5 (MET) Gait (FIM): 5 (MET) Distance (FIM): 3=150 ft Gait Distance Comment: 200' Gait Level of Assist: 5 Gait Assistive Device: FWW Wheelchair Distance: 250',150'x2 PT Correction Goals Plastering Supervisor Goals PT Plastering Supervisor Goals Time Frame: Jul 13, 2018 Transfers (B,C,W/C) (FIM): 6 (MET) Sit to Lying (QC): 6 (MET) Lying-Sitting on Side/Bed(QC): 6 (MET) Sit to Stand (QC): 6 (MET) Rollin (MET) Roll Left to Right (QC): 6 (MET) Chair/Dfm-qm-Oivje Xfer(QC): 6 (MET) Car Transfer (QC): 6 (MET) Does the Patient Walk: Yes Gait (FIM): 6 (MT) Distance: SEE PT GOALS Walk 10 feet (QC): 6 (MET) Walk 10ft-Uneven Surface(QC): 6 (MET) Walk 50ft with 2 Turns (QC): 6 (MET) Walk 150 ft (QC): 6 (MET) Gait Level of Assist: 6 (MET) Gait Assistive Device: FWW Stairs (FIM): 5 (household exception) # of Steps: 4 1 Step (curb) (QC): 6 4 Steps (QC): 6 12 Steps (QC): 0 Picking up an Object (QC): 4 PT Plan Problem List Problem List: Activity Tolerance, Functional Strength, Safety, Balance, Gait, Transfer, Bed Mobility Treatment/Plan Treatment Plan: Continue Plan of Care Treatment Plan: Bed Mobility, Concurrent Therapy, Education, Functional Activity Camryn, Functional Strength, Group Therapy, Gait, Safety, Therapeutic Exercise, Transfers Treatment Duration: Jul 13, 2018 Frequency: Modified Program (IRF) (due to dialysis) Estimated Hrs Per Day: 1.5 hours per day Patient and/or Family Agrees t: Yes Safety Risks/Education Patient Education: Gait Training, Transfer Techniques, Correct Positioning, Safety Issues Teaching Recipient: Patient Teaching Methods: Demonstration, Discussion Response to Teaching: Reinforcement Needed Time/GCodes Time In: 1100 Time Out: 1130 Total Billed Treatment Time: 30 Total Billed Treatment 1 visit GT 15' EX 15' DONNELL MA PT Jul 24, 2018 11:40
[2018-07-24] MEDS: CHOLESTYRAMINE 4 GM (QUESTRAN LITE, PREVALITE) PKT PEG SCH ×4 (11:49→19:00)
--- NOTE | 2018-07-24 11:53 | Occupational Ther Daily Note ---
OT Current Status-Daily Note Subjective Pt alert, sitting EOB. Took over care from PT. No c/o pain. Agrees to therapy. During therapy after bending forward multiple times, pt n/v occurred. Mental Status/Objective Patient Orientation: Person, Place, Time, Situation Functional [place] Measure 0=Not Assessed/NA 4=Minimal Assistance 1=Total Assistance 5=Supervision or Setup 2=Maximal Assistance 6=Modified [place] 3=Moderate Assistance 7=Complete [place] Attachments: PEG Tube, Other-See Comments (PICC) ADL-Treatment Functional [place] Measure 0=Not Assessed/NA 4=Minimal Assistance 1=Total Assistance 5=Supervision or Setup 2=Maximal Assistance 6=Modified [place] 3=Moderate Assistance 7=Complete IndependenceIRFPAI Quality Coding Scale 6 Independent with activity with or without an assistive device 5 Patient requires set up or clean up by helper. Patient completes activity by themselves 4 Supervision or touching assist (CGA). [place] provide cues , steadying assist 3 The helper provides less than half the effort to complete the activity 2 The helper provides more than half the effort to complete the activity 1 Dependent. The helper does all the effort to complete an activity 7 Patient refused to complete or attempt activity 9 The patient did not perform the activity before the current illness or injury 88 Not attempted due to Medical conditions or safety concerns Lower Body Dressing (FIM): 4 (Pt uses AE for lower body dressing. Assist only when AFO used for donning shoe.) On/Off Footwear (QC): 4 (Using AE pt able to don/doff socks, doff shoes and don L shoe. Assist needed to don R shoe with AFO. Pt able to don R shoe without AFO by self using AE.) Other Treatment Pt able to remember two of 5 UE medium resistance theraband exercises. After visual and verbal cues pt able to complete with correct movements. Pt reminded that when completing exercises it is beneficial to slow movements down and resistance. Pt tolerated 2 sets 3 reps, was nauseous after exercises. After therapy, pt lying in bed with call light/phone in reach. All needs met in room. OT Short Term Goals Short Term Goals Time Frame: Jul 06, 2018 Grooming(FIM): 5 Bathing(FIM): 4 Upper Body Dressing(FIM): 4 Lower Body Dressing(FIM): 4 Toileting(FIM): 4 Transfers (B,C,W/C) (FIM): 5 (MET) Toilet/Commode Transfer(FIM): 5 Shower Transfer(FIM): 4 Additional Short Term Goals: 1-Demonstrate ADL Tasks, 2-Verbalize Understanding , 3-ImproveStrength/Camryn 1=Demonstrate adherence to instructed precautions during ADL tasks. 2=Patient will verbalize/demonstrate understanding of assistive devices/ modifications for ADL. 3=Patient will improve strength/tolerance for activity to enable patient to perform ADL's. OT Halfway Goals Halfway Goals Time Frame: Jul 20, 2018 Groomin (met) Oral Hygiene (QC): 4 (met) Bathing(FIM): 5 (met) Shower/Bathe Self (QC): 4 (met) Upper Body Dressing(FIM): 5 (met) Upper Body Dressing (QC): 4 (met) Lower Body Dressing(FIM): 5 (ongoing/not met) Lower Body Dressing (QC): 4 (met) On/Off Footwear (QC): 4 (met) Toileting(FIM): 5 (met) Toileting Hygiene (QC): 4 (met) Transfers (B,C,W/C) (FIM): 6 (met) Toilet/Commode Transfer(FIM): 6 (met) Toilet/Commode Transfer (QC): 6 (met) Shower Transfer(FIM): 5 (met) Additional Goals: 1-Demonstrate ADL Tasks, 2-Verbalize Understanding, 3- ImproveStrength/Camryn 1=Demonstrate adherence to instructed precautions during ADL tasks. 2=Patient will verbalize/demonstrate understanding of assistive devices/ modifications for ADL. 3=Patient will improve strength/tolerance for activity to enable patient to perform ADL's. OT Education/Plan Discharge Recommendations Plan/Recommendations: Continue POC Treatment Plan/Plan of Care Patient would benefit from OT for education, treatment and training to promote independence in ADL's, mobility, safety and/or upper extremity function for ADL' s. Plan of Care: ADL Retraining, Functional Mobility, Group Exercise/Act as Ind, UE Funct Exercise/Act Treatment Duration: Jul 20, 2018 Frequency: At least 5 of 7 days/Wk (IRF) Estimated Hrs Per Day: 1.5 hours per day Agreement: Yes Rehab Potential: Fair Time/GCodes Start Time: 11:30 Stop Time: 12:00 Total Time Billed (hr/min): 30 Billed Treatment Time 1 visit-ADL 1 (15 min) EX 1 (15 min) VIPUL KIRK Jul 24, 2018 11:53
--- NOTE | 2018-07-24 13:18 | D/C HH Face to Face Order ---
D/C Face to Face Orders Instructions for Patient Patient Instructions/FollowUp: Dr. Del Rosario Physician to follow Patient: Dr. Del Rosario Discharge Diet for Home: Tube Feeding (Nepro or Suplena. 6 cans per day, bolus during the day, continuous nocturnal in the evening), other diet (NPO) Patient Data-Allergies,Ht & Wt Patient Allergies: Coded Allergies: No Known Drug Allergies (Unverified , 12/12/15) Height (Feet): 5 Height (Inches): 11.00 Weight (Pounds): 156 Weight (Ounces): 10.0 Home Health Need/Face to Face Date of Face to Face: Jul 25, 2018 Clinical Findings: Generalized weakness and fatigue, Muscle weakness, Unsteady gait I have seen Pt dkfi-[id number]: Yes Discharged To: Home Diagnosis/Conditions: Disuse Myopathy Patient is Homebound due to: Adriana fall risk due to instabilty, Muscle weakness Homebound Status Due to the above stated illness, injury or surgical procedure (medical condition or diagnosis) and associated clinical findings, the patient is homebound because of his/her inability to leave home except with aid of a supportive device and/or person AND leaving the home requires a considerable and taxing effort or is medically contraindicated. Pt req the following assistanc: Walker Home Health Nursing Orders Home Health Services Order: Nursing Services, Can Line Examiner-Evaluate & Treat, Physical Therapy-Evaluate & Treat Rn to eval and treat coccyx wound and education for tube feeding administration. Home Health Infusion Therapy Line Type: PICC Site Location: Arm-Upper Type of Feeding Tube: PEJG Formula: Suplena Therapy Orders Therapy Orders: OT (must have SN or PT order), Physical Therapy Therapy Specific Orders: Eval assistive deivces, Teach enviro modifications/ safety, Gait training, Increase strength/endurance, Restore ROM Certify Stmt I certify that this patient is under my care and that I, a nurse practitioner or a physician; a magistrate assistant working with me, had a face to face encounter that - meets the physician face to face encounter requirements with this patient as dated. I personally scribed for FISH MACIAS MD ([facility]) on 07/24/18 at 13:18. Electronically submitted by rIish Randolph ([id number]). FISH MACIAS MD Jul 24, 2018 13:18
[2018-07-24] MEDS: ENOXAPARIN 30 MG/0.3 ML (LOVENOX) SYR SC SCH (15:18)
[2018-07-24] MEDS: PROMETHAZINE INJ 25 MG/ML (PHENERGAN) AMP IVP PRN (17:10)
[2018-07-24] MEDS: CATHETER FLUSH 10 ML SYR IV PRN (17:16)
[2018-07-24 17:38] VITALS: BP 186/98
[2018-07-24 18:40] VITALS: BP 177/97
[2018-07-24] MEDS: MELATONIN 3 MG TABLET PEG SCH (20:00)
[2018-07-24] MEDS: ZOLPIDEM 5 MG (AMBIEN) TAB PEG SCH (20:00)
[2018-07-24] MEDS ORDERED: CARV12.53 PEG (20:11)
[2018-07-24] MEDS ORDERED: BUPR100T15 PEG (20:11)
[2018-07-24] MEDS ORDERED: INSU100V5 SQ (20:11)
[2018-07-24] MEDS ORDERED: FOLI1TAB24 PEG (20:11)
[2018-07-24] MEDS ORDERED: DARB100V SC (20:11)
[2018-07-24] MEDS ORDERED: ACET325T49 PO (20:11)
[2018-07-24] MEDS ORDERED: SCOP1PAT11 TOP (20:11)
[2018-07-24] MEDS ORDERED: METO5SOL18 PEG (20:11)
[2018-07-24] MEDS ORDERED: PRD10T PEG (20:11)
[2018-07-24] MEDS ORDERED: CHOL4PAC3 PEG (20:11)
[2018-07-24] MEDS ORDERED: FAMO40OR2 PO (20:19)
[2018-07-25 05:37] VITALS: BP 168/87
[2018-07-25] MEDS: CATHETER FLUSH 10 ML SYR IV SCH (06:13)
[2018-07-25] MEDS: predniSONE 10 MG TAB PEG SCH (06:13)
[2018-07-25] MEDS: inSUlin ASPART (NovoLOG) 1 UNIT/0.01 ML (CHARGE PER UNIT) SC SCH (06:13)
--- NOTE | 2018-07-25 07:53 | Progress Note (SOAP) ---
Subjective Time Seen by a Provider: 07:49 Subjective/Events-last exam Patient to be discharged today. Patient wanting to go home. Patient voices no complaints Objective Exam Vital Signs Date Time Temp Pulse Resp B/P (MAP) Pulse Ox O2 Delivery O2 Flow Rate FiO2 07/25/18 05:37 98.4 91 16 168/87 (114) 99 Room Air 07/24/18 21:18 95 Room Air 07/24/18 20:00 Room Air 07/24/18 18:40 97 177/97 (123) 07/24/18 17:38 98.9 96 14 186/98 (127) 98 Room Air 07/24/18 10:49 Room Air 07/24/18 08:50 96 179/99 (125) 07/24/18 08:00 Room Air I & O 07/25/18 07:00 Intake Total 1770 ml Output Total 1525 ml Balance 245 ml Capillary Refill : Less Than 3 Seconds General Appearance: No Apparent Distress, WD/WN HEENT: Normal ENT Inspection Neck: Normal Inspection Respiratory: No Accessory Muscle Use, No Respiratory Distress Gastrointestinal: non tender, soft Results Lab Laboratory Tests 07/24/18 16:44: Glucometer 111H 07/25/18 05:31: Glucometer 154H Assessment/Plan Assessment/Plan Assess & Plan/Chief Complaint Disuse myopathy. Trach. PEG tube. Patient ready to be discharged today. Renal dialysis morning Clinical Quality Measures DVT/VTE Risk/Contraindication: Risk Factor Score Per Nursin RFS Level Per Nursing on Admit: 1=Low/No VTE PPX ARTHUR MUNOZ DO Jul 25, 2018 07:53
[2018-07-25] MEDS ORDERED: ONDANSETRON 4 MG (ZOFRAN) ORAL DISSOLVE TAB PO PRN (08:00)
[2018-07-25 08:05] VITALS: BP 146/71
[2018-07-25] MEDS: ONDANSETRON 4 MG/2 ML (SDV) Z0FRAN IVP PRN (08:08)
[2018-07-25] MEDS: FOLIC ACID 1 MG TAB PEG SCH (08:08)
[2018-07-25] MEDS: PANTOPRAZOLE 40 MG (PROTONIX) VIAL IV SCH (08:08)
[2018-07-25] MEDS: LACTOBACILLUS ACIDOPHILUS (PROBIOTIC) CAPSULE PEG SCH (08:09)
[2018-07-25] MEDS: METOCLOPRAMIDE 10MG/10ML ORAL SOL(REGLAN) UDC PEG SCH (08:09)
[2018-07-25] MEDS: buPROPion 100 MG (WELLBUTRIN) TAB PEG SCH (08:09)
[2018-07-25] MEDS: ALPRAZolam 0.5 MG (XANAX) TAB PEG PRN (08:09)
[2018-07-25] MEDS: CARVEDILOL 12.5 MG (COREG) TABLET PEG SCH (08:09)
[2018-07-25] MEDS ORDERED: ONDA4TAB10 PO ×2 (08:10→08:14)
[2018-07-25] MEDS: inSUlin DETERMIR 1 UNIT/0.01 ML (LEVEMIR) CHARGE PER UNIT SQ SCH (08:10)
[2018-07-25] MEDS: SCOPOLAMINE 1.5 MG (TRANSDERM-SCOP) PATCH TOP SCH (08:10)
--- NOTE | 2018-07-25 08:51 | Therapy Team Discharge Summary ---
Therapy Discharge Summary Discharge Recommendations Date of Discharge Therapy D/C Recommendations: Home w/ Family Support, Occupational Therapy Home Care, Scheduled Assistance Physical Therapy Pt admitted to inpatient rehab on 06/22/18 for disuse myopathy. Upon admission, pt was able to transfer supine <->sit w/ SBA, sit<->stand Cate, chair<->bed SBA , and car transfers SBA. Pt ambulated 150' w/ CGA using FWW (including 10' over uneven surface and 50' w/ 2 turns), had occasional scissoring gait. Pt was able to step up/down 1 step w/ Cate when ascending and CGA for descent. At this time , pt is mod I w/ all transfers, using bed rails for supine<->sit and FWW for stability upon standing. Pt ambulates mod I using FWW 250' w/ stable gait and good speed. Pt is able to ascends/descends 4 stairs x2 using both handrails, step-to pattern w/ SBA. Pt has made good progress met all of his [facility] goals w/ the exception of stairs. Pt is discharged from this facility and PT services at this time. Occupational Therapy Decreased Activ Tolerance, Decreased UE Strength, Dependent Transfers, Impaired Funct Balance, Impaired I ADL's, Impaired Self-Care Skills, Restricted Funct UE ROM PT Parts Specialist Goals Parts Specialist Goals PT Parts Specialist Goals Time Frame: Jul 13, 2018 Transfers (B,C,W/C) (FIM): 6 (MET) Roll Left to Right (QC): 6 (MET) Sit to Lying (QC): 6 (MET) Lying-Sitting on Side/Bed(QC): 6 (MET) Sit to Stand (QC): 6 (MET) Chair/Ybk-fx-Edqcf Xfer(QC): 6 (MET) Car Transfer (QC): 6 (MET) Does the Patient Walk: Yes Gait (FIM): 6 (MT) Distance: SEE PT GOALS Walk 10 feet (QC): 6 (MET) Walk 10ft-Uneven Surface(QC): 6 (MET) Walk 50ft with 2 Turns (QC): 6 (MET) Walk 150 ft (QC): 6 (MET) Gait Level of Assist: 6 (MET) Gait Assistive Device: FWW Stairs (FIM): 5 (household exception) # of Steps: 4 1 Step (curb) (QC): 6 4 Steps (QC): 6 12 Steps (QC): 0 Picking up an Object (QC): 4 OT Correction Goals Parts Specialist Goals Time Frame: Jul 20, 2018 Oral Hygiene (QC): 4 (met) Grooming(FIM): 5 (met) Bathing(FIM): 5 (met) Shower/Bathe Self (QC): 4 (met) Upper Body Dressing(FIM): 5 (met) Upper Body Dressing (QC): 4 (met) Lower Body Dressing(FIM): 5 (ongoing/not met) Lower Body Dressing (QC): 4 (met) On/Off Footwear (QC): 4 (met) Toileting(FIM): 5 (met) Toileting Hygiene (QC): 4 (met) Transfers (B,C,W/C) (FIM): 6 (met) Toilet/Commode Transfer(FIM): 6 (met) Toilet/Commode Transfer (QC): 6 (met) Shower Transfer(FIM): 5 (met) Additional Goals: 1-Demonstrate ADL Tasks, 2-Verbalize Understanding, 3- ImproveStrength/Camryn 1=Demonstrate adherence to instructed precautions during ADL tasks. 2=Patient will verbalize/demonstrate understanding of assistive devices/ modifications for ADL. 3=Patient will improve strength/tolerance for activity to enable patient to perform ADL's. Speech Parts Specialist Goals Correction Goals Pt will tolerate least restrictive diet without signs/symptoms of aspiration. Time Frame: 3-4 weeks DONNELL MA PT Jul 25, 2018 08:51
[2018-07-25 09:00] VITALS: BP 146/71
--- NOTE | 2018-07-25 09:57 | Therapy Team Discharge Summary ---
Therapy Discharge Summary Discharge Recommendations Date of Discharge 07-25-18 Therapy D/C Recommendations: Home w/ Family Support, Occupational Therapy Home Care, Scheduled Assistance Occupational Therapy Pt. seen by occupational therapy to increase overall strength with daily tasks. Pt. has met all goals. Pt. is discharging today to go home with family support. All needed equipment set up for pt. PT Acquisition Advisor Goals Group Home Goals PT Group Home Goals Time Frame: Jul 13, 2018 Transfers (B,C,W/C) (FIM): 6 (MET) Roll Left to Right (QC): 6 (MET) Sit to Lying (QC): 6 (MET) Lying-Sitting on Side/Bed(QC): 6 (MET) Sit to Stand (QC): 6 (MET) Chair/Ril-kz-Hiajp Xfer(QC): 6 (MET) Car Transfer (QC): 6 (MET) Does the Patient Walk: Yes Gait (FIM): 6 (MT) Distance: SEE PT GOALS Walk 10 feet (QC): 6 (MET) Walk 10ft-Uneven Surface(QC): 6 (MET) Walk 50ft with 2 Turns (QC): 6 (MET) Walk 150 ft (QC): 6 (MET) Gait Level of Assist: 6 (MET) Gait Assistive Device: FWW Stairs (FIM): 5 (household exception) # of Steps: 4 1 Step (curb) (QC): 6 4 Steps (QC): 6 12 Steps (QC): 0 Picking up an Object (QC): 4 OT Group Home Goals Group Home Goals Time Frame: Jul 20, 2018 Oral Hygiene (QC): 4 (met) Grooming(FIM): 5 (met) Bathing(FIM): 5 (met) Shower/Bathe Self (QC): 4 (met) Upper Body Dressing(FIM): 5 (met) Upper Body Dressing (QC): 4 (met) Lower Body Dressing(FIM): 5 (met) Lower Body Dressing (QC): 4 (met) On/Off Footwear (QC): 4 (met) Toileting(FIM): 5 (met) Toileting Hygiene (QC): 4 (met) Transfers (B,C,W/C) (FIM): 6 (met) Toilet/Commode Transfer(FIM): 6 (met) Toilet/Commode Transfer (QC): 6 (met) Shower Transfer(FIM): 5 (met) Additional Goals: 1-Demonstrate ADL Tasks, 2-Verbalize Understanding, 3- ImproveStrength/Camryn 1=Demonstrate adherence to instructed precautions during ADL tasks. 2=Patient will verbalize/demonstrate understanding of assistive devices/ modifications for ADL. 3=Patient will improve strength/tolerance for activity to enable patient to perform ADL's. Speech Group Home Goals Acquisition Advisor Goals Pt will tolerate least restrictive diet without signs/symptoms of aspiration. Time Frame: 3-4 weeks JOSE EMERSON OT Jul 25, 2018 09:57
--- NOTE | 2018-07-25 10:09 | D/C HH Face to Face Order ---
D/C Face to Face Orders Instructions for Patient Patient Instructions/FollowUp: Dr. Miguel Ángel Russell Physician to follow Patient: Dr. Del Rosario Discharge Diet for Home: Tube Feeding (Suplena or Nepro: 1 can at 0900,1300, 1700 and continuous run at 75ml/hr [id number]. flush w 30ml after each can), other diet (NPO) Patient Data-Allergies,Ht & Wt Patient Allergies: Coded Allergies: No Known Drug Allergies (Unverified , 12/12/15) Height (Feet): 5 Height (Inches): 11.00 Weight (Pounds): 155 Weight (Ounces): 11.2 Home Health Need/Face to Face Date of Face to Face: Jul 25, 2018 Clinical Findings: Generalized weakness and fatigue, Muscle weakness, Unsteady gait I have seen Pt [id number]: Yes Discharged To: Home Diagnosis/Conditions: Disuse Myopathy Patient is Homebound due to: Adriana fall risk due to instabilty, Muscle weakness Homebound Status Due to the above stated illness, injury or surgical procedure (medical condition or diagnosis) and associated clinical findings, the patient is homebound because of his/her inability to leave home except with aid of a supportive device and/or person AND leaving the home requires a considerable and taxing effort or is medically contraindicated. Pt req the following assistanc: Walker Home Health Nursing Orders Home Health Services Order: Nursing Services, Director Of Income Tax-Evaluate & Treat, Physical Therapy-Evaluate & Treat Rn to eval and treat coccyx wound BID with Silver Alegenate. Patient spouse is teachable and can manage, if RN can provide oversight to ensure healing appropriately and reduce risk of infection. RN to educate patient and family on trach care (Metal Todd) . Spouse is teachable. RN to visit patient on in evening of 07/25 to provide initial education and administration of nocturnal tube feeding. administration. [facility] Therapy Type of Feeding Tube: PE[facility]G Formula: Suplena Therapy Orders Therapy Orders: OT (must have SN or PT order), Physical Therapy Therapy Specific Orders: Eval assistive deivces, Teach enviro modifications/ safety, Gait training, Increase strength/endurance, Restore ROM Patient has outpatient dialysis on ,, schedule at 10[facility] certify that this patient is under my care and that I, a nurse practitioner or a physician; a assistant shift supervisor working with me, had a face to face encounter that - meets the physician face to face encounter requirements with this patient as dated. I personally scribed for FISH MACIAS MD ([facility]) on 07/25/18 at 10:09. Electronically submitted by Irish Randolph ([id number]). FISH MACIAS MD Jul 25, 2018 10:08
[2018-07-25] MEDS ORDERED: CHOL4PAC3 PEG (10:50)
== END 2018-07-25 09:00 | disposition home health service (06) | DRG 91 ==
PROVIDERS: ADMIT Physical Medicine & Rehabilitation; ATTEND Physical Medicine & Rehabilitation
DX: G72.81 Critical illness myopathy (principal); Z95.2 Presence of prosthetic heart valve; I12.0 Hypertensive chronic kidney disease with stage 5 chronic kidney disease or end stage renal disease; N18.6 End stage renal disease; E43 Unspecified severe protein-calorie malnutrition; L89.154 Pressure ulcer of sacral region, stage 4; J38.02 Paralysis of vocal cords and larynx, bilateral; B37.0 Candidal stomatitis; Z93.0 Tracheostomy status; Z93.1 Gastrostomy status; I25.10 Atherosclerotic heart disease of native coronary artery without angina pectoris; E11.649 Type 2 diabetes mellitus with hypoglycemia without coma; F41.9 Anxiety disorder, unspecified; E87.6 Hypokalemia; I48.91 Unspecified atrial fibrillation; I25.2 Old myocardial infarction; Z99.2 Dependence on renal dialysis; Z79.4 Long term (current) use of insulin; Z95.5 Presence of coronary angioplasty implant and graft
CPT/HCPCS: 36415; 36600; 71045; 80048; 82805; 82962; 83880; 85025; 94760; 94799

== ENCOUNTER → 2018-07-29 | Outpatient (CLI) | payer SELFPAY ==
[~2018-07-29] MED LIST changes: +ACET325T38 PO; +ACET325T49 PO; +ALBU2.5V4 NEB; +BALS60OI TP; +BUPR-168 PEG; +BUPR100T15 PEG; +CARV12.52 PO; +CARV12.53 PEG; +CHLO473M4 MM; +CHOL4PAC3 PEG; +DARB100V SC; +ENOX30DI4 SQ; +FAMO40OR2 PO; +FOLI1TAB24 PEG; +FOLI1TAB24 PO; +INSU100V16 SQ; +INSU100V5 SQ; +INSU100V6 SQ; +L.AC1CAP6 PEG; +LORA0.5T PO; +MELA3TAB PO; +METO10TA3 PO; +METO5SOL18 PEG; +NITR0.4T42 SL; +ONDA4TAB10 PO; +ONDA4TAB8 PEG; +PANT40VI IV; +POLY17PO6 PO; +PRD10T PEG; +PRED5TAB PO; +PROM25VI IVP; +PROT1PAC2 PEG; +SCOP1PAT11 TOP; +SCOP1PAT17 TD; +SUCR1ORA PEG; +ZOLP5TAB7 PO
== END ==
LOC: HH 16:57
PROVIDERS: ATTEND Internal Medicine
DX: R09.3 Abnormal sputum (principal)
CPT/HCPCS: 87070; 87205

== ENCOUNTER 2018-08-09 02:54 | Emergency (ER) | payer BC, OTHER ==
[~2018-08-09] VITALS: Ht 180.3 cm; Wt 66.5 kg
--- NOTE | 2018-08-09 03:25 | ED GI ---
General Stated Complaint: FEEDING TUBE ISSUES,ELEVATED BLOOD SUGAR Source of Information: Patient Exam Limitations: No Limitations History of Present Illness Date Seen by Provider: Aug 09, 2018 Time Seen by Provider: 03:10 Initial Comments Patient presents to ER by private conveyance with his spouse and chief complaint that he's had high blood sugar which is unusual for him and dysfunction of his J-tube. Ever since getting out of the hospital and in the rehabilitation does not require anything insulin for his blood sugars and he checks them in the morning and in the afternoon and they're usually at the highest 120 lowest 90. Last 2 days however he is had blood sugars in the 200 upwards of 335 last night at 10:00 range. He receives a constant feed of Nepro overnight and 3 bolus feeds during the day. His says when she puts medicines last night he flushed easily but then when she came to check on him tonight he had the bulb exposed of his J-tube and the tube appeared to be pulled out mostly. She says now no longer flushes nor withdraws easily. Tube was placed by [facility] surgery back in February. 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 He ambulates with a walker. He denies fever cough shortness of breath dysuria. Allergies and Home Medications Allergies Coded Allergies: No Known Drug Allergies (Unverified , 12/12/15) Home Medications Acetaminophen 325 Mg Tablet, 650 MG PO Q4H PRN for PAIN-MILD Prescribed by: FISH MACIAS on 07/24/182010 Bupropion HCl 100 Mg Tablet, 150 MG PEG BID Prescribed by: FISH MACIAS on 07/24/182010 Carvedilol 12.5 Mg Tablet, 12.5 MG PEG BID Prescribed by: FISH MACIAS on 07/24/182010 Cholestyramine/Aspartame 4 Gm Powd.pack, 4 GM PEG 1000,1300,1700,2200 Prescribed by: FISH MACIAS on 07/25/18 1050 Darbepoetin Carrington in Polysorbat 100 Mcg/1 Ml Vial, 100 MCG SC Mo@09 Prescribed by: FISH MACIAS on 07/24/182010 Famotidine 40 Mg/5 Ml Oral.susp, 40 MG PO BID Prescribed by: FISH MACIAS on 07/24/182018 Folic Acid 1 Mg Tablet, 1 MG PEG DAILY Prescribed by: FISH MACIAS on 07/24/182010 Insulin Determir 1,000 Units/10 Ml Soln, 5 UNIT SQ DAILY@0900 Prescribed by: FISH MACIAS on 07/24/182010 Metoclopramide HCl 10 Mg/10 Ml Solution, 5 MG PEG BID Prescribed by: FISH MACIAS on 07/24/182010 Ondansetron HCl 4 Mg Tablet, 4 MG PO Q4H PRN for NAUSEA/VOMITING Prescribed by: SADIQ SIERRA on 07/25/18 0814 Prednisone 10 Mg Tab, 15 MG PEG DAILY@0700 Prescribed by: FISH MACIAS on 07/24/182010 Scopolamine 1 Each Patch.td72, 1.5 MG TOP Q72H Prescribed by: FISH MACIAS on 07/24/182010 Patient Home Medication List Home Medication List Reviewed: Yes Review of Systems Review of Systems Constitutional: No chills, No fever, No malaise EENTM: No Blurred Vision, No Double Vision Respiratory: Denies Cough, Denies Shortness of Air Cardiovascular: Denies Chest Pain, Denies Edema Gastrointestinal: Denies Abdominal Pain, Denies Constipated, Denies Diarrhea; Nausea (chronic); Denies Vomiting Genitourinary: Denies Burning, Denies Discharge Musculoskeletal: No back pain, No joint pain Skin: No pruritus, No rash Psychiatric/Neurological: Denies Headache, Denies Numbness, Denies Paresthesia Past Fiamypj-Vkgupj-Qashta Hx Patient Social History Alcohol Use: Denies Use Recreational Drug Use: No Smoking Status: Former Smoker Type Used: Cigarettes Former Smoker, Quit: Dec 19, 2017 Recent Foreign Travel: No Contact w/Someone Who Travel: No Recent Hopitalizations: Yes Immunizations Up To Date Tetanus Booster (TDap): More than 5yrs Seasonal Allergies Seasonal Allergies: No Past Medical History Surgeries: Yes (LEFT INGUINAL HERNIA REPAIR, APPROX 2002) Tonsillectomy Respiratory: Yes (CAPPED MAGGIE TRACH) Cardiac: Yes Heart Murmur, Hypertension Neurological: No Genitourinary: Yes (DIALYSIS PATIENT) Renal Failure Gastrointestinal: Yes (PEG) Musculoskeletal: Yes (RLE BRACE) Foot Drop Endocrine: Yes Diabetes, Non-Insulin dep HEENT: No Cancer: No Psychosocial: Yes Depression Integumentary: Yes (SACRAL PRESSURE ULCER) Family Medical History Alzheimer's disease 19 MOTHER Diabetes mellitus 19 FATHER No Pertinent Family Hx, Hypertension Physical Exam Vital Signs Vital Signs - First Documented 08/09/18 03:00 Temp 96.0 Pulse 74 Resp 17 B/P (MAP) 144/83 (103) Capillary Refill : Height/Weight/BMI Height: 5'11.00" Weight: 155lbs. 11.2oz. 70.198154fi; 20.0 BMI Method:Stated General Appearance: no apparent distress, thin HEENT: PERRL/EOMI, normal ENT inspection, pharynx normal Neck: non-tender, other (tracheostomy with valve) Respiratory: lungs clear, normal breath sounds, no respiratory distress, no accessory muscle use Cardiovascular: normal peripheral pulses, regular rate, rhythm, no edema Peripheral Pulses: 2+ Radial Pulses (R), 2+ Radial Pulses (L) Gastrointestinal: normal bowel sounds, non tender, soft, other (there is a J- tube with a deflated bulb sitting just outside the opening of the gastrostomy and some dried secretions at the opening.) Neurologic/Psychiatric: alert, normal mood/affect, oriented x 3 Skin: normal color, warm/dry, other (no erythema, induration, area of fluctuance palpable) Focused Exam Lactate Level 08/09/18 03:14: Lactic Acid Level 1.31 Lactic Acid Level Laboratory Tests Test 08/09/18 03:14 Lactic Acid Level 1.31 MMOL/L (0.50-2.00) Progress/Results/Core Measures Results/Orders Lab Results Laboratory Tests Test 08/09/18 03:04 08/09/18 03:14 Range/Units Glucometer 289 H 70-110 MG/DL White Blood Count 9.1 4.3-11.0 10^3/uL Red Blood Count 2.95 L 4.35-5.85 10^6/uL Hemoglobin 10.1 L 13.3-17.7 G/DL Hematocrit 28 L 40-54 % Mean Corpuscular Volume 96 80-99 FL Mean Corpuscular Hemoglobin 34 25-34 PG Mean Corpuscular Hemoglobin Concent 36 32-36 G/DL Red Cell Distribution Width 15.4 H 10.0-14.5 % Platelet Count 92 L 130-400 10^3/uL Mean Platelet Volume 9.9 7.4-10.4 FL Neutrophils (%) (Auto) 86 H 42-75 % Lymphocytes (%) (Auto) 6 L 12-44 % Monocytes (%) (Auto) 7 0-12 % Eosinophils (%) (Auto) 1 0-10 % Basophils (%) (Auto) 0 0-10 % Neutrophils # (Auto) 7.8 1.8-7.8 X 10^3 Lymphocytes # (Auto) 0.5 L 1.0-4.0 X 10^3 Monocytes # (Auto) 0.7 0.0-1.0 X 10^3 Eosinophils # (Auto) 0.1 0.0-0.3 10^3/uL Basophils # (Auto) 0.0 0.0-0.1 10^3/uL Neutrophils % (Manual) 84 % Lymphocytes % (Manual) 5 % Monocytes % (Manual) 5 % Eosinophils % (Manual) 2 % Band Neutrophils 4 % Blood Morphology Comment NORMAL Sodium Level 134 L 135-145 MMOL/L Potassium Level 3.2 L 3.6-5.0 MMOL/L Chloride Level 93 L 98-107 MMOL/L Carbon Dioxide Level 29 21-32 MMOL/L Anion Gap 12 5-14 MMOL/L Blood Urea Nitrogen 40 H 7-18 MG/DL Creatinine 2.20 H 0.60-1.30 MG/DL Estimat Glomerular Filtration Rate 31 BUN/Creatinine Ratio 18 Glucose Level 307 H 70-105 MG/DL Lactic Acid Level 1.31 0.50-2.00 MMOL/L Calcium Level 9.3 8.5-10.1 MG/DL Corrected Calcium 9.9 8.5-10.1 MG/DL Total Bilirubin 1.0 0.1-1.0 MG/DL Aspartate Amino Transf (AST/SGOT) 22 5-34 U/L Alanine Aminotransferase (ALT/SGPT) 26 0-55 U/L Alkaline Phosphatase 123 40-136 U/L Total Protein 5.4 L 6.4-8.2 GM/DL Albumin 3.3 3.2-4.5 GM/DL My Orders Orders - TIARRA ESPINOSA Abdomen/Kub 1view (08/09/18 03:18) Chest 1 View, Ap/Pa Only (08/09/18 03:18) Cbc With Automated Diff (08/09/18 03:18) Comprehensive Metabolic Panel (08/09/18 03:18) Ua Culture If Indicated (08/09/18 03:18) Accucheck Stat ONCE (08/09/18 03:18) Blood Culture (08/09/18 03:18) Lactic Acid Analyzer (08/09/18 03:18) Ondansetron Injection (Zofran Injectio (08/09/18 03:30) Manual Differential (08/09/18 03:14) Ondansetron Injection (Zofran Injectio (08/09/18 03:27) Medications Given in ED Current Medications Medications Dose Ordered Sig/Anup Route Start Time Stop Time Status Last Admin Dose Admin Ondansetron HCl 4 mg ONCE ONCE IVP 08/09/18 03:30 08/09/18 03:31 DC 08/09/18 03:29 4 MG Vital Signs/I&O 08/09/18 08/09/18 03:00 04:28 Temp 96.0 96.0 Pulse 74 75 Resp 17 17 B/P (MAP) 144/83 (103) 133/76 Progress Progress Note : Time: 03:29 Progress Note The abdominal wall ostomy appears fairly benign despite the dried discharge. There is no obvious evidence of any abscess or subcutaneous fluid dissection. Patient is afebrile with a reasonable heart rate in the 70s and good blood pressure. Does not appear to be acutely ill. Plan to get a abdominal x-ray before and after removal of the J-tube and placement of a Villasenor catheter for placeholder. We will not replace the original J-tube as the bulb does not appear to hold any pressure. We'll then recommended he follow up with the surgeon who placed it at [facility] to have it replaced. Since he's having some labile blood sugars 229 presently we will check urine and labs and a chest x- ray looking for evidence of infection or why he might he having labile blood sugars. Diagnostic Imaging Diagonstic Imaging: Xray Plain Films/CT/US/NM/MRI: abdomen (1 view KUB) Comments Villasenor catheter in position in the stomach via the gastrostomy. Unremarkable bowel gas pattern Reviewed: Reviewed by Me Diagonstic Imaging: Xray Plain Films/CT/US/NM/MRI: chest (1 view) Comments No acute cardiopulmonary processes noted. Sternotomy wires, right sided PICC line in good position, left-sided double-lumen dialysis catheter in good position. Reviewed: Reviewed by Me Departure Impression Primary Impression: Gastrostomy tube dysfunction Additional Impression: Hyperglycemia due to type 2 diabetes mellitus Qualified Codes: E11.65 - Type 2 diabetes mellitus with hyperglycemia Disposition: HOME, SELF-CARE Condition: Improved Departure-Patient Inst. Decision time for Depature: 04:39 Referrals: KEILA TUCKER DO (PCP/Family) Primary Care Physician Patient Instructions: Gastrostomy, Permanent and Temporary (DC) Add. Discharge Instructions: Keep the site clean with regular soap and water and you may apply a thin layer of Vaseline under some gauze to keep the site clean and dry. This morning after your surgeon's clinic opens you should call them and request an appointment to have a J-tube replaced. Continue feeds as appropriate and crush all medications before getting through the Villasenor catheter G-tube. Make a follow-up appointment with your primary care provider to discuss your blood sugars. Ask your primary doctor's office to set up a urinalysis outpatient. Copy Copies To 1: KEILA TUCKER TITUS J Aug 09, 2018 03:25
[2018-08-09 03:26] LABS: BASOPHILS % (AUTO) 0 % (0-10); EOSINOPHILS # (AUTO) 0.1 10^3/uL (0.0-0.3); EOSINOPHILS % (AUTO) 1 % (0-10); HEMATOCRIT 28 % (40-54); HEMOGLOBIN 10.1 G/DL (13.3-17.7); LYMPHOCYTES # (AUTO) 0.5 X 10^3 (1.0-4.0); LYMPHOCYTES % (AUTO) 6 % (12-44); MEAN CORPUSCULAR HEMOGLOBIN 34 PG (25-34); MEAN CORPUSCULAR HGB CONC 36 G/DL (32-36); MEAN CORPUSCULAR VOLUME 96 FL (80-99); MEAN PLATELET VOLUME 9.9 FL (7.4-10.4); MONOCYTES # (AUTO) 0.7 X 10^3 (0.0-1.0); MONOCYTES % (AUTO) 7 % (0-12); NEUTROPHILS # (AUTO) 7.8 X 10^3 (1.8-7.8); NEUTROPHILS % (AUTO) 86 % (42-75); PLATELET COUNT 92 10^3/uL (130-400); RED BLOOD COUNT 2.95 10^6/uL (4.35-5.85); RED CELL DISTRIBUTION WIDTH 15.4 % (10.0-14.5); WHITE BLOOD COUNT 9.1 10^3/uL (4.3-11.0)
[2018-08-09] MEDS ORDERED: ONDANSETRON 4 MG/2 ML (SDV) Z0FRAN ONE (03:27)
[2018-08-09] MEDS ORDERED: ONDANSETRON 4 MG/2 ML (SDV) Z0FRAN IVP ONE (03:30)
[2018-08-09 03:42] LABS: ALBUMIN 3.3 GM/DL (3.2-4.5); CALCIUM 9.3 MG/DL (8.5-10.1); CREATININE SERUM 2.2 MG/DL (0.60-1.30); POTASSIUM 3.2 MMOL/L (3.6-5.0); TOTAL PROTEIN 5.4 GM/DL (6.4-8.2)
[2018-08-09 03:48] LABS: BAND NEUTROPHILS 4 %; EOSINOPHILS % (MANUAL) 2 %; LYMPHOCYTES % (MANUAL) 5 %; MONOCYTES % (MANUAL) 5 %; NEUTROPHILS % (MANUAL) 84 %; RBC MORPH NORMAL
[2018-08-09 04:46] VITALS: BP 145/90
--- NOTE | 2018-08-09 07:20 | Diagnostic Imaging Report ---
INDICATION: Gastric tube placement. FINDINGS: There is a tube overlying the mid abdomen. Bowel gas pattern is normal with stool and gas noted throughout the colon. There is no organomegaly. No pathologic calcification. IMPRESSION: There is a tube overlying the mid abdomen. Dictated by: Dictated on workstation # [id number]
--- NOTE | 2018-08-09 07:34 | Diagnostic Imaging Report ---
INDICATION: Line placement. Comparison with 06/23/2018. FINDINGS: Tracheostomy unchanged in position overlying the tracheal shadow. Right PICC line and left double-lumen catheter are in good position with tip at the cavoatrial junction. The lungs are well-aerated and clear. Median sternotomy changes present. The heart is not enlarged. There is no pulmonary edema. No pneumothorax or pleural effusions. IMPRESSION: Stable portable chest with tubes and lines remain in good position. Dictated by: Dictated on workstation # [id number]
== END 2018-08-09 04:47 | disposition home or self-care (01) ==
LOC: EDUNIT# 02:54 → ER 02:55
DX: K94.23 Gastrostomy malfunction (principal); E11.65 Type 2 diabetes mellitus with hyperglycemia; E11.22 Type 2 diabetes mellitus with diabetic chronic kidney disease; I12.0 Hypertensive chronic kidney disease with stage 5 chronic kidney disease or end stage renal disease; N18.6 End stage renal disease; F32.9 Major depressive disorder, single episode, unspecified; Z99.2 Dependence on renal dialysis; Z79.4 Long term (current) use of insulin; Z79.52 Long term (current) use of systemic steroids; Z87.820 Personal history of traumatic brain injury; Z87.891 Personal history of nicotine dependence; Z90.89 Acquired absence of other organs
CPT/HCPCS: 36415; 71045; 74018; 80053; 82962; 83605; 85007; 85027; 87040; 96374

== ENCOUNTER 2018-10-21 19:05 | Inpatient (IN) | payer BC ==
[~2018-10-21] VITALS: Ht 180.3 cm; Wt 76.7 kg
[2018-10-21] MEDS ORDERED: NS IV 1000 ML 1,000 ML IV ONE (19:44)
[2018-10-21] MEDS ORDERED: PANTOPRAZOLE 40 MG (PROTONIX) VIAL IV STA (19:44)
[2018-10-21] MEDS ORDERED: ONDANSETRON 4 MG/2 ML (SDV) Z0FRAN IVP ONE (19:45)
--- NOTE | 2018-10-21 19:45 | NUR ---
pt unable to void at this time.
[2018-10-21 20:05] LABS: BASOPHILS % (AUTO) 0 % (0-10); EOSINOPHILS # (AUTO) 0.1 10^3/uL (0.0-0.3); EOSINOPHILS % (AUTO) 1 % (0-10); HEMATOCRIT 33 % (40-54); HEMOGLOBIN 11.1 G/DL (13.3-17.7); LYMPHOCYTES # (AUTO) 0.7 X 10^3 (1.0-4.0); LYMPHOCYTES % (AUTO) 7 % (12-44); MEAN CORPUSCULAR HEMOGLOBIN 34 PG (25-34); MEAN CORPUSCULAR HGB CONC 34 G/DL (32-36); MEAN CORPUSCULAR VOLUME 100 FL (80-99); MEAN PLATELET VOLUME 10.8 FL (7.4-10.4); MONOCYTES # (AUTO) 1.1 X 10^3 (0.0-1.0); MONOCYTES % (AUTO) 11 % (0-12); NEUTROPHILS # (AUTO) 7.7 X 10^3 (1.8-7.8); NEUTROPHILS % (AUTO) 81 % (42-75); PLATELET COUNT 89 10^3/uL (130-400); RED CELL DISTRIBUTION WIDTH 15.3 % (10.0-14.5); WHITE BLOOD COUNT 9.6 10^3/uL (4.3-11.0)
[2018-10-21 20:21] LABS: EOSINOPHILS % (MANUAL) 1 %; INR 1.2 (0.8-1.4); LYMPHOCYTES % (MANUAL) 6 %; MONOCYTES % (MANUAL) 9 %; NEUTROPHILS % (MANUAL) 81 %; PROTHROMBIN TIME PATIENT 15.3 SEC (12.2-14.7)
[2018-10-21 20:22] LABS: ANISOCYTOSIS SLIGHT; BAND NEUTROPHILS 3 %
[2018-10-21 20:25] LABS: ALBUMIN 3.7 GM/DL (3.2-4.5); BILIRUBIN,TOTAL 1.2 MG/DL (0.1-1.0); CALCIUM 9.5 MG/DL (8.5-10.1); CREATININE SERUM 3.23 MG/DL (0.60-1.30); POTASSIUM 3.8 MMOL/L (3.6-5.0); TOTAL PROTEIN 6.1 GM/DL (6.4-8.2)
--- NOTE | 2018-10-21 20:34 | Diagnostic Imaging Report ---
PROCEDURE: CT chest, abdomen and pelvis without contrast. TECHNIQUE: Multiple contiguous axial images were obtained through the chest, abdomen and pelvis without the use of intravenous contrast. INDICATION: Weakness, vomiting blood, history of port for dialysis, hernia repair. COMPARISON: Radiographs from 08/09/2018. FINDINGS: CT chest: The heart is normal in size. There is no pericardial effusion. Aortic valve prosthesis is noted. There is coronary and aortic atherosclerosis. No mediastinal adenopathy is seen. There is a left jugular central line, with the tip in the right atrium. The lungs demonstrate motion artifact. There are mild tree-in-bud opacities in the anterior right upper lobe. There is a small 4 mm nodule in the right lower lobe (image 35 series 2). No pneumothorax or pleural effusion is seen. No acute osseous abnormality is seen in the thorax. There is extensive soft tissue air in the left upper extremity on the neurovascular bundle. CT abdomen/pelvis: No focal hepatic lesions are seen. There is mild splenomegaly. The pancreas appears normal. The adrenal glands are normal. The kidneys demonstrate no hydronephrosis or calculi. The bowel loops are nondistended without findings of obstruction. A small amount of free fluid is seen in the pelvis. The appendix is normal. There is thickening of the gastric wall. Air is seen in the nondependent stomach as well. The urinary bladder is mildly distended. No acute osseous abnormality is seen. IMPRESSION: 1. Mild nodular tree in bud opacities in the right upper lobe, may be due to a bronchiolitis or possibly aspiration. 2. Small pulmonary nodule in the right lower lobe, consider followup CT chest in 12 months. 3. The tip of the left jugular line is in the right atrium. There is moderate soft tissue air in the left upper extremity along the neurovascular bundle. 4. Gastric wall thickening consistent with gastritis. Questionable air in the nondependent wall raises the possibility of emphysematous gastritis. 5. Mild splenomegaly. 6. Small amount of ascites. Dictated by: Dictated on workstation # [id number]
--- NOTE | 2018-10-21 20:37 | NUR ---
pt denies being able to void at this time.
[2018-10-21 22:00] VITALS: BP 135/71
[2018-10-21] MEDS ORDERED: CATHETER FLUSH 10 ML SYR IV PRN (22:00)
[2018-10-21] MEDS: NS IV 1000 ML 1,000 ML IV SCH (22:00)
[2018-10-21 22:15] VITALS: BP 135/65
[2018-10-21 22:30] VITALS: BP 136/71
[2018-10-21 22:45] VITALS: BP 123/75
[2018-10-21 23:00] VITALS: BP 155/93
[2018-10-21 23:30] VITALS: BP 155/93
[2018-10-22] VITALS (12 sets, daily range): BP systolic 105–164; BP diastolic 55–96
[2018-10-22 03:37] LABS: BASOPHILS % (AUTO) 0 % (0-10); EOSINOPHILS # (AUTO) 0.1 10^3/uL (0.0-0.3); EOSINOPHILS % (AUTO) 1 % (0-10); HEMATOCRIT 30 % (40-54); HEMOGLOBIN 10.2 G/DL (13.3-17.7); LYMPHOCYTES # (AUTO) 0.8 X 10^3 (1.0-4.0); LYMPHOCYTES % (AUTO) 11 % (12-44); MEAN CORPUSCULAR HEMOGLOBIN 34 PG (25-34); MEAN CORPUSCULAR HGB CONC 34 G/DL (32-36); MEAN CORPUSCULAR VOLUME 100 FL (80-99); MEAN PLATELET VOLUME 9.5 FL (7.4-10.4); MONOCYTES # (AUTO) 0.9 X 10^3 (0.0-1.0); MONOCYTES % (AUTO) 13 % (0-12); NEUTROPHILS # (AUTO) 5.6 X 10^3 (1.8-7.8); NEUTROPHILS % (AUTO) 75 % (42-75); RED BLOOD COUNT 2.98 10^6/uL (4.35-5.85); WHITE BLOOD COUNT 7.5 10^3/uL (4.3-11.0)
[2018-10-22 03:48] LABS: PLATELET COUNT 11 10^3/uL (130-400)
--- NOTE | 2018-10-22 03:54 | NUR ---
Dr. Sutton notified of platelet level of 11, orders received to infuse 1 unit of platelets.
[2018-10-22 04:02] LABS: ALANINE AMINOTRANSFERASE < 6 U/L (0-55); ALBUMIN 3.3 GM/DL (3.2-4.5); ALKALINE PHOSPHATASE 98 U/L (40-136); BILIRUBIN,TOTAL 0.9 MG/DL (0.1-1.0); BUN/CREATININE RATIO 9; CALCIUM 9.1 MG/DL (8.5-10.1); CARBON DIOXIDE 23 MMOL/L (21-32); CHLORIDE 101 MMOL/L (98-107); CREATININE SERUM 3.55 MG/DL (0.60-1.30); GFR ESTIMATED 18; GLUCOSE 71 MG/DL (70-105); POTASSIUM 3.7 MMOL/L (3.6-5.0); SODIUM 138 MMOL/L (135-145); TOTAL PROTEIN 5.2 GM/DL (6.4-8.2)
[2018-10-22] MEDS: CATHETER FLUSH 10 ML SYR IV SCH ×4 (06:07→21:01)
[2018-10-22] MEDS: inSUlin ASPART (NovoLOG) 1 UNIT/0.01 ML (CHARGE PER UNIT) SC SCH ×4 (06:08→21:01)
--- NOTE | 2018-10-22 07:15 | ED GI ---
General Chief Complaint: Coughing up blood Stated Complaint: GASTIRITS WITH COFFEE-GROUND EMESIS, IDDM Nursing Triage Note: HAD SURGERY IN AT THE [facility] ON HIS FISTULA ET PT HAS BEEN VOMITING. EDWIGE PT VOMITED COFFEE GROUND LOOKING VOMIT ET IT TESTED POSTIVE FOR BLOOD. PT HGB YESTERDAY 11.4 Sepsis Screen: No Definite Risk Source of Information: Patient, Spouse History of Present Illness Date Seen by Provider: Oct 21, 2018 Time Seen by Provider: 19:30 Initial Comments PT ARRIVES VIA POV FROM HOME PT STATES HE HAS HAD COFFEE-GROUND EMESIS SINCE YESTERDAY PT STATES HE "VOMITS ALL THE TIME" SEVERAL TIMES A DAY FOR SEVERAL MONTHS. HAS VOMITED X 4-6 TIMES TODAY AND YESTERDAY AND ALL HAVE BEEN COFFEE-GROUND-- HAS NOT HAD THIS BEFORE NO ABDOMINAL PAIN HAD DIARRHEA X 1 THIS AM, NORMAL COLOR. NO FEVER NO URINARY SYMPTOMS--PT HAS ESRD AND IS ON HEMODIALYSIS VIA LEFT CENTRAL LINE GETS DIALYSIS //TUE AND HAD DIALYSIS THIS AM (TUESDAY) PT HAD OUTPATIENT SURGERY AT [facility] IN YESTERDAY FOR REVISION OF LEFT ARM AV FISTULA/DIALYSIS GRAFT--WAS INITIALLY PLACED IN AUGUST, BUT HAS NOT BEEN USED YET, HAS HAD ONGOING PAIN AND TINGLING IN LEFT HAND SINCE FIRST SURGERY. PT IS NOT ON ASPIRIN OR ANY BLOOD THINNERS PT HAS HAD AORTIC VALVE REPLACEMENT WITH PIG VALVE DUE TO ENDOCARDITIS, WHICH RESULTED FROM GLUTEAL ABSCESS AND SUBSEQUENT SEPSIS, AND THEN MULTIORGAN FAILURE WITH CARDIAC ARREST DUE TO CO, AND ALSO DEVELOPED ATRIAL FIBRILLATION PT HAD PEG TUBE AND LATER REMOVAL PT ALSO HAD A TRACH AND LATER REMOVAL PT DEVELOPED RENAL FAILURE POST OP AND IS NOW ON DIALYSIS PT HAD STAGE 4 PRESSURE ULCER ON BUTTOCKS ALL OF THIS STARTED IN DECEMBER 2017, WAS ON VENTILATOR IN FEBRUARY AND HAS BEEN ON PREDNISONE SINCE THEN --PT AND NOT SURE WHY HE HAS BEEN ON PREDNISONE, BUT HAS GRADUALLY BEEN WEANED DOWN FROM 50 MG DAILY, AND IS NOW ON 5 MG DAILY PCP: DR. HONEYCUTT CASHIER PAYMENTS RECEIVED: DR. 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 Allergies and Home Medications Allergies Coded Allergies: No Known Drug Allergies (Unverified , 12/12/15) Home Medications Acetaminophen 325 Mg Tablet, 650 MG PO Q4H PRN for PAIN-MILD Prescribed by: FISH MACIAS on 07/24/182010 Bupropion HCl 100 Mg Tablet, 150 MG PEG BID Prescribed by: FISH MACIAS on 07/24/182010 Carvedilol 12.5 Mg Tablet, 12.5 MG PEG BID Prescribed by: FISH MACIAS on 07/24/182010 Cholestyramine/Aspartame 4 Gm Powd.pack, 4 GM PEG 1000,1300,1700,2200 Prescribed by: FISH MACIAS on 07/25/18 1050 Darbepoetin [place] in [place]ysorbat 100 Mcg/1 Ml Vial, 100 MCG SC Mo@09 Prescribed by: FISH MACIAS on 07/24/182010 Famotidine 40 Mg/5 Ml Oral.susp, 40 MG PO BID Prescribed by: FISH MACIAS on 07/24/182018 Folic Acid 1 Mg Tablet, 1 MG PEG DAILY Prescribed by: FISH MACIAS on 07/24/182010 Insulin Determir 1,000 Units/10 Ml Soln, 5 UNIT SQ DAILY@0900 Prescribed by: FISH MACIAS on 07/24/182010 Metoclopramide HCl 10 Mg/10 Ml Solution, 5 MG PEG BID Prescribed by: FISH MACIAS on 07/24/182010 Ondansetron HCl 4 Mg Tablet, 4 MG PO Q4H PRN for NAUSEA/VOMITING Prescribed by: SADIQ SIERRA on 07/25/18 0814 Prednisone 10 Mg Tab, 15 MG PEG DAILY@0700 Prescribed by: FISH MACIAS on 07/24/182010 Scopolamine 1 Each Patch.td72, 1.5 MG TOP Q72H Prescribed by: FISH MACIAS on 07/24/182010 Patient Home Medication List Home Medication List Reviewed: Yes Review of Systems Review of Systems Constitutional: No chills, No diaphoresis, No fever Respiratory: No Symptoms Reported; Denies Cough, Denies Shortness of Air Cardiovascular: No Symptoms Reported; Denies Chest Pain Gastrointestinal: See HPI; Denies Abdominal Pain; Diarrhea, Nausea, Poor Appetite, Vomiting Genitourinary: See HPI Musculoskeletal: no symptoms reported Skin: no symptoms reported Psychiatric/Neurological: No Symptoms Reported, Pre-Existing Deficit ( NEUROPATHY) Endocrine: No Symptoms Reported Hematologic/Lymphatic: See HPI Past Ykworin-Lbzqmc-Tlzzjh Hx Patient Social History Alcohol Use: Denies Use Recreational Drug Use: No Smoking Status: Former Smoker Type Used: Cigarettes Former Smoker, Quit: Dec 19, 2017 Recent Foreign Travel: No Contact w/Someone Who Travel: No Recent Infectious Disease Expo: No Recent Hopitalizations: Yes Immunizations Up To Date Tetanus Booster (TDap): More than 5yrs Date of Pneumonia Vaccine: Sep 16, 2018 Date of Influenza Vaccine: Sep 16, 2018 Seasonal Allergies Seasonal Allergies: No Past Medical History Surgeries: Yes (LEFT INGUINAL HERNIA REPAIR, APPROX 2002; GLUTEAL ABSCESS I&D 12/2017; CARDIAC CATH AND STENT; AORTIC VALVE REPLACEMENT; TRACH PLACED/REMOVED ; PEG TUBE/REMOVED;MEDIASTINAL EXPLORATION AND HEMATOMA EVACUATION; LEFT CENTRAL LINE FOR HEMODIALYSIS; LEFT ARM AV FISTULA/DIALYSIS GRAFT 08/2018 WITH REVISION 10/20/17) Abdominal, Cardiac, Coronary Stent, Dialysis, Tonsillectomy, Tracheostomy, Valve Replacement, Vascular Surgery Respiratory: Yes (RESPIRATORY FAILURE DUE TO SEPSIS AND SUBSEQUENT CARDIOPULMONARY ARREST AND EVENTUAL TRACH STARTING IN 02/2018--LATER REMOVED. ) Cardiac: Yes (ENDOCARDITIS FROM SEPSIS FROM GLUTEAL ABSCESS; SUBSEQUENT ATRIAL FIBRILLATION AND CO WITH CARDIOPULMONARY ARREST--REPORTEDLY CODED 6-7 TIMES; MULTIORGAN FAILURE; S/P AORTIC VALVE REPLACEMENT WITH PIG VALVE;) Atrial Fibrillation, Endocarditis, Heart Murmur, Hypertension Neurological: Yes (CODED 6-7 TIMES FROM SEPSIS/MULTIORGAN FAILURE AND HAD SUBSEQUENT BRAIN INJURY) Traumatic Brain Injury Genitourinary: Yes (DIALYSIS PATIENT) Renal Failure, Dialysis Gastrointestinal: Yes (S/P PEG TUBE AND REMOVAL;CHRONIC NAUSEA/VOMITING) Gastroesophageal Reflux, Gastrointestinal Bleed Musculoskeletal: Yes (RLE BRACE; IMPAIRED AMBULATION SECONDARY TO ALL OF THE ABOVE) Foot Drop Endocrine: Yes Diabetes, Non-Insulin dep HEENT: Yes (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 11.2oz. 76.270483ln; 20.0 BMI Method:Stated General Appearance: no apparent distress, thin, other (CHRONICALLY ILL APPEARING) Neck: normal inspection Respiratory: normal breath sounds, no respiratory distress, no accessory muscle use Cardiovascular: regular rate, rhythm, systolic murmur (FAINT) Gastrointestinal: normal bowel sounds, non tender, soft Extremities: normal inspection, normal capillary refill Back: no CVA tenderness Neurologic/Psychiatric: supervisor cytogenetic laboratory II-XII nml as tested, no motor/sensory deficits, alert, oriented x 3, other (FLAT AFFECT) Skin: warm/dry, pallor Progress/Results/Core Measures Results/Orders Lab Results Laboratory Tests Test 10/21/18 19:50 Range/Units White Blood Count 9.6 4.3-11.0 10^3/uL Red Blood Count 3.30 L 4.35-5.85 10^6/uL Hemoglobin 11.1 L 13.3-17.7 G/DL Hematocrit 33 L 40-54 % Mean Corpuscular Volume 100 H 80-99 FL Mean Corpuscular Hemoglobin 34 25-34 PG Mean Corpuscular Hemoglobin Concent 34 32-36 G/DL Red Cell Distribution Width 15.3 H 10.0-14.5 % Platelet Count 89 L 130-400 10^3/uL Mean Platelet Volume 10.8 H 7.4-10.4 FL Neutrophils (%) (Auto) 81 H 42-75 % Lymphocytes (%) (Auto) 7 L 12-44 % Monocytes (%) (Auto) 11 0-12 % Eosinophils (%) (Auto) 1 0-10 % Basophils (%) (Auto) 0 0-10 % Neutrophils # (Auto) 7.7 1.8-7.8 X 10^3 Lymphocytes # (Auto) 0.7 L 1.0-4.0 X 10^3 Monocytes # (Auto) 1.1 H 0.0-1.0 X 10^3 Eosinophils # (Auto) 0.1 0.0-0.3 10^3/uL Basophils # (Auto) 0.0 0.0-0.1 10^3/uL Neutrophils % (Manual) 81 % Lymphocytes % (Manual) 6 % Monocytes % (Manual) 9 % Eosinophils % (Manual) 1 % Band Neutrophils 3 % Polychromasia NA Anisocytosis SLIGHT Macrocytosis SLIGHT Prothrombin Time 15.3 H 12.2-14.7 SEC INR Comment 1.2 0.8-1.4 Activated Partial Thromboplast Time 39 H 24-35 SEC Sodium Level 139 135-145 MMOL/L Potassium Level 3.8 3.6-5.0 MMOL/L Chloride Level 96 L 98-107 MMOL/L Carbon Dioxide Level 29 21-32 MMOL/L Anion Gap 14 5-14 MMOL/L Blood Urea Nitrogen 28 H 7-18 MG/DL Creatinine 3.23 H 0.60-1.30 MG/DL Estimat Glomerular Filtration Rate 20 BUN/Creatinine Ratio 9 Glucose Level 92 70-105 MG/DL Calcium Level 9.5 8.5-10.1 MG/DL Corrected Calcium 9.7 8.5-10.1 MG/DL Magnesium Level 2.0 1.8-2.4 MG/DL Total Bilirubin 1.2 H 0.1-1.0 MG/DL Aspartate Amino Transf (AST/SGOT) 17 5-34 U/L Alanine Aminotransferase (ALT/SGPT) 8 0-55 U/L Alkaline Phosphatase 112 40-136 U/L Total Protein 6.1 L 6.4-8.2 GM/DL Albumin 3.7 3.2-4.5 GM/DL Amylase Level 46 25-125 U/L Lipase 25 8-78 U/L My Orders Orders - JEYSON AGUILAR DO Saline Lock/Iv-Start (10/21/18 19:44) Monitor-Rhythm Ecg Trace Only (10/21/18 19:44) Amylase (10/21/18 19:44) Cbc With Automated Diff (10/21/18 19:44) Comprehensive Metabolic Panel (10/21/18 19:44) Lipase (10/21/18 19:44) Magnesium (10/21/18 19:44) Protime With Inr (10/21/18 19:44) Partial Thromboplastin Time (10/21/18 19:44) Ua Culture If Indicated (10/21/18 19:44) Saline Lock/Iv-Start (10/21/18 19:44) Ns Iv 1000 Ml (Sodium Chloride 0.9%) (10/21/18 19:44) Ondansetron Injection (Zofran Injectio (10/21/18 19:45) Pantoprazole Injection (Protonix Injecti (10/21/18 19:44) Ct Chest/Abdomen/Pelvis Wo (10/21/18 19:44) Manual Differential (10/21/18 19:50) Medications Given in ED Vital Signs/I&O 10/21/18 19:09 Temp 97.5 Pulse 101 Resp 18 B/P (MAP) 161/78 (105) Pulse Ox 100 O2 Delivery Room Air 10/22/18 00:00 Intake Total 1000 ml Balance 1000 ml Blood Pressure Mean: 72 Progress Progress Note : Progress Note NO VOMITING DURING ER STAY VITALS TABLE NO DETERIORATION IN PT'S CONDITION DURING ER STAY Diagnostic Imaging Comments CT ABDOMEN/PELVIS--GASTRITIS,SMALL FOCAL AREA OF GAS IN MUCOSAL LINING OF STOMACH, BUT NO FREE AIR--PER RADIOLOGIST REPORT @ 2037 Reviewed: Reviewed by Me Departure Communication (Admissions) 2039--SPOKE WITH DR. ANDREW --ACCEPTS PT FOR ADMIT WITH HOSPITALIST CONSULT 2047--SPOKE WITH DR. SCALES, HOSPITALIST, WILL SEE PT IN CONSULT. Impression Primary Impression: GASTRITIS WITH COFFEE GROUND EMESIS Additional Impressions: S/P FEEDING TUBE REMOVAL Long-term current use of steroids IDDM (insulin dependent diabetes mellitus) ESRD (end stage renal disease) on dialysis Disposition: ADMITTED INPATIENT Condition: Stable Admissions Decision to Admit Reason: Admit from ER (General) Decision to Admit/Date: Oct 21, 2018 Time/Decision to Admit Time: 20:40 Departure-Patient Inst. Referrals: KEILA TUCKER DO (PCP) Primary Care Physician JEYSON AGUILAR DO Oct 22, 2018 07:15
[2018-10-22 07:19] LABS: BILIRUBIN,URINE NEGATIVE (NEGATIVE); CLARITY,URINE SLIGHTLY CLOUDY; COLOR,URINE YELLOW; GLUCOSE, URINE (UA) NEGATIVE (NEGATIVE); KETONES,URINE 1+ (NEGATIVE); LEUKOCYTE ESTERASE ,URINE 3+ (NEGATIVE); NITRITE,URINE POSITIVE (NEGATIVE); PH,URINE 8 (5-9); PROTEIN,URINE 3+ (NEGATIVE); UROBILINOGEN,URINE NORMAL (NORMAL)
[2018-10-22 07:28] LABS: BACTERIA,URINE MODERATE /HPF; WBC,URINE TNTC /HPF
[2018-10-22] MEDS ORDERED: ONDANSETRON 4 MG/2 ML (SDV) Z0FRAN ONE (08:13)
[2018-10-22] MEDS: ONDANSETRON 4 MG/2 ML (SDV) Z0FRAN IVP PRN ×3 (08:22→21:00)
[2018-10-22 09:30] LABS: BASOPHILS % (AUTO) 0 % (0-10); EOSINOPHILS # (AUTO) 0.1 10^3/uL (0.0-0.3); EOSINOPHILS % (AUTO) 1 % (0-10); HEMATOCRIT 29 % (40-54); LYMPHOCYTES # (AUTO) 0.6 X 10^3 (1.0-4.0); LYMPHOCYTES % (AUTO) 8 % (12-44); MEAN CORPUSCULAR HEMOGLOBIN 34 PG (25-34); MEAN CORPUSCULAR HGB CONC 34 G/DL (32-36); MEAN CORPUSCULAR VOLUME 100 FL (80-99); MEAN PLATELET VOLUME 10.1 FL (7.4-10.4); MONOCYTES # (AUTO) 0.8 X 10^3 (0.0-1.0); MONOCYTES % (AUTO) 11 % (0-12); NEUTROPHILS # (AUTO) 5.9 X 10^3 (1.8-7.8); NEUTROPHILS % (AUTO) 80 % (42-75); PLATELET COUNT 91 10^3/uL (130-400); RED BLOOD COUNT 2.92 10^6/uL (4.35-5.85); RED CELL DISTRIBUTION WIDTH 15.2 % (10.0-14.5); WHITE BLOOD COUNT 7.4 10^3/uL (4.3-11.0)
[2018-10-22] MEDS: PANTOPRAZOLE 40 MG (PROTONIX) VIAL IV SCH ×2 (09:51→21:33)
--- NOTE | 2018-10-22 12:44 | History & Physical-Hospitalist ---
History of Present Illness HPI/Chief Complaint CC: Hematemesis HPI: This is a 57-year-old white male of Dr. Del Rosario with a past medical history of end-stage renal disease on hemodialysis every Tuesday and Tuesday and valve replacement requiring inpatient rehabilitation stay for recovery who presented to the ER with hematemesis. He was placed in observation and monitoring. Dr. Sutton provider consultation and will perform EGD as an outpatient. Platelet count decreased to 11,000 but that was a lab error with clumping and the repeat was 91,000. We have restarted his home medicine in preparation for discharge tomorrow Source: patient, family, old records Exam Limitations: no limitations Date Seen 10/22/18 Time Seen by a Provider: 11:30 Attending Physician Zeus Del Rosario DO PCP Zeus Del Rosario DO Referring Physician Date of Admission Oct 21, 2018 at 20:40 Home Medications & Allergies Home Medications Reviewed patient Home Medication Reconciliation performed by pharmacy medication reconciliations building energy retrofit technician and/or nursing. Patients Allergies have been reviewed. Allergies Allergies Coded Allergies No Known Drug Allergies (Unverified12/12/15) Past Otcmcrj-Fgfgwv-Hjvswb Hx Past Med/Social Hx: Reviewed Nursing Past Med/Soc Hx, Reviewed and Corrections made Patient Social History Marrital Status: Employed/Student: unemployed Alcohol Use: Denies Use Recreational Drug Use: No Smoking Status: Former Smoker Former Smoker, Quit: Dec 19, 2017 Type Used: Cigarettes Recent Foreign Travel: No Contact w/other who traveled: No Recent Hopitalizations: Yes Recent Infectious Disease Expo: No Immunizations Up To Date Tetanus Booster (TDap): More than 5yrs Date of Pneumonia Vaccine: Sep 16, 2018 Date of Influenza Vaccine: Sep 16, 2018 Seasonal Allergies Seasonal Allergies: No Past Medical History Surgeries: Abdominal, Cardiac, Coronary Stent, Dialysis, Tonsillectomy, Tracheostomy, Valve Replacement, Vascular Surgery Cardiac: Atrial Fibrillation, Endocarditis, Heart Murmur, Hypertension Neurological: Traumatic Brain Injury Genitourinary: Renal Failure, Dialysis Gastrointestinal: Gastroesophageal Reflux, Gastrointestinal Bleed Musculoskeletal: Foot Drop Endocrine: Diabetes, Non-Insulin dep Psychosocial: Depression Family History Alzheimer's disease 19 MOTHER, Onset:60 years & older Diabetes mellitus 19 FATHER, Onset:Unknown No Pertinent Family Hx, Hypertension Review of Systems Constitutional: see HPI, weakness EENTM: no symptoms reported Respiratory: no symptoms reported Cardiovascular: no symptoms reported Gastrointestinal: hematemesis Genitourinary: no symptoms reported Musculoskeletal: no symptoms reported Skin: no symptoms reported Psychiatric/Neurological: No Symptoms Reported All Other Systems Reviewed Negative Unless Noted: Yes Physical Exam Physical Exam Vital Signs Vital Signs - First Documented 10/21/18 19:09 Temp 97.5 Pulse 101 Resp 18 B/P (MAP) 161/78 (105) Pulse Ox 100 O2 Delivery Room Air Capillary Refill : Less Than 3 Seconds Height, Weight, BMI Height: 5'11.00" Weight: 169lbs. 11.2oz. 76.783078yt; 20.0 BMI Method:Stated General Appearance: No Apparent Distress, WD/WN, Chronically ill, Thin Eyes: Bilateral Eye Normal Inspection, Bilateral Eye PERRL HEENT: PERRL/EOMI, TMs Normal, Normal ENT Inspection, Pharynx Normal Neck: Full Range of Motion, Normal Inspection, Non Tender, Supple, Carotid Bruit Respiratory: Chest Non Tender, Lungs Clear, Normal Breath Sounds, No Accessory Muscle Use, No Respiratory Distress Cardiovascular: Regular Rate, Rhythm, No Edema, No Gallop, No JVD, No Murmur, Normal Peripheral Pulses Gastrointestinal: Normal Bowel Sounds, No Organomegaly, No Pulsatile Mass, Non Tender, Soft Back: Normal Inspection, No CVA Tenderness, No Vertebral Tenderness Extremity: Normal Capillary Refill, Normal Inspection, Normal Range of Motion, Non Tender, No Calf Tenderness, No Pedal Edema Neurologic/Psychiatric: Alert, Oriented x3, No Motor/Sensory Deficits, Normal Mood/Affect Skin: Normal Color, Warm/Dry Lymphatic: No Adenopathy Results Results/Procedures Labs Laboratory Tests 10/21/18 19:50 10/22/18 03:03 10/22/18 09:14 Patient resulted labs reviewed. Assessment/Plan Admission Diagnosis Assessment: Hematemesis End-stage renal disease on hemodialysis Valve replacement Chronic debility Plan: Home meds Monitor closely Check labs in a.m. Dialysis on Tuesday EGD outpt Admission Status: Observation Diagnosis/Problems Diagnosis/Problems (1) Hematemesis Status: Acute Qualifiers: Nausea presence: without nausea Qualified Codes: K92.0 - Hematemesis (2) Thrombocytopenia Status: Resolved (3) History of heart valve replacement Status: Chronic (4) Hx of CABG Status: Chronic (5) Long-term current use of steroids Status: Chronic (6) ESRD (end stage renal disease) on dialysis Status: Chronic (7) IDDM (insulin dependent diabetes mellitus) Status: Chronic (8) Debility Status: Chronic (9) Depression Status: Chronic Qualifiers: Depression Type: unspecified Qualified Codes: F32.9 - Major depressive disorder, single episode, unspecified (10) CAD (coronary artery disease) Status: Chronic Qualifiers: Coronary Disease-Associated Artery/Lesion type: [place] artery [place] vs. transplanted heart: [place] heart Associated angina: without angina Qualified Codes: I25.10 - Atherosclerotic heart disease of [place] coronary artery without angina pectoris (11) Anemia Status: Chronic Qualifiers: Anemia type: unspecified type Qualified Codes: D64.9 - Anemia, unspecified Clinical Quality Measures DVT/VTE Risk/Contraindication: Risk Factor Score Per Nursin RFS Level Per Nursing on Admit: 2=Moderate MARTHA MADDEN DO Oct 22, 2018 12:44
[2018-10-22] MEDS ORDERED: CARV12.53 PO (12:45)
[2018-10-22] MEDS ORDERED: ACETAMINOPHEN 500 MG TAB (TYLENOL) PO PRN (12:45)
[2018-10-22] MEDS ORDERED: DOCUSATE SODIUM 100 MG (COLACE) CAP PO PRN (12:45)
[2018-10-22] MEDS ORDERED: ALPRAZolam 0.25 MG (XANAX) TAB PO PRN (12:45)
[2018-10-22] MEDS ORDERED: MELATONIN 3 MG TABLET PO PRN (12:45)
[2018-10-22] MEDS ORDERED: HYDROcodone/APAP 5 MG/325 MG (LORTAB) TAB PO PRN (12:45)
[2018-10-22] MEDS ORDERED: CALCIUM CARBONATE 500 MG (TUMS) TAB.CHEW PO PRN (12:45)
[2018-10-22] MEDS ORDERED: diphenhydrAMINE 25 MG TAB (BENADRYL) PO PRN (12:45)
[2018-10-22] MEDS ORDERED: BUPR100T15 PO (12:45)
[2018-10-22] MEDS ORDERED: FAMO-119 PO (12:46)
[2018-10-22] MEDS ORDERED: TRAM50TA2 PO (12:56)
[2018-10-22] MEDS ORDERED: LORA-407 PO (12:57)
[2018-10-22] MEDS ORDERED: PRD1T PO (12:59)
--- NOTE | 2018-10-22 13:22 | Consultation ---
History of Present Illness History of Present Illness Patient Consulted On(sylvia/time) 10/22/18 13:14 Date Seen by Provider: Oct 22, 2018 Time Seen by Provider: 13:15 History of Present Illness Consult requested by Dr. Demarco for coffee-ground emesis Patient is a 57-year-old male who for 9 months consent significant medical history noting kidney disease requiring dialysis, valve replacement, gastroparesis. Patient states the longest timeframe that he's got without having emesis is been about 2 weeks. Patient over last couple months is been increasing oral intake and had gastrostomy tube removed. He still has continued emesis. Nothing seems to make it better. Nothing was seems to make it worse that he knows of. Patient will last 2 or 3 days is been noticing more of a coffee-ground emesis which was occult positive. He is on dialysis on Saturdays. He was noted for observation last night. Patient hemoglobin has been stable. He did have a drop in platelets which he did receive platelets however this may have been lab draw error. He has spent time in rehabilitation try to get stronger. He is still little bit weak at this time. He is not having any abdominal pain. His main complaint is a coffee -ground emesis. Denies any fever sweats chills shortness of breath or chest pain. Allergies and Home Medications Allergies Coded Allergies: No Known Drug Allergies (Unverified , 12/12/15) Home Medications Bupropion HCl 100 Mg Tablet, 150 MG PO BID Prescribed by: GEORGE SUNSHINE on 10/22/18 1245 Carvedilol 12.5 Mg Tablet, 12.5 MG PO BID Prescribed by: GEORGE SUNSHINE on 10/22/18 1245 Famotidine 20 Mg Tablet, 20 MG PO BID Prescribed by: GEORGE SUNSHINE on 10/22/18 1246 Lorazepam 2 Mg Tablet, 2 MG PO HS Prescribed by: GEORGE SUNSHINE on 10/22/18 1257 Prednisone 1 Mg Tab, 6 MG PO DAILY Prescribed by: GEORGE SUNSHINE on 10/22/18 1259 Tramadol HCl 50 Mg Tablet, 50 MG PO Q6H Prescribed by: GEORGE SUNSHINE on 10/22/18 1256 Patient Home Medication List Home Medication List Reviewed: Yes Past Aejkwio-Ndaeqp-Jiuuml Hx Patient Social History Alcohol Use: Denies Use Recreational Drug Use: No Smoking Status: Former Smoker Former Smoker, Quit: Dec 19, 2017 Type Used: Cigarettes Recent Foreign Travel: No Contact w/Someone Who Travel: No Recent Infectious Disease Expo: No Recent Hopitalizations: Yes Immunizations Up To Date Tetanus Booster (TDap): More than 5yrs Date of Pneumonia Vaccine: Sep 16, 2018 Date of Influenza Vaccine: Sep 16, 2018 Seasonal Allergies Seasonal Allergies: No Surgeries History of Surgeries: Yes (LEFT INGUINAL HERNIA REPAIR, APPROX 2002; GLUTEAL ABSCESS I&D 12/2017; CARDIAC CATH AND STENT; AORTIC VALVE REPLACEMENT; TRACH PLACED/REMOVED; PEG TUBE/REMOVED;MEDIASTINAL EXPLORATION AND HEMATOMA EVACUATION ; LEFT CENTRAL LINE FOR HEMODIALYSIS; LEFT ARM AV FISTULA/DIALYSIS GRAFT 2017 WITH REVISION 10/20/17) Surgeries: Abdominal, Cardiac, Coronary Stent, Dialysis, Tonsillectomy, Tracheostomy, Valve Replacement, Vascular Surgery Respiratory History of Respiratory Disorde: Yes (RESPIRATORY FAILURE DUE TO SEPSIS AND SUBSEQUENT CARDIOPULMONARY ARREST AND EVENTUAL TRACH STARTING IN 02/2018--LATER REMOVED. 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; SUBSEQUENT ATRIAL FIBRILLATION AND OH WITH CARDIOPULMONARY ARREST-- REPORTEDLY CODED 6-7 TIMES; MULTIORGAN FAILURE; S/P AORTIC VALVE REPLACEMENT WITH PIG VALVE;) Cardiac Disorders: Atrial Fibrillation, Endocarditis, Heart Murmur, Hypertension Neurological History of Neurological Disord: Yes (CODED 6-7 TIMES FROM SEPSIS/MULTIORGAN FAILURE AND HAD SUBSEQUENT BRAIN INJURY) Neurological Disorders: Traumatic Brain Injury Genitourinary History of Genitourinary Disor: Yes (DIALYSIS PATIENT) Genitourinary Disorders: Renal Failure, Dialysis Gastrointestinal History of Gastrointestinal Di: Yes (S/P PEG TUBE AND REMOVAL;CHRONIC NAUSEA/ VOMITING) Gastrointestinal Disorders: Gastroesophageal Reflux, Gastrointestinal Bleed Musculoskeletal History of Musculoskeletal Dis: Yes (RLE BRACE; IMPAIRED AMBULATION SECONDARY TO ALL OF THE ABOVE) Musculoskeletal Disorders: Foot Drop Endocrine History of Endocrine Disorders: Yes Endocrine Disorders: Diabetes, Non-Insulin dep HEENT History of HEENT Disorders: Yes (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) Cancer History of Cancer: No Psychosocial History of Psychiatric Problem: Yes Behavioral Health Disorders: Depression Integumentary History of Skin or Integumenta: Yes (SACRAL PRESSURE ULCER) Family Medical History Significant Family History: No Pertinent Family Hx, Hypertension Family Medial History: Alzheimer's disease 19 MOTHER, Onset:60 years & older Diabetes mellitus 19 FATHER, Onset:Unknown Review of Systems-General Constitutional: see HPI EENTM: no symptoms reported Respiratory: no symptoms reported Cardiovascular: no symptoms reported Genitourinary: see HPI Musculoskeletal: no symptoms reported Skin: no symptoms reported Psychiatric/Neurological: No Symptoms Reported Physical Exam-General Problems Physical Exam Vital Signs Vital Signs - First Documented 10/21/18 19:09 Temp 97.5 Pulse 101 Resp 18 B/P (MAP) 161/78 (105) Pulse Ox 100 O2 Delivery Room Air Capillary Refill : Less Than 3 Seconds General Appearance: no apparent distress HEENT: PERRL/EOMI, normal ENT inspection Neck: supple Respiratory: chest non-tender, no respiratory distress, no accessory muscle use Cardiovascular: irregularly irregular Gastrointestinal: non tender, soft, no organomegaly, no pulsatile mass Rectal: deferred Back: normal inspection Extremities: non-tender Neurologic/Psychiatric: tapper shank II-XII nml as tested, no motor/sensory deficits, alert, normal mood/affect, oriented x 3 Skin: normal color, warm/dry Lymphatic: no adenopathy Data Review Labs Laboratory Tests 10/21/18 19:50: White Blood Count 9.6, Red Blood Count 3.30L, Hemoglobin 11.1L, Hematocrit 33L, Mean Corpuscular Volume 100H, Mean Corpuscular Hemoglobin 34, Mean Corpuscular Hemoglobin Concent 34, Red Cell Distribution Width 15.3H, Platelet Count 89L, Mean Platelet Volume 10.8H, Neutrophils (%) (Auto) 81H, Lymphocytes (%) (Auto) 7L, Monocytes (%) (Auto) 11, Eosinophils (%) (Auto) 1, Basophils (%) (Auto) 0, Neutrophils # (Auto) 7.7, Lymphocytes # (Auto) 0.7L, Monocytes # (Auto) 1.1H, Eosinophils # (Auto) 0.1, Basophils # (Auto) 0.0, Neutrophils % (Manual) 81, Lymphocytes % (Manual) 6, Monocytes % (Manual) 9, Eosinophils % (Manual) 1, Band Neutrophils 3, Polychromasia NA, Anisocytosis SLIGHT, Macrocytosis SLIGHT, Prothrombin Time 15.3H, INR Comment 1.2, Activated Partial Thromboplast Time 39H , Sodium Level 139, Potassium Level 3.8, Chloride Level 96L, Carbon Dioxide Level 29, Anion Gap 14, Blood Urea Nitrogen 28H, Creatinine 3.23H, Estimat Glomerular Filtration Rate 20, BUN/Creatinine Ratio 9, Glucose Level 92, Calcium Level 9.5, Corrected Calcium 9.7, Magnesium Level 2.0, Total Bilirubin 1.2H, Aspartate Amino Transf (AST/SGOT) 17, Alanine Aminotransferase (ALT/SGPT) 8, Alkaline Phosphatase 112, Total Protein 6.1L, Albumin 3.7, Amylase Level 46, Lipase 25 10/22/18 03:03: White Blood Count 7.5, Red Blood Count 2.98L, Hemoglobin 10.2L, Hematocrit 30L, Mean Corpuscular Volume 100H, Mean Corpuscular Hemoglobin 34, Mean Corpuscular Hemoglobin Concent 34, Red Cell Distribution Width 15.0H, Platelet Count 11*L, Mean Platelet Volume 9.5, Neutrophils (%) (Auto) 75, Lymphocytes (%) (Auto) 11L , Monocytes (%) (Auto) 13H, Eosinophils (%) (Auto) 1, Basophils (%) (Auto) 0, Neutrophils # (Auto) 5.6, Lymphocytes # (Auto) 0.8L, Monocytes # (Auto) 0.9, Eosinophils # (Auto) 0.1, Basophils # (Auto) 0.0, Sodium Level 138, Potassium Level 3.7, Chloride Level 101, Carbon Dioxide Level 23, Anion Gap 14, Blood Urea Nitrogen 31H, Creatinine 3.55H, Estimat Glomerular Filtration Rate 18, BUN/ Creatinine Ratio 9, Glucose Level 71, Calcium Level 9.1, Corrected Calcium 9.7, Total Bilirubin 0.9, Aspartate Amino Transf (AST/SGOT) 16, Alanine Aminotransferase (ALT/SGPT) < 6, Alkaline Phosphatase 98, Total Protein 5.2L, Albumin 3.3 10/22/18 06:50: Urine Color YELLOW, Urine Clarity SLIGHTLY CLOUDY, Urine pH 8, Urine Specific Hester 1.015L, Urine Protein 3+H, Urine Glucose (UA) NEGATIVE, Urine Ketones 1+ H, Urine Nitrite POSITIVEH, Urine Bilirubin NEGATIVE, Urine Urobilinogen NORMAL , Urine Leukocyte Esterase 3+H, Urine RBC (Auto) 3+H, Urine RBC 5-10H, Urine WBC TNTCH, Urine Crystals NONE, Urine Bacteria MODERATEH, Urine Casts NONE, Urine Mucus NEGATIVE, Urine Culture Indicated YES 10/22/18 09:14: White Blood Count 7.4, Red Blood Count 2.92L, Hemoglobin 10.0L, Hematocrit 29L, Mean Corpuscular Volume 100H, Mean Corpuscular Hemoglobin 34, Mean Corpuscular Hemoglobin Concent 34, Red Cell Distribution Width 15.2H, Platelet Count 91L, Mean Platelet Volume 10.1, Neutrophils (%) (Auto) 80H, Lymphocytes (%) (Auto) 8L , Monocytes (%) (Auto) 11, Eosinophils (%) (Auto) 1, Basophils (%) (Auto) 0, Neutrophils # (Auto) 5.9, Lymphocytes # (Auto) 0.6L, Monocytes # (Auto) 0.8, Eosinophils # (Auto) 0.1, Basophils # (Auto) 0.0 10/22/18 10:32: Glucometer 74 Assessment/Plan Assessment/Plan Assessment/Plan Chronic renal disease requiring dialysis Coffee-ground emesis Gastroparesis Chronic nausea and vomiting Patient 57-year-old male who had coffee-ground emesis. His hemoglobin is stable last couple blood draws. His platelet count did drop to 11 which was transfused but this may have been lab draw here. We'll continue to monitor with repeat CBC in a.m. We'll start him on clear liquids and see how he is doing. His CT scan was reviewed which demonstrated gastritis with questionable emphysematous gastritis but clinical picture and physical exam did not go along with this questionable finding. We'll still continue to monitor for change concerning for emphysematous gastritis. Patient and understand findings. If everything is continued be stable could DC home tomorrow continue with dialysis and further workup with EGD as outpatient and planning with his dialysis. Clinical Quality Measures DVT/VTE Risk/Contraindication: Risk Factor Score Per Nursin RFS Level Per Nursing on Admit: 2=Moderate ZAC ANDREW DO Oct 22, 2018 13:22
[2018-10-22] MEDS: NS IV 1000 ML 1,000 ML IV SCH (13:29)
[2018-10-22] MEDS: cefTRIAXone FOR IV USE 1,000 MG in NS (IVPB) 50 ML IV SCH (13:29)
[2018-10-22] MEDS: SUCRALFATE 1 GM (CARAFATE) TAB PO SCH ×2 (18:04→21:33)
[2018-10-22] MEDS ORDERED: LORazepam 1 MG (ATIVAN) TAB PO SCH (21:00)
[2018-10-22] MEDS ORDERED: NON-FORMULARY MEDICATION 1 EA EA (Lorazepam (Ativan) 2 MG) PO SCH (21:00)
[2018-10-22] MEDS ORDERED: NON-FORMULARY MEDICATION 1 EA EA (Famotidine (Pepcid) 20 MG) PO SCH (21:00)
[2018-10-22] MEDS ORDERED: FAMOTIDINE 20 MG (PEPCID) TABLET PO SCH (21:00)
[2018-10-22] MEDS ORDERED: buPROPion 100 MG (WELLBUTRIN) TAB PO SCH (21:00)
--- NOTE | 2018-10-22 21:07 | NUR ---
Dr. Sutton contacted to see if he would like to have a second PRN for nausea as pt told this RN that the Zofran he had earlier today didn't help him too much. Dr. Sutton ordered to attempt only using the Zofran order but that he may also have phenergan 12.5mg IVP Q6H PRN for nausea if the zofran fails to help.
[2018-10-22] MEDS ORDERED: PROMETHAZINE INJ 25 MG/ML (PHENERGAN) AMP IVP PRN (21:15)
[2018-10-22] MEDS: CARVEDILOL 12.5 MG (COREG) TABLET PO SCH (21:33)
[2018-10-23 04:00] VITALS: BP 103/56
[2018-10-23 04:45] LABS: BASOPHILS % (AUTO) 0 % (0-10); EOSINOPHILS # (AUTO) 0.2 10^3/uL (0.0-0.3); EOSINOPHILS % (AUTO) 2 % (0-10); HEMATOCRIT 29 % (40-54); HEMOGLOBIN 9.7 G/DL (13.3-17.7); LYMPHOCYTES % (AUTO) 13 % (12-44); MEAN CORPUSCULAR HEMOGLOBIN 33 PG (25-34); MEAN CORPUSCULAR HGB CONC 33 G/DL (32-36); MEAN CORPUSCULAR VOLUME 100 FL (80-99); MEAN PLATELET VOLUME 10.4 FL (7.4-10.4); MONOCYTES # (AUTO) 0.8 X 10^3 (0.0-1.0); MONOCYTES % (AUTO) 11 % (0-12); NEUTROPHILS # (AUTO) 5.5 X 10^3 (1.8-7.8); NEUTROPHILS % (AUTO) 73 % (42-75); PLATELET COUNT 91 10^3/uL (130-400); RED BLOOD COUNT 2.91 10^6/uL (4.35-5.85); RED CELL DISTRIBUTION WIDTH 14.5 % (10.0-14.5); WHITE BLOOD COUNT 7.4 10^3/uL (4.3-11.0)
[2018-10-23 05:08] LABS: ALANINE AMINOTRANSFERASE < 6 U/L (0-55); ALBUMIN 3.2 GM/DL (3.2-4.5); ALKALINE PHOSPHATASE 93 U/L (40-136); BILIRUBIN,TOTAL 0.8 MG/DL (0.1-1.0); BUN/CREATININE RATIO 9; CALCIUM 9.1 MG/DL (8.5-10.1); CARBON DIOXIDE 24 MMOL/L (21-32); CHLORIDE 100 MMOL/L (98-107); CREATININE SERUM 4.66 MG/DL (0.60-1.30); GFR ESTIMATED 13; GLUCOSE 100 MG/DL (70-105); POTASSIUM 3.5 MMOL/L (3.6-5.0); SODIUM 136 MMOL/L (135-145); TOTAL PROTEIN 5.1 GM/DL (6.4-8.2)
[2018-10-23] MEDS: CATHETER FLUSH 10 ML SYR IV SCH (05:48)
[2018-10-23] MEDS: inSUlin ASPART (NovoLOG) 1 UNIT/0.01 ML (CHARGE PER UNIT) SC SCH ×2 (05:49→12:01)
[2018-10-23] MEDS: SUCRALFATE 1 GM (CARAFATE) TAB PO SCH ×2 (06:24→11:57)
[2018-10-23] MEDS ORDERED: buPROPion 100 MG (WELLBUTRIN) TAB PO SCH (07:00)
[2018-10-23 08:00] VITALS: BP 114/60
[2018-10-23] MEDS ORDERED: predniSONE 1 MG TAB PO SCH (08:00)
[2018-10-23] MEDS: CARVEDILOL 12.5 MG (COREG) TABLET PO SCH (08:47)
[2018-10-23] MEDS: PANTOPRAZOLE 40 MG (PROTONIX) VIAL IV SCH (08:47)
[2018-10-23] MEDS: NS IV 1000 ML 1,000 ML IV SCH (08:57)
[2018-10-23] MEDS ORDERED: ONDA4TAB11 PO (10:00)
[2018-10-23] MEDS ORDERED: OMEP40CA36 PO (10:00)
[2018-10-23] MEDS ORDERED: CEFD300C3 PO (10:00)
--- NOTE | 2018-10-23 10:02 | Discharge Summary-Hospitalist ---
MARTHA MADDEN DO 10/23/18 1002: Diagnosis/Chief Complaint Date of Admission Oct 21, 2018 at 20:40 Date of Discharge Discharge Date: Oct 23, 2018 Admission Diagnosis Assessment: Hematemesis End-stage renal disease on hemodialysis Valve replacement Chronic debility Plan: Home meds Monitor closely Check labs in a.m. Dialysis on Tuesday EGD outpt Discharge Diagnosis (1) Hematemesis Status: Resolved (2) Thrombocytopenia Status: Resolved (3) History of heart valve replacement Status: Chronic (4) Hx of CABG Status: Chronic (5) Long-term current use of steroids Status: Chronic (6) ESRD (end stage renal disease) on dialysis Status: Chronic (7) IDDM (insulin dependent diabetes mellitus) Status: Chronic (8) Debility Status: Chronic (9) Depression Status: Chronic (10) CAD (coronary artery disease) Status: Chronic (11) Anemia Status: Chronic (12) UTI (urinary tract infection) Discharge Summary Discharge Physical Exam Allergies: Coded Allergies: No Known Drug Allergies (Unverified , 12/12/15) Vitals & I&Os Vital Signs Date Time Temp Pulse Resp B/P (MAP) Pulse Ox O2 Delivery O2 Flow Rate FiO2 10/23/18 08:00 97.9 88 18 114/60 (78) 94 Room Air General Appearance: No Apparent Distress, WD/WN, Chronically ill Respiratory: Chest Non Tender, Lungs Clear, Normal Breath Sounds, No Accessory Muscle Use, No Respiratory Distress Cardiovascular: Regular Rate, Rhythm, No Edema, No Gallop, No JVD, No Murmur, Normal Peripheral Pulses Neurologic/Psychiatric: Alert, Oriented x3, No Motor/Sensory Deficits, Normal Mood/Affect Hospital Course Hospital course: Patient was admitted for hematemesis with thrombocytopenia. Patient receives hemodialysis 3 times daily for end-stage renal disease. Dr. Sutton was consulted and will arrange EGDs an outpatient and patient will be maintained on proton pump inhibitor with Zofran as an outpatient. Patient had no decompensation during the hospital stay. Labs (last 24 hrs) Laboratory Tests 10/22/18 15:52: Glucometer 67L 10/22/18 20:54: Glucometer 173H 10/23/18 04:20: White Blood Count 7.4, Red Blood Count 2.91L, Hemoglobin 9.7L, Hematocrit 29L, Mean Corpuscular Volume 100H, Mean Corpuscular Hemoglobin 33, Mean Corpuscular Hemoglobin Concent 33, Red Cell Distribution Width 14.5, Platelet Count 91L, Mean Platelet Volume 10.4, Neutrophils (%) (Auto) 73, Lymphocytes (%) (Auto) 13 , Monocytes (%) (Auto) 11, Eosinophils (%) (Auto) 2, Basophils (%) (Auto) 0, Neutrophils # (Auto) 5.5, Lymphocytes # (Auto) 1.0, Monocytes # (Auto) 0.8, Eosinophils # (Auto) 0.2, Basophils # (Auto) 0.0, Sodium Level 136, Potassium Level 3.5L, Chloride Level 100, Carbon Dioxide Level 24, Anion Gap 12, Blood Urea Nitrogen 41H, Creatinine 4.66#H, Estimat Glomerular Filtration Rate 13, BUN /Creatinine Ratio 9, Glucose Level 100, Calcium Level 9.1, Corrected Calcium 9.7 , Total Bilirubin 0.8, Aspartate Amino Transf (AST/SGOT) 15, Alanine Aminotransferase (ALT/SGPT) < 6, Alkaline Phosphatase 93, Total Protein 5.1L, Albumin 3.2 Microbiology 10/22/18 Urine Culture - Preliminary, Resulted Gram Negative Bacillus 1 Patient resulted labs reviewed. Pending Labs Laboratory Tests 10/23/18 04:20: White Blood Count 7.4, Red Blood Count 2.91, Hemoglobin 9.7, Hematocrit 29, Mean Corpuscular Volume 100, Mean Corpuscular Hemoglobin 33, Mean Corpuscular Hemoglobin Concent 33, Red Cell Distribution Width 14.5, Platelet Count 91, Mean Platelet Volume 10.4, Neutrophils (%) (Auto) 73, Lymphocytes (%) (Auto) 13 , Monocytes (%) (Auto) 11, Eosinophils (%) (Auto) 2, Basophils (%) (Auto) 0, Neutrophils # (Auto) 5.5, Lymphocytes # (Auto) 1.0, Monocytes # (Auto) 0.8, Eosinophils # (Auto) 0.2, Basophils # (Auto) 0.0, Sodium Level 136, Potassium Level 3.5, Chloride Level 100, Carbon Dioxide Level 24, Anion Gap 12, Blood Urea Nitrogen 41, Creatinine 4.66, Estimat Glomerular Filtration Rate 13, BUN/ Creatinine Ratio 9, Glucose Level 100, Calcium Level 9.1, Corrected Calcium 9.7 , Total Bilirubin 0.8, Aspartate Amino Transf (AST/SGOT) 15, Alanine Aminotransferase (ALT/SGPT) < 6, Alkaline Phosphatase 93, Total Protein 5.1, Albumin 3.2 Discussion & Recommendations Discharge Planning: <30 minutes discharge planning Discharge Home Medications: Active Scripts Active Cefdinir 300 Mg Capsule 300 Mg PO Q48H Ondansetron Odt (Ondansetron) 4 Mg Tab.rapdis 4 Mg PO Q6H Omeprazole 40 Mg Capsule.dr 40 Mg PO DAILY Prednisone 1 Mg Tab 6 Mg PO DAILY Ativan (Lorazepam) 2 Mg Tablet 2 Mg PO HS Tramadol HCl 50 Mg Tablet 50 Mg PO Q6H Pepcid (Famotidine) 20 Mg Tablet 20 Mg PO BID Bupropion HCl 100 Mg Tablet 150 Mg PO BID 30 Days Carvedilol 12.5 Mg Tablet 12.5 Mg PO BID 30 Days Instructions to patient/family Please see electronic discharge instructions given to patient. Clinical Quality Measures DVT/VTE Risk/Contraindication: Risk Factor Score Per Nursin RFS Level Per Nursing on Admit: 2=Moderate DARIO SINGH MEDICAL STUDENT 10/23/18 1019: Discharge Summary Discharge Physical Exam Allergies: Coded Allergies: No Known Drug Allergies (Unverified , 12/12/15) General Appearance: No Apparent Distress, WD/WN HEENT: PERRL/EOMI Respiratory: Lungs Clear, Normal Breath Sounds, No Respiratory Distress Hospital Course Pt was admitted for coffee ground emesis. Pt was found to have low platelets, which may have been due to lab error, and was given platelets which have remained stable. CT showed gastritis. Pt given Rocephin and Zofran. Pt no longer having any emesis. Pt stable for discharge and outpt dialysis tomorrow. Problem Qualifiers (1) Hematemesis: Nausea presence: without nausea Qualified Codes: K92.0 - Hematemesis (2) Depression: Depression Type: unspecified Qualified Codes: F32.9 - Major depressive disorder, single episode, unspecified (3) CAD (coronary artery disease): Coronary Disease-Associated Artery/Lesion type: [place] artery [place] vs. transplanted heart: [place] heart Associated angina: without angina Qualified Codes: I25.10 - Atherosclerotic heart disease of [place] coronary artery without angina pectoris (4) Anemia: Anemia type: unspecified type Qualified Codes: D64.9 - Anemia, unspecified MARTHA MADDEN DO Oct 23, 2018 10:02 DARIO SINGH MEDICAL STUDENT Oct 23, 2018 10:19
[2018-10-23] MEDS: cefTRIAXone FOR IV USE 1,000 MG in NS (IVPB) 50 ML IV SCH (11:57)
[2018-10-23 12:00] VITALS: BP 121/60
[2018-10-23 14:15] VITALS: BP 120/60
--- NOTE | 2018-10-23 14:15 | NUR ---
DARIO FRANKS demonstrates understanding of discharge instructions and accurately returns instructions upon questioning. Copy of Post-Discharge Instructions given to PT. DARIO FRANKS is able to manage continuing needs after discharge WITH ASSISTANCE OF . Patients belongings returned to PT. Patient discharged from 429-1 on 10/23/18 at 15:15. DARIO FRANKS left floor via W/C, accompanied by STAFF AND PER AUTO.
--- NOTE | 2018-10-23 17:21 | Progress Note ---
Subjective Date Seen by a Provider: Oct 23, 2018 Time Seen by a Provider: 09:32 Subjective/Events-last exam patient feeling better today. Patient had some nausea last night which was controlled. This was similar to what he's been experiencing for the last 9 months. Patient tolerating diet this morning.he has not had any coffee-ground emesis. He is due for his dialysis tomorrow. His platelets have remained stable and hemoglobin stable as well. Currently he denies any nausea vomiting fever sweats chills shortness of breath or chest pain. No family at bedside. Objective Exam Vital Signs Date Time Temp Pulse Resp B/P (MAP) Pulse Ox O2 Delivery O2 Flow Rate FiO2 10/23/18 14:15 104 16 120/60 96 Room Air 10/23/18 13:30 104 10/23/18 12:00 97.1 72 16 121/60 (80) 96 Room Air 10/23/18 08:00 97.9 88 18 114/60 (78) 94 Room Air 10/23/18 07:00 90 10/23/18 04:00 97.7 91 20 103/56 (72) 98 Room Air 10/23/18 00:01 102 10/22/18 23:40 99.0 104 20 117/73 (88) 97 Room Air 10/22/18 20:00 Room Air 10/22/18 19:37 98.0 109 20 131/75 (93) 98 Room Air 10/22/18 19:00 106 I & O 10/23/18 07:00 Intake Total 1990 ml Output Total 1725 ml Balance 265 ml Capillary Refill : Less Than 3 Seconds General Appearance: No Apparent Distress, WD/WN, Chronically ill HEENT: PERRL/EOMI Neck: Full Range of Motion, Normal Inspection, Non Tender, Supple Respiratory: Chest Non Tender, No Accessory Muscle Use, No Respiratory Distress Cardiovascular: Regular Rate, Rhythm, Normal Peripheral Pulses Gastrointestinal: non tender, soft, no organomegaly, no pulsatile mass Extremity: Normal Capillary Refill, Normal Inspection, Normal Range of Motion, Non Tender, No Calf Tenderness, No Pedal Edema, Other (good thrill left upper extremity) Neurologic/Psychiatric: Alert, Oriented x3, No Motor/Sensory Deficits, Normal Mood/Affect Skin: Normal Color, Warm/Dry Lymphatic: No Adenopathy Results Lab Laboratory Tests 10/22/18 20:54: Glucometer 173H 10/23/18 04:20: White Blood Count 7.4, Red Blood Count 2.91L, Hemoglobin 9.7L, Hematocrit 29L, Mean Corpuscular Volume 100H, Mean Corpuscular Hemoglobin 33, Mean Corpuscular Hemoglobin Concent 33, Red Cell Distribution Width 14.5, Platelet Count 91L, Mean Platelet Volume 10.4, Neutrophils (%) (Auto) 73, Lymphocytes (%) (Auto) 13 , Monocytes (%) (Auto) 11, Eosinophils (%) (Auto) 2, Basophils (%) (Auto) 0, Neutrophils # (Auto) 5.5, Lymphocytes # (Auto) 1.0, Monocytes # (Auto) 0.8, Eosinophils # (Auto) 0.2, Basophils # (Auto) 0.0, Sodium Level 136, Potassium Level 3.5L, Chloride Level 100, Carbon Dioxide Level 24, Anion Gap 12, Blood Urea Nitrogen 41H, Creatinine 4.66#H, Estimat Glomerular Filtration Rate 13, BUN /Creatinine Ratio 9, Glucose Level 100, Calcium Level 9.1, Corrected Calcium 9.7 , Total Bilirubin 0.8, Aspartate Amino Transf (AST/SGOT) 15, Alanine Aminotransferase (ALT/SGPT) < 6, Alkaline Phosphatase 93, Total Protein 5.1L, Albumin 3.2 10/23/18 11:14: Glucometer 217H Microbiology 10/22/18 Urine Culture - Preliminary, Resulted Gram Negative Bacillus 1 Assessment/Plan Assessment/Plan Assessment/Plan Chronic renal disease requiring dialysis Coffee-ground emesis Gastroparesis Chronic nausea and vomiting patient stable this time. Patient needing dialysis which is scheduled for tomorrow. Patient okay to be discharged at this time would continue on Protonix. We'll plan on outpatient EGD. 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 Patient was discussed any weakness and concerns that his had which patient is not wanting to go to detention or any rehabilitation is wanting to go home and feels he is strong enough to do so. patient instructed if any worsening of condition she should be reevaluated at that time. Clinical Quality Measures DVT/VTE Risk/Contraindication: Risk Factor Score Per Nursin RFS Level Per Nursing on Admit: 2=Moderate ZAC ANDREW DO Oct 23, 2018 17:21
== END 2018-10-23 14:15 | disposition home or self-care (01) | DRG 377 ==
LOC: EDUNIT# 19:05 → ER 19:06 → ICU 20:40 → 4TH 10-22 08:15
PROVIDERS: ADMIT Surgery; ATTEND Internal Medicine
DX: K29.71 Gastritis, unspecified, with bleeding (principal); E11.43 Type 2 diabetes mellitus with diabetic autonomic (poly)neuropathy; E11.22 Type 2 diabetes mellitus with diabetic chronic kidney disease; N18.6 End stage renal disease; Z99.2 Dependence on renal dialysis; Z79.4 Long term (current) use of insulin; L89.154 Pressure ulcer of sacral region, stage 4; N39.0 Urinary tract infection, site not specified; D69.6 Thrombocytopenia, unspecified; I48.91 Unspecified atrial fibrillation; K21.9 Gastro-esophageal reflux disease without esophagitis; M21.371 Foot drop, right foot; F32.9 Major depressive disorder, single episode, unspecified; I25.10 Atherosclerotic heart disease of native coronary artery without angina pectoris; D64.9 Anemia, unspecified; Z87.891 Personal history of nicotine dependence; Z95.1 Presence of aortocoronary bypass graft; Z95.5 Presence of coronary angioplasty implant and graft; Z79.52 Long term (current) use of systemic steroids
CPT/HCPCS: 36415; 71250; 74176; 80053; 81000; 82150; 82962; 83690; 83735; 85007; 85025; 85027; 85610; 85730; 86850; 86900; 86901; 87077; 87088; 87186; 93041; 96361; 96374; 96375

== ENCOUNTER 2019-01-03 14:15 | Outpatient (RCR) | payer BC ==
[~2019-01-03 14:15] MED LIST changes: +BUPR100T15 PO; +CARV12.53 PO; +CEFD300C3 PO; +FAMO-119 PO; +LORA-407 PO; +LOSA100T57 PO; -LOSA100T8 PO; +OMEP40CA36 PO; +ONDA4TAB11 PO; +PRD1T PO; +TRAM50TA2 PO
== END 2019-01-04 | disposition home or self-care (01) ==
PROVIDERS: ATTEND Internal Medicine
DX: R53.1 Weakness (principal); Z86.73 Personal history of transient ischemic attack (TIA), and cerebral infarction without residual deficits; E11.9 Type 2 diabetes mellitus without complications; I10 Essential (primary) hypertension

== ENCOUNTER 2019-06-13 11:00 | Outpatient (RCR) | payer BC ==
[~2019-06-13 11:00] MED LIST changes: -OMEP20CA12 PO; +OMEP20CA13 PO
== END 2019-07-05 | disposition home or self-care (01) ==
PROVIDERS: ATTEND Internal Medicine
DX: R53.1 Weakness (principal); Z86.73 Personal history of transient ischemic attack (TIA), and cerebral infarction without residual deficits; E11.9 Type 2 diabetes mellitus without complications; I10 Essential (primary) hypertension

== ENCOUNTER → 2019-09-03 | Outpatient (CLI) | payer BC, MEDICARE ==
--- NOTE | 2019-09-03 17:11 | Diagnostic Imaging Report ---
INDICATION: Fall. Decreased stability. Loss of right hip range of motion and hip pain. FINDINGS: There is a catheter looped within the low pelvis. There are moderate osteoarthritic changes present at both hips. There is bilateral acetabular subchondral sclerosis. The morphology of the femoral heads appears appropriate without evidence of collapse. There are no plain film findings of a proximal femoral fracture. There is no diastasis of the pubic symphysis or of the SI joints. IMPRESSION: 1. Moderate bilateral hip osteoarthritic changes without evidence of dislocation, acute fracture, or suspicious bone lesion. Dictated by: Dictated on workstation # [id number]
== END ==
LOC: RAD 15:33
PROVIDERS: ATTEND Internal Medicine
DX: M16.0 Bilateral primary osteoarthritis of hip (principal); W19.XXXA Unspecified fall, initial encounter

== ENCOUNTER 2019-10-19 14:02 | Outpatient (RCR) | payer BC, MEDICARE ==
[~2019-10-19 14:02] MED LIST changes: +FENO145T26 PO; -FENO145T37 PO; -GLIM4TAB PO; +GLIM4TAB5 PO; -MELA3TAB PO; +MELA3TAB65 PO; -OMEP20CA13 PO; +OMEP20CA18 PO; +OMEP40CA27 PO; -OMEP40CA36 PO; +ONDA-105 PO; -ONDA4TAB10 PO; -SUCR1ORA PEG; +SUCR1ORA15 PEG; -TRAM50TA2 PO; +TRM50T PO
== END 2019-12-19 15:38 | disposition home or self-care (01) ==
PROVIDERS: ATTEND Internal Medicine
DX: G62.81 Critical illness polyneuropathy (principal); I12.0 Hypertensive chronic kidney disease with stage 5 chronic kidney disease or end stage renal disease; N18.6 End stage renal disease; Z99.2 Dependence on renal dialysis; E11.9 Type 2 diabetes mellitus without complications; K21.9 Gastro-esophageal reflux disease without esophagitis; Z86.73 Personal history of transient ischemic attack (TIA), and cerebral infarction without residual deficits

== ENCOUNTER → 2019-12-11 | Outpatient (CLI) | payer OTHER | LOC: WOUNDCARE 10:16 | PROVIDERS: ATTEND Orthopaedic Surgery Hand Surgery | DX: L97.528 Non-pressure chronic ulcer of other part of left foot with other specified severity (principal); L97.312 Non-pressure chronic ulcer of right ankle with fat layer exposed; I73.89 Other specified peripheral vascular diseases; E11.621 Type 2 diabetes mellitus with foot ulcer | CPT/HCPCS: 11042 ==

== ENCOUNTER → 2019-12-18 | Outpatient (CLI) | payer OTHER | LOC: WOUNDCARE 10:40 | PROVIDERS: ATTEND Surgery | DX: E11.621 Type 2 diabetes mellitus with foot ulcer (principal); E11.52 Type 2 diabetes mellitus with diabetic peripheral angiopathy with gangrene; I70.262 Atherosclerosis of native arteries of extremities with gangrene, left leg; L97.522 Non-pressure chronic ulcer of other part of left foot with fat layer exposed; L97.422 Non-pressure chronic ulcer of left heel and midfoot with fat layer exposed; L97.312 Non-pressure chronic ulcer of right ankle with fat layer exposed | CPT/HCPCS: 11042 ==

== ENCOUNTER 2020-04-18 05:21 | Emergency (ER) | payer MEDICARE, BC ==
[~2020-04-18] VITALS: Ht 177.8 cm; Wt 87.0 kg
[~2020-04-18 05:21] MED LIST changes: +MELA3TAB39 PO; -MELA3TAB65 PO
--- OUTSIDE RECORDS SUMMARY | 2020-04-18 05:27 | XMS REPORT | Encounter Summary ---
Author Author [facility] Organization [facility] Address Unknown Phone Unavailable Care Team Providers Care Machine Clipper Name Role Phone Zeus Del Rosario MD PCP Zeus Brandon MD Unavailable Blaire Han MD 21 Reason for Visit * Reason Comments Kidney Evaluation Encounter Details Care Team Description Date Type Department Cheryl Gaytan RN Kidney Evaluation 11/22/[address] [id number] Social History Date Tobacco Use Types Packs/Day Years Used Current Every Day Smoker Cigarettes 24 Smokeless Tobacco: Never Used Sex Assigned at Date Recorded Not on file Industry Job Start Date Occupation Not on file Not on file Not on file Travel End Travel History Travel Start No recent travel history available. documented as of this encounter Functional Status Date of Assessment Functional Status Response 10/15/2019 Does the patient have a hearing impairment: No 10/15/2019 Does the patient have a visual impairment: Yes 10/15/2019 Does the patient have impaired ambulation: No 10/15/2019 Does the patient have an activity of daily living No (ADL) impairment: 10/15/2019 Does the patient have an instrumental activity of No daily living (IADL) impairment: Date of Assessment Cognitive Status Response 10/15/2019 Does the patient have a cognitive impairment: No documented as of this encounter Miscellaneous Notes * Telephone Encounter - Cheryl Gaytan RN - 11/22/2019 10:20 AM ELEMENTARY TEACHER FLAKITO rec'd from Marielena Rodriguez NP from [facility]. [place] attempted call back x2 and left VM for her to call back at her earliest convenience. ENTARY TEACHER documented in this encounter Plan of Treatment Not on filedocumented as of this encounter Visit Diagnoses Not on filedocumented in this encounter
--- OUTSIDE RECORDS SUMMARY | 2020-04-18 05:27 | XMS REPORT | Clinical Summary ---
Author Author [facility] Organization [facility] Address Unknown Phone Unavailable Care Team Providers Care Editor Name Role Phone Zeus Del Rosario MD PCP Zeus Brandon MD Unavailable Blaire Han MD 21 Source Comments Some departments are not documenting in the electronic medical record. If you d o not see the information that you expected, contact Release of Information in [facility] [email or web address] Information Management department at [phone] for further assistan ce in locating additional records.[facility] Allergies No Known Allergies Medications End Date Status Medication Sig Dispensed Refills Start Date Active LORazepam (ATIVAN) 1 mg Take 1 mg by 0 tablet mouth at bedtime daily. Active busPIRone (BUSPAR) 15 mg Take 15 mg by 0 tablet mouth twice daily. Active calcitriol (ROCALTROL) Take 0.5 mcg 0 0.5 mcg capsule by mouth daily. Active calcium acetate (PHOSLO) Take 2,001 mg 0 667 mg capsule by mouth three times daily with meals. Active calcium acetate (PHOSLO) Take 1,334 mg 0 667 mg capsule by mouth with snacks. Active carvedilol (COREG) 12.5 Take 12.5 mg 0 mg tablet by mouth twice daily with meals. Take with food. Active gabapentin (NEURONTIN) Take 100 mg 0 100 mg capsule by mouth at bedtime daily. Active metoclopramide (REGLAN) Take 10 mg by 0 10 mg tablet mouth every 6 hours as needed for Nausea, Vomiting or Other.... Active omeprazole DR (PRILOSEC) Take 40 mg by 0 40 mg capsule mouth daily before breakfast. Active cinacalcet (SENSIPAR) 30 Take 30 mg by 0 mg tab mouth three times weekly. MWF Active buPROPion SR Take 150 mg 0 (WELLBUTRIN-SR) 150 mg by mouth tablet twice daily. Active Problems No known active problems Family History Medical History Relation Name Comments Diabetes Type II Brother Cancer-Prostate Father Hypertension Father Hypertension Mother Diabetes Type II Sister Relation Name Status Comments Brother Father Mother Sister Social History Date Tobacco Use Types Packs/Day Years Used Current Every Day Smoker Cigarettes 24 Smokeless Tobacco: Never Used Sex Assigned at Date Recorded Not on file Industry Job Start Date Occupation Not on file Not on file Not on file Travel End Travel History Travel Start No recent travel history available. Last Filed Vital Signs Reading Time Taken Comments Vital Sign 131/60 10/15/2019 10:53 AM [employer] SUPERVISOR Blood Pressure 81 10/15/2019 10:53 AM [employer] SUPERVISOR Pulse 36.6 C (97.8 F) 10/15/2019 10:50 AM [employer] SUPERVISOR Temperature - - Respiratory Rate 100% 10/15/2019 10:50 AM [employer] RIP[employer] SUPERVISOR Oxygen Saturation - - Inhaled Oxygen Concentration 93.8 kg (206 lb 12.8 oz) 10/15/2019 10:50 AM [employer] SUPERVISOR Weight 181.6 cm (5' 11.5") 10/15/2019 10:50 AM [employer]NA[employer] RO[employer] SUPERVISOR Height 28.44 10/15/2019 10:50 AM [employer] SUPERVISOR Body Mass Index Plan of Treatment Health Maintenance Due Date Last Done Comments DILATED EYE EXAM 1979 DTAP/TDAP VACCINES (1 - 1979 Tdap) FOOT EXAM 1979 MICROALBUMIN 1979 PHYSICAL (COMPREHENSIVE) 1979 EXAM PNEUMONIA VACCINE (DM) 1979 COLORECTAL CANCER 2011 SCREENING SHINGLES RECOMBINANT 2011 VACCINE (1 of 2) HBA1C 04/15/2020 10/15/2019 INFLUENZA VACCINE 07/17/2020 HEPATITIS C SCREENING Completed 10/15/2019 HIV SCREENING Completed 10/15/2019 Results Not on filefrom Last 3 Months Insurance Type Payer Benefit Subscriber ID Effective Phone Address Plan / Dates Group PPO ALMA MARQUEZ xxxxxxxxxxxxxxx 2019 TRANSPLANT -Present Medicare MEDICARE RAILROAD MEDICARE xxxxxxxxxxx 2019 RAILROAD -Present PART A AND B PPO [employer] xxxxxxxxxxxxxxx [id number] OUT OF resent STATE Advance Directives Patient Payroll And Benefits Assistant Explanation Type Date Recorded Advance Directive/DPOA
--- OUTSIDE RECORDS SUMMARY | 2020-04-18 05:28 | XMS REPORT | Continuity of Care Document ---
Author [facility] Organization [facility] Address Unknown Phone Unavailable Care Team Providers Care Toll Ticket Clerk Name Role Phone [facility] Unavailable Unavailable Problems Problem Status Onset Date Classification Date Reported Comments Source No known active problems 04/18/[address] [facility] , Medications Medication Details Route Status Patient Instructions Ordering Provider Order Date Source LORazepam (ATIVAN) 1 mg tablet Take 1 mg by mouth at bedtime daily. Oral Active [facility], busPIRone (BUSPAR) 15 mg tablet Take 15 mg by mouth twice daily. Oral Active [facility], calcitriol (ROCALTROL) 0.5 mcg capsule Take 0.5 mcg by mouth daily. Oral Active [facility], calcium acetate (PHOSLO) 667 mg capsule Take 2,001 mg by mouth three times daily with meals. Oral Active [facility], carvedilol (COREG) 12.5 mg tablet Take 12.5 mg by mouth twice daily with meals. Take with food. Oral Active [facility], gabapentin (NEURONTIN) 100 mg capsule Take 100 mg by mouth at bedtime daily. Oral Active [facility], metoclopramide (REGLAN) 10 mg tablet Take 10 mg by mouth every 6 hours as needed for Nausea, Vomiting or Other.... Oral Active [facility], omeprazole DR (PRILOSEC) 40 mg capsule Take 40 mg by mouth daily before breakfast. Oral Active [facility], cinacalcet (SENSIPAR) 30 mg tab Take 30 mg by mouth three times weekly. MWF Oral Active [facility], buPROPion SR (WELLBUTRIN-SR) 150 mg tablet Take 150 mg by mouth twice daily. Oral Active [facility], Allergies, Adverse Reactions, Alerts No Known Medication Allergies Immunizations No Data Provided for This Section Results No Data Provided for This Section Pathology Reports No Data Provided for This Section Diagnostic Reports No Data Provided for This Section Consultation Notes Results Value Date Source [facility]. Note Telephone Encounter - Cheryl Gaytan RN - 11/22/2019 10:20 AM CSTVM rec'd from Marielena Rodriguez, TIER AND DETONATOR from [facility]. NC attempted call back x2 and left VM for her to call back at her earliest conveni ence. E MANAGER 11/22/2019 [facility]. Note Telephone Encounter - Tammy Lowery - 11/16/2019 7:23 AM CSTFINANCIAL ASSESSMENTFinancial Assessment has been received, reviewed and APPROVED.Patient has adequate resources for natty and post Transplant care.AKF Assistance of $618 per month has been taken in to consideration on his Financial Assessment. MM 11/16/19 E MANAGER 11/16/2019 [facility]. Note Telephone Encounter - Cheryl Gaytan RN - 10/25/2019 9:55 AM CSTCalled pt back r/t VM left on fellow [place]'s mailbox. Left VM for pt to call this NC back at his earliest convenience. Electronically si gned by Cheryl Gaytan RN at 10/25/2019 9:56 AM LEAVE MANAGER 10/25/2019 [facility]. Note Telephone Encounter - Tata Burrows RN - 10/25/2019 9:33 AM CSTReceived VM from "[place]" but unable to hear last name. Looked up pt based on phone number and noted that pt is in eval with coordinator Cheryl. Did not save VM to forward so will route to Cheryl for follow up with pt. E MANAGER 10/25/2019 [facility], Discharge Summaries No Data Provided for This Section History and Physicals No Data Provided for This Section Vital Signs Vital Sign Value Date Comments Source Systolic blood pressure 131 mm [Hg] 10/15/2019 [facility], Diastolic blood pressure 60 mm [Hg] 10/15/2019 [facility], Heart rate 81 /min 10/15/2019 [facility], Body temperature 36.56 [place] 10/15/2019 [facility], Body height 181.6 cm 10/15/2019 [facility], Body weight 93.804 kg 10/15/2019 [facility], BMI 28.44 kg/m2 10/15/2019 [facility], Oxygen saturation in Arterial blood by Pulse oximetry 100 % 10/15/2019 [facility] , Encounters Location Location Details Encounter Type Encounter Number Reason For Visit Attending Provider ADM Date DC Date Status Source SPEC REF [id number] PRATIP SCHRADER 03/01/2018 Active [facility], MRI CLI [id number] LAMONTE RAJ 03/31/2018 Active [facility], CFT KPTX NEP OUTPATIENT [id number] 10/01/2019 Active [facility], T KPTX ZACARIAS OUTPATIENT [id number] A TTA [place] 10/15/2019 10/15/2019 Active [facility], CFT KPTX NEP OUTPATIENT [id number] CRISELDA ALBRECHT 10/15/2019 10/15/[address] [facility], T KPTX NEP OUTPATIENT [id number] 10/15/2019 10/15/2019 Active [facility], BHCFTLAB OU TPATIENT [id number] Joann HART 10/15/2019 10/15/2019 Active [facility], CAT OUTPATI ENT [id number] A TTA [place] 10/15/2019 10/16/2019 Active [facility], [facility] Telephone [id number] Cheryl Gaytan RN 10/25/2019 [facility], [facility] Telephone [id number] Tata Burrows RN 10/25/2019 [facility], [facility] Telephone [id number] Tammy Moody 020 [facility], [facility] Telephone [id number] Cheryl Gaytan RN 11/22/2019 [facility], O Active [facility], Procedures No Data Provided for This Section Plan of Care Plan of Care Date Source Health MaintenanceDue DateLast DoneComme ntsDILATED EYE EXAM1979DTAP/TDAP VACCINES (1 - Tdap)1979FOOT EXAM12/03/[id number]/17/1980PHYSICAL (COMPREHENSIVE) EXAM1979PNEUMONIA VACCINE (DM)1979COLORECTAL CANCER GEBLMBTSV67/17/2012SHINGLES RECOMBINANT VACCINE (1 of 2)12/03/[id number] WKWJRDW4807/17/2020HEPATITIS C AUCZWLYRDVqukemoyx66/30/2019HIV MCHAREAQJWvfhnbppi65/30/2019 04/18/2020 [facility], Social History No Data Provided for This Section Assessment and Plan No Data Provided for This Section Family History Value Date S ource Medical HistoryRelationNameCommentsDiabe sekou Type IIBrotherCancer- ProstateFatherHypertensionFatherHypertensionMotherDiabetes Type IISisterRelationNameStatusCommentsBrotherFatherMotherSister 04/18/2020 [facility], Advance Directives Order Name Results Value Date Source Advance Directives Advance Dir ectives Documents on FileTypeDate RecordedPatien t RepresentativeExplanationAdvance Directive/DPOA 04/18/2020 [facility], Functional Status No Data Provided for This Section
--- OUTSIDE RECORDS SUMMARY | 2020-04-18 05:28 | XMS REPORT | Encounter Summary ---
Author Author [facility] Organization [facility] Address Unknown Phone Unavailable Care Team Providers Care Speedometer Inspector Name Role Phone Zeus Del Rosario MD PCP Zeus Brandon MD Unavailable Blaire Han MD 21 Reason for Visit * Reason Comments Kidney Evaluation Encounter Details Care Team Description Date Type Department Cheryl Gaytan RN Kidney Evaluation 10/25/2019 Telephone [address] [phone] Social History Date Tobacco Use Types Packs/Day [...] Cheryl Gaytan RN - 10/25/2019 9:55 AM LEVEL VIAL CURVATURE GAUGER Called pt back r/t VM left on fellow [facility]'s mailbox. Left VM for pt to call this N C back at his earliest convenience. L VIAL CURVATURE GAUGER documented in this encounter Plan of Treatment Not on filedocumented as of this encounter Visit Diagnoses Not on filedocumented in this encounter
--- OUTSIDE RECORDS SUMMARY | 2020-04-18 05:28 | XMS REPORT | Encounter Summary ---
Author Author [facility] Organization [facility] Address Unknown Phone Unavailable Care Team Providers Care Sleeping Car Conductor Name Role Phone Zeus Del Rosario MD PCP Zeus Brandon MD Unavailable Blaire Han MD 21 Reason for Visit * Reason Comments Kidney Evaluation patient phone call Encounter Details Care Team Description Date Type Department Tata Burrows RN Kidney Evaluation (patient phone call) 10/25/2019 Telephone The [address] [address] Social History Date Tobacco Use Types Packs/Day [...] encounter Miscellaneous Notes * Telephone Encounter - Tata Burrows RN - 10/25/2019 9:33 AM DYE EXPERT Received VM from "Brenton" but unable to hear last name. Looked up pt based on phon e number and noted that pt is in eval with coordinator Cheryl. Did not save VM to forward so will route to Cheryl for follow up with pt. EXPERT documented in this encounter Plan of Treatment Not on filedocumented as of this encounter Visit Diagnoses Not on filedocumented in this encounter
--- OUTSIDE RECORDS SUMMARY | 2020-04-18 05:28 | XMS REPORT ---
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 creatinine measurement with calculation of estimated glomerular filtration rate on 2018-10-23 GFR/1.73 sq M 13 (no code) 90 - 120 [place] [facility] a predicted among mL/min/{1.73_m2} mL/min/{1.73_m2} [facility] non-blacks MDRD ([id number]) vol rate/area (S/P/Bld) serum or plasma creatinine measurement (mass/volume) on 2018-10-23 Creatinine mass 4.66 mg/dL (#H) [place] [facility] (83991) serum or plasma chloride measurement (moles/volume) on 2018-10-23 Chloride molar 100 mmol/L (no code) 95 - 106 mmol/L [facility] ([id number]) serum or plasma calcium measurement (mass/volume) on 2018-10-23 Calcium mass 9.1 mg/dL (no code) 8.5 - 10.2 mg/dL [facility] (69948) serum or plasma aspartate aminotransferase measurement (enzymatic activity/volume) on 2018-10-23 AST enzyme 15 U/L (no code) 10 - 34 U/L [place] [facility] (46356) serum or plasma anion gap determination (moles/volume) on 2018-10-23 Anion gap 3 12 mmol/L (no code) 3 - 11 mmol/L [place] [facility] ia molar [facility] (54363) serum or plasma alkaline phosphatase measurement (enzymatic activity/volume) on 2018-10-23 ALP enzyme 93 U/L (no code) 44 - 147 U/L [place] [facility] (45659) serum or plasma albumin measurement (mass/volume) on 2018-10-23 Albumin mass 3.2 g/dL (no code) 3.4 - 5.4 g/dL [place] [facility] (83974) serum or plasma alanine aminotransferase measurement (enzymatic activity/volume) on 2018-10-23 ALT enzyme no information (no code) [place] [facility] (85676) carbon dioxide on 2018-10-23 CO2 molar conc 24 mmol/L (no code) 23 - 29 mmol/L [facility] (91240) capillary blood glucose measurement by glucometer (mass/volume) on 2018-10-23 Glucose mass 217 mg/dL (H) 60 - 125 mg/dL [place] [facility] (59761) calcium measurement corrected for albumin on 2018-10-23 Albumin mass 9.7 g/dL (no code) 3.4 - 5.4 g/dL [place] [facility] (63100) blood neutrophils automated count (number/volume) on 2018-10-23 Neutrophils Auto 5.5 10*3/uL (no code) 1.7 - 7 10*3/uL [facility] Via #/vol (Bld) [facility] (06268) blood monocytes/100 leukocytes on 2018-10-23 Monocytes/100 11 % (no code) 2 - 8 % [place] [facility] WBC Auto (Bld) [facility] (57849) blood monocytes automated count (number/volume) on 2018-10-23 Monocytes Auto 0.8 10*3/uL (no code) 0.3 - 0.9 [place] [facility] #/vol (Bld) 10*3/uL [facility] (03252) blood lymphocytes automated count (number/volume) on 2018-10-23 Lymphocytes Auto 1.0 10*3/uL (no code) 0.9 - 2.9 [place] [facility] #/vol (Bld) 10*3/uL [facility] (52759) blood leukocytes automated count (number/volume) on 2018-10-23 WBC Auto #/vol 7.4 10*3/uL (no code) 3.5 - 10.5 [place] [facility] ia (Bld) 10*3/uL [facility] (88256) blood hematocrit (volume fraction) on 2018-10-23 Hematocrit Auto 29 % (L) 36.1 - 50.3 % [facility] Volume Fraction [facility] ([facility]) (37227) blood erythrocytes automated count (number/volume) on 2018-10-23 RBC Auto #/vol 2.91 10*6/uL (L) 4.2 - 6.1 [place] [facility] (Bld) 10*6/uL [facility] (24342) automated erythrocyte mean corpuscular volume on 2018-10-23 MCV Auto Entitic 100 fL (H) 80 - 100 fL [facility] volume (RBC) [facility] (79724) automated erythrocyte mean corpuscular hemoglobin concentration measurement (mass/volume) on 2018-10-23 MCHC Auto mass 33 g/dL (no code) 32 - 36 g/dL [place] [facility] conc (RBC) [facility] (21502) automated erythrocyte mean corpuscular hemoglobin (mass per erythrocyte) on 2018-10-23 MCH Auto Entitic 33 pg (no code) 27 - 31 pg [place] [facility] mass (RBC) [facility] ([id number]) automated erythrocyte distribution width ratio on 2018-10-23 Erythrocyte 14.5 % (no code) 11.6 - 14.6 % [place] [facility] ia distribution [facility] width Auto Ratio ([id number]) (RBC) automated eosinophil count on 2018-10-23 Eosinophils Auto 0.2 10*3/uL (no code) 0.05 - 0.5 [place] [facility] #/vol (Bld) 10*3/uL [facility] (33794) automated blood platelet mean volume measurement on 2018-10-23 Platelet mean 10.4 fL (no code) 7.2 - 11.7 fL [place] [facility] volume Auto [facility] Entitic volume (50423) (Bld) automated blood platelet count (count/volume) on 2018-10-23 Platelets Auto 91 10*3/uL (L) 150 - 450 [place] [facility] #/vol (Bld) 10*3/uL [facility] (15661) automated blood neutrophils/100 leukocytes on 2018-10-23 Neutrophils/100 73 % (no code) 40 - 60 % [place] [facility] WBC Auto (Bld) [facility] (09309) automated blood lymphocytes/100 leukocytes on 2018-10-23 Lymphocytes/100 13 % (no code) 20 - 40 % [place] [facility] WBC Auto (Bld) [facility] (03378) automated blood eosinophils/100 leukocytes on 2018-10-23 Eosinophils/100 2 % (no code) 1 - 4 % [place] [facility] WBC Auto (Bld) [facility] (71926) automated blood basophils/100 leukocytes on 2018-10-23 Basophils/100 0 % (no code) 0.5 - 1 % [place] [facility] WBC Auto (Bld) [facility] (71442) automated blood basophil count (count/volume) on 2018-10-23 Basophils Auto 0.0 10*3/uL (no code) 0 - 0.3 10*3/uL [facility] #/vol (Bld) [facility] (16292) urine urobilinogen measurement by automated test strip (mass/volume) on 2018-10-22 Urobilinogen NORMAL (no code) [place] [facility] Test strip Qn [facility] (U) (09458) urine total bilirubin detection by test strip on 2018-10-22 Bilirubin Ql (U) Negative (no code) [place] [facility] (17615) urine protein assay by test strip, semi-quantitativ e on 2018-10-22 Protein Test 3+ (*) [place] [facility] strip Ql (U) [facility] (39298) urine ph measurement by test strip on 2018-10-22 pH Test strip 8 [pH] (no code) 4.6 - 8 [pH] [place] [facility] (U) [facility] (52676) urine nitrite detection by test strip on 2018-10-22 Nitrite Test Positive (*) [place] [facility] strip Ql (U) [facility] (51728) urine leukocyte esterase detection by dipstick on 2018-10-22 Leukocyte 3+ (*) [place] [facility] esterase Test [facility] strip Ql (U) (76340) urine ketones detection by automated test strip on 2018-10-22 Ketones 1+ (*) [place] [facility] Automated test [facility] strip Ql (U) (95296) urine glucose detection by automated test strip on 2018-10-22 Glucose Negative (no code) [place] [facility] Automated test [facility] strip Ql (U) (23815) urine color determination on 2018-10-22 Color Nom (U) YELLOW (no code) [place] [facility] (13230) urine clarity determination on 2018-10-22 Clarity Nom (U) SLIGHTLY CLOUDY (no code) [place] [facility] (74989) specific gravity of urine by test strip on 2018-10-22 Specific gravity 1.015 (*) [place] [facility] Relative Density [facility] (U) (38318) mucus detection in urine sediment by light microscopy on 2018-10-22 Mucus LM Ql Negative (no code) [place] [facility] (Urine sed) [facility] (14759) erythrocytes detection in urine sediment by light microscopy on 2018-10-22 RBC LM Ql (Urine 3+ (*) [place] [facility] sed) [facility] (66630) crystals detection in urine sediment by light microscopy on 2018-10-22 Crystals LM Ql NONE (no code) [place] [facility] (Urine sed) [facility] (21661) complete urinalysis with reflex to culture on 2018-10-22 Urinalysis YES (no code) [place] [facility] complete W [facility] Reflex Culture ([id number]) panel - Urine casts detection in urine sediment by light microscopy on 2018-10-22 Casts LM Ql NONE (no code) [place] [facility] (Urine sed) [facility] (46981) bacterial urine culture on 2018-10-22 Bacteria Negative (no code) [place] [facility] identified Cx [facility] Nom (U) (97802) bacteria detection in urine sediment by light microscopy on 2018-10-22 Bacteria LM Ql MODERATE (*) [place] [facility] (Urine sed) [facility] (12079) automated urine sediment leukocyte count by microscopy (number/high power field) on 2018-10-22 WBC LM.HPF TNTC (*) [place] [facility] #/area (Urine [facility] sed) (88680) automated urine sediment erythrocyte count by microscopy (number/high power field) on 2018-10-22 RBC LM.HPF no information (*) [place] [facility] #/area (Urine [facility] sed) (31345) serum or plasma amylase measurement (enzymatic activity/volume) on 2018-10-21 Amylase enzyme 46 U/L (no code) 40 - 140 U/L [place] [facility] act/vol [facility] (20368) prothrombin time (pt) in platelet poor plasma by coagulation assay on 2018-10-21 Prothrombin time 15.3 s (H) 9.4 - 12.5 s [facility] (PT) Coag time [facility] (PPP) (23001) manual eosinophils/100 leukocytes in nose on 2018-10-21 Eosinophils/100 1 (no code) [place] [facility] WBC Manual cnt [facility] (Nose) (47598) manual blood segmented neutrophils/100 leukocytes on 2018-10-21 Segmented 81 % (no code) 35 - 80 % [place] [facility] neutrophils/100 [facility] WBC Manual cnt (86153) (Bld) manual blood lymphocytes/100 leukocytes on 2018-10-21 Lymphocytes/100 6 % (no code) 20 - 40 % [place] [facility] WBC Auto (Bld) [facility] (47554) magnesium on 2018-10-21 Magnesium mass 2.0 mg/dL (no code) 1.7 - 2.2 mg/dL [facility] conc [facility] (04780) lipase on 2018-10-21 Lipase enzyme 25 U/L (no code) 10 - 73 U/L [place] [facility] act/vol [facility] (99763) inr in platelet poor plasma or blood by coagulation assay on 2018-10-21 INR Coag RelTime 1.2 (no code) [place] [facility] (Platelet poor [facility] plasma or blood) (59936) blood polychromasia detection by light microscopy on 2018-10-21 Polychromasia LM no information (no code) [place] [facility] Ql (d) [facility] (47408) blood monocytes/100 leukocytes on 2018-10-21 Monocytes/100 9 % (no code) 2 - 8 % [place] [facility] a WBC Auto ([facility]) [facility] (48044) blood macrocytes detection by light microscopy on 2018-10-21 Macrocytes Auto SLIGHT (no code) [place] [facility] Ql (d) [facility] (67515) blood band neutrophils/100 leukocytes on 2018-10-21 Band form 3 % (no code) 0 - 3 % [place] [facility] neutrophils/100 [facility] WBC Manual cnt (78754) (Bld) blood anisocytosis detection by light microscopy on 2018-10-21 Anisocytosis SLIGHT (no code) [place] [facility] Auto ([facility]) [facility] (60285) activated partial thromboplastin time (aptt) in platelet poor plasma bycoagulation assay on 2018-10-21 aPTT Coag time 39 s (H) 25 - 35 s [place] [facility] (Bld) [facility] (80157) capillary blood glucose measurement by glucometer (mass/volume) on 2018-07-25 Glucose mass 154 mg/dL (H) 60 - 125 mg/dL Via [facility] (98127) serum or plasma urea nitrogen/creatin ine mass ratio on 2018-07-04 Urea 10 mg/mg (no code) 6 - 22 mg/mg Via [facility] nitrogen/Creatin Hospital ine mass ratio [place] (80442) serum or plasma urea nitrogen measurement (mass/volume) on 2018-07-04 Urea nitrogen 31 mg/dL (H) 7 - 20 mg/dL Via [facility] (98847) serum or plasma sodium measurement (moles/volume) on 2018-07-04 Sodium molar 136 mmol/L (no code) 135 - 145 mmol/L Via [facility] (84201) serum or plasma potassium measurement (moles/volume) on 2018-07-04 Potassium molar 4.4 mmol/L (no code) 3.7 - 5.2 mmol/L Via [facility] (53961) serum or plasma glucose measurement (mass/volume) on 2018-07-04 Glucose mass 102 mg/dL (no code) 60 - 125 mg/dL Via [facility] (61118) serum or plasma creatinine measurement with calculation of estimated glomerular filtration rate on 2018-07-04 GFR/1.73 sq M 20 (no code) 90 - 120 Via [facility] among mL/min/{1.73_m2} mL/min/{1.73_m2} [facility] vol rate/area () (S/P/Bld) serum or plasma creatinine measurement (mass/volume) on 2018-07-04 Creatinine mass 3.26 mg/dL (H) Via [facility] (13981) serum or plasma chloride measurement (moles/volume) on 2018-07-04 Chloride molar 97 mmol/L (L) 95 - 106 mmol/L Via [facility] (80231) serum or plasma calcium measurement (mass/volume) on 2018-07-04 Calcium mass 10.0 mg/dL (no code) 8.5 - 10.2 mg/dL Via [facility] (68633) serum or plasma anion gap determination (moles/volume) on 2018-07-04 Anion gap 3 8 mmol/L (no code) 3 - 11 mmol/L [facility] molar [facility] (11600) carbon dioxide on 2018-07-04 CO2 molar conc 31 mmol/L (no code) 23 - 29 mmol/L Via [facility] (59970) venous blood hemoglobin measurement (mass/volume) on 2018-06-23 Hemoglobin mass 9.8 g/dL (L) 12.1 - 17.2 g/dL Via [facility] (d) [facility] (66605) setting of ventilation mode on 2018-06-23 Ventilation mode NO (no code) [facility] Ventilator [facility] () bnp level on 2018-06-23 Natriuretic 323.8 pg/mL (H) 0 - 100 pg/mL [facility] peptide B [facility] blood po2 on 2018-06-23 Oxygen ppres 79 mm[Hg] (no code) 75 - 100 mm[Hg] [facility] sti (d) [facility] () blood pco2 on 2018-06-23 CO2 molar conc 43 mmol/L (no code) 23 - 29 mmol/L Via [facility] () blood neutrophils automated count (number/volume) on 2018-06-23 Neutrophils Auto 4.5 10*3/uL (no code) 1.7 - 7 10*3/uL [facility] #/vol (Bld) [facility] () blood monocytes/100 leukocytes on 2018-06-23 Monocytes/100 9 % (no code) 2 - 8 % [facility] WBC Auto (d) [facility] () blood monocytes automated count (number/volume) on 2018-06-23 Monocytes Auto 0.5 10*3/uL (no code) 0.3 - 0.9 [facility] #/vol (d) 10*3/uL [facility] () blood lymphocytes automated count (number/volume) on 2018-06-23 Lymphocytes Auto 0.7 10*3/uL (L) 0.9 - 2.9 Via [facility] ti #/vol (d) 10*3/uL [facility] (75351) blood leukocytes automated count (number/volume) on 2018-06-23 WBC Auto #/vol 5.8 10*3/uL (no code) 3.5 - 10.5 Via [facility] (d) 10*3/uL [facility] (36536) blood hematocrit (volume fraction) on 2018-06-23 Hematocrit Auto 29 % (L) 36.1 - 50.3 % Via [facility] Volume Fraction [facility] ([facility] () blood erythrocytes automated count (number/volume) on 2018-06-23 RBC Auto #/vol 3.08 10*6/uL (L) 4.2 - 6.1 Via [facility] i (Bld) 10*6/uL [facility] (01197) automated erythrocyte mean corpuscular volume on 2018-06-23 MCV Auto Entitic 93 fL (no code) 80 - 100 fL Via [facility] volume (RBC) [facility] (94533) automated erythrocyte mean corpuscular hemoglobin concentration measurement (mass/volume) on 2018-06-23 MCHC Auto mass 34 g/dL (no code) 32 - 36 g/dL Via [facility] conc (RBC) [facility] (86822) automated erythrocyte mean corpuscular hemoglobin (mass per erythrocyte) on 2018-06-23 MCH Auto Entitic 32 pg (no code) 27 - 31 pg Via [facility] mass (RBC) [facility] (85096) automated erythrocyte distribution width ratio on 2018-06-23 Erythrocyte 15.9 % (H) 11.6 - 14.6 % [facility] distribution Hospital width Auto Ratio [place] (RBC) (25635) automated eosinophil count on 2018-06-23 Eosinophils Auto 0.1 10*3/uL (no code) 0.05 - 0.5 Via [facility] ti #/vol (Bld) 10*3/uL [facility] (32148) automated blood platelet mean volume measurement on 2018-06-23 Platelet mean 10.3 fL (no code) 7.2 - 11.7 fL Via [facility] volume Auto Hospital Entitic volume [place] (Bld) (91078) automated blood platelet count (count/volume) on 2018-06-23 Platelets Auto 88 10*3/uL (L) 150 - 450 [facility] #/vol (Bld) 10*3/uL [facility] (30886) automated blood neutrophils/100 leukocytes on 2018-06-23 Neutrophils/100 77 % (H) 40 - 60 % Via [facility] i WBC Auto (Bld) [facility] (86973) automated blood lymphocytes/100 leukocytes on 2018-06-23 Lymphocytes/100 12 % (no code) 20 - 40 % [facility] WBC Auto (Bld) [facility] (04925) automated blood eosinophils/100 leukocytes on 2018-06-23 Eosinophils/100 2 % (no code) 1 - 4 % [facility] WBC Auto (Bld) [facility] (24449) automated blood basophils/100 leukocytes on 2018-06-23 Basophils/100 0 % (no code) 0.5 - 1 % [facility] WBC Auto (Bld) [facility] (37848) automated blood basophil count (count/volume) on 2018-06-23 Basophils Auto 0.0 10*3/uL (no code) 0 - 0.3 10*3/uL Via [facility] #/vol (Bld) [facility] (65212) assessment of wrist artery patency prior to arterial puncture on 2018-06-23 Arterial patency no information (no code) [facility] Wrist artery [facility] --pre arterial [place] puncture (27613) arterial blood ph measurement with patient temperature correction on 2018-06-23 pH adjusted to 7.42 (no code) [facility] patient's actual Hospital temperature [place] (BldA) (37534) arterial blood oxygen saturation measurement on 2018-06-23 SaO2% mass 98 (no code) [facility] fraction (dA) [facility] () arterial blood carbon dioxide, total measurement (moles/volume) on 2018-06-23 CO2 molar conc 29.1 mmol/L (no code) 23 - 29 mmol/L [facility]61516[facility] arterial blood bicarbonate measurement (moles/volume) on 2018-06-23 HCO3 molar conc 28 mmol/L (H) 22 - 28 mmol/L Via [facility] (d) [facility] (67756) arterial blood base excess by calculation on 2018-06-23 Base excess 3.1 mmol/L (H) -2 - 2 mmol/L [facility] Calculated molar Hospital conc (d) [place] (53943) Vital Signs Vital Sign Value Interpretation Reference Date Time Care Prov ider Facility (Normalized) (Normalized) Range Body 95.5 (no code) [facility] [id number] [place] [address] ([id number]) Interventions No Information Plan of Treatment Normalized Care Care Detail Care Activity Date Care Provider F acility Activity Patient referral no information no information DO KEILA EDWARDS [place] [facility] [address] [place] [address] ([id number]) Goals Patient Goal Desired Goal no information no information Social History Normalized Code Original Code Date Value no information no information 12-12-2015 Denies Use no information no information 12-12-2015 No no information no information 10-21-2018 Cigarettes no information no information 10-21-2018 Yes Sex Assigned At Sex Assigned At no information M hilary Functional Status The data below is from unstructured sources Query Response Date Alfredo rded Patient Orientation Person Place Time Situation July 24, 2018 11:55am Comprehension Ability Understands Co ncepts July 25, 2018 8:00am Query Response Date Alfredo rded Comprehension Ability Understands Co ncepts October 22, 2018 8:00pm No Functional Status information available Mental Status The data below is from unstructured sourcesNo Mental Status Information Available Encounters Encounter Normalized Encounter Encounter Diagnosis Care Provi fitz Organization Date Type 06-13-2019 Discharged Recurring no information KEILA EDWARDS no organization name - Work Phone: 07-06-2019 04-04-2019 Discharged Recurring no information KEILA EDWARDS no organization name - Work Phone: 04-06-2019 01-03-2019 Discharged Recurring no information KEILA EDWARDS no organization name - Work Phone: 01-05-2019 10-21-2018 Emergency department no information no name no organization name patient visit 08-09-2018 Emergency department no information no name no organization name - patient visit 08-09-2018 08-08-2018 Emergency department no information TIARRA ESPINOSA MD (no [facility] - patient visit phone) [facility] 08-09-2018 (no phone) 12-19-2015 Emergency department no information KHALIDA THRASHER MD [facility] - patient visit (no phone) [facility] 12-19-2015 (no phone) 12-12-2015 Emergency department no information LALY GERMAN RI [facility] - patient visit (no phone) [facility] 12-12-2015 (no phone) 10-21-2018 Evaluation and Coronary KEILA TUCKER no o rganization name - management of arteriosclerosis Work Phone: 10-23-2018 inpatient 10-21-2018 Evaluation and no information KEILA TUCKER DO [facility] - management of (no phone) [facility] 10-23-2018 inpatient (no phone) 06-22-2018 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 FISH gregorio [facility] - management of [facility] 07-25-2018 inpatient FISH CRAFT MD (no (no phone ) phone) 08-09-2018 Patient encounter no information no name no or ganization name 07-29-2018 Patient encounter no information no name no or ganization name 06-22-2018 Patient encounter no information no name no or ganization name - 07-25-2018 NEGATED Patient encounter no information no name no or ganization name 01-09-2018 - 01-10-2018 12-19-2017 Patient encounter no information no name no or ganization name 12-18-2019 Patient encounter no information (no phone) [facility] (no phone) 12-18-2019 Patient encounter no information DARIO QUIROZ MD (no [facility] procedure phone) [facility] (no phone) 12-11-2019 Patient encounter no information (no phone) [facility] (no phone) 12-11-2019 Patient encounter no information AMBROCIO ELLIOTT MD [facility] (no phone) [facility] (no phone) 10-19-2019 Patient encounter no information KEILA TUCKER DO [facility] procedure (no phone) [facility] 12-19-2019 (no phone) 10-03-2019 Patient encounter no information no name no or ganization name procedure 09-26-2019 Patient encounter no information no name no or ganization name procedure 09-03-2019 Patient encounter no information KEILA TUCKER DO [facility] (no phone) [facility] (no phone) 07-06-2019 Patient encounter no information no name no or ganization name procedure 07-05-2019 Patient encounter no information no name no or ganization name procedure 06-13-2019 Patient encounter no information KEILA TUCKER DO [facility] procedure (no phone) [facility] 07-05-2019 (no phone) 06-11-2019 Patient encounter no information no name no or ganization name procedure 06-08-2019 Patient encounter no information no name no or ganization name procedure 06-06-2019 Patient encounter no information no name no or ganization name procedure 05-24-2019 Patient encounter no information no name no or ganization name procedure 05-21-2019 Patient encounter no information no name no or ganization name procedure 05-18-2019 Patient encounter no information no name no or ganization name procedure 05-14-2019 Patient encounter no information no name no or ganization name procedure 05-11-2019 Patient encounter no information no name no or ganization name procedure 05-07-2019 Patient encounter no information no name no or ganization name procedure 05-07-2019 Patient encounter no information no name no or ganization name procedure 04-30-2019 Patient encounter no information no name no or ganization name procedure 04-27-2019 Patient encounter no information no name no or ganization name procedure 04-23-2019 Patient encounter no information no name no or ganization name procedure 04-18-2019 Patient encounter no information no name no or ganization name procedure 04-16-2019 Patient encounter no information no name no or ganization name procedure 04-13-2019 Patient encounter no information no name no or ganization name procedure 04-11-2019 Patient encounter no information no name no or ganization name procedure 04-06-2019 Patient encounter no information no name no or ganization name procedure 04-06-2019 Patient encounter no information no name no or ganization name procedure 04-04-2019 Patient encounter no information no name no or ganization name - procedure 04-05-2019 04-04-2019 Patient encounter no information KEILA TUCKER DO [facility] [address] - procedure (no phone) [facility] 04-04-2019 (no phone) 03-26-2019 Patient encounter no information no name no or ganization name procedure 03-23-2019 Patient encounter no information no name no or ganization name procedure 03-19-2019 Patient encounter no information no name no or ganization name procedure 03-16-2019 Patient encounter no information no name no or ganization name procedure 03-14-2019 Patient encounter no information no name no or ganization name procedure 03-05-2019 Patient encounter no information no name no or ganization name procedure 02-26-2019 Patient encounter no information no name no or ganization name procedure 02-21-2019 Patient encounter no information no name no or ganization name procedure 02-16-2019 Patient encounter no information no name no or ganization name procedure 02-14-2019 Patient encounter no information no name no or ganization name procedure 02-09-2019 Patient encounter no information no name no or ganization name procedure 02-07-2019 Patient encounter no information no name no or ganization name procedure 01-31-2019 Patient encounter no information no name no or ganization name procedure 01-26-2019 Patient encounter no information no name no or ganization name procedure 01-24-2019 Patient encounter no information no name no or ganization name procedure 01-19-2019 Patient encounter no information no name no or ganization name procedure 01-17-2019 Patient encounter no information no name no or ganization name procedure 01-05-2019 Patient encounter no information no name no or ganization name procedure 01-05-2019 Patient encounter no information no name no or ganization name procedure 01-03-2019 Patient encounter no information no name no or ganization name - procedure 01-04-2019 01-03-2019 Patient encounter no information KEILA TUCKER DO [facility] [address] - procedure (no phone) [facility] 01-03-2019 (no phone) 12-29-2018 Patient encounter no information no name no or ganization name procedure 12-27-2018 Patient encounter no information no name no or ganization name procedure 12-18-2018 Patient encounter no information no name no or ganization name procedure 12-13-2018 Patient encounter no information no name no or ganization name procedure 12-11-2018 Patient encounter no information no name no or ganization name procedure 12-08-2018 Patient encounter no information no name no or ganization name procedure 12-06-2018 Patient encounter no information no name no or ganization name procedure 11-29-2018 Patient encounter no information no name no or ganization name procedure 11-24-2018 Patient encounter no information no name no or ganization name procedure 11-22-2018 Patient encounter no information no name no or ganization name procedure 11-15-2018 Patient encounter no information no name no or ganization name procedure 11-10-2018 Patient encounter no information no name no or ganization name procedure 11-06-2018 Patient encounter no information no name no or ganization name procedure 11-03-2018 Patient encounter no information no name no or ganization name procedure 11-01-2018 Patient encounter no information no name no or ganization name procedure 10-23-2018 Patient encounter no information no name no or ganization name procedure 10-21-2018 Patient encounter no information no name no or ganization name - procedure 10-23-2018 10-16-2018 Patient encounter no information no name no or ganization name procedure 07-29-2018 Patient encounter no information KEILA TUCKER DO [facility] [address] procedure (no phone) [facility] (no phone) 01-09-2018 Patient encounter no information KRISTIAN Gutierrez [facility] [address] - procedure (no phone) [facility] 01-10-2018 (no phone) 12-19-2017 Patient encounter no information KEILA TUCKER DO [facility] [address] procedure (no phone) [facility] (no phone) 10-23-2018 Registered Recurring no information KEILA Ritter organization name Medical Equipment The data below is from unstructured sourcesNo Medical Equipment Information available Payers Normalized Payer Value [facility] [id number]) Unknown no information ([id number]) Evaluation note Note Type Note Facility Evaluation No Assessments Information Available A scension note [facility] ([id number]) Advance Directives Directive Response Recor ded Date/Time Advance Directives No 1:31pm Directive Response Recor ded Date/Time Advance Directives No 1:31pm Resuscitation Status Full Code 12/12/15 1:31pm Directive Response Recor ded Date/Time Advance Directives No 10:15am Resuscitation Status Full Code 06/22/18 10:15am Directive Response Recor ded Date/Time Advance Directives No 7:17pm Resuscitation Status Full Code 10/21/18 7:17pm Directive Response Recor ded Date/Time Advance Directives No 7:17pm Advance Directive Response Recorded Date/Time Advance Directives No Serafin granados 2018 7:17pm Discharge Instructions No hospital discharge instructions.No hospital discharge instructions.No hospital discharge instruction information available.No hospital discharge instruction information available.No hospital discharge instruction information available.No hospital discharge instruction information available.No hospital discharge instruction information available. Chief Complaint and Reason for Visit Chief Complaint DISUSE MYOPATHY Reason for Visit Ischiorectal absces s Endocarditis CAD (coronary artery disease) Hx of CABG History of heart valve replacement Debility Diabetes Acute renal failure on dialysis Anemia Depression Loose stools Tracheostomy in place Chief Complaint GASTIRITS WITH COFFE E-GROUND EMESIS, IDDM Reason for Visit CAD (coronary arter y disease) Hx of CABG History of heart valve replacement Debility Anemia Depression Debility Depression Acute renal failure on dialysis Hematemesis Thrombocytopenia UTI (urinary tract infection) Additional Source Comments This clinical document has been generated using [employer] software that has been certified by the Office of the National Coordinator for Health Information Technology (ONC 15.99.04.3023.Diam.[id number]) and the National Committee for Project/Production Manager Imaging (NCQA, as an eMeasure certified technology). FOR RECORDS PERTAINING TO PATIENTS WHO ARE OR HAVE BEEN ENROLLED IN A CHEMICAL D EPENDENCY/SUBSTANCE ABUSE PROGRAM, SOME INFORMATION MAY BE OMITTED. This clinica l summary was aggregated from multiple sources. Caution should be exercised in using it in the provision of clinical care. This summary normalizes information from multiple sources, and as a consequence, information in this document may ma terially change the coding, format and clinical context of patient data. In chad tion, data may be omitted in some cases. CLINICAL DECISIONS SHOULD BE BASED ON T HE PRIMARY CLINICAL RECORDS. [employer] provides no warranty or guara ntee of the accuracy or completeness of information in this document.The followi ng information is based on time limited clinical information
--- OUTSIDE RECORDS SUMMARY | 2020-04-18 05:28 | XMS REPORT | Encounter Summary ---
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 Patient has adequate resources for natty and post Transplant care. [facility] Assistance of $618 per month has been taken in to consideration on his Vish baker Assessment. MM 11/16/19 UP ARTIST documented in this encounter Plan of Treatment Not on filedocumented as of this encounter Visit Diagnoses Not on filedocumented in this encounter
--- OUTSIDE RECORDS SUMMARY | 2020-04-18 05:29 | XMS REPORT | Continuity of Care Document ---
Author Organization Unknown Address Unknown Phone Unavailable Allergies Active Description Code Type Severity Reaction Onset Reported/Identified Relationship to Patient Clinical Status Yes No Known Drug Allergies [id number] Drug Allergy Unknown N/A 12/12/2015 Medications There is no data. Problems Date Dx Coded Attending Type Code Diagnosis Diagnosed By 09/15/1537 KEILA TUCKER DO, Ot E11.9 TYPE 2 DIABETES MELLITUS WITHOUT COMPLIC 09/15/1537 KEILA TUCKER DO, Ot 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 09/15/1537 KEILA TUCKER DO, Ot I12.0 HYP 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 09/15/1537 KEILA TUCKER DO, Ot K21.9 GASTRO-ESOPHAGEAL REFLUX DISEASE WITHOUT 09/15/1537 KEILA TUCKER DO, Ot 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 09/15/1537 KEILA TUCKER DO, Ot Z86.73 PRSNL HX OF TIA (TIA), AND CEREB INFRC W 09/15/1537 KEILA TUCKER DO, Ot Z99.2 DEPENDENCE ON RENAL DIALYSIS 01/09/2015 Ot 782.1 12/12/2015 Ot 782.1 12/12/2015 LALY ALAMO Ot F17.210 NICOTINE DEPENDENCE, CIGARETTES, UNCOMPL 12/12/2015 LALY ALAMO Ot S01.01XA LACERATION WITHOUT FOREIGN BODY OF SCALP 12/12/2015 LALY ALAMO Ot W22.09XA STRIKING AGAINST OTHER STATIONARY OBJECT 12/12/2015 LALY ALAMO Ot Y92.017 GARDEN OR YARD IN SINGLE-FAMILY (PRIVATE 12/12/2015 LALY ALAMO Ot Y99.8 OTHER EXTERNAL CAUSE STATUS 12/12/2015 LALY ALAMO Ot Z 23 ENCOUNTER FOR IMMUNIZATION 12/12/2015 Ot 782.1 12/12/2015 Ot 782.1 12/19/2015 AYAN PHILLIPS, KHALIDA Gutierrez Ot S01.01XD LACERATION WITHOUT FOREIGN BODY OF SCALP 01/04/2018 TUCKER KEILA CRESPO Ot R07.9 CHEST PAIN, UNSPECIFIED 01/10/2018 BEBETO MILLS MD Ot E11.9 TYPE 2 DIABETES MELLITUS WITHOUT COMPLIC 01/10/2018 BEBETO MILLS MD Ot I1 0 ESSENTIAL (PRIMARY) HYPERTENSION 01/10/2018 BEBETO MILLS MD Ot I35.8 OTHER NONRHEUMATIC AORTIC VALVE DISORDER 01/10/2018 BEBETO MILLS MD Ot K61.3 ISCHIORECTAL ABSCESS 01/10/2018 BEBETO MILLS MD Ot Z11.2 ENCOUNTER FOR SCREENING FOR OTHER BACTER 01/10/2018 BEBETO MILLS MD Ot Z79.84 SENIOR CARE (CURRENT) USE OF ORAL HYPOGLYC 01/10/2018 BEBETO MILLS MD Ot Z79.899 OTHER SENIOR CARE (CURRENT) DRUG THERAPY 03/28/2018 BEBETO MILLS MD Ot E11.9 TYPE 2 DIABETES MELLITUS WITHOUT COMPLIC 03/28/2018 BEBETO MILLS MD Ot I1 0 ESSENTIAL (PRIMARY) HYPERTENSION 03/28/2018 BEBETO MILLS MD Ot I35.8 OTHER NONRHEUMATIC AORTIC VALVE DISORDER 03/28/2018 BEBETO MILLS MD Ot K61.3 ISCHIORECTAL ABSCESS 03/28/2018 BEBETO MILLS MD Ot Z11.2 ENCOUNTER FOR SCREENING FOR OTHER BACTER 03/28/2018 BEBETO MILLS MD Ot Z79.84 SENIOR CARE (CURRENT) USE OF ORAL HYPOGLYC 03/28/2018 BEBETO MILLS MD Ot Z79.899 OTHER HIGH PRESSURE FIRER (CURRENT) DRUG THERAPY 03/30/2018 BEBETO MILLS MD Ot E11.9 TYPE 2 DIABETES MELLITUS WITHOUT COMPLIC 03/30/2018 BEBETO MILLS MD Ot I1 0 ESSENTIAL (PRIMARY) HYPERTENSION 03/30/2018 BEBETO MILLS MD Ot I35.8 OTHER NONRHEUMATIC AORTIC VALVE DISORDER 03/30/2018 BEBETO MILLS MD Ot K61.3 ISCHIORECTAL ABSCESS 03/30/2018 BEBETO MILLS MD Ot Z11.2 ENCOUNTER FOR SCREENING FOR OTHER BACTER 03/30/2018 BEBETO MILLS MD Ot Z79.84 HIGH PRESSURE FIRER (CURRENT) USE OF ORAL HYPOGLYC 03/30/2018 GENE PHILLIPS, BEBETO Mccarty Ot Z79.899 OTHER HIGH PRESSURE FIRER (CURRENT) DRUG THERAPY 07/01/2018 FISH MACIAS MD Ot E11.9 TYPE 2 DIABETES MELLITUS WITHOUT COMPLIC 07/01/2018 FISH MACIAS MD Ot 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 07/01/2018 FISH MACIAS MD E Ot G72.8 1 CRITICAL ILLNESS MYOPATHY 07/01/2018 FISH MACIAS MD E Ot I12.0 HYP 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 07/01/2018 FISH MACIAS MD Ot I25.1 0 ATHSCL HEART DISEASE OF [place] CORONARY 07/01/2018 FISH MACIAS MD Ot I25.2 OLD MYOCARDIAL INFARCTION 07/01/2018 FISH MACIAS MD Ot I48.9 1 UNSPECIFIED ATRIAL FIBRILLATION 07/01/2018 FISH MACIAS MD Ot 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, [place] 07/01/2018 FISH MACIAS MD E Ot L89.1 54 PRESSURE ULCER OF [place], STAGE 4 07/01/2018 FISH MACIAS MD E Ot 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 07/01/2018 FISH MACIAS MD Ot Z79.4 SENIOR CARE (CURRENT) USE OF INSULIN 07/01/2018 FISH MACIAS MD E Ot 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 07/01/2018 FISH MACIAS MD E Ot Z93.1 GASTROSTOMY STATUS 07/01/2018 FISH MACIAS MD E Ot Z95.2 PRESENCE OF PROSTHETIC HEART VALVE 07/01/2018 FISH MACIAS MD E Ot Z95.5 PRESENCE OF CORONARY ANGIOPLASTY IMPLANT 07/01/2018 FISH MACIAS MD E Ot Z99.2 DEPENDENCE ON RENAL DIALYSIS 07/02/2018 FISH MACIAS MD Ot E11.9 TYPE 2 DIABETES MELLITUS WITHOUT COMPLIC 07/02/2018 FISH MACIAS MD Ot 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 07/02/2018 FISH MACIAS MD E Ot G72.8 1 CRITICAL ILLNESS MYOPATHY 07/02/2018 FISH MACIAS MD Ot I12.0 HYP 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 07/02/2018 FISH MACIAS MD Ot I25.1 0 ATHSCL HEART DISEASE OF [place] CORONARY 07/02/2018 FISH MACIAS MD E Ot I25.2 OLD MYOCARDIAL INFARCTION 07/02/2018 FISH MACIAS MD E Ot I48.9 1 UNSPECIFIED ATRIAL FIBRILLATION 07/02/2018 FISH MACIAS MD E Ot 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, [place] 07/02/2018 FISH MACIAS MD E Ot L89.1 54 PRESSURE ULCER OF [place], STAGE 4 07/02/2018 FISH MACIAS MD Ot 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 07/02/2018 FISH MACIAS MD E Ot Z79.4 HIGH PRESSURE FIRER (CURRENT) USE OF INSULIN 07/02/2018 FISH MACIAS MD E Ot 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 07/02/2018 FISH MACIAS MD E Ot Z93.1 GASTROSTOMY STATUS 07/02/2018 FISH MACIAS MD E Ot Z95.2 PRESENCE OF PROSTHETIC HEART VALVE 07/02/2018 FISH MACIAS MD E Ot Z95.5 PRESENCE OF CORONARY ANGIOPLASTY IMPLANT 07/02/2018 FISH MACIAS MD E Ot Z99.2 DEPENDENCE ON RENAL DIALYSIS 07/03/2018 FISH MACIAS MD E Ot E11.9 TYPE 2 DIABETES MELLITUS WITHOUT COMPLIC 07/03/2018 TAMY MACIAS MDIC E Ot 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 07/03/2018 TAMY MACIAS MDIC E Ot G72.8 1 CRITICAL ILLNESS MYOPATHY 07/03/2018 FISH MACIAS MD E Ot I12.0 HYP 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 07/03/2018 FISH MACIAS MD E Ot I25.1 0 ATHSCL HEART DISEASE OF [place] CORONARY 07/03/2018 FISH MACIAS MD E Ot I25.2 OLD MYOCARDIAL INFARCTION 07/03/2018 FISH MACIAS MD E Ot I48.9 1 UNSPECIFIED ATRIAL FIBRILLATION 07/03/2018 FISH MACIAS MD E Ot 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, [place] 07/03/2018 FISH MACIAS MD E Ot L89.1 54 PRESSURE ULCER OF [place] REG[place], STAGE 4 07/03/2018 FISH MACIAS MD E Ot 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 07/03/2018 FISH MACIAS MD E Ot Z79.4 HIGH PRESSURE FIRER (CURRENT) USE OF INSULIN 07/03/2018 FISH MACIAS MD E Ot 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 07/03/2018 FISH MACIAS MD E Ot Z93.1 GASTROSTOMY STATUS 07/03/2018 FISH MACIAS MD E Ot Z95.2 PRESENCE OF PROSTHETIC HEART VALVE 07/03/2018 FISH MACIAS MD E Ot Z95.5 PRESENCE OF CORONARY ANGIOPLASTY IMPLANT 07/03/2018 FISH MACIAS MD E Ot Z99.2 DEPENDENCE ON RENAL DIALYSIS 07/04/2018 FISH MACIAS MD E Ot E11.9 TYPE 2 DIABETES MELLITUS WITHOUT COMPLIC 07/04/2018 FISH MACIAS MD E Ot 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 07/04/2018 FISH MACIAS MD E Ot G72.8 1 CRITICAL ILLNESS MYOPATHY 07/04/2018 FISH MACIAS MD E Ot I12.0 HYP 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 07/04/2018 FISH AMCIAS MD E Ot I25.1 0 ATHSCL HEART DISEASE OF [place] CORONARY 07/04/2018 FISH MACIAS MD E Ot I25.2 OLD MYOCARDIAL INFARCTION 07/04/2018 FISH MACIAS MD E Ot I48.9 1 UNSPECIFIED ATRIAL FIBRILLATION 07/04/2018 FISH MACIAS MD E Ot 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, [place] 07/04/2018 FISH MACIAS MD E Ot L89.1 54 PRESSURE ULCER OF [place], STAGE 4 07/04/2018 FISH MACIAS MD E Ot 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 07/04/2018 FISH MACIAS MD E Ot Z79.4 HIGH PRESSURE FIRER (CURRENT) USE OF INSULIN 07/04/2018 FISH MACIAS MD E Ot 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 07/04/2018 FISH MACIAS MD E Ot Z93.1 GASTROSTOMY STATUS 07/04/2018 FISH MACIAS MD E Ot Z95.2 PRESENCE OF PROSTHETIC HEART VALVE 07/04/2018 FISH MACIAS MD E Ot Z95.5 PRESENCE OF CORONARY ANGIOPLASTY IMPLANT 07/04/2018 FISH MACIAS MD E Ot Z99.2 DEPENDENCE ON RENAL DIALYSIS 07/05/2018 FISH MACIAS MD E Ot E11.9 TYPE 2 DIABETES MELLITUS WITHOUT COMPLIC 07/05/2018 FISH MACIAS MD E Ot 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 07/05/2018 FISH MACIAS MD E Ot G72.8 1 CRITICAL ILLNESS MYOPATHY 07/05/2018 FISH MACIAS MD E Ot I12.0 HYP 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 07/05/2018 FISH MACIAS MD E Ot I25.1 0 ATHSCL HEART DISEASE OF [place] CORONARY 07/05/2018 FISH MACIAS MD E Ot I25.2 OLD MYOCARDIAL INFARCTION 07/05/2018 FISH MACIAS MD E Ot I48.9 1 UNSPECIFIED ATRIAL FIBRILLATION 07/05/2018 FISH MACIAS MD E Ot 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, [place] 07/05/2018 TAMY MACIAS MDIC E Ot L89.1 54 PRESSURE ULCER OF [place] REG[place], STAGE 4 07/05/2018 FISH MACIAS MD E Ot 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 07/05/2018 FISH MACIAS MD E Ot Z79.4 SENIOR CARE (CURRENT) USE OF INSULIN 07/05/2018 FISH MACIAS MD E Ot 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 07/05/2018 FISH MACIAS MD E Ot Z93.1 GASTROSTOMY STATUS 07/05/2018 TAMY MACIAS MDIC E Ot Z95.2 PRESENCE OF PROSTHETIC HEART VALVE 07/05/2018 FISH MACIAS MD E Ot Z95.5 PRESENCE OF CORONARY ANGIOPLASTY IMPLANT 07/05/2018 FISH MACIAS MD E Ot Z99.2 DEPENDENCE ON RENAL DIALYSIS 07/06/2018 TAMY MACIAS MDIC E Ot E11.9 TYPE 2 DIABETES MELLITUS WITHOUT COMPLIC 07/06/2018 TAMY MACIAS MDIC E Ot 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 07/06/2018 TAYM MACIAS MDIC E Ot G72.8 1 CRITICAL ILLNESS MYOPATHY 07/06/2018 FISH MACIAS MD E Ot I12.0 HYP 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 07/06/2018 FISH MACIAS MD E Ot I25.1 0 ATHSCL HEART DISEASE OF [place] CORONARY 07/06/2018 FISH MACIAS MD E Ot I25.2 OLD MYOCARDIAL INFARCTION 07/06/2018 FISH MACIAS MD E Ot I48.9 1 UNSPECIFIED ATRIAL FIBRILLATION 07/06/2018 TAMY MACIAS MDIC E Ot 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, [place] 07/06/2018 TAMY MACIAS MDIC E Ot L89.1 54 PRESSURE ULCER OF [place], STAGE 4 07/06/2018 TAMY MACIAS MDIC E Ot 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 07/06/2018 FISH MACIAS MD Ot Z79.4 HIGH PRESSURE FIRER (CURRENT) USE OF INSULIN 07/06/2018 FISH MACIAS MD Ot 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 07/06/2018 FISH MACIAS MD Ot Z93.1 GASTROSTOMY STATUS 07/06/2018 FISH MACIAS MD Ot Z95.2 PRESENCE OF PROSTHETIC HEART VALVE 07/06/2018 FISH MACIAS MD Ot Z95.5 PRESENCE OF CORONARY ANGIOPLASTY IMPLANT 07/06/2018 FISH MACIAS MD E Ot Z99.2 DEPENDENCE ON RENAL DIALYSIS 07/07/2018 FISH MACIAS MD E Ot E11.9 TYPE 2 DIABETES MELLITUS WITHOUT COMPLIC 07/07/2018 FISH MACIAS MD Ot 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 07/07/2018 FISH MACIAS MD E Ot G72.8 1 CRITICAL ILLNESS MYOPATHY 07/07/2018 FISH MACIAS MD E Ot I12.0 HYP 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 07/07/2018 FISH MACIAS MD E Ot I25.1 0 ATHSCL HEART DISEASE OF [place] CORONARY 07/07/2018 FISH MACIAS MD E Ot I25.2 OLD MYOCARDIAL INFARCTION 07/07/2018 FISH MACIAS MD E Ot I48.9 1 UNSPECIFIED ATRIAL FIBRILLATION 07/07/2018 FISH MACIAS MD E Ot 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, [place] 07/07/2018 FISH MACIAS MD E Ot L89.1 54 PRESSURE ULCER OF [place], STAGE 4 07/07/2018 FISH MACIAS MD E Ot 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 07/07/2018 FISH MACIAS MD Ot Z79.4 SENIOR CARE (CURRENT) USE OF INSULIN 07/07/2018 FISH MACIAS MD Ot 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 07/07/2018 FISH MACIAS MD Ot Z93.1 GASTROSTOMY STATUS 07/07/2018 FISH MACIAS MD E Ot Z95.2 PRESENCE OF PROSTHETIC HEART VALVE 07/07/2018 FISH MACIAS MD Ot Z95.5 PRESENCE OF CORONARY ANGIOPLASTY IMPLANT 07/07/2018 FISH MACIAS MD E Ot Z99.2 DEPENDENCE ON RENAL DIALYSIS 07/08/2018 FISH MACIAS MD E Ot E11.9 TYPE 2 DIABETES MELLITUS WITHOUT COMPLIC 07/08/2018 FISH MACIAS MD E Ot 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 07/08/2018 FISH MACIAS MD E Ot G72.8 1 CRITICAL ILLNESS MYOPATHY 07/08/2018 FISH MACIAS MD E Ot I12.0 HYP 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 07/08/2018 FISH MACIAS MD E Ot I25.1 0 ATHSCL HEART DISEASE OF [place] CORONARY 07/08/2018 FISH MACIAS MD E Ot I25.2 OLD MYOCARDIAL INFARCTION 07/08/2018 FISH MACIAS MD E Ot I48.9 1 UNSPECIFIED ATRIAL FIBRILLATION 07/08/2018 FISH MACIAS MD E Ot 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, [place] 07/08/2018 FISH MACIAS MD E Ot L89.1 54 PRESSURE ULCER OF [place], STAGE 4 07/08/2018 FISH MACIAS MD E Ot 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 07/08/2018 FISH MACIAS MD E Ot Z79.4 SENIOR CARE (CURRENT) USE OF INSULIN 07/08/2018 FISH MACIAS MD E Ot 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 07/08/2018 FISH MACIAS MD E Ot Z93.1 GASTROSTOMY STATUS 07/08/2018 FISH MACIAS MD E Ot Z95.2 PRESENCE OF PROSTHETIC HEART VALVE 07/08/2018 FISH MACIAS MD E Ot Z95.5 PRESENCE OF CORONARY ANGIOPLASTY IMPLANT 07/08/2018 FISH MACIAS MD E Ot Z99.2 DEPENDENCE ON RENAL DIALYSIS 07/09/2018 FISH MACIAS MD E Ot E11.9 TYPE 2 DIABETES MELLITUS WITHOUT COMPLIC 07/09/2018 FISH MACIAS MD E Ot 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 07/09/2018 FISH MACIAS MD E Ot G72.8 1 CRITICAL ILLNESS MYOPATHY 07/09/2018 FISH MACIAS MD Ot I12.0 HYP 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 07/09/2018 FISH MACIAS MD E Ot I25.1 0 ATHSCL HEART DISEASE OF [place] CORONARY 07/09/2018 FISH MACIAS MD E Ot I25.2 OLD MYOCARDIAL INFARCTION 07/09/2018 FISH MACIAS MD E Ot I48.9 1 UNSPECIFIED ATRIAL FIBRILLATION 07/09/2018 MACIAS MD, FISH E Ot 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, [place] 07/09/2018 TAMY MACIAS MDIC E Ot L89.1 54 PRESSURE ULCER OF [place], STAGE 4 07/09/2018 FISH MACIAS MD E Ot 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 07/09/2018 TAMY MACIAS MDIC E Ot Z79.4 SENIOR CARE (CURRENT) USE OF INSULIN 07/09/2018 FISH MACIAS MD E Ot 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 07/09/2018 FISH MACIAS MD E Ot Z93.1 GASTROSTOMY STATUS 07/09/2018 FISH MACIAS MD E Ot Z95.2 PRESENCE OF PROSTHETIC HEART VALVE 07/09/2018 FISH MACIAS MD E Ot Z95.5 PRESENCE OF CORONARY ANGIOPLASTY IMPLANT 07/09/2018 FISH MACIAS MD E Ot Z99.2 DEPENDENCE ON RENAL DIALYSIS 07/10/2018 TAMY MACIAS MDIC E Ot E11.9 TYPE 2 DIABETES MELLITUS WITHOUT COMPLIC 07/10/2018 TAMY MACIAS MDIC E Ot 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 07/10/2018 TAMY MACIAS MDIC E Ot G72.8 1 CRITICAL ILLNESS MYOPATHY 07/10/2018 FISH MACIAS MD E Ot I12.0 HYP 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 07/10/2018 FISH MACIAS MD E Ot I25.1 0 ATHSCL HEART DISEASE OF [place] CORONARY 07/10/2018 TAMY AMCIAS MDIC E Ot I25.2 OLD MYOCARDIAL INFARCTION 07/10/2018 TAMY MACIAS MDIC E Ot I48.9 1 UNSPECIFIED ATRIAL FIBRILLATION 07/10/2018 FISH MACIAS MD E Ot 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, [place] 07/10/2018 TAMY MACIAS MDIC E Ot L89.1 54 PRESSURE ULCER OF [place], STAGE 4 07/10/2018 FISH MACIAS MD E Ot 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 07/10/2018 FISH MACIAS MD E Ot Z79.4 HIGH PRESSURE FIRER (CURRENT) USE OF INSULIN 07/10/2018 TAMY MACIAS MDIC E Ot 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 07/10/2018 FISH MACIAS MD E Ot Z93.1 GASTROSTOMY STATUS 07/10/2018 FISH MACIAS MD E Ot Z95.2 PRESENCE OF PROSTHETIC HEART VALVE 07/10/2018 FISH MACIAS MD E Ot Z95.5 PRESENCE OF CORONARY ANGIOPLASTY IMPLANT 07/10/2018 FISH MACIAS MD E Ot Z99.2 DEPENDENCE ON RENAL DIALYSIS 07/11/2018 FISH MACIAS MD E Ot E11.9 TYPE 2 DIABETES MELLITUS WITHOUT COMPLIC 07/11/2018 FISH MACIAS MD E Ot 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 07/11/2018 FISH MACIAS MD E Ot G72.8 1 CRITICAL ILLNESS MYOPATHY 07/11/2018 FISH MACIAS MD E Ot I12.0 HYP 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 07/11/2018 FISH MACIAS MD E Ot I25.1 0 ATHSCL HEART DISEASE OF [place] CORONARY 07/11/2018 FISH MACIAS MD E Ot I25.2 OLD MYOCARDIAL INFARCTION 07/11/2018 FISH MACIAS MD E Ot I48.9 1 UNSPECIFIED ATRIAL FIBRILLATION 07/11/2018 FISH MACIAS MD E Ot 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, [place] 07/11/2018 FISH MACIAS MD E Ot L89.1 54 PRESSURE ULCER OF [place], STAGE 4 07/11/2018 FISH MACIAS MD E Ot 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 07/11/2018 FISH MACIAS MD E Ot Z79.4 HIGH PRESSURE FIRER (CURRENT) USE OF INSULIN 07/11/2018 FISH MACIAS MD E Ot 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 07/11/2018 FISH MACIAS MD E Ot Z93.1 GASTROSTOMY STATUS 07/11/2018 FISH MACIAS MD E Ot Z95.2 PRESENCE OF PROSTHETIC HEART VALVE 07/11/2018 FISH MACIAS MD E Ot Z95.5 PRESENCE OF CORONARY ANGIOPLASTY IMPLANT 07/11/2018 FISH MACIAS MD E Ot Z99.2 DEPENDENCE ON RENAL DIALYSIS 07/12/2018 FISH MACIAS MD Ot E11.9 TYPE 2 DIABETES MELLITUS WITHOUT COMPLIC 07/12/2018 FISH MACIAS MD Ot 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 07/12/2018 FISH MACIAS MD E Ot G72.8 1 CRITICAL ILLNESS MYOPATHY 07/12/2018 FISH MACIAS MD E Ot I12.0 HYP 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 07/12/2018 FISH MACIAS MD E Ot I25.1 0 ATHSCL HEART DISEASE OF [place] CORONARY 07/12/2018 FISH MACIAS MD E Ot I25.2 OLD MYOCARDIAL INFARCTION 07/12/2018 TAMY MACIAS MDIC E Ot I48.9 1 UNSPECIFIED ATRIAL FIBRILLATION 07/12/2018 FISH MACIAS MD E Ot 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, [place] 07/12/2018 FISH MACIAS MD E Ot L89.1 54 PRESSURE ULCER OF [place], STAGE 4 07/12/2018 FISH MACIAS MD E Ot 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 07/12/2018 FISH MACIAS MD E Ot Z79.4 HIGH PRESSURE FIRER (CURRENT) USE OF INSULIN 07/12/2018 FISH MACIAS MD E Ot 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 07/12/2018 FISH MACIAS MD E Ot Z93.1 GASTROSTOMY STATUS 07/12/2018 FISH MACIAS MD E Ot Z95.2 PRESENCE OF PROSTHETIC HEART VALVE 07/12/2018 FISH MACIAS MD E Ot Z95.5 PRESENCE OF CORONARY ANGIOPLASTY IMPLANT 07/12/2018 FISH MACIAS MD E Ot Z99.2 DEPENDENCE ON RENAL DIALYSIS 07/13/2018 FISH MACIAS MD E Ot E11.9 TYPE 2 DIABETES MELLITUS WITHOUT COMPLIC 07/13/2018 TAMY MACIAS MDIC E Ot 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 07/13/2018 TAMY MACIAS MDIC E Ot G72.8 1 CRITICAL ILLNESS MYOPATHY 07/13/2018 FISH MACIAS MD E Ot I12.0 HYP 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 07/13/2018 TAMY MACIAS MDIC E Ot I25.1 0 ATHSCL HEART DISEASE OF [place] CORONARY 07/13/2018 FISH MACIAS MD E Ot I25.2 OLD MYOCARDIAL INFARCTION 07/13/2018 FISH MACIAS MD E Ot I48.9 1 UNSPECIFIED ATRIAL FIBRILLATION 07/13/2018 FISH MACIAS MD E Ot 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, [place] 07/13/2018 FISH MACIAS MD E Ot L89.1 54 PRESSURE ULCER OF [place], STAGE 4 07/13/2018 FISH MACIAS MD E Ot 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 07/13/2018 FISH MACIAS MD E Ot Z79.4 HIGH PRESSURE FIRER (CURRENT) USE OF INSULIN 07/13/2018 FISH MACIAS MD E Ot 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 07/13/2018 FISH MACIAS MD E Ot Z93.1 GASTROSTOMY STATUS 07/13/2018 FISH MACIAS MD E Ot Z95.2 PRESENCE OF PROSTHETIC HEART VALVE 07/13/2018 FISH MACIAS MD E Ot Z95.5 PRESENCE OF CORONARY ANGIOPLASTY IMPLANT 07/13/2018 FISH MACIAS MD E Ot Z99.2 DEPENDENCE ON RENAL DIALYSIS 07/14/2018 FISH MACIAS MD E Ot E11.9 TYPE 2 DIABETES MELLITUS WITHOUT COMPLIC 07/14/2018 FISH MACIAS MD E Ot 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 07/14/2018 FISH MACIAS MD E Ot G72.8 1 CRITICAL ILLNESS MYOPATHY 07/14/2018 FISH MACIAS MD E Ot I12.0 HYP 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 07/14/2018 FISH MACIAS MD E Ot I25.1 0 ATHSCL HEART DISEASE OF [place] CORONARY 07/14/2018 FISH MACIAS MD E Ot I25.2 OLD MYOCARDIAL INFARCTION 07/14/2018 FISH MACIAS MD E Ot I48.9 1 UNSPECIFIED ATRIAL FIBRILLATION 07/14/2018 FISH MACIAS MD E Ot 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, [place] 07/14/2018 FISH MACIAS MD E Ot L89.1 54 PRESSURE ULCER OF [place] REG[place], STAGE 4 07/14/2018 FISH MACIAS MD E Ot 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 07/14/2018 FISH MACIAS MD E Ot Z79.4 HIGH PRESSURE FIRER (CURRENT) USE OF INSULIN 07/14/2018 FISH MACIAS MD E Ot 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 07/14/2018 FISH MACIAS MD E Ot Z93.1 GASTROSTOMY STATUS 07/14/2018 FISH MACIAS MD E Ot Z95.2 PRESENCE OF PROSTHETIC HEART VALVE 07/14/2018 FISH MACIAS MD E Ot Z95.5 PRESENCE OF CORONARY ANGIOPLASTY IMPLANT 07/14/2018 FISH MACIAS MD E Ot Z99.2 DEPENDENCE ON RENAL DIALYSIS 07/15/2018 FISH MACIAS MD E Ot E11.9 TYPE 2 DIABETES MELLITUS WITHOUT COMPLIC 07/15/2018 FISH MACIAS MD E Ot 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 07/15/2018 FISH MACIAS MD E Ot G72.8 1 CRITICAL ILLNESS MYOPATHY 07/15/2018 FISH MACIAS MD E Ot I12.0 HYP 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 07/15/2018 FISH MACIAS MD E Ot I25.1 0 ATHSCL HEART DISEASE OF [place] CORONARY 07/15/2018 FISH MACIAS MD E Ot I25.2 OLD MYOCARDIAL INFARCTION 07/15/2018 FISH MACIAS MD E Ot I48.9 1 UNSPECIFIED ATRIAL FIBRILLATION 07/15/2018 FISH MACIAS MD E Ot 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, [place] 07/15/2018 FISH MACIAS MD E Ot L89.1 54 PRESSURE ULCER OF SACRAL REGION, STAGE 4 07/15/2018 FISH MACIAS MD E Ot 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 07/15/2018 FISH MACIAS MD E Ot Z79.4 HIGH PRESSURE FIRER (CURRENT) USE OF INSULIN 07/15/2018 FISH MACIAS MD E Ot 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 07/15/2018 FISH MACIAS MD E Ot Z93.1 GASTROSTOMY STATUS 07/15/2018 FISH MACIAS MD E Ot Z95.2 PRESENCE OF PROSTHETIC HEART VALVE 07/15/2018 FISH MACIAS MD E Ot Z95.5 PRESENCE OF CORONARY ANGIOPLASTY IMPLANT 07/15/2018 FISH MACIAS MD E Ot Z99.2 DEPENDENCE ON RENAL DIALYSIS 07/16/2018 TAMY MACAIS MDIC E Ot E11.9 TYPE 2 DIABETES MELLITUS WITHOUT COMPLIC 07/16/2018 TAMY MACIAS MDIC E Ot 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 07/16/2018 TAMY MACIAS MDIC E Ot G72.8 1 CRITICAL ILLNESS MYOPATHY 07/16/2018 FISH MACIAS MD E Ot I12.0 HYP 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 07/16/2018 FISH MACIAS MD E Ot I25.1 0 ATHSCL HEART DISEASE OF [place] CORONARY 07/16/2018 FISH MACIAS MD E Ot I25.2 OLD MYOCARDIAL INFARCTION 07/16/2018 FISH MACIAS MD E Ot I48.9 1 UNSPECIFIED ATRIAL FIBRILLATION 07/16/2018 TAMY MACIAS MDIC E Ot 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, [place] 07/16/2018 FISH MACIAS MD E Ot L89.1 54 PRESSURE ULCER OF [place] REGION, STAGE 4 07/16/2018 FISH MACIAS MD E Ot 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 07/16/2018 FISH MACIAS MD Ot Z79.4 HIGH PRESSURE FIRER (CURRENT) USE OF INSULIN 07/16/2018 FISH MACIAS MD Ot 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 07/16/2018 FISH MACIAS MD Ot Z93.1 GASTROSTOMY STATUS 07/16/2018 FISH MACIAS MD Ot Z95.2 PRESENCE OF PROSTHETIC HEART VALVE 07/16/2018 FISH MACIAS MD Ot Z95.5 PRESENCE OF CORONARY ANGIOPLASTY IMPLANT 07/16/2018 FISH MACIAS MD Ot Z99.2 DEPENDENCE ON RENAL DIALYSIS 07/17/2018 FISH MACIAS MD Ot E11.9 TYPE 2 DIABETES MELLITUS WITHOUT COMPLIC 07/17/2018 FISH MACIAS MD Ot 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 07/17/2018 FISH MACIAS MD E Ot G72.8 1 CRITICAL ILLNESS MYOPATHY 07/17/2018 FISH MACIAS MD Ot I12.0 HYP 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 07/17/2018 FISH MACIAS MD Ot I25.1 0 ATHSCL HEART DISEASE OF [place] CORONARY 07/17/2018 FISH MACIAS MD Ot I25.2 OLD MYOCARDIAL INFARCTION 07/17/2018 FISH MACIAS MD Ot I48.9 1 UNSPECIFIED ATRIAL FIBRILLATION 07/17/2018 FISH MACIAS MD Ot 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, [place] 07/17/2018 FISH MACIAS MD Ot L89.1 54 PRESSURE ULCER OF [place]CRAL REGION, STAGE 4 07/17/2018 FISH MACIAS MD Ot 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 07/17/2018 FISH MACIAS MD Ot Z79.4 SENIOR CARE (CURRENT) USE OF INSULIN 07/17/2018 FISH MACIAS MD Ot 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 07/17/2018 FISH MACIAS MD Ot Z93.1 GASTROSTOMY STATUS 07/17/2018 FISH MACIAS MD Ot Z95.2 PRESENCE OF PROSTHETIC HEART VALVE 07/17/2018 FISH MACIAS MD Ot Z95.5 PRESENCE OF CORONARY ANGIOPLASTY IMPLANT 07/17/2018 FISH MACIAS MD Ot Z99.2 DEPENDENCE ON RENAL DIALYSIS 07/18/2018 FISH MACIAS MD Ot E11.9 TYPE 2 DIABETES MELLITUS WITHOUT COMPLIC 07/18/2018 FISH MACIAS MD E Ot 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 07/18/2018 FISH MACIAS MD E Ot G72.8 1 CRITICAL ILLNESS MYOPATHY 07/18/2018 FISH MACIAS MD E Ot I12.0 HYP 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 07/18/2018 FISH MACIAS MD E Ot I25.1 0 ATHSCL HEART DISEASE OF [place] CORONARY 07/18/2018 FISH MACIAS MD E Ot I25.2 OLD MYOCARDIAL INFARCTION 07/18/2018 FISH MACIAS MD E Ot I48.9 1 UNSPECIFIED ATRIAL FIBRILLATION 07/18/2018 FISH MACIAS MD E Ot 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, [place] 07/18/2018 FISH MACIAS MD E Ot L89.1 54 PRESSURE ULCER OF [place] REGION, STAGE 4 07/18/2018 FISH MACIAS MD Ot 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 07/18/2018 FISH MACIAS MD Ot Z79.4 HIGH PRESSURE FIRER (CURRENT) USE OF INSULIN 07/18/2018 FISH MACIAS MD E Ot 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 07/18/2018 FISH MACIAS MD Ot Z93.1 GASTROSTOMY STATUS 07/18/2018 FISH MACIAS MD E Ot Z95.2 PRESENCE OF PROSTHETIC HEART VALVE 07/18/2018 FISH MACIAS MD E Ot Z95.5 PRESENCE OF CORONARY ANGIOPLASTY IMPLANT 07/18/2018 FISH MACIAS MD E Ot Z99.2 DEPENDENCE ON RENAL DIALYSIS 07/19/2018 FISH MACIAS MD Ot E11.9 TYPE 2 DIABETES MELLITUS WITHOUT COMPLIC 07/19/2018 FISH MACIAS MD E Ot 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 07/19/2018 FISH MACIAS MD Ot G72.8 1 CRITICAL ILLNESS MYOPATHY 07/19/2018 FISH MACIAS MD Ot I12.0 HYP 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 07/19/2018 FISH MACIAS MD Ot I25.1 0 ATHSCL HEART DISEASE OF [place] CORONARY 07/19/2018 FISH MACIAS MD E Ot I25.2 OLD MYOCARDIAL INFARCTION 07/19/2018 FISH MACIAS MD Ot I48.9 1 UNSPECIFIED ATRIAL FIBRILLATION 07/19/2018 FISH MACIAS MD E Ot 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, [place] 07/19/2018 TAMY MACIAS MDIC E Ot L89.1 54 PRESSURE ULCER OF [place], STAGE 4 07/19/2018 FISH MACIAS MD E Ot 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 07/19/2018 FISH MACIAS MD E Ot Z79.4 SENIOR CARE (CURRENT) USE OF INSULIN 07/19/2018 FISH MACIAS MD E Ot 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 07/19/2018 FISH MACIAS MD E Ot Z93.1 GASTROSTOMY STATUS 07/19/2018 FISH MACIAS MD E Ot Z95.2 PRESENCE OF PROSTHETIC HEART VALVE 07/19/2018 FISH MACIAS MD E Ot Z95.5 PRESENCE OF CORONARY ANGIOPLASTY IMPLANT 07/19/2018 FISH MACIAS MD E Ot Z99.2 DEPENDENCE ON RENAL DIALYSIS 07/20/2018 FISH MACIAS MD E Ot E11.9 TYPE 2 DIABETES MELLITUS WITHOUT COMPLIC 07/20/2018 FISH MACIAS MD E Ot 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 07/20/2018 FISH MACIAS MD E Ot G72.8 1 CRITICAL ILLNESS MYOPATHY 07/20/2018 FISH MACIAS MD E Ot I12.0 HYP 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 07/20/2018 FISH MACIAS MD Ot I25.1 0 ATHSCL HEART DISEASE OF [place] CORONARY 07/20/2018 FISH MACIAS MD E Ot I25.2 OLD MYOCARDIAL INFARCTION 07/20/2018 FISH MACIAS MD E Ot I48.9 1 UNSPECIFIED ATRIAL FIBRILLATION 07/20/2018 FISH MACIAS MD E Ot 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, [place] 07/20/2018 FISH MACIAS MD E Ot L89.1 54 PRESSURE ULCER OF [place], STAGE 4 07/20/2018 FISH MACIAS MD Ot 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 07/20/2018 FISH MACIAS MD Ot Z79.4 HIGH PRESSURE FIRER (CURRENT) USE OF INSULIN 07/20/2018 FIHS MACIAS MD E Ot 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 07/20/2018 FISH MACIAS MD E Ot Z93.1 GASTROSTOMY STATUS 07/20/2018 FISH MACIAS MD E Ot Z95.2 PRESENCE OF PROSTHETIC HEART VALVE 07/20/2018 FISH MACIAS MD Ot Z95.5 PRESENCE OF CORONARY ANGIOPLASTY IMPLANT 07/20/2018 FISH MACIAS MD E Ot Z99.2 DEPENDENCE ON RENAL DIALYSIS 07/21/2018 FISH MACIAS MD Ot E11.9 TYPE 2 DIABETES MELLITUS WITHOUT COMPLIC 07/21/2018 FISH MACIAS MD Ot 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 07/21/2018 FISH MACIAS MD E Ot G72.8 1 CRITICAL ILLNESS MYOPATHY 07/21/2018 FISH MACIAS MD E Ot I12.0 HYP 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 07/21/2018 FISH MACIAS MD Ot I25.1 0 ATHSCL HEART DISEASE OF [place] CORONARY 07/21/2018 FISH MACIAS MD Ot I25.2 OLD MYOCARDIAL INFARCTION 07/21/2018 FISH MACIAS MD Ot I48.9 1 UNSPECIFIED ATRIAL FIBRILLATION 07/21/2018 FISH MACIAS MD Ot 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, [place] 07/21/2018 FISH MACIAS MD Ot L89.1 54 PRESSURE ULCER OF [place], STAGE 4 07/21/2018 FISH MACIAS MD Ot 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 07/21/2018 FISH MACIAS MD Ot Z79.4 SENIOR CARE (CURRENT) USE OF INSULIN 07/21/2018 FISH MACIAS MD Ot 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 07/21/2018 FISH MACIAS MD E Ot Z93.1 GASTROSTOMY STATUS 07/21/2018 FISH MACIAS MD E Ot Z95.2 PRESENCE OF PROSTHETIC HEART VALVE 07/21/2018 FISH MACIAS MD Ot Z95.5 PRESENCE OF CORONARY ANGIOPLASTY IMPLANT 07/21/2018 FISH MACIAS MD Ot Z99.2 DEPENDENCE ON RENAL DIALYSIS 07/22/2018 FISH MACIAS MD Ot E11.9 TYPE 2 DIABETES MELLITUS WITHOUT COMPLIC 07/22/2018 FISH MACIAS MD Ot 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 07/22/2018 FISH MACIAS MD Ot G72.8 1 CRITICAL ILLNESS MYOPATHY 07/22/2018 FISH MACIAS MD Ot I12.0 HYP 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 07/22/2018 FISH MACIAS MD Ot I25.1 0 ATHSCL HEART DISEASE OF [place] CORONARY 07/22/2018 FISH MACIAS MD E Ot I25.2 OLD MYOCARDIAL INFARCTION 07/22/2018 FISH MACIAS MD E Ot I48.9 1 UNSPECIFIED ATRIAL FIBRILLATION 07/22/2018 FISH MACIAS MD E Ot 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, [place] 07/22/2018 FISH MACIAS MD E Ot L89.1 54 PRESSURE ULCER OF [place], STAGE 4 07/22/2018 FISH MACIAS MD Ot 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 07/22/2018 FISH MACIAS MD Ot Z79.4 SENIOR CARE (CURRENT) USE OF INSULIN 07/22/2018 FISH MACIAS MD Ot 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 07/22/2018 FISH MACIAS MD Ot Z93.1 GASTROSTOMY STATUS 07/22/2018 FISH MACIAS MD E Ot Z95.2 PRESENCE OF PROSTHETIC HEART VALVE 07/22/2018 FISH MACIAS MD Ot Z95.5 PRESENCE OF CORONARY ANGIOPLASTY IMPLANT 07/22/2018 FISH MACIAS MD E Ot Z99.2 DEPENDENCE ON RENAL DIALYSIS 07/23/2018 FISH MACIAS MD E Ot E11.9 TYPE 2 DIABETES MELLITUS WITHOUT COMPLIC 07/23/2018 FISH MACIAS MD E Ot 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 07/23/2018 FISH MACIAS MD E Ot G72.8 1 CRITICAL ILLNESS MYOPATHY 07/23/2018 FISH MACIAS MD E Ot I12.0 HYP 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 07/23/2018 FISH MACIAS MD E Ot I25.1 0 ATHSCL HEART DISEASE OF [place] CORONARY 07/23/2018 FISH MACIAS MD E Ot I25.2 OLD MYOCARDIAL INFARCTION 07/23/2018 FISH MACIAS MD E Ot I48.9 1 UNSPECIFIED ATRIAL FIBRILLATION 07/23/2018 FISH MACIAS MD E Ot 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, [place] 07/23/2018 FISH MACIAS MD E Ot L89.1 54 PRESSURE ULCER OF [place], STAGE 4 07/23/2018 FISH MACIAS MD E Ot 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 07/23/2018 FISH MACIAS MD E Ot Z79.4 HIGH PRESSURE FIRER (CURRENT) USE OF INSULIN 07/23/2018 FISH MACIAS MD E Ot 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 07/23/2018 FISH MACIAS MD E Ot Z93.1 GASTROSTOMY STATUS 07/23/2018 FISH MACIAS MD E Ot Z95.2 PRESENCE OF PROSTHETIC HEART VALVE 07/23/2018 FISH MACIAS MD E Ot Z95.5 PRESENCE OF CORONARY ANGIOPLASTY IMPLANT 07/23/2018 FISH MACIAS MD E Ot Z99.2 DEPENDENCE ON RENAL DIALYSIS 07/24/2018 FISH MACIAS MD Ot E11.9 TYPE 2 DIABETES MELLITUS WITHOUT COMPLIC 07/24/2018 FISH MACIAS MD E Ot 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 07/24/2018 FISH MACIAS MD E Ot G72.8 1 CRITICAL ILLNESS MYOPATHY 07/24/2018 FISH MACIAS MD E Ot I12.0 HYP 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 07/24/2018 FISH MACIAS MD E Ot I25.1 0 ATHSCL HEART DISEASE OF [place] CORONARY 07/24/2018 FISH MACIAS MD E Ot I25.2 OLD MYOCARDIAL INFARCTION 07/24/2018 FISH MACIAS MD E Ot I48.9 1 UNSPECIFIED ATRIAL FIBRILLATION 07/24/2018 FISH MACIAS MD E Ot 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, [place] 07/24/2018 FISH MACIAS MD E Ot L89.1 54 PRESSURE ULCER OF [place], STAGE 4 07/24/2018 FISH MACIAS MD E Ot 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 07/24/2018 FISH MACIAS MD E Ot Z79.4 SENIOR CARE (CURRENT) USE OF INSULIN 07/24/2018 FISH MACIAS MD E Ot 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 07/24/2018 FISH MACIAS MD E Ot Z93.1 GASTROSTOMY STATUS 07/24/2018 FISH MACIAS MD E Ot Z95.2 PRESENCE OF PROSTHETIC HEART VALVE 07/24/2018 FISH MACIAS MD E Ot Z95.5 PRESENCE OF CORONARY ANGIOPLASTY IMPLANT 07/24/2018 FISH MACIAS MD E Ot Z99.2 DEPENDENCE ON RENAL DIALYSIS 07/25/2018 FISH MACIAS MD E Ot E11.9 TYPE 2 DIABETES MELLITUS WITHOUT COMPLIC 07/25/2018 FISH MACIAS MD E Ot 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 07/25/2018 FISH MACIAS MD E Ot G72.8 1 CRITICAL ILLNESS MYOPATHY 07/25/2018 FISH MACIAS MD E Ot I12.0 HYP 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 07/25/2018 FISH MACIAS MD E Ot I25.1 0 ATHSCL HEART DISEASE OF [place] CORONARY 07/25/2018 FISH MACIAS MD E Ot I25.2 OLD MYOCARDIAL INFARCTION 07/25/2018 FISH MACIAS MD E Ot I48.9 1 UNSPECIFIED ATRIAL FIBRILLATION 07/25/2018 FISH MACIAS MD Ot 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, [place] 07/25/2018 FISH MACIAS MD E Ot L89.1 54 PRESSURE ULCER OF [place], STAGE 4 07/25/2018 FISH MACIAS MD E Ot 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 07/25/2018 FISH MACIAS MD Ot Z79.4 HIGH PRESSURE FIRER (CURRENT) USE OF INSULIN 07/25/2018 FISH MACIAS MD E Ot 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 07/25/2018 FISH MACIAS MD E Ot Z93.1 GASTROSTOMY STATUS 07/25/2018 FISH MACIAS MD E Ot Z95.2 PRESENCE OF PROSTHETIC HEART VALVE 07/25/2018 FISH MACIAS MD E Ot Z95.5 PRESENCE OF CORONARY ANGIOPLASTY IMPLANT 07/25/2018 FISH MACIAS MD E Ot Z99.2 DEPENDENCE ON RENAL DIALYSIS 07/25/2018 FISH MACIAS MD E Ot B37.0 CANDIDAL STOMATITIS 07/25/2018 TAMY MACIAS MDIC E Ot E11.6 49 TYPE 2 DIABETES MELLITUS WITH HYPOGLYCEM 07/25/2018 TAMY MACIAS MDIC E Ot 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 07/25/2018 FISH MCAIAS MD E Ot E87.6 HYPOKALEMIA 07/25/2018 TAMY MACIAS MDIC E Ot F41.9 ANXIETY DISORDER, UNSPECIFIED 07/25/2018 FISH MACIAS MD E Ot G72.8 1 CRITICAL ILLNESS MYOPATHY 07/25/2018 FISH MACIAS MD E Ot I12.0 HYP 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 07/25/2018 FISH MACIAS MD E Ot I25.1 0 ATHSCL HEART DISEASE OF [place] CORONARY 07/25/2018 FISH MACIAS MD E Ot I25.2 OLD MYOCARDIAL INFARCTION 07/25/2018 FISH MACIAS MD E Ot I48.9 1 UNSPECIFIED ATRIAL FIBRILLATION 07/25/2018 FISH MACIAS MD, Ot 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, [place] 07/25/2018 FISH MACIAS MD, Ot L89.1 54 PRESSURE ULCER OF [place], STAGE 4 07/25/2018 FISH MACIAS MD, Ot 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 07/25/2018 FISH MACIAS MD, Ot Z79.4 HIGH PRESSURE FIRER (CURRENT) USE OF INSULIN 07/25/2018 FISH MACIAS MD, Ot 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 07/25/2018 FISH MACIAS MD, Ot Z93.1 GASTROSTOMY STATUS 07/25/2018 FISH MACIAS MD, Ot Z95.2 PRESENCE OF PROSTHETIC HEART VALVE 07/25/2018 FISH MACIAS MD, Ot Z95.5 PRESENCE OF CORONARY ANGIOPLASTY IMPLANT 07/25/2018 FISH MACIAS MD, Ot Z99.2 DEPENDENCE ON RENAL DIALYSIS 07/31/2018 KEILA TUCKER DO Ot R07.9 CHEST PAIN, UNSPECIFIED 08/02/2018 KEILA TUCKER DO Ot R09.3 ABNORMAL SPUTUM 08/09/2018 TIARRA ESPINOSA MD Ot E11. 22 TYPE 2 DIABETES MELLITUS W DIABETIC INDIVIDUALIZED EDUCATION PLAN AIDE 08/09/2018 TIARRA ESPINOSA MD Ot E11. 65 TYPE 2 DIABETES MELLITUS WITH HYPERGLYCE 08/09/2018 TIARRA ESPINOSA MD Ot F32. 9 MAJOR DEPRESSIVE DISORDER, SINGLE EPISOD 08/09/2018 TIARRA ESPINOSA MD Ot I12. 0 HYP 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 08/09/2018 TIARRA ESPINOSA MD Ot K94. 23 GASTROSTOMY MALFUNCTION 08/09/2018 TIARRA ESPINOSA MD, Ot N18. 6 END STAGE RENAL DISEASE 08/09/2018 TIARRA ESPINOSA MD Ot R73. 9 HYPERGLYCEMIA, UNSPECIFIED 08/09/2018 TIARRA ESPINOSA MD, Ot Z79. 4 SENIOR CARE (CURRENT) USE OF INSULIN 08/09/2018 TIARRA ESPINOSA MD Ot Z79. 52 HIGH PRESSURE FIRER (CURRENT) USE OF SYSTEMIC STER 08/09/2018 TIARRA ESPINOSA MD, Ot Z87.820 PERSONAL HISTORY OF TRAUMATIC BRAIN INJU 08/09/2018 TIARRA ESPINOSA MD, Ot Z87.891 PERSONAL HISTORY OF NICOTINE DEPENDENCE 08/09/2018 TIARRA ESPINOSA MD Ot Z90. 89 ACQUIRED ABSENCE OF OTHER ORGANS 08/09/2018 TIARRA ESPINOSA MD Ot Z99. 2 DEPENDENCE ON RENAL DIALYSIS 08/14/2018 TIARRA ESPINOSA MD Ot E11. 22 TYPE 2 DIABETES MELLITUS W DIABETIC INDIVIDUALIZED EDUCATION PLAN AIDE 08/14/2018 TIARRA ESPINOSA MD Ot E11. 65 TYPE 2 DIABETES MELLITUS WITH HYPERGLYCE 08/14/2018 TIARRA ESPINOSA MD Ot F32. 9 MAJOR DEPRESSIVE DISORDER, SINGLE EPISOD 08/14/2018 TIARRA ESPINOSA MD Ot I12. 0 HYP 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 08/14/2018 TIARRA ESPINOSA MD Ot K94. 23 GASTROSTOMY MALFUNCTION 08/14/2018 TIARRA ESPINOSA MD Ot N18. 6 END STAGE RENAL DISEASE 08/14/2018 TIARRA ESPINOSA MD Ot R73. 9 HYPERGLYCEMIA, UNSPECIFIED 08/14/2018 TIARRA ESPINOSA MD Ot Z79. 4 SENIOR CARE (CURRENT) USE OF INSULIN 08/14/2018 TIARRA ESPINOSA MD Ot Z79. 52 SENIOR CARE (CURRENT) USE OF SYSTEMIC STER 08/14/2018 TIARRA ESPINOSA MD Ot Z87.820 PERSONAL HISTORY OF TRAUMATIC BRAIN INJU 08/14/2018 TIARRA ESPINOSA MD Ot Z87.891 PERSONAL HISTORY OF NICOTINE DEPENDENCE 08/14/2018 TIARRA ESPINOSA MD Ot Z90. 89 ACQUIRED ABSENCE OF OTHER ORGANS 08/14/2018 TIARRA ESPINOSA MD Ot Z99. 2 DEPENDENCE ON RENAL DIALYSIS 08/14/2018 TIARRA ESPINOSA MD Ot E11. 22 TYPE 2 DIABETES MELLITUS W DIABETIC INDIVIDUALIZED EDUCATION PLAN AIDE 08/14/2018 TIARRA ESPINOSA MD Ot E11. 65 TYPE 2 DIABETES MELLITUS WITH HYPERGLYCE 08/14/2018 TIARRA ESPINOSA MD Ot F32. 9 MAJOR DEPRESSIVE DISORDER, SINGLE EPISOD 08/14/2018 TIARRA ESPINOSA MD Ot I12. 0 HYP 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 08/14/2018 TIARRA ESPINOSA MD Ot K94. 23 GASTROSTOMY MALFUNCTION 08/14/2018 TIARRA ESPINOSA MD Ot N18. 6 END STAGE RENAL DISEASE 08/14/2018 TIARRA ESPINOSA MD Ot R73. 9 HYPERGLYCEMIA, UNSPECIFIED 08/14/2018 TIARRA ESPINOSA MD, Ot Z79. 4 SENIOR CARE (CURRENT) USE OF INSULIN 08/14/2018 TIARRA ESPINOSA MD, Ot Z79. 52 SENIOR CARE (CURRENT) USE OF SYSTEMIC STER 08/14/2018 TIARRA ESPINOSA MD, Ot Z87.820 PERSONAL HISTORY OF TRAUMATIC BRAIN INJU 08/14/2018 TIARRA ESPINOSA MD, Ot Z87.891 PERSONAL HISTORY OF NICOTINE DEPENDENCE 08/14/2018 TIARRA ESPINOSA MD, Ot Z90. 89 ACQUIRED ABSENCE OF OTHER ORGANS 08/14/2018 TIARRA ESPINOSA MD, Ot Z99. 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 2 DIABETES W DIABETIC AUTONOMIC (PO 10/23/2018 KEILA TUCKER DO, Ot F32.9 MAJOR DEPRESSIVE DISORDER, SINGLE EPISOD 10/23/2018 KEILA TUCKER DO, Ot I25.10 ATHSCL HEART DISEASE OF [place] CORONARY 10/23/2018 KEILA TUCKER DO, Ot I48.91 UNSPECIFIED ATRIAL FIBRILLATION 10/23/2018 KEILA TUCKER DO, Ot K21.9 GASTRO-ESOPHAGEAL REFLUX DISEASE WITHOUT 10/23/2018 KEILA TUCKER DO, Ot K29.71 GASTRITIS, UNSPECIFIED, WITH BLEEDING 10/23/2018 KEILA TUCKER DO, Ot L89.154 PRESSURE ULCER OF [place] REG[place], STAGE 4 10/23/2018 KEILA TUCKER DO, Ot M21.371 FOOT DROP, RIGHT FOOT 10/23/2018 KEILA TUCKER DO, Ot 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 10/23/2018 KEILA TUCKER DO, Ot N39.0 URINARY TRACT INFECTION, SITE NOT SPECIF 10/23/2018 KEILA TUCKER DO, Ot Z79.4 HIGH PRESSURE FIRER (CURRENT) USE OF INSULIN 10/23/2018 KEILA TUCKER DO Ot Z79.52 SENIOR CARE (CURRENT) USE OF SYSTEMIC STER 10/23/2018 KEILA TUCKER DO, Ot Z87.891 PERSONAL HISTORY OF NICOTINE DEPENDENCE 10/23/2018 KEILA TUCKER DO, Ot Z95.1 PRESENCE OF AORTOCORONARY BYPASS GRAFT 10/23/2018 KEILA TUCKER DO, Ot Z95.5 PRESENCE OF CORONARY ANGIOPLASTY IMPLANT 10/23/2018 KEILA TUCKER DO, Ot Z99.2 DEPENDENCE ON RENAL DIALYSIS 10/25/2018 KEILA TUCKER DO Ot R09.3 ABNORMAL SPUTUM 11/02/2018 KEILA TUCKER DO, Ot E11.9 TYPE 2 DIABETES MELLITUS WITHOUT COMPLIC 11/02/2018 KEILA TUCKER DO, Ot I10 ESSENTIAL (PRIMARY) HYPERTENSION 11/02/2018 KEILA TUCKER DO Ot R53.1 WEAKNESS 11/02/2018 KEILA TUCKER DO, Ot Z86.73 PRSNL HX OF TIA (TIA), AND CEREB INFRC W 11/02/2018 KEILA TUCKER DO, Ot E11.9 TYPE 2 DIABETES MELLITUS WITHOUT COMPLIC 11/02/2018 KEILA TUCKER DO Ot I10 ESSENTIAL (PRIMARY) HYPERTENSION 11/02/2018 KEILA TUCKER DO Ot R53.1 WEAKNESS 11/02/2018 KEILA TUCKER DO Ot Z86.73 PRSNL HX OF TIA (TIA), AND CEREB INFRC W 12/08/2018 KEILA TUCKER DO Ot E11.9 TYPE 2 DIABETES MELLITUS WITHOUT COMPLIC 12/08/2018 KEILA TUCKER DO Ot I10 ESSENTIAL (PRIMARY) HYPERTENSION 12/08/2018 KEILA TUCKER DO Ot R53.1 WEAKNESS 12/08/2018 KEILA TUCKER DO Ot Z86.73 PRSNL HX OF TIA (TIA), AND CEREB INFRC W 01/04/2019 KEILA TUCKER DO Ot E11.9 TYPE 2 DIABETES MELLITUS WITHOUT COMPLIC 01/04/2019 KEILA TUCKER DO Ot I10 ESSENTIAL (PRIMARY) HYPERTENSION 01/04/2019 KEILA TUCKER DO Ot R53.1 WEAKNESS 01/04/2019 KEILA TUCKER DO Ot Z86.73 PRSNL HX OF TIA (TIA), AND CEREB INFRC W 01/05/2019 TUCKER DO, KEILA David Ot E11.9 TYPE 2 DIABETES MELLITUS WITHOUT COMPLIC 01/05/2019 TUCKER DOKEILA Ot I10 ESSENTIAL (PRIMARY) HYPERTENSION 01/05/2019 TUCKER DOKEILA Ot R53.1 WEAKNESS 01/05/2019 TUCKER DO, KEILA David Ot Z86.73 PRSNL HX OF TIA (TIA), AND CEREB INFRC W 01/10/2019 TUCKER DO, KEILA David Ot E11.9 TYPE 2 DIABETES MELLITUS WITHOUT COMPLIC 01/10/2019 TUCKER DO, KEILA David Ot I10 ESSENTIAL (PRIMARY) HYPERTENSION 01/10/2019 TUCKER DOKEILA Ot R53.1 WEAKNESS 01/10/2019 TUCKER DOKEILA Ot Z86.73 PRSNL HX OF TIA (TIA), AND CEREB INFRC W 01/10/2019 TUCKER DO, KEILA David Ot E11.9 TYPE 2 DIABETES MELLITUS WITHOUT COMPLIC 01/10/2019 TUCKER DOKEILA Ot I10 ESSENTIAL (PRIMARY) HYPERTENSION 01/10/2019 TUCKER DOKEILA Ot R53.1 WEAKNESS 01/10/2019 TUCKER DO, KEILA David Ot Z86.73 PRSNL HX OF TIA (TIA), AND CEREB INFRC W 01/23/2019 TUCKER DOKEILA Ot E11.9 TYPE 2 DIABETES MELLITUS WITHOUT COMPLIC 01/23/2019 TUCKER DOKEILA Ot I10 ESSENTIAL (PRIMARY) HYPERTENSION 01/23/2019 TUCKER DOKEILA Ot R53.1 WEAKNESS 01/23/2019 TUCKER DOKEILA Ot Z86.73 PRSNL HX OF TIA (TIA), AND CEREB INFRC W 02/05/2019 TUCKER DO, KEILA David Ot E11.9 TYPE 2 DIABETES MELLITUS WITHOUT COMPLIC 02/05/2019 TUCKER DO, KEILA David Ot I10 ESSENTIAL (PRIMARY) HYPERTENSION 02/05/2019 TUCKER DOKEILA Ot R53.1 WEAKNESS 02/05/2019 TUCKER DO, KEILA David Ot Z86.73 PRSNL HX OF TIA (TIA), AND CEREB INFRC W 04/05/2019 TUCKER DO, KEILA David Ot E11.9 TYPE 2 DIABETES MELLITUS WITHOUT COMPLIC 04/05/2019 TUCKER DOKEILA Ot I10 ESSENTIAL (PRIMARY) HYPERTENSION 04/05/2019 TUCKER DOKEILA Ot R53.1 WEAKNESS 04/05/2019 TUCKER DOKEILA Ot Z86.73 PRSNL HX OF TIA (TIA), AND CEREB INFRC W 04/10/2019 TUCKER DOKEILA Ot E11.9 TYPE 2 DIABETES MELLITUS WITHOUT COMPLIC 04/10/2019 TUCKER DOKEILA Ot I10 ESSENTIAL (PRIMARY) HYPERTENSION 04/10/2019 TUCKER DOKEILA Ot R53.1 WEAKNESS 04/10/2019 TUCKER DOKEILA Ot Z86.73 PRSNL HX OF TIA (TIA), AND CEREB INFRC W 04/25/2019 TUCKER DOKEILA Ot E11.9 TYPE 2 DIABETES MELLITUS WITHOUT COMPLIC 04/25/2019 TUCKER DOKEILA Ot I10 ESSENTIAL (PRIMARY) HYPERTENSION 04/25/2019 TUCKER DOKEILA Ot R53.1 WEAKNESS 04/25/2019 TUCKER DOKEILA Ot Z86.73 PRSNL HX OF TIA (TIA), AND CEREB INFRC W 04/27/2019 TUCKER DO, KEILA David Ot E11.9 TYPE 2 DIABETES MELLITUS WITHOUT COMPLIC 04/27/2019 TUCKER DOKEILA Ot I10 ESSENTIAL (PRIMARY) HYPERTENSION 04/27/2019 TUCKER DOKEILA Ot R53.1 WEAKNESS 04/27/2019 TUCKER DOKEILA Ot Z86.73 PRSNL HX OF TIA (TIA), AND CEREB INFRC W 05/11/2019 TUCKER DOKEILA Ot E11.9 TYPE 2 DIABETES MELLITUS WITHOUT COMPLIC 05/11/2019 TUCKER DO, KEILA David Ot I10 ESSENTIAL (PRIMARY) HYPERTENSION 05/11/2019 TUCKER DO, KEILA David Ot R53.1 WEAKNESS 05/11/2019 TUCKER DO, KEILA David Ot Z86.73 PRSNL HX OF TIA (TIA), AND CEREB INFRC W 07/05/2019 TUCKER DO, KEILA David Ot E11.9 TYPE 2 DIABETES MELLITUS WITHOUT COMPLIC 07/05/2019 TUCKER DO, KEILA David Ot I10 ESSENTIAL (PRIMARY) HYPERTENSION 07/05/2019 TUCKER DOKEILA Ot R53.1 WEAKNESS 07/05/2019 TUCKER DOKEILA Ot Z86.73 PRSNL HX OF TIA (TIA), AND CEREB INFRC W 07/06/2019 KEILA TUCKER DO Ot E11.9 TYPE 2 DIABETES MELLITUS WITHOUT COMPLIC 07/06/2019 KEILA TUCKER DO Ot I10 ESSENTIAL (PRIMARY) HYPERTENSION 07/06/2019 KEILA TUCKER DO Ot R53.1 WEAKNESS 07/06/2019 KEILA TUCKER DO, Ot Z86.73 PRSNL HX OF TIA (TIA), AND CEREB INFRC W 09/06/2019 TUCKERKEILA EDWARDS DO Ot M16.0 BILATERAL PRIMARY OSTEOARTHRITIS OF HIP 09/06/2019 KEILA TUCKER DO Ot W19.XXXA UNSPECIFIED FALL, INITIAL ENCOUNTER 09/21/2019 KEILA TUCKER DO, Ot M16.0 BILATERAL PRIMARY OSTEOARTHRITIS OF HIP 09/21/2019 KEILA TUCKER DO, Ot W19.XXXA UNSPECIFIED FALL, INITIAL ENCOUNTER 11/01/2019 KEILA TUCKER DO, Ot E11.9 TYPE 2 DIABETES MELLITUS WITHOUT COMPLIC 11/01/2019 TUCKERKEILA EDWARDS DO Ot 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 11/01/2019 KEILA TUCKER DO Ot I12.0 HYP 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 11/01/2019 KEILA TUCKER DO Ot K21.9 GASTRO-ESOPHAGEAL REFLUX DISEASE WITHOUT 11/01/2019 TUCKER KEILA CRESPO Ot 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 11/01/2019 KEILA TUCKER DO, Ot Z86.73 PRSNL HX OF TIA (TIA), AND CEREB INFRC W 11/01/2019 KEILA TUCKER DO Ot Z99.2 DEPENDENCE ON RENAL DIALYSIS 12/06/2019 KEILA TUCKER DO Ot R07.9 CHEST PAIN, UNSPECIFIED 12/06/2019 KEILA TUCKER DO Ot R09.3 ABNORMAL SPUTUM 12/06/2019 KEILA TUCKER DO Ot M16.0 BILATERAL PRIMARY OSTEOARTHRITIS OF HIP 12/06/2019 KEILA TUCKER DO Ot W19.XXXA UNSPECIFIED FALL, INITIAL ENCOUNTER 12/06/2019 KEILA TUCKER DO Ot E11.9 TYPE 2 DIABETES MELLITUS WITHOUT COMPLIC 12/06/2019 KEILA TUCKER DO Ot 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 12/06/2019 TUCKER DO, KEILA David Ot I12.0 HYP 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 12/06/2019 TUCKER DO, KEILA David Ot K21.9 GASTRO-ESOPHAGEAL REFLUX DISEASE WITHOUT 12/06/2019 TUCKER DO, KEILA David Ot 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 12/06/2019 TUCKER DO, KEILA David Ot Z86.73 PRSNL HX OF TIA (TIA), AND CEREB INFRC W 12/06/2019 TUCKER DO, KEILA David Ot Z99.2 DEPENDENCE ON RENAL DIALYSIS 12/06/2019 TUCKER DO, KEILA David Ot E11.9 TYPE 2 DIABETES MELLITUS WITHOUT COMPLIC 12/06/2019 TUCKER DO, KEILA David Ot 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 12/06/2019 TUCKER DO, KEILA David Ot I12.0 HYP 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 12/06/2019 TUCKER DO, KEILA David Ot K21.9 GASTRO-ESOPHAGEAL REFLUX DISEASE WITHOUT 12/06/2019 TUCKER DO, KEILA David Ot 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 12/06/2019 TUCKER DO, KEILA David Ot Z86.73 PRSNL HX OF TIA (TIA), AND CEREB INFRC W 12/06/2019 TUCKER DO, KEILA David Ot Z99.2 DEPENDENCE ON RENAL DIALYSIS 12/13/2019 OXANA BOOKER MD Ot E11.621 TYPE 2 DIABETES MELLITUS WITH FOOT ULCER 12/13/2019 OXANA BOOKER MD Ot I73.89 OTHER SPECIFIED PERIPHERAL VASCULAR DISE 12/13/2019 OXANA BOOKER MD Ot L97.312 NON- PRS CHRONIC ULCER OF RIGHT ANKLE W F 12/13/2019 OXANA BOOKER MD Ot L97.528 NON- PRS CHRONIC ULCER OTH PRT LEFT FOOT 12/19/2019 TUCKER DO, KEILA David Ot E11.9 TYPE 2 DIABETES MELLITUS WITHOUT COMPLIC 12/19/2019 TUCKER DO, KEILA David Ot 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 12/19/2019 TUCKER DO, KEILA David Ot I12.0 HYP 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 12/19/2019 TUCKER DO, KEILA David Ot K21.9 GASTRO-ESOPHAGEAL REFLUX DISEASE WITHOUT 12/19/2019 TUCKER DO, KEILA David Ot 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 12/19/2019 KEILA TUCKER DO Ot Z86.73 PRSNL HX OF TIA (TIA), AND CEREB INFRC W 12/19/2019 KEILA TUCKER DO Ot Z99.2 DEPENDENCE ON RENAL DIALYSIS 12/20/2019 DARIO QUIROZ MD, Ot E11.52 TYPE 2 DIABETES W DIABETIC PERIPHERAL AN 12/20/2019 DARIO QUIROZ MD, Ot E11.621 TYPE 2 DIABETES MELLITUS WITH FOOT ULCER 12/20/2019 DARIO QUIROZ MD, Ot 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 12/20/2019 DARIO QUIROZ MD, Ot L97.312 NON-PRS CHRONIC ULCER OF RIGHT ANKLE W F 12/20/2019 DARIO QUIROZ MD, Ot L97.422 NON-PRS CHR ULCER OF LEFT HEEL AND MIDFO 12/20/2019 DARIO QUIROZ MD, Ot L97.522 NON-PRS CHRONIC ULCER OTH PRT LEFT FOOT 12/20/2019 DARIO QUIROZ MD, Ot E11.52 TYPE 2 DIABETES W DIABETIC PERIPHERAL AN 12/20/2019 DARIO QUIROZ MD, Ot E11.621 TYPE 2 DIABETES MELLITUS WITH FOOT ULCER 12/20/2019 DARIO QUIROZ MD Ot 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 12/20/2019 DARIO QUIROZ MD Ot L97.312 NON-PRS CHRONIC ULCER OF RIGHT ANKLE W F 12/20/2019 DARIO QUIROZ MD Ot L97.422 NON-PRS CHR ULCER OF LEFT HEEL AND MIDFO 12/20/2019 DARIO QUIROZ MD Ot L97.522 NON-PRS CHRONIC ULCER OTH PRT LEFT FOOT 12/24/2019 DARIO QUIROZ MD, Ot E11.52 TYPE 2 DIABETES W DIABETIC PERIPHERAL AN 12/24/2019 DARIO QUIROZ MD, Ot E11.621 TYPE 2 DIABETES MELLITUS WITH FOOT ULCER 12/24/2019 DARIO QUIROZ MD Ot 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 Results Test Result Range Capillary blood glucose measurement by g lucometer (mass/volume) - 01/09/18 12:48 Capillary blood glucose measurement by glucometer (mas s/volume) 286 mg/dL 70-110 Methicillin resistant Staphylococcus aur eus (MRSA) screening culture - 01/09/18 13:10 Methicillin resistant Staphylococcus aureus (MRSA) scr eening culture NEG NRG Gram stain microscopy - 01/09/18 15:46 Gram stain microscopy in chains NRG Bacteria identification in wound by cult ure - 01/09/18 15:46 Bacteria identification in wound by culture SEE CO MMEN NRG QUANTITY OF GROWTH . NRG Bacteria identification in isolate by an aerobe culture - 01/09/18 15:46 Bacteria identification in isolate by anaerobe culture NOANA NRG Capillary blood glucose measurement by g lucometer (mass/volume) - 01/09/18 16:25 Capillary blood glucose measurement by glucometer (mas s/volume) 248 mg/dL 70-110 Whole blood basic metabolic panel - 12/16 04/03 20:15 Serum or plasma sodium measurement (moles/volume) 133 mmol/L 135-145 Serum or plasma potassium measurement (moles/volume) 4.2 mmol/L 3.6-5.0 Serum or plasma chloride measurement (moles/volume) 101 mmol/L 98-107 Carbon dioxide 25 mmol/L 21-32 Serum or plasma anion gap determination (moles/volume) 7 mmol/L 5-14 Serum or plasma urea nitrogen measurement (mass/volume ) 22 mg/dL 7-18 Serum or plasma creatinine measurement (mass/volume) 1.23 mg/dL 0.60-1.30 Serum or plasma urea nitrogen/creatinine mass ratio 18 NRG Serum or plasma creatinine measurement w ith calculation of estimated glomerular filtration rate > NRG Serum or plasma glucose measurement (mass/volume) 298 mg/dL 70-105 Serum or plasma calcium measurement (mass/volume) 9.0 mg/dL 8.5-10.1 Capillary blood glucose measurement by g lucometer (mass/volume) - 01/09/18 20:24 Capillary blood glucose measurement by glucometer (mas s/volume) 296 mg/dL 70-110 Capillary blood glucose measurement by g lucometer (mass/volume) - 01/10/18 05:15 Capillary blood glucose measurement by glucometer (mas s/volume) 190 mg/dL 70-110 Capillary blood glucose measurement by g lucometer (mass/volume) - 01/10/18 11:16 Capillary blood glucose measurement by glucometer (mas s/volume) 267 mg/dL 70-110 Capillary blood glucose measurement by g lucometer (mass/volume) - 01/10/18 16:23 Capillary blood glucose measurement by glucometer (mas s/volume) 295 mg/dL 70-110 Capillary blood glucose measurement by g lucometer (mass/volume) - 06/22/18 11:34 Capillary blood glucose measurement by glucometer (mas s/volume) 91 mg/dL 70-110 Capillary blood glucose measurement by g lucometer (mass/volume) - 06/22/18 18:49 Capillary blood glucose measurement by glucometer (mas s/volume) 153 mg/dL 70-110 Capillary blood glucose measurement by g lucometer (mass/volume) - 06/23/18 00:34 Capillary blood glucose measurement by glucometer (mas s/volume) 136 mg/dL 70-110 Capillary blood glucose measurement by g lucometer (mass/volume) - 06/23/18 06:29 Capillary blood glucose measurement by glucometer (mas s/volume) 101 mg/dL 70-110 Arterial blood gas measurement - 8 08:50 Blood pCO2 43 mm[Hg] 35-45 Blood pO2 79 mm[Hg] 79-93 Arterial blood bicarbonate measurement (moles/volume) 28 mmol/L 23-27 Arterial blood base excess by calculation 3.1 mmol /L -2.5-2.5 Arterial blood oxygen saturation measurement 98 % 94-100 * Inhaled oxygen flow rate ROOM AIR NRG Arterial blood pH measurement with patient temperature correction 7.42 7.37-7.43 Arterial blood carbon dioxide, total measurement (mole s/volume) 29.1 mmol/L 21.0-31.0 Body site RIGHT RADIAL NRG Assessment of wrist artery patency prior to arterial p uncture YES-POS NRG Setting of ventilation mode NO NR G Measurement of body temperature 95.5 NRG Complete blood count (CBC) with automate d white blood cell (WBC) differential - 06/23/18 09:15 Blood leukocytes automated count (number/volume) 5.8 10*3/uL 4.3-11.0 Blood erythrocytes automated count (number/volume) 3.08 10*6/uL 4.35-5.85 Venous blood hemoglobin measurement (mass/volume) 9.8 g/dL 13.3-17.7 Blood hematocrit (volume fraction) 29 % 40-54 Automated erythrocyte mean corpuscular volume 93 [ foz_us] 80-99 Automated erythrocyte mean corpuscular h emoglobin (mass per erythrocyte) 32 pg 25-34 Automated erythrocyte mean corpuscular h emoglobin concentration measurement (mass/volume) 34 g/dL 32-36 Automated erythrocyte distribution width ratio 15. 9 % 10.0- 14.5 Automated blood platelet count (count/volume) 88 1 0*3/uL 130-400 Automated blood platelet mean volume measurement 10.3 [foz_us] 7.4-10.4 Automated blood neutrophils/100 leukocytes 77 % 42-75 Automated blood lymphocytes/100 leukocytes 12 % 12-44 Blood monocytes/100 leukocytes 9 % 0-12 Automated blood eosinophils/100 leukocytes 2 % 0-10 Automated blood basophils/100 leukocytes 0 % 0-10 Blood neutrophils automated count (number/volume) 4.5 10*3 1.8-7.8 Blood lymphocytes automated count (number/volume) 0.7 10*3 1.0-4.0 Blood monocytes automated count (number/volume) 0. 5 10*3 0.0-1.0 Automated eosinophil count 0.1 10*3/uL 0 .0-0.3 Automated blood basophil count (count/volume) 0.0 10*3/uL 0.0-0.1 Serum or plasma lithium measurement (mol es/volume) - 06/23/18 09:15 BNP level 323.8 pg/mL <100.0 Capillary blood glucose measurement by g lucometer (mass/volume) - 06/23/18 11:25 Capillary blood glucose measurement by glucometer (mas s/volume) 273 mg/dL 70-110 Capillary blood glucose measurement by g lucometer (mass/volume) - 06/23/18 18:03 Capillary blood glucose measurement by glucometer (mas s/volume) 144 mg/dL 70-110 Capillary blood glucose measurement by g lucometer (mass/volume) - 06/23/18 23:54 Capillary blood glucose measurement by glucometer (mas s/volume) 165 mg/dL 70-110 Capillary blood glucose measurement by g lucometer (mass/volume) - 06/24/18 06:06 Capillary blood glucose measurement by glucometer (mas s/volume) 103 mg/dL 70-110 Whole blood basic metabolic panel - 06/03 06:10 Serum or plasma sodium measurement (moles/volume) 135 mmol/L 135-145 Serum or plasma potassium measurement (moles/volume) 3.6 mmol/L 3.6-5.0 Serum or plasma chloride measurement (moles/volume) 97 mmol/L 98-107 Carbon dioxide 25 mmol/L 21-32 Serum or plasma anion gap determination (moles/volume) 13 mmol/L 5-14 Serum or plasma urea nitrogen measurement (mass/volume ) 91 mg/dL -18 Serum or plasma creatinine measurement (mass/volume) 4.16 mg/dL 0.60-1.30 Serum or plasma urea nitrogen/creatinine mass ratio 22 NRG Serum or plasma creatinine measurement w ith calculation of estimated glomerular filtration rate 15 NRG Serum or plasma glucose measurement (mass/volume) 103 mg/dL 70-105 Serum or plasma calcium measurement (mass/volume) 11.5 mg/dL 8.5-10.1 Capillary blood glucose measurement by g lucometer (mass/volume) - 06/24/18 18:31 Capillary blood glucose measurement by glucometer (mas s/volume) 68 mg/dL 70-110 Capillary blood glucose measurement by g lucometer (mass/volume) - 06/24/18 23:43 Capillary blood glucose measurement by glucometer (mas s/volume) 78 mg/dL 70-110 Capillary blood glucose measurement by g lucometer (mass/volume) - 06/25/18 05:45 Capillary blood glucose measurement by glucometer (mas s/volume) 104 mg/dL 70-110 Whole blood basic metabolic panel - 07/04 06:12 Serum or plasma sodium measurement (moles/volume) 137 mmol/L 135-145 Serum or plasma potassium measurement (moles/volume) 3.2 mmol/L 3.6-5.0 Serum or plasma chloride measurement (moles/volume) 96 mmol/L 98-107 Carbon dioxide 29 mmol/L -32 Serum or plasma anion gap determination (moles/volume) 12 mmol/L 5-14 Serum or plasma urea nitrogen measurement (mass/volume ) 41 mg/dL -18 Serum or plasma creatinine measurement (mass/volume) 2.76 mg/dL 0.60-1.30 Serum or plasma urea nitrogen/creatinine mass ratio 15 NRG Serum or plasma creatinine measurement w ith calculation of estimated glomerular filtration rate 24 NRG Serum or plasma glucose measurement (mass/volume) 105 mg/dL 70-105 Serum or plasma calcium measurement (mass/volume) 10.1 mg/dL 8.5-10.1 Capillary blood glucose measurement by g lucometer (mass/volume) - 06/25/18 12:03 Capillary blood glucose measurement by glucometer (mas s/volume) 180 mg/dL 70-110 Capillary blood glucose measurement by g lucometer (mass/volume) - 06/25/18 18:04 Capillary blood glucose measurement by glucometer (mas s/volume) 118 mg/dL 70-110 Capillary blood glucose measurement by g lucometer (mass/volume) - 06/25/18 23:47 Capillary blood glucose measurement by glucometer (mas s/volume) 69 mg/dL 70-110 Capillary blood glucose measurement by g lucometer (mass/volume) - 06/26/18 01:15 Capillary blood glucose measurement by glucometer (mas s/volume) 77 mg/dL 70-110 Whole blood basic metabolic panel - 06/17 04:25 Serum or plasma sodium measurement (moles/volume) 136 mmol/L 135-145 Serum or plasma potassium measurement (moles/volume) 3.6 mmol/L 3.6-5.0 Serum or plasma chloride measurement (moles/volume) 96 mmol/L 98-107 Carbon dioxide 30 mmol/L 21-32 Serum or plasma anion gap determination (moles/volume) 10 mmol/L 5-14 Serum or plasma urea nitrogen measurement (mass/volume ) 53 mg/dL 7-18 Serum or plasma creatinine measurement (mass/volume) 3.41 mg/dL 0.60-1.30 Serum or plasma urea nitrogen/creatinine mass ratio 16 NRG Serum or plasma creatinine measurement w ith calculation of estimated glomerular filtration rate 19 NRG Serum or plasma glucose measurement (mass/volume) 94 mg/dL 70-105 Serum or plasma calcium measurement (mass/volume) 10.3 mg/dL 8.5-10.1 Capillary blood glucose measurement by g lucometer (mass/volume) - 06/26/18 11:35 Capillary blood glucose measurement by glucometer (mas s/volume) 164 mg/dL 70-110 Capillary blood glucose measurement by g lucometer (mass/volume) - 06/26/18 18:08 Capillary blood glucose measurement by glucometer (mas s/volume) 221 mg/dL 70-110 Capillary blood glucose measurement by g lucometer (mass/volume) - 06/27/18 00:04 Capillary blood glucose measurement by glucometer (mas s/volume) 157 mg/dL 70-110 Capillary blood glucose measurement by g lucometer (mass/volume) - 06/27/18 05:39 Capillary blood glucose measurement by glucometer (mas s/volume) 169 mg/dL 70-110 Whole blood basic metabolic panel - 06/17 11/03 05:40 Serum or plasma sodium measurement (moles/volume) 134 mmol/L 135-145 Serum or plasma potassium measurement (moles/volume) 3.8 mmol/L 3.6-5.0 Serum or plasma chloride measurement (moles/volume) 94 mmol/L 98-107 Carbon dioxide 27 mmol/L 21-32 Serum or plasma anion gap determination (moles/volume) 13 mmol/L 5-14 Serum or plasma urea nitrogen measurement (mass/volume ) 69 mg/dL 7-18 Serum or plasma creatinine measurement (mass/volume) 3.79 mg/dL 0.60-1.30 Serum or plasma urea nitrogen/creatinine mass ratio 18 NRG Serum or plasma creatinine measurement w ith calculation of estimated glomerular filtration rate 17 NRG Serum or plasma glucose measurement (mass/volume) 165 mg/dL 70-105 Serum or plasma calcium measurement (mass/volume) 10.8 mg/dL 8.5-10.1 Capillary blood glucose measurement by g lucometer (mass/volume) - 06/27/18 15:34 Capillary blood glucose measurement by glucometer (mas s/volume) 89 mg/dL 70-110 Capillary blood glucose measurement by g lucometer (mass/volume) - 06/27/18 17:56 Capillary blood glucose measurement by glucometer (mas s/volume) 111 mg/dL 70-110 Capillary blood glucose measurement by g lucometer (mass/volume) - 06/27/18 23:42 Capillary blood glucose measurement by glucometer (mas s/volume) 99 mg/dL 70-110 Whole blood basic metabolic panel - 06/17 12/04 04:10 Serum or plasma sodium measurement (moles/volume) 136 mmol/L 135-145 Serum or plasma potassium measurement (moles/volume) 3.1 mmol/L 3.6-5.0 Serum or plasma chloride measurement (moles/volume) 94 mmol/L 98-107 Carbon dioxide 33 mmol/L 21-32 Serum or plasma anion gap determination (moles/volume) 9 mmol/L 5-14 Serum or plasma urea nitrogen measurement (mass/volume ) 32 mg/dL 7-18 Serum or plasma creatinine measurement (mass/volume) 2.43 mg/dL 0.60-1.30 Serum or plasma urea nitrogen/creatinine mass ratio 13 NRG Serum or plasma creatinine measurement w ith calculation of estimated glomerular filtration rate 28 NRG Serum or plasma glucose measurement (mass/volume) 96 mg/dL 70-105 Serum or plasma calcium measurement (mass/volume) 9.8 mg/dL 8.5-10.1 Capillary blood glucose measurement by g lucometer (mass/volume) - 06/28/18 11:38 Capillary blood glucose measurement by glucometer (mas s/volume) 205 mg/dL 70-110 Capillary blood glucose measurement by g lucometer (mass/volume) - 06/28/18 17:41 Capillary blood glucose measurement by glucometer (mas s/volume) 49 mg/dL 70-110 Capillary blood glucose measurement by g lucometer (mass/volume) - 06/28/18 18:07 Capillary blood glucose measurement by glucometer (mas s/volume) 58 mg/dL 70-110 Capillary blood glucose measurement by g lucometer (mass/volume) - 06/28/18 18:36 Capillary blood glucose measurement by glucometer (mas s/volume) 79 mg/dL 70-110 Capillary blood glucose measurement by g lucometer (mass/volume) - 06/29/18 00:53 Capillary blood glucose measurement by glucometer (mas s/volume) 111 mg/dL 70-110 Whole blood basic metabolic panel - 06/17 01/01 06:20 Serum or plasma sodium measurement (moles/volume) 134 mmol/L 135-145 Serum or plasma potassium measurement (moles/volume) 3.9 mmol/L 3.6-5.0 Serum or plasma chloride measurement (moles/volume) 94 mmol/L 98-107 Carbon dioxide 28 mmol/L 21-32 Serum or plasma anion gap determination (moles/volume) 12 mmol/L 5-14 Serum or plasma urea nitrogen measurement (mass/volume ) 44 mg/dL 7-18 Serum or plasma creatinine measurement (mass/volume) 3.20 mg/dL 0.60-1.30 Serum or plasma urea nitrogen/creatinine mass ratio 14 NRG Serum or plasma creatinine measurement w ith calculation of estimated glomerular filtration rate 20 NRG Serum or plasma glucose measurement (mass/volume) 146 mg/dL 70-105 Serum or plasma calcium measurement (mass/volume) 10.1 mg/dL 8.5-10.1 Capillary blood glucose measurement by g lucometer (mass/volume) - 06/29/18 06:22 Capillary blood glucose measurement by glucometer (mas s/volume) 117 mg/dL 70-110 Capillary blood glucose measurement by g lucometer (mass/volume) - 06/29/18 18:03 Capillary blood glucose measurement by glucometer (mas s/volume) 164 mg/dL 70-110 Capillary blood glucose measurement by g lucometer (mass/volume) - 06/29/18 23:02 Capillary blood glucose measurement by glucometer (mas s/volume) 123 mg/dL 70-110 Whole blood basic metabolic panel - 06/17 02/01 05:45 Serum or plasma sodium measurement (moles/volume) 134 mmol/L 135-145 Serum or plasma potassium measurement (moles/volume) 3.4 mmol/L 3.6-5.0 Serum or plasma chloride measurement (moles/volume) 93 mmol/L 98-107 Carbon dioxide 33 mmol/L 21-32 Serum or plasma anion gap determination (moles/volume) 8 mmol/L 5-14 Serum or plasma urea nitrogen measurement (mass/volume ) 25 mg/dL 7-18 Serum or plasma creatinine measurement (mass/volume) 2.47 mg/dL 0.60-1.30 Serum or plasma urea nitrogen/creatinine mass ratio 10 NRG Serum or plasma creatinine measurement w ith calculation of estimated glomerular filtration rate 27 NRG Serum or plasma glucose measurement (mass/volume) 113 mg/dL 70-105 Serum or plasma calcium measurement (mass/volume) 9.6 mg/dL 8.5-10.1 Capillary blood glucose measurement by g lucometer (mass/volume) - 06/30/18 11:49 Capillary blood glucose measurement by glucometer (mas s/volume) 218 mg/dL 70-110 Capillary blood glucose measurement by g lucometer (mass/volume) - 06/30/18 17:52 Capillary blood glucose measurement by glucometer (mas s/volume) 60 mg/dL 70-110 Capillary blood glucose measurement by g lucometer (mass/volume) - 06/30/18 18:52 Capillary blood glucose measurement by glucometer (mas s/volume) 74 mg/dL 70-110 Capillary blood glucose measurement by g lucometer (mass/volume) - 06/30/18 20:56 Capillary blood glucose measurement by glucometer (mas s/volume) 83 mg/dL 70-110 Capillary blood glucose measurement by g lucometer (mass/volume) - 06/30/18 23:34 Capillary blood glucose measurement by glucometer (mas s/volume) 90 mg/dL 70-110 Capillary blood glucose measurement by g lucometer (mass/volume) - 07/01/18 05:18 Capillary blood glucose measurement by glucometer (mas s/volume) 148 mg/dL 70-110 Whole blood basic metabolic panel - 06/17 03/03 05:20 Serum or plasma sodium measurement (moles/volume) 134 mmol/L 135-145 Serum or plasma potassium measurement (moles/volume) 3.7 mmol/L 3.6-5.0 Serum or plasma chloride measurement (moles/volume) 94 mmol/L 98-107 Carbon dioxide 30 mmol/L 21-32 Serum or plasma anion gap determination (moles/volume) 10 mmol/L 5-14 Serum or plasma urea nitrogen measurement (mass/volume ) 29 mg/dL 7-18 Serum or plasma creatinine measurement (mass/volume) 3.19 mg/dL 0.60-1.30 Serum or plasma urea nitrogen/creatinine mass ratio 9 NRG Serum or plasma creatinine measurement w ith calculation of estimated glomerular filtration rate 20 NRG Serum or plasma glucose measurement (mass/volume) 136 mg/dL 70-105 Serum or plasma calcium measurement (mass/volume) 10.3 mg/dL 8.5-10.1 Capillary blood glucose measurement by g lucometer (mass/volume) - 07/01/18 13:22 Capillary blood glucose measurement by glucometer (mas s/volume) 150 mg/dL 70-110 Capillary blood glucose measurement by g lucometer (mass/volume) - 07/01/18 17:57 Capillary blood glucose measurement by glucometer (mas s/volume) 142 mg/dL 70-110 Capillary blood glucose measurement by g lucometer (mass/volume) - 07/01/18 23:05 Capillary blood glucose measurement by glucometer (mas s/volume) 99 mg/dL 70-110 Capillary blood glucose measurement by g lucometer (mass/volume) - 07/02/18 04:58 Capillary blood glucose measurement by glucometer (mas s/volume) 130 mg/dL 70-110 Whole blood basic metabolic panel - 06/17 04/03 05:50 Serum or plasma sodium measurement (moles/volume) 134 mmol/L 135-145 Serum or plasma potassium measurement (moles/volume) 3.7 mmol/L 3.6-5.0 Serum or plasma chloride measurement (moles/volume) 93 mmol/L 98-107 Carbon dioxide 31 mmol/L 21-32 Serum or plasma anion gap determination (moles/volume) 10 mmol/L 5-14 Serum or plasma urea nitrogen measurement (mass/volume ) 16 mg/dL 7-18 Serum or plasma creatinine measurement (mass/volume) 2.50 mg/dL 0.60-1.30 Serum or plasma urea nitrogen/creatinine mass ratio 6 NRG Serum or plasma creatinine measurement w ith calculation of estimated glomerular filtration rate 27 NRG Serum or plasma glucose measurement (mass/volume) 121 mg/dL 70-105 Serum or plasma calcium measurement (mass/volume) 9.8 mg/dL 8.5-10.1 Capillary blood glucose measurement by g lucometer (mass/volume) - 07/02/18 12:22 Capillary blood glucose measurement by glucometer (mas s/volume) 270 mg/dL 70-110 Capillary blood glucose measurement by g lucometer (mass/volume) - 07/02/18 17:18 Capillary blood glucose measurement by glucometer (mas s/volume) 110 mg/dL 70-110 Capillary blood glucose measurement by g lucometer (mass/volume) - 07/02/18 23:22 Capillary blood glucose measurement by glucometer (mas s/volume) 128 mg/dL 70-110 Whole blood basic metabolic panel - 06/17 05/03 05:45 Serum or plasma sodium measurement (moles/volume) 135 mmol/L 135-145 Serum or plasma potassium measurement (moles/volume) 3.4 mmol/L 3.6-5.0 Serum or plasma chloride measurement (moles/volume) 96 mmol/L 98-107 Carbon dioxide 31 mmol/L 21-32 Serum or plasma anion gap determination (moles/volume) 8 mmol/L 5-14 Serum or plasma urea nitrogen measurement (mass/volume ) 21 mg/dL 7-18 Serum or plasma creatinine measurement (mass/volume) 2.96 mg/dL 0.60-1.30 Serum or plasma urea nitrogen/creatinine mass ratio 7 NRG Serum or plasma creatinine measurement w ith calculation of estimated glomerular filtration rate 22 NRG Serum or plasma glucose measurement (mass/volume) 98 mg/dL 70-105 Serum or plasma calcium measurement (mass/volume) 10.1 mg/dL 8.5-10.1 Capillary blood glucose measurement by g lucometer (mass/volume) - 07/03/18 12:18 Capillary blood glucose measurement by glucometer (mas s/volume) 201 mg/dL 70-110 Capillary blood glucose measurement by g lucometer (mass/volume) - 07/03/18 17:53 Capillary blood glucose measurement by glucometer (mas s/volume) 96 mg/dL 70-110 Capillary blood glucose measurement by g lucometer (mass/volume) - 07/03/18 23:55 Capillary blood glucose measurement by glucometer (mas s/volume) 95 mg/dL 70-110 Whole blood basic metabolic panel - 06/17 06/03 04:25 Serum or plasma sodium measurement (moles/volume) 136 mmol/L 135-145 Serum or plasma potassium measurement (moles/volume) 4.4 mmol/L 3.6-5.0 Serum or plasma chloride measurement (moles/volume) 97 mmol/L 98-107 Carbon dioxide 31 mmol/L 21-32 Serum or plasma anion gap determination (moles/volume) 8 mmol/L 5-14 Serum or plasma urea nitrogen measurement (mass/volume ) 31 mg/dL 7-18 Serum or plasma creatinine measurement (mass/volume) 3.26 mg/dL 0.60-1.30 Serum or plasma urea nitrogen/creatinine mass ratio 10 NRG Serum or plasma creatinine measurement w ith calculation of estimated glomerular filtration rate 20 NRG Serum or plasma glucose measurement (mass/volume) 102 mg/dL 70-105 Serum or plasma calcium measurement (mass/volume) 10.0 mg/dL 8.5-10.1 Capillary blood glucose measurement by g lucometer (mass/volume) - 07/04/18 11:57 Capillary blood glucose measurement by glucometer (mas s/volume) 148 mg/dL 70-110 Capillary blood glucose measurement by g lucometer (mass/volume) - 07/04/18 18:36 Capillary blood glucose measurement by glucometer (mas s/volume) 102 mg/dL 70-110 Capillary blood glucose measurement by g lucometer (mass/volume) - 07/04/18 23:47 Capillary blood glucose measurement by glucometer (mas s/volume) 129 mg/dL 70-110 Capillary blood glucose measurement by g lucometer (mass/volume) - 07/05/18 05:27 Capillary blood glucose measurement by glucometer (mas s/volume) 118 mg/dL 70-110 Capillary blood glucose measurement by g lucometer (mass/volume) - 07/05/18 12:13 Capillary blood glucose measurement by glucometer (mas s/volume) 206 mg/dL 70-110 Capillary blood glucose measurement by g lucometer (mass/volume) - 07/05/18 17:56 Capillary blood glucose measurement by glucometer (mas s/volume) 100 mg/dL 70-110 Capillary blood glucose measurement by g lucometer (mass/volume) - 07/06/18 00:44 Capillary blood glucose measurement by glucometer (mas s/volume) 100 mg/dL 70-110 Capillary blood glucose measurement by g lucometer (mass/volume) - 07/06/18 05:22 Capillary blood glucose measurement by glucometer (mas s/volume) 129 mg/dL 70-110 Capillary blood glucose measurement by g lucometer (mass/volume) - 07/06/18 12:14 Capillary blood glucose measurement by glucometer (mas s/volume) 128 mg/dL 70-110 Capillary blood glucose measurement by g lucometer (mass/volume) - 07/06/18 18:02 Capillary blood glucose measurement by glucometer (mas s/volume) 103 mg/dL 70-110 Capillary blood glucose measurement by g lucometer (mass/volume) - 07/06/18 23:45 Capillary blood glucose measurement by glucometer (mas s/volume) 121 mg/dL 70-110 Capillary blood glucose measurement by g lucometer (mass/volume) - 07/07/18 05:10 Capillary blood glucose measurement by glucometer (mas s/volume) 140 mg/dL 70-110 Capillary blood glucose measurement by g lucometer (mass/volume) - 07/07/18 12:25 Capillary blood glucose measurement by glucometer (mas s/volume) 214 mg/dL 70-110 Capillary blood glucose measurement by g lucometer (mass/volume) - 07/07/18 17:46 Capillary blood glucose measurement by glucometer (mas s/volume) 106 mg/dL 70-110 Capillary blood glucose measurement by g lucometer (mass/volume) - 07/07/18 23:49 Capillary blood glucose measurement by glucometer (mas s/volume) 101 mg/dL 70-110 Capillary blood glucose measurement by g lucometer (mass/volume) - 07/08/18 06:07 Capillary blood glucose measurement by glucometer (mas s/volume) 141 mg/dL 70-110 Capillary blood glucose measurement by g lucometer (mass/volume) - 07/08/18 13:27 Capillary blood glucose measurement by glucometer (mas s/volume) 124 mg/dL 70-110 Capillary blood glucose measurement by g lucometer (mass/volume) - 07/08/18 18:37 Capillary blood glucose measurement by glucometer (mas s/volume) 122 mg/dL 70-110 Capillary blood glucose measurement by g lucometer (mass/volume) - 07/09/18 00:14 Capillary blood glucose measurement by glucometer (mas s/volume) 104 mg/dL 70-110 Capillary blood glucose measurement by g lucometer (mass/volume) - 07/09/18 05:21 Capillary blood glucose measurement by glucometer (mas s/volume) 119 mg/dL 70-110 Capillary blood glucose measurement by g lucometer (mass/volume) - 07/09/18 11:55 Capillary blood glucose measurement by glucometer (mas s/volume) 214 mg/dL 70-110 Capillary blood glucose measurement by g lucometer (mass/volume) - 07/09/18 18:09 Capillary blood glucose measurement by glucometer (mas s/volume) 132 mg/dL 70-110 Capillary blood glucose measurement by g lucometer (mass/volume) - 07/10/18 00:19 Capillary blood glucose measurement by glucometer (mas s/volume) 123 mg/dL 70-110 Capillary blood glucose measurement by g lucometer (mass/volume) - 07/10/18 05:07 Capillary blood glucose measurement by glucometer (mas s/volume) 128 mg/dL 70-110 Capillary blood glucose measurement by g lucometer (mass/volume) - 07/10/18 11:09 Capillary blood glucose measurement by glucometer (mas s/volume) 160 mg/dL 70-110 Capillary blood glucose measurement by g lucometer (mass/volume) - 07/10/18 19:02 Capillary blood glucose measurement by glucometer (mas s/volume) 118 mg/dL 70-110 Capillary blood glucose measurement by g lucometer (mass/volume) - 07/11/18 00:02 Capillary blood glucose measurement by glucometer (mas s/volume) 83 mg/dL 70-110 Capillary blood glucose measurement by g lucometer (mass/volume) - 07/11/18 06:24 Capillary blood glucose measurement by glucometer (mas s/volume) 128 mg/dL 70-110 Capillary blood glucose measurement by g lucometer (mass/volume) - 07/11/18 14:12 Capillary blood glucose measurement by glucometer (mas s/volume) 145 mg/dL 70-110 Capillary blood glucose measurement by g lucometer (mass/volume) - 07/11/18 17:50 Capillary blood glucose measurement by glucometer (mas s/volume) 127 mg/dL 70-110 Capillary blood glucose measurement by g lucometer (mass/volume) - 07/12/18 00:05 Capillary blood glucose measurement by glucometer (mas s/volume) 114 mg/dL 70-110 Capillary blood glucose measurement by g lucometer (mass/volume) - 07/12/18 05:46 Capillary blood glucose measurement by glucometer (mas s/volume) 124 mg/dL 70-110 Capillary blood glucose measurement by g lucometer (mass/volume) - 07/12/18 11:46 Capillary blood glucose measurement by glucometer (mas s/volume) 117 mg/dL 70-110 Capillary blood glucose measurement by g lucometer (mass/volume) - 07/12/18 17:47 Capillary blood glucose measurement by glucometer (mas s/volume) 107 mg/dL 70-110 Capillary blood glucose measurement by g lucometer (mass/volume) - 07/13/18 00:12 Capillary blood glucose measurement by glucometer (mas s/volume) 101 mg/dL 70-110 Capillary blood glucose measurement by g lucometer (mass/volume) - 07/13/18 06:00 Capillary blood glucose measurement by glucometer (mas s/volume) 134 mg/dL 70-110 Capillary blood glucose measurement by g lucometer (mass/volume) - 07/13/18 14:48 Capillary blood glucose measurement by glucometer (mas s/volume) 95 mg/dL 70-110 Capillary blood glucose measurement by g lucometer (mass/volume) - 07/14/18 00:40 Capillary blood glucose measurement by glucometer (mas s/volume) 93 mg/dL 70-110 Capillary blood glucose measurement by g lucometer (mass/volume) - 07/14/18 05:40 Capillary blood glucose measurement by glucometer (mas s/volume) 110 mg/dL 70-110 Capillary blood glucose measurement by g lucometer (mass/volume) - 07/14/18 10:58 Capillary blood glucose measurement by glucometer (mas s/volume) 154 mg/dL 70-110 Capillary blood glucose measurement by g lucometer (mass/volume) - 07/14/18 17:45 Capillary blood glucose measurement by glucometer (mas s/volume) 111 mg/dL 70-110 Capillary blood glucose measurement by g lucometer (mass/volume) - 07/14/18 23:54 Capillary blood glucose measurement by glucometer (mas s/volume) 81 mg/dL 70-110 Capillary blood glucose measurement by g lucometer (mass/volume) - 07/15/18 05:15 Capillary blood glucose measurement by glucometer (mas s/volume) 165 mg/dL 70-110 Capillary blood glucose measurement by g lucometer (mass/volume) - 07/15/18 15:51 Capillary blood glucose measurement by glucometer (mas s/volume) 106 mg/dL 70-110 Capillary blood glucose measurement by g lucometer (mass/volume) - 07/15/18 18:18 Capillary blood glucose measurement by glucometer (mas s/volume) 113 mg/dL 70-110 Capillary blood glucose measurement by g lucometer (mass/volume) - 07/15/18 23:57 Capillary blood glucose measurement by glucometer (mas s/volume) 86 mg/dL 70-110 Capillary blood glucose measurement by g lucometer (mass/volume) - 07/16/18 05:08 Capillary blood glucose measurement by glucometer (mas s/volume) 139 mg/dL 70-110 Capillary blood glucose measurement by g lucometer (mass/volume) - 07/16/18 12:15 Capillary blood glucose measurement by glucometer (mas s/volume) 155 mg/dL 70-110 Capillary blood glucose measurement by g lucometer (mass/volume) - 07/16/18 18:21 Capillary blood glucose measurement by glucometer (mas s/volume) 128 mg/dL 70-110 Capillary blood glucose measurement by g lucometer (mass/volume) - 07/16/18 23:46 Capillary blood glucose measurement by glucometer (mas s/volume) 95 mg/dL 70-110 Capillary blood glucose measurement by g lucometer (mass/volume) - 07/17/18 05:14 Capillary blood glucose measurement by glucometer (mas s/volume) 120 mg/dL 70-110 Capillary blood glucose measurement by g lucometer (mass/volume) - 07/17/18 11:52 Capillary blood glucose measurement by glucometer (mas s/volume) 142 mg/dL 70-110 Capillary blood glucose measurement by g lucometer (mass/volume) - 07/17/18 17:28 Capillary blood glucose measurement by glucometer (mas s/volume) 103 mg/dL 70-110 Capillary blood glucose measurement by g lucometer (mass/volume) - 07/18/18 00:17 Capillary blood glucose measurement by glucometer (mas s/volume) 101 mg/dL 70-110 Capillary blood glucose measurement by g lucometer (mass/volume) - 07/18/18 06:37 Capillary blood glucose measurement by glucometer (mas s/volume) 128 mg/dL 70-110 Capillary blood glucose measurement by g lucometer (mass/volume) - 07/18/18 14:47 Capillary blood glucose measurement by glucometer (mas s/volume) 94 mg/dL 70-110 Capillary blood glucose measurement by g lucometer (mass/volume) - 07/18/18 18:15 Capillary blood glucose measurement by glucometer (mas s/volume) 111 mg/dL 70-110 Capillary blood glucose measurement by g lucometer (mass/volume) - 07/19/18 06:05 Capillary blood glucose measurement by glucometer (mas s/volume) 134 mg/dL 70-110 Capillary blood glucose measurement by g lucometer (mass/volume) - 07/19/18 18:02 Capillary blood glucose measurement by glucometer (mas s/volume) 129 mg/dL 70-110 Capillary blood glucose measurement by g lucometer (mass/volume) - 07/20/18 05:06 Capillary blood glucose measurement by glucometer (mas s/volume) 172 mg/dL 70-110 Capillary blood glucose measurement by g lucometer (mass/volume) - 07/20/18 14:45 Capillary blood glucose measurement by glucometer (mas s/volume) 118 mg/dL 70-110 Capillary blood glucose measurement by g lucometer (mass/volume) - 07/20/18 18:11 Capillary blood glucose measurement by glucometer (mas s/volume) 145 mg/dL 70-110 Capillary blood glucose measurement by g lucometer (mass/volume) - 07/21/18 04:22 Capillary blood glucose measurement by glucometer (mas s/volume) 128 mg/dL 70-110 Capillary blood glucose measurement by g lucometer (mass/volume) - 07/21/18 15:55 Capillary blood glucose measurement by glucometer (mas s/volume) 135 mg/dL 70-110 Capillary blood glucose measurement by g lucometer (mass/volume) - 07/22/18 05:22 Capillary blood glucose measurement by glucometer (mas s/volume) 133 mg/dL 70-110 Capillary blood glucose measurement by g lucometer (mass/volume) - 07/22/18 21:27 Capillary blood glucose measurement by glucometer (mas s/volume) 113 mg/dL 70-110 Capillary blood glucose measurement by g lucometer (mass/volume) - 07/22/18 21:36 Capillary blood glucose measurement by glucometer (mas s/volume) 180 mg/dL 70-110 Capillary blood glucose measurement by g lucometer (mass/volume) - 07/23/18 06:27 Capillary blood glucose measurement by glucometer (mas s/volume) 163 mg/dL 70-110 Capillary blood glucose measurement by g lucometer (mass/volume) - 07/23/18 15:59 Capillary blood glucose measurement by glucometer (mas s/volume) 140 mg/dL 70-110 Capillary blood glucose measurement by g lucometer (mass/volume) - 07/24/18 05:55 Capillary blood glucose measurement by glucometer (mas s/volume) 165 mg/dL 70-110 Capillary blood glucose measurement by g lucometer (mass/volume) - 07/24/18 16:44 Capillary blood glucose measurement by glucometer (mas s/volume) 111 mg/dL 70-110 Capillary blood glucose measurement by g lucometer (mass/volume) - 07/25/18 05:31 Capillary blood glucose measurement by glucometer (mas s/volume) 154 mg/dL 70-110 Sputum Gram stain - 07/29/18 16:58 Sputum Gram stain Mixed Bacterial Magalys NRG Bacterial sputum culture - 07/29/18 16:5 8 QUANTITY OF GROWTH . [facility] Bacterial sputum culture SEE [facility] Capillary blood glucose measurement by g lucometer (mass/volume) - 08/09/18 03:04 Capillary blood glucose measurement by glucometer (mas s/volume) 289 mg/dL 70-110 Complete blood count (CBC) with automate d white blood cell (WBC) differential - 08/09/18 03:14 Blood leukocytes automated count (number/volume) 9.1 10*3/uL 4.3-11.0 Blood erythrocytes automated count (number/volume) 2.95 10*6/uL 4.35-5.85 Venous blood hemoglobin measurement (mass/volume) 10.1 g/dL 13.3-17.7 Blood hematocrit (volume fraction) 28 % 40-54 Automated erythrocyte mean corpuscular volume 96 [ foz_us] 80-99 Automated erythrocyte mean corpuscular h emoglobin (mass per erythrocyte) 34 pg 25-34 Automated erythrocyte mean corpuscular h emoglobin concentration measurement (mass/volume) 36 g/dL 32-36 Automated erythrocyte distribution width ratio 15. 4 % 10.0- 14.5 Automated blood platelet count (count/volume) 92 1 0*3/uL 130-400 Automated blood platelet mean volume measurement 9.9 [foz_us] 7.4-10.4 Automated blood neutrophils/100 leukocytes 86 % 42-75 Automated blood lymphocytes/100 leukocytes 6 % 12-44 Blood monocytes/100 leukocytes 7 % 0-12 Automated blood eosinophils/100 leukocytes 1 % 0-10 Automated blood basophils/100 leukocytes 0 % 0-10 Blood neutrophils automated count (number/volume) 7.8 10*3 1.8-7.8 Blood lymphocytes automated count (number/volume) 0.5 10*3 1.0-4.0 Blood monocytes automated count (number/volume) 0. 7 10*3 0.0-1.0 Automated eosinophil count 0.1 10*3/uL 0 .0-0.3 Automated blood basophil count (count/volume) 0.0 10*3/uL 0.0-0.1 Blood lactic acid measurement (moles/vol ume) - 08/09/18 03:14 Blood lactic acid measurement (moles/volume) 1.31 mmol/L 0.50-2.00 Comprehensive metabolic panel - 08/09/18 03:14 Serum or plasma sodium measurement (moles/volume) 134 mmol/L 135-145 Serum or plasma potassium measurement (moles/volume) 3.2 mmol/L 3.6-5.0 Serum or plasma chloride measurement (moles/volume) 93 mmol/L 98-107 Carbon dioxide 29 mmol/L 21-32 Serum or plasma anion gap determination (moles/volume) 12 mmol/L 5-14 Serum or plasma urea nitrogen measurement (mass/volume ) 40 mg/dL 7-18 Serum or plasma creatinine measurement (mass/volume) 2.20 mg/dL 0.60-1.30 Serum or plasma urea nitrogen/creatinine mass ratio 18 NRG Serum or plasma creatinine measurement w ith calculation of estimated glomerular filtration rate 31 NRG Serum or plasma glucose measurement (mass/volume) 307 mg/dL 70-105 Serum or plasma calcium measurement (mass/volume) 9.3 mg/dL 8.5-10.1 Serum or plasma total bilirubin measurement (mass/volu me) 1.0 mg/dL 0.1-1.0 Serum or plasma alkaline phosphatase hitesh surement (enzymatic activity/volume) 123 U/L 40-136 Serum or plasma aspartate aminotransfera se measurement (enzymatic activity/volume) 22 U/L 5-34 Serum or plasma alanine aminotransferase measurement (enzymatic activity/volume) 26 U/L 0-55 Serum or plasma protein measurement (mass/volume) 5.4 g/dL 6.4-8.2 Serum or plasma albumin measurement (mass/volume) 3.3 g/dL 3.2-4.5 CALCIUM CORRECTED 9.9 mg/dL 8.5-10.1 Blood manual differential performed dete ction - 08/09/18 03:14 Blood monocytes/100 leukocytes 5 % NRG Manual blood segmented neutrophils/100 leukocytes 84 % NRG Blood band neutrophils/100 leukocytes 4 % NRG Manual blood lymphocytes/100 leukocytes 5 % NRG Manual eosinophils/100 leukocytes in nose 2 % NRG Blood erythrocyte morphology finding identification NORMAL NRG Bacterial blood culture - 08/09/18 03:14 Bacterial blood culture NG NRG Bacterial blood culture - 08/09/18 03:55 Bacterial blood culture NG NRG Complete blood count (CBC) with automate d white blood cell (WBC) differential - 10/21/18 19:50 Blood leukocytes automated count (number/volume) 9.6 10*3/uL 4.3-11.0 Blood erythrocytes automated count (number/volume) 3.30 10*6/uL 4.35-5.85 Venous blood hemoglobin measurement (mass/volume) 11.1 g/dL 13.3-17.7 Blood hematocrit (volume fraction) 33 % 40-54 Automated erythrocyte mean corpuscular volume 100 [foz_us] 80-99 Automated erythrocyte mean corpuscular h emoglobin (mass per erythrocyte) 34 pg 25-34 Automated erythrocyte mean corpuscular h emoglobin concentration measurement (mass/volume) 34 g/dL 32-36 Automated erythrocyte distribution width ratio 15. 3 % 10.0- 14.5 Automated blood platelet count (count/volume) 89 1 0*3/uL 130-400 Automated blood platelet mean volume measurement 10.8 [foz_us] 7.4-10.4 Automated blood neutrophils/100 leukocytes 81 % 42-75 Automated blood lymphocytes/100 leukocytes 7 % 12-44 Blood monocytes/100 leukocytes 11 % 0-12 Automated blood eosinophils/100 leukocytes 1 % 0-10 Automated blood basophils/100 leukocytes 0 % 0-10 Blood neutrophils automated count (number/volume) 7.7 10*3 1.8-7.8 Blood lymphocytes automated count (number/volume) 0.7 10*3 1.0-4.0 Blood monocytes automated count (number/volume) 1. 1 10*3 0.0-1.0 Automated eosinophil count 0.1 10*3/uL 0 .0-0.3 Automated blood basophil count (count/volume) 0.0 10*3/uL 0.0-0.1 Blood manual differential performed dete ction - 10/21/18 19:50 Blood monocytes/100 leukocytes 9 % NRG Manual blood segmented neutrophils/100 leukocytes 81 % NRG Blood band neutrophils/100 leukocytes 3 % NRG Manual blood lymphocytes/100 leukocytes 6 % NRG Manual eosinophils/100 leukocytes in nose 1 % NRG Blood polychromasia detection by light microscopy NA NRG Blood anisocytosis detection by light microscopy S LIGHT NRG Blood macrocytes detection by light microscopy SLI GHT NRG PT panel in platelet poor plasma by coag ulation assay - 10/21/18 19:50 Prothrombin time (PT) in platelet poor plasma by coagu lation assay 15.3 s 12.2-14.7 INR in platelet poor plasma or blood by coagulation as say 1.2 0.8-1.4 Activated partial thromboplastin time (a PTT) in platelet poor plasma bycoagulation assay - 10/21/18 19:50 Activated partial thromboplastin time (a PTT) in platelet poor plasma bycoagulation assay 39 s 24-35 Comprehensive metabolic panel - 10/21/18 19:50 Serum or plasma sodium measurement (moles/volume) 139 mmol/L 135-145 Serum or plasma potassium measurement (moles/volume) 3.8 mmol/L 3.6-5.0 Serum or plasma chloride measurement (moles/volume) 96 mmol/L 98-107 Carbon dioxide 29 mmol/L 21-32 Serum or plasma anion gap determination (moles/volume) 14 mmol/L 5-14 Serum or plasma urea nitrogen measurement (mass/volume ) 28 mg/dL 7-18 Serum or plasma creatinine measurement (mass/volume) 3.23 mg/dL 0.60-1.30 Serum or plasma urea nitrogen/creatinine mass ratio 9 NRG Serum or plasma creatinine measurement w ith calculation of estimated glomerular filtration rate 20 NRG Serum or plasma glucose measurement (mass/volume) 92 mg/dL 70-105 Serum or plasma calcium measurement (mass/volume) 9.5 mg/dL 8.5-10.1 Serum or plasma total bilirubin measurement (mass/volu me) 1.2 mg/dL 0.1-1.0 Serum or plasma alkaline phosphatase hitesh surement (enzymatic activity/volume) 112 U/L 40-136 Serum or plasma aspartate aminotransfera se measurement (enzymatic activity/volume) 17 U/L 5-34 Serum or plasma alanine aminotransferase measurement (enzymatic activity/volume) 8 U/L 0-55 Serum or plasma protein measurement (mass/volume) 6.1 g/dL 6.4-8.2 Serum or plasma albumin measurement (mass/volume) 3.7 g/dL 3.2-4.5 CALCIUM CORRECTED 9.7 mg/dL 8.5-10.1 Magnesium - 10/21/18 19:50 Magnesium 2.0 mg/dL 1.8-2.4 Serum or plasma amylase measurement (enz ymatic activity/volume) - 10/21/18 19:50 Serum or plasma amylase measurement (enzymatic activit y/volume) 46 U/L 25-125 Lipase - 10/21/18 19:50 Lipase 25 U/L 8-78 Complete blood count (CBC) with automate d white blood cell (WBC) differential - 10/22/18 03:03 Blood leukocytes automated count (number/volume) 7.5 10*3/uL 4.3-11.0 Blood erythrocytes automated count (number/volume) 2.98 10*6/uL 4.35-5.85 Venous blood hemoglobin measurement (mass/volume) 10.2 g/dL 13.3-17.7 Blood hematocrit (volume fraction) 30 % 40-54 Automated erythrocyte mean corpuscular volume 100 [foz_us] 80-99 Automated erythrocyte mean corpuscular h emoglobin (mass per erythrocyte) 34 pg 25-34 Automated erythrocyte mean corpuscular h emoglobin concentration measurement (mass/volume) 34 g/dL 32-36 Automated erythrocyte distribution width ratio 15. 0 % 10.0- 14.5 Automated blood platelet count (count/volume) 11 1 0*3/uL 130-400 Automated blood platelet mean volume measurement 9.5 [foz_us] 7.4-10.4 Automated blood neutrophils/100 leukocytes 75 % 42-75 Automated blood lymphocytes/100 leukocytes 11 % 12-44 Blood monocytes/100 leukocytes 13 % 0-12 Automated blood eosinophils/100 leukocytes 1 % 0-10 Automated blood basophils/100 leukocytes 0 % 0-10 Blood neutrophils automated count (number/volume) 5.6 10*3 1.8-7.8 Blood lymphocytes automated count (number/volume) 0.8 10*3 1.0-4.0 Blood monocytes automated count (number/volume) 0. 9 10*3 0.0-1.0 Automated eosinophil count 0.1 10*3/uL 0 .0-0.3 Automated blood basophil count (count/volume) 0.0 10*3/uL 0.0-0.1 Comprehensive metabolic panel - 10/22/18 03:03 Serum or plasma sodium measurement (moles/volume) 138 mmol/L 135-145 Serum or plasma potassium measurement (moles/volume) 3.7 mmol/L 3.6-5.0 Serum or plasma chloride measurement (moles/volume) 101 mmol/L 98-107 Carbon dioxide 23 mmol/L 21-32 Serum or plasma anion gap determination (moles/volume) 14 mmol/L 5-14 Serum or plasma urea nitrogen measurement (mass/volume ) 31 mg/dL 7-18 Serum or plasma creatinine measurement (mass/volume) 3.55 mg/dL 0.60-1.30 Serum or plasma urea nitrogen/creatinine mass ratio 9 NRG Serum or plasma creatinine measurement w ith calculation of estimated glomerular filtration rate 18 NRG Serum or plasma glucose measurement (mass/volume) 71 mg/dL 70-105 Serum or plasma calcium measurement (mass/volume) 9.1 mg/dL 8.5-10.1 Serum or plasma total bilirubin measurement (mass/volu me) 0.9 mg/dL 0.1-1.0 Serum or plasma alkaline phosphatase hitesh surement (enzymatic activity/volume) 98 U/L 40-136 Serum or plasma aspartate aminotransfera se measurement (enzymatic activity/volume) 16 U/L 5-34 Serum or plasma alanine aminotransferase measurement (enzymatic activity/volume) < U/L 0-55 Serum or plasma protein measurement (mass/volume) 5.2 g/dL 6.4-8.2 Serum or plasma albumin measurement (mass/volume) 3.3 g/dL 3.2-4.5 CALCIUM CORRECTED 9.7 mg/dL 8.5-10.1 PLATELET PHERESIS LR - 10/22/18 04:27 PLATELET PHERESIS LR TRANSFUS ED 10/22/18 0537 [facility] Blood type T Indirect antibody screen pa corrie - 10/22/18 04:27 ABO+Rh group BN NR Transfusion band number [id number] NR Blood group antibody screen NEGATIVE NR G Complete urinalysis with reflex to cultu re - 10/22/18 06:50 Urine color determination YELLOW NRG Urine clarity determination SLIGHTLY CLOUDY NRG Urine pH measurement by test strip 8 5-9 Specific gravity of urine by test strip 1.015 1.016-1.022 Urine protein assay by test strip, semi-quantitative 3+ NEGATIVE Urine glucose detection by automated test strip NE GATIVE NEGATIVE Erythrocytes detection in urine sediment by light micr oscopy 3+ NEGATIVE Urine ketones detection by automated test strip 1+ NEGATIVE Urine nitrite detection by test strip POSITIVE NEGATIVE Urine total bilirubin detection by test strip NEGA TIVE NEGATIVE Urine urobilinogen measurement by automated test strip (mass/volume) NORMAL NORMAL Urine leukocyte esterase detection by dipstick 3+ NEGATIVE Automated urine sediment erythrocyte cou nt by microscopy (number/high power field) [HPF] NRG Automated urine sediment leukocyte count by microscopy (number/high power field) TNTC NRG Bacteria detection in urine sediment by light microsco py MODERATE NRG Crystals detection in urine sediment by light microsco py NONE NRG Casts detection in urine sediment by light microscopy NONE NRG Mucus detection in urine sediment by light microscopy NEGATIVE NRG Complete urinalysis with reflex to culture YES NRG Bacterial urine culture - 10/22/18 06:50 Bacterial urine culture [id number] NRG COLONY COUNT >100,000/ML NRG FTX;REPORTABLE SENSITIVITY REPORTED 10/25/18 11:05 NRG FREE TEXT ENTRY 3 RML SENT ID REPORT 10/23 17:05 NRG RML Sensitivity Panel - 10/22/18 06:50 Gentamicin susceptibility test by minimum inhibitory c oncentration <= NRG Levofloxacin susceptibility test by minimum inhibitory concentration <= NRG Tobramycin susceptibility test by minimum inhibitory c oncentration S NRG Piperacillin/tazobactam susceptibility t est by minimum inhibitory concentration > NRG Ciprofloxacin susceptibility test by minimum inhibitor y concentration 1 NRG Meropenem susceptibility test by minimum inhibitory co ncentration > NRG Aztreonam susceptibility test by minimum inhibitory co ncentration > NRG Cefepime susceptibility test by minimum inhibitory con centration > NRG Imipenem susceptibility test by minimum inhibitory con centration 8 NRG Ceftazidime susceptibility test by minimum inhibitory concentration > NRG Complete blood count (CBC) with automate d white blood cell (WBC) differential - 10/22/18 09:14 Blood leukocytes automated count (number/volume) 7.4 10*3/uL 4.3-11.0 Blood erythrocytes automated count (number/volume) 2.92 10*6/uL 4.35-5.85 Venous blood hemoglobin measurement (mass/volume) 10.0 g/dL 13.3-17.7 Blood hematocrit (volume fraction) 29 % 40-54 Automated erythrocyte mean corpuscular volume 100 [foz_us] 80-99 Automated erythrocyte mean corpuscular h emoglobin (mass per erythrocyte) 34 pg 25-34 Automated erythrocyte mean corpuscular h emoglobin concentration measurement (mass/volume) 34 g/dL 32-36 Automated erythrocyte distribution width ratio 15. 2 % 10.0- 14.5 Automated blood platelet count (count/volume) 91 1 0*3/uL 130-400 Automated blood platelet mean volume measurement 10.1 [foz_us] 7.4-10.4 Automated blood neutrophils/100 leukocytes 80 % 42-75 Automated blood lymphocytes/100 leukocytes 8 % 12-44 Blood monocytes/100 leukocytes 11 % 0-12 Automated blood eosinophils/100 leukocytes 1 % 0-10 Automated blood basophils/100 leukocytes 0 % 0-10 Blood neutrophils automated count (number/volume) 5.9 10*3 1.8-7.8 Blood lymphocytes automated count (number/volume) 0.6 10*3 1.0-4.0 Blood monocytes automated count (number/volume) 0. 8 10*3 0.0-1.0 Automated eosinophil count 0.1 10*3/uL 0 .0-0.3 Automated blood basophil count (count/volume) 0.0 10*3/uL 0.0-0.1 Capillary blood glucose measurement by g lucometer (mass/volume) - 10/22/18 10:32 Capillary blood glucose measurement by glucometer (mas s/volume) 74 mg/dL 70-110 Capillary blood glucose measurement by g lucometer (mass/volume) - 10/22/18 15:52 Capillary blood glucose measurement by glucometer (mas s/volume) 67 mg/dL 70-110 Capillary blood glucose measurement by g lucometer (mass/volume) - 10/22/18 20:54 Capillary blood glucose measurement by glucometer (mas s/volume) 173 mg/dL 70-110 Complete blood count (CBC) with automate d white blood cell (WBC) differential - 10/23/18 04:20 Blood leukocytes automated count (number/volume) 7.4 10*3/uL 4.3-11.0 Blood erythrocytes automated count (number/volume) 2.91 10*6/uL 4.35-5.85 Venous blood hemoglobin measurement (mass/volume) 9.7 g/dL 13.3-17.7 Blood hematocrit (volume fraction) 29 % 40-54 Automated erythrocyte mean corpuscular volume 100 [foz_us] 80-99 Automated erythrocyte mean corpuscular h emoglobin (mass per erythrocyte) 33 pg 25-34 Automated erythrocyte mean corpuscular h emoglobin concentration measurement (mass/volume) 33 g/dL 32-36 Automated erythrocyte distribution width ratio 14. 5 % 10.0- 14.5 Automated blood platelet count (count/volume) 91 1 0*3/uL 130-400 Automated blood platelet mean volume measurement 10.4 [foz_us] 7.4-10.4 Automated blood neutrophils/100 leukocytes 73 % 42-75 Automated blood lymphocytes/100 leukocytes 13 % 12-44 Blood monocytes/100 leukocytes 11 % 0-12 Automated blood eosinophils/100 leukocytes 2 % 0-10 Automated blood basophils/100 leukocytes 0 % 0-10 Blood neutrophils automated count (number/volume) 5.5 10*3 1.8-7.8 Blood lymphocytes automated count (number/volume) 1.0 10*3 1.0-4.0 Blood monocytes automated count (number/volume) 0. 8 10*3 0.0-1.0 Automated eosinophil count 0.2 10*3/uL 0 .0-0.3 Automated blood basophil count (count/volume) 0.0 10*3/uL 0.0-0.1 Comprehensive metabolic panel - 10/23/18 04:20 Serum or plasma sodium measurement (moles/volume) 136 mmol/L 135-145 Serum or plasma potassium measurement (moles/volume) 3.5 mmol/L 3.6-5.0 Serum or plasma chloride measurement (moles/volume) 100 mmol/L 98-107 Carbon dioxide 24 mmol/L 21-32 Serum or plasma anion gap determination (moles/volume) 12 mmol/L 5-14 Serum or plasma urea nitrogen measurement (mass/volume ) 41 mg/dL 7-18 Serum or plasma creatinine measurement (mass/volume) 4.66 mg/dL 0.60-1.30 Serum or plasma urea nitrogen/creatinine mass ratio 9 NRG Serum or plasma creatinine measurement w ith calculation of estimated glomerular filtration rate 13 NRG Serum or plasma glucose measurement (mass/volume) 100 mg/dL 70-105 Serum or plasma calcium measurement (mass/volume) 9.1 mg/dL 8.5-10.1 Serum or plasma total bilirubin measurement (mass/volu me) 0.8 mg/dL 0.1-1.0 Serum or plasma alkaline phosphatase hitesh surement (enzymatic activity/volume) 93 U/L 40-136 Serum or plasma aspartate aminotransfera se measurement (enzymatic activity/volume) 15 U/L 5-34 Serum or plasma alanine aminotransferase measurement (enzymatic activity/volume) < U/L 0-55 Serum or plasma protein measurement (mass/volume) 5.1 g/dL 6.4-8.2 Serum or plasma albumin measurement (mass/volume) 3.2 g/dL 3.2-4.5 CALCIUM CORRECTED 9.7 mg/dL 8.5-10.1 Capillary blood glucose measurement by g lucometer (mass/volume) - 10/23/18 11:14 Capillary blood glucose measurement by glucometer (mas s/volume) 217 mg/dL 70-110 Encounters ACCT No. Visit Date/Time Discharge Status Pt. Type Provider Facility Loc./Unit Complaint [id number] 10/19/2019 14:02:00 15:38:00 DIS [facility]NE[facility];ESRD [id number] 12/18/2019 10:40:00 23:59:59 CLS Outpatient DARIO QUIROZ MD [facility] [id number] 12/11/2019 10:16:00 23:59:59 CLS Outpatient OXANA BOOKER MD [facility] [id number] 09/10/2019 13:39:00 23:59:59 CLS Preadmit KEILA TUCKER DO [facility] RAD PAIN IN RIGHT HIP [id number] 09/03/2019 15:33:00 23:59:59 CLS Outpatient KEILA TUCKER DO [facility] RAD PAIN IN RIGHT H IP [id number] 07/06/2019 00:12:00 23:59:59 CLS Preadmit [facility] GENER[facility] WEAKNESS [id number] 06/13/2019 11:00:00 00:01:00 DIS Outpatient [facility] GENERAL WEAKNES S [id number] 04/04/2019 09:45:00 00:01:00 DIS Outpatient KEILA TUCKER DO [facility] GENERAL WEAKKINDRA S [id number] 01/03/2019 14:15:00 00:01:00 DIS Outpatient KEILA TUCKER DO [facility] GENERAL CARINE S [id number] 10/21/2018 20:40:00 14:15:00 DIS Inpatient TUCKER KEILA [facility] 4TH GASTIRITS WITH COFFEE- GROUND EMESIS, IDDM [id number] 08/09/2018 02:55:00 04:47:00 DIS Emergency TIARRA ESPINOSA MD [facility] ER FEEDING TUBE ISSUES,MARIMAR VATED BLOOD SUGAR [id number] 07/29/2018 16:57:00 23:59:59 CLS Outpatient KEILA TUCKER DO [facility] HH ABNORMAL COLOR OF SPUTUM R09.3 [id number] 06/22/2018 10:00:00 09:00:00 DIS Inpatient COLLEEN PHILLIPS, FISH Rai [facility] IRF DISUSE MYOPATHY [id number] 01/09/2018 12:07:00 18:25:00 DIS Outpatient GENE PHILLIPS, BEBETO Mccarty [facility] SDC GLUTEAL MASS [id number] 12/19/2017 06:40:00 23:59:59 CLS Outpatient KEILA TUCKER DO [facility] CARD R07.9 CHEST KOBY N,HEART MURMUR [id number] 12/19/2015 10:01:00 10:05:00 DIS Emergency KHALIDA BOTELLO MD [facility] ER STAPLE REMOVAL [id number] 12/12/2015 13:07:00 15:10:00 DIS Emergency LALY ALAMO [facility] ER HEAD LAC [id number] 08/19/2011 14:38:00 Document Registration
--- NOTE | 2020-04-18 05:42 | ED General ---
General Chief Complaint: General Problems/Pain Stated Complaint: WEAK Source of Information: Patient (LIMITED HISTORIAN) (JEYSON BYRNES DO) History of Present Illness Date Seen by Provider: Apr 18, 2020 Time Seen by Provider: 05:20 Initial Comments PT ARRIVES VIA EMS FROM HOME C/O GENERALIZED WEAKNESS IS ONGOING PROBLEM PT HAS ESRD AND IS ON PERITONEAL DIALYSIS FOR THE LAST 1 1/2 YEARS. STATES HE COMPLETED HIS DIALYSIS FOR TONIGHT, JUST PRIOR TO ARRIVAL PT WAS JUST RELEASED FROM [facility] 2 DAYS AGO, PT STATES HE HAD BEEN THERE FOR 2 WEEKS IN REHAB DUE TO GENERALIZED WEAKNESS HE HAD BEEN AT [facility] FOR 2 WEEKS PRIOR TO THAT, WAS "SEPTIC" AND HAD HIS LEFT 5TH TOE AMPUTATED 2 WEEKS AGO--WAS TRANSFERRED FROM [facility] TO [facility] FOR REHAB PT STATES HE FINISHED HIS ANTIBIOTIC YESTERDAY STATES THE INFECTION IN HIS TOE/FOOT HAS CLEARED UP PT DENIES FEVER/SWEATS/CHILLS PT DENIES CHEST PAIN NO SHORTNESS OF BREATH NO COUGH OR URI SYMPTOMS NO HEADACHE NO VISION CHANGES NO PARESTHESIAS OR MOTOR DEFICITS NO NAUSEA/VOMITING/DIARRHEA OR ABDOMINAL PAIN NO URINARY SYMPTOMS--STATES HE STILL MAKES URINE. NO PAIN ANYWHERE STATES HE HAS BEEN EATING AND DRINKING NORMALLY EMS REPORT THAT STATED "HE DOES THIS EVERY TIME HE GETS HOME FROM THE HOSPITAL" PCP: DR. DEL ROSARIO [employer] ARCHITECT: DR Her" (JEYSON BYRNES DO) Allergies and Home Medications Allergies Coded Allergies: No Known Drug Allergies (Unverified , 12/12/15) Home Medications Bupropion HCl 100 Mg Tablet, 150 MG PO BID Prescribed by: GEORGE SUNSHINE on 10/22/18 1245 Carvedilol 12.5 Mg Tablet, 12.5 MG PO BID Prescribed by: GEORGE SUNSHINE on 10/22/18 1245 Cefdinir 300 Mg Capsule, 300 MG PO Q48H Prescribed by: MARTHA MADDEN on 10/23/18 1000 Famotidine 20 Mg Tablet, 20 MG PO BID Prescribed by: GEORGE SUNSHINE on 10/22/18 1246 Lorazepam 2 Mg Tablet, 2 MG PO HS Prescribed by: GEORGE SUNSHINE on 10/22/18 1257 Omeprazole 40 Mg Capsule.dr, 40 MG PO DAILY Prescribed by: MARTHA MADDEN on 10/23/18 1000 Ondansetron 4 Mg Tab.rapdis, 4 MG PO Q6H Prescribed by: MARTHA MADDEN on 10/23/18 1000 Prednisone 1 Mg Tab, 6 MG PO DAILY Prescribed by: GEORGE SUNSHINE on 10/22/18 1259 Tramadol HCl 50 Mg Tablet, 50 MG PO Q6H Prescribed by: GEORGE SUNSHINE on 10/22/18 1256 Patient Home Medication List Home Medication List Reviewed: Yes (TIARRA ESPINOSA) Review of Systems Review of Systems Constitutional: see HPI; No chills, No diaphoresis, No dizziness, No fever; malaise, weakness EENTM: no symptoms reported; No nose congestion, No throat pain Respiratory: no symptoms reported; No cough, No short of breath Cardiovascular: no symptoms reported; No chest pain, No palpitations, No syncope Gastrointestinal: no symptoms reported; No abdominal pain, No diarrhea, No loss of appetite, No nausea, No vomiting Genitourinary: no symptoms reported; No decreased output, No dysuria Musculoskeletal: no symptoms reported Skin: no symptoms reported Psychiatric/Neurological: No Symptoms Reported; Denies Headache, Denies Numbness, Denies Paresthesia, Denies Seizure, Denies Tingling, Denies Weakness Hematologic/Lymphatic: No Symptoms Reported Immunological/Allergic: no symptoms reported (JEYSON BYRNES DO) Past Ucojiok-Layslf-Xqzldd Hx Past Med/Social Hx: Reviewed and Corrections made (JEYSON BYRNES DO) Patient Social History Type Used: Cigarettes Former Smoker, Quit: Dec 19, 2017 Recent Hopitalizations: Yes (JEYSON BYRNES DO) Immunizations Up To Date Tetanus Booster (TDap): More than 5yrs Date of Pneumonia Vaccine: Sep 16, 2018 Date of Influenza Vaccine: Sep 16, 2018 (JEYSON BYRNES DO) Seasonal Allergies Seasonal Allergies: No (JEYSON BYRNES DO) Past Medical History Surgeries: Yes (PERITONEAL DIALYSIS;L 5TH TOE AMPUTATED 03/2020) Abdominal, Amputation, Cardiac, Coronary Stent, Dialysis, Tonsillectomy, Tracheostomy, Valve Replacement, Vascular Surgery Respiratory: Yes Cardiac: Yes Atrial Fibrillation, Endocarditis, Heart Murmur, Hypertension Neurological: Yes Traumatic Brain Injury Genitourinary: Yes (PEROTONEAL DIALYSIS ) Renal Failure, Dialysis Gastrointestinal: Yes (S/P PEG TUBE AND REMOVAL;CHRONIC NAUSEA/VOMITING) Gastroesophageal Reflux, Gastrointestinal Bleed Musculoskeletal: Yes (RLE BRACE; IMPAIRED AMBULATION SECONDARY TO ALL OF THE ABOVE;L 5TH TOE AMPU) Amputee, Foot Drop Endocrine: Yes Diabetes, Non-Insulin dep HEENT: Yes (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 11.2oz. 76.466813tu; 20.0 BMI Method:Stated General Appearance: No Apparent Distress, WD/WN, Chronically ill, Other (MILDLY LETHARGIC, SPEECH CLEAR. ) HEENT: PERRL/EOMI Neck: Normal Inspection Respiratory: Normal Breath Sounds, No Accessory Muscle Use, No Respiratory Distress Cardiovascular: Regular Rate, Rhythm, No Edema, No JVD, Systolic Murmur (FAINT) Gastrointestinal: Non Tender, Soft, Other (PERITONEAL DIALYSIS SITE APPEARS NORMAL WITH NO SIGNS OF INFECTION) Back: No CVA Tenderness Extremity: Normal Capillary Refill, No Pedal Edema, Other (LEFT 5TH TOE AMPUTATION SITE--DRESSING IN PLACE AND IS CLEAN AND DRY. NO OBVIOUS EVIDENCE OF INFECTION. PULSES +1/4 BILATERALLY. ) Neurologic/Psychiatric: Alert, Oriented x3 (BUT SOME MEMORY IMPAIRMENT), No Motor/Sensory Deficits (GROSSLY INTACT. ), braider tender II-XII Norm as Tested Skin: Normal Color, Warm/Dry (JEFF,JEYSON Cardona ) Progress/Results/Core Measures Suspected Sepsis SIRS Temperature: Pulse: Respiratory Rate: Blood Pressure / Mean: (JEFF,JEYSON Cardona DO) Results/Orders Lab Results Laboratory Tests Test 04/18/20 05:48 04/18/20 06:30 Range/Units Glucometer 141 H 70-110 MG/DL White Blood Count 12.4 H 4.3-11.0 10^3/uL Red Blood Count 2.92 L 4.35-5.85 10^6/uL Hemoglobin 9.7 L 13.3-17.7 G/DL Hematocrit 28 L 40-54 % Mean Corpuscular Volume 95 80-99 FL Mean Corpuscular Hemoglobin 33 25-34 PG Mean Corpuscular Hemoglobin Concent 35 32-36 G/DL Red Cell Distribution Width 13.9 10.0-14.5 % Platelet Count 98 L 130-400 10^3/uL Mean Platelet Volume 11.4 H 7.4-10.4 FL Neutrophils (%) (Auto) 78 H 42-75 % Lymphocytes (%) (Auto) 7 L 12-44 % Monocytes (%) (Auto) 8 0-12 % Eosinophils (%) (Auto) 7 0-10 % Basophils (%) (Auto) 0 0-10 % Neutrophils # (Auto) 9.7 H 1.8-7.8 X 10^3 Lymphocytes # (Auto) 0.8 L 1.0-4.0 X 10^3 Monocytes # (Auto) 1.0 0.0-1.0 X 10^3 Eosinophils # (Auto) 0.9 H 0.0-0.3 10^3/uL Basophils # (Auto) 0.0 0.0-0.1 10^3/uL Neutrophils % (Manual) 79 % Lymphocytes % (Manual) 7 % Monocytes % (Manual) 7 % Eosinophils % (Manual) 7 % Spherocytes SLIGHT Prothrombin Time 13.1 12.2-14.7 SEC INR Comment 1.0 0.8-1.4 Activated Partial Thromboplast Time 32 24-35 SEC Sodium Level 137 135-145 MMOL/L Potassium Level 4.1 3.6-5.0 MMOL/L Chloride Level 100 98-107 MMOL/L Carbon Dioxide Level 25 21-32 MMOL/L Anion Gap 12 5-14 MMOL/L Blood Urea Nitrogen 75 H 7-18 MG/DL Creatinine 10.17 H 0.60-1.30 MG/DL Estimat Glomerular Filtration Rate 5 BUN/Creatinine Ratio 7 Glucose Level 134 H 70-105 MG/DL Calcium Level 10.3 H 8.5-10.1 MG/DL Corrected Calcium 10.8 H 8.5-10.1 MG/DL Magnesium Level 2.7 H 1.6-2.4 MG/DL Total Bilirubin 0.4 0.1-1.0 MG/DL Aspartate Amino Transf (AST/SGOT) 22 5-34 U/L Alanine Aminotransferase (ALT/SGPT) 23 0-55 U/L Alkaline Phosphatase 82 40-136 U/L Troponin I 0.057 H <0.028 NG/ML Total Protein 5.8 L 6.4-8.2 GM/DL Albumin 3.4 3.2-4.5 GM/DL (TIARRA ESPINOSA) Vital Signs/I&O 04/18/20 05:25 Temp 37.1 Pulse 85 Resp 18 B/P (MAP) 109/42 (64) Pulse Ox 96 (TIARRA ESPINOSA) Vital Signs/I&O Capillary Refill : (JEYSON BYRNES DO) Progress Note : Progress Note 0630--CARE TURNED OVER TO DR. ESPINOSA, ALL STUDIES PENDING. VITALS STABLE. PT RESTING QUIETLY (JEYSON BYRNES DO) Progress Note #1: Progress Note Assumed care of the patient at shift change. Patient resting comfortably. Pending labs and we will attempt placement with [facility] if it's appropriate. I'm informed that our local inpatient rehabilitation will not accept patients on peritoneal dialysis. Progress Note #2: Time: 08:03 Progress Note Labs reviewed with patient. History and physical exam review the patient. I agree with what is documented above by Dr. Byrnes. Patient would likely benefit from more inpatient rehabilitation. I reviewed his wound on his foot and it does not look erythematous, swollen or tender. He does have good dorsal pedal pulse 1 out of 4 bilaterally. He does not have a history of peripheral arterial disease or coronary disease but he does have a history of porcine valve replacement. He is not on blood thinners. We discussed the case with local inpatient rehabilitation and they will not accept patients on peritoneal dialysis. We will try to see if [facility] would take him back inpatient rehabilitation. Progress Note #3: Time: 08:24 Progress Note Discussed the case with Dr. Geller, [place] and he recommends that the patient would not be getting admitted to inpatient rehabilitation at earliest until Tuesday and would just be taking up a bed. His recommendation would be sending the patient home to follow-up with primary care next week. We discussed the case with our local hospitals and they will not be able to do his peritoneal dialysis inpatient. Progress Note #4: Time: 09:10 Progress Note Discussed case with his when the phone and she expressed frustration that she did not feel he was ready to go home from rehabilitation. When she talked to the rehabilitation doctor told her to just come back if he got worse. I did reiterate that we spoke to [facility] and they are unwilling to accept the patient back in the rehabilitation until Tuesday. Explain her brief tried 2 different rehabs and 2 different hospitals and all have told him to talk to his primary care doctor on Tuesday. Suggested involving family friend's neighbor's etc. to help get through the weekend. Answered her questions and she said that she would try and call the inpatient rehabilitation doctor and that he would not accept the patient back and she would come pick the patient up. (TIARRA ESPINOSA) ECG Initial ECG Impression Date: Apr 18, 2020 Initial ECG Impression Time: 05:38 Initial ECG Rate: 84 Initial ECG Rhythm: Normal Sinus (IVCD) (JEYSON BYRNES DO) Initial ECG Intervals: Normal Initial ECG Impression: Normal Comment Normal sinus rhythm without clinically relevant ST T wave arrangement. Interventricular conduction delay noted. (TIARRA ESPINOSA) Diagnostic Imaging Comments CXR--PER RADIOLOGIST REPORT AT 0627 IMPRESSION: 1. Mild cardiomegaly and probable mild vascular congestion. 2. No focal infiltrate. Reviewed: Reviewed by Me (JEYSON BYRNES DO) Diagonstic Imaging: Xray Plain Films/CT/US/NM/MRI: chest Comments [facility], [place], [place] NAME: DARIO FRANKS [facility] REC#: [id number] PT STATUS: REG ER : 1960 PHYSICIAN: JEYSON BYRNES DO ADMIT DATE: 04/18/20/ER Draft Date of Exam:04/18/20 CHEST 1 VIEW, AP/PA ONLY INDICATION: Weakness. COMPARISON: 08/09/2018 FINDINGS: Single frontal radiographic view of the chest was obtained and demonstrates mild cardiomegaly and mild prominence of the pulmonary vasculature. Sternotomy wires are noted. Right upper extremity central venous catheter seen with tip at the cavoatrial junction. Lungs are clear. There is no focal consolidation, large effusion, nor pneumothorax. Osseous structures show no acute abnormalities. IMPRESSION: 1. Mild cardiomegaly and probable mild vascular congestion. 2. No focal infiltrate. Dictated on workstation # [id number] Dict: 04/18/20621 Trans: 04/18/2025 [id number] Interpreted by: SARAH CORRIGAN MD Electronically signed by: (TIARRA ESPINOSA) Departure Impression Primary Impression: Physical debility Additional Impression: Peritoneal dialysis status Disposition: HOME, SELF-CARE Condition: Stable Departure-Patient Inst. Decision time for Depature: 09:00 (TIARRA ESPINOSA) Referrals: KEILA DEL ROSARIO DO (PCP/Family) Primary Care Physician Patient Instructions: Generalized Weakness (DC) Add. Discharge Instructions: Tuesday morning call Dr. Del Rosario and asked him to help you get back into re habilitation. If you're unable to get through the weekend you can try calling local nursing homes looking for placement or trying contract with a private medical assistant prn. I suggest talking to friends, family, neighbor's etc. for help if necessary. If his symptoms worsen or he develops fever, vomiting or other worrisome symptoms then please return to the ER for reevaluation. All discharge instructions reviewed with patient and/or family. Voiced understanding. JEYSON BYRNES DO Apr 18, 2020 05:42 TIARRA ESPINOSA Apr 18, 2020 07:13
--- NOTE | 2020-04-18 06:25 | Diagnostic Imaging Report ---
INDICATION: Weakness. COMPARISON: 08/09/2018 FINDINGS: Single frontal radiographic view of the chest was obtained and demonstrates mild cardiomegaly and mild prominence of the pulmonary vasculature. Sternotomy wires are noted. Right upper extremity central venous catheter seen with tip at the cavoatrial junction. Lungs are clear. There is no focal consolidation, large effusion, nor pneumothorax. Osseous structures show no acute abnormalities. IMPRESSION: 1. Mild cardiomegaly and probable mild vascular congestion. 2. No focal infiltrate. Dictated by: Dictated on workstation # [id number]
--- NOTE | 2020-04-18 07:00 | NUR ---
PT RESTING IN ROOM AWAITING RESULTS
[2020-04-18 07:12] LABS: ALBUMIN 3.4 GM/DL (3.2-4.5)
[2020-04-18 07:13] LABS: POTASSIUM 4.1 MMOL/L (3.6-5.0); PROTHROMBIN TIME PATIENT 13.1 SEC (12.2-14.7)
[2020-04-18 07:14] LABS: BASOPHILS % (AUTO) 0 % (0-10); CALCIUM 10.3 MG/DL (8.5-10.1); EOSINOPHILS # (AUTO) 0.9 10^3/uL (0.0-0.3); EOSINOPHILS % (AUTO) 7 % (0-10); HEMATOCRIT 28 % (40-54); HEMOGLOBIN 9.7 G/DL (13.3-17.7); LYMPHOCYTES # (AUTO) 0.8 X 10^3 (1.0-4.0); LYMPHOCYTES % (AUTO) 7 % (12-44); MEAN CORPUSCULAR HEMOGLOBIN 33 PG (25-34); MEAN CORPUSCULAR HGB CONC 35 G/DL (32-36); MEAN CORPUSCULAR VOLUME 95 FL (80-99); MEAN PLATELET VOLUME 11.4 FL (7.4-10.4); MONOCYTES % (AUTO) 8 % (0-12); NEUTROPHILS # (AUTO) 9.7 X 10^3 (1.8-7.8); NEUTROPHILS % (AUTO) 78 % (42-75); PLATELET COUNT 98 10^3/uL (130-400); RED CELL DISTRIBUTION WIDTH 13.9 % (10.0-14.5); WHITE BLOOD COUNT 12.4 10^3/uL (4.3-11.0)
[2020-04-18 07:15] LABS: TOTAL PROTEIN 5.8 GM/DL (6.4-8.2)
[2020-04-18 07:17] LABS: BILIRUBIN,TOTAL 0.4 MG/DL (0.1-1.0)
[2020-04-18 07:19] LABS: CREATININE SERUM 10.17 MG/DL (0.60-1.30)
[2020-04-18 07:21] LABS: MAGNESIUM 2.7 MG/DL (1.6-2.4)
[2020-04-18 08:06] LABS: EOSINOPHILS % (MANUAL) 7 %; LYMPHOCYTES % (MANUAL) 7 %; MONOCYTES % (MANUAL) 7 %; NEUTROPHILS % (MANUAL) 79 %
[2020-04-18 08:07] LABS: SPHEROCYTES SLIGHT
[2020-04-18 09:34] VITALS: BP 127/53
== END 2020-04-18 09:34 | disposition home or self-care (01) ==
LOC: EDUNIT# 05:21 → ER 05:23
DX: R53.81 Other malaise (principal); N18.6 End stage renal disease; Z99.2 Dependence on renal dialysis; Z89.422 Acquired absence of other left toe(s); Z95.5 Presence of coronary angioplasty implant and graft; Z95.2 Presence of prosthetic heart valve; I48.91 Unspecified atrial fibrillation; I13.11 Hypertensive heart and chronic kidney disease without heart failure, with stage 5 chronic kidney disease, or end stage renal disease; K21.9 Gastro-esophageal reflux disease without esophagitis; Z87.19 Personal history of other diseases of the digestive system; E11.9 Type 2 diabetes mellitus without complications; F32.9 Major depressive disorder, single episode, unspecified; I38 Endocarditis, valve unspecified; Z79.899 Other long term (current) drug therapy; Z79.52 Long term (current) use of systemic steroids; Z87.891 Personal history of nicotine dependence
CPT/HCPCS: 36415; 71045; 80053; 82962; 83735; 84484; 85007; 85027; 85610; 85730; 93005; 93041

== ENCOUNTER 2021-03-22 11:17 | Emergency (ER) | payer MEDICARE, OTHER ==
[~2021-03-22] VITALS: Ht 180.3 cm; Wt 94.3 kg
[~2021-03-22 11:17] MED LIST changes: +ASPI-1238 PO; -ASPI-983 PO; -FOLI1TAB24 PEG; -FOLI1TAB24 PO; +FOLI1TAB33 PEG; +FOLI1TAB33 PO; -METO10TA3 PO; +MTC10T PO
--- NOTE | 2021-03-22 12:09 | ED Upper Extremity ---
General Chief Complaint: Upper Extremity Stated Complaint: RIGHT SHOULDER PAIN Nursing Triage Note: PT TO ROOM TRIAGE VIA W/C WITH C/O RIGHT SHOULDER PAIN AFTER FALLING LAST NIGHT. PT REPORTS LIMITED MOBILITY. 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 PT STATES THAT SHOULDER DOES NOT HURT UNLESS HE TRIES TO USE THE RIGHT ARM. Nursing Sepsis Screen: No Definite Risk Source: patient Exam Limitations: no limitations (HOLGER DICKINSON APRN) History of Present Illness Date Seen by Provider: Mar 22, 2021 Time Seen by Provider: 11:40 Initial Comments Right shoulder pain after a fall last night landing on the shoulder. Did not hit his head,no other injuries. 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 Has dialysis fistula in left upper arm Onset: yesterday Severity: moderate Pain/Injury Location: right shoulder Method of Injury: fell Modifying Factors: Worse With Movement (HOLGER DICKINSON APRN) Allergies and Home Medications Allergies Coded Allergies: No Known Drug Allergies (Unverified , 12/12/15) Home Medications Bupropion HCl 100 Mg Tablet, 150 MG PO BID Prescribed by: GEORGE SUNSHINE on 10/22/18 1245 Carvedilol 12.5 Mg Tablet, 12.5 MG PO BID Prescribed by: GEORGE SUNSHINE on 10/22/18 1245 Cefdinir 300 Mg Capsule, 300 MG PO Q48H Prescribed by: MARTHA MADDEN on 10/23/18 1000 Famotidine 20 Mg Tablet, 20 MG PO BID Prescribed by: GEORGE SUNSHINE on 10/22/18 1246 Lorazepam 2 Mg Tablet, 2 MG PO HS Prescribed by: GEORGE SUNSHINE on 10/22/18 1257 Omeprazole 40 Mg Capsule.dr, 40 MG PO DAILY Prescribed by: MARTHA MADDEN on 10/23/18 1000 Ondansetron 4 Mg Tab.rapdis, 4 MG PO Q6H Prescribed by: MARHTA MADDEN on 10/23/18 1000 Prednisone 1 Mg Tab, 6 MG PO DAILY Prescribed by: GEORGE SUNSHINE on 10/22/18 1259 Tramadol HCl 50 Mg Tablet, 50 MG PO Q6H Prescribed by: GEORGE SUNSHINE on 10/22/18 1256 Tramadol HCl 50 Mg Tablet, 50 MG PO Q6H PRN for PAIN-MODERATE (5-7) Prescribed by: HOLGER DICKINSON on 03/22/21 1317 Patient Home Medication List Home Medication List Reviewed: Yes (HOLGER DICKINSON APRN) Review of Systems Constitutional: see HPI EENTM: see HPI Respiratory: no symptoms reported Cardiovascular: no symptoms reported Genitourinary: no symptoms reported Musculoskeletal: see HPI Skin: no symptoms reported Psychiatric/Neurological: No Symptoms Reported (HOLGER DICKINSON APRN) Past Tmkmzkz-Bgsxol-Gabftr Hx Patient Social History Alcohol Use: Occasionally Uses Smoking Status: Former Smoker Type Used: Cigarettes Former Smoker, Quit: Dec 19, 2017 2nd Hand Smoke Exposure: No Recent Infectious Disease Expo: No Recent Hopitalizations: Yes (HOLGER DICKINSON APRN) Immunizations Up To Date Tetanus Booster (TDap): More than 5yrs Date of Pneumonia Vaccine: Sep 16, 2018 Date of Influenza Vaccine: Sep 16, 2018 (HOLGER DICKINSON APRN) Seasonal Allergies Seasonal Allergies: No (HOLGER DICKINSON APRN) Past Medical History Surgeries: Yes (PERITONEAL DIALYSIS;L 5TH TOE AMPUTATED 03/2020) Abdominal, Amputation, Cardiac, Coronary Stent, Dialysis, Tonsillectomy, Tracheostomy, Valve Replacement, Vascular Surgery Respiratory: Yes Cardiac: Yes Atrial Fibrillation, Endocarditis, Heart Murmur, Hypertension Neurological: Yes Traumatic Brain Injury Genitourinary: Yes (PEROTONEAL DIALYSIS ) Renal Failure, Dialysis Gastrointestinal: Yes (S/P PEG TUBE AND REMOVAL;CHRONIC NAUSEA/VOMITING) Gastroesophageal Reflux, Gastrointestinal Bleed Musculoskeletal: Yes (RLE BRACE; IMPAIRED AMBULATION SECONDARY TO ALL OF THE ABOVE;L 5TH TOE AMPU) Amputee, Foot Drop Endocrine: Yes Diabetes, Non-Insulin dep HEENT: Yes (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) Cancer: No Psychosocial: Yes Depression Integumentary: Yes (SACRAL PRESSURE ULCER) (HOLGER DICKINSON APRN) Family Medical History Alzheimer's disease 19 MOTHER, Onset:60 years & older Diabetes mellitus 19 FATHER, Onset:Unknown No Pertinent Family Hx, Hypertension PSH: - (HOLGER DICKINSON APRN) Physical Exam Vital Signs Vital Signs - First Documented 03/22/21 03/22/21 11:28 13:19 Temp 36.6 Pulse 97 Resp 16 B/P (MAP) 119/68 (85) Pulse Ox 97 O2 Delivery Room Air (BJ ESTRADA MD) Vital Signs Capillary Refill : Less Than 3 Seconds (HOLGER DICKINSON APRN) Height, Weight, BMI Height: 5'11.00" Weight: 169lbs. 11.2oz. 76.582468gm; 29.00 BMI Method:Stated General Appearance: WD/WN, no apparent distress HEENT: PERRL/EOMI, normal ENT inspection Neck: non-tender Respiratory: no respiratory distress, no accessory muscle use Shoulder: normal inspection, limited ROM (tender to palpation over the AC joint. Normal appearance. Normal radial pulse. limited ROM), pain Elbow/Forearm: normal inspection, non-tender Wrist: Yes normal inspection, Yes non-tender Hand: normal inspection, non-tender Neurologic/Psychiatric: alert, normal mood/affect, oriented x 3 Skin: normal color, warm/dry (HOLGER DICKINSON APRN) Procedures/Interventions IV : Location: Right Site: Forearm IV Catheter Type: Peripheral IV IV Catheter Gauge: 22 (HOLGER DICKINSON APRN) Progress/Results/Core Measures Results/Orders Blood Pressure Mean: 85 Progress Progress Note : Progress Note I was physically present in the emergency department as attending physician during the care of this patient, but I was not directly involved in this patient's care. (BJ ESTRADA MD) Diagnostic Imaging Diagonstic Imaging: Xray Comments NAME: DARIO FRANKS [facility] REC#: [id number] PT STATUS: REG ER : 1960 PHYSICIAN: HOLGER DICKINSON APRN ADMIT DATE: 03/22/21/ER Draft Date of Exam:03/22/21 CT CHEST W PROCEDURE: CT chest with contrast only. TECHNIQUE: Multiple contiguous axial images were obtained through the chest after administration of intravenous contrast. Auto Exposure Controls were utilized during the CT exam to meet ALARA standards for radiation dose reduction. INDICATION: 60-year-old male, right scapula fracture. CORRELATION STUDY: 10/21/2018 FINDINGS: There is a significant amount of high density vascular contrast of the right upper extremity in and around the right shoulder girdle and chest wall. This does limit assessment for potential abnormal vascular extravasation. However, definitive abnormal vascular blush does not appear to be present to suggest large active bleed. There is the presence of a minimally displaced fracture involving the scapular body and spine. Alignment is near-anatomic. Advanced degenerative changes of the right glenohumeral joint which includes joint space narrowing. Some subcortical cystic change. Slight flattening of the humeral head is present, may be more chronic in nature. There is prominent edema, likely hematoma in and around the right shoulder girdle. Increased density in the retroareolar region compatible with gynecomastia. Prior sternotomy changes. Heart size enlarged. Thoracic aortic contour unremarkable. No mediastinal hematoma. Lung cesar with mildly advanced emphysematous changes. No evidence for contusion or pneumothorax. There may be trace pleural effusions. Circumferential wall thickening of the gastroesophageal junction. No definitive evidence for an acute displaced rib fracture. Upper abdominal ascites is present, suspect for underlying chronic liver disease. Spleen appears to be enlarged. IMPRESSION: 1. Relatively nondisplaced right scapular body and spine fracture. Associated hematoma/edema in and around the shoulder girdle. 2. There is a fair amount of venous vascular contamination in and around the fracture. This does limit assessment for potential vascular injury, however no definitive large vascular bleed suggested. 3. Findings do suggest chronic liver disease with upper abdominal ascites and splenic enlargement. Dictated on workstation # [id number] Dict: 03/22/21 1249 Trans: 03/22/21 1304 [facility] [id number] Interpreted by: MERRITT HEREDIA DO Electronically signed by: (HOLGER DICKINSON APRN) Departure Communication (Admissions) 1214-I offered pain medicaiton but he declines. Given the scapular fracture on plain films he'll need CT chest to eval for other injuries 1312-NAME: DARIO FRANKS J [facility] REC#: [id number] PT STATUS: REG ER : 1960 PHYSICIAN: HOLGER DICKINSON APRN ADMIT DATE: 03/22/21/ER Draft Date of Exam:03/22/21 CT CHEST W PROCEDURE: CT chest with contrast only. TECHNIQUE: Multiple contiguous axial images were obtained through the chest after administration of intravenous contrast. Auto Exposure Controls were utilized during the CT exam to meet ALARA standards for radiation dose reduction. INDICATION: 60-year-old male, right scapula fracture. CORRELATION STUDY: 10/21/2018 FINDINGS: There is a significant amount of high density vascular contrast of the right upper extremity in and around the right shoulder girdle and chest wall. This does limit assessment for potential abnormal vascular extravasation. However, definitive abnormal vascular blush does not appear to be present to suggest large active bleed. There is the presence of a minimally displaced fracture involving the scapular body and spine. Alignment is near-anatomic. Advanced degenerative changes of the right glenohumeral joint which includes joint space narrowing. Some subcortical cystic change. Slight flattening of the humeral head is present, may be more chronic in nature. There is prominent edema, likely hematoma in and around the right shoulder girdle. Increased density in the retroareolar region compatible with gynecomastia. Prior sternotomy changes. Heart size enlarged. Thoracic aortic contour unremarkable. No mediastinal hematoma. Lung cesar with mildly advanced emphysematous changes. No evidence for contusion or pneumothorax. There may be trace pleural effusions. Circumferential wall thickening of the gastroesophageal junction. No definitive evidence for an acute displaced rib fracture. Upper abdominal ascites is present, suspect for underlying chronic liver disease. Spleen appears to be enlarged. IMPRESSION: 1. Relatively nondisplaced right scapular body and spine fracture. Associated hematoma/edema in and around the shoulder girdle. 2. There is a fair amount of venous vascular contamination in and around the fracture. This does limit assessment for potential vascular injury, however no definitive large vascular bleed suggested. 3. Findings do suggest chronic liver disease with upper abdominal ascites and splenic enlargement. Dictated on workstation # [id number] Dict: 03/22/21 1249 Trans: 03/22/21 1304 [facility] [id number] Interpreted by: MERRITT HEREDIA DO Electronically signed by: (HOLGER DICKINSON APRN) Impression Primary Impression: Acromioclavicular sprain Additional Impression: Scapula fracture Disposition: 01 HOME, SELF-CARE Condition: Stable Departure-Patient Inst. Decision time for Depature: 12:08 (HOLGER DICKINSON APRN) Referrals: KATHLEEN THOMPSON MD, WILLIAM J DO (PCP/Family) Primary Care Physician DARIO BANERJEE MD Patient Instructions: Shoulder Blade Fracture (DC), Using Cold for Pain Add. Discharge Instructions: 1.Ice pack to the shoulder for an hour at a time a few times a day. Follow up with orthopedics this week. Call tomorrow for an appointment. Return to ER for any worsening. Pain medication as directed. Scripts Tramadol HCl (Ultram) 50 Mg Tablet 50 MG PO Q6H PRN for PAIN-MODERATE (5-7), #20 TAB Prov: HOLGER DICKINSON APRN 03/22/21 HOLGER DICKINSON APRN Mar 22, 2021 12:08 BJ ESTRADA MD Mar 23, 2021 09:56
--- NOTE | 2021-03-22 12:15 | Diagnostic Imaging Report ---
INDICATION: Pain after fall COMPARISON: Radiograph of the chest dated 04/18/2020. TECHNIQUE: 3 radiographs of the right shoulder 03/22/2021. FINDINGS: Postsurgical changes of a median sternotomy and prosthetic cardiac valve are noted. Concavity within the superior lateral aspect of the humeral head is present, though this appears to have likely been present on prior imaging. Mild degenerative changes of the acromioclavicular joint. Mild degenerative changes of the glenohumeral joint. Discontinuity of the scapular spine is present. Subacromial space is well-maintained. IMPRESSION: Fracturing of the scapular spine is suggested. Dedicated radiographs of the scapula versus CT imaging of the scapula/shoulder is recommended for further evaluation. Hill-Sachs deformity involving the humeral head. This appears to have likely been present on prior imaging suggesting that this is chronic in nature. Additional postsurgical and degenerative changes as above. Dictated by: Dictated on workstation # [id number]
[2021-03-22] MEDS ORDERED: IOHEXOL 350 MG/ML 100 ML (OMNIPAQUE 350) VIAL IV ONE (12:45)
[2021-03-22] MEDS ORDERED: HOLD METFORMIN - RECEIVED CONTRAST 20 ML VIAL IV SCH (12:45)
[2021-03-22] MEDS ORDERED: NS 100 ML (IVPB) BAG IV ONE (12:45)
[2021-03-22] MEDS ORDERED: CATHETER FLUSH 10 ML SYR IV PRN (12:45)
--- NOTE | 2021-03-22 13:05 | Diagnostic Imaging Report ---
PROCEDURE: CT chest with contrast only. TECHNIQUE: Multiple contiguous axial images were obtained through the chest after administration of intravenous contrast. Auto Exposure Controls were utilized during the CT exam to meet ALARA standards for radiation dose reduction. INDICATION: 60-year-old male, right scapula fracture. CORRELATION STUDY: 10/21/2018 FINDINGS: There is a significant amount of high density vascular contrast of the right upper extremity in and around the right shoulder girdle and chest wall. This does limit assessment for potential abnormal vascular extravasation. However, definitive abnormal vascular blush does not appear to be present to suggest large active bleed. There is the presence of a minimally displaced fracture involving the scapular body and spine. Alignment is near-anatomic. Advanced degenerative changes of the right glenohumeral joint which includes joint space narrowing. Some subcortical cystic change. Slight flattening of the humeral head is present, may be more chronic in nature. There is prominent edema, likely hematoma in and around the right shoulder girdle. Increased density in the retroareolar region compatible with gynecomastia. Prior sternotomy changes. Heart size enlarged. Thoracic aortic contour unremarkable. No mediastinal hematoma. Lung cesar with mildly advanced emphysematous changes. No evidence for contusion or pneumothorax. There may be trace pleural effusions. Circumferential wall thickening of the gastroesophageal junction. No definitive evidence for an acute displaced rib fracture. Upper abdominal ascites is present, suspect for underlying chronic liver disease. Spleen appears to be enlarged. IMPRESSION: 1. Relatively nondisplaced right scapular body and spine fracture. Associated hematoma/edema in and around the shoulder girdle. 2. There is a fair amount of venous vascular contamination in and around the fracture. This does limit assessment for potential vascular injury, however no definitive large vascular bleed suggested. 3. Findings do suggest chronic liver disease with upper abdominal ascites and splenic enlargement. Dictated by: Dictated on workstation # [id number]
[2021-03-22] MEDS ORDERED: TRAM-42 PO (13:17)
[2021-03-22 13:19] VITALS: BP 144/71
== END 2021-03-22 13:19 | disposition home or self-care (01) ==
LOC: EDUNIT# 11:17 → ER 11:23
DX: S42.101A Fracture of unspecified part of scapula, right shoulder, initial encounter for closed fracture (principal); K21.9 Gastro-esophageal reflux disease without esophagitis; E11.9 Type 2 diabetes mellitus without complications; F32.9 Major depressive disorder, single episode, unspecified; I10 Essential (primary) hypertension; Z87.891 Personal history of nicotine dependence; Z87.820 Personal history of traumatic brain injury; Z79.52 Long term (current) use of systemic steroids; Z79.899 Other long term (current) drug therapy; W18.30XA Fall on same level, unspecified, initial encounter
CPT/HCPCS: 71260; 73030

== ENCOUNTER → 2021-03-24 | Outpatient (CLI) | payer MEDICARE, OTHER ==
[~2021-03-24] MED LIST changes: +TRAM-42 PO
--- NOTE | 2021-03-24 09:56 | Diagnostic Imaging Report ---
INDICATION: ASCITES TECHNIQUE: Multiple real-time patterson scale sonographic images of the abdomen. CORRELATION STUDY: None FINDINGS: LIVER: Liver is enlarged at 20.5 cm. There is normal, hepatopedal direction of flow within the main portal vein, but is with some pulsatility. GALLBLADDER: Borderline gallbladder wall thickening at 0.3 cm. No shadowing gallstone. COMMON BILE DUCT: Nondilated at 0.5 cm. PANCREAS: Limited in visualization. The visualized portions appearing unremarkable. SPLEEN: Enlarged at 19.5 x 10.8 x 8.9 cm ABDOMINAL AORTA: Unremarkable. INFERIOR VENA CAVA: Limited in visualization. RIGHT KIDNEY: 10.9 x 5.1 x 4.5 cm. Unremarkable. LEFT KIDNEY: 9.7 x 5.4 x 4.8 cm. Unremarkable. OTHER: There is rather large volume ascites throughout the abdomen. IMPRESSION: 1. Hepatomegaly. 2. Findings of portosystemic hypertension. There is pulsatility within the main portal vein. There is presence of rather prominent splenomegaly as well as significant volume ascites. Dictated by: Dictated on workstation # [id number]
== END ==
LOC: RAD 08:21
PROVIDERS: ATTEND Internal Medicine
DX: R18.8 Other ascites (principal); R16.2 Hepatomegaly with splenomegaly, not elsewhere classified; K76.6 Portal hypertension; E11.42 Type 2 diabetes mellitus with diabetic polyneuropathy; L72.3 Sebaceous cyst
CPT/HCPCS: 76700

== ENCOUNTER → 2021-03-27 | Outpatient (CLI) | payer MEDICARE, OTHER ==
[~2021-03-27] VITALS: Ht 180.3 cm; Wt 95.5 kg
[~2021-03-27] MED LIST changes: +ALBUMIN 25% 25 GM/100 ML 100 ML IV ONE
[2021-03-27 13:24] VITALS: BP 122/68
[2021-03-27 14:54] LABS: GLUCOSE,BODY FLUID 117 MG/DL; LDH,BODY FLUID 109 U/L; TOTAL PROTEIN,BODY FLUID 3.9 G/DL
[2021-03-27 14:55] LABS: AMYLASE,BODY FLUID 33 U/L
[2021-03-27 15:53] LABS: BODY FLUID APPEARENCE SLT CLDY; BODY FLUID COLOR YELLOW; BODY FLUID SOURCE PERITON; BODY FLUID WBC TOTAL COUNT 166.25 /uL
[2021-03-27 15:54] LABS: BODY FLUID RBC COUNT 35 /uL
[2021-03-27 16:51] LABS: BF OTHER CELLS 81 %; LYMPHOCYTES,BODY FLUID 7 %
--- NOTE | 2021-03-29 00:31 | OPERATIVE REPORT ---
DATE OF SERVICE: 03/27/2021 PREOPERATIVE DIAGNOSIS: Symptomatic ascites. POSTOPERATIVE DIAGNOSIS: Symptomatic ascites. PROCEDURE: Ultrasound-guided paracentesis. SURGEON: Zac Sutton D.O. ANESTHESIA: 1% lidocaine, 4 mL. COMPLICATIONS: None. INDICATIONS: The patient is a 60-year-old male with ascites, asymptomatic. He understands risks and benefits of procedure and wished to proceed with procedure. Consent was signed in the chart. DESCRIPTION OF PROCEDURE: The patient was taken to the radiology procedure suite. He was prepped and draped in sterile fashion. Timeout was performed. Ultrasound was used to isolate the largest pocket. Local anesthetic was infiltrated. A #11 blade scalpel was used to make a small skin incision and the [id number]-N-Uctcqkyi needle and catheter were then advanced through the abdominal wall until straw-colored fluid was withdrawn. The catheter was then inserted, and the needle was removed. A total of 8 liters of ascitic fluid was removed. The catheter was then removed. Sterile bandage was applied. The patient tolerated the procedure well without any complications. Job ID: [id number] DocumentID: [id number] Dictated Date: 03/28/2021 15:44:29 Campus Aide Date: 03/29/2021 00:30:50 Dictated By: ZAC SUTTON DO
== END ==
LOC: RAD 11:44
PROVIDERS: ATTEND Surgery
DX: R18.8 Other ascites (principal)
CPT/HCPCS: 49083; 82150; 82570; 82945; 83615; 84157; 87070; 87075; 87205; 89051; A7048

== ENCOUNTER → 2021-07-08 | Outpatient (CLI) | payer MEDICARE, OTHER ==
[~2021-07-08] VITALS: Ht 180.3 cm; Wt 91.0 kg
[~2021-07-08] MED LIST changes: -OMEP40CA27 PO; +OMEP40CA6 PO
--- NOTE | 2021-07-08 11:41 | Progress Note-Post Operative ---
Post-Operative Progess Note Surgeon (s)/Barrel Endshaker Adjuster (s) Surgeon ZAC ANDREW DO Barrel Endshaker Adjuster: na Pre-Operative Diagnosis symptomatic ascites Post-Operative Diagnosis same Procedure & Operative Findings Date of Procedure 07/08/21 Procedure Performed/Findings U/s guided paracentesis. DESCRIPTION OF PROCEDURE: The patient was taken to the procedure room in Radiology. The patient had an ultrasound used to isolate the largest window for the paracentesis, a Weck-V-Biffjjpd catheter to be placed. Once this was located, the area was prepped and draped in a sterile fashion. Timeout was performed. Local anesthetic was infiltrated and an 11 blade scalpel was used to make a small skin incision. The Nqov-D-Ejapalus needle and catheter were then advanced through the abdominal wall until straw-colored fluid was withdrawn. The catheter was inserted and the needle was removed. 8500 mL of straw-colored fluid was withdrawn. Once removed, the catheter was then removed and a sterile bandage was applied. The patient tolerated the procedure well without any complications. She was taken to the recovery room in stable condition. Anesthesia Type 1 percent lidocaine 4 mL. Estimated Blood Loss Estimated blood loss (mL): none Specimens/Packing Specimens Removed ascites ZAC ANDREW DO Jul 08, 2021 11:41
[2021-07-08 12:46] VITALS: BP 110/75
[2021-07-08 14:02] LABS: BODY FLUID APPEARENCE SLT CLDY; BODY FLUID COLOR YELLOW; BODY FLUID RBC COUNT 100 /uL; BODY FLUID SOURCE PERITONEAL; BODY FLUID WBC TOTAL COUNT 230 /uL
[2021-07-08 14:03] LABS: GLUCOSE,BODY FLUID 97 MG/DL
[2021-07-08 14:04] LABS: AMYLASE,BODY FLUID 34 U/L
[2021-07-08 14:09] LABS: LDH,BODY FLUID 127 U/L
[2021-07-08 14:16] LABS: LYMPHOCYTES,BODY FLUID 17 %
[2021-07-08 14:17] LABS: BF OTHER CELLS 69 %
--- NOTE | 2021-07-09 10:29 | Diagnostic Imaging Report ---
INDICATION: Ascites Limited views are obtained of the left lower quadrant demonstrating a moderate to large amount of ascites. Dr. Sutton performed paracentesis, see his dictation for further details. IMPRESSION: Ultrasound image demonstrated a large amount of ascites in the left lower quadrant. Dictated by: Dictated on workstation # [id number]
== END ==
LOC: RAD 11:00
PROVIDERS: ATTEND Surgery
DX: R18.8 Other ascites (principal)
CPT/HCPCS: 49083; 82150; 82570; 82945; 83615; 84157; 89051; A7048

== ENCOUNTER 2021-08-18 11:27 | Emergency (ER) | payer MEDICARE, OTHER ==
[~2021-08-18] VITALS: Ht 180 cm; Wt 91.0 kg
[~2021-08-18 11:27] MED LIST changes: -ALBUMIN 25% 25 GM/100 ML 100 ML IV ONE; +SCOP1PAT10 TOP; -SCOP1PAT11 TOP
--- NOTE | 2021-08-18 11:43 | ED General ---
General Stated Complaint: RLQ PAIN Source of Information: Patient Exam Limitations: No Limitations History of Present Illness Date Seen by Provider: Aug 18, 2021 Time Seen by Provider: 11:41 Initial Comments To ER with right lower abdominal pain though he also has left-sided abdominal pain. He has a history of ascites with need for recurrent paracentesis most recently on July 31 by a specialist in [facility]. He had 1 day of fever up to 100 degrees a few days ago but nothing since then. Denies any urinary symptoms. History of fatty liver as well as end-stage renal disease on hemodialysis. His last hemodialysis was this morning. During his last paracentesis they removed 8 L he states. Timing/Duration: 1-2 Days Severity: Moderate Associated Systoms: No Nausea/Vomiting Allergies and Home Medications Allergies Coded Allergies: No Known Drug Allergies (Unverified , 12/12/15) Patient Home Medication List Home Medication List Reviewed: Yes Bupropion HCl (Bupropion HCl) 100 Mg Tablet, 150 MG PO BID Prescribed by: GEORGE SUNSHINE on 10/22/18 1245 Carvedilol (Carvedilol) 12.5 Mg Tablet, 12.5 MG PO BID Prescribed by: GEORGE SUNSHINE on 10/22/18 1245 Cefdinir (Cefdinir) 300 Mg Capsule, 300 MG PO Q48H Prescribed by: MARTHA MADDEN on 10/23/18 1000 Famotidine (Pepcid) 20 Mg Tablet, 20 MG PO BID Prescribed by: GEORGE SUNSHINE on 10/22/18 1246 Lorazepam (Ativan) 2 Mg Tablet, 2 MG PO HS Prescribed by: GEORGE SUNSHINE on 10/22/18 1257 Omeprazole (Omeprazole) 40 Mg Capsule.dr, 40 MG PO DAILY Prescribed by: MARTHA MADDEN on 10/23/18 1000 Ondansetron (Ondansetron Odt) 4 Mg Tab.rapdis, 4 MG PO Q6H Prescribed by: MARTHA MADDEN on 10/23/18 1000 Prednisone (Prednisone) 1 Mg Tab, 6 MG PO DAILY Prescribed by: GEORGE SUNSHINE on 10/22/18 1259 Tramadol HCl (Tramadol HCl) 50 Mg Tablet, 50 MG PO Q6H Prescribed by: GEORGE SUNSHINE on 10/22/18 1256 Tramadol HCl (Ultram) 50 Mg Tablet, 50 MG PO Q6H PRN for PAIN-MODERATE (5-7) Prescribed by: HOLGER DICKINSON on 03/22/21 8037 Review of Systems Review of Systems Constitutional: see HPI EENTM: see HPI Respiratory: no symptoms reported Cardiovascular: no symptoms reported Gastrointestinal: abdominal pain Genitourinary: no symptoms reported Musculoskeletal: no symptoms reported Skin: no symptoms reported Psychiatric/Neurological: No Symptoms Reported Hematologic/Lymphatic: No Symptoms Reported Immunological/Allergic: no symptoms reported Past Cazweur-Fzqymg-Xiqduy Hx Immunizations Up To Date Tetanus Booster (TDap): More than 5yrs Seasonal Allergies Seasonal Allergies: No Past Medical History Surgeries: Yes (PERITONEAL DIALYSIS;L 5TH TOE AMPUTATED 03/2020) Abdominal, Amputation, Cardiac, Coronary Stent, Dialysis, Tonsillectomy, Tra cheostomy, Valve Replacement, Vascular Surgery Respiratory: Yes Cardiac: Yes Atrial Fibrillation, Endocarditis, Heart Murmur, Hypertension Neurological: Yes Traumatic Brain Injury Genitourinary: Yes (PEROTONEAL DIALYSIS ) Renal Failure, Dialysis Gastrointestinal: Yes (S/P PEG TUBE AND REMOVAL;CHRONIC NAUSEA/VOMITING) Gastroesophageal Reflux, Gastrointestinal Bleed Musculoskeletal: Yes (RLE BRACE; IMPAIRED AMBULATION SECONDARY TO ALL OF THE ABOVE;L 5TH TOE AMPU) Amputee, Foot Drop Endocrine: Yes Diabetes, Non-Insulin dep HEENT: Yes (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 11.2oz. 76.675585ic; 27.99 BMI Method:Stated General Appearance: No Apparent Distress, WD/WN, Chronically ill (Appears much older than stated age) Eyes: Bilateral Eye Normal Inspection, Bilateral Eye PERRL, Bilateral Eye EOMI Neck: Full Range of Motion, Normal Inspection Respiratory: No Accessory Muscle Use, No Respiratory Distress Cardiovascular: Regular Rate, Rhythm, Normal Peripheral Pulses Gastrointestinal: Non Tender, Soft Extremity: Normal Capillary Refill, Normal Inspection Neurologic/Psychiatric: Alert, Oriented x3 Skin: Normal Color, Warm/Dry Progress/Results/Core Measures Suspected Sepsis SIRS Temperature: Pulse: Respiratory Rate: Laboratory Tests 08/18/21 12:02: White Blood Count 7.6 Blood Pressure / Mean: Laboratory Tests 08/18/21 12:02: Creatinine 4.26H, INR Comment 1.3, Platelet Count 157, Total Bilirubin 1.6H Results/Orders Lab Results Laboratory Tests Test 08/18/21 12:02 Range/Units White Blood Count 7.6 4.3-11.0 10^3/uL Red Blood Count 3.07 L 4.30-5.52 10^6/uL Hemoglobin 10.2 L 13.3-17.7 g/dL Hematocrit 30 L 40-54 % Mean Corpuscular Volume 98 80-99 fL Mean Corpuscular Hemoglobin 33 25-34 pg Mean Corpuscular Hemoglobin Concent 34 32-36 g/dL Red Cell Distribution Width 13.6 10.0-14.5 % Platelet Count 157 130-400 10^3/uL Mean Platelet Volume 10.3 9.0-12.2 fL Immature Granulocyte % (Auto) 1 % Neutrophils (%) (Auto) 83 H 42-75 % Lymphocytes (%) (Auto) 4 L 12-44 % Monocytes (%) (Auto) 9 0-12 % Eosinophils (%) (Auto) 2 0-10 % Basophils (%) (Auto) 0 0-10 % Neutrophils # (Auto) 6.3 1.8-7.8 10^3/uL Lymphocytes # (Auto) 0.3 L 1.0-4.0 10^3/uL Monocytes # (Auto) 0.7 0.0-1.0 10^3/uL Eosinophils # (Auto) 0.2 0.0-0.3 10^3/uL Basophils # (Auto) 0.0 0.0-0.1 10^3/uL Immature Granulocyte # (Auto) 0.1 0.0-0.1 10^3/uL Neutrophils % (Manual) 92 % Lymphocytes % (Manual) 1 % Monocytes % (Manual) 5 % Eosinophils % (Manual) 2 % Blood Morphology Comment NORMAL Prothrombin Time 16.4 H 12.2-14.7 SEC INR Comment 1.3 0.8-1.4 Sodium Level 137 135-145 MMOL/L Potassium Level 3.8 3.6-5.0 MMOL/L Chloride Level 95 L 98-107 MMOL/L Carbon Dioxide Level 27 21-32 MMOL/L Anion Gap 15 H 5-14 MMOL/L Blood Urea Nitrogen 27 H 7-18 MG/DL Creatinine 4.26 H 0.60-1.30 MG/DL Estimat Glomerular Filtration Rate 14 BUN/Creatinine Ratio 6 Glucose Level 108 H 70-105 MG/DL Calcium Level 8.7 8.5-10.1 MG/DL Corrected Calcium 9.6 8.5-10.1 MG/DL Total Bilirubin 1.6 H 0.1-1.0 MG/DL Aspartate Amino Transf (AST/SGOT) 21 5-34 U/L Alanine Aminotransferase (ALT/SGPT) 9 0-55 U/L Alkaline Phosphatase 173 H 40-136 U/L Ammonia 16 11-32 UMOL/L Total Protein 5.9 L 6.4-8.2 GM/DL Albumin 2.9 L 3.2-4.5 GM/DL Lipase 23 8-78 U/L My Orders Orders - HOLGER DICKINSON APRN Cbc With Automated Diff (08/18/21 11:39) Comprehensive Metabolic Panel (08/18/21 11:39) Lipase (08/18/21 11:39) Ua Culture If Indicated (08/18/21 11:39) Ct Abdomen/Pelvis Wo (08/18/21 11:39) Protime With Inr (08/18/21 11:43) Ammonia (08/18/21 11:50) Manual Differential (08/18/21 12:02) Albumin 25% 25 Gm/100 Ml (Albumin 25% 25 (08/18/21 13:00) Medications Given in ED Current Medications Medications Dose Ordered Sig/Anup Route Start Time Stop Time Status Last Admin Dose Admin Albumin Human 50 ml @ 50 mls/hr ONCE ONCE IV 08/18/21 13:00 08/18/21 13:59 DC 08/18/21 13:22 50 MLS/HR Vital Signs/I&O 08/18/21 08/18/21 11:36 11:53 Temp 35.9 Pulse 90 94 Resp 18 16 B/P (MAP) 100/69 (79) 108/66 Pulse Ox 100 97 O2 Delivery Room Air Capillary Refill : Diagnostic Imaging Diagonstic Imaging: CT Comments NAME: DARIO FRANKS [facility] REC#: [id number] PT STATUS: REG ER : 1960 PHYSICIAN: HOLGER DICKINSON ACQUISITION ASSOCIATE ADMIT DATE: 08/18/21/ER Draft Date of Exam:08/18/21 CT ABDOMEN/PELVIS WO PROCEDURE: CT abdomen and pelvis without contrast. TECHNIQUE: Multiple contiguous axial images were obtained through the abdomen and pelvis without the use of intravenous contrast. Auto Exposure Controls were utilized during the CT exam to meet ALARA standards for radiation dose reduction. INDICATION: Upper abdominal pain. History of recurrent ascites. COMPARISON: 10/21/2018. FINDINGS: Included portions of the lung bases show punctate micronodule within the posteromedial subpleural margins of the right lower lobe. It measures 4 mm in diameter (image 4, series 2). This is stable compared to 10/21/2018. CT ABDOMEN: Large amount of ascites is seen scattered throughout the abdomen and pelvis. There is no loculated fluid collection or free air. Normal appendix is identified. Small bowel loops are nondistended. There is subtle micronodular appearance to the external contour of the liver suggestive of underlying cirrhosis. Evaluation for hepatic mass is suboptimal on this noncontrast exam. No large hypodense lesions are seen. Spleen is enlarged. It measures 13.5 x 6 x 16 cm. No focal splenic lesion is seen. The kidneys, adrenal glands, and pancreas have an unremarkable noncontrast CT appearance. No abnormal mesenteric or retroperitoneal adenopathy is seen. There is moderate diffuse calcified aortic and arterial atherosclerosis. Osseous structures show no acute abnormalities. CT PELVIS: Umbilical hernia is noted and contains ascites. There is moderate ascites within the remainder of the pelvis. There is no loculated fluid collection or free air. Urinary bladder is unopacified. No calculi are seen within the urinary bladder. No abnormal pelvic adenopathy is seen. Osseous structures show no acute abnormalities. IMPRESSION: 1. Massive amount of abdominopelvic ascites. 2. Probable cirrhosis to the liver. 3. Splenomegaly, which may be on the basis of underlying portal venous hypertension. 4. Small micronodule within the right lower lobe. Again, this is stable compared to 10/21/2018. Dictated on workstation # [id number] Dict: 08/18/21 1215 Trans: 08/18/21 1226 [id number] Interpreted by: SARAH CORRIGAN MD Electronically signed by: Departure Communication (Admissions) 2526-Dr. Stuton has been here to do a paracentesis. We have now removed 4.5 L o f clear yellow ascites fluid with more being drained via gravity into the gravity bag. He has resolution of his abdominal pain now. Vitals are stable. He is receiving albumin. 1410-total volume of ascites removed 6.5 L. No hemodynamic changes. He rece ived 12.5 g of albumin IV, used a cable splicer helper dose given his propensity for fluid overload secondary to oliguric renal failure on hemodialysis. Impression Primary Impression: Ascites Additional Impressions: Cirrhosis of liver with ascites ESRD (end stage renal disease) on dialysis Disposition: ADMITTED INPATIENT Condition: Stable Departure-Patient Inst. Decision time for Depature: 14:11 Referrals: KEILA TUCKER DO (PCP/Family) Primary Care Physician Patient Instructions: End Stage Kidney Disease (DC), Cirrhosis (DC) Add. Discharge Instructions: 1. Return to ER for any concerns. Follow-up with Dr. Mustafa. HOLGER DICKINSON APRN Aug 18, 2021 11:42
[2021-08-18 11:53] VITALS: BP 108/66
[2021-08-18 12:09] LABS: BASOPHILS % (AUTO) 0 % (0-10); EOSINOPHILS # (AUTO) 0.2 10^3/uL (0.0-0.3); EOSINOPHILS % (AUTO) 2 % (0-10); HEMATOCRIT 30 % (40-54); HEMOGLOBIN 10.2 g/dL (13.3-17.7); LYMPHOCYTES # (AUTO) 0.3 10^3/uL (1.0-4.0); LYMPHOCYTES % (AUTO) 4 % (12-44); MEAN CORPUSCULAR HEMOGLOBIN 33 pg (25-34); MEAN CORPUSCULAR HGB CONC 34 g/dL (32-36); MEAN CORPUSCULAR VOLUME 98 fL (80-99); MEAN PLATELET VOLUME 10.3 fL (9.0-12.2); MONOCYTES # (AUTO) 0.7 10^3/uL (0.0-1.0); MONOCYTES % (AUTO) 9 % (0-12); NEUTROPHILS # (AUTO) 6.3 10^3/uL (1.8-7.8); NEUTROPHILS % (AUTO) 83 % (42-75); PLATELET COUNT 157 10^3/uL (130-400); WHITE BLOOD COUNT 7.6 10^3/uL (4.3-11.0)
[2021-08-18 12:25] LABS: INR 1.3 (0.8-1.4); PROTHROMBIN TIME PATIENT 16.4 SEC (12.2-14.7)
--- NOTE | 2021-08-18 12:26 | Diagnostic Imaging Report ---
PROCEDURE: CT abdomen and pelvis without contrast. TECHNIQUE: Multiple contiguous axial images were obtained through the abdomen and pelvis without the use of intravenous contrast. Auto Exposure Controls were utilized during the CT exam to meet ALARA standards for radiation dose reduction. INDICATION: Upper abdominal pain. History of recurrent ascites. COMPARISON: 10/21/2018. FINDINGS: Included portions of the lung bases show punctate micronodule within the posteromedial subpleural margins of the right lower lobe. It measures 4 mm in diameter (image 4, series 2). This is stable compared to 10/21/2018. CT ABDOMEN: Large amount of ascites is seen scattered throughout the abdomen and pelvis. There is no loculated fluid collection or free air. Normal appendix is identified. Small bowel loops are nondistended. There is subtle micronodular appearance to the external contour of the liver suggestive of underlying cirrhosis. Evaluation for hepatic mass is suboptimal on this noncontrast exam. No large hypodense lesions are seen. Spleen is enlarged. It measures 13.5 x 6 x 16 cm. No focal splenic lesion is seen. The kidneys, adrenal glands, and pancreas have an unremarkable noncontrast CT appearance. No abnormal mesenteric or retroperitoneal adenopathy is seen. There is moderate diffuse calcified aortic and arterial atherosclerosis. Osseous structures show no acute abnormalities. CT PELVIS: Umbilical hernia is noted and contains ascites. There is moderate ascites within the remainder of the pelvis. There is no loculated fluid collection or free air. Urinary bladder is unopacified. No calculi are seen within the urinary bladder. No abnormal pelvic adenopathy is seen. Osseous structures show no acute abnormalities. IMPRESSION: 1. Massive amount of abdominopelvic ascites. 2. Probable cirrhosis to the liver. 3. Splenomegaly, which may be on the basis of underlying portal venous hypertension. 4. Small micronodule within the right lower lobe. Again, this is stable compared to 10/21/2018. Dictated by: Dictated on workstation # [id number]
[2021-08-18 12:34] LABS: EOSINOPHILS % (MANUAL) 2 %; LYMPHOCYTES % (MANUAL) 1 %; MONOCYTES % (MANUAL) 5 %; NEUTROPHILS % (MANUAL) 92 %; RBC MORPH NORMAL
[2021-08-18 12:36] LABS: ALBUMIN 2.9 GM/DL (3.2-4.5); BILIRUBIN,TOTAL 1.6 MG/DL (0.1-1.0); CALCIUM 8.7 MG/DL (8.5-10.1); CREATININE SERUM 4.26 MG/DL (0.60-1.30); POTASSIUM 3.8 MMOL/L (3.6-5.0); TOTAL PROTEIN 5.9 GM/DL (6.4-8.2)
[2021-08-18] MEDS ORDERED: ALBUMIN 25% 25 GM/100 ML 50 ML IV ONE (13:00)
--- NOTE | 2021-08-18 13:07 | Consultation - Surgery ---
ZULEIKA DANGELO 08/18/21 1307: History of Present Illness History of Present Illness Patient Consulted On(sylvia/time) 08/18/21 13:01 Date Seen by Provider: Aug 18, 2021 Time Seen by Provider: 13:01 Reason for Visit: SOB, abdominal pain, symptomatic ascites History of Present Illness Connor Edmonds is a 60 yo male with a history of recurrent ascites requiring paracentesis, MART, and ESRD requiring hemodialysis who presents for evaluation and management of SOB and diffuse abdominal pain. Connor has been requiring paracentesis approximately every 2-3 weeks, which was most recently completed on . Patient reported diffuse abdominal discomfort, as well as rib pain 2/2 to significant abdominal ascites; this has gradually decreased since removing 4.5 L of fluid. Allergies and Home Medications Allergies Coded Allergies: No Known Drug Allergies (Unverified , 12/12/15) Patient Home Medication List Bupropion HCl (Bupropion HCl) 100 Mg Tablet, 150 MG PO BID Prescribed by: GEORGE SUNSHINE on 10/22/18 1245 Carvedilol (Carvedilol) 12.5 Mg Tablet, 12.5 MG PO BID Prescribed by: GEORGE SUNSHINE on 10/22/18 1245 Cefdinir (Cefdinir) 300 Mg Capsule, 300 MG PO Q48H Prescribed by: MARTHA MADDEN on 10/23/18 1000 Famotidine (Pepcid) 20 Mg Tablet, 20 MG PO BID Prescribed by: GEORGE SUNSHINE on 10/22/18 1246 Lorazepam (Ativan) 2 Mg Tablet, 2 MG PO HS Prescribed by: GEORGE SUNSHINE on 10/22/18 1257 Omeprazole (Omeprazole) 40 Mg Capsule.dr, 40 MG PO DAILY Prescribed by: MARTHA MADDEN on 10/23/18 1000 Ondansetron (Ondansetron Odt) 4 Mg Tab.rapdis, 4 MG PO Q6H Prescribed by: MARTHA MADDEN on 10/23/18 1000 Prednisone (Prednisone) 1 Mg Tab, 6 MG PO DAILY Prescribed by: GEORGE SUNSHINE on 10/22/18 1259 Tramadol HCl (Tramadol HCl) 50 Mg Tablet, 50 MG PO Q6H Prescribed by: GEORGE SUNSHINE on 10/22/18 1256 Tramadol HCl (Ultram) 50 Mg Tablet, 50 MG PO Q6H PRN for PAIN-MODERATE (5-7) Prescribed by: HOLGER CASE on 03/22/21 1317 Past Ozmqxfo-Pjosdn-Kevafb Hx Patient Social History Former Smoker, Quit: Dec 19, 2017 Type Used: Cigarettes 2nd Hand Smoke Exposure: No Recent Hopitalizations: Yes Alcohol Use?: No Have you traveled recently?: No Immunizations Up To Date Tetanus Booster (TDap): More than 5yrs Date of Pneumonia Vaccine: Sep 16, 2018 Date of Influenza Vaccine: Sep 16, 2018 Seasonal Allergies Seasonal Allergies: No Surgeries History of Surgeries: Yes (PERITONEAL DIALYSIS;L 5TH TOE AMPUTATED 03/2020) Surgeries: Abdominal, Amputation, Cardiac, Coronary Stent, Dialysis, Tonsillectomy, Tracheostomy, Valve Replacement, Vascular Surgery Respiratory History of Respiratory Disorde: Yes Cardiovascular History of Cardiac Disorders: Yes Cardiac Disorders: Atrial Fibrillation, Endocarditis, Heart Murmur, Hypertension Neurological History of Neurological Disord: Yes Neurological Disorders: Traumatic Brain Injury Genitourinary History of Genitourinary Disor: Yes (PEROTONEAL DIALYSIS ) Genitourinary Disorders: Renal Failure, Dialysis Gastrointestinal History of Gastrointestinal Di: Yes (S/P PEG TUBE AND REMOVAL;CHRONIC NAUSEA/VOMITING) Gastrointestinal Disorders: Gastroesophageal Reflux, Gastrointestinal Bleed Musculoskeletal History of Musculoskeletal Dis: Yes (RLE BRACE; IMPAIRED AMBULATION SECONDARY TO ALL OF THE ABOVE;L 5TH TOE AMPU) Musculoskeletal Disorders: Amputee, Foot Drop Endocrine History of Endocrine Disorders: Yes Endocrine Disorders: Diabetes, Non-Insulin dep HEENT History of HEENT Disorders: Yes (S/P TRACH AND 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) Cancer History of Cancer: No Psychosocial History of Psychiatric Problem: Yes Behavioral Health Disorders: Depression Integumentary History of Skin or Integumenta: Yes (SACRAL PRESSURE ULCER) Family Medical History Significant Family History: No Pertinent Family Hx, Hypertension Family Medial History: Alzheimer's disease 19 MOTHER, Onset:60 years & older Diabetes mellitus 19 FATHER, Onset:Unknown Review of Systems-General Constitutional: No chills, No diaphoresis Respiratory: short of breath Gastrointestinal: abdominal pain All Other Systems Reviewed Negative Unless Noted: Yes Physical Exam-General Problems Physical Exam Vital Signs Vital Signs - First Documented 08/18/21 08/18/21 11:36 11:53 Temp 35.9 Pulse 90 Resp 18 B/P (MAP) 100/69 (79) Pulse Ox 100 O2 Delivery Room Air Capillary Refill : Less Than 3 Seconds General Appearance: WD/WN, no apparent distress Neck: normal inspection Respiratory: lungs clear, normal breath sounds, no respiratory distress, no accessory muscle use Cardiovascular: regular rate, rhythm Gastrointestinal: abnormal bowel sounds, distended (ascites), tenderness Rectal: deferred Neurologic/Psychiatric: alert, normal mood/affect, oriented x 3 Skin: normal color, warm/dry Data Review Labs Laboratory Tests 08/18/21 12:02: White Blood Count 7.6, Red Blood Count 3.07L, Hemoglobin 10.2L, Hematocrit 30L, Mean Corpuscular Volume 98, Mean Corpuscular Hemoglobin 33, Mean Corpuscular Hemoglobin Concent 34, Red Cell Distribution Width 13.6, Platelet Count 157, Mean Platelet Volume 10.3, Immature Granulocyte % (Auto) 1, Neutrophils (%) (Auto) 83H, Lymphocytes (%) (Auto) 4L, Monocytes (%) (Auto) 9, Eosinophils (%) (Auto) 2, Basophils (%) (Auto) 0, Neutrophils # (Auto) 6.3, Lymphocytes # (Auto) 0.3L, Monocytes # (Auto) 0.7, Eosinophils # (Auto) 0.2, Basophils # (Auto) 0.0, Immature Granulocyte # (Auto) 0.1, Neutrophils % (Manual) 92, Lymphocytes % (Man ual) 1, Monocytes % (Manual) 5, Eosinophils % (Manual) 2, Blood Morphology Comment NORMAL, Prothrombin Time 16.4H, INR Comment 1.3, Sodium Level 137, Potassium Level 3.8, Chloride Level 95L, Carbon Dioxide Level 27, Anion Gap 15H, Blood Urea Nitrogen 27H, Creatinine 4.26H, Estimat Glomerular Filtration Rate 14, BUN/Creatinine Ratio 6, Glucose Level 108H, Calcium Level 8.7, Corrected Calcium 9.6, Total Bilirubin 1.6H, Aspartate Amino Transf (AST/SGOT) 21, Alanine Aminotransferase (ALT/SGPT) 9, Alkaline Phosphatase 173H, Ammonia 16, Total Protein 5.9L, Albumin 2.9L, Lipase 23 Radiology Date of Exam:08/18/21 CT ABDOMEN/PELVIS WO PROCEDURE: CT abdomen and pelvis without contrast. TECHNIQUE: Multiple contiguous axial images were obtained through the abdomen and pelvis without the use of intravenous contrast. Auto Exposure Controls were utilized during the CT exam to meet ALARA standards for radiation dose reduction. INDICATION: Upper abdominal pain. History of recurrent ascites. COMPARISON: 10/21/2018. FINDINGS: Included portions of the lung bases show punctate micronodule within the posteromedial subpleural margins of the right lower lobe. It measures 4 mm in diameter (image 4, series 2). This is stable compared to 10/21/2018. CT ABDOMEN: Large amount of ascites is seen scattered throughout the abdomen and pelvis. There is no loculated fluid collection or free air. Normal appendix is identified. Small bowel loops are nondistended. There is subtle micronodular appearance to the external contour of the liver suggestive of underlying cirrhosis. Evaluation for hepatic mass is suboptimal on this noncontrast exam. No large hypodense lesions are seen. Spleen is enlarged. It measures 13.5 x 6 x 16 cm. No focal splenic lesion is seen. The kidneys, adrenal glands, and pancreas have an unremarkable noncontrast CT appearance. No abnormal mesenteric or retroperitoneal adenopathy is seen. There is moderate diffuse calcified aortic and arterial atherosclerosis. Osseous structures show no acute abnormalities. CT PELVIS: Umbilical hernia is noted and contains ascites. There is moderate ascites within the remainder of the pelvis. There is no loculated fluid collection or free air. Urinary bladder is unopacified. No calculi are seen within the urinary bladder. No abnormal pelvic adenopathy is seen. Osseous structures show no acute abnormalities. IMPRESSION: 1. Massive amount of abdominopelvic ascites. 2. Probable cirrhosis to the liver. 3. Splenomegaly, which may be on the basis of underlying portal venous hypertension. 4. Small micronodule within the right lower lobe. Again, this is stable compared to 10/21/2018. Dictated on workstation # [id number] Dict: 08/18/21 1215 Trans: 08/18/21 1226 [id number] Interpreted by: SARAH CORRIGAN MD Electronically signed by: Procedures Paracentesis Assessment/Plan Assessment/Plan Admission Diagonsis SOB, abdominal pain, symptomatic ascites Assessment/Plan Ascites secondary to MART requiring repeat paracentesis Discussed possibility of future permanent tube placement since Connor is requiring regular fluid drainage every few weeks Supplement and monitor albumin ZAC ANDREW DO 08/18/21 2000: History of Present Illness History of Present Illness History of Present Illness Patient seen and evaluated the emergency department. Consult requested by Holger Case. Patient is a 60-year-old male known to me with Mart and end-stage renal disease. Patient has been requiring increasing paracentesis is. Patient's last paracentesis was 2 weeks ago. Patient having more symptoms. He is having some shortness of breath. He is having some diffuse abdominal pain. Patient abdominal distention has gotten pretty significant again. Patient had CT scan performed which demonstrated abdominal pelvic ascites and characteristics of cirrhosis of the liver. Allergies and Home Medications Allergies Coded Allergies: No Known Drug Allergies (Unverified , 12/12/15) Patient Home Medication List Home Medication List Reviewed: Yes Bupropion HCl (Bupropion HCl) 100 Mg Tablet, 150 MG PO BID Prescribed by: GEORGE SUNSHINE on 10/22/18 1245 Carvedilol (Carvedilol) 12.5 Mg Tablet, 12.5 MG PO BID Prescribed by: GEORGE SUNSHINE on 10/22/18 1245 Cefdinir (Cefdinir) 300 Mg Capsule, 300 MG PO Q48H Prescribed by: MARTHA MADDEN on 10/23/18 1000 Famotidine (Pepcid) 20 Mg Tablet, 20 MG PO BID Prescribed by: GEORGE SUNSHINE on 10/22/18 1246 Lorazepam (Ativan) 2 Mg Tablet, 2 MG PO HS Prescribed by: GEORGE SUNSHINE on 10/22/18 1257 Omeprazole (Omeprazole) 40 Mg Capsule.dr, 40 MG PO DAILY Prescribed by: MARTHA MADDEN on 10/23/18 1000 Ondansetron (Ondansetron Odt) 4 Mg Tab.rapdis, 4 MG PO Q6H Prescribed by: MARTHA MADDEN on 10/23/18 1000 Prednisone (Prednisone) 1 Mg Tab, 6 MG PO DAILY Prescribed by: GEORGE SUNSHINE on 10/22/18 1259 Tramadol HCl (Tramadol HCl) 50 Mg Tablet, 50 MG PO Q6H Prescribed by: GEORGE SUNSHINE on 10/22/18 1256 Tramadol HCl (Ultram) 50 Mg Tablet, 50 MG PO Q6H PRN for PAIN-MODERATE (5-7) Prescribed by: HOLGER CASE on 03/22/21 1317 Past Zdjaldq-Dxhpft-Kkdzxh Hx Reviewed Nursing Assessment Reviewed/Agree w Nursing PMH: Yes Family Medical History Significant Family History: No Pertinent Family Hx Family Medial History: Alzheimer's disease 19 MOTHER, Onset:60 years & older Diabetes mellitus 19 FATHER, Onset:Unknown Review of Systems-General Constitutional: No chills, No diaphoresis EENTM: No blurred vision, No double vision Respiratory: dyspnea on exertion, short of breath Gastrointestinal: abdominal pain; No nausea, No vomiting Genitourinary: No decreased output, No discharge Musculoskeletal: No back pain, No joint pain Skin: No change in color, No change in hair/nails Psychiatric/Neurological: Denies Depressed, Denies Emotional Problems All Other Systems Reviewed Negative Unless Noted: Yes (Negative excepted noted.) Physical Exam-General Problems Physical Exam General Appearance: WD/WN, no apparent distress HEENT: PERRL/EOMI, normal ENT inspection Neck: supple, normal inspection Respiratory: chest non-tender, no respiratory distress, no accessory muscle use Cardiovascular: regular rate, rhythm, no JVD Gastrointestinal: distended (ascites), tenderness Rectal: deferred Back: no CVA tenderness, no vertebral tenderness Extremities: non-tender, no pedal edema, no calf tenderness Neurologic/Psychiatric: alert, normal mood/affect, oriented x 3 Skin: normal color, warm/dry Lymphatic: no adenopathy Assessment/Plan Assessment/Plan Assessment/Plan Ascites secondary to MART requiring repeat paracentesis cirrhosis of liver. End stage renal disease. Discussed possibility of future pleur-x cathter placement since Connor is requiring regular fluid drainage every few weeks he is not interested at this time. Discussed risks and benefits of u/s guided paracentesis nad he understands and wishes to proceed. Procedure: Ultrasound-guided paracentesis Patient had ultrasound used to isolate large pocket of fluid this was in the left lower quadrant. The area was prepped and draped in a sterile fashion timeout was performed local anesthetic was infiltrated through the abdominal wall. A 11 blade scalpel was used to make a small skin incision the safety centesis needle and catheter were then advanced through the abdominal wall until straw-colored fluid was withdrawn. The catheter was then advanced and the needle was withdrawn. A total of 6500 mL of straw-colored fluid was withdrawn. The catheter was then removed and sterile bandage was applied. Patient tolerated procedure well without complications. Supervisory-Addendum Brief Verification & Attestation Participated in pt care: history, MDM, physical Personally performed: exam, history, MDM, supervision of care Care discussed with: Medical Student Procedures: performed Results interpretation: Verified all documentation Verification and Attestation of Medical Student E/M Service A medical student performed and documented this service in my presence. I reviewed and verified all information documented by the medical student and made modifications to such information, when appropriate. I personally performed the physical exam and medical decision making. Zac Andrew, Aug 18, 2021,20:05 ZULEIKA DANGELO Aug 18, 2021 13:07 ZAC ANDREW DO Aug 18, 2021 20:00
== END 2021-08-18 14:20 | disposition other institution (70) ==
LOC: EDUNIT# 11:27 → ER 11:28
DX: R18.8 Other ascites (principal); K74.69 Other cirrhosis of liver; E11.22 Type 2 diabetes mellitus with diabetic chronic kidney disease; I12.0 Hypertensive chronic kidney disease with stage 5 chronic kidney disease or end stage renal disease; N18.6 End stage renal disease; K21.9 Gastro-esophageal reflux disease without esophagitis; F32.9 Major depressive disorder, single episode, unspecified; Z87.820 Personal history of traumatic brain injury; Z79.899 Other long term (current) drug therapy
CPT/HCPCS: 36415; 74176; 80053; 82140; 83690; 85007; 85027; 85610

== ENCOUNTER 2021-08-22 19:35 | Emergency (ER) | payer MEDICARE, OTHER ==
[~2021-08-22] VITALS: Ht 71 cm; Wt 81.6 kg
[2021-08-22] MEDS ORDERED: NS IV 1000 ML 1,000 ML IV SCH (20:00)
[2021-08-22 20:08] VITALS: BP 89/58
[2021-08-22 20:09] VITALS: BP 89/65
--- NOTE | 2021-08-22 20:13 | ED General ---
General Chief Complaint: Dizziness/Syncope Stated Complaint: FALL/HIT HEAD/LOST CONSCIOUSNESS/L ARM PAIN Source of Information: Patient (PT IS VERY POOR HISTORIAN ( NORMAL BASELINE, PER ), AND PT HAS NO RECOLLECTION OF EVENTS ), Spouse History of Present Illness Date Seen by Provider: Aug 22, 2021 Time Seen by Provider: 19:55 Initial Comments PT ARRIVES VIA POV FROM HOME WITH PT HAD UNWITNESSED FALL/SYNCOPAL EPISODE HEARD HIM, AND HE WAS UNCONSCIOUS FOR APPROXIMATELY 2 MINUTES, PER --SHE CALLED 911 PT HAS NO RECOLLECTION OF EVENTS BEFORE THIS OCCURRED PT STATES "I WOKE UP AND THE EMT'S WERE THERE" PT HAS ABRASION TO LEFT BROW-- STATES HE BROKE HIS GLASSES C/O LEFT ELBOW PAIN NO HEADACHE NO VISION CHANGES NO NECK OR BACK PAIN NO PARESTHESIAS OR MOTOR DEFICITS NO NAUSEA/VOMITING NO DIZZINESS NO LOSS OF BOWEL OR BLADDER FUNCTION NO CHEST PAIN NO SHORTNESS OF BREATH PT HAS HISTORY OF SEIZURES, BUT HAS NOT HAD A SEIZURE SINCE 11/2019 AND HAS BEEN ON KEPPRA SINCE THEN NO MISSED DOSES OF MEDICATIONS PT STATES HE DOES NOT THINK HE HAD A SEIZURE, AND REPORTS NO SEIZURE ACTIVITY, AND DOES NOT ACT LIKE HE DOES AFTER HE HAS A SEIZURE PT WITH AORTIC VALVE REPLACEMENT, BUT IS NOT ON ASPIRIN OR BLOOD THINNERS PT HAS ESRD AND IS ON DIALYSIS [id number]. LAST DIALYSIS WAS YESTERDAY. 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 NO INJURY TO THE FISTULA PT ALSO WITH CHRONIC ASCITES, AND PT WAS SEEN HERE IN ER AND HAD PARACENTESIS 08/18/21--REMOVED 6.5 L OF FLUID AT THAT TIME. PT ALSO RECEIVED IV ALBUMIN AFTERWARD. PCP: DR. TUCKER MARINA MANAGER: ADRIANA BENITEZ [facility] Allergies and Home Medications Allergies Coded Allergies: No Known Drug Allergies (Unverified , 12/12/15) Patient Home Medication List Home Medication List Reviewed: Yes Bupropion HCl (Bupropion HCl) 100 Mg Tablet, 150 MG PO BID Prescribed by: GEORGE SUNSHINE on 10/22/18 1245 Carvedilol (Carvedilol) 12.5 Mg Tablet, 12.5 MG PO BID Prescribed by: GEORGE SUNSHINE on 10/22/18 1245 Cefdinir (Cefdinir) 300 Mg Capsule, 300 MG PO Q48H Prescribed by: MARTHA MADDEN on 10/23/18 1000 Famotidine (Pepcid) 20 Mg Tablet, 20 MG PO BID Prescribed by: GEORGE SUNSHINE on 10/22/18 1246 Lorazepam (Ativan) 2 Mg Tablet, 2 MG PO HS Prescribed by: GEORGE SUNSHINE on 10/22/18 1257 Omeprazole (Omeprazole) 40 Mg Capsule.dr, 40 MG PO DAILY Prescribed by: MARTHA MADDEN on 10/23/18 1000 Ondansetron (Ondansetron Odt) 4 Mg Tab.rapdis, 4 MG PO Q6H Prescribed by: MARTHA MADDEN on 10/23/18 1000 Prednisone (Prednisone) 1 Mg Tab, 6 MG PO DAILY Prescribed by: GEORGE SUNSHINE on 10/22/18 1259 Tramadol HCl (Tramadol HCl) 50 Mg Tablet, 50 MG PO Q6H Prescribed by: GEORGE SUNSHINE on 10/22/18 1256 Tramadol HCl (Ultram) 50 Mg Tablet, 50 MG PO Q6H PRN for PAIN-MODERATE (5-7) Prescribed by: HOLGER DICKINSON on 03/22/21 1317 Review of Systems Review of Systems Constitutional: see HPI EENTM: see HPI Respiratory: no symptoms reported Cardiovascular: no symptoms reported Gastrointestinal: no symptoms reported Genitourinary: see HPI Musculoskeletal: see HPI Skin: see HPI Psychiatric/Neurological: See HPI Hematologic/Lymphatic: No Symptoms Reported Immunological/Allergic: no symptoms reported Past Nfgxzhg-Nwelyr-Cqhdqn Hx Patient Social History Tobacco Use?: No Use of E-Cig and/or Vaping dev: No Substance use?: No Alcohol Use?: No Pt feels they are or have been: No Immunizations Up To Date Tetanus Booster (TDap): More than 5yrs Third COVID19 Vaccination Date: MODERNA COVID19 Vaccine Transfer Coordinator: Moderna Seasonal Allergies Seasonal Allergies: No Past Medical History Surgery/Hospitalization HX: SEE BLEOW Surgeries: Yes (PERITONEAL AND HEMO DIALYSIS;L 5TH TOE AMPUTATED 03/2020;PARACENTESIS) Abdominal, Amputation, Cardiac, Coronary Stent, Dialysis, Tonsillectomy, Tracheostomy, Valve Replacement, Vascular Surgery Respiratory: Yes Cardiac: Yes (AORTIC VALVE REPLACEMENT) Atrial Fibrillation, Coronary Artery Disease, Endocarditis, Heart Murmur, Hypertension, Valvular Heart Disease Neurological: Yes Seizure Disorder, Stroke, Traumatic Brain Injury Genitourinary: Yes (PEROTONEAL AND HEMO DIALYSIS ) Renal Failure, Dialysis Gastrointestinal: Yes (S/P PEG TUBE AND REMOVAL;CHRONIC NAUSEA/VOMITING;ASCITES) Gastroesophageal Reflux, Liver Disease/Jaundice, Do's Esophagus, Gastrointestinal Bleed Musculoskeletal: Yes (RLE BRACE; IMPAIRED AMBULATION SECONDARY TO ALL OF THE ABOVE;L 5TH TOE AMPU) Amputee, Foot Drop Endocrine: Yes Diabetes, Non-Insulin dep HEENT: Yes (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) Cancer: No Psychosocial: Yes Depression Integumentary: Yes (SACRAL PRESSURE ULCER;RECTAL/GLUTEAL ABSCESS) Family Medical History Alzheimer's disease 19 MOTHER, Onset:60 years & older Diabetes mellitus 19 FATHER, Onset:Unknown No Pertinent Family Hx SOCIAL HISTORY: -SMOKED 1 PPD, QUIT 2017 -DRUGS--DENIES USE -ETOH--IN PAST, NONE NOW PSH: 2018--PT HAD GLUTEAL-ISCHIORECTAL ABSCESS, AND HAD I&D'S AND DEVELOPED SEPSIS/SEPTIC SHOCK WITH RESPIRATORY FAILURE AND WAS ON A VENTILATOR AND THEN EVENTUALLY A TRACH WAS PLACED PT DEVELOPED ENDOCARDITIS OF HIS AORTIC VALVE, AND EVENTUALLY HAD AORTIC VALVE REPLACED HE ALSO DEVELOPED ATRIAL FIBRILLATION HE ALSO HAD STEMI AND CARDIAC ARREST AND REQUIRED RESUSCITATION HE THEN UNDERWENT CARDIAC CATH AND STENTING HE DEVELOPED RENAL FAILURE AFTER CARDIAC ARREST, AND WAS STARTED ON DIALYSIS. HE ALSO REQUIRED A FEEDING TUBE DURING THIS TIME HE DEVELOPED STAGE 4 SACRAL PRESSURE ULCERS PT ALSO HAD MEDIASTINAL EXPLORATION AND HEMATOMA EVACUATION AT SOME POINT STATES "HE 7 TIMES" AND WAS HOSPITALIZED FOR 7 MONTHS--INITIALLY HERE, THEN AT [facility], THEN [facility] IN [place], THEN TO [facility] IN [place], THEN HERE FOR INPATIENT REHAB TIMES" AND WAS HOSPITALIZED FOR 7 MONTHS PT WAS ON PERITONEAL DIALYSIS AND IS NOW ON HEMODIALYSIS--TUE-TUE-TUE LEFT UPPER ARM A-V FISTULA/DIALYSIS GRAFT PT HAD FEEDING TUBE AND TRACH-BOTH OF WHICH HAVE BEEN REMOVED. PT ALSO DEVELOPED LIVER FAILURE AT SOME POINT PT HAS HAD MULTIPLE PARACENTESIS PROCEDURES FOR CHRONIC ASCITES PT HAS ALSO HAD 1 OR 2 STROKES AT SOME POINT WELL LEFT 5TH TOE AMPUTATION 03/2020 HERNIA REPAIR Physical Exam Vital Signs Vital Signs - First Documented 08/22/21 19:56 Temp 36.7 Pulse 75 Resp 18 B/P (MAP) 96/64 (75) Pulse Ox 100 O2 Delivery Room Air Capillary Refill : Height, Weight, BMI Height: 5'11.00" Weight: 169lbs. 11.2oz. 76.446383pr; 28.00 BMI Method:Stated General Appearance: No Apparent Distress, Chronically ill, Other (NO INCONTINENCE) HEENT: Pale Conjunctivae (L), Pale Conjunctivae (R), Scleral Icterus (L), Scleral Icterus (R) Neck: Normal Inspection Respiratory: Normal Breath Sounds, No Accessory Muscle Use, No Respiratory Distress Cardiovascular: Regular Rate, Rhythm, No Edema, Systolic Murmur (10/22) Gastrointestinal: Non Tender, Soft, Other (ROTUND WITH ASCITES, BUT IS SOFT) Extremity: Pedal Edema (TRACE BILATERALLY), Swelling (TENDERNESS AND SWELLING AND LIMITED ROM TO LEFT ELBOW. LEFT UPPER ARM A-V DIALYSIS GRAFT APPEARS INTACT AND NO EVIDENCE OF INJURY TO THIS ARE. ), Other (CHRONIC VENOUS STASIS CHANGES TO BILATERAL LOWER EXTREMITIES) Neurologic/Psychiatric: Alert, No Motor/Sensory Deficits (GROSSLY INTACT), Other (FLAT AFFECT. ORIENTED TO PERSON, PLACE, GROSSLY ORIENTED TO SITUATION BUT HAS NO RECOLLECTION OF EVENTS OF TODAY, GROSSLY ORIENTED TO MONTH/YEAR. VERY POOR MEMORY-- STATES IS NORMAL) Skin: Warm/Dry, Jaundice, Pallor Procedures/Interventions Splinting and Joint Reduction : Arm Sling: Slovan Hand-Made Type: orthoglass Splint Application: Long Arm (POSTERIOR SPLINT, WITH CARE TAKEN TO AVOID ANY PRESSURE ON LEFT UPPER ARM A-V DIALYSIS GRAFT. ) Progress/Results/Core Measures Suspected Sepsis SIRS Temperature: Pulse: Respiratory Rate: Laboratory Tests 08/22/21 20:20: White Blood Count 6.5 Blood Pressure / Mean: Laboratory Tests 08/22/21 20:20: Creatinine 4.77#H, INR Comment 1.2, Platelet Count 191, Total Bilirubin 0.6 Results/Orders Lab Results Laboratory Tests Test 08/22/21 20:20 Range/Units White Blood Count 6.5 4.3-11.0 10^3/uL Red Blood Count 2.55 L 4.30-5.52 10^6/uL Hemoglobin 8.4 L 13.3-17.7 g/dL Hematocrit 25 L 40-54 % Mean Corpuscular Volume 99 80-99 fL Mean Corpuscular Hemoglobin 33 25-34 pg Mean Corpuscular Hemoglobin Concent 33 32-36 g/dL Red Cell Distribution Width 13.2 10.0-14.5 % Platelet Count 191 130-400 10^3/uL Mean Platelet Volume 10.3 9.0-12.2 fL Immature Granulocyte % (Auto) 2 % Neutrophils (%) (Auto) 77 H 42-75 % Lymphocytes (%) (Auto) 8 L 12-44 % Monocytes (%) (Auto) 10 0-12 % Eosinophils (%) (Auto) 4 0-10 % Basophils (%) (Auto) 1 0-10 % Neutrophils # (Auto) 5.0 1.8-7.8 10^3/uL Lymphocytes # (Auto) 0.5 L 1.0-4.0 10^3/uL Monocytes # (Auto) 0.6 0.0-1.0 10^3/uL Eosinophils # (Auto) 0.2 0.0-0.3 10^3/uL Basophils # (Auto) 0.0 0.0-0.1 10^3/uL Immature Granulocyte # (Auto) 0.1 0.0-0.1 10^3/uL Prothrombin Time 15.5 H 12.2-14.7 SEC INR Comment 1.2 0.8-1.4 Activated Partial Thromboplast Time 34 24-35 SEC Sodium Level 134 L 135-145 MMOL/L Potassium Level 4.1 3.6-5.0 MMOL/L Chloride Level 94 L 98-107 MMOL/L Carbon Dioxide Level 28 21-32 MMOL/L Anion Gap 12 5-14 MMOL/L Blood Urea Nitrogen 31 H 7-18 MG/DL Creatinine 4.77 #H 0.60-1.30 MG/DL Estimat Glomerular Filtration Rate 13 BUN/Creatinine Ratio 6 Glucose Level 152 H 70-105 MG/DL Calcium Level 8.9 8.5-10.1 MG/DL Corrected Calcium 9.8 8.5-10.1 MG/DL Magnesium Level 2.0 1.6-2.4 MG/DL Total Bilirubin 0.6 0.1-1.0 MG/DL Aspartate Amino Transf (AST/SGOT) 18 5-34 U/L Alanine Aminotransferase (ALT/SGPT) 12 0-55 U/L Alkaline Phosphatase 151 H 40-136 U/L Ammonia 20 11-32 UMOL/L Total Creatine Kinase 75 30-200 U/L Creatine Kinase MB 7.5 *H <6.6 NG/ML Myoglobin 437.1 H 10.0-92.0 NG/ML Troponin I < 0.028 <0.028 NG/ML Total Protein 5.5 L 6.4-8.2 GM/DL Albumin 2.9 L 3.2-4.5 GM/DL Amylase Level 64 25-125 U/L Lipase 52 8-78 U/L Serum Alcohol < 10 <10 MG/DL My Orders Orders - JEYSON AGUILAR DO Ed Iv/Invasive Line Start (08/22/21 19:59) Ekg Tracing (08/22/21:59) Monitor-Rhythm Ecg Trace Only (08/22/21:59) Ct Head/Face/Cervical Wo (08/22/21:59) Chest 1 View, Ap/Pa Only (08/22/21:59) Elbow, Left, 3 Views (08/22/21:59) Pelvis (08/22/21:59) Alcohol (08/22/21:59) Ammonia (08/22/21:59) Amylase (08/22/21:59) Cbc With Automated Diff (08/22/21:59) Comprehensive Metabolic Panel (08/22/21:59) Creatine Kinase (08/22/21:59) Creatine Kinase Mb (08/22/21:59) Drug Screen Stat (Urine) (08/22/21 19:59) Lipase (08/22/21 19:59) Magnesium (08/22/21:59) Protime With Inr (08/22/21:59) Partial Thromboplastin Time (08/22/21:59) Ua Culture If Indicated (08/22/21:59) Myoglobin Serum (08/22/21 19:59) Troponin I (08/22/21:59) Ed Iv/Invasive Line Start (08/22/21:59) Ns Iv 1000 Ml (Sodium Chloride 0.9%) (08/22/21 20:00) Orthostatic Vital Signs (Adult (08/22/21 20:03) Dipht,Pertuss(Acell),Tet Adult (Boostrix (08/22/21 20:15) Ns (Ivpb) (Sodium Chloride 0.9%) (08/22/21 20:37) Ed Ortho/Other Supplies Order (08/22/21 21:22) Fentanyl Inj (Sublimaze Injection) (08/22/21 21:30) Ondansetron Injection (Zofran Injectio (08/22/21 23:00) Ondansetron Injection (Zofran Injectio (08/22/21 22:51) Medications Given in ED Current Medications Medications Dose Ordered Sig/Anup Route Start Time Stop Time Status Last Admin Dose Admin Diphtheria/ Tetanus/Acell Pertussis 0.5 ml ONCE ONCE IM 08/22/21 20:15 08/22/21 20:16 DC 08/22/21 21:06 0.5 ML Fentanyl Citrate 50 mcg ONCE ONCE IVP 08/22/21 21:30 08/22/21 21:31 DC 08/22/21 21:41 50 MCG Ondansetron HCl 4 mg ONCE ONCE IVP 08/22/21 23:00 08/22/21 23:01 DC 08/22/21 22:55 4 MG Sodium Chloride 250 ml @ STK-MED ONCE .ROUTE 08/22/21 20:37 08/22/21 20:41 DC 08/22/21 21:05 250 MLS/HR Vital Signs/I&O 08/22/21 08/22/21 08/22/21 08/22/21 19:56 20:08 20:09 20:14 Temp 36.7 Pulse 75 75 80 75 Resp 18 B/P (MAP) 96/64 (75) 89/58 (68) 89/65 (73) 90/59 (69) Pulse Ox 100 O2 Delivery Room Air Capillary Refill : Progress Note : Progress Note NO DETERIORATION IN PT'S CONDITION DURING ER STAY ECG Initial ECG Impression Date: Aug 22, 2021 Initial ECG Impression Time: 20:15 Initial ECG Rate: 74 Initial ECG Rhythm: Normal Sinus (INCOMPLETE RBBB) Initial ECG Impression: Nonspecific Changes Diagnostic Imaging Comments CXR--PER RADIOLOGIST REPORT AT 2120 FINDINGS: Sternotomy with cardiac valve prosthesis. Normal heart size. Normal pulmonary vascularity. No focal pulmonary opacity. No pleural effusion or pneumothorax. No acute osseous finding. IMPRESSION: No acute cardiopulmonary finding. LEFT ELBOW XRAYS--PER RADIOLOGIST REPORT AT 2120 FINDINGS: Mildly comminuted displaced supracondylar fracture of the distal left humerus. Left elbow joint effusion. No dislocation. Left radial head appears intact. Surgical clips in the anterior left arm. IMPRESSION: Mildly displaced and comminuted left supracondylar fracture of the distal left humerus. The visualized ulna and radius appear intact. CT HEAD/MAXILLOFACIALS/CERVICAL SPINE--PER RADIOLOGIST REPORT AT 2142 FINDINGS: CT head and maxillofacial: Moderate to advanced generalized volume loss. Chronic infarct in the right posterior frontal lobe. There is a smaller infarct in the right occipital lobe measuring up to 1.4 cm which is more age indeterminate. No priors are available for comparison. Intracranial vascular calcifications. No intracranial hemorrhage, mass effect, hydrocephalus or extra-axial fluid collection. The skull base and calvarium are intact. The mastoids are clear. The paranasal sinuses are clear. Chronic appearing left lamina papyracea fracture. CT cervical spine: Normal alignment. Vertebral body heights are preserved. No fracture. Moderate spondylotic changes. No high-grade spinal canal stenosis is evident on soft tissue windows. Moderate atherosclerotic calcifications in the carotid bifurcations. The lung apices are clear. No acute maxillofacial fracture. IMPRESSION: 1. Large chronic infarct in the posterior right frontal lobe. There is a smaller more age indeterminate infarct in the right occipital lobe measuring up to 1.4 cm. This could be better evaluated with MRI. 2. No evidence of intracranial hemorrhage. 3. Left lamina papyracea fracture appears to be chronic. The associated ethmoid air cells are clear. No other maxillofacial fracture. 4. No acute CT finding in the cervical spine. Reviewed: Reviewed by Ga Departure Communication (Admissions) 2142--CALLED [facility] TRANSFER LINE. WILL CALL BACK [phone]--[facility] CALLED BACK. THEY WILL PAGE HOSPITALIST AND CALL BACK [phone]--SPOKE WITH DR. ZARAGOZA, HOSPITALIST, ACCEPTS PT FOR ADMIT Impression Primary Impression: Episode of syncope Additional Impressions: Left elbow fracture ESRD (end stage renal disease) on dialysis History of heart valve replacement CAD (coronary artery disease) Anemia Cirrhosis of liver with ascites HX OF SEIZURES Disposition: XF SHT-TRM HOSP Condition: Stable Transfer Transfer Reason: Exceeds level of care Transfer Facility: [facility] Method of Transfer: EMS Departure-Patient Inst. Referrals: KEILA TUCKER DO (PCP/Family) Primary Care Physician JEYSON AGUILAR DO Aug 22, 2021 20:13
[2021-08-22 20:14] VITALS: BP 90/59
[2021-08-22] MEDS ORDERED: TETANUS,DIPTH,PERTUSS P/F (BOOSTRIX) 0.5 ML VIAL IM ONE (20:15)
[2021-08-22] MEDS ORDERED: NS (IVPB) 250 ML ONE (20:37)
[2021-08-22 20:41] LABS: BASOPHILS % (AUTO) 1 % (0-10); EOSINOPHILS # (AUTO) 0.2 10^3/uL (0.0-0.3); EOSINOPHILS % (AUTO) 4 % (0-10); HEMATOCRIT 25 % (40-54); HEMOGLOBIN 8.4 g/dL (13.3-17.7); LYMPHOCYTES # (AUTO) 0.5 10^3/uL (1.0-4.0); LYMPHOCYTES % (AUTO) 8 % (12-44); MEAN CORPUSCULAR HEMOGLOBIN 33 pg (25-34); MEAN CORPUSCULAR HGB CONC 33 g/dL (32-36); MEAN CORPUSCULAR VOLUME 99 fL (80-99); MEAN PLATELET VOLUME 10.3 fL (9.0-12.2); MONOCYTES # (AUTO) 0.6 10^3/uL (0.0-1.0); MONOCYTES % (AUTO) 10 % (0-12); NEUTROPHILS % (AUTO) 77 % (42-75); PLATELET COUNT 191 10^3/uL (130-400); WHITE BLOOD COUNT 6.5 10^3/uL (4.3-11.0)
[2021-08-22 20:47] LABS: INR 1.2 (0.8-1.4); PROTHROMBIN TIME PATIENT 15.5 SEC (12.2-14.7)
[2021-08-22 20:51] LABS: ALANINE AMINOTRANSFERASE 12 U/L (0-55); ALBUMIN 2.9 GM/DL (3.2-4.5); ALKALINE PHOSPHATASE 151 U/L (40-136); AMMONIA 20 UMOL/L (11-32); AMYLASE 64 U/L (25-125); BILIRUBIN,TOTAL 0.6 MG/DL (0.1-1.0); BUN/CREATININE RATIO 6; CALCIUM 8.9 MG/DL (8.5-10.1); CARBON DIOXIDE 28 MMOL/L (21-32); CHLORIDE 94 MMOL/L (98-107); CREATINE KINASE 75 U/L (30-200); CREATININE SERUM 4.77 MG/DL (0.60-1.30); GFR ESTIMATED 13; GLUCOSE 152 MG/DL (70-105); LIPASE 52 U/L (8-78); POTASSIUM 4.1 MMOL/L (3.6-5.0); SODIUM 134 MMOL/L (135-145); TOTAL PROTEIN 5.5 GM/DL (6.4-8.2)
--- NOTE | 2021-08-22 21:08 | Diagnostic Imaging Report ---
EXAM: CHEST 1 VIEW, AP/PA ONLY. INDICATION: Syncope. History of valve replacement. COMPARISON: 04/18/2020. FINDINGS: Sternotomy with cardiac valve prosthesis. Normal heart size. Normal pulmonary vascularity. No focal pulmonary opacity. No pleural effusion or pneumothorax. No acute osseous finding. IMPRESSION: No acute cardiopulmonary finding. Dictated by: Dictated on workstation # [id number]
--- NOTE | 2021-08-22 21:12 | Diagnostic Imaging Report ---
EXAM: ELBOW, LEFT, 3 VIEWS INDICATION: Left elbow pain. COMPARISON: None. FINDINGS: Mildly comminuted displaced supracondylar fracture of the distal left humerus. Left elbow joint effusion. No dislocation. Left radial head appears intact. Surgical clips in the anterior left arm. IMPRESSION: Mildly displaced and comminuted left supracondylar fracture of the distal left humerus. The visualized ulna and radius appear intact. Dictated by: Dictated on workstation # [id number]
[2021-08-22 21:15] LABS: CREATINE KINASE MB 7.5 NG/ML (<6.6)
--- NOTE | 2021-08-22 21:19 | Diagnostic Imaging Report ---
EXAM: PELVIS. INDICATION: Pelvic pain. COMPARISON: CT abdomen and pelvis without contrast 08/18/2021. FINDINGS: Examination is limited by overlying soft tissues and underpenetration. Vascular calcifications. No fracture or malalignment. Mild degenerative changes in both hips. IMPRESSION: No acute radiographic finding identified in the pelvis. Dictated by: Dictated on workstation # [id number]
[2021-08-22] MEDS ORDERED: fentaNYL INJ 100 MCG/2 ML AMP IVP ONE (21:30)
--- NOTE | 2021-08-22 21:37 | Diagnostic Imaging Report ---
PROCEDURE: CT head, face and cervical spine without contrast. TECHNIQUE: Multiple contiguous axial images were obtained through the head, neck, and facial bones without the use of intravenous contrast. Sagittal and coronal reformations through the cervical spine and facial bones were also performed. Auto Exposure Controls were utilized during the CT exam to meet ALARA standards for radiation dose reduction. INDICATION: Trauma. Head injury and pain. Syncope. COMPARISON: None. FINDINGS: CT head and maxillofacial: Moderate to advanced generalized volume loss. Chronic infarct in the right posterior frontal lobe. There is a smaller infarct in the right occipital lobe measuring up to 1.4 cm which is more age indeterminate. No priors are available for comparison. Intracranial vascular calcifications. No intracranial hemorrhage, mass effect, hydrocephalus or extra-axial fluid collection. The skull base and calvarium are intact. The mastoids are clear. The paranasal sinuses are clear. Chronic appearing left lamina papyracea fracture. CT cervical spine: Normal alignment. Vertebral body heights are preserved. No fracture. Moderate spondylotic changes. No high-grade spinal canal stenosis is evident on soft tissue windows. Moderate atherosclerotic calcifications in the carotid bifurcations. The lung apices are clear. No acute maxillofacial fracture. IMPRESSION: 1. Large chronic infarct in the posterior right frontal lobe. There is a smaller more age indeterminate infarct in the right occipital lobe measuring up to 1.4 cm. This could be better evaluated with MRI. 2. No evidence of intracranial hemorrhage. 3. Left lamina papyracea fracture appears to be chronic. The associated ethmoid air cells are clear. No other maxillofacial fracture. 4. No acute CT finding in the cervical spine. Dictated by: Dictated on workstation # [id number]
[2021-08-22] MEDS ORDERED: ONDANSETRON 4 MG/2 ML (SDV) Z0FRAN ONE (22:51)
[2021-08-22] MEDS ORDERED: ONDANSETRON 4 MG/2 ML (SDV) Z0FRAN IVP ONE (23:00)
== END 2021-08-23 00:30 | disposition short-term general hospital (02) ==
LOC: EDUNIT# 19:35 → ER 19:38
DX: S42.402A Unspecified fracture of lower end of left humerus, initial encounter for closed fracture (principal); R55 Syncope and collapse; E11.22 Type 2 diabetes mellitus with diabetic chronic kidney disease; I12.0 Hypertensive chronic kidney disease with stage 5 chronic kidney disease or end stage renal disease; N18.6 End stage renal disease; I25.10 Atherosclerotic heart disease of native coronary artery without angina pectoris; D64.9 Anemia, unspecified; K74.69 Other cirrhosis of liver; R18.8 Other ascites; F32.9 Major depressive disorder, single episode, unspecified; K21.9 Gastro-esophageal reflux disease without esophagitis; Z23 Encounter for immunization; Z87.820 Personal history of traumatic brain injury; Z79.52 Long term (current) use of systemic steroids; Z79.899 Other long term (current) drug therapy; W19.XXXA Unspecified fall, initial encounter
CPT/HCPCS: 70450; 70486; 71045; 72125; 72170; 73080; 80053; 82140; 82150; 82550; 82553; 83690; 83735; 83874; 84484; 85025; 85610; 85730; 90471; 93005; 93041; 96374; 96375; 99285; G0480; 36415; 80320; 90715

== ENCOUNTER → 2021-10-01 | Outpatient (CLI) | payer MEDICARE, OTHER ==
[~2021-10-01] VITALS: Ht 180.3 cm; Wt 86.4 kg
--- NOTE | 2021-10-01 12:55 | Diagnostic Imaging Report ---
Indication: Ascites. Patient presents for ultrasound-guided paracentesis. Sonographic guidance was provided for Dr. Sutton for performance of paracentesis. There is a moderate amount of fluid in the right lower quadrant. There are numerous septations throughout the ascites in the left upper and left lower quadrant. IMPRESSION: Sonographic guidance for Dr. Sutton for performance of paracentesis. Dictated by: Dictated on workstation # [id number]
--- NOTE | 2021-10-02 06:58 | OPERATIVE REPORT ---
DATE OF SERVICE: 10/01/2021 PREOPERATIVE DIAGNOSIS: Symptomatic ascites. POSTOPERATIVE DIAGNOSIS: Symptomatic ascites. PROCEDURE: Ultrasound-guided paracentesis. SURGEON: Zac Sutton DO ANESTHESIA: A 1% lidocaine 3 mL. COMPLICATIONS: None. INDICATIONS: The patient is a 60-year-old male with symptomatic ascites. He understands risks and benefits of procedure and wishes to proceed. Consent was signed in the chart. DESCRIPTION OF PROCEDURE: The patient was taken to the procedure room. The ultrasound was used to locate the largest pocket of visible. Once this was located, is on the right side of the abdomen, the area was prepped and draped in sterile fashion. Local anesthetic was infiltrated. A #11 blade scalpel was used to make a small skin incision and the [id number] needle and catheter were then advanced until straw-colored fluid was withdrawn. The catheter was then advanced, and the needle was removed. A total of 1650 mL of straw-colored fluid was withdrawn. The catheter was then removed, and sterile bandage was applied. The patient tolerated procedure well without any complications. Job ID: [id number] DocumentID: [id number] Dictated Date: 10/01/2021 22:46:13 Coffee Shop Aide Date: 10/02/2021 06:58:38 Dictated By: ZAC SUTTON DO
== END ==
LOC: RAD 10:45
PROVIDERS: ATTEND Surgery
DX: R18.8 Other ascites (principal)
CPT/HCPCS: 49083; A7048